=== PATIENT | female | born 1975 | race Caucasian/White ===

== ENCOUNTER 2022-12-13 18:43 | Inpatient (IN) | payer OTHER, SELFPAY ==
--- NOTE | ~2022-12-13 | XR_ITS ---
EXAMINATION: XR CHEST CLINICAL INFORMATION: Orogastric tube placement COMPARISON: None available. TECHNIQUE: Frontal view of the chest was obtained. FINDINGS: No tracheal tube terminates 1.5 cm above the nazia. Enteric tube terminates in the stomach. Mild bronchial wall thickening. Right perihilar streaky opacities. No pleural effusion or pneumothorax. Normal heart size. Pulmonary venous congestion without overt edema. No acute osseous abnormalities. XR/XR chest 1V IMPRESSION: * Endotracheal tube terminates 1.5 cm above the nazia. * Enteric tube terminates in the stomach. * Mild bronchial wall thickening and right perihilar streaky opacities may represent bronchitis and/or atypical infection.
[2022-12-13 18:59] VITALS: BP 150/90; BP 160/82; PULSE 110; PULSE 113; RESP 25; TEMP 37.1; O2SAT 95; O2SAT 97; BMI 30.9
--- NOTE | 2022-12-13 19:06 | ED_ITS ---
HPI - General Adult General Chief complaint: General Medical Stated complaint: [facility]- ETOH withdrawl Time Seen by Provider: 12/13/22 19:06 Source: patient and EMS Mode of arrival: EMS Limitations: no limitations History of Present Illness HPI narrative: Patient is a 47 year old assigned female at with a history of alcohol abuse and opiate abuse presenting to the emergency department today with withdrawal. Patient states that she is withdrawing from alcohol and opiates. Patient denies any dizziness, lightheadedness, abdominal pain, nausea, vomiting, fever, chills, blurry vision, double vision, loss of vision, chest pain, difficulty breathing, shortness of breath, back pain, night sweats, pain with urination, increased urinary frequency, increased urinary urgency, blood in her urine or stool, syncope or a near syncopal episode, recent trauma or falls, bowel incontinence, bladder incontinence, bowel retention, bladder retention, or any other complaints at this time. Severity: moderate Severity scale (1-10): 5 Relieving factors: none Exacerbating factors: none Associated symptoms: denies other symptoms Treatments prior to arrival: other (1mg of Ativan and 100mg of Benadryl) Related Data Allergies Allergy/AdvReac Type Severity Reaction Status Date / Time aspirin Allergy Unknown Verified 12/13/22 19:23 Review of Systems 2 Constitutional: Constitutional: Reports no additional constitutional complaints, Denies chills, Denies fever(s) and Denies night sweats Eyes: Eyes: Reports no additional eye complaints, Denies blurry vision, Denies change in vision, Denies diplopia, Denies eye discharge, Denies loss of vision and Denies eye pain ENT: Denies dizziness Cardiovascular: Cardiovascular: Reports no additional cardiovascular complaints, Denies chest pain, Denies lightheadedness, Denies Loss of Consciousness and Denies dyspnea Respiratory: Respiratory: Reports no additional respiratory complaints and Denies dyspnea Gastrointestinal: Gastrointestinal: Reports no additional gastrointestinal complaints, Denies abdominal pain, Denies melena, Denies hematochezia, Denies change in bowel habits and Denies change in stool character Genitourinary: Genitourinary: Denies hematuria, Denies urinary frequency, Denies dysuria, Denies urinary incontinence, Denies urinary hesitancy and Denies urinary urgency Musculoskeletal: Musculoskeletal: Reports no additional musculoskeletal complaints, Denies numbness and Denies tingling Neurologic: Denies dizziness, Denies loss of vision, Denies numbness, Reports restless legs and Denies tingling Psychiatric: Psychiatric: Reports no additional psychiatric complaints Endocrine: Endocrine: Reports no additional endocrine complaints Hematologic/Lymphatic: Hematologic/Lymphatic: Reports no additional hematologic/lymphatic complaints Allergic/Immunologic: Allergic/Immunologic: Reports no additional allergic/immunologic complaints PMFSH Past Medical History Attestation statement: The following information was validated with the patient. Source: old records reviewed and nursing notes reviewed Social History Social History Advance Directives: No Advance Directives Information Provided: No Physical Exam ED Vital Signs: Vital Signs - 24 hr 12/13/22 18:59 Temperature 98.7 F Pulse Rate 110 H Respiratory Rate 25 H Blood Pressure 150/90 H Pulse Oximetry 97 Oxygen Delivery Method Room Air BMI result Body Mass Index 30.9 Const General: cooperative, no acute distress, alert and awake Nutritional Appearance: well nourished Orientation/consciousness: patient oriented x3 Limitations: no limitations HENMT Head: Yes normal to inspection and Yes atraumatic Ears: hearing grossly normal bilaterally and external ears normal General nose exam: Normal external nose present, no nasal discharge noted and no epistaxis Face and sinus: Yes normal facial exam, No abrasion and No laceration Mouth: Normal oral and palatal mucosa present, no drooling and no muffled voice Eyes General: appearance normal, both eyes and all related structures Periorbital: periorbital findings normal Eyelids: Yes eyelids normal Conjunctivae: conjunctivae normal Pupils: Equal, round and reactive pupils present EOM: EOMs intact bilaterally Neck Neck: Yes normal visual inspection, Yes full ROM and Yes no lymphadenopathy Chest Chest palpation & inspection: normal inspection of the chest Resp Effort & Inspection: normal respiratory effort and able to speak in complete sentences Auscultation: clear to auscultation bilaterally Cardio Rate: tachycardic Rhythm: regular rhythm GI Inspection: Yes normal to inspection Neuro General: patient oriented x3 and moves all extremities Cranial nerves: Yes Equal, round and reactive pupils present Cognition (Neuro): normal cognition Motor exam (neuro): 5/5 motor strength present throughout Sensory Exam: Normal double simultaneous stimulation for sensation Coordination: [id number] test normal Extrem General: Yes normal to inspection, Yes full ROM and Yes capillary refill normal Psych Affect: Labile affect present Attitude: cooperative Thought process: Normal thought process present Thought content: Normal thought content present Medications Administered Discontinued Medications Generic Name Dose Route Start Last Admin Trade Name Jason PRN Reason Stop Dose Admin Haloperidol Lactate 5 mg 12/13/22 19:08 12/13/22 19:12 Haloperidol Lactate 5 Mg/Ml Vial IM 12/13/22 19:09 5 mg ONCE ONE Administration Thiamine HCl 100 mg/ Sodium 101 mls @ 202 mls/hr 12/13/22 21:17 12/13/22 22:30 Chloride IV 12/13/22 21:46 Infused ONCE ONE Infusion Sodium Chloride 1,000 mls @ 999 mls/hr 12/13/22 21:45 12/13/22 22:33 Ns IV 12/13/22 22:45 999 mls/hr .Q1H1M NOAH Administration Lorazepam 2 mg 12/13/22 20:52 12/13/22 21:02 Lorazepam 1 Mg Tablet PO 12/13/22 20:53 2 mg ONCE ONE Administration Lorazepam 2 mg 12/13/22 22:58 12/13/22 23:06 Lorazepam 2 Mg/Ml Vial IVPUSH 12/13/22 22:59 2 mg ONCE ONE Administration Olanzapine 10 mg 12/13/22 21:26 12/13/22 22:07 Olanzapine 10 Mg Vial IM 12/13/22 21:27 10 mg ONCE ONE Administration Phenobarbital Sodium 219 mg 12/13/22 21:30 12/13/22 22:08 Phenobarbital Sodium 130 Mg/Ml Im Once IM 12/13/22 21:31 219 mg ONCE ONE Administration Protocol Zolpidem Tartrate 5 mg 12/13/22 19:37 12/13/22 19:47 Zolpidem Tartrate 5 Mg Tablet PO 12/13/22 19:38 5 mg ONCE ONE Administration Medical Decision Making Medical Decision Making MDM Narrative: Patient is a 47 year old assigned female at with a history of alcohol and drug abuse presenting to the emergency department today with withdrawal. Patient's physical exam showed a restless individual with a CIWA of >20. Patient's blood work showed elevated LFTs which is consistent with alcohol abuse. Patient's EKG showed tachycardia but was otherwise unremarkable. Patient was given multiple medications to help with her restlessness / withdrawal including PO Ativan and Benadryl prior to arrival. Patient was given IV Haldol, IV Zyprexa, and PO Ativan. Patient was not given these as a medical restraint. Patient was started on the phenobarb protocol. I spoke to the hospitalist who initially agreed to admission however, the patient continued to be restless and after discussing the case again with the hospitalist, we determined ICU level of care would be more appropriate. Spoke to the cable splicer assistant who agreed to admission to the ICU. Differential Diagnosis Differential Diagnoses: The differential diagnosis associated with the presentation includes Alcohol withdrawal Drug withdrawal Restlessness Admission/Observation Consideration of admission/observation: Escalation of care including admission/observation considered Patient admitted. Consult Healthcare Provider Management of the patient was discussed with: Hospitalist (As noted in the MDM rationale portion of this note.) and Concrete Curer (Spoke to the cable splicer assistant as noted in the MDM rationale portion of this note.) Lab Data [facility] Lab Attestation statement: I reviewed the patient's lab results. My interpretation of these results are in the MDM rationale portion of this note. 12/13/22 19:26 12/13/22 19:26 Labs: Lab Results 12/13/22 12/13/22 Range/Units 19:26 21:54 WBC 4.1 L (4.8-10.8) X10*3/uL RBC 4.40 (4.20-5.50) X10*6/uL Hgb 10.9 L (12.0-16.0) g/dl Hct 33.4 L (37.0-47.0) % MCV 75.9 L (80.0-98.0) fL MCH 24.8 L (27.0-33.0) pg MCHC 32.6 (31.0-35.0) g/dl RDW 19.9 H (11.0-16.0) % Plt Count 52 L (160-400) X10*3/uL MPV TNP Immature Gran % (Auto) 0.2 (0.0-0.4) % Neut % (Auto) 72.3 (45-73) % Lymph % (Auto) 19.0 L (20-40) % [facility] % (Auto) 8.1 (2-11) % Eos % (Auto) 0.2 (0-4) % Baso % (Auto) 0.2 (0-2) % Lymph # (Auto) 0.8 L (1.2-4.9) X10*3/uL [facility] [place] [facility] # (Auto) 0.3 (0.1-1.2) X10*3/uL Eos # (Auto) 0.0 (0.0-0.4) X10*3/uL Baso # (Auto) 0.0 (0.0-0.2) X10*3/uL Abs Immat Gran (auto) 0.01 (0.00-0.03) X10*3/uL Absolute Neuts (auto) 2.9 (2.0-8.3) x10*3/uL Absolute Nucleated RBC 0.000 (0.0-0.012) X10*3/uL Nucleated RBC % (auto) 0.0 (0.0-0.2) /100WBC PT 19.0 H (11.1-13.3) SEC INR 1.6 H (0.9-1.1) APTT 38.4 H (26.0-36.4) SEC Sodium 138 (135-145) mmol/L Potassium 3.7 (3.3-5.1) mmol/L Chloride 104 (96-108) mmol/L Carbon Dioxide 21 L (22-29) mmol/L Anion Gap 17 (12-20) BUN 11 (9-16) mg/dL Creatinine 0.86 (0.5-1.4) mg/dL Estim Creat Clear Calc 83.6 Estimated GFR > 60 Random Glucose 107 (60-115) mg/dL Calcium 10.4 H (8.4-10.2) mg/dL Magnesium 1.8 (1.6-2.6) mg/dL Iron 47 (30-160) mcg/dL TIBC 372 (228-428) mcg/dL % Saturation 13 L (15-50) % Unsat Iron Binding 325 ug/dL Total Bilirubin 4.1 H (0.0-1.0) mg/dL AST 79 H (5-31) U/L ALT 36 H (0-31) U/L Alkaline Phosphatase 82 (39-117) U/L Total Protein 8.7 H (6.5-8.0) g/dL Albumin 3.3 L (3.5-5.0) g/dL Ethyl Alcohol < 10 Cancelled mg/dL Influenza Type A (PCR) NEGATIVE (Negative) Influenza Type B (PCR) NEGATIVE (Negative) RSV RNA Qual (PCR) NEGATIVE (Negative) SARS-CoV-2 RNA (RT-PCR) NEGATIVE (Negative) Independent Interpretation I performed an independent interpretation of an: EKG Interpretation: Vent. Rate: 116 BPM Atrial Rate: 116 BPM P-R Int: 086 ms QRS Dur: 088 ms QT Int: 368 ms P-R-T Axes: 004 -39 060 degrees QTc Int: 511 ms Sinus tachycardia with short CA Left axis deviation Nonspecific ST abnormality Abnormal ECG No previous ECGs available DD/ 43 Independent Historian Clinical information obtained from an independent historian. History obtained from or confirmed by: EMS (EMS provided additional history and confirmed the history provided by the patient and [facility].) and Other ([facility] staff provided additional history and confirmed the history provided by the patient and EMS. ) Critical Care Time Critical Care Time Critical Care Time: Yes Total Critical Care Time: 55 Attestation: I spent 55 minutes of Critical Care Time with this patient. This does not include time spent on separately reported billable procedures. Discharge Plan Discharge Clinical Impression: Alcohol withdrawal Patient Disposition: Admitted As Inpatient
--- NOTE | 2022-12-13 19:08 | ECG_ITS ---
Test Reason : WITHDRAWAL Blood Pressure : / mmHG Vent. Rate : 116 BPM Atrial Rate : 116 BPM P-R Int : 086 ms QRS Dur : 088 ms QT Int : 368 ms P-R-T Axes : 004 -39 060 degrees QTc Int : 511 ms Sinus tachycardia with short IN Left axis deviation RSR' or QR pattern in V1 suggests right ventricular conduction delay Abnormal ECG No previous ECGs available Referred By: Lidia Smith Electronically Signed By:COURTNEY PAIGE MD
[2022-12-13] MEDS: Haloperidol Lactate 5 MG/ML VIAL IM (19:12)
--- NOTE | 2022-12-13 19:27 | PC.NURSE ---
Patient unable to sit still during triage, constantly moving everything stating that her feet feel like they are burning and she is generally feeling restless. Patient currently denying having thoughts of hurting herself of anyone else. Patient continues to move all around in the bed and attempting to get up.
[2022-12-13 19:32] LABS: MANUAL DIFF FLAG NO
[2022-12-13 19:36] LABS: Basophils Percent Auto 0.2 % (0-2); Eosinophils Percent Auto 0.2 % (0-4); Hematocrit 33.4 % (37.0-47.0); Hemoglobin 10.9 g/dl (12.0-16.0); Imm Gran Abs Auto 0.01 X10*3/uL (0.00-0.03); Imm Gran Pct Auto 0.2 % (0.0-0.4); Lymphocytes Absolute Auto 0.8 X10*3/uL (1.2-4.9); Mean Corpuscular HGB Conc 32.6 g/dl (31.0-35.0); Mean Corpuscular Hemoglobin 24.8 pg (27.0-33.0); Mean Corpuscular Volume 75.9 fL (80.0-98.0); Monocytes Absolute Auto 0.3 X10*3/uL (0.1-1.2); Monocytes Percent Auto 8.1 % (2-11); Neutrophils Absolute Auto 2.9 x10*3/uL (2.0-8.3); Neutrophils Percent Auto 72.3 % (45-73); Red Cell Distribution Width 19.9 % (11.0-16.0); White Blood Count 4.1 X10*3/uL (4.8-10.8)
[2022-12-13 19:41] LABS: INTERNATIONAL NORM RATIO 1.6 (0.9-1.1)
[2022-12-13 19:43] LABS: Partial Thromboplastin Time 38.4 SEC (26.0-36.4)
--- NOTE | 2022-12-13 19:45 | PC.NURSE ---
Patient attempted to go to the bathroom on the toilet but she kept rocking and was unsafe. Unable to obtain urine at this time.
[2022-12-13] MEDS: Zolpidem Tartrate 5 MG TABLET PO (19:47)
[2022-12-13 19:49] LABS: Alanine Aminotransferase 36 U/L (0-31); Albumin Level 3.3 g/dL (3.5-5.0); Alkaline Phosphatase 82 U/L (39-117); Anion Gap 17 (12-20); Aspartate Amino Transferase 79 U/L (5-31); Bilirubin Total 4.1 mg/dL (0.0-1.0); Blood Urea Nitrogen 11 mg/dL (9-16); Calcium 10.4 mg/dL (8.4-10.2); Carbon Dioxide 21 mmol/L (22-29); Chloride 104 mmol/L (96-108); Creatinine Clr Calc Pharmacy 83.6; Estimated Glomerular Filt Rate > 60; Glucose Random 107 mg/dL (60-115); Magnesium 1.8 mg/dL (1.6-2.6); Potassium 3.7 mmol/L (3.3-5.1); Sodium 138 mmol/L (135-145); Total Protein 8.7 g/dL (6.5-8.0)
[2022-12-13 19:52] LABS: Platelet Count 52 X10*3/uL (160-400)
--- NOTE | 2022-12-13 20:00 | PC.NURSE ---
Attempted to get vital signs on patient, patient thrashing around in bed and was unable to get blood pressure at this time. Heart rate noted to in the 110's during assessment. Patient alert and asking for more medication and to go for a walk around the unit. Patient informed that the amount of medications that she has received that it would be unsafe to go for a walk at this time. Patient stating that the medications weren't having an effect on her and that she was still safe to walk around, reenforced that patient was not to get up at this time.
[2022-12-13 20:09] LABS: Influenza A PCR NEGATIVE (Negative); Influenza B PCR NEGATIVE (Negative); Resp Syncy Virus RNA Qual PCR NEGATIVE (Negative); SARS COV2 PCR INHOUSE NEGATIVE (Negative)
[2022-12-13] MEDS: LORazepam 1 MG TABLET 2 MG PO (21:02)
--- OUTSIDE RECORDS SUMMARY | 2022-12-13 21:26 | XMS_ITS | Continuity of Care Document ---
Author Name Unknown Organization [facility] Address [address] [place] [address]- Care Team Providers Care Clerical Methods Analyst Name Role Phone Kahlil Sun MD Primary Care Physician [phone] Encounter [facility] [place] Date(s): 09/29/20 - 10/29/20 [facility] [address] [place] [address]- Attending Physician: Ankit Keller Admitting Physician: Ankit Keller Referring Physician: AdmtrAnkit Allergies, Adverse Reactions, Alerts Substance Reaction Severity Status Ziagen Active amitriptyline 1 Mental status Active aspirin 2 facial edema and sob Severe Active nevirapine Active Levaquin 3 Active 1dreaming, near halliucinations 2facial edema and sob 3itchy, nervous Immunizations Given and Recorded Vaccine Date Status Refusal Reason SARS-CoV-2 (COVID-19) mRNA BNT-162b2 vac 1 04/26/20 Recorded SARS-CoV-2 (COVID-19) mRNA BNT-162b2 vac 2 04/05/20 Recorded Influenza Virus Vaccine (oldterm) 3 11/22/19 Recor ded Influenza Virus Vaccine (oldterm) 12/22/07 Given pneumococcal 23-valent vaccine 09/21/19 Given influenza virus vaccine, inactivated 4 12/17/18 Re corded influenza virus vaccine, inactivated 5 12/19/17 Re corded influenza virus vaccine, inactivated 12/09/15 Give n influenza virus vaccine, inactivated 12/04/14 Give n influenza virus vaccine, inactivated 12/14/13 Give n influenza virus vaccine, inactivated 12/15/12 Give n influenza virus vaccine, inactivated 6 11/18/11 Gi feliciano influenza virus vaccine, inactivated 11/20/09 Give n influenza virus vaccine, inactivated 7 01/30/04 Gi feliciano hepatitis B adult vaccine 08/23/18 Given hepatitis B adult vaccine 08/23/18 Given hepatitis B adult vaccine 8 08/29/01 Given hepatitis B adult vaccine 9 03/10/01 Given hepatitis B adult vaccine 10 10/28/00 Given Afluria (oldterm) 12/03/16 Given pneumococcal 13-valent vaccine 11 03/24/12 Given Adacel (Tdap) (oldterm) 05/16/09 Given Hepatitis B Vaccine (old term) 12 04/11/09 Given Hepatitis B Vaccine (old term) 13 12/22/07 Given Hepatitis B Vaccine (old term) 12/28/06 Given Hepatitis B Vaccine (old term) 14 09/27/01 Given Influenza Vaccine (oldterm) 15 12/27/08 Given Influenza Vaccine (oldterm) 16 12/28/06 Given Influenza Inactive (IM) (oldterm) 17 11/29/08 Give n diphtheria-tetanus toxoids (DT) 18 02/16/07 Given Hepatitis A Vaccine (oldterm) 12/28/06 Given Hepatitis A Vaccine (oldterm) 19 10/27/05 Given Pneumococcal Poly (PPV23) (oldterm) 11/10/06 Given Hepatitis A Adult Vaccine 20 04/14/05 Given tetanus-diphtheria toxoids (Td) 03/10/01 Given 1Result Comment: #2, [facility] Jennifer 2Result Comment: [facility] 3Result Comment: [facility] 4Result Comment: pharmacy 5Location History: [place] 6Admin Note: vis 08/31/11 7Admin Note: ADMIN.BY RN 8Admin Note: Admin. by RN 9Admin Note: Admin. by RN 10Admin Note: Admin. 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 by PAM Medications 10,000 lux therapeutic light 10,000 lux therapeutic light, See Instructions, # 1 units, Refills 0, Tot. Refills 0, Maintenance, use x 30 minutes daily in morning or evening, increasing to twice a day if needed. Dx: F33.9, 01/25/18 8:06:20 EST, Compound Start Date: 01/25/18 Status: Ordered acamprosate 333 mg oral delayed release tablet 2 tablet = 666 mg, By Mouth, 3 times a day, # 180 tablet, 1 Refills, Maintenance, 09/12/20 16:18:00EDT, CR Tablet, [facility] #[id number], Partial fill upon patient request if the prescription is for a schedule II opioid drug., 162, cm, 09/12/20... Start Date: 09/12/20 Status: Ordered acyclovir 400 mg oral tablet 1 tablet = 400 mg, By Mouth, 2 times a day, # 10 tablet, 5 Refills, Maintenance, 01/26/20 16:20:00 EST, [facility], 162.56, cm, 10/09/19 10:36:00 EDT, Height, 72.3, kg, 09/26/18 16:01:00 EDT, Dry Weight Start Date: 01/26/20 Stop Date: 02/25/20 Status: Ordered albuterol 0.083% inhalation solution 3 mL = 2.5 mg, Inhalation, Every 6 hours, PRN Wheezing/Shortness of Breath, # 60 each, 0 Refills, Maintenance, 06/07/20 12:51:00 EDT, Solution, [facility] #[id number], 162.56, cm, 05/23/20 14:31:00 EDT, Height, 77, kg, 03/21/20 15:04:00 EST, Dry... Start Date: 06/07/20 Status: Ordered Alcohol Wipes See Instructions, # 100 each, Refills 2, Tot. Refills 2, Maintenance, for glucose testing as directed. Dx: E16.1 - hypoglycemia, R73.9 - Hyperglycemia, 06/12/20 17:54:00 EDT, Compound, 163, cm, 06/08/20 17:25:00 EDT, Height, 82.1, kg, 06/08/20 17:25:0... Start Date: 06/12/20 Status: Ordered Biktarvy oral tablet 1 tablet, By Mouth, Daily, # 90 tablet, 3 Refills, Maintenance, 03/02/20 19:50:00 EST, [facility] #[id number], 1 tablet By Mouth Daily, 162.56, cm, 01/04/20 9:40:00 EST, Height, 72.3, kg, 09/26/18 16:01:00 EDT, Dry Weight Start Date: 03/02/20 Status: Ordered Blood Pressure Meter Blood Pressure Meter, See Instructions, # 1 each, Refills 0, Tot. Refills 0, Maintenance, Use for, 07/11/18 16:11:47 EDT, Compound Start Date: 07/11/18 Status: Ordered buprenorphine-naloxone 2 mg-0.5 mg sublingual film 0.25 each, Sublingual, Daily, Dino [id number], # 8 film, 0 Refills, Maintenance, 12/15/19 19:00:00 EDT, [facility] #[id number], Partial fill on request., 0.25 each Sublingual Daily,Instr:Dino [id number], 162.56, cm, 10/09/19 10:36:00 EDT, Hei... Start Date: 12/15/19 Status: Ordered buprenorphine-naloxone 8 mg-2 mg sublingual film 1 film, Sublingual, Daily, dissolve under the tongue, # 7 film, 0 Refills, Maintenance, 10/29/20 18:06:00 EDT, Film, [facility] #[id number], Partial fill upon patient request if the prescriptionis for a schedule II opioid drug., 1 film Sublingua... Start Date: 10/29/20 Stop Date: 11/05/20 Status: Ordered cetirizine 10 mg oral tablet 1 tablet = 10 mg, By Mouth, Daily, For allergies., # 30 tablet, 2 Refills, Maintenance, 06/29/19 16:02:00 EDT, Tablet, [facility] #[id number], 162.56, cm, 05/03/19 16:30:00 EST, Height, 72.3, kg, 09/26/18 16:01:00 EDT, Dry Weight Start Date: 06/29/19 Status: Ordered cloNIDine 0.1 mg oral tablet 0.1 mg, 1, tablet, By Mouth, 3 times a day, as needed for anxiety, # 25 tablet, Refills 0, Tot. Refills 0, Maintenance, 10/10/19 21:36:00 EDT, Route to Pharmacy Electronically, [facility] #[id number], 162.56, cm, 10/09/19 10:36:00 EDT, Height, 72... Start Date: 10/10/19 Status: Ordered diphenhydrAMINE 25 mg oral capsule TK 1 C PO HS PRN Start Date: 06/29/19 Status: Ordered escitalopram 10 mg oral tablet 1 tablet = 10 mg, By Mouth, Daily, TK 1 T PO QD Start Date: 06/29/19 Status: Ordered Flonase 50 mcg/inh nasal spray 2 sprays, Nares, Both, Daily in AM, # 16 Gm, 5 Refills, Maintenance, 07/19/19 15:19:00 EDT, [place], [facility] #[id number], 2 sprays Nares, Both Daily in AM,x30 days, 162.56, cm, 05/03/19 16:30:00 EST, Height, 72.3, kg, 09/26/18 16:01:00 EDT, Dry... Start Date: 07/19/19 Stop Date: 01/15/20 Status: Ordered Flovent HFA 44 mcg/inh inhalation aerosol 1 puffs, Inhalation, 2 times a day, # 1 each, 5 Refills, Maintenance, 06/07/20 12:52:00 EDT, Aerosol, [facility] #[id number], 162.56, cm, 05/23/20 14:31:00 EDT, Height, 77, kg, 03/21/20 15:04:00EST, Dry Weight Start Date: 06/07/20 Status: Ordered Freestyle Lite Lancets See Instructions, # 50 each, Refills 2, Tot. Refills 2, Maintenance, Test every 30 min for 4 hours after selected meals, up to 8 times/day, up to 6 days per month. Dx: E16.1 - hypoglycemia, R73.9 - Hyperglycemia, 09/10/20 17:56:00 EDT, Compound, 163,... Start Date: 09/10/20 Stop Date: 12/09/20 Status: Ordered Freestyle Lite Monitor See Instructions, # 1 each, Refills 0, Tot. Refills 0, Maintenance, Use to test blood sugar 2 timesa day, 06/14/20 12:41:00 EDT, Supply, 163, cm, 06/08/20 17:25:00 EDT, Height, 82.1, kg, 06/08/20 17:25:00 EDT, Dry Weight Start Date: 06/14/20 Status: Ordered Freestyle Lite Test Strips See Instructions, # 50 each, Refills 2, Tot. Refills 2, Maintenance, Test every 30 min for 4 hours after selected meals, up to 8 times/day, up to 6 days per month. Dx: E16.1 - hypoglycemia, R73.9 - Hyperglycemia, 06/17/20 16:51:00 EDT, Compound, 163,... Start Date: 06/17/20 Status: Ordered gabapentin 300 mg oral capsule See Instructions, 1 capsule By Mouth tonight then every 6 hrs x 1 day, every 8 hrs x 1 day, every 12 hrs x 1 day, and once on last day., # 11 capsule, Refills 0, Tot. Refills 0, Maintenance, 02/08/2016:44:00 EST, Instructions Replace Required Details... Start Date: 02/08/20 Status: Ordered Glucose Monitor See Instructions, PRN, # 1 each, Refills 0, Tot. Refills 0, Maintenance, diabetes mellitus 2, Freestyle Lite. Test every 30 min for 4 hours after selected meals, up to 8 times/day, up to 6 days per month. Dx: E16.1 - hypoglycemia, R73.9 - Hyperglyce... Start Date: 06/17/20 Status: Ordered Home Blood Pressure Monitor See Instructions, # 1 each, Maintenance, covering for Hsarri Pioggia Blood pressure monitor neededto monitor blood pressure DX: hypertension, 07/11/18 17:28:42 EDT, Compound Start Date: 07/11/18 Status: Ordered humidifier humidifier, See Instructions, # 1 each, Refills 0, Tot. Refills 0, Maintenance, use as directed forchronic sinusitis J32, 04/09/17 14:21:37 EST, Compound Start Date: 04/09/17 Status: Ordered hydrochlorothiazide 12.5 mg oral tablet 1 tablet = 12.5 mg, By Mouth, Daily, # 90 tablet, 3 Refills, Maintenance, 03/02/20 19:48:00 EST, Tablet, [facility] #[id number], 30 day supply preferred for present, 162.56, cm, 01/04/20 9:40:00EST, Height, 72.3, kg, 09/26/18 16:01:00 EDT, Dry W... Start Date: 03/02/20 Status: Ordered Liletta 52 mg intrauterine device See Instructions, 1 each Once, # 1 each, 0 Refills, Soft Stop, 07/11/18 16:17:37 EDT Start Date: 07/11/18 Status: Ordered loratadine 10 mg oral tablet 10 mg, 1, tablet, By Mouth, Daily, PRN, # 30 tablet, Refills 3, Tot. Refills 3, Maintenance, allergy/itch, 05/12/18 14:45:33 EDT, Route to Pharmacy Electronically, [id number], [facility] Start Date: 05/12/18 Status: Ordered LORazepam 0.5 mg oral tablet 0.5 tablet = 0.25 mg, By Mouth, 2 times a day, PRN as needed for anxiety, # 20 tablet, 1 Refills, Maintenance, 05/16/19 23:11:00 EDT, Tablet, [facility] #[id number], 162.56, cm, 05/03/19 16:30:00 EST, Height, 72.3, kg, 09/26/18 16:01:00 EDT, Dry... Start Date: 05/16/19 Status: Ordered losartan 100 mg oral tablet 1 tablet, By Mouth, Daily, # 30 tablet, 5 Refills, Maintenance, 09/24/20 16:00:00 EDT, [facility] #[id number], 162, cm, 09/19/20 15:59:00 EDT, Height, 82.1, kg, 06/08/20 17:25:00 EDT, Dry Weight Start Date: 09/24/20 Status: Ordered meclizine 25 mg oral tablet 1 tablet = 25 mg, By Mouth, 2 times a day, # 30 tablet, 1 Refills, Maintenance, 03/30/19 15:49:00 EST, Tablet, [facility] #[id number], 162.56, cm, 03/08/19 14:34:00 EST, Height, 72.3, kg, 09/26/18 16:01:00 EDT, Dry Weight Start Date: 03/30/19 Status: Ordered Narcan 4 mg/0.1 mL nasal spray = 4 mg, Inhalation, Once, # 2 each, 1 Refills, Soft Stop, 10/29/20 12:23:00 EDT, [facility] #[id number], Partial fill upon patient request if the prescription is for a schedule II opioid drug., 162, cm, 09/29/20 15:30:00 EDT, Height, 86.3, kg, 08... Start Date: 10/29/20 Status: Ordered pantoprazole 20 mg oral delayed release tablet 1 tablet = 20 mg, By Mouth, Daily in AM, take 30 minutes before first meal, # 30 tablet, 2 Refills,Maintenance, 08/08/20 15:21:00 EDT, CR Tablet, 162, cm, 06/19/20 8:04:00 EDT, Height, 82.1, kg, 06/08/20 17:25:00 EDT, Dry Weight Start Date: 08/08/20 Status: Ordered PEG-3350 with Electrolytes (Eqv-GoLYTELY) oral powder for reconstitution See Instructions, used as directed, # 1 each, 0 Refills, Maintenance, 06/04/20 16:46:00 EDT, [facility] #[id number], OK to sub for any gallon prep, used as directed, 162.56, cm, 05/23/20 14:31:00 EDT, Height, 77, kg, 03/21/20 15:04:00 EST, Dry We... Start Date: 06/04/20 Status: Ordered ProAir HFA 90 mcg/inh inhalation aerosol with adapter 2, puffs, Inhalation, Every 4 hours, PRN, use with spacer chamber, # 1 each, Refills 0, Tot. Refills 0, Maintenance, 06/07/20 12:51:00 EDT, Aerosol, Route to Pharmacy Electronically, [id number], [facility] #[id number], 1... Start Date: 06/07/20 Status: Ordered Senna 8.6 mg oral tablet 1-3 tablet, By Mouth, Daily, for constipation, # 90 tablet, Refills 5, Tot. Refills 5, Maintenance,03/26/20 15:25:00 EST, Route to Pharmacy Electronically, [facility] #[id number] Tablet, 162.56, cm, 03/21/20 15:01:00 EST, Height, 77, kg, ... Start Date: 03/26/20 Status: Ordered Spacer for inhalers Spacer for inhalers, See Instructions, # 1 each, Refills 0, Tot. Refills 0, Maintenance, Use with inhalers as directed. [place]., 06/07/19 15:07:00 EDT, Compound, 162.56, cm, 05/03/19 16:30:00 EST, Height, 72.3, kg, 09/26/18 16:01:00 EDT, Dry Weight Start Date: 06/07/19 Status: Ordered Sublocade 100 mg/0.5 mL subcutaneous solution, extended release = 100 mg, Subcutaneous Infusion, Every 28 days, # 1 each, 0 Refills, Maintenance, 10/29/20 14:36:00EDT, Partial fill upon patient request if the prescription is for a schedule II opioid drug. Start Date: 10/29/20 Status: Ordered SUMAtriptan 25 mg oral tablet 1 tablet = 25 mg, By Mouth, Daily, PRN as needed for migraine headache, may repeat dose after 2 hours up to a maximum of 2, # 6 tablet, 1 Refills, Maintenance, 03/02/20 19:47:00 EST, Tablet, [facility] #[id number], 162.56, cm, 01/04/20 9:40:00 ES... Start Date: 03/02/20 Status: Ordered Zofran 4 mg oral tablet 1 tablet = 4 mg, By Mouth, 2 times a day, PRN Nausea & Vomiting, # 10 tablet, 0 Refills, Maintenance, 09/19/20 18:37:00 EDT, Tablet, [facility] #[id number], 162, cm, 09/19/20 15:59:00 EDT, Height, 82.1, kg, 06/08/20 17:25:00 EDT, Dry Weight Start Date: 09/19/20 Status: Ordered zolpidem 5 mg oral tablet 0 Refills, Maintenance, 01/22/18 21:33:47 EST Start Date: 01/22/18 Status: Ordered Problem List Condition Effective Dates Status Health Status Inform ant Abdominal bloating(Confirmed) Active Acne(Confirmed) Active HIV-AIDS-. ART hx in 8 note.(Confirmed) 1, 2 1994 Active Ascites(Confirmed) Active Asthma(Confirmed) Active Breast lump in upper inner quadrant(Confirmed) Active Cervicovaginal cytology: Low grade squamous intraepithelial lesion(Confirmed) Active Lumbosacral pain, chronic(Confirmed) Active Cirrhosis of liver, hx of he patitis C treated 2013(Confirmed) Active Straining with stools(Confirmed) Active Diabetes mellitus(Confirmed) Active Gastropathy(Confirmed) Active Acid reflux(Confirmed) Active H/O heartburn(Confirmed) Active H/O nausea(Confirmed) Active Hypertension(Confirmed) Active Insomnia(Confirmed) 2016 Active Migraine(Confirmed) Active Opioid dependence(Confirmed) Active Opioid dependence(Confirmed) Active *[id number] Care Partn renee Saavedra(Confirmed) Active Health care maintenance(Confirmed) Active Routine screening for STI (s exually transmitted infection)(Confirmed) Active Diabetes mellitus screening(Confirmed) Active Portal hypertensive gastropathy(Confirmed) 11/30/11 Active Psychological stress(Confirmed) 3 Active Rectal pain(Confirmed) Active Secondary oligomenorrhea(Confirmed) 08/14/10 Active TMJ - click(Confirmed) Active Tubular adenoma of colon(Confirmed) 4 03/30/17 Active UTI symptoms(Confirmed) Active Varicose veins of both lower extremities(Confirmed) Active Vitamin D deficiency(Confirmed) 2010 Active 1CBV + NFV on/off/on-suppressed, switch 04/08 to Truvada + ATV 500mg for QD adherence, switch 03/10 toTruvada + raltegravir for upperGI tolerance, and QD need over. 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
--- OUTSIDE RECORDS SUMMARY | 2022-12-13 21:26 | XMS_ITS | Continuity of Care Document ---
Author Name Unknown Organization 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/[place] [address]- Attending Physician: Kahlil Sun MD Admitting Physician: Kahlil Sun MD Allergies, Adverse Reactions, Alerts Substance Reaction Severity Status amitriptyline 1 Mental status Active aspirin 2 facial edema and sob Severe Active nevirapine Active Levaquin 3 Active Ziagen Active 1dreaming, near halliucinations 2facial edema and sob 3itchy, nervous Immunizations Given and Recorded Vaccine Date Status Refusal Reason tetanus/diphtheria/pertussis, acel(Tdap) 09/04/21 Given SARS-CoV-2 (COVID-19) mRNA BNT-162b2 vac 1 02/07/21 Recorded SARS-CoV-2 (COVID-19) mRNA BNT-162b2 vac 2 04/26/20 Recorded SARS-CoV-2 (COVID-19) mRNA BNT-162b2 vac 3 04/05/20 Recorded influenza virus vaccine, inactivated 01/01/21 Devan rded influenza virus vaccine, inactivated 4 12/17/18 Re [...] virus vaccine, inactivated 7 01/30/04 Gi feliciano Influenza Virus Vaccine (oldterm) 8 11/22/19 Recor ded Influenza Virus Vaccine (oldterm) 12/22/07 Given pneumococcal 23-valent vaccine 09/21/19 Given hepatitis B adult vaccine 08/23/18 Given hepatitis B adult vaccine 08/23/18 Given hepatitis B adult vaccine 9 08/29/01 Given hepatitis B adult vaccine 10 03/10/01 Given hepatitis B adult vaccine 11 10/28/00 Given Afluria (oldterm) 12/03/16 Given pneumococcal 13-valent vaccine 12 03/24/12 Given Adacel (Tdap) (oldterm) 05/16/09 Given Hepatitis B Vaccine (old term) 13 04/11/09 Given Hepatitis B Vaccine (old term) 14 12/22/07 Given Hepatitis B Vaccine (old term) 12/28/06 Given Hepatitis B Vaccine (old term) 15 09/27/01 Given Influenza Vaccine (oldterm) 16 12/27/08 Given Influenza Vaccine (oldterm) 17 12/28/06 Given Influenza Inactive (IM) (oldterm) 18 11/29/08 Give n diphtheria-tetanus toxoids (DT) 19 02/16/07 Given Hepatitis A Vaccine (oldterm) 12/28/06 Given Hepatitis A Vaccine (oldterm) 20 10/27/05 Given Pneumococcal Poly (PPV23) (oldterm) 11/10/06 Given Hepatitis A Adult Vaccine 21 04/14/05 Given tetanus-diphtheria toxoids (Td) 03/10/01 Given 1Result Comment: Patient remained 20 minutes no adverse events reported or observed. 2Result Comment: #2, [facility] 3Result Comment: [facility] 4Result Comment: pharmacy 5Location History: [facility] 6Admin Note: vis 08/31/11 7Admin Note: ADMIN.BY RN 8Result Comment: [facility] 9Admin Note: Admin. by RN 10Admin Note: Admin. by RN 11Admin Note: Admin. by RN 12Admin Note: vis 16 13Admin Note: dose #6 (3rd in 2nd series) 14Admin Note: dose #5 15Admin Note: #3 16Admin Note: LITO [employer] 17Admin Note: ADMIN LILLIAN CONTRERAS 18Admin Note: BY LEXI Agudelo 19Admin Note: not Adacel 20Admin Note: #2 21Admin Note: Admin. by RN Medications 10,000 lux therapeutic light 10,000 lux therapeutic light, See Instructions, # 1 units, Refills 0, Tot. Refills 0, Maintenance, use x 30 minutes daily in morning or evening, increasing to twice a day if needed. Dx: F33.9, 01/25/18 8:06:20 EST, Compound Start Date: 01/25/18 Status: Ordered acyclovir 400 mg oral tablet 1 tablet = 400 mg, By Mouth, 2 times a day, # 10 tablet, 5 Refills, Maintenance, 01/08/21 18:41:00 EST, [facility] #[id number], 162, cm, 12/17/20 23:19:00 EDT, Height, 86.3, kg, 09/29/20 15:30:00 EDT, Dry Weight Start Date: 01/08/21 Stop Date: 02/07/21 Status: Ordered Albuterol (Eqv-ProAir HFA) 90 mcg/inh inhalation aerosol 2 puffs, Inhalation, Every 4 hours, PRN NEEDED FOR WHEEZING/SHORTNESS OF BREATH, USE WITH SPACERCHAMBER, # 8.5 Gm, 5 Refills, [facility] #[id number], 16, INHALE 2 PUFFS INTO LUNGS EVERY 4 HOURS NEEDED FOR WHEEZING/SHORTNESS OF BREATH. USE... Start Date: 11/13/20 Status: Ordered albuterol 0.083% inhalation solution 3 mL = 2.5 mg, Inhalation, Every 6 hours, PRN Wheezing/Shortness of Breath, # 60 each, 0 Refills, Maintenance, 06/07/20 12:51:00 EDT, Solution, [facility] #[id number], 162.56, cm, 05/23/20 14:31:00 EDT, Height, 77, kg, 03/21/20 15:04:00 EST, Dry... Start Date: 06/07/20 Status: Ordered Alcohol Wipes See Instructions, # 100 each, Refills 2, Tot. Refills 2, Maintenance, for glucose testing as directed. Dx: E16.1 - hypoglycemia, R73.9 - Hyperglycemia, 06/12/20 17:54:00 EDT, Compound, 163, cm, 06/08/20 17:25:00 EDT, Height, 82.1, kg, 06/08/20 17:25:0... Start Date: 06/12/20 Status: Ordered BenzaClin 1%-5% topical gel 1 application, Topically, 2 times a day, start daily or every other day in evening. Increase to twice day in the morning and the evening as tolerated, # 50 Gm, 2 Refills, Maintenance, 08/30/22 11:09:00 EDT, Gel, [facility] #[id number], 1 applic... Start Date: 08/30/22 Status: Ordered benzoyl peroxide 2.5% topical gel 1 application, Topically, 2 times a day, keep away from eyes and mucous membranes. clean affected area before application. Start daily and increase to twice a day if tolerated., # 60 Gm, 3 Refills, Maintenance, 09/08/22 22:51:00 EDT, [facility]... Start Date: 09/08/22 Status: Ordered Biktarvy oral tablet 1 tablet, By Mouth, Daily, # 30 tablet, 12 Refills, Maintenance, 04/17/22 7:54:00 EST, [facility] #[id number], 1 tablet By Mouth Daily, 162.56, cm, 04/16/22 16:00:00 EST, Height, 87.6, kg, 10/24/21 8:00:00 EDT, Dry Weight Start Date: 04/17/22 Status: Ordered Biktarvy oral tablet See Instructions, TAKE 1 TABLET BY MOUTH DAILY, # 90 tablet, 0 Refills, Maintenance, 07/15/22 13:50:00 EDT, [facility] #[id number], 90, TAKE 1 TABLET BY MOUTH DAILY, 162.56, cm, 06/25/22 16:16:00 EDT, Height, 87.6, kg, 10/24/21 8:00:00 EDT, Dry W... Start Date: 07/15/22 Status: Ordered Blood Pressure Meter Blood Pressure Meter, See Instructions, # 1 each, Refills 0, Tot. Refills 0, Maintenance, Use for, 07/11/18 16:11:47 EDT, Compound Start Date: 07/11/18 Status: Ordered cetirizine 10 mg oral tablet 1 tablet = 10 mg, By Mouth, Daily, # 30 tablet, 1 Refills, Maintenance, 07/10/21 18:35:00 EDT, Tablet, [facility] #[id number], Partial fill upon patient request if the prescription is for a schedule II opioid drug., 162, cm, 06/19/21 15:40:00 EDT... Start Date: 07/10/21 Status: Ordered clindamycin 1% topical gel 1 application, Topically, 2 times a day, for 30 days, apply a thin film to affected area after washing, then apply benzoyl peroxide. Start daily and increase to twice a day if tolerated., # 30 Gm, 3 Refills, Acute 01/06/23 22:51:00 EST, 09/08/22 22:51... Start Date: 09/08/22 Stop Date: 01/06/23 Status: Ordered cloNIDine 0.1 mg oral tablet 1, tablet, By Mouth, 3 times a day, PRN, # 90 tablet, Refills 11, Tot. Refills 11, Maintenance, NEEDED FOR ANXIETY, 08/12/22 15:06:00 EDT, Route to Pharmacy Electronically, [facility] #[id number], 162.56, cm, 07/30/22 10:55:00 EDT, Height, 79.... Start Date: 08/12/22 Status: Ordered Colace Clear 50 mg oral capsule 1 capsule = 50 mg, By Mouth, 2 times a day, PRN as needed for constipation, # 60 capsule, 0 Refills, Maintenance, 12/05/21 15:09:00 EDT, [facility] #[id number], Partial fill upon patient requestif the prescription is for a schedule II opioid nhi... Start Date: 12/05/21 Status: Ordered diclofenac 1% topical gel = 2 Gm, Topically, 4 times a day, PRN for pain, not to exceed: 10 gm/day, # 100 Gm, 1 Refills, Maintenance, 05/29/21 16:52:00 EDT, Gel, [facility], Partial fill upon patient request if the prescription is for a schedule II opioid... Start Date: 05/29/21 Status: Ordered Dulera 200 mcg-5 mcg/inh inhalation aerosol 2 puffs, Inhalation, 2 times a day, # 1 each, 3 Refills, Maintenance, 01/28/21 16:44:00 EST, Aerosol, [facility], STOP FLOVENT, 2 puffs Inhalation 2 times a day,x30 days, 162, cm,01/28/21 16:02:00 EST, Height, 86.3, kg, 09/29/20 1... Start Date: 01/28/21 Stop Date: 05/28/21 Status: Ordered escitalopram 20 mg oral tablet 1 tablet = 20 mg, By Mouth, Daily, # 90 tablet, 3 Refills, Maintenance, 11/04/22 16:35:00 EDT, Tablet, [facility] #[id number], 162.56, cm, 10/20/22 7:18:00 EDT, Height, 79.54, kg, 07/30/22 10:55:00 EDT, Dry Weight Start Date: 11/04/22 Status: Ordered ferrous fumarate 324 mg oral tablet 1 tablet = 324 mg, By Mouth, Every other day, # 45 tablet, 0 Refills, Maintenance, 07/31/22 11:19:00 EDT, Tablet, [facility] #[id number], Partial fill upon patient request if the prescription isfor a schedule II opioid drug., 162.56, cm, ... Start Date: 07/31/22 Stop Date: 10/29/22 Status: Ordered finger pulse oximeter finger pulse oximeter, See Instructions, # 1 each, Refills 0, Tot. Refills 0, Maintenance, COVID-19U07.1 immunocompromise, 09/04/21 20:29:00 EDT, Compound, 162, cm, 07/31/21 16:00:00 EDT, Height, 86.3, kg, 09/29/20 15:30:00 EDT, Dry Weight Start Date: 09/04/21 Status: Ordered Flonase 50 mcg/inh nasal spray 2 sprays, Nares, Both, Daily in AM, # 16 Gm, 5 Refills, Maintenance, 07/19/19 15:19:00 EDT, [place], [facility] #[id number], 2 sprays Nares, Both Daily in AM,x30 days, 162.56, cm, 05/03/19 16:30:00 EST, Height, 72.3, kg, 09/26/18 16:01:00 EDT, Dry... Start Date: 07/19/19 Stop Date: 01/15/20 Status: Ordered fluconazole 150 mg oral tablet 1 tablet = 150 mg, By Mouth, Once, # 1 tablet, 0 Refills, Soft Stop, 02/09/22 13:14:00 EST, Tablet,162.56, cm, 01/02/22 12:19:00 EDT, Height, 87.6, kg, 10/24/21 8:00:00 EDT, Dry Weight Start Date: 02/09/22 Status: Ordered Freestyle Lite Lancets See Instructions, [...] Compound, 163,... Start Date: 06/17/20 Status: Ordered furosemide 40 mg oral tablet 40 mg, 1, tablet, By Mouth, Daily, dose increased. Cancel Rx for 20 mg, # 90 tablet, Refills 1, Tot. Refills 1, Maintenance, 09/24/22 17:20:00 EDT, Route to Pharmacy Electronically, [facility] #[id number], 162.56, cm, 09/17/22 12:56:00 EDT, Heigh... Start Date: 09/24/22 Status: Ordered Glucose Monitor See Instructions, PRN, [...] Instructions, # 1 each, Maintenance, covering for [facility] Blood pressure monitor neededto monitor blood pressure DX: hypertension, 07/11/18 17:28:42 EDT, Compound Start Date: 07/11/18 Status: Ordered humidifier humidifier, See Instructions, # 1 each, Refills 0, Tot. Refills 0, Maintenance, use as directed forchronic sinusitis J32, 04/09/17 14:21:37 EST, Compound Start Date: 04/09/17 Status: Ordered lactulose 10 gm/15 ml oral syrup 30 mL = 20 Gm, By Mouth, 4 times a day, # 1,800 mL, 2 Refills, Maintenance, 07/30/22 12:17:00 EDT, Syrup, [facility] #[id number], 30 mL By Mouth 4 times a day, 162.56, cm, 07/30/22 10:55:00 EDT,Height, 79.54, kg, 07/30/22 10:55:00 EDT, Dry Weight Start Date: 07/30/22 Status: Ordered losartan 100 mg oral tablet 1 tablet, By Mouth, Daily, # 30 tablet, 5 Refills, [facility] #[id number], 162, cm, 10/09/21 16:19:00 EDT, Height, 86.3, kg, 09/29/20 15:30:00 EDT, Dry Weight Start Date: 10/20/21 Status: Ordered meclizine 25 mg oral tablet 1 tablet = 25 mg, By Mouth, 2 times a day, # 30 tablet, 1 Refills, Maintenance, 07/10/21 17:25:00 EDT, Tablet, [facility] #[id number], 162, cm, 06/19/21 15:40:00 EDT, Height, 86.3, kg, 09/29/20 15:30:00 EDT, Dry Weight Start Date: 07/10/21 Status: Ordered multivitamin with iron Multiple Vitamins with Iron oral tablet 1 tablet, By Mouth, Daily, # 30 tablet, 11 Refills, Maintenance, 04/17/22 7:51:00 EST, Tablet, [facility] #[id number], 1 tablet By Mouth Daily, 162.56, cm, 04/16/22 16:00:00 EST, Height, 87.6, kg, 10/24/21 8:00:00 EDT, Dry Weight Start Date: 04/17/22 Status: Ordered Narcan 4 mg/0.1 mL nasal spray = 4 mg, Inhalation, Once, # 2 each, 1 Refills, Soft Stop, 10/29/20 12:23:00 EDT, [facility] #[id number], Partial fill upon patient request if the prescription is for a schedule II opioid drug., 162, cm, 09/29/20 15:30:00 EDT, Height, 86.3, kg, 08... Start Date: 10/29/20 Status: Ordered ondansetron 4 mg oral tablet 1 tablet = 4 mg, By Mouth, Daily, PRN Nausea & Vomiting, # 10 tablet, 3 Refills, Maintenance, 06/25/22 17:28:00 EDT, [facility] #[id number], 162.56, cm, 06/25/22 16:16:00 EDT, Height, 87.6, kg, 10/24/21 8:00:00 EDT, Dry Weight Start Date: 06/25/22 Status: Ordered pantoprazole 20 mg oral delayed release tablet 1 tablet, By Mouth, Daily, # 30 tablet, 5 Refills, Maintenance, 09/16/22 10:57:00 EDT, 162.56, cm, 08/20/22 13:54:00 EDT, Height, 79.54, kg, 07/30/22 10:55:00 EDT, Dry Weight Start Date: 09/16/22 Status: Ordered rifAXIMin 550 mg oral tablet 1 tablet = 550 mg, By Mouth, 2 times a day, # 60 tablet, 2 Refills, Maintenance, 08/21/22 17:50:00 EDT, Tablet, [facility] #[id number], this is correct dose. 200mg Rx just sent by mistake., 162.56, cm, 08/20/22 13:54:00 EDT, Height, 79.54, kg, 06... Start Date: 08/21/22 Status: Ordered Senna 8.6 mg oral tablet 1-3 tablet, By Mouth, Daily, for constipation, # 90 tablet, Refills 5, Tot. Refills 5, Maintenance,03/26/20 15:25:00 EST, Route to Pharmacy Electronically, [facility] #[id number] Tablet, 162.56, cm, 03/21/20 15:01:00 EST, Height, 77, kg, 2... Start Date: 03/26/20 Status: Ordered Spacer for inhalers Spacer for inhalers, See Instructions, # 1 each, Refills 0, Tot. Refills 0, Maintenance, Dx: asthma. Use with inhalers as directed., 01/08/21 19:38:00 EST, Compound, 162, cm, 12/17/20 23:19:00 EDT, Height, 86.3, kg, 09/29/20 15:30:00 EDT, Dry Weight Start Date: 01/08/21 Status: Ordered spironolactone 100 mg oral tablet 100 mg, 1, tablet, By Mouth, Daily, dose increased. Cancel Rx for 50mg, # 90 tablet, Refills 1, Tot. Refills 1, Maintenance, 09/24/22 17:20:00 EDT, Route to Pharmacy Electronically, [facility] #[id number], 162.56, cm, 09/17/22 12:56:00 EDT, Heigh... Start Date: 09/24/22 Status: Ordered Suboxone 8 mg-2 mg Sublingual Film 2 film, Sublingual, Daily, [id number] Dino dissolve under the tongue may fill less due 11/11/2022,# 28 film, 0 Refills, Maintenance, 11/06/22 18:48:00 EDT, Film, [facility], 2 film Sublingual Daily,x14 days,Instr:[id number] Li... Start Date: 11/06/22 Stop Date: 11/20/22 Status: Ordered SUMAtriptan 25 mg oral tablet 1 tablet = 25 mg, By Mouth, Daily, PRN as needed for migraine headache, may repeat dose after 2 hours up to a maximum of 2, # 6 tablet, 1 Refills, Maintenance, 03/02/20 19:47:00 EST, Tablet, [facility] #[id number], 162.56, cm, 01/04/20 9:40:00 ES... Start Date: 03/02/20 Status: Ordered zolpidem 5 mg oral tablet 0.5 tablet = 2.5 mg, By Mouth, Daily at bedtime, PRN as needed for sleep, Note decrease in dose., #14 tablet, 1 Refills, Maintenance, 09/10/22 17:51:00 EDT, [facility] #[id number], 09/10/22, 162.56, cm, 08/20/22 13:54:00 EDT, Height, 79.54, kg,... Start Date: 09/10/22 Status: Ordered Problem List Condition Confirmation Course Effective Dates Status H ealth Status Informant Abdominal bloating Confirmed Active Acne Confirmed Active HIV-AIDS-. ART hx in 01/19/18 note. 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 2genotype 02/02: [id number] is only mutation detected 3death of sister, caring for mother w/ dementia 4repeat screening colonoscopy in 2020 Social History Social History Type Response Smoking Status Former smoker, quit more than 30 days ago entered on: 12/05/21 Sex Patient Care team information Care Team Personnel Name: Kahlil Sun MD Position: [facility] Physician - Primary Care Member Role: PCP Address: Address: [address] [place] [place] [address] Name: Sharri Prince Position: [facility] PCO Associate Professional Member Role: [employer] Provider Care Team Related Persons Name: SHANITA MENDOZA Address: [address] [place] [address] Name: SHANITA MENDOZA [facility] Address: home [address] Name: ULICES PEARSON Name: ULICES ESPARZA Address: [place] [address] Name: LALA LI
--- OUTSIDE RECORDS SUMMARY | 2022-12-13 21:26 | XMS_ITS | Continuity of Care Document ---
Author Name Unknown Organization [facility] Address [address] [place] [address]- Care Team Providers Care General Manager Land Department Name Role Phone Kahlil Sun MD Primary Care Physician Encounter [facility] Date(s): 04/06/20 - 05/06/20 [facility] [address] [place] [address]- Allergies, Adverse Reactions, Alerts Substance Reaction Severity Status amitriptyline 1 Mental status Active aspirin 2 facial edema and sob Severe Active nevirapine Active Levaquin 3 Active Ziagen Active 1dreaming, near halliucinations 2facial edema and sob 3itchy, nervous Immunizations Given and Recorded Vaccine Date Status Refusal Reason Influenza Virus Vaccine (oldterm) 1 11/22/19 Recor ded Influenza Virus Vaccine (oldterm) 12/22/07 Given pneumococcal 23-valent vaccine 09/21/19 Given influenza virus vaccine, inactivated 2 12/17/18 Re corded influenza virus vaccine, inactivated 3 12/19/17 Re corded influenza virus vaccine, inactivated 12/09/15 Give n influenza virus vaccine, inactivated 12/04/14 Give n influenza virus vaccine, inactivated 12/14/13 Give n influenza virus vaccine, inactivated 12/15/12 Give n influenza virus vaccine, inactivated 4 11/18/11 Gi feliciano influenza virus vaccine, inactivated 11/20/09 Give n influenza virus vaccine, inactivated 5 01/30/04 Gi feliciano hepatitis B adult vaccine 08/23/18 Given hepatitis B adult vaccine 08/23/18 Given hepatitis B adult vaccine 6 08/29/01 Given hepatitis B adult vaccine 7 03/10/01 Given hepatitis B adult vaccine 8 10/28/00 Given Afluria (oldterm) 12/03/16 Given pneumococcal 13-valent vaccine 9 03/24/12 Given Adacel (Tdap) (oldterm) 05/16/09 Given Hepatitis B Vaccine (old term) 10 04/11/09 Given Hepatitis B Vaccine (old term) 11 12/22/07 Given Hepatitis B Vaccine (old term) 12/28/06 Given Hepatitis B Vaccine (old term) 12 09/27/01 Given Influenza Vaccine (oldterm) 13 12/27/08 Given Influenza Vaccine (oldterm) 14 12/28/06 Given Influenza Inactive (IM) (oldterm) 15 11/29/08 Give n diphtheria-tetanus toxoids (DT) 16 02/16/07 Given Hepatitis A Vaccine (oldterm) 12/28/06 Given Hepatitis A Vaccine (oldterm) 17 10/27/05 Given Pneumococcal Poly (PPV23) (oldterm) 11/10/06 Given Hepatitis A Adult Vaccine 18 04/14/05 Given tetanus-diphtheria toxoids (Td) 03/10/01 Given 1Result Comment: formerly [facility], [facility] 2Result Comment: pharmacy 3Location History: [facility] 4Admin Note: vis 08/31/11 5Admin Note: ADMIN.BY RN 6Admin Note: Admin. by RN 7Admin Note: Admin. by RN 8Admin Note: Admin. by RN 9Admin Note: vis 06/15/15 10Admin Note: dose #6 (3rd in 2nd series) 11Admin Note: dose #5 12Admin Note: #3 13Admin Note: LITO sanofi-pasteur 14Admin Note: ADMIN LILLIAN CONTRERAS 15Admin Note: BY LEXI Agudelo 16Admin Note: not Adacel 17Admin Note: #2 18Admin Note: Admin. by RN Medications 10,000 lux [...] tablet, 5 Refills, Maintenance, 01/26/20 16:20:00 EST, [facility], 162.56, cm, 10/09/19 10:36:00 EDT, Height, 72.3, kg, 09/26/18 16:01:00 EDT, Dry Weight Start Date: 01/26/20 Stop Date: 02/25/20 Status: Ordered albuterol 0.083% inhalation solution 3 mL = 2.5 mg, Inhalation, Every 6 hours, PRN Wheezing/Shortness of Breath, # 60 each, 0 Refills, Maintenance, 06/07/19 14:59:00 EDT, Solution, [facility] #[id number], 162.56, cm, 05/03/19 16:30:00 EST, Height, 72.3, kg, 09/26/18 16:01:00 EDT, Start Date: 06/07/19 Status: Ordered Biktarvy oral tablet 1 tablet, By Mouth, Daily, # 90 tablet, 3 Refills, Maintenance, 03/02/20 19:50:00 EST, [facility] #[id number], 1 tablet By Mouth Daily, 162.56, cm, 01/04/20 9:40:00 EST, Height, 72.3, kg, 09/26/18 16:01:00 EDT, Dry Weight Start Date: 03/02/20 Status: Ordered Blood Pressure Meter Blood Pressure Meter, See Instructions, # 1 each, Refills 0, Tot. Refills 0, Maintenance, Use for, 07/11/18 16:11:47 EDT, Compound Start Date: 07/11/18 Status: Ordered buprenorphine-naloxone 2 mg-0.5 mg sublingual film 1 film, Sublingual, Daily, [place] [id number] covering for [place] [id number], # 14 film, 0 Refills, Maintenance, 04/26/20 9:47:00 EST, [facility] #[id number], Partial fill on request., 1 film Sublingual Daily,Instr:Scavron [id number] covering for... Start Date: 04/26/20 Status: Ordered buprenorphine-naloxone 2 mg-0.5 mg sublingual film 0.25 each, Sublingual, Daily, [place] [id number], # 8 film, 0 Refills, Maintenance, 12/15/19 19:00:00 EDT, [facility] #[id number], Partial fill on request., 0.25 each Sublingual Daily,Instr:Dino [id number], 162.56, cm, 10/09/19 10:36:00 EDT, Hei... Start Date: 12/15/19 Status: Ordered cetirizine 10 mg oral tablet 1 tablet = 10 mg, By Mouth, Daily, For allergies., # 30 tablet, 2 Refills, Maintenance, 06/29/19 16:02:00 EDT, Tablet, [facility] #[id number], 162.56, cm, 05/03/19 16:30:00 EST, Height, 72.3, kg, 09/26/18 16:01:00 EDT, Dry Weight Start Date: 06/29/19 Status: Ordered cloNIDine 0.1 mg oral tablet 0.1 mg, 1, tablet, By Mouth, 3 times a day, as needed for anxiety, # 25 tablet, Refills 0, Tot. Refills 0, Maintenance, 10/10/19 21:36:00 EDT, Route to Pharmacy Electronically, [facility] #[id number], 162.56, cm, 10/09/19 10:36:00 EDT, Height, 72... [...] Gm, 5 Refills, Maintenance, 07/19/19 15:19:00 EDT, [place], [facility] #[id number], 2 sprays Nares, Both Daily in AM,x30 days, 162.56, cm, 05/03/19 16:30:00 EST, Height, 72.3, kg, 09/26/18 16:01:00 EDT, Dry... Start Date: 07/19/19 Stop Date: 01/15/20 Status: Ordered Flovent HFA 44 mcg/inh inhalation aerosol 1 puffs, Inhalation, 2 times a day, # 1 each, 5 Refills, Maintenance, 06/29/19 16:26:00 EDT, Aerosol, [facility] #[id number], 162.56, cm, 05/03/19 16:30:00 EST, Height, 72.3, kg, 09/26/18 16:01:00 EDT, Dry Weight Start Date: 06/29/19 Status: Ordered gabapentin 300 mg oral capsule See Instructions, 1 capsule By Mouth tonight then every 6 hrs x 1 day, every 8 hrs x 1 day, every 12 hrs x 1 day, and once on last day., # 11 capsule, Refills 0, Tot. Refills 0, Maintenance, 02/08/2016:44:00 EST, Instructions Replace Required Details... Start Date: 02/08/20 Status: Ordered Home Blood Pressure Monitor See Instructions, # 1 each, Maintenance, covering for [facility] Blood pressure monitor neededto monitor blood pressure [...] 3 Refills, Maintenance, 03/02/20 19:48:00 EST, Tablet, [facility] #[id number], 30 day supply preferred for present, 162.56, [...] 05/12/18 14:45:33 EDT, Route to Pharmacy Electronically, [id number], [facility] Start Date: 05/12/18 Status: Ordered LORazepam 0.5 mg oral tablet 0.5 tablet = 0.25 mg, By Mouth, 2 times a day, PRN as needed for anxiety, # 20 tablet, 1 Refills, Maintenance, 05/16/19 23:11:00 EDT, Tablet, [facility] #[id number], 162.56, cm, 05/03/19 16:30:00 EST, Height, 72.3, kg, 09/26/18 16:01:00 EDT, Dry... Start Date: 05/16/19 Status: Ordered losartan 100 mg oral tablet 1 tablet = 100 mg, By Mouth, Daily, # 30 tablet, 11 Refills, Maintenance, 06/29/19 15:59:00 EDT, Tablet, [facility] #[id number], 162.56, cm, 05/03/19 16:30:00 EST, Height, 72.3, kg, 09/26/18 16:01:00 EDT, Dry Weight Start Date: 06/29/19 Status: Ordered meclizine 25 mg oral tablet 1 tablet = 25 mg, By Mouth, 2 times a day, # 30 tablet, 1 Refills, Maintenance, 03/30/19 15:49:00 EST, Tablet, [facility] #[id number], 162.56, cm, 03/08/19 14:34:00 EST, Height, 72.3, kg, 09/26/18 16:01:00 EDT, Dry Weight Start Date: 03/30/19 Status: Ordered pantoprazole 20 mg oral delayed release tablet 1 tablet = 20 mg, By Mouth, Daily in AM, take 30 minutes before first meal, # 30 tablet, 5 Refills,Maintenance, 02/13/20 10:17:00 EST, CR Tablet, 162.56, cm, 01/04/20 9:40:00 EST, Height, 72.3, kg, 09/26/18 16:01:00 EDT, Dry Weight Start Date: 02/13/20 Status: Ordered ProAir HFA 90 mcg/inh inhalation aerosol with adapter 2, puffs, Inhalation, Every 4 hours, PRN, use with spacer chamber, # 1 each, Refills 0, Tot. Refills 0, Maintenance, 06/07/19 15:00:00 EDT, Aerosol, Route to Pharmacy Electronically, [id number], [facility] #[id number], 1... Start Date: 06/07/19 Status: Ordered Senna 8.6 mg oral tablet 1-3 tablet, By Mouth, Daily, for constipation, # 90 tablet, Refills 5, Tot. Refills 5, Maintenance,03/26/20 15:25:00 EST, Route to Pharmacy Electronically, [facility] #[id number] Tablet, 162.56, cm, 03/21/20 15:01:00 EST, Height, 77, kg, 2... Start Date: 03/26/20 Status: Ordered Spacer for inhalers Spacer for inhalers, See Instructions, # 1 each, Refills 0, Tot. Refills 0, Maintenance, Use with inhalers as directed. Vincentian., 06/07/19 15:07:00 EDT, Compound, 162.56, cm, 05/03/19 16:30:00 EST, Height, 72.3, kg, 09/26/18 16:01:00 EDT, Dry Weight Start Date: 06/07/19 Status: Ordered SUMAtriptan 25 mg oral tablet 1 tablet = 25 mg, By Mouth, Daily, PRN as needed for migraine headache, may repeat dose after 2 hours up to a maximum of 2, # 6 tablet, 1 Refills, Maintenance, 03/02/20 19:47:00 EST, Tablet, [facility] #[id number], 162.56, cm, 01/04/20 9:40:00 ES... Start Date: 03/02/20 Status: Ordered Zofran 4 mg oral tablet 1 tablet = 4 mg, By Mouth, 2 times a day, PRN Nausea & Vomiting, # 10 tablet, 0 Refills, Maintenance, 05/04/20 17:09:00 EST, Tablet, [facility] #[id number], 162.56, cm, 05/03/20 9:23:00 EST,Height, 77, kg, 03/21/20 15:04:00 EST, Dry Weight Start Date: 05/04/20 Status: Ordered zolpidem 5 mg oral tablet 0 Refills, Maintenance, 01/22/18 21:33:47 EST Start Date: 01/22/18 Status: Ordered Problem List Condition Effective Dates Status Health Status Inform ant Abdominal bloating(Confirmed) Active Acne(Confirmed) Active AIDS (acquired immunodeficie ncy syndrome). ART hx in 01/19/18 note.(Confirmed) 1, 2 1994 Active Ascites(Confirmed) Active Asthma(Confirmed) Active Breast lump in upper inner quadrant(Confirmed) Active Cervicovaginal cytology: Low grade squamous intraepithelial lesion(Confirmed) Active Lumbosacral pain, chronic(Confirmed) Active Cirrhosis of liver, hx of he patitis C treated 2013(Confirmed) Active Straining with stools(Confirmed) Active Gastropathy(Confirmed) Active Acid reflux(Confirmed) Active H/O heartburn(Confirmed) Active H/O nausea(Confirmed) Active Hypertension(Confirmed) Active Insomnia(Confirmed) 2016 Active Migraine(Confirmed) Active Opioid dependence(Confirmed) Active *[id number] Care Partn April Saavedra(Confirmed) Active Health care maintenance(Confirmed) Active Routine screening for STI (s exually transmitted infection)(Confirmed) Active Portal hypertensive gastropathy(Confirmed) 11/30/11 Active Psychological [...] tolerance, and QD need over. 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
--- OUTSIDE RECORDS SUMMARY | 2022-12-13 21:26 | XMS_ITS | Continuity of Care Document ---
Author Name Unknown Organization [facility] Address [address] [place] [address]- Care Team Providers Care Tubular Riveter Name Role Phone Kahlil Sun MD Primary Care Physician [phone] Encounter [facility] Date(s): 05/29/20 - 06/28/20 [facility] [address] [place] [address]- Allergies, Adverse Reactions, Alerts Substance Reaction Severity [...] toxoids (Td) 03/10/01 Given 1Result Comment: #2, [facility] 2Result Comment: [facility] 4Result Comment: pharmacy 5Location History: [place] 6Admin Note: vis 08/31/11 7Admin Note: ADMIN.BY RN 8Admin Note: Admin. by RN 9Admin Note: Admin. by RN 10Admin Note: Admin. by RN 11Admin Note: vis 06/15/15 12Admin Note: dose #6 (3rd in 2nd series) 13Admin Note: dose #5 14Admin Note: #3 15Admin Note: LITO sanofi-pasteur 16Admin Note: ADMIN BEN, PULL THROUGH HOOKER 17Admin Note: BY LEXI Agudelo 18Admin Note: not Adacel 19Admin Note: #2 20Admin Note: Admin. by RN Medications 10,000 lux [...] tablet, 5 Refills, Maintenance, 01/26/20 16:20:00 EST, [facility], 162.56, cm, 10/09/19 10:36:00 EDT, Height, 72.3, kg, 09/26/18 16:01:00 EDT, Dry Weight Start Date: 01/26/20 Stop Date: 02/25/20 Status: Ordered albuterol 0.083% inhalation solution 3 mL = 2.5 mg, Inhalation, Every 6 hours, PRN Wheezing/Shortness of Breath, # 60 each, 0 Refills, Maintenance, 06/07/20 12:51:00 EDT, Solution, [facility] #[id number], 162.56, cm, 05/23/20 14:31:00 EDT, Height, 77, [...] tablet, 3 Refills, Maintenance, 03/02/20 19:50:00 EST, [facility] #[id number], 1 tablet By Mouth Daily, 162.56, cm, 01/04/20 9:40:00 EST, Height, 72.3, kg, 09/26/18 16:01:00 EDT, Dry Weight Start Date: 03/02/20 Status: Ordered Blood Pressure Meter Blood Pressure Meter, See Instructions, # 1 each, Refills 0, Tot. Refills 0, Maintenance, Use for, 07/11/18 16:11:47 EDT, Compound Start Date: 07/11/18 Status: Ordered buprenorphine-naloxone 2 mg-0.5 mg sublingual film 1 film, Sublingual, Daily, [place] [id number], # 14 film, 0 Refills, Maintenance, 06/17/20 16:56:00 EDT, [facility] #[id number], Partial fill on request., 1 film Sublingual Daily,Instr:Powell [id number], 163, cm, 06/08/20 17:25:00 EDT, Height, 82.... Start Date: 06/17/20 Status: Ordered buprenorphine-naloxone 2 mg-0.5 mg sublingual film 0.25 each, Sublingual, Daily, Dino [id number], # 8 film, 0 Refills, Maintenance, 12/15/19 19:00:00 EDT, [facility] #[id number], Partial fill on request., 0.25 each Sublingual Daily,Instr:Dino [id number], 162.56, cm, 10/09/19 10:36:00 EDT, Hei... Start Date: 12/15/19 Status: Ordered cetirizine 10 mg oral tablet 1 tablet = 10 mg, By Mouth, Daily, For allergies., # 30 tablet, 2 Refills, Maintenance, 06/29/19 16:02:00 EDT, Tablet, [facility] #[id number], 162.56, cm, 05/03/19 16:30:00 EST, Height, 72.3, kg, 09/26/18 16:01:00 EDT, Dry Weight Start Date: 06/29/19 Status: Ordered cloNIDine 0.1 mg oral tablet 0.1 mg, 1, tablet, By Mouth, 3 times a day, as needed for anxiety, # 25 tablet, Refills 0, Tot. Refills 0, Maintenance, 10/10/19 21:36:00 EDT, Route to Pharmacy Electronically, [facility] #[id number], 162.56, cm, 10/09/19 10:36:00 EDT, Height, 72... [...] Gm, 5 Refills, Maintenance, 07/19/19 15:19:00 EDT, [place], [facility] #[id number], 2 sprays Nares, Both Daily in AM,x30 days, 162.56, cm, 05/03/19 16:30:00 EST, Height, 72.3, kg, 09/26/18 16:01:00 EDT, Dry... Start Date: 07/19/19 Stop Date: 01/15/20 Status: Ordered Flovent HFA 44 mcg/inh inhalation aerosol 1 puffs, Inhalation, 2 times a day, # 1 each, 5 Refills, Maintenance, 06/07/20 12:52:00 EDT, Aerosol, [facility] #[id number], 162.56, cm, 05/23/20 14:31:00 EDT, Height, 77, [...] Stop Date: 12/09/20 Status: Ordered Freestyle Lite Lancets See Instructions, for 30 days, # 50 each, Refills 2, Tot. Refills 2, Hard Stop 09/10/20 17:56:00 EDT, every 30 min for 4 hours after selected meals . Dx: E16.1 - hypoglycemia, R73.9 - Hyperglycemia, 06/12/20 17:56:00 EDT, Compound, 163, cm, 06/08/20 1... Start Date: 06/12/20 Stop Date: 09/10/20 Status: Ordered Freestyle Lite Monitor See Instructions, [...] Instructions, # 1 each, Maintenance, covering for Sharri Pioggia Blood pressure monitor neededto monitor blood [...] 3 Refills, Maintenance, 03/02/20 19:48:00 EST, Tablet, [facility] #[id number], 30 day supply preferred for present, 162.56, [...] 05/12/18 14:45:33 EDT, Route to Pharmacy Electronically, [id number], [facility] Start Date: 05/12/18 Status: Ordered LORazepam 0.5 mg oral tablet 0.5 tablet = 0.25 mg, By Mouth, 2 times a day, PRN as needed for anxiety, # 20 tablet, 1 Refills, Maintenance, 05/16/19 23:11:00 EDT, Tablet, [facility] #[id number], 162.56, cm, 05/03/19 16:30:00 EST, Height, 72.3, kg, 09/26/18 16:01:00 EDT, Dry... Start Date: 05/16/19 Status: Ordered losartan 100 mg oral tablet 1 tablet = 100 mg, By Mouth, Daily, # 30 tablet, 2 Refills, Maintenance, 06/26/20 8:47:00 EDT, Tablet, [facility] #[id number], 162, cm, 06/19/20 8:04:00 EDT, Height, 82.1, kg, 06/08/20 17:25:00 EDT, Dry Weight Start Date: 06/26/20 Status: Ordered meclizine 25 mg oral tablet 1 tablet = 25 mg, By Mouth, 2 times a day, # 30 tablet, 1 Refills, Maintenance, 03/30/19 15:49:00 EST, Tablet, [facility] #[id number], 162.56, cm, 03/08/19 14:34:00 EST, Height, 72.3, [...] Dry Weight Start Date: 02/13/20 Status: Ordered PEG-3350 with Electrolytes (Eqv-GoLYTELY) oral powder for reconstitution See Instructions, used as directed, # 1 each, 0 Refills, Maintenance, 06/04/20 16:46:00 EDT, [facility] #[id number], OK to sub for any gallon prep, [...] 12:51:00 EDT, Aerosol, Route to Pharmacy Electronically, [id number], [facility] #[id number], 1... Start Date: 06/07/20 Status: Ordered Senna 8.6 mg oral tablet 1-3 tablet, By Mouth, Daily, for constipation, # 90 tablet, Refills 5, Tot. Refills 5, Maintenance,03/26/20 15:25:00 EST, Route to Pharmacy Electronically, [facility] #[id number] Tablet, 162.56, cm, 03/21/20 15:01:00 EST, Height, 77, kg, ... Start Date: 03/26/20 Status: Ordered Spacer for inhalers Spacer for inhalers, See Instructions, # 1 each, Refills 0, Tot. Refills 0, Maintenance, Use with inhalers as directed. Icelandic., 06/07/19 15:07:00 EDT, Compound, 162.56, cm, 05/03/19 16:30:00 EST, Height, 72.3, kg, 09/26/18 16:01:00 EDT, Dry Weight Start Date: 06/07/19 Status: Ordered SUMAtriptan 25 mg oral tablet 1 tablet = 25 mg, By Mouth, Daily, PRN as needed for migraine headache, may repeat dose after 2 hours up to a maximum of 2, # 6 tablet, 1 Refills, Maintenance, 03/02/20 19:47:00 EST, Tablet, [facility] #[id number], 162.56, cm, 01/04/20 9:40:00 ES... Start Date: 03/02/20 Status: Ordered Zofran 4 mg oral tablet 1 tablet = 4 mg, By Mouth, 2 times a day, PRN Nausea & Vomiting, # 10 tablet, 0 Refills, Maintenance, 05/04/20 17:09:00 EST, Tablet, [facility] #[id number], 162.56, cm, 05/03/20 9:23:00 EST,Height, 77, kg, [...] 2016 Active Migraine(Confirmed) Active Opioid dependence(Confirmed) Active *[id number] Care Partn April Saavedra(Confirmed) Active Health care [...] tolerance, and QD need over. 2genotype 02/02: [id number] is only mutation detected 3death of sister, caring for mother w/ dementia 4repeat screening colonoscopy in 2020 Social History Social History Type Response Smoking Status Former smoker, quit more than 30 days ago entered on: 05/24/18 Sex
--- OUTSIDE RECORDS SUMMARY | 2022-12-13 21:27 | XMS_ITS | Continuity of Care Document ---
Author Name Unknown Organization [facility] Address [address] [place] [address]- Care Team Providers Care Cardiac Technologist Name Role Phone Kahlil Sun MD Primary Care Physician Encounter [facility] Date(s): 08/28/20 - 09/27/20 [facility] [address] [place] [address]- Allergies, Adverse Reactions, Alerts Substance Reaction Severity [...] Give n influenza virus vaccine, inactivated 7 12/1/04 Gi feliciano hepatitis B adult vaccine 08/23/18 [...] toxoids (Td) 03/10/01 Given 1Result Comment: #2, [facility] 2Result Comment: [facility] 3Result Comment: [facility] 4Result Comment: pharmacy 5Location History: [facility] 6Admin Note: vis 08/31/11 7Admin Note: ADMIN.BY RN 8Admin Note: Admin. by RN 9Admin Note: Admin. by RN 10Admin Note: Admin. by RN 11Admin Note: vis 06/15/15 12Admin Note: dose #6 (3rd in 2nd series) 13Admin Note: dose #5 14Admin Note: #3 15Admin Note: LITO [employer] 16Admin Note: ADMIN LILLIAN CONTRERAS 17Admin Note: BY LEXI Agudelo 18Admin Note: [...] 1 Refills, Maintenance, 09/12/20 16:18:00EDT, CR Tablet, [facility] #[id number], Partial fill upon patient request if the prescription is for a schedule II opioid drug., 162, cm, 09/12/20... Start Date: 09/12/20 Status: Ordered acyclovir 400 mg oral tablet 1 tablet = 400 mg, By Mouth, 2 times a day, # 10 tablet, 5 Refills, Maintenance, 01/26/20 16:20:00 EST, [facility], 162.56, cm, 10/09/19 10:36:00 EDT, Height, 72.3, kg, 09/26/18 16:01:00 EDT, Dry Weight Start Date: 01/26/20 Stop Date: 02/25/20 Status: Ordered albuterol 0.083% inhalation solution 3 mL = 2.5 mg, Inhalation, Every 6 hours, PRN Wheezing/Shortness of Breath, # 60 each, 0 Refills, Maintenance, 06/07/20 12:51:00 EDT, Solution, [facility] #[id number], 162.56, cm, 05/23/20 14:31:00 EDT, Height, 77, [...] tablet, 3 Refills, Maintenance, 03/02/20 19:50:00 EST, [facility] #[id number], 1 tablet By Mouth Daily, 162.56, cm, 01/04/20 9:40:00 EST, Height, 72.3, kg, 09/26/18 16:01:00 EDT, Dry Weight Start Date: 03/02/20 Status: Ordered Blood Pressure Meter Blood Pressure Meter, See Instructions, # 1 each, Refills 0, Tot. Refills 0, Maintenance, Use for, 07/11/18 16:11:47 EDT, Compound Start Date: 07/11/18 Status: Ordered buprenorphine-naloxone 2 mg-0.5 mg sublingual film 0.25 each, Sublingual, Daily, Dino [id number], # 8 film, 0 Refills, Maintenance, 12/15/19 19:00:00 EDT, [facility] #[id number], Partial fill on request., 0.25 each Sublingual Daily,Instr:Dino [id number], 162.56, cm, 10/09/19 10:36:00 EDT, Hei... Start Date: 12/15/19 Status: Ordered buprenorphine-naloxone 8 mg-2 mg sublingual film 1 film, Sublingual, Daily, dissolve under the tongue, # 7 film, 0 Refills, Maintenance, 09/12/20 15:38:00 EDT, Film, [facility] #[id number], Partial fill upon patient request if the prescriptionis for a schedule II opioid drug., 1 film Sublingua... Start Date: 09/12/20 Stop Date: 09/19/20 Status: Ordered cetirizine 10 mg oral tablet 1 tablet = 10 mg, By Mouth, Daily, For allergies., # 30 tablet, 2 Refills, Maintenance, 06/29/19 16:02:00 EDT, Tablet, [facility] #[id number], 162.56, cm, 05/03/19 16:30:00 EST, Height, 72.3, kg, 09/26/18 16:01:00 EDT, Dry Weight Start Date: 06/29/19 Status: Ordered cloNIDine 0.1 mg oral tablet 0.1 mg, 1, tablet, By Mouth, 3 times a day, as needed for anxiety, # 25 tablet, Refills 0, Tot. Refills 0, Maintenance, 10/10/19 21:36:00 EDT, Route to Pharmacy Electronically, [facility] #[id number], 162.56, cm, 10/09/19 10:36:00 EDT, Height, 72... [...] Gm, 5 Refills, Maintenance, 07/19/19 15:19:00 EDT, [place], [facility] #[id number], 2 sprays Nares, Both Daily in AM,x30 days, 162.56, cm, 05/03/19 16:30:00 EST, Height, 72.3, kg, 09/26/18 16:01:00 EDT, Dry... Start Date: 07/19/19 Stop Date: 01/15/20 Status: Ordered Flovent HFA 44 mcg/inh inhalation aerosol 1 puffs, Inhalation, 2 times a day, # 1 each, 5 Refills, Maintenance, 06/07/20 12:52:00 EDT, Aerosol, [facility] #[id number], 162.56, cm, 05/23/20 14:31:00 EDT, Height, 77, [...] Instructions, # 1 each, Maintenance, covering for [facility] Blood pressure monitor neededto monitor [...] 3 Refills, Maintenance, 03/02/20 19:48:00 EST, Tablet, [facility] #[id number], 30 day supply preferred for present, 162.56, [...] 05/12/18 14:45:33 EDT, Route to Pharmacy Electronically, [id number], [facility] Start Date: 05/12/18 Status: Ordered LORazepam 0.5 mg oral tablet 0.5 tablet = 0.25 mg, By Mouth, 2 times a day, PRN as needed for anxiety, # 20 tablet, 1 Refills, Maintenance, 05/16/19 23:11:00 EDT, Tablet, [facility] #[id number], 162.56, cm, 05/03/19 16:30:00 EST, Height, 72.3, kg, 09/26/18 16:01:00 EDT, Dry... Start Date: 05/16/19 Status: Ordered losartan 100 mg oral tablet 1 tablet, By Mouth, Daily, # 30 tablet, 5 Refills, Maintenance, 09/24/20 16:00:00 EDT, [facility] #[id number], 162, cm, 09/19/20 15:59:00 EDT, Height, 82.1, kg, 06/08/20 17:25:00 EDT, Dry Weight Start Date: 09/24/20 Status: Ordered meclizine 25 mg oral tablet 1 tablet = 25 mg, By Mouth, 2 times a day, # 30 tablet, 1 Refills, Maintenance, 03/30/19 15:49:00 EST, Tablet, [facility] #[id number], 162.56, cm, 03/08/19 14:34:00 EST, Height, 72.3, [...] each, 0 Refills, Maintenance, 06/04/20 16:46:00 EDT, [facility] #[id number], OK to sub for any gallon prep, [...] 12:51:00 EDT, Aerosol, Route to Pharmacy Electronically, [id number], [facility] #[id number], 1... Start Date: 06/07/20 Status: Ordered Senna 8.6 mg oral tablet 1-3 tablet, By Mouth, Daily, for constipation, # 90 tablet, Refills 5, Tot. Refills 5, Maintenance,03/26/20 15:25:00 EST, Route to Pharmacy Electronically, [facility] #[id number] Tablet, 162.56, cm, 03/21/20 15:01:00 EST, Height, 77, kg, ... Start Date: 03/26/20 Status: Ordered Spacer for inhalers Spacer for inhalers, See Instructions, # 1 each, Refills 0, Tot. Refills 0, Maintenance, Use with inhalers as directed. Serbian., 06/07/19 15:07:00 EDT, Compound, 162.56, cm, 05/03/19 16:30:00 EST, Height, 72.3, kg, 09/26/18 16:01:00 EDT, Dry Weight Start Date: 06/07/19 Status: Ordered Sublocade 100 mg/0.5 mL subcutaneous solution, extended release = 100 mg, Subcutaneous Infusion, Every 28 days, [facility], # 1 each, 0 Refills, Maintenance, 09/12/20 15:57:00 EDT, Partial fill upon patient request if the prescription is for a schedule II opioid drug., 162, cm, 09/12/20 14:2... Start Date: 09/12/20 Status: Ordered SUMAtriptan 25 mg oral tablet 1 tablet = 25 mg, By Mouth, Daily, PRN as needed for migraine headache, may repeat dose after 2 hours up to a maximum of 2, # 6 tablet, 1 Refills, Maintenance, 03/02/20 19:47:00 EST, Tablet, [facility] #[id number], 162.56, cm, 01/04/20 9:40:00 ES... Start Date: 03/02/20 Status: Ordered Zofran 4 mg oral tablet 1 tablet = 4 mg, By Mouth, 2 times a day, PRN Nausea & Vomiting, # 10 tablet, 0 Refills, Maintenance, 09/19/20 18:37:00 EDT, Tablet, [facility] #[id number], 162, cm, 09/19/20 15:59:00 EDT, Height, 82.1, [...] 2016 Active Migraine(Confirmed) Active Opioid dependence(Confirmed) Active *[id number] Care Partn April Saavedra(Confirmed) Active Health care [...] tolerance, and QD need over. 2genotype 02/02: [id number] is only mutation detected 3death of sister, caring for mother w/ dementia 4repeat screening colonoscopy in 2020 Social History Social History Type Response Smoking Status Former smoker, quit more than 30 days ago entered on: 05/24/18 Sex
--- OUTSIDE RECORDS SUMMARY | 2022-12-13 21:27 | XMS_ITS | Continuity of Care Document ---
Author Name Unknown Organization [facility] Address [address] [place] [address]- Care Team Providers Care Sew Out Operator Name Role Phone Kahlil Sun MD Primary Care Physician [phone] [place] [facility] [place] [facility] [address] [place] [address]- Allergies, Adverse Reactions, Alerts Substance Reaction Severity Status nevirapine Active Ziagen Active amitriptyline 1 Mental status Active aspirin 2 facial edema and sob Severe Active Levaquin 3 Active 1dreaming, near halliucinations [...] events reported or observed. 2Result Comment: #2, [facility] 3Result Comment: [facility] 4Result Comment: pharmacy 5Location History: [facility] 6Admin Note: vis 08/31/11 7Admin Note: ADMIN.BY RN 8Result Comment: [facility] 9Admin Note: Admin. by RN 10Admin Note: Admin. by RN 11Admin Note: Admin. by RN 12Admin Note: vis 06/15/15 13Admin Note: dose #6 (3rd in 2nd [...] tablet, 5 Refills, Maintenance, 01/08/21 18:41:00 EST, [facility] #[id number], 162, cm, 12/17/20 23:19:00 EDT, Height, 86.3, kg, 09/29/20 15:30:00 EDT, Dry Weight Start Date: 01/08/21 Stop Date: 02/07/21 Status: Ordered Albuterol (Eqv-ProAir HFA) 90 mcg/inh inhalation aerosol 2 puffs, Inhalation, Every 4 hours, PRN NEEDED FOR WHEEZING/SHORTNESS OF BREATH, USE WITH SPACERCHAMBER, # 8.5 Gm, 5 Refills, [facility] #[id number], 16, INHALE 2 PUFFS INTO LUNGS EVERY 4 HOURS NEEDED FOR WHEEZING/SHORTNESS OF BREATH. USE... Start Date: 11/13/20 Status: Ordered albuterol 0.083% inhalation solution 3 mL = 2.5 mg, Inhalation, Every 6 hours, PRN Wheezing/Shortness of Breath, # 60 each, 0 Refills, Maintenance, 06/07/20 12:51:00 EDT, Solution, [facility] #[id number], 162.56, cm, 05/23/20 14:31:00 EDT, Height, 77, [...] 2 Refills, Maintenance, 08/30/22 11:09:00 EDT, Gel, [facility] #[id number], 1 applic... Start Date: 08/30/22 Status: Ordered benzoyl peroxide 2.5% topical gel 1 application, Topically, 2 times a day, keep away from eyes and mucous membranes. clean affected area before application. Start daily and increase to twice a day if tolerated., # 60 Gm, 3 Refills, Maintenance, 09/08/22 22:51:00 EDT, [facility]... Start Date: 09/08/22 Status: Ordered Biktarvy oral tablet 1 tablet, By Mouth, Daily, # 30 tablet, 12 Refills, Maintenance, 04/17/22 7:54:00 EST, [facility] #[id number], 1 tablet By Mouth Daily, 162.56, cm, 04/16/22 16:00:00 EST, Height, 87.6, kg, 10/24/21 8:00:00 EDT, Dry Weight Start Date: 04/17/22 Status: Ordered Biktarvy oral tablet See Instructions, TAKE 1 TABLET BY MOUTH DAILY, # 90 tablet, 0 Refills, Maintenance, 07/15/22 13:50:00 EDT, [facility] #[id number], 90, TAKE 1 TABLET BY MOUTH DAILY, [...] 1 Refills, Maintenance, 07/10/21 18:35:00 EDT, Tablet, [facility] #[id number], Partial fill upon patient request if the [...] 08/12/22 15:06:00 EDT, Route to Pharmacy Electronically, [facility] #[id number], 162.56, cm, 07/30/22 10:55:00 EDT, Height, 79.... Start Date: 08/12/22 Status: Ordered Colace Clear 50 mg oral capsule 1 capsule = 50 mg, By Mouth, 2 times a day, PRN as needed for constipation, # 60 capsule, 0 Refills, Maintenance, 12/05/21 15:09:00 EDT, [facility] #[id number], Partial fill upon patient requestif the prescription is for a schedule II opioid nhi... Start Date: 12/05/21 Status: Ordered diclofenac 1% topical gel = 2 Gm, Topically, 4 times a day, PRN for pain, not to exceed: 10 gm/day, # 100 Gm, 1 Refills, Maintenance, 05/29/21 16:52:00 EDT, Gel, [facility], Partial fill upon patient request if the prescription is for a schedule II opioid... Start Date: 05/29/21 Status: Ordered Dulera 200 mcg-5 mcg/inh inhalation aerosol 2 puffs, Inhalation, 2 times a day, # 1 each, 3 Refills, Maintenance, 01/28/21 16:44:00 EST, Aerosol, [facility], STOP FLOVENT, 2 puffs Inhalation 2 times a day,x30 days, 162, cm,01/28/21 16:02:00 EST, Height, 86.3, kg, 09/29/20 1... Start Date: 01/28/21 Stop Date: 05/28/21 Status: Ordered escitalopram 20 mg oral tablet 1 tablet = 20 mg, By Mouth, Daily, # 90 tablet, 0 Refills, Maintenance, 07/30/22 12:03:00 EDT, Tablet, [facility] #[id number], Partial fill upon patient request if the prescription is for a schedule II opioid drug., 162.56, cm, 07/30/22 10:55:00... Start Date: 07/30/22 Status: Ordered ferrous fumarate 324 mg oral tablet 1 tablet = 324 mg, By Mouth, Every other day, # 45 tablet, 0 Refills, Maintenance, 07/31/22 11:19:00 EDT, Tablet, [facility] #[id number], Partial fill upon patient request if the [...] Gm, 5 Refills, Maintenance, 07/19/19 15:19:00 EDT, [place], [facility] #96068, 2 sprays Nares, Both Daily in AM,x30 [...] 163,... Start Date: 06/17/20 Status: Ordered furosemide 20 mg oral tablet 20 mg, 1, tablet, By Mouth, Daily, # 30 tablet, Refills 5, Tot. Refills 5, Maintenance, 08/30/22 13:09:00 EDT, Route to Pharmacy Electronically, [facility] #[id number], 162.56, cm, 08/20/22 13:54:00 EDT, Height, 79.54, kg, 07/30/22 10:55:00 EDT,... Start Date: 08/30/22 Status: Ordered Glucose Monitor See Instructions, PRN, [...] Instructions, # 1 each, Maintenance, covering for [facility] Blood pressure monitor neededto monitor blood [...] 2 Refills, Maintenance, 07/30/22 12:17:00 EDT, Syrup, [facility] #13735, 30 mL By Mouth 4 times a day, 162.56, cm, 07/30/22 10:55:00 EDT,Height, 79.54, kg, 07/30/22 10:55:00 EDT, Dry Weight Start Date: 07/30/22 Status: Ordered losartan 100 mg oral tablet 1 tablet, By Mouth, Daily, # 30 tablet, 5 Refills, [facility] #87763, 162, cm, 10/09/21 16:19:00 EDT, Height, 86.3, kg, 09/29/20 15:30:00 EDT, Dry Weight Start Date: 10/20/21 Status: Ordered meclizine 25 mg oral tablet 1 tablet = 25 mg, By Mouth, 2 times a day, # 30 tablet, 1 Refills, Maintenance, 07/10/21 17:25:00 EDT, Tablet, [facility] #[id number], 162, cm, 06/19/21 15:40:00 EDT, Height, 86.3, kg, 09/29/20 15:30:00 EDT, Dry Weight Start Date: 07/10/21 Status: Ordered multivitamin with iron Multiple Vitamins with Iron oral tablet 1 tablet, By Mouth, Daily, # 30 tablet, 11 Refills, Maintenance, 04/17/22 7:51:00 EST, Tablet, [facility] #[id number], 1 tablet By Mouth Daily, 162.56, cm, 04/16/22 16:00:00 EST, Height, 87.6, kg, 10/24/21 8:00:00 EDT, Dry Weight Start Date: 04/17/22 Status: Ordered Narcan 4 mg/0.1 mL nasal spray = 4 mg, Inhalation, Once, # 2 each, 1 Refills, Soft Stop, 10/29/20 12:23:00 EDT, [facility] #[id number], Partial fill upon patient request if the prescription is for a schedule II opioid drug., 162, cm, 09/29/20 15:30:00 EDT, Height, 86.3, kg, 08... Start Date: 10/29/20 Status: Ordered ondansetron 4 mg oral tablet 1 tablet = 4 mg, By Mouth, Daily, PRN Nausea & Vomiting, # 10 tablet, 3 Refills, Maintenance, 06/25/22 17:28:00 EDT, [facility] #[id number], 162.56, cm, 06/25/22 16:16:00 EDT, Height, 87.6, [...] 2 Refills, Maintenance, 08/21/22 17:50:00 EDT, Tablet, [facility] #74529, this is correct dose. 200mg Rx just sent by mistake., 162.56, cm, 08/20/22 13:54:00 EDT, Height, 79.54, kg, 06... Start Date: 08/21/22 Status: Ordered Senna 8.6 mg oral tablet 1-3 tablet, By Mouth, Daily, for constipation, # 90 tablet, Refills 5, Tot. Refills 5, Maintenance,03/26/20 15:25:00 EST, Route to Pharmacy Electronically, [facility] #[id number] Tablet, 162.56, cm, 03/21/20 15:01:00 EST, Height, 77, kg, ... Start Date: 03/26/20 Status: Ordered Spacer for inhalers Spacer for inhalers, See Instructions, # 1 each, Refills 0, Tot. Refills 0, Maintenance, Dx: asthma. Use with inhalers as directed., 01/08/21 19:38:00 EST, Compound, 162, cm, 12/17/20 23:19:00 EDT, Height, 86.3, kg, 09/29/20 15:30:00 EDT, Dry Weight Start Date: 01/08/21 Status: Ordered spironolactone 50 mg oral tablet 1 tablet, By Mouth, Daily, # 30 tablet, 5 Refills, Maintenance, 04/17/22 7:53:00 EST, [facility] #[id number], 162.56, cm, 04/16/22 16:00:00 EST, Height, 87.6, kg, 10/24/21 8:00:00 EDT, Dry Weight Start Date: 04/17/22 Status: Ordered Suboxone 8 mg-2 mg Sublingual Film 2 film, Sublingual, Daily, [id number] [place] dissolve under the tongue may fill less due 09/24/2022,# 14 film, 0 Refills, Maintenance, 09/17/22 17:55:00 EDT, Film, [facility], 2 film Sublingual Daily,x7 days,Instr:[id number] Cathy... Start Date: 09/17/22 Stop Date: 09/24/22 Status: Ordered SUMAtriptan 25 mg oral tablet 1 tablet = 25 mg, By Mouth, Daily, PRN as needed for migraine headache, may repeat dose after 2 hours up to a maximum of 2, # 6 tablet, 1 Refills, Maintenance, 03/02/20 19:47:00 EST, Tablet, [facility] #[id number], 162.56, cm, 01/04/20 9:40:00 ES... Start Date: 03/02/20 Status: Ordered zolpidem 5 mg oral tablet 0.5 tablet = 2.5 mg, By Mouth, Daily at bedtime, PRN as needed for sleep, Note decrease in dose., #14 tablet, 1 Refills, Maintenance, 09/10/22 17:51:00 EDT, [facility] #[id number], 09/10/22, 162.56, cm, 08/20/22 13:54:00 EDT, Height, [...] use disorder Confirmed Active Pancytopenia Confirmed Active *[phone] Plastic Technician April Saavedra Confirmed Active Portal hypertensive gastropathy Confirmed 11/30/11 Active Psychological stress 3 Confirmed Active Alcohol use disorder, severe, in early remission, dependence Confirmed Active TMJ - click Confirmed Active Tubular adenoma of colon 4 Confirmed 03/30/17 Active Varicose veins of both lower extremities Confirmed Active Vitamin D deficiency Confirmed 2010 Active 1CBV + NFV on/off/on-suppressed, switch 04/08 to Truvada + ATV 500mg for QD adherence, switch 03/10 toTruvada + raltegravir for upperGI tolerance, and QD need over. 2genotype 02/02: [id number] is only mutation detected 3death of sister, caring for mother w/ dementia 4repeat screening colonoscopy in 2020 Social History Social History Type Response Smoking Status Former smoker, quit more than 30 days ago entered on: 12/05/21 Sex Patient Care team information Care Team Personnel Name: Kahlil Sun MD Position: [facility] Physician - Primary Care Member Role: PCP Address: Address: [address] [place] [address] Name: Sharri Prince Position: [facility] PCO Associate Professional Member Role: Lifetime Consulting Provider Care Team Related Persons Name: SHANITA MENDOZA Address: home [address] [place] [address] Name: SHANITA MENDOZA Address: home [id number] Name: ULICES PEARSON Name: ULICES ESPARZA Address: [place] [address] Name: LALA LI
--- OUTSIDE RECORDS SUMMARY | 2022-12-13 21:27 | XMS_ITS | Continuity of Care Document ---
Author Name Unknown Organization [facility] Address [address] [place] [address]- Care Team Providers Care Formula Clerk Name Role Phone Kahlil Sun MD Primary Care Physician [phone] [place] [facility](s): 07/10/22 - 08/19/22 [facility]/[address] [address]- Attending Physician: Vida Goldsmith NP Admitting Physician: Vida Goldsmith NP Allergies, Adverse Reactions, Alerts Substance Reaction Severity Status amitriptyline 1 Mental status Active Ziagen Active aspirin 2 facial edema and sob [...] events reported or observed. 2Result Comment: #2, [facility] 3Result Comment: [facility] 4Result Comment: pharmacy 5Location History: [place] 6Admin Note: vis 08/31/11 7Admin Note: ADMIN.BY RN 8Result Comment: [facility] 9Admin Note: Admin. by RN 10Admin Note: Admin. by RN 11Admin Note: Admin. by RN 12Admin Note: vis 06/14/16 13Admin Note: dose #6 (3rd in 2nd [...] tablet, 5 Refills, Maintenance, 01/08/21 18:41:00 EST, [facility] #[id number], 162, cm, 12/17/20 23:19:00 EDT, Height, 86.3, kg, 09/29/20 15:30:00 EDT, Dry Weight Start Date: 01/08/21 Stop Date: 02/07/21 Status: Ordered Albuterol (Eqv-ProAir HFA) 90 mcg/inh inhalation aerosol 2 puffs, Inhalation, Every 4 hours, PRN NEEDED FOR WHEEZING/SHORTNESS OF BREATH, USE WITH SPACERCHAMBER, # 8.5 Gm, 5 Refills, [facility] #[id number], 16, INHALE 2 PUFFS INTO LUNGS EVERY 4 HOURS NEEDED FOR WHEEZING/SHORTNESS OF BREATH. USE... Start Date: 11/13/20 Status: Ordered albuterol 0.083% inhalation solution 3 mL = 2.5 mg, Inhalation, Every 6 hours, PRN Wheezing/Shortness of Breath, # 60 each, 0 Refills, Maintenance, 06/07/20 12:51:00 EDT, Solution, [facility] #[id number], 162.56, cm, 05/23/20 14:31:00 EDT, Height, 77, [...] tablet, 12 Refills, Maintenance, 04/17/22 7:54:00 EST, [facility] #[id number], 1 tablet By Mouth Daily, 162.56, cm, 04/16/22 16:00:00 EST, Height, 87.6, kg, 10/24/21 8:00:00 EDT, Dry Weight Start Date: 04/17/22 Status: Ordered Biktarvy oral tablet See Instructions, TAKE 1 TABLET BY MOUTH DAILY, # 90 tablet, 0 Refills, Maintenance, 07/15/22 13:50:00 EDT, [facility] #[id number], 90, TAKE 1 TABLET BY MOUTH DAILY, [...] 1 Refills, Maintenance, 07/10/21 18:35:00 EDT, Tablet, [facility][id number], Partial fill upon patient request if the prescription is for a schedule II opioid drug., 162, cm, 06/19/21 15:40:00 EDT... Start Date: 07/10/21 Status: Ordered cloNIDine 0.1 mg oral tablet 1, tablet, By Mouth, 3 times a day, PRN, # 90 tablet, Refills 11, Tot. Refills 11, Maintenance, NEEDED FOR ANXIETY, 08/12/22 15:06:00 EDT, Route to Pharmacy Electronically, [facility] #[id number], 162.56, cm, 07/30/22 10:55:00 EDT, Height, 79.... Start Date: 08/12/22 Status: Ordered Colace Clear 50 mg oral capsule 1 capsule = 50 mg, By Mouth, 2 times a day, PRN as needed for constipation, # 60 capsule, 0 Refills, Maintenance, 12/05/21 15:09:00 EDT, [facility] #[id number], Partial fill upon patient requestif the prescription is for a schedule II opioid nhi... Start Date: 12/05/21 Status: Ordered diclofenac 1% topical gel = 2 Gm, Topically, 4 times a day, PRN for pain, not to exceed: 10 gm/day, # 100 Gm, 1 Refills, Maintenance, 05/29/21 16:52:00 EDT, Gel, [facility], Partial fill upon patient request if the prescription is for a schedule II opioid... Start Date: 05/29/21 Status: Ordered Dulera 200 mcg-5 mcg/inh inhalation aerosol 2 puffs, Inhalation, 2 times a day, # 1 each, 3 Refills, Maintenance, 01/28/21 16:44:00 EST, Aerosol, [facility], STOP FLOVENT, 2 puffs Inhalation 2 times a day,x30 days, 162, cm,01/28/21 16:02:00 EST, Height, 86.3, kg, 09/29/20 1... Start Date: 01/28/21 Stop Date: 05/28/21 Status: Ordered escitalopram 20 mg oral tablet 1 tablet = 20 mg, By Mouth, Daily, # 90 tablet, 0 Refills, Maintenance, 07/30/22 12:03:00 EDT, Tablet, [facility] #[id number], Partial fill upon patient request if the prescription is for a schedule II opioid drug., 162.56, cm, 07/30/22 10:55:00... Start Date: 07/30/22 Status: Ordered ferrous fumarate 324 mg oral tablet 1 tablet = 324 mg, By Mouth, Every other day, # 45 tablet, 0 Refills, Maintenance, 07/31/22 11:19:00 EDT, Tablet, [facility] #[id number], Partial fill upon patient request if the [...] Gm, 5 Refills, Maintenance, 07/19/19 15:19:00 EDT, [place], [facility] #[id number], 2 sprays Nares, Both Daily in AM,x30 [...] Status: Ordered furosemide 20 mg oral tablet See Instructions, TAKE 1 TABLET BY MOUTH EVERY WEDNESDAY, WEDNESDAY AND WEDNESDAY, # 15 tablet, Refills 0, Maintenance, 11/27/21 10:24:00 EDT, Instructions Replace Required Details, Route to Pharmacy Electronically, [facility] #[id number], 162.56, cm,... Start Date: 11/27/21 Status: Ordered Glucose Monitor See Instructions, PRN, [...] # 1 each, Maintenance, [facility] Blood pressure monitor neededto monitor blood pressure [...] 2 Refills, Maintenance, 07/30/22 12:17:00 EDT, Syrup, [facility] #[id number], 30 mL By Mouth 4 times a day, 162.56, cm, 07/30/22 10:55:00 EDT,Height, 79.54, kg, 07/30/22 10:55:00 EDT, Dry Weight Start Date: 07/30/22 Status: Ordered losartan 100 mg oral tablet 1 tablet, By Mouth, Daily, # 30 tablet, 5 Refills, [facility] #[id number], 162, cm, 10/09/21 16:19:00 EDT, Height, 86.3, kg, 09/29/20 15:30:00 EDT, Dry Weight Start Date: 10/20/21 Status: Ordered meclizine 25 mg oral tablet 1 tablet = 25 mg, By Mouth, 2 times a day, # 30 tablet, 1 Refills, Maintenance, 07/10/21 17:25:00 EDT, Tablet, [facility] #[id number], 162, cm, 06/19/21 15:40:00 EDT, Height, 86.3, kg, 09/29/20 15:30:00 EDT, Dry Weight Start Date: 07/10/21 Status: Ordered multivitamin with iron Multiple Vitamins with Iron oral tablet 1 tablet, By Mouth, Daily, # 30 tablet, 11 Refills, Maintenance, 04/17/22 7:51:00 EST, Tablet, [facility] #[id number], 1 tablet By Mouth Daily, 162.56, cm, 04/16/22 16:00:00 EST, Height, 87.6, kg, 10/24/21 8:00:00 EDT, Dry Weight Start Date: 04/17/22 Status: Ordered Narcan 4 mg/0.1 mL nasal spray = 4 mg, Inhalation, Once, # 2 each, 1 Refills, Soft Stop, 10/29/20 12:23:00 EDT, [facility] #[id number], Partial fill upon patient request if the prescription is for a schedule II opioid drug., 162, cm, 09/29/20 15:30:00 EDT, Height, 86.3, kg, 08... Start Date: 10/29/20 Status: Ordered ondansetron 4 mg oral tablet 1 tablet = 4 mg, By Mouth, Daily, PRN Nausea & Vomiting, # 10 tablet, 3 Refills, Maintenance, 06/25/22 17:28:00 EDT, [facility] #[id number], 162.56, cm, 06/25/22 16:16:00 EDT, Height, 87.6, kg, 10/24/21 8:00:00 EDT, Dry Weight Start Date: 06/25/22 Status: Ordered pantoprazole 20 mg oral delayed release tablet 1 tablet, By Mouth, Daily, # 30 tablet, 2 Refills, Maintenance, 06/19/22 10:56:00 EDT, 162.56, cm, 05/07/22 12:32:00 EST, Height, 87.6, kg, 10/24/21 8:00:00 EDT, Dry Weight Start Date: 06/19/22 Status: Ordered PEG-3350 with Electrolytes (Eqv-GoLYTELY) oral powder for reconstitution See Instructions, used as directed, # 1 each, 0 Refills, Maintenance, 06/04/20 16:46:00 EDT, [facility] #[id number], OK to sub for any gallon prep, used as directed, 162.56, cm, 05/23/20 14:31:00 EDT, Height, 77, kg, 03/21/20 15:04:00 EST, Dry We... Start Date: 06/04/20 Status: Ordered Senna 8.6 mg oral tablet 1-3 tablet, By Mouth, Daily, for constipation, # 90 tablet, Refills 5, Tot. Refills 5, Maintenance,03/26/20 15:25:00 EST, Route to Pharmacy Electronically, [facility] #[id number] Tablet, 162.56, cm, 03/21/20 15:01:00 EST, Height, [...] tablet, 5 Refills, Maintenance, 04/17/22 7:53:00 EST, [facility] #[id number], 162.56, cm, 04/16/22 16:00:00 EST, Height, 87.6, kg, 10/24/21 8:00:00 EDT, Dry Weight Start Date: 04/17/22 Status: Ordered Suboxone 8 mg-2 mg Sublingual Film 2 film, Sublingual, Daily, [id number] [place] dissolve under the tongue may fill less due 08/20/2022,# 14 film, 0 Refills, Maintenance, 08/18/22 16:27:00 EDT, Film, [facility], 2 film Sublingual Daily,x7 days,Instr:[id number] Cathy... Start Date: 08/18/22 Stop Date: 08/25/22 Status: Ordered SUMAtriptan 25 mg oral tablet 1 tablet = 25 mg, By Mouth, Daily, PRN as needed for migraine headache, may repeat dose after 2 hours up to a maximum of 2, # 6 tablet, 1 Refills, Maintenance, 03/02/20 19:47:00 EST, Tablet, [facility] #[id number], 162.56, cm, 01/04/20 9:40:00 ES... Start Date: 03/02/20 Status: Ordered zolpidem 5 mg oral tablet 1 tablet = 5 mg, By Mouth, Daily at bedtime, PRN as needed for sleep, # 30 tablet, 1 Refills, Maintenance, 07/27/22 10:36:00 EDT, [facility] #[id number], 162.56, cm, 06/25/22 16:16:00 EDT, Height, 87.6, kg, 10/24/21 8:00:00 EDT, Dry Weight Start Date: 07/27/22 Status: Ordered Problem List Condition Confirmation Course Effective Dates Status H ealth Status Informant Abdominal bloating Confirmed Active Acne Confirmed Active HIV-AIDS-. ART hx in 01/19/18 note. 1, 2 Confirmed 1994 Active Asthma Confirmed Active Cervicovaginal cytology: Low grade squamous intraepithelial lesion Confirmed Active Lumbosacral pain, chronic Confirmed Active Cirrhosis of liver, hx of hepatitis C treated 2013 Confirmed Active Straining with stools Confirmed Active Gastropathy Confirmed Active Acid reflux Confirmed Active H/O heartburn Confirmed Active H/O nausea Confirmed Active Hypertension Confirmed Active Insomnia Confirmed 2016 Active Iron deficiency anemia Confirmed Active Migraine Confirmed Active Obese class I Confirmed Active Opioid use disorder Confirmed Active Opioid dependence Confirmed Active *[id number] 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 2genotype 02/02: [id number] is only mutation detected 3death of sister, caring for mother w/ dementia 4repeat screening colonoscopy in 2020 Social History Social History Type Response Smoking Status Former smoker, quit more than 30 days ago entered on: 12/05/21 Sex Patient Care team information Care Team Personnel Name: Kahlil Sun MD Position: [facility] Physician - Primary Care Member Role: PCP Address: Address: [address] [place] [address]- Name: Sharir Prince Position: [facility] PCO Associate Professional Member Role: [employer] Consult[employer] Provider Care Team Related Persons Name: SHANITA MENDOZA Address: home [address] [place] [address] Name: SHANITA MENDOZA Address: home [address] Name: ULICES PEARSON Name: ULICES ESPARZA Address: [place] [address] Name: LALA LI
--- OUTSIDE RECORDS SUMMARY | 2022-12-13 21:27 | XMS_ITS | Continuity of Care Document ---
Author Name Unknown Organization [facility] Address [address] [place] [address]- Care Team Providers Care Human Factors Advisor Lead Name Role Phone Kahlil Sun MD Primary Care Physician Encounter [facility] Date(s): 08/29/22 - 09/28/22 [facility] [address]- [place] Allergies, Adverse Reactions, Alerts Substance Reaction Severity [...] events reported or observed. 2Result Comment: #2, [facility] 3Result Comment: [facility] 4Result Comment: pharmacy 5Location History: [facility] 6Admin Note: vis 08/31/11 7Admin Note: ADMIN.BY RN 8Result Comment: [facility] 9Admin Note: Admin. by RN 10Admin Note: Admin. by RN 11Admin Note: Admin. by RN 12Admin Note: vis 06/15/15 13Admin Note: dose #6 (3rd in 2nd series) 14Admin Note: dose #5 15Admin Note: #3 16Admin Note: LITO [employer] 17Admin Note: ADMIN BEN, IMAGING AIDE 18Admin Note: BY LEXI Agudelo 19Admin Note: [...] tablet, 5 Refills, Maintenance, 01/08/21 18:41:00 EST, [facility] #[id number], 162, cm, 12/17/20 23:19:00 EDT, Height, 86.3, kg, 09/29/20 15:30:00 EDT, Dry Weight Start Date: 01/08/21 Stop Date: 02/07/21 Status: Ordered Albuterol (Eqv-ProAir HFA) 90 mcg/inh inhalation aerosol 2 puffs, Inhalation, Every 4 hours, PRN NEEDED FOR WHEEZING/SHORTNESS OF BREATH, USE WITH SPACERCHAMBER, # 8.5 Gm, 5 Refills, [facility] #[id number], 16, INHALE 2 PUFFS INTO LUNGS EVERY 4 HOURS NEEDED FOR WHEEZING/SHORTNESS OF BREATH. USE... Start Date: 11/13/20 Status: Ordered albuterol 0.083% inhalation solution 3 mL = 2.5 mg, Inhalation, Every 6 hours, PRN Wheezing/Shortness of Breath, # 60 each, 0 Refills, Maintenance, 06/07/20 12:51:00 EDT, Solution, [facility] #[id number], 162.56, cm, 05/23/20 14:31:00 EDT, Height, 77, [...] 2 Refills, Maintenance, 08/30/22 11:09:00 EDT, Gel, [facility] #[id number], 1 applic... Start Date: 08/30/22 Status: Ordered benzoyl peroxide 2.5% topical gel 1 application, Topically, 2 times a day, keep away from eyes and mucous membranes. clean affected area before application. Start daily and increase to twice a day if tolerated., # 60 Gm, 3 Refills, Maintenance, 09/08/22 22:51:00 EDT, [facility]... Start Date: 09/08/22 Status: Ordered Biktarvy oral tablet 1 tablet, By Mouth, Daily, # 30 tablet, 12 Refills, Maintenance, 04/17/22 7:54:00 EST, [facility] #[id number], 1 tablet By Mouth Daily, 162.56, cm, 04/16/22 16:00:00 EST, Height, 87.6, kg, 10/24/21 8:00:00 EDT, Dry Weight Start Date: 04/17/22 Status: Ordered Biktarvy oral tablet See Instructions, TAKE 1 TABLET BY MOUTH DAILY, # 90 tablet, 0 Refills, Maintenance, 07/15/22 13:50:00 EDT, [facility] #[id number], 90, TAKE 1 TABLET BY MOUTH DAILY, [...] 1 Refills, Maintenance, 07/10/21 18:35:00 EDT, Tablet, [facility] #[id number], Partial fill upon patient request if the [...] 08/12/22 15:06:00 EDT, Route to Pharmacy Electronically, [facility] #[id number], 162.56, cm, 07/30/22 10:55:00 EDT, Height, 79.... Start Date: 08/12/22 Status: Ordered Colace Clear 50 mg oral capsule 1 capsule = 50 mg, By Mouth, 2 times a day, PRN as needed for constipation, # 60 capsule, 0 Refills, Maintenance, 12/05/21 15:09:00 EDT, [facility] #[id number], Partial fill upon patient requestif the prescription is for a schedule II opioid nhi... Start Date: 12/05/21 Status: Ordered diclofenac 1% topical gel = 2 Gm, Topically, 4 times a day, PRN for pain, not to exceed: 10 gm/day, # 100 Gm, 1 Refills, Maintenance, 05/29/21 16:52:00 EDT, Gel, [facility], Partial fill upon patient request if the prescription is for a schedule II opioid... Start Date: 05/29/21 Status: Ordered Dulera 200 mcg-5 mcg/inh inhalation aerosol 2 puffs, Inhalation, 2 times a day, # 1 each, 3 Refills, Maintenance, 01/28/21 16:44:00 EST, Aerosol, [facility], STOP FLOVENT, 2 puffs Inhalation 2 times a day,x30 days, 162, cm,01/28/21 16:02:00 EST, Height, 86.3, kg, 09/29/20 1... Start Date: 01/28/21 Stop Date: 05/28/21 Status: Ordered escitalopram 20 mg oral tablet 1 tablet = 20 mg, By Mouth, Daily, # 90 tablet, 0 Refills, Maintenance, 07/30/22 12:03:00 EDT, Tablet, [facility] #[id number], Partial fill upon patient request if the prescription is for a schedule II opioid drug., 162.56, cm, 07/30/22 10:55:00... Start Date: 07/30/22 Status: Ordered ferrous fumarate 324 mg oral tablet 1 tablet = 324 mg, By Mouth, Every other day, # 45 tablet, 0 Refills, Maintenance, 07/31/22 11:19:00 EDT, Tablet, [facility] #[id number], Partial fill upon patient request if the [...] Gm, 5 Refills, Maintenance, 07/19/19 15:19:00 EDT, [place], [facility] #[id number], 2 sprays Nares, Both Daily in AM,x30 [...] 09/24/22 17:20:00 EDT, Route to Pharmacy Electronically, [facility] #[id number], 162.56, cm, 09/17/22 12:56:00 EDT, [facility]... Start Date: 09/24/22 Status: Ordered Glucose Monitor [...] Instructions, # 1 each, Maintenance, covering for [facility] Blood pressure monitor neededto monitor blood [...] 2 Refills, Maintenance, 07/30/22 12:17:00 EDT, Syrup, [facility] #[id number], 30 mL By Mouth 4 times a day, 162.56, cm, 07/30/22 10:55:00 EDT,Height, 79.54, kg, 07/30/22 10:55:00 EDT, Dry Weight Start Date: 07/30/22 Status: Ordered losartan 100 mg oral tablet 1 tablet, By Mouth, Daily, # 30 tablet, 5 Refills, [facility] #[id number], 162, cm, 10/09/21 16:19:00 EDT, Height, 86.3, kg, 09/29/20 15:30:00 EDT, Dry Weight Start Date: 10/20/21 Status: Ordered meclizine 25 mg oral tablet 1 tablet = 25 mg, By Mouth, 2 times a day, # 30 tablet, 1 Refills, Maintenance, 07/10/21 17:25:00 EDT, Tablet, [facility] #[id number], 162, cm, 06/19/21 15:40:00 EDT, Height, 86.3, kg, 09/29/20 15:30:00 EDT, Dry Weight Start Date: 07/10/21 Status: Ordered multivitamin with iron Multiple Vitamins with Iron oral tablet 1 tablet, By Mouth, Daily, # 30 tablet, 11 Refills, Maintenance, 04/17/22 7:51:00 EST, Tablet, [facility] #[id number], 1 tablet By Mouth Daily, 162.56, cm, 04/16/22 16:00:00 EST, Height, 87.6, kg, 10/24/21 8:00:00 EDT, Dry Weight Start Date: 04/17/22 Status: Ordered Narcan 4 mg/0.1 mL nasal spray = 4 mg, Inhalation, Once, # 2 each, 1 Refills, Soft Stop, 10/29/20 12:23:00 EDT, [facility] #[id number], Partial fill upon patient request if the prescription is for a schedule II opioid drug., 162, cm, 09/29/20 15:30:00 EDT, Height, 86.3, kg, 08... Start Date: 10/29/20 Status: Ordered ondansetron 4 mg oral tablet 1 tablet = 4 mg, By Mouth, Daily, PRN Nausea & Vomiting, # 10 tablet, 3 Refills, Maintenance, 06/25/22 17:28:00 EDT, [facility] #[id number], 162.56, cm, 06/25/22 16:16:00 EDT, Height, 87.6, [...] 2 Refills, Maintenance, 08/21/22 17:50:00 EDT, Tablet, [facility] #[id number], this is correct dose. 200mg Rx just sent by mistake., 162.56, cm, 08/20/22 13:54:00 EDT, Height, 79.54, kg, 06... Start Date: 08/21/22 Status: Ordered Senna 8.6 mg oral tablet 1-3 tablet, By Mouth, Daily, for constipation, # 90 tablet, Refills 5, Tot. Refills 5, Maintenance,03/26/20 15:25:00 EST, Route to Pharmacy Electronically, [facility] #[id number] Tablet, 162.56, cm, 03/21/20 15:01:00 EST, Height, [...] 09/24/22 17:20:00 EDT, Route to Pharmacy Electronically, [facility] #[id number], 162.56, cm, 09/17/22 12:56:00 EDT, [place]... Start Date: 09/24/22 Status: Ordered Suboxone 8 mg-2 mg Sublingual Film 2 film, Sublingual, Daily, [id number] [place] dissolve under the tongue may fill less due 10/01/2022, # 14 film, 0 Refills, Maintenance, 09/24/22 17:02:00 EDT, Film, [facility], 2 film Sublingual Daily,x7 days,Instr:[id number] [place]... Start Date: 09/24/22 Stop Date: 10/01/22 Status: Ordered SUMAtriptan 25 mg oral tablet 1 tablet = 25 mg, By Mouth, Daily, PRN as needed for migraine headache, may repeat dose after 2 hours up to a maximum of 2, # 6 tablet, 1 Refills, Maintenance, 03/02/20 19:47:00 EST, Tablet, [facility] #[id number], 162.56, cm, 01/04/20 9:40:00 ES... 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 2genotype 02/02: [id number] is only mutation detected 3death of sister, caring for mother w/ dementia 4repeat screening colonoscopy in 2020 Social History Social History Type Response Smoking Status Former smoker, quit more than 30 days ago entered on: 12/05/21 Sex Patient Care team information Care Team Personnel Name: Kahlil Sun MD Position: [facility] Physician - Primary Care Member Role: PCP Address: Address: [address] [place] [address] Name: Sharri Prince Position: [facility] PCO Associate Professional Member Role: [employer] Consulting Provider Care Team Related Persons Name: SHANITA MENDOZA Address: home [address] [place] [id number] Name: SHANITA MENDOZA Address: home [address] Name: ULICES PEARSON Name: ULICES ESPARZA Address: [place] [address] Name: LALA LI
--- OUTSIDE RECORDS SUMMARY | 2022-12-13 21:27 | XMS_ITS | Continuity of Care Document ---
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 Name Role Phone Kahlil Sun MD Primary Care Physician [phone] Encounter [facility] – [place] Date(s): 04/07/21 - 05/07/21 [facility] Attending Physician: Kahlil Sun MD Admitting Physician: Kahlil Sun MD Allergies, Adverse Reactions, Alerts Substance Reaction Severity Status amitriptyline 1 Mental status Active aspirin 2 facial edema and sob Severe Active nevirapine Active Levaquin 3 Active Ziagen Active 1dreaming, near halliucinations 2facial edema and sob 3itchy, nervous Immunizations Given and Recorded Vaccine Date Status Refusal Reason SARS-CoV-2 (COVID-19) mRNA BNT-162b2 vac 1 02/07/21 [...] events reported or observed. 2Result Comment: #2, [facility] 3Result Comment: [facility] 4Result Comment: pharmacy 5Location History: [facility] 6Admin Note: vis 08/31/11 7Admin Note: ADMIN.BY RN 8Result Comment: [facility] 9Admin Note: Admin. by RN 10Admin Note: Admin. by RN 11Admin Note: Admin. 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 Start Date: 09/12/20 Status: Ordered acyclovir 400 mg oral tablet 1 tablet = 400 mg, By Mouth, 2 times a day, # 10 tablet, 5 Refills, Maintenance, 01/08/21 18:41:00 EST, [email or web address] #[id number], 162, cm, 12/17/20 23:19:00 EDT, Height, 86.3, kg, 09/29/20 15:30:00 EDT, Dry Weight Start Date: 01/08/21 Stop Date: 02/07/21 Status: Ordered Albuterol (Eqv-ProAir HFA) 90 mcg/inh inhalation aerosol 2 puffs, Inhalation, Every 4 hours, PRN NEEDED FOR WHEEZING/SHORTNESS OF BREATH, USE WITH SPACERCHAMBER, # 8.5 Gm, 5 Refills, [email or web address] #[id number], 16, INHALE 2 PUFFS INTO LUNGS EVERY 4 HOURS NEEDED FOR WHEEZING/SHORTNESS OF BREATH. USE... Start Date: 11/13/20 Status: Ordered albuterol 0.083% inhalation solution 3 mL = 2.5 mg, Inhalation, Every 6 hours, PRN Wheezing/Shortness of Breath, # 60 each, 0 Refills, Maintenance, 06/07/20 12:51:00 EDT, Solution, [facility] #[id number], 162.56, cm, 05/23/20 14:31:00 EDT, Height, 77, [...] tablet, 3 Refills, Maintenance, 03/02/20 19:50:00 EST, [facility] #[id number], 1 tablet By Mouth Daily, 162.56, cm, [...] 2 Refills, Maintenance, 06/29/19 16:02:00 EDT, Tablet, [email or web address] #[id number], 162.56, cm, 05/03/19 16:30:00 EST, Height, 72.3, kg, 09/26/18 16:01:00 EDT, Dry Weight Start Date: 06/29/19 Status: Ordered cloNIDine 0.1 mg oral tablet 0.1 mg, 1, tablet, By Mouth, 3 times a day, as needed for anxiety, # 25 tablet, Refills 0, Tot. Refills 0, Maintenance, 10/10/19 21:36:00 EDT, Route to Pharmacy Electronically, [facility] #[id number], 162.56, cm, 10/09/19 10:36:00 EDT, Height, 72... Start Date: 10/10/19 Status: Ordered Dulera 200 mcg-5 mcg/inh inhalation aerosol 2 puffs, Inhalation, 2 times a day, # 1 each, 3 Refills, Maintenance, 01/28/21 16:44:00 EST, Aerosol, [facility], STOP FLOVENT, 2 puffs Inhalation 2 times a day,x30 days, 162, cm,01/28/21 16:02:00 EST, Height, 86.3, kg, 09/29/20 1... Start Date: 01/28/21 Stop Date: 05/28/21 Status: Ordered escitalopram 5 mg oral tablet 1 tablet = 5 mg, By Mouth, Daily, # 30 tablet, 11 Refills, Maintenance, 05/07/21 9:48:00 EST, Tablet, [email or web address] #03900, Partial fill upon patient request if the prescription is for a schedule II opioid drug., 162, cm, 05/07/21 8:46:00 EST,... Start Date: 05/07/21 Status: Ordered Flonase 50 mcg/inh nasal spray 2 sprays, Nares, Both, Daily in AM, # 16 Gm, 5 Refills, Maintenance, 07/19/19 15:19:00 EDT, [place], [email or web address] #50839, 2 sprays Nares, Both Daily in AM,x30 days, 162.56, cm, 05/03/19 16:30:00 EST, Height, 72.3, kg, 09/26/18 16:01:00 EDT, Dry... Start Date: 07/19/19 Stop Date: 01/15/20 Status: Ordered fluconazole 150 mg oral tablet 1 tablet = 150 mg, By Mouth, Once, # 1 tablet, 1 Refills, Soft Stop, 01/08/21 19:37:00 EST, Tablet,[email or web address] #68402, 162, cm, 12/17/20 23:19:00 EDT, Height, 86.3, kg, 09/29/20 15:30:00 EDT, Dry Weight Start Date: 01/08/21 Status: Ordered Freestyle Lite Lancets See Instructions, [...] tablet 20 mg, 1, tablet, By Mouth, Every Wednesday, Wednesday and Wednesday, # 15 tablet, Refills 5, Tot. Refills 5, Maintenance, 04/24/21 12:37:00 EST, Route to Pharmacy Electronically, [facility] #[id number], STOP HCTZ, 162, cm, 03/24/21 18:41:00 EST, Heigh... Start Date: 04/24/21 Stop Date: 10/21/21 Status: Ordered Glucose Monitor See Instructions, PRN, [...] Instructions, # 1 each, Maintenance, covering for [facility] Blood pressure monitor neededto monitor blood pressure DX: hypertension, 07/11/18 17:28:42 EDT, Compound Start Date: 07/11/18 Status: Ordered humidifier humidifier, See Instructions, # 1 each, Refills 0, Tot. Refills 0, Maintenance, use as directed forchronic sinusitis J32, 04/09/17 14:21:37 EST, Compound Start Date: 04/09/17 Status: Ordered Liletta 52 mg intrauterine device See Instructions, 1 each Once, # 1 each, 0 Refills, Soft Stop, 07/11/18 16:17:37 EDT Start Date: 07/11/18 Status: Ordered loratadine 10 mg oral tablet 10 mg, 1, tablet, By Mouth, Daily, PRN, # 30 tablet, Refills 3, Tot. Refills 3, Maintenance, allergy/itch, 05/12/18 14:45:33 EDT, Route to Pharmacy Electronically, [id number], [facility] Start Date: 05/12/18 Status: Ordered LORazepam 0.5 mg oral tablet 0.5 tablet = 0.25 mg, By Mouth, 2 times a day, PRN as needed for anxiety, # 20 tablet, 1 Refills, Maintenance, 05/16/19 23:11:00 EDT, Tablet, [facility] #[id number], 162.56, cm, 05/03/19 16:30:00 EST, Height, 72.3, kg, 09/26/18 16:01:00 EDT, Dry... Start Date: 05/16/19 Status: Ordered losartan 100 mg oral tablet 1 tablet, By Mouth, Daily, # 30 tablet, 5 Refills, Maintenance, 09/24/20 16:00:00 EDT, [facility] #[id number], 162, cm, 09/19/20 15:59:00 EDT, Height, 82.1, kg, 06/08/20 17:25:00 EDT, Dry Weight Start Date: 09/24/20 Status: Ordered meclizine 25 mg oral tablet 1 tablet = 25 mg, By Mouth, 2 times a day, # 30 tablet, 1 Refills, Maintenance, 03/30/19 15:49:00 EST, Tablet, [facility] #[id number], 162.56, cm, 03/08/19 14:34:00 EST, Height, 72.3, kg, 09/26/18 16:01:00 EDT, Dry Weight Start Date: 03/30/19 Status: Ordered multivitamin with iron Multiple Vitamins with Iron oral tablet 1 tablet, By Mouth, Daily, # 30 tablet, 11 Refills, Maintenance, 05/07/21 9:45:00 EST, Tablet, [facility] #[id number], Partial fill upon patient request if the prescription is for a schedule II opioid drug., 1 tablet By Mouth Daily, 162, cm, 0... Start Date: 05/07/21 Status: Ordered Narcan 4 mg/0.1 mL nasal spray = 4 mg, Inhalation, Once, # 2 each, 1 Refills, Soft Stop, 10/29/20 12:23:00 EDT, [facility] #[id number], Partial fill upon patient request if the prescription is for a schedule II opioid drug., 162, cm, 09/29/20 15:30:00 EDT, Height, 86.3, kg, 08... Start Date: 10/29/20 Status: Ordered pantoprazole 20 mg oral delayed release tablet See Instructions, TAKE 1 TABLET BY MOUTH DAILY IN THE MORNING TAKE 30 MINUTES BEFORE FIRST MEAL, # 30 tablet, 3 Refills, 05/05/21 14:41:00 EST, 162, cm, 05/01/21 10:24:00 EST, Height, 86.3, kg, 09/29/20 15:30:00 EDT, Dry Weight Start Date: 05/05/21 Status: Ordered PEG-3350 with Electrolytes (Eqv-GoLYTELY) oral powder for reconstitution See Instructions, used as directed, # 1 each, 0 Refills, Maintenance, 06/04/20 16:46:00 EDT, [facility] #[id number], OK to sub for any gallon prep, used as directed, 162.56, cm, 05/23/20 14:31:00 EDT, Height, 77, kg, 03/21/20 15:04:00 EST, Dry We... Start Date: 06/04/20 Status: Ordered predniSONE 50 mg oral tablet 1 tablet = 50 mg, By Mouth, Daily, # 7 tablet, 0 Refills, Maintenance, 01/28/21 16:37:00 EST, Tablet, [facility], Partial fill upon patient request if the prescription is for a schedule II opioid drug., 162, cm, 01/28/21 16:02:00 E... Start Date: 01/28/21 Stop Date: 02/04/21 Status: Ordered Senna 8.6 mg oral tablet 1-3 tablet, By Mouth, Daily, for constipation, # 90 tablet, Refills 5, Tot. Refills 5, Maintenance,03/26/20 15:25:00 EST, Route to Pharmacy Electronically, [email or web address] #[id number] Tablet, 162.56, cm, 03/21/20 15:01:00 EST, Height, [...] Ordered spironolactone 50 mg oral tablet 1 tablet = 50 mg, By Mouth, Daily, # 30 tablet, 5 Refills, Maintenance, 04/24/21 12:36:00 EST, Tablet, [email or web address] #45745, STOP HCTZ, 162, cm, 03/24/21 18:41:00 EST, Height, 86.3, kg, 09/29/20 15:30:00 EDT, Dry Weight Start Date: 04/24/21 Stop Date: 10/21/21 Status: Ordered Sublocade 100 mg/0.5 mL subcutaneous solution, extended release = 100 mg, Subcutaneous Infusion, Every 28 days, # 1 each, 2 Refills, Maintenance, 12/17/20 21:41:00EDT, [facility], Partial fill upon patient request if the prescription is for a schedule II opioid drug., 162, cm, 12/17/20 15:09:00 EDT, Height, 86.3, kg... Start Date: 12/17/20 Status: Ordered Suboxone 8 mg-2 mg Sublingual Film 2.5 film, Sublingual, Daily, dissolve under the tongue increase in dose Marva [id number] covering Dino [id number] due on/after 05/02/2021, # 35 film, 0 Refills, Maintenance, 05/05/21 15:07:00 EST,Film, [facility] #[id number], 2.5 film Sub... Start Date: 05/05/21 Status: Ordered SUMAtriptan 25 mg oral tablet 1 tablet = 25 mg, By Mouth, Daily, PRN as needed for migraine headache, may repeat dose after 2 hours up to a maximum of 2, # 6 tablet, 1 Refills, Maintenance, 03/02/20 19:47:00 EST, Tablet, [email or web address] #87215, 162.56, cm, 01/04/20 9:40:00 ES... Start Date: 03/02/20 Status: Ordered Zofran 4 mg oral tablet 1 tablet = 4 mg, By Mouth, 2 times a day, PRN Nausea & Vomiting, # 10 tablet, 0 Refills, Maintenance, 05/01/21 1:24:00 EST, Tablet, [email or web address] #17404, 162, cm, 03/24/21 18:41:00 EST, Height, 86.3, kg, 09/29/20 15:30:00 EDT, Dry Weight Start Date: 05/01/21 Status: Ordered zolpidem 5 mg oral tablet 0.5 tablet = 2.5 mg, By Mouth, Daily at bedtime, PRN sleep, # 5 tablet, 0 Refills, Acute 05/29/21 9:47:00 EDT, 05/07/21 9:46:00 EST, Tablet, [email or web address] #09141, Partial fill upon patient request if the prescription is for a schedule II opioid... Start Date: 05/07/21 Stop Date: 05/29/21 Status: Ordered Problem List Condition Effective Dates Status Health Status Inform ant Abdominal bloating(Confirmed) Active Acne(Confirmed) Active HIV-AIDS-. ART hx in 8 note.(Confirmed) 1, 2 1994 Active Ascites(Confirmed) Active Asthma(Confirmed) Active Cervicovaginal cytology: Low grade squamous intraepithelial lesion(Confirmed) Active Lumbosacral pain, chronic(Confirmed) Active Cirrhosis of liver, hx of he patitis C treated 2013(Confirmed) Active Straining with stools(Confirmed) Active Gastropathy(Confirmed) Active Acid reflux(Confirmed) Active H/O heartburn(Confirmed) Active H/O nausea(Confirmed) Active Hypertension(Confirmed) Active Insomnia(Confirmed) 2016 Active Migraine(Confirmed) Active Obese class I(Confirmed) Active Opioid dependence(Confirmed) Active *[id number] Care Partn er April Saavedra(Confirmed) Active Health care maintenance(Confirmed) Active Portal hypertensive gastropathy(Confirmed) 11/30/11 Active Psychological stress(Confirmed) 3 Active Rectal pain(Confirmed) Active TMJ - click(Confirmed) Active Tubular adenoma of colon(Confirmed) 4 03/30/17 Active Varicose veins of both lower extremities(Confirmed) Active Vitamin D deficiency(Confirmed) 2010 Active 1CBV + NFV on/off/on-suppressed, switch 04/08 to Truvada + ATV 500mg for QD adherence, switch 03/10 toTruvada + raltegravir for upperGI tolerance, and QD need over. 2genotype 02/02: [id number] is only mutation detected 3death of sister, caring for mother w/ dementia 4repeat screening colonoscopy in 2020 Social History Social History Type Response Smoking Status Former smoker, quit more than 30 days ago entered on: 10/29/20 Sex
--- OUTSIDE RECORDS SUMMARY | 2022-12-13 21:27 | XMS_ITS | Continuity of Care Document ---
Author Name Unknown Organization [facility] Address [address] [place] [address]- Care Team Providers Care Motion Picture Set Grip Name Role Phone Kahlil Sun MD Primary Care Physician Encounter [facility] [place] Date(s): 12/11/21 - 01/10/22 [facility] [address]- [place] Allergies, Adverse Reactions, Alerts Substance Reaction [...] virus vaccine, inactivated 7 12/1/04 Gi feliciano Influenza Virus Vaccine (oldterm) 8 [...] events reported or observed. 2Result Comment: #2, [facility] 3Result Comment: [facility] 4Result Comment: pharmacy 5Location History: [facility] 6Admin Note: vis 08/31/11 7Admin Note: ADMIN.BY RN 8Result Comment: [facility] 9Admin Note: Admin. by RN 10Admin Note: Admin. by RN 11Admin Note: Admin. 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 Start Date: 12/05/21 Status: Ordered acyclovir 400 mg oral tablet 1 tablet = 400 mg, By Mouth, 2 times a day, # 10 tablet, 5 Refills, Maintenance, 01/08/21 18:41:00 EST, [facility] #[id number], 162, cm, 12/17/20 23:19:00 EDT, Height, 86.3, kg, 09/29/20 15:30:00 EDT, Dry Weight Start Date: 01/08/21 Stop Date: 02/07/21 Status: Ordered Albuterol (Eqv-ProAir HFA) 90 mcg/inh inhalation aerosol 2 puffs, Inhalation, Every 4 hours, PRN NEEDED FOR WHEEZING/SHORTNESS OF BREATH, USE WITH SPACERCHAMBER, # 8.5 Gm, 5 Refills, [facility] #65731, 16, INHALE 2 PUFFS INTO LUNGS EVERY 4 HOURS NEEDED FOR WHEEZING/SHORTNESS OF BREATH. USE... Start Date: 11/13/20 Status: Ordered albuterol 0.083% inhalation solution 3 mL = 2.5 mg, Inhalation, Every 6 hours, PRN Wheezing/Shortness of Breath, # 60 each, 0 Refills, Maintenance, 06/07/20 12:51:00 EDT, Solution, [facility] #[id number], 162.56, cm, 05/23/20 14:31:00 EDT, Height, 77, kg, 03/21/20 15:04:00 EST, Dry... Start Date: 06/07/20 Status: Ordered Alcohol Wipes See Instructions, # 100 each, Refills 2, Tot. Refills 2, Maintenance, for glucose testing as directed. Dx: E16.1 - hypoglycemia, R73.9 - Hyperglycemia, 06/12/20 17:54:00 EDT, Compound, 163, cm, 06/08/20 17:25:00 EDT, Height, 82.1, kg, 06/08/20 17:25:0... Start Date: 06/12/20 Status: Ordered baclofen 10 mg oral tablet 10 mg, 1, tablet, By Mouth, 2 times a day, start with half tablet twice a day for several days, # 60 tablet, Refills 2, Tot. Refills 2, Maintenance, 01/04/22 19:11:00 EST, Route to Pharmacy Electronically, [facility] #[id number], 162.56, cm, 11/0... Start Date: 01/04/22 Status: Ordered Biktarvy oral tablet 1 tablet, By Mouth, Daily, # 90 tablet, 3 Refills, Maintenance, 06/13/21 22:19:00 EDT, [facility] #[id number], 1 tablet By Mouth Daily, 162, cm, 05/29/21 15:29:00 EDT, Height, 86.3, kg, 09/29/2114:30:00 EDT, Dry Weight Start Date: 06/13/21 Status: Ordered Blood Pressure Meter Blood Pressure Meter, See Instructions, # 1 each, Refills 0, Tot. Refills 0, Maintenance, Use for, 07/11/18 16:11:47 EDT, Compound Start Date: 07/11/18 Status: Ordered cetirizine 10 mg oral tablet 1 tablet = 10 mg, By Mouth, Daily, # 30 tablet, 1 Refills, Maintenance, 07/10/21 18:35:00 EDT, Tablet, [facility] #[id number], Partial fill upon patient request if the prescription is for a schedule II opioid drug., 162, cm, 06/19/21 15:40:00 EDT... Start Date: 07/10/21 Status: Ordered cloNIDine 0.1 mg oral tablet 1, tablet, By Mouth, 3 times a day, PRN, # 270 tablet, Refills 0, Maintenance, NEEDED FOR ANXIETY, 01/01/22 10:42:00 EDT, Route to Pharmacy Electronically, [facility] #[id number], 162.56, cm,12/05/21 14:12:00 EDT, Height, 87.6, kg, 10/24/21 8... Start Date: 01/01/22 Status: Ordered Colace Clear 50 mg oral capsule 1 capsule = 50 mg, By Mouth, 2 times a day, PRN as needed for constipation, # 60 capsule, 0 Refills, Maintenance, 12/05/21 15:09:00 EDT, [facility] #[id number], Partial fill upon patient requestif the prescription is for a schedule II opioid nhi... Start Date: 12/05/21 Status: Ordered diclofenac 1% topical gel = 2 Gm, Topically, 4 times a day, PRN for pain, not to exceed: 10 gm/day, # 100 Gm, 1 Refills, Maintenance, 05/29/21 16:52:00 EDT, Gel, [facility], Partial fill upon patient request [...] 01/28/21 Stop Date: 05/28/21 Status: Ordered escitalopram 10 mg oral tablet 1 tablet = 10 mg, By Mouth, Daily, # 30 tablet, 11 Refills, Maintenance, 07/31/21 17:50:00 EDT, Tablet, [facility] #[id number], Partial fill upon patient request if the prescription is for a schedule II opioid drug., 162, cm, 07/31/21 16:00:00 ED... Start Date: 07/31/21 Status: Ordered finger pulse oximeter finger pulse [...] Gm, 5 Refills, Maintenance, 07/19/19 15:19:00 EDT, [place], [facility] #[id number], 2 sprays Nares, Both Daily in AM,x30 days, 162.56, cm, 05/03/19 16:30:00 EST, Height, 72.3, kg, 09/26/18 16:01:00 EDT, Dry... Start Date: 07/19/19 Stop Date: 01/15/20 Status: Ordered Freestyle Lite Lancets See Instructions, [...] Replace Required Details, Route to Pharmacy Electronically, [facility] #[id number], 162.56, cm,... Start Date: 11/27/21 Status: Ordered [...] Instructions, # 1 each, Maintenance, covering for [facility] Blood pressure monitor neededto monitor blood pressure DX: hypertension, 07/11/18 17:28:42 EDT, Compound Start Date: 07/11/18 Status: Ordered humidifier humidifier, See Instructions, # 1 each, Refills 0, Tot. Refills 0, Maintenance, use as directed forchronic sinusitis J32, 04/09/17 14:21:37 EST, Compound Start Date: 04/09/17 Status: Ordered losartan 100 mg oral tablet 1 tablet, By Mouth, Daily, # 30 tablet, 5 Refills, [facility] #[id number], 162, cm, 10/09/21 16:19:00 EDT, Height, 86.3, kg, 09/29/20 15:30:00 EDT, Dry Weight Start Date: 10/20/21 Status: Ordered meclizine 25 mg oral tablet 1 tablet = 25 mg, By Mouth, 2 times a day, # 30 tablet, 1 Refills, Maintenance, 07/10/21 17:25:00 EDT, Tablet, [facility] #38961, 162, cm, 06/19/21 15:40:00 EDT, Height, 86.3, kg, 09/29/20 15:30:00 EDT, Dry Weight Start Date: 07/10/21 Status: Ordered multivitamin with iron Multiple Vitamins with Iron oral tablet 1 tablet, By Mouth, Daily, # 30 tablet, 11 Refills, Maintenance, 09/06/21 19:08:00 EDT, Tablet, [facility] #[id number], 1 tablet By Mouth Daily, 162, cm, 07/31/21 16:00:00 EDT, Height, 86.3, kg,09/29/20 15:30:00 EDT, Dry Weight Start Date: 09/06/21 Status: Ordered Narcan 4 mg/0.1 mL nasal spray = 4 mg, Inhalation, Once, # 2 each, 1 Refills, Soft Stop, 10/29/20 12:23:00 EDT, [facility] #[id number], Partial fill upon patient request if the prescription is for a schedule II opioid drug., 162, cm, 09/29/20 15:30:00 EDT, Height, 86.3, kg, 08... Start Date: 10/29/20 Status: Ordered ondansetron 4 mg oral tablet 1 tablet = 4 mg, By Mouth, Daily, PRN Nausea & Vomiting, # 10 tablet, 3 Refills, Maintenance, 10/08/21 22:17:00 EDT, [facility] #[id number], 162, cm, 10/09/21 16:19:00 EDT, Height, 86.3, kg,09/29/20 15:30:00 EDT, Dry Weight Start Date: 10/08/21 Status: Ordered pantoprazole 20 mg oral delayed release tablet 1 tablet = 20 mg, By Mouth, Daily, # 30 tablet, 5 Refills, Maintenance, 12/21/21 23:45:00 EDT, 162.56, cm, 12/05/21 14:12:00 EDT, Height, 87.6, kg, 10/24/21 8:00:00 EDT, Dry Weight Start Date: 12/21/21 Status: Ordered PEG-3350 with Electrolytes (Eqv-GoLYTELY) oral powder for reconstitution See Instructions, used as directed, # 1 each, 0 Refills, Maintenance, 06/04/20 16:46:00 EDT, [facility] #[id number], OK to sub for any gallon prep, used as directed, 162.56, cm, 05/23/20 14:31:00 EDT, Height, 77, kg, 03/21/20 15:04:00 EST, Dry We... Start Date: 06/04/20 Status: Ordered Senna 8.6 mg oral tablet 1-3 tablet, By Mouth, Daily, for constipation, # 90 tablet, Refills 5, Tot. Refills 5, Maintenance,03/26/20 15:25:00 EST, Route to Pharmacy Electronically, [facility] #[id number] Tablet, 162.56, cm, 03/21/20 15:01:00 EST, Height, [...] Daily, # 30 tablet, 2 Refills, Maintenance, 12/23/21 16:29:00 EDT, [facility] #[id number], 162.56, cm, 12/05/21 14:12:00 EDT, Height, 87.6, kg, 10/24/21 8:00:00 EDT, Dry Weight Start Date: 12/23/21 Status: Ordered Suboxone 8 mg-2 mg Sublingual Film 2.5 film, Sublingual, Daily, dissolve under the tongue may fill less due 01/02/2022 Dino [id number], # 70 film, 0 Refills, Maintenance, 12/31/21 7:56:00 EDT, Film, [facility] #[id number], 2.5 film Sublingual Daily,x28 days,Instr:dissolve unde... Start Date: 12/31/21 Stop Date: 01/28/22 Status: Ordered Suboxone 8 mg-2 mg Sublingual Film 2.5 film, Sublingual, Daily, dissolve under the tongue increase in dose Iveth [id number] coveringfor Dino baires on/after 08/22/2021, # 35 film, 0 Refills, Maintenance, 08/22/21 9:27:00 EDT, Film,[facility], 2.5 film Subli... Start Date: 08/22/21 Stop Date: 09/05/21 Status: Ordered SUMAtriptan 25 mg oral tablet 1 tablet = 25 mg, By Mouth, Daily, PRN as needed for migraine headache, may repeat dose after 2 hours up to a maximum of 2, # 6 tablet, 1 Refills, Maintenance, 03/02/20 19:47:00 EST, Tablet, [facility] #[id number], 162.56, cm, 01/04/20 9:40:00 ES... Start Date: 03/02/20 Status: Ordered zolpidem 5 mg oral tablet 1 tablet = 5 mg, By Mouth, Daily at bedtime, PRN as needed for sleep, covering for Dr. Sun, # 30 tablet, 1 Refills, Maintenance, 12/26/21 13:13:00 EDT, [facility] #[id number], 162.56, cm, 12/05/21 14:12:00 EDT, Height, 87.6, kg, 10/24/21 8:00... 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 2genotype 02/02: [id number] is only mutation detected 3death of sister, caring for mother w/ dementia 4repeat screening colonoscopy in 2020 Social History Social History Type Response Smoking Status Former smoker, quit more than 30 days ago entered on: 12/05/21 Sex Patient Care team information Care Team Personnel Name: Kahlil Sun MD Position: [facility] Primary Care Physician Member Role: PCP Address: Address: [address] [place] [address] Name: Sharri Prince Position: [facility] PCO Associate Professional Member Role: [employer] Provider Care Team Related Persons Name: SHANITA MENDOZA Address: [address] [place] [address] Name: SHANITA MENDOZA BRITTNY Address: home [address] Name: ULICES PEARSON Name: ULICES ESPARZA Address: [place] [address] Name: LALA LI
--- OUTSIDE RECORDS SUMMARY | 2022-12-13 21:27 | XMS_ITS | Continuity of Care Document ---
Author Name Unknown Organization 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 Attending Physician: Ankit Keller Admitting Physician: AdmAnkit hughes Referring Physician: Admtr, ArHe Allergies, Adverse Reactions, Alerts Substance Reaction Severity [...] toxoids (Td) 03/10/01 Given 1Result Comment: #2, [facility] Jennifer 2Result Comment: [facility] 5Location History: [facility] 6Admin [...] 1 Refills, Maintenance, 09/12/20 16:18:00EDT, CR Tablet, [facility] #[id number], Partial fill upon patient request if the prescription is for a schedule II opioid drug., 162, cm, 09/12/20... Start Date: 09/12/20 Status: Ordered acyclovir 400 mg oral tablet 1 tablet = 400 mg, By Mouth, 2 times a day, # 10 tablet, 5 Refills, Maintenance, 01/26/20 16:20:00 EST, [facility], 162.56, cm, 10/09/19 10:36:00 EDT, Height, 72.3, kg, 09/26/18 16:01:00 EDT, Dry Weight Start Date: 01/26/20 Stop Date: 02/25/20 Status: Ordered albuterol 0.083% inhalation solution 3 mL = 2.5 mg, Inhalation, Every 6 hours, PRN Wheezing/Shortness of Breath, # 60 each, 0 Refills, Maintenance, 06/07/20 12:51:00 EDT, Solution, [facility] #[id number], 162.56, cm, 05/23/20 14:31:00 EDT, Height, 77, [...] tablet, 3 Refills, Maintenance, 03/02/20 19:50:00 EST, [facility] #[id number], 1 tablet By Mouth Daily, 162.56, cm, 01/04/20 9:40:00 EST, Height, 72.3, kg, 09/26/18 16:01:00 EDT, Dry Weight Start Date: 03/02/20 Status: Ordered Blood Pressure Meter Blood Pressure Meter, See Instructions, # 1 each, Refills 0, Tot. Refills 0, Maintenance, Use for, 07/11/18 16:11:47 EDT, Compound Start Date: 07/11/18 Status: Ordered buprenorphine-naloxone 2 mg-0.5 mg sublingual film 0.25 each, Sublingual, Daily, Dino [id number], # 8 film, 0 Refills, Maintenance, 12/15/19 19:00:00 EDT, [facility] #[id number], Partial fill on request., 0.25 each Sublingual Daily,Instr:Dino [id number], 162.56, cm, 10/09/19 10:36:00 EDT, Hei... Start Date: 12/15/19 Status: Ordered buprenorphine-naloxone 8 mg-2 mg sublingual film 1 film, Sublingual, Daily, dissolve under the tongue, # 7 film, 0 Refills, Maintenance, 09/12/20 15:38:00 EDT, Film, [facility] #[id number], Partial fill upon patient request if the prescriptionis for a schedule II opioid drug., 1 film Sublingua... Start Date: 09/12/20 Stop Date: 09/19/20 Status: Ordered cetirizine 10 mg oral tablet 1 tablet = 10 mg, By Mouth, Daily, For allergies., # 30 tablet, 2 Refills, Maintenance, 06/29/19 16:02:00 EDT, Tablet, [facility] #[id number], 162.56, cm, 05/03/19 16:30:00 EST, Height, 72.3, kg, 09/26/18 16:01:00 EDT, Dry Weight Start Date: 06/29/19 Status: Ordered cloNIDine 0.1 mg oral tablet 0.1 mg, 1, tablet, By Mouth, 3 times a day, as needed for anxiety, # 25 tablet, Refills 0, Tot. Refills 0, Maintenance, 10/10/19 21:36:00 EDT, Route to Pharmacy Electronically, [facility] #[id number], 162.56, cm, 10/09/19 10:36:00 EDT, Height, 72... [...] Gm, 5 Refills, Maintenance, 07/19/19 15:19:00 EDT, [place], [facility] #[id number], 2 sprays Nares, Both Daily in AM,x30 days, 162.56, cm, 05/03/19 16:30:00 EST, Height, 72.3, kg, 09/26/18 16:01:00 EDT, Dry... Start Date: 07/19/19 Stop Date: 01/15/20 Status: Ordered Flovent HFA 44 mcg/inh inhalation aerosol 1 puffs, Inhalation, 2 times a day, # 1 each, 5 Refills, Maintenance, 06/07/20 12:52:00 EDT, Aerosol, [facility] #[id number], 162.56, cm, 05/23/20 14:31:00 EDT, Height, 77, [...] Instructions, # 1 each, Maintenance, covering for [facility] Blood pressure monitor neededto [...] 3 Refills, Maintenance, 03/02/20 19:48:00 EST, Tablet, [facility] #[id number], 30 day supply preferred for present, 162.56, [...] 05/12/18 14:45:33 EDT, Route to Pharmacy Electronically, [id number], [facility] Start Date: 05/12/18 Status: Ordered LORazepam 0.5 mg oral tablet 0.5 tablet = 0.25 mg, By Mouth, 2 times a day, PRN as needed for anxiety, # 20 tablet, 1 Refills, Maintenance, 05/16/19 23:11:00 EDT, Tablet, [facility] #[id number], 162.56, cm, 05/03/19 16:30:00 EST, Height, 72.3, kg, 09/26/18 16:01:00 EDT, Dry... Start Date: 05/16/19 Status: Ordered losartan 100 mg oral tablet 1 tablet, By Mouth, Daily, # 30 tablet, 5 Refills, Maintenance, 09/24/20 16:00:00 EDT, [facility] #[id number], 162, cm, 09/19/20 15:59:00 EDT, Height, 82.1, kg, 06/08/20 17:25:00 EDT, Dry Weight Start Date: 09/24/20 Status: Ordered meclizine 25 mg oral tablet 1 tablet = 25 mg, By Mouth, 2 times a day, # 30 tablet, 1 Refills, Maintenance, 03/30/19 15:49:00 EST, Tablet, [facility] #[id number], 162.56, cm, 03/08/19 14:34:00 EST, Height, 72.3, [...] each, 0 Refills, Maintenance, 06/04/20 16:46:00 EDT, [facility] #[id number], OK to sub for any gallon prep, [...] 12:51:00 EDT, Aerosol, Route to Pharmacy Electronically, [id number], [facility] #[id number], 1... Start Date: 06/07/20 Status: Ordered Senna 8.6 mg oral tablet 1-3 tablet, By Mouth, Daily, for constipation, # 90 tablet, Refills 5, Tot. Refills 5, Maintenance,03/26/20 15:25:00 EST, Route to Pharmacy Electronically, [facility] #[id number] Tablet, 162.56, cm, 03/21/20 15:01:00 EST, Height, 77, kg, ... Start Date: 03/26/20 Status: Ordered Spacer for inhalers Spacer for inhalers, See Instructions, # 1 each, Refills 0, Tot. Refills 0, Maintenance, Use with inhalers as directed. Korean., 06/07/19 15:07:00 EDT, Compound, 162.56, cm, 05/03/19 16:30:00 EST, Height, 72.3, kg, 09/26/18 16:01:00 EDT, Dry Weight Start Date: 06/07/19 Status: Ordered Sublocade 100 mg/0.5 mL subcutaneous solution, extended release = 100 mg, Subcutaneous Infusion, Every 28 days, [facility], # 1 each, 0 Refills, Maintenance, [...] 1 Refills, Maintenance, 03/02/20 19:47:00 EST, Tablet, [facility] #[id number], 162.56, cm, 01/04/20 9:40:00 ES... Start Date: 03/02/20 Status: Ordered Zofran 4 mg oral tablet 1 tablet = 4 mg, By Mouth, 2 times a day, PRN Nausea & Vomiting, # 10 tablet, 0 Refills, Maintenance, 09/19/20 18:37:00 EDT, Tablet, [facility] #[id number], 162, cm, 09/19/20 15:59:00 EDT, Height, 82.1, [...] 2016 Active Migraine(Confirmed) Active Opioid dependence(Confirmed) Active *[id number] Care Partn April Saavedra(Confirmed) Active Health care [...] tolerance, and QD need over. 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
--- OUTSIDE RECORDS SUMMARY | 2022-12-13 21:27 | XMS_ITS | Continuity of Care Document ---
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 Name Role Phone Kahlil Sun MD Primary Care Physician [place] [facility] [place] - [place]/20/19 [facility] [address] [place] [address]- [facility] Attending Physician: Renato Dougherty MD, I Allergies, Adverse Reactions, Alerts Substance Reaction Severity Status amitriptyline 1 Mental status Active Ziagen Active Levaquin 2 Active aspirin 3 facial edema and sob Severe Active nevirapine Active 1dreaming, near halliucinations 2itchy, nervous 3facial edema and sob Immunizations Given and Recorded Vaccine Date Status Refusal Reason influenza virus vaccine, inactivated 1 12/17/18 Re corded influenza virus vaccine, inactivated 2 12/19/17 Re corded influenza virus vaccine, inactivated 12/09/15 Give n influenza virus vaccine, inactivated 12/04/14 Give n influenza virus vaccine, inactivated 12/14/13 Give n influenza virus vaccine, inactivated 12/15/12 Give n influenza virus vaccine, inactivated 3 11/18/11 Gi feliciano influenza virus vaccine, inactivated 11/20/09 Give n influenza virus vaccine, inactivated 4 01/30/04 Gi feliciano hepatitis B adult vaccine 08/23/18 Given hepatitis B adult vaccine 08/23/18 Given hepatitis B adult vaccine 5 08/29/01 Given hepatitis B adult vaccine 6 03/10/01 Given hepatitis B adult vaccine 7 10/28/00 Given Afluria (oldterm) 10/5/17 Given pneumococcal 13-valent vaccine 8 03/24/12 Given Adacel (Tdap) (oldterm) 05/16/09 Given Hepatitis B Vaccine (old term) 9 04/11/09 Given Hepatitis B Vaccine (old term) 10 12/22/07 Given Hepatitis B Vaccine (old term) 12/28/06 Given Hepatitis B Vaccine (old term) 11 09/27/01 Given Influenza Vaccine (oldterm) 12 12/27/08 Given Influenza Vaccine (oldterm) 13 12/28/06 Given Influenza Inactive (IM) (oldterm) 14 11/29/08 Give n Influenza Virus Vaccine (oldterm) 12/22/07 Given diphtheria-tetanus toxoids (DT) 15 02/16/07 Given Hepatitis A Vaccine (oldterm) 12/28/06 Given Hepatitis A Vaccine (oldterm) 16 10/27/05 Given Pneumococcal Poly (PPV23) (oldterm) 11/10/06 Given Hepatitis A Adult Vaccine 17 04/14/05 Given tetanus-diphtheria toxoids (Td) 03/10/01 Given 1Result Comment: pharmacy 2Location History: [facility] 3Admin Note: vis 08/31/11 4Admin Note: ADMIN.BY RN 5Admin Note: Admin. by RN 6Admin Note: Admin. by RN 7Admin Note: Admin. by RN 8Admin Note: vis 06/15/15 9Admin Note: dose #6 (3rd in 2nd series) 10Admin Note: dose #5 11Admin Note: #3 12Admin Note: LITO sanofi-pasteur 13Admin Note: ADMIN LILLIAN CONTRERAS 14Admin Note: BY LEXI Agudelo 15Admin Note: not Adacel 16Admin Note: #2 17Admin Note: Admin. by RN Medications 10,000 lux [...] day, # 10 tablet, 5 Refills, Maintenance, 05/12/18 14:28:20 EDT Start Date: 05/12/18 Stop Date: 06/11/18 Status: Ordered albuterol 0.083% inhalation solution 3 mL = 2.5 mg, Inhalation, Every 6 hours, PRN Wheezing/Shortness of Breath, # 60 each, 0 Refills, Maintenance, 06/07/19 14:59:00 EDT, Solution, [facility] #[id number], 162.56, cm, 05/03/19 16:30:00 EST, Height, 72.3, kg, 09/26/18 16:01:00 EDT, Start Date: 06/07/19 Status: Ordered Bactrim 400 mg-80 mg oral tablet 1 tablet, By Mouth, 2 times a day, # 14 tablet, 0 Refills, Acute 12/09/19 15:46:00 EDT, 06/13/19 15:46:00 EDT, Tablet, [facility] #[id number], 1 tablet By Mouth 2 times a day, 162.56, cm, 05/03/19 16:30:00 EST, Height, 72.3, kg, 09/26/18 16:01:00... Start Date: 06/13/19 Stop Date: 12/09/19 Status: Ordered Biktarvy oral tablet 1 tablet, By Mouth, Daily, # 30 tablet, 11 Refills, Maintenance, 08/23/18 16:59:15 EDT, 1 tablet ByMouth Daily Start Date: 08/23/18 Status: Ordered Blood Pressure Meter Blood Pressure Meter, See Instructions, # 1 each, Refills 0, Tot. Refills 0, Maintenance, Use for, 07/11/18 16:11:47 EDT, Compound Start Date: 07/11/18 Status: Ordered buprenorphine-naloxone 2 mg-0.5 mg sublingual film 0.25 each, Sublingual, Daily, Dino [id number], # 4 film, 0 Refills, Maintenance, 05/16/19 23:15:00 EDT, [facility] #[id number], Partial fill on request., 0.25 each Sublingual Daily,Instr:Coke [id number], 162.56, cm, 05/03/19 16:30:00 EST, Hei... Start Date: 05/16/19 Status: Ordered cetirizine 10 mg oral tablet 1 tablet = 10 mg, By Mouth, Daily, For allergies., # 30 tablet, 0 Refills, Maintenance, 06/07/19 14:58:00 EDT, Tablet, [facility] #[id number], 162.56, cm, 05/03/19 16:30:00 EST, Height, 72.3, kg, 09/26/18 16:01:00 EDT, Dry Weight Start Date: 06/07/19 Status: Ordered Flonase 50 mcg/inh nasal spray 2 sprays, Nares, Both, Daily in AM, # 16 Gm, 0 Refills, Maintenance, 06/07/19 14:55:00 EDT, [place], [facility] #[id number], 2 sprays Nares, Both Daily in AM,x30 days, 162.56, cm, 05/03/19 16:30:00 EST, Height, 72.3, kg, 09/26/18 16:01:00 EDT, Dry... Start Date: 06/07/19 Stop Date: 07/07/19 Status: Ordered Flovent HFA 44 mcg/inh inhalation aerosol 1 puffs, Inhalation, 2 times a day, # 1 each, 5 Refills, Maintenance, 02/02/19 13:13:00 EST, Aerosol, 162.56, cm, 09/26/18 16:01:28 EDT, Height, 72.3, kg, 09/26/18 16:01:28 EDT, Dry Weight Start Date: 02/02/19 Status: Ordered Home Blood Pressure Monitor See Instructions, # 1 each, Maintenance, covering for [facility] Blood pressure monitor neededto monitor blood pressure DX: hypertension, 07/11/18 17:28:42 EDT, Compound Start Date: 07/11/18 Status: Ordered humidifier humidifier, See Instructions, # 1 each, Refills 0, Tot. Refills 0, Maintenance, use as directed forchronic sinusitis J32, 04/09/17 14:21:37 EST, Compound Start Date: 04/09/17 Status: Ordered hydrochlorothiazide 12.5 mg oral tablet 1 tablet = 12.5 mg, By Mouth, Daily, # 30 tablet, 2 Refills, Maintenance, 05/29/19 21:12:00 EDT, Tablet, [facility] #[id number], 30 day supply preferred for present, 162.56, cm, 05/03/19 16:30:00 EST, Height, 72.3, kg, 09/26/18 16:01:00 EDT, Dry... Start Date: 05/29/19 Status: Ordered Lexapro 5 mg oral tablet 1 tablet = 5 mg, By Mouth, Daily, per psych, # 30 tablet, 0 Refills, Maintenance, 09/22/17 11:41:54EDT, Tablet Start Date: 09/22/17 Status: Ordered Liletta 52 mg intrauterine device See Instructions, 1 each Once, # 1 each, 0 Refills, Soft Stop, 07/11/18 16:17:37 EDT Start Date: 07/11/18 Status: Ordered loratadine 10 mg oral tablet 10 mg, 1, tablet, By Mouth, Daily, PRN, # 30 tablet, Refills 3, Tot. Refills 3, Maintenance, allergy/itch, 05/12/18 14:45:33 EDT, Route to Pharmacy Electronically, [id number], [facility] Start Date: 05/12/18 Status: Ordered LORazepam 0.5 mg oral tablet 0.5 tablet = 0.25 mg, By Mouth, 2 times a day, PRN as needed for anxiety, # 20 tablet, 1 Refills, Maintenance, 05/16/19 23:11:00 EDT, Tablet, [facility] #[id number], 162.56, cm, 05/03/19 16:30:00 EST, Height, 72.3, kg, 09/26/18 16:01:00 EDT, Dry... Start Date: 05/16/19 Status: Ordered losartan 50 mg oral tablet 1 tablet = 50 mg, By Mouth, Daily, # 30 tablet, 5 Refills, Maintenance, 04/28/19 0:32:00 EST, Tablet, [facility] #[id number], 162.56, cm, 04/24/19 16:09:00 EST, Height, 72.3, kg, 09/26/18 16:01:00 EDT, Dry Weight Start Date: 04/28/19 Status: Ordered meclizine 25 mg oral tablet 1 tablet = 25 mg, By Mouth, 2 times a day, # 30 tablet, 1 Refills, Maintenance, 03/30/19 15:49:00 EST, Tablet, [facility] #[id number], 162.56, cm, 03/08/19 14:34:00 EST, Height, 72.3, kg, 09/26/18 16:01:00 EDT, Dry Weight Start Date: 03/30/19 Status: Ordered pantoprazole 20 mg oral delayed release tablet 1 tablet = 20 mg, By Mouth, Daily in AM, take 30 minutes before first meal, # 30 tablet, 5 Refills,Maintenance, 02/16/19 8:53:00 EST, CR Tablet, 162.56, cm, 02/16/19 7:54:00 EST, Height, 72.3, kg, 09/26/18 16:01:00 EDT, Dry Weight Start Date: 02/16/19 Status: Ordered ProAir HFA 90 mcg/inh inhalation aerosol with adapter 2, puffs, Inhalation, Every 4 hours, PRN, use with spacer chamber, # 1 each, Refills 0, Tot. Refills 0, Maintenance, 06/07/19 15:00:00 EDT, Aerosol, Route to Pharmacy Electronically, [id number], [facility] #[id number], 1... Start Date: 06/07/19 Status: Ordered Senna 8.6 mg oral tablet 1-3 tablet, By Mouth, Daily, for constipation, # 90 tablet, Refills 5, Tot. Refills 5, Maintenance,02/17/18 15:12:45 EST, Route to Pharmacy Electronically, [id number], [facility] Tablet Start Date: 02/17/18 Status: Ordered Spacer for inhalers Spacer for inhalers, See Instructions, # 1 each, Refills 0, Tot. Refills 0, Maintenance, Use with inhalers as directed. Tamazight., 06/07/19 15:07:00 EDT, Compound, 162.56, cm, 05/03/19 16:30:00 EST, Height, 72.3, kg, 09/26/18 16:01:00 EDT, Dry Weight Start Date: 06/07/19 Status: Ordered SUMAtriptan 25 mg oral tablet 1 tablet = 25 mg, By Mouth, Daily, PRN as needed for migraine headache, may repeat dose after 2 hours up to a maximum of 2, # 6 tablet, 1 Refills, Maintenance, 04/18/19 13:31:00 EST, Tablet, [facility] #[id number], 162.56, cm, 03/08/19 14:34:00 E... Start Date: 04/18/19 Status: Ordered Zofran 4 mg oral tablet 1 tablet = 4 mg, By Mouth, 2 times a day, PRN Nausea & Vomiting, # 20 tablet, 0 Refills, Maintenance, 05/24/19 22:41:00 EDT, Tablet, [facility] #[id number], 162.56, cm, 05/03/19 16:30:00 EST, Height, 72.3, kg, 09/26/18 16:01:00 EDT, Dry Weight Start Date: 05/24/19 Status: Ordered zolpidem 5 mg oral tablet [...] 2016 Active Migraine(Confirmed) Active Opioid dependence(Confirmed) Active *[id number]-[facility] Parthuang Saavedra(Confirmed) Active Health care maintenance(Confirmed) Active Routine [...] tolerance, and QD need over. 2genotype 02/02: [id number] is only mutation detected 3death of sister, caring for mother w/ dementia 4repeat screening colonoscopy in 2020 Social History Social History Type Response Smoking Status Former smoker, quit more than 30 days ago entered on: 05/24/18 Sex
--- OUTSIDE RECORDS SUMMARY | 2022-12-13 21:27 | XMS_ITS | Continuity of Care Document ---
Author Name Unknown Organization [facility] Address [address] [place] [id number] Care Team Providers Care Concrete Mason Name Role Phone Kahlil Sun MD Primary Care Physician [phone] Encounter [facility] Date(s): 12/17/20 - 01/16/21 [facility] [address] [place] [phone] [place] Allergies, Adverse Reactions, Alerts Substance Reaction [...] toxoids (Td) 03/10/01 Given 1Result Comment: #2, [facility] 2Result Comment: [facility] 3Result Comment: [facility] 4Result Comment: pharmacy 5Location History: [facility] 6Admin Note: vis 08/31/11 7Admin Note: ADMIN.BY RN 8Admin Note: Admin. by RN 9Admin Note: Admin. by RN 10Admin Note: Admin. 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 Start Date: 09/12/20 Status: Ordered acyclovir 400 mg oral tablet 1 tablet = 400 mg, By Mouth, 2 times a day, # 10 tablet, 5 Refills, Maintenance, 01/08/21 18:41:00 EST, [facility] #[id number], 162, cm, 12/17/20 23:19:00 EDT, Height, 86.3, kg, 09/29/20 15:30:00 EDT, Dry Weight Start Date: 01/08/21 Stop Date: 02/07/21 Status: Ordered Albuterol (Eqv-ProAir HFA) 90 mcg/inh inhalation aerosol 2 puffs, Inhalation, Every 4 hours, PRN NEEDED FOR WHEEZING/SHORTNESS OF BREATH, USE WITH SPACERCHAMBER, # 8.5 Gm, 5 Refills, [facility] #[id number], 16, INHALE 2 PUFFS INTO LUNGS EVERY 4 HOURS NEEDED FOR WHEEZING/SHORTNESS OF BREATH. USE... Start Date: 11/13/20 Status: Ordered albuterol 0.083% inhalation solution 3 mL = 2.5 mg, Inhalation, Every 6 hours, PRN Wheezing/Shortness of Breath, # 60 each, 0 Refills, Maintenance, 06/07/20 12:51:00 EDT, Solution, [facility] #[id number], 162.56, cm, 05/23/20 14:31:00 EDT, Height, 77, [...] tablet, 3 Refills, Maintenance, 03/02/20 19:50:00 EST, [facility] #[id number], 1 tablet By Mouth Daily, 162.56, cm, 01/04/20 9:40:00 EST, Height, 72.3, kg, 09/26/18 16:01:00 EDT, Dry Weight Start Date: 03/02/20 Status: Ordered Blood Pressure Meter Blood Pressure Meter, See Instructions, # 1 each, Refills 0, Tot. Refills 0, Maintenance, Use for, 07/11/18 16:11:47 EDT, Compound Start Date: 07/11/18 Status: Ordered buprenorphine-naloxone 12 mg-3 mg sublingual film 1 film, Sublingual, Daily, [place] [id number]. dissolve under the tongue. Due 01/15/2021, # 7 film, 0 Refills, Maintenance, 01/15/21 16:57:00 EST, Film, [facility] #[id number], Partial fill upon patient request if the prescription is for a vinod... Start Date: 01/15/21 Stop Date: 01/22/21 Status: Ordered cetirizine 10 mg oral tablet 1 tablet = 10 mg, By Mouth, Daily, For allergies., # 30 tablet, 2 Refills, Maintenance, 06/29/19 16:02:00 EDT, Tablet, [facility] #[id number], 162.56, cm, 05/03/19 16:30:00 EST, Height, 72.3, kg, 09/26/18 16:01:00 EDT, Dry Weight Start Date: 06/29/19 Status: Ordered cloNIDine 0.1 mg oral tablet 0.1 mg, 1, tablet, By Mouth, 3 times a day, as needed for anxiety, # 25 tablet, Refills 0, Tot. Refills 0, Maintenance, 10/10/19 21:36:00 EDT, Route to Pharmacy Electronically, [facility] #[id number], 162.56, cm, 10/09/19 10:36:00 EDT, Height, 72... Start Date: 10/10/19 Status: Ordered escitalopram 5 mg oral tablet 1 tablet = 5 mg, Daily, Maintenance, 12/17/20 22:33:00 EDT Start Date: 12/17/20 Status: Ordered Flonase 50 mcg/inh nasal spray 2 sprays, Nares, Both, Daily in AM, # 16 Gm, 5 Refills, Maintenance, 07/19/19 15:19:00 EDT, [place], [facility] #[id number], 2 sprays Nares, Both Daily in AM,x30 days, 162.56, cm, 05/03/19 16:30:00 EST, Height, 72.3, kg, 09/26/18 16:01:00 EDT, Dry... Start Date: 07/19/19 Stop Date: 01/15/20 Status: Ordered Flovent HFA 44 mcg/inh inhalation aerosol 1 puffs, Inhalation, 2 times a day, # 1 each, 5 Refills, Maintenance, 06/07/20 12:52:00 EDT, Aerosol, [facility] #[id number], 162.56, cm, 05/23/20 14:31:00 EDT, Height, 77, kg, 03/21/20 15:04:00EST, Dry Weight Start Date: 06/07/20 Status: Ordered fluconazole 150 mg oral tablet 1 tablet = 150 mg, By Mouth, Once, # 1 tablet, 1 Refills, Soft Stop, 01/08/21 19:37:00 EST, Tablet,[facility] #[id number], 162, cm, 12/17/20 23:19:00 EDT, Height, 86.3, [...] Compound, 163,... Start Date: 06/17/20 Status: Ordered Glucose Monitor See Instructions, PRN, [...] # 1 each, Maintenance, covering for [facility] Blood pressure monitor neededto monitor blood pressure [...] 3 Refills, Maintenance, 03/02/20 19:48:00 EST, Tablet, [facility] #[id number], 30 day supply preferred for present, 162.56, [...] 05/12/18 14:45:33 EDT, Route to Pharmacy Electronically, [id number], [facility] Start Date: 05/12/18 Status: Ordered LORazepam 0.5 mg oral tablet 0.5 tablet = 0.25 mg, By Mouth, 2 times a day, PRN as needed for anxiety, # 20 tablet, 1 Refills, Maintenance, 05/16/19 23:11:00 EDT, Tablet, [facility] #[id number], 162.56, cm, 05/03/19 16:30:00 EST, Height, 72.3, kg, 09/26/18 16:01:00 EDT, Dry... Start Date: 05/16/19 Status: Ordered losartan 100 mg oral tablet 1 tablet, By Mouth, Daily, # 30 tablet, 5 Refills, Maintenance, 09/24/20 16:00:00 EDT, [facility] #[id number], 162, cm, 09/19/20 15:59:00 EDT, Height, 82.1, kg, 06/08/20 17:25:00 EDT, Dry Weight Start Date: 09/24/20 Status: Ordered meclizine 25 mg oral tablet 1 tablet = 25 mg, By Mouth, 2 times a day, # 30 tablet, 1 Refills, Maintenance, 03/30/19 15:49:00 EST, Tablet, [facility] #[id number], 162.56, cm, 03/08/19 14:34:00 EST, Height, 72.3, kg, 09/26/18 16:01:00 EDT, Dry Weight Start Date: 03/30/19 Status: Ordered Narcan 4 mg/0.1 mL nasal spray = 4 mg, Inhalation, Once, # 2 each, 1 Refills, Soft Stop, 10/29/20 12:23:00 EDT, [facility] #[id number], Partial fill upon patient request if the prescription is for a schedule II opioid drug., 162, cm, 09/29/20 15:30:00 EDT, Height, 86.3, kg, 08... Start Date: 10/29/20 Status: Ordered pantoprazole 20 mg oral delayed release tablet See Instructions, TAKE 1 TABLET BY MOUTH DAILY IN THE MORNING TAKE 30 MINUTES BEFORE FIRST MEAL, # 30 tablet, 2 Refills, 162, cm, 10/29/20 17:08:00 EDT, Height, 86.3, kg, 09/29/20 15:30:00 EDT, Dry Weight Start Date: 12/10/20 Status: Ordered PEG-3350 with Electrolytes (Eqv-GoLYTELY) oral powder for reconstitution See Instructions, used as directed, # 1 each, 0 Refills, Maintenance, 06/04/20 16:46:00 EDT, [facility] #[id number], OK to sub for any gallon prep, used as directed, 162.56, cm, 05/23/20 14:31:00 EDT, Height, 77, kg, 03/21/20 15:04:00 EST, Dry We... Start Date: 06/04/20 Status: Ordered Senna 8.6 mg oral tablet 1-3 tablet, By Mouth, Daily, for constipation, # 90 tablet, Refills 5, Tot. Refills 5, Maintenance,03/26/20 15:25:00 EST, Route to Pharmacy Electronically, [facility] #[id number] Tablet, 162.56, cm, 03/21/20 15:01:00 EST, Height, 77, kg, 2... Start Date: 03/26/20 Status: Ordered Spacer for inhalers Spacer for inhalers, See Instructions, # 1 each, Refills 0, Tot. Refills 0, Maintenance, Dx: asthma. Use with inhalers as directed., 01/08/21 19:38:00 EST, Compound, 162, cm, 12/17/20 23:19:00 EDT, Height, 86.3, kg, 09/29/20 15:30:00 EDT, Dry Weight Start Date: 01/08/21 Status: Ordered Sublocade 100 mg/0.5 mL subcutaneous solution, extended release = 100 mg, Subcutaneous Infusion, Every 28 days, # 1 each, 2 Refills, Maintenance, 12/17/20 21:41:00EDT, [facility], Partial fill upon patient request if the prescription is for a schedule II opioid drug., 162, cm, 12/17/20 15:09:00 EDT, Height, 86.3, kg... Start Date: 12/17/20 Status: Ordered SUMAtriptan 25 mg oral tablet 1 tablet = 25 mg, By Mouth, Daily, PRN as needed for migraine headache, may repeat dose after 2 hours up to a maximum of 2, # 6 tablet, 1 Refills, Maintenance, 03/02/20 19:47:00 EST, Tablet, [facility] #[id number], 162.56, cm, 01/04/20 9:40:00 ES... Start Date: 03/02/20 Status: Ordered Zofran 4 mg oral tablet 1 tablet = 4 mg, By Mouth, 2 times a day, PRN Nausea & Vomiting, # 10 tablet, 0 Refills, Maintenance, 12/01/20 20:26:00 EDT, Tablet, [facility] #[id number], 162, cm, 10/29/20 17:08:00 EDT, Height, 86.3, kg, 09/29/20 15:30:00 EDT, Dry Weight Start Date: 12/01/20 Status: Ordered zolpidem 5 mg oral tablet 0 Refills, Maintenance, 01/22/18 21:33:47 EST Start Date: 01/22/18 Status: Ordered Problem List Condition Effective Dates Status Health Status Inform ant Abdominal bloating(Confirmed) Active Acne(Confirmed) Active HIV-AIDS-. ART hx in 8 note.(Confirmed) , 2 1994 Active Ascites(Confirmed) Active Asthma(Confirmed) Active Cervicovaginal cytology: Low grade squamous intraepithelial lesion(Confirmed) Active Lumbosacral pain, chronic(Confirmed) Active Cirrhosis of liver, hx of he patitis C treated 2013(Confirmed) Active Straining with stools(Confirmed) Active Gastropathy(Confirmed) Active Acid reflux(Confirmed) Active H/O heartburn(Confirmed) Active H/O nausea(Confirmed) Active Hypertension(Confirmed) Active Insomnia(Confirmed) 2016 Active Migraine(Confirmed) Active Opioid dependence(Confirmed) Active *[phone] Care Partn er April Saavedra(Confirmed) Active Health [...] tolerance, and QD need over. 2genotype 02/02: [id number] is only mutation detected 3death of sister, caring for mother w/ dementia 4repeat screening colonoscopy in 2020 Social History Social History Type Response Smoking Status Former smoker, quit more than 30 days ago entered on: 10/29/20 Sex
--- OUTSIDE RECORDS SUMMARY | 2022-12-13 21:27 | XMS_ITS | Continuity of Care Document ---
Author Name Unknown Organization [facility] Address [address] [address]- Care Team Providers Care Prefabricated Houses Trimmer Name Role Phone Kahlil Sun MD Primary Care Physician [place] [facility] [place] 09[place]21 [facility] [address] [address]- Allergies, Adverse Reactions, Alerts Substance Reaction Severity [...] 12/17/18 Re corded influenza virus vaccine, inactivated 12/19/17 Re corded influenza virus vaccine, inactivated [...] events reported or observed. 2Result Comment: #2, [place] 3Result Comment: [place] 4Result Comment: pharmacy 5Location History: [facility] 6Admin [...] tablet, 5 Refills, Maintenance, 01/08/21 18:41:00 EST, [facility] #[id number], 162, cm, 12/17/20 23:19:00 EDT, Height, 86.3, kg, 09/29/20 15:30:00 EDT, Dry Weight Start Date: 01/08/21 Stop Date: 02/07/21 Status: Ordered Albuterol (Eqv-ProAir HFA) 90 mcg/inh inhalation aerosol 2 puffs, Inhalation, Every 4 hours, PRN NEEDED FOR WHEEZING/SHORTNESS OF BREATH, USE WITH SPACERCHAMBER, # 8.5 Gm, 5 Refills, [facility] #[id number], 16, INHALE 2 PUFFS INTO LUNGS EVERY 4 HOURS NEEDED FOR WHEEZING/SHORTNESS OF BREATH. USE... Start Date: 11/13/20 Status: Ordered albuterol 0.083% inhalation solution 3 mL = 2.5 mg, Inhalation, Every 6 hours, PRN Wheezing/Shortness of Breath, # 60 each, 0 Refills, Maintenance, 06/07/20 12:51:00 EDT, Solution, [facility] #[id number], 162.56, cm, 05/23/20 14:31:00 EDT, Height, 77, [...] tablet, 3 Refills, Maintenance, 06/13/21 22:19:00 EDT, [facility] #[id number], 1 tablet By Mouth Daily, 162, cm, [...] 1 Refills, Maintenance, 07/10/21 18:35:00 EDT, Tablet, [facility] #06805, Partial fill upon patient request if the prescription is for a schedule II opioid drug., 162, cm, 06/19/21 15:40:00 EDT... Start Date: 07/10/21 Status: Ordered cetirizine 10 mg oral tablet 1 tablet = 10 mg, By Mouth, Daily, For allergies., # 30 tablet, 2 Refills, Maintenance, 06/29/19 16:02:00 EDT, Tablet, [facility] #06014, 162.56, cm, 05/03/19 16:30:00 EST, Height, 72.3, kg, 09/26/18 16:01:00 EDT, Dry Weight Start Date: 06/29/19 Status: Ordered cloNIDine 0.1 mg oral tablet 0.1 mg, 1, tablet, By Mouth, 3 times a day, as needed for anxiety, # 25 tablet, Refills 0, Tot. Refills 0, Maintenance, 10/10/19 21:36:00 EDT, Route to Pharmacy Electronically, [facility] #[id number], 162.56, cm, 10/09/19 10:36:00 EDT, Height, 72... Start Date: 10/10/19 Status: Ordered diclofenac 1% topical gel = 2 Gm, Topically, 4 times a day, PRN for pain, not to exceed: 10 gm/day, # 100 Gm, 1 Refills, Maintenance, 05/29/21 16:52:00 EDT, Gel, [facility], Partial fill upon patient request if the prescription is for a schedule II opioid... Start Date: 05/29/21 Status: Ordered Dulera 200 mcg-5 mcg/inh inhalation aerosol 2 puffs, Inhalation, 2 times a day, # 1 each, 3 Refills, Maintenance, 01/28/21 16:44:00 EST, Aerosol, [facility], STOP FLOVENT, 2 puffs Inhalation 2 times a day,x30 days, 162, cm,01/28/21 16:02:00 EST, Height, 86.3, kg, 09/29/20 1... Start Date: 01/28/21 Stop Date: 05/28/21 Status: Ordered escitalopram 10 mg oral tablet 1 tablet = 10 mg, By Mouth, Daily, # 30 tablet, 11 Refills, Maintenance, 07/31/21 17:50:00 EDT, Tablet, [facility] #[id number], Partial fill upon patient request if the [...] Gm, 5 Refills, Maintenance, 07/19/19 15:19:00 EDT, [place], [facility] #[id number], 2 sprays Nares, Both Daily in AM,x30 days, 162.56, cm, 05/03/19 16:30:00 EST, Height, 72.3, kg, 09/26/18 16:01:00 EDT, Dry... Start Date: 07/19/19 Stop Date: 01/15/20 Status: Ordered fluconazole 150 mg oral tablet 1 tablet = 150 mg, By Mouth, Once, # 1 tablet, 1 Refills, Soft Stop, 01/08/21 19:37:00 EST, [id number], [facility], cm, 12/17/20 23:19:00 EDT, Height, 86.3, [...] 04/24/21 12:37:00 EST, Route to Pharmacy Electronically, [facility] #[id number], STOP HCTZ, 162, cm, 03/24/21 18:41:00 EST, [...] Instructions, # 1 each, Maintenance[facility] Blood pressure monitor neededto monitor blood [...] 05/12/18 14:45:33 EDT, Route to Pharmacy Electronically, [id number], [facility] Start Date: 05/12/18 Status: Ordered LORazepam 0.5 mg oral tablet 0.5 tablet = 0.25 mg, By Mouth, 2 times a day, PRN as needed for anxiety, # 20 tablet, 1 Refills, Maintenance, 05/16/19 23:11:00 EDT, Tablet, [facility] #[id number], 162.56, cm, 05/03/19 16:30:00 EST, Height, 72.3, kg, 09/26/18 16:01:00 EDT, Dry... Start Date: 05/16/19 Status: Ordered losartan 100 mg oral tablet 1 tablet, By Mouth, Daily, # 30 tablet, 2 Refills, [facility] #[id number], 162, cm, 06/19/21 15:40:00 EDT, Height, 86.3, kg, 09/29/20 15:30:00 EDT, Dry Weight Start Date: 07/10/21 Status: Ordered meclizine 25 mg oral tablet 1 tablet = 25 mg, By Mouth, 2 times a day, # 30 tablet, 1 Refills, Maintenance, 07/10/21 17:25:00 EDT, Tablet, [facility] #[id number], 162, cm, 06/19/21 15:40:00 EDT, Height, 86.3, kg, 09/29/20 15:30:00 EDT, Dry Weight Start Date: 07/10/21 Status: Ordered multivitamin with iron Multiple Vitamins with Iron oral tablet 1 tablet, By Mouth, Daily, # 30 tablet, 11 Refills, Maintenance, 09/06/21 19:08:00 EDT, Tablet, [facility] #[id number], 1 tablet By Mouth Daily, 162, cm, 07/31/21 16:00:00 EDT, Height, 86.3, kg,09/29/20 15:30:00 EDT, Dry Weight Start Date: 09/06/21 Status: Ordered Narcan 4 mg/0.1 mL nasal spray = 4 mg, Inhalation, Once, # 2 each, 1 Refills, Soft Stop, 10/29/20 12:23:00 EDT, [facility] #[id number], Partial fill upon patient request if the prescription is for a schedule II opioid drug., 162, cm, 09/29/20 15:30:00 EDT, Height, 86.3, kg, 08... Start Date: 10/29/20 Status: Ordered pantoprazole 20 mg oral delayed release tablet See Instructions, TAKE 1 TABLET BY MOUTH DAILY IN THE MORNING TAKE 30 MINUTES BEFORE FIRST MEAL, # 30 tablet, 2 Refills, 08/28/21 16:00:00 EDT, 162, cm, 07/31/21 16:00:00 EDT, Height, 86.3, kg, 09/29/20 15:30:00 EDT, Dry Weight Start Date: 08/28/21 Status: Ordered Paxlovid 150 mg-100 mg oral tablet See Instructions, 300mg nirmatrelvir (two 150mg tablets) with 100mg ritonavir (one tablet). All 3 tablets taken together twice daily for 5 days, (better tolerated with food), # 30 tablet, 0 Refills, Acute 09/09/21 20:22:00 EDT, 09/04/21 20:21:00 EDT,... Start Date: 09/04/21 Stop Date: 09/09/21 Status: Ordered PEG-3350 with Electrolytes (Eqv-GoLYTELY) oral powder for reconstitution See Instructions, used as directed, # 1 each, 0 Refills, Maintenance, 06/04/20 16:46:00 EDT, [facility] #[id number], OK to sub for any gallon prep, used as directed, 162.56, cm, 05/23/20 14:31:00 EDT, Height, 77, kg, 03/21/20 15:04:00 EST, Dry We... Start Date: 06/04/20 Status: Ordered predniSONE 50 mg oral tablet 1 tablet = 50 mg, By Mouth, Daily, # 7 tablet, 0 Refills, Maintenance, 01/28/21 16:37:00 EST, Tablet, [facility], Partial fill upon patient request if the prescription is for a schedule II opioid drug., 162, cm, 01/28/21 16:02:00 E... Start Date: 01/28/21 Stop Date: 02/04/21 Status: Ordered Senna 8.6 mg oral tablet 1-3 tablet, By Mouth, Daily, for constipation, # 90 tablet, Refills 5, Tot. Refills 5, Maintenance,03/26/20 15:25:00 EST, Route to Pharmacy Electronically, [facility] #[id number] Tablet, 162.56, cm, 03/21/20 15:01:00 EST, Height, [...] 5 Refills, Maintenance, 04/24/21 12:36:00 EST, Tablet, [facility] #[id number], STOP HCTZ, 162, cm, 03/24/21 18:41:00 EST, [...] under the tongue increase in dose Iveth [id number] coveringfor Dino due on/after 08/22/2021, # 35 film, 0 Refills, Maintenance, 08/22/21 9:27:00 EDT, Film,[facility], 2.5 film Subli... Start Date: 08/22/21 Stop Date: 09/05/21 Status: Ordered SUMAtriptan 25 mg oral tablet 1 tablet = 25 mg, By Mouth, Daily, PRN as needed for migraine headache, may repeat dose after 2 hours up to a maximum of 2, # 6 tablet, 1 Refills, Maintenance, 03/02/20 19:47:00 EST, Tablet, [facility] #[id number], 162.56, cm, 01/04/20 9:40:00 ES... Start Date: 03/02/20 Status: Ordered Zofran 4 mg oral tablet 1 tablet = 4 mg, By Mouth, Daily, PRN Nausea & Vomiting, # 10 tablet, 1 Refills, Maintenance, 08/18/21 22:17:00 EDT, Tablet, [facility] #[id number], 162, cm, 07/31/21 16:00:00 EDT, Height, 86.3, kg, 09/29/20 15:30:00 EDT, Dry Weight Start Date: 08/18/21 Status: Ordered zolpidem 5 mg oral tablet 1 tablet = 5 mg, By Mouth, Daily at bedtime, PRN as needed for sleep, # 30 tablet, 1 Refills, Maintenance, 09/04/21 20:17:00 EDT, [facility] #[id number], 162, cm, 07/31/21 16:00:00 EDT, Height, 86.3, kg, 09/29/20 15:30:00 EDT, Dry Weight Start Date: 09/04/21 Status: Ordered Problem List Condition Effective Dates Status Health Status Inform ant Abdominal bloating(Confirmed) Active Acne(Confirmed) Active HIV-AIDS-. ART hx in 8 note.(Confirmed) 1, 2 1994 Active Asthma(Confirmed) Active Cervicovaginal cytology: Low grade squamous intraepithelial lesion(Confirmed) Active Lumbosacral pain, chronic(Confirmed) Active Cirrhosis of liver, hx of he patitis C treated 2013(Confirmed) Active Straining with stools(Confirmed) Active Gastropathy(Confirmed) Active Acid reflux(Confirmed) Active H/O heartburn(Confirmed) Active H/O nausea(Confirmed) Active Hypertension(Confirmed) Active Insomnia(Confirmed) 2016 Active Iron deficiency anemia(Confirmed) Active Migraine(Confirmed) Active Obese class I(Confirmed) Active Opioid dependence(Confirmed) Active *[id number] Care Partn er April Saavedra(Confirmed) Active Health care maintenance(Confirmed) Active Portal hypertensive gastropathy(Confirmed) 10/1/12 Active Psychological stress(Confirmed) 3 Active TMJ - click(Confirmed) Active Tubular adenoma of colon(Confirmed) 4 03/30/17 Active Varicose veins of both lower extremities(Confirmed) Active Vitamin D deficiency(Confirmed) 2010 Active 1CBV + NFV on/off/on-suppressed, switch 04/08 to Truvada + ATV 500mg for QD adherence, switch 03/10 toTruvada + raltegravir for upperGI tolerance, and QD need over. 2genotype 02/02: [id number] is only mutation detected 3death of sister, caring for mother w/ dementia 4repeat screening colonoscopy in 2020 Social History Social History Type Response Smoking Status Former smoker, quit more than 30 days ago entered on: 10/29/20 Sex
--- OUTSIDE RECORDS SUMMARY | 2022-12-13 21:27 | XMS_ITS | Continuity of Care Document ---
Author Name Unknown Organization [facility] Address [address] [place] [address]- Care Team Providers Care Blurb Writer Name Role Phone Kahlil Sun MD Primary Care Physician [place] [facility] [place]/07/[place] - 06/14/19 [facility] [address] [place] [address]- [facility] Attending Physician: Renato Dougherty MD, I [...] adult vaccine 7 10/28/00 Given Afluria (oldterm) 12/03/16 Given pneumococcal 13-valent vaccine 8 03/24/12 Given [...] 0 Refills, Maintenance, 06/07/19 14:59:00 EDT, Solution, [facility] #[id number], 162.56, cm, 05/03/19 16:30:00 EST, Height, 72.3, kg, 09/26/18 16:01:00 EDT, Start Date: 06/07/19 Status: Ordered Bactrim 400 mg-80 mg oral tablet 1 tablet, By Mouth, 2 times a day, # 14 tablet, 0 Refills, Acute 12/09/19 15:46:00 EDT, 06/13/19 15:46:00 EDT, Tablet, [facility] #[id number], 1 tablet By Mouth 2 times a [...] sublingual film 0.25 each, Sublingual, Daily, Dino [id number], # 4 film, 0 Refills, Maintenance, 05/16/19 23:15:00 EDT, [facility] #[id number], Partial fill on request., 0.25 each Sublingual Daily,Instr:[place] [id number], 162.56, cm, 05/03/19 16:30:00 EST, Hei... Start Date: 05/16/19 Status: Ordered cetirizine 10 mg oral tablet 1 tablet = 10 mg, By Mouth, Daily, For allergies., # 30 tablet, 0 Refills, Maintenance, 06/07/19 14:58:00 EDT, Tablet, [facility] #30062, 162.56, cm, 05/03/19 16:30:00 EST, Height, 72.3, kg, 09/26/18 16:01:00 EDT, Dry Weight Start Date: 06/07/19 Status: Ordered Flonase 50 mcg/inh nasal spray 2 sprays, Nares, Both, Daily in AM, # 16 Gm, 0 Refills, Maintenance, 06/07/19 14:55:00 EDT, [place], [facility] #[id number], 2 sprays Nares, Both Daily in AM,x30 [...] Instructions, # 1 each, Maintenance, covering for [facility] Blood pressure monitor neededto monitor blood [...] 2 Refills, Maintenance, 05/29/19 21:12:00 EDT, Tablet, [facility] #[id number], 30 day supply preferred for present, 162.56, [...] 05/12/18 14:45:33 EDT, Route to Pharmacy Electronically, [id number], [facility] Start Date: 05/12/18 Status: Ordered LORazepam 0.5 mg oral tablet 0.5 tablet = 0.25 mg, By Mouth, 2 times a day, PRN as needed for anxiety, # 20 tablet, 1 Refills, Maintenance, 05/16/19 23:11:00 EDT, Tablet, [facility] #[id number], 162.56, cm, 05/03/19 16:30:00 EST, Height, 72.3, kg, 09/26/18 16:01:00 EDT, Dry... Start Date: 05/16/19 Status: Ordered losartan 50 mg oral tablet 1 tablet = 50 mg, By Mouth, Daily, # 30 tablet, 5 Refills, Maintenance, 04/28/19 0:32:00 EST, Tablet, [facility] #61727, 162.56, cm, 04/24/19 16:09:00 EST, Height, 72.3, kg, 09/26/18 16:01:00 EDT, Dry Weight Start Date: 04/28/19 Status: Ordered meclizine 25 mg oral tablet 1 tablet = 25 mg, By Mouth, 2 times a day, # 30 tablet, 1 Refills, Maintenance, 03/30/19 15:49:00 EST, Tablet, [facility] #74604, 162.56, cm, 03/08/19 14:34:00 EST, Height, 72.3, [...] 15:00:00 EDT, Aerosol, Route to Pharmacy Electronically, [id number], [facility] #[id number], 1... Start Date: 06/07/19 Status: Ordered Senna 8.6 mg oral tablet 1-3 tablet, By Mouth, Daily, for constipation, # 90 tablet, Refills 5, Tot. Refills 5, Maintenance,02/17/18 15:12:45 EST, Route to Pharmacy Electronically, [id number], [facility] Tablet Start Date: 02/17/18 Status: Ordered Spacer for inhalers Spacer for inhalers, See Instructions, # 1 each, Refills 0, Tot. Refills 0, Maintenance, Use with inhalers as directed. Lebanese., 06/07/19 15:07:00 EDT, Compound, 162.56, cm, 03/04/20 16:30:00 EST, Height, 72.3, kg, 09/26/18 16:01:00 EDT, Dry Weight Start Date: 06/07/19 Status: Ordered SUMAtriptan 25 mg oral tablet 1 tablet = 25 mg, By Mouth, Daily, PRN as needed for migraine headache, may repeat dose after 2 hours up to a maximum of 2, # 6 tablet, 1 Refills, Maintenance, 04/18/19 13:31:00 EST, Tablet, [facility] #[id number], 162.56, cm, 03/08/19 14:34:00 E... Start Date: 04/18/19 Status: Ordered Zofran 4 mg oral tablet 1 tablet = 4 mg, By Mouth, 2 times a day, PRN Nausea & Vomiting, # 20 tablet, 0 Refills, Maintenance, 05/24/19 22:41:00 EDT, Tablet, [facility] #67175, 162.56, cm, 05/03/19 16:30:00 EST, Height, 72.3, [...] 2016 Active Migraine(Confirmed) Active Opioid dependence(Confirmed) Active *[id number]-[facility] Partn renee Saavedra(Confirmed) Active Health care maintenance(Confirmed) [...] tolerance, and QD need over. 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
--- OUTSIDE RECORDS SUMMARY | 2022-12-13 21:27 | XMS_ITS | Continuity of Care Document ---
Author Name Unknown Organization [facility] Address [address] [place] [address]- Care Team Providers Care Electro Mechanical Technologist Name Role Phone Kahlil Sun MD Primary Care Physician [phone] Encounter [facility] [place] Date(s): 04/17/22 - 05/17/22 [facility] [address]- [place] Allergies, Adverse Reactions, Alerts Substance Reaction [...] events reported or observed. 2Result Comment: #2, [facility] 3Result Comment: [facility] 4Result Comment: pharmacy 5Location History: [facility] 6Admin Note: vis 08/31/11 7Admin Note: ADMIN.BY RN 8Result Comment: [facility] 9Admin Note: Admin. by RN 10Admin Note: Admin. by RN 11Admin Note: Admin. 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 Start Date: 12/05/21 Status: Ordered acyclovir 400 mg oral tablet 1 tablet = 400 mg, By Mouth, 2 times a day, # 10 tablet, 5 Refills, Maintenance, 01/08/21 18:41:00 EST, [facility] #98210, 162, cm, 12/17/20 23:19:00 EDT, Height, 86.3, kg, 09/29/20 15:30:00 EDT, Dry Weight Start Date: 01/08/21 Stop Date: 02/07/21 Status: Ordered Albuterol (Eqv-ProAir HFA) 90 mcg/inh inhalation aerosol 2 puffs, Inhalation, Every 4 hours, PRN NEEDED FOR WHEEZING/SHORTNESS OF BREATH, USE WITH SPACERCHAMBER, # 8.5 Gm, 5 Refills, [facility] #05103, 16, INHALE 2 PUFFS INTO LUNGS EVERY 4 HOURS NEEDED FOR WHEEZING/SHORTNESS OF BREATH. USE... Start Date: 11/13/20 Status: Ordered albuterol 0.083% inhalation solution 3 mL = 2.5 mg, Inhalation, Every 6 hours, PRN Wheezing/Shortness of Breath, # 60 each, 0 Refills, Maintenance, 06/07/20 12:51:00 EDT, Solution, [facility] #88147, 162.56, cm, 05/23/20 14:31:00 EDT, Height, 77, [...] 01/04/22 19:11:00 EST, Route to Pharmacy Electronically, [facility] #[id number], 162.56, cm, 11/0... Start Date: 01/04/22 Status: Ordered Biktarvy oral tablet 1 tablet, By Mouth, Daily, # 30 tablet, 12 Refills, Maintenance, 04/17/22 7:54:00 EST, [facility] #86550, 1 tablet By Mouth Daily, 162.56, cm, 04/16/22 16:00:00 EST, Height, 87.6, kg, 10/24/21 8:00:00 EDT, Dry Weight Start Date: 04/17/22 Status: Ordered Blood Pressure Meter Blood Pressure Meter, See Instructions, # 1 each, Refills 0, Tot. Refills 0, Maintenance, Use for, 07/11/18 16:11:47 EDT, Compound Start Date: 07/11/18 Status: Ordered cetirizine 10 mg oral tablet 1 tablet = 10 mg, By Mouth, Daily, # 30 tablet, 1 Refills, Maintenance, 07/10/21 18:35:00 EDT, Tablet, [facility] #76150, Partial fill upon patient request if the prescription is for a schedule II opioid drug., 162, cm, 06/19/21 15:40:00 EDT... Start Date: 07/10/21 Status: Ordered cloNIDine 0.1 mg oral tablet 1, tablet, By Mouth, 3 times a day, PRN, # 270 tablet, Refills 0, Tot. Refills 0, Maintenance, NEEDED FOR ANXIETY, 05/13/22 16:45:00 EDT, Route to Pharmacy Electronically, [facility] #[id number], 162.56, cm, 05/07/22 12:32:00 EST, Height, 87.6... Start Date: 05/13/22 Status: Ordered Colace Clear 50 mg oral capsule 1 capsule = 50 mg, By Mouth, 2 times a day, PRN as needed for constipation, # 60 capsule, 0 Refills, Maintenance, 12/05/21 15:09:00 EDT, [facility] #65663, Partial fill upon patient requestif the prescription is for a schedule II opioid nhi... Start Date: 12/05/21 Status: Ordered diclofenac 1% topical gel = 2 Gm, Topically, 4 times a day, PRN for pain, not to exceed: 10 gm/day, # 100 Gm, 1 Refills, Maintenance, 05/29/21 16:52:00 EDT, Gel, [facility], Partial fill upon patient request if the prescription is for a schedule II opioid... Start Date: 05/29/21 Status: Ordered Dulera 200 mcg-5 mcg/inh inhalation aerosol 2 puffs, Inhalation, 2 times a day, # 1 each, 3 Refills, Maintenance, 01/28/21 16:44:00 EST, Aerosol, [facility], STOP FLOVENT, 2 puffs Inhalation 2 times a day,x30 days, 162, cm,01/28/21 16:02:00 EST, Height, 86.3, kg, 09/29/20 1... Start Date: 01/28/21 Stop Date: 05/28/21 Status: Ordered escitalopram 10 mg oral tablet 1 tablet = 10 mg, By Mouth, Daily, # 30 tablet, 11 Refills, Maintenance, 04/16/22 16:59:00 EST, Tablet, [facility] #57880, Partial fill upon patient request if the prescription is for a schedule II opioid drug., 162.56, cm, 04/16/22 16:00:00... Start Date: 04/16/22 Status: Ordered finger pulse oximeter finger pulse [...] Gm, 5 Refills, Maintenance, 07/19/19 15:19:00 EDT, [place], [facility] #12776, 2 sprays Nares, Both Daily in AM,x30 [...] Replace Required Details, Route to Pharmacy Electronically, [facility] #[id number], 162.56, cm,... Start Date: 11/27/21 Status: Ordered gabapentin 300 mg oral capsule See Instructions, 1 capsule By Mouth, repeat in 8 hrs, then repeat in another 12 hrs, then repeat in another 24 hrs., # 4 capsule, Refills 1, Tot. Refills 1, Maintenance, 04/19/22 19:39:00 EST, Instructions Replace Required Details, Route to Pharmacy... Start Date: 04/19/22 Status: Ordered gabapentin 300 mg oral capsule See Instructions, 1 capsule By Mouth tonight every 12 hrs x 1 day, and once on next day., # 4 capsule, Refills 1, Tot. Refills 1, Maintenance, 04/16/22 17:05:00 EST, Instructions Replace Required Details, Route to Pharmacy Electronically, [facility] Start Date: 04/16/22 Status: Ordered Glucose Monitor See Instructions, PRN, [...] # 1 each, Maintenance[facility] pressure monitor neededto monitor blood pressure DX: hypertension, 07/11/18 17:28:42 EDT, Compound Start Date: 07/11/18 Status: Ordered humidifier humidifier, See Instructions, # 1 each, Refills 0, Tot. Refills 0, Maintenance, use as directed forchronic sinusitis J32, 04/09/17 14:21:37 EST, Compound Start Date: 04/09/17 Status: Ordered losartan 100 mg oral tablet 1 tablet, By Mouth, Daily, # 30 tablet, 5 Refills, [facility] #29998, 162, cm, 10/09/21 16:19:00 EDT, Height, 86.3, kg, 09/29/20 15:30:00 EDT, Dry Weight Start Date: 10/20/21 Status: Ordered meclizine 25 mg oral tablet 1 tablet = 25 mg, By Mouth, 2 times a day, # 30 tablet, 1 Refills, Maintenance, 07/10/21 17:25:00 EDT, Tablet, [facility] #68951, 162, cm, 06/19/21 15:40:00 EDT, Height, 86.3, kg, 09/29/20 15:30:00 EDT, Dry Weight Start Date: 07/10/21 Status: Ordered multivitamin with iron Multiple Vitamins with Iron oral tablet 1 tablet, By Mouth, Daily, # 30 tablet, 11 Refills, Maintenance, 04/17/22 7:51:00 EST, Tablet, [facility] #43429, 1 tablet By Mouth Daily, 162.56, cm, 04/16/22 16:00:00 EST, Height, 87.6, kg, 10/24/21 8:00:00 EDT, Dry Weight Start Date: 04/17/22 Status: Ordered Narcan 4 mg/0.1 mL nasal spray = 4 mg, Inhalation, Once, # 2 each, 1 Refills, Soft Stop, 10/29/20 12:23:00 EDT, [facility] #63529, Partial fill upon patient request if the prescription is for a schedule II opioid drug., 162, cm, 09/29/20 15:30:00 EDT, Height, 86.3, kg, 08... Start Date: 10/29/20 Status: Ordered ondansetron 4 mg oral tablet 1 tablet = 4 mg, By Mouth, Daily, PRN Nausea & Vomiting, # 10 tablet, 3 Refills, Maintenance, 04/16/22 17:07:00 EST, [facility] #21273, 162.56, cm, 04/16/22 16:00:00 EST, Height, 87.6, kg, 10/24/21 8:00:00 EDT, Dry Weight Start Date: 04/16/22 Status: Ordered pantoprazole 20 mg oral delayed [...] each, 0 Refills, Maintenance, 06/04/20 16:46:00 EDT, [facility] #97894, OK to sub for any gallon prep, used as directed, 162.56, cm, 05/23/20 14:31:00 EDT, Height, 77, kg, 03/21/20 15:04:00 EST, Dry We... Start Date: 06/04/20 Status: Ordered Senna 8.6 mg oral tablet 1-3 tablet, By Mouth, Daily, for constipation, # 90 tablet, Refills 5, Tot. Refills 5, Maintenance,03/26/20 15:25:00 EST, Route to Pharmacy Electronically, [facility] #[id number] Tablet, 162.56, cm, 03/21/20 15:01:00 EST, Height, [...] tablet, 5 Refills, Maintenance, 04/17/22 7:53:00 EST, [facility] #19481, 162.56, cm, 04/16/22 16:00:00 EST, Height, 87.6, kg, 10/24/21 8:00:00 EDT, Dry Weight Start Date: 04/17/22 Status: Ordered Suboxone 8 mg-2 mg Sublingual Film 2 film, Sublingual, Daily, dissolve under the tongue may fill less due 05/12/2022, # 14 film, 0 Refills, Maintenance, 05/12/22 2:02:00 EDT, Film, [facility], 2 film Sublingual Daily,x7 days,Instr:dissolve under the tongue; may fi... Start Date: 05/12/22 Stop Date: 05/19/22 Status: Ordered Suboxone 8 mg-2 mg Sublingual Film 2.5 film, Sublingual, Daily, dissolve under the tongue increase in dose Iveth [id number] coveringfor Dino due on/after 08/22/2021, # 35 film, 0 Refills, Maintenance, 08/22/21 9:27:00 EDT, Film,[facility], 2.5 film Subli... Start Date: 08/22/21 Stop Date: 09/05/21 Status: Ordered SUMAtriptan 25 mg oral tablet 1 tablet = 25 mg, By Mouth, Daily, PRN as needed for migraine headache, may repeat dose after 2 hours up to a maximum of 2, # 6 tablet, 1 Refills, Maintenance, 03/02/20 19:47:00 EST, Tablet, [facility] #93784, 162.56, cm, 01/04/20 9:40:00 ES... 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 is only mutation detected 3death of sister, caring for mother w/ dementia 4repeat screening colonoscopy in 2020 Social History Social History Type Response Smoking Status Former smoker, quit more than 30 days ago entered on: 12/05/21 Sex Patient Care team information Care Team Personnel Name: Kahlil Sun MD Position: [facility] Primary Care Physician Member Role: PCP Address: Address: [address] [place] [address] Name: Sharri Prince Position: [facility] PCO Associate Professional Member Role: Lifetime Consulting Provider Care Team Related Persons Name: SHANITA MENDOZA Address: [address] [place] [address] Name: SHANITA MENDOZA Address: home [id number] Name: ULICES PEARSON Name: ULICES ESPARZA Address: [place] [address] Name: LALA LI
--- OUTSIDE RECORDS SUMMARY | 2022-12-13 21:27 | XMS_ITS | Continuity of Care Document ---
Author Name Unknown Organization [facility] Address Unknown Care Team Providers Care Cartographic Drafter Name Role Phone Kahlil Sun MD Primary Care Physician [phone] [place] [facility] [place] [facility] Attending Physician: Kahlil Sun MD Admitting [...] events reported or observed. 2Result Comment: #2, [facility] 3Result Comment: [facility] 4Result Comment: pharmacy 5Location History: [facility] 6Admin Note: vis 08/31/11 7Admin Note: ADMIN.BY RN 8Result Comment: [facility] 9Admin Note: Admin. by RN 10Admin Note: Admin. by RN 11Admin Note: Admin. 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 Start Date: 09/12/20 Status: Ordered acyclovir 400 mg oral tablet 1 tablet = 400 mg, By Mouth, 2 times a day, # 10 tablet, 5 Refills, Maintenance, 01/08/21 18:41:00 EST, [facility] #[id number], 162, cm, 12/17/20 23:19:00 EDT, Height, 86.3, kg, 09/29/20 15:30:00 EDT, Dry Weight Start Date: 01/08/21 Stop Date: 02/07/21 Status: Ordered Albuterol (Eqv-ProAir HFA) 90 mcg/inh inhalation aerosol 2 puffs, Inhalation, Every 4 hours, PRN NEEDED FOR WHEEZING/SHORTNESS OF BREATH, USE WITH SPACERCHAMBER, # 8.5 Gm, 5 Refills, [facility] #[id number], 16, INHALE 2 PUFFS INTO LUNGS EVERY 4 HOURS NEEDED FOR WHEEZING/SHORTNESS OF BREATH. USE... Start Date: 11/13/20 Status: Ordered albuterol 0.083% inhalation solution 3 mL = 2.5 mg, Inhalation, Every 6 hours, PRN Wheezing/Shortness of Breath, # 60 each, 0 Refills, Maintenance, 06/07/20 12:51:00 EDT, Solution, [email or web address] #25510, 162.56, cm, 05/23/20 14:31:00 EDT, Height, 77, [...] tablet, 3 Refills, Maintenance, 03/02/20 19:50:00 EST, [email or web address] #23640, 1 tablet By Mouth Daily, 162.56, cm, [...] 2 Refills, Maintenance, 06/29/19 16:02:00 EDT, Tablet, [facility] #[id number], 162.56, cm, 05/03/19 16:30:00 EST, Height, 72.3, kg, 09/26/18 16:01:00 EDT, Dry Weight Start Date: 06/29/19 Status: Ordered cloNIDine 0.1 mg oral tablet 0.1 mg, 1, tablet, By Mouth, 3 times a day, as needed for anxiety, # 25 tablet, Refills 0, Tot. Refills 0, Maintenance, 10/10/19 21:36:00 EDT, Route to Pharmacy Electronically, [facility] #[id number], 162.56, cm, 10/09/19 10:36:00 EDT, Height, 72... Start Date: 10/10/19 Status: Ordered Dulera 200 mcg-5 mcg/inh inhalation aerosol 2 puffs, Inhalation, 2 times a day, # 1 each, 3 Refills, Maintenance, 01/28/21 16:44:00 EST, Aerosol, [facility], STOP FLOVENT, 2 puffs Inhalation [...] Gm, 5 Refills, Maintenance, 07/19/19 15:19:00 EDT, [place], [email or web address] #55264, 2 sprays Nares, Both Daily in AM,x30 days, 162.56, cm, 05/03/19 16:30:00 EST, Height, 72.3, kg, 09/26/18 16:01:00 EDT, Dry... Start Date: 07/19/19 Stop Date: 01/15/20 Status: Ordered fluconazole 150 mg oral tablet 1 tablet = 150 mg, By Mouth, Once, # 1 tablet, 1 Refills, Soft Stop, 01/08/21 19:37:00 EST, Tablet,[email or web address] #00481, 162, cm, 12/17/20 23:19:00 EDT, Height, 86.3, [...] Wednesday and Wednesday, # 15 tablet, Refills 4, Tot. Refills 4, Maintenance, 01/28/21 16:28:00 EST, Route to Pharmacy Electronically, [facility], STOP HCTZ, 162, cm, 01/28/21 16:02:00 EST, He... Start Date: 01/28/21 Stop Date: 06/27/21 Status: Ordered Glucose Monitor See Instructions, PRN, [...] # 1 each, Maintenance, covering for Sharri Lares Blood pressure monitor neededto monitor blood pressure [...] 05/12/18 14:45:33 EDT, Route to Pharmacy Electronically, [id number], [facility] Start Date: 05/12/18 Status: Ordered LORazepam 0.5 mg oral tablet 0.5 tablet = 0.25 mg, By Mouth, 2 times a day, PRN as needed for anxiety, # 20 tablet, 1 Refills, Maintenance, 05/16/19 23:11:00 EDT, Tablet, [facility] #[id number], 162.56, cm, 05/03/19 16:30:00 EST, Height, 72.3, kg, 09/26/18 16:01:00 EDT, Dry... Start Date: 05/16/19 Status: Ordered losartan 100 mg oral tablet 1 tablet, By Mouth, Daily, # 30 tablet, 5 Refills, Maintenance, 09/24/20 16:00:00 EDT, [email or web address] #63419, 162, cm, 09/19/20 15:59:00 EDT, Height, 82.1, kg, 06/08/20 17:25:00 EDT, Dry Weight Start Date: 09/24/20 Status: Ordered meclizine 25 mg oral tablet 1 tablet = 25 mg, By Mouth, 2 times a day, # 30 tablet, 1 Refills, Maintenance, 03/30/19 15:49:00 EST, Tablet, [email or web address] #22297, 162.56, cm, 03/08/19 14:34:00 EST, Height, 72.3, kg, 09/26/18 16:01:00 EDT, Dry Weight Start Date: 03/30/19 Status: Ordered Narcan 4 mg/0.1 mL nasal spray = 4 mg, Inhalation, Once, # 2 each, 1 Refills, Soft Stop, 10/29/20 12:23:00 EDT, [email or web address] #[id number], Partial fill upon patient request if the [...] each, 0 Refills, Maintenance, 06/04/20 16:46:00 EDT, [email or web address] #64963, OK to sub for any gallon prep, used as directed, 162.56, cm, 05/23/20 14:31:00 EDT, Height, 77, kg, 03/21/20 15:04:00 EST, Dry We... Start Date: 06/04/20 Status: Ordered predniSONE 50 mg oral tablet 1 tablet = 50 mg, By Mouth, Daily, # 7 tablet, 0 Refills, Maintenance, 01/28/21 16:37:00 EST, Tablet, [facility], Partial fill upon patient request if the prescription is for a schedule II opioid drug., 162, cm, 01/28/21 16:02:00 E... Start Date: 01/28/21 Stop Date: 02/04/21 Status: Ordered Senna 8.6 mg oral tablet 1-3 tablet, By Mouth, Daily, for constipation, # 90 tablet, Refills 5, Tot. Refills 5, Maintenance,03/26/20 15:25:00 EST, Route to Pharmacy Electronically, [email or web address] #[id number] Tablet, 162.56, cm, 03/21/20 15:01:00 EST, Height, [...] mg, By Mouth, Daily, # 30 tablet, 4 Refills, Maintenance, 01/28/21 16:29:00 EST, Tablet, [facility], STOP HCTZ, 162, cm, 01/28/21 16:02:00 EST, Height, 86.3, kg, 09/29/20 15:30:00 EDT, Dry Weight Start Date: 01/28/21 Stop Date: 06/27/21 Status: Ordered Sublocade 100 mg/0.5 mL subcutaneous solution, extended release = 100 mg, Subcutaneous Infusion, Every 28 days, # 1 each, 2 Refills, Maintenance, 12/17/20 21:41:00[facility], Partial fill upon patient request if the prescription is for a schedule II opioid drug., 162, cm, 12/17/20 15:09:00 EDT, Height, 86.3, kg... Start Date: 12/17/20 Status: Ordered Suboxone 8 mg-2 mg Sublingual Film 2 film, Sublingual, Daily, dissolve under the tongue increase in dose 01/22/2021 [id number], # 60 film, 0 Refills, Maintenance, 01/22/21 13:49:00 EST, Film, [facility] #[id number], Partial fill upon patient request if the prescription is for a... Start Date: 01/22/21 Status: Ordered SUMAtriptan 25 mg oral tablet 1 tablet = 25 mg, By Mouth, Daily, PRN as needed for migraine headache, may repeat dose after 2 hours up to a maximum of 2, # 6 tablet, 1 Refills, Maintenance, 03/02/20 19:47:00 EST, Tablet, [facility] #23052, 162.56, cm, 01/04/20 9:40:00 ES... Start Date: 03/02/20 Status: Ordered Zofran 4 mg oral tablet 1 tablet = 4 mg, By Mouth, 2 times a day, PRN Nausea & Vomiting, # 10 tablet, 0 Refills, Maintenance, 12/01/20 20:26:00 EDT, Tablet, [facility] #26379, 162, cm, 10/29/20 17:08:00 EDT, Height, 86.3, [...] Insomnia(Confirmed) 2016 Active Migraine(Confirmed) Active Obese class II(Confirmed) Active Opioid dependence(Confirmed) Active *[id number] Care Partn er April Saavedra(Confirmed) Active Health [...] tolerance, and QD need over. 2genotype 02/02: [id number] is only mutation detected 3death of sister, caring for mother w/ dementia 4repeat screening colonoscopy in 2020 Social History Social History Type Response Smoking Status Former smoker, quit more than 30 days ago entered on: 10/29/20 Sex
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
--- OUTSIDE RECORDS SUMMARY | 2022-12-13 21:27 | XMS_ITS | Continuity of Care Document ---
Author Name Unknown Organization [facility] Address [address] [place] [address]- Care Team Providers Care Sap Basis Name Role Phone Kahlil Sun MD Primary Care Physician Encounter [facility] [place] Date(s): 08/13/20 - 09/12/20 [facility] [address] [place] [address]- Allergies, Adverse Reactions, Alerts Substance Reaction Severity [...] toxoids (Td) 03/10/01 Given 1Result Comment: #2, [facility] 2Result Comment: [facility] 3Result Comment: [facility] 4Result Comment: pharmacy 5Location History: [facility] 6Admin Note: vis 08/31/11 7Admin Note: ADMIN.BY [...] 1 Refills, Maintenance, 09/12/20 16:18:00EDT, CR Tablet, [facility] #[id number], Partial fill upon patient request if the prescription is for a schedule II opioid drug., 162, cm, 09/12/20... Start Date: 09/12/20 Status: Ordered acyclovir 400 mg oral tablet 1 tablet = 400 mg, By Mouth, 2 times a day, # 10 tablet, 5 Refills, Maintenance, 01/26/20 16:20:00 EST, [facility], 162.56, cm, 10/09/19 10:36:00 EDT, Height, 72.3, kg, 09/26/18 16:01:00 EDT, Dry Weight Start Date: 01/26/20 Stop Date: 02/25/20 Status: Ordered albuterol 0.083% inhalation solution 3 mL = 2.5 mg, Inhalation, Every 6 hours, PRN Wheezing/Shortness of Breath, # 60 each, 0 Refills, Maintenance, 06/07/20 12:51:00 EDT, Solution, [facility] #[id number], 162.56, cm, 05/23/20 14:31:00 EDT, Height, 77, [...] tablet, 3 Refills, Maintenance, 03/02/20 19:50:00 EST, [facility] #[id number], 1 tablet By Mouth Daily, 162.56, cm, 01/04/20 9:40:00 EST, Height, 72.3, kg, 09/26/18 16:01:00 EDT, Dry Weight Start Date: 03/02/20 Status: Ordered Blood Pressure Meter Blood Pressure Meter, See Instructions, # 1 each, Refills 0, Tot. Refills 0, Maintenance, Use for, 07/11/18 16:11:47 EDT, Compound Start Date: 07/11/18 Status: Ordered buprenorphine-naloxone 2 mg-0.5 mg sublingual film 0.25 each, Sublingual, Daily, Dino [id number], # 8 film, 0 Refills, Maintenance, 12/15/19 19:00:00 EDT, [facility] #[id number], Partial fill on request., 0.25 each Sublingual Daily,Instr:Dino [id number], 162.56, cm, 10/09/19 10:36:00 EDT, Hei... Start Date: 12/15/19 Status: Ordered buprenorphine-naloxone 8 mg-2 mg sublingual film 1 film, Sublingual, Daily, dissolve under the tongue, # 7 film, 0 Refills, Maintenance, 09/12/20 15:38:00 EDT, Film, [facility] #05297, Partial fill upon patient request if the prescriptionis for a schedule II opioid drug., 1 film Sublingua... Start Date: 09/12/20 Stop Date: 09/19/20 Status: Ordered cetirizine 10 mg oral tablet 1 tablet = 10 mg, By Mouth, Daily, For allergies., # 30 tablet, 2 Refills, Maintenance, 06/29/19 16:02:00 EDT, Tablet, [facility] #[id number], 162.56, cm, 05/03/19 16:30:00 EST, Height, 72.3, kg, 09/26/18 16:01:00 EDT, Dry Weight Start Date: 06/29/19 Status: Ordered cloNIDine 0.1 mg oral tablet 0.1 mg, 1, tablet, By Mouth, 3 times a day, as needed for anxiety, # 25 tablet, Refills 0, Tot. Refills 0, Maintenance, 10/10/19 21:36:00 EDT, Route to Pharmacy Electronically, [facility] #[id number], 162.56, cm, 10/09/19 10:36:00 EDT, Height, 72... [...] 5 Refills, Maintenance, 07/19/19 15:19:00 EDT, [place], [facility] #[id number], 2 sprays Nares, Both Daily in AM,x30 days, 162.56, cm, 05/03/19 16:30:00 EST, Height, 72.3, kg, 09/26/18 16:01:00 EDT, Dry... Start Date: 07/19/19 Stop Date: 01/15/20 Status: Ordered Flovent HFA 44 mcg/inh inhalation aerosol 1 puffs, Inhalation, 2 times a day, # 1 each, 5 Refills, Maintenance, 06/07/20 12:52:00 EDT, Aerosol, [facility] #[id number], 162.56, cm, 05/23/20 14:31:00 EDT, Height, 77, [...] # 1 each, [facility] Blood pressure monitor neededto monitor blood pressure [...] 3 Refills, Maintenance, 03/02/20 19:48:00 EST, Tablet, [facility] #24906, 30 day supply preferred for present, 162.56, [...] 05/12/18 14:45:33 EDT, Route to Pharmacy Electronically, [id number], [facility] Start Date: 05/12/18 Status: Ordered LORazepam 0.5 mg oral tablet 0.5 tablet = 0.25 mg, By Mouth, 2 times a day, PRN as needed for anxiety, # 20 tablet, 1 Refills, Maintenance, 05/16/19 23:11:00 EDT, Tablet, [facility] #[id number], 162.56, cm, 05/03/19 16:30:00 EST, Height, 72.3, kg, 09/26/18 16:01:00 EDT, Dry... Start Date: 05/16/19 Status: Ordered losartan 100 mg oral tablet 1 tablet = 100 mg, By Mouth, Daily, # 30 tablet, 2 Refills, Maintenance, 06/26/20 8:47:00 EDT, Tablet, [facility] #[id number], 162, cm, 06/19/20 8:04:00 EDT, Height, 82.1, kg, 06/08/20 17:25:00 EDT, Dry Weight Start Date: 06/26/20 Status: Ordered meclizine 25 mg oral tablet 1 tablet = 25 mg, By Mouth, 2 times a day, # 30 tablet, 1 Refills, Maintenance, 03/30/19 15:49:00 EST, Tablet, [facility] #[id number], 162.56, cm, 03/08/19 14:34:00 EST, Height, 72.3, [...] each, 0 Refills, Maintenance, 06/04/20 16:46:00 EDT, [facility] #[id number], OK to sub for any gallon prep, [...] 12:51:00 EDT, Aerosol, Route to Pharmacy Electronically, [id number], [facility] #[id number], 1... Start Date: 06/07/20 Status: Ordered Senna 8.6 mg oral tablet 1-3 tablet, By Mouth, Daily, for constipation, # 90 tablet, Refills 5, Tot. Refills 5, Maintenance,03/26/20 15:25:00 EST, Route to Pharmacy Electronically, [facility] #[id number] Tablet, 162.56, cm, 03/21/20 15:01:00 EST, Height, 77, kg, ... Start Date: 03/26/20 Status: Ordered Spacer for inhalers Spacer for inhalers, See Instructions, # 1 each, Refills 0, Tot. Refills 0, Maintenance, Use with inhalers as directed. [place]., 06/07/19 15:07:00 EDT, Compound, 162.56, cm, 05/03/19 16:30:00 EST, Height, 72.3, kg, 09/26/18 16:01:00 EDT, Dry Weight Start Date: 06/07/19 Status: Ordered Sublocade 100 mg/0.5 mL subcutaneous solution, extended release = 100 mg, Subcutaneous Infusion, Every 28 days, [facility], # 1 each, 0 Refills, Maintenance, [...] 1 Refills, Maintenance, 03/02/20 19:47:00 EST, Tablet, [facility] #[id number], 162.56, cm, 01/04/20 9:40:00 ES... Start Date: 03/02/20 Status: Ordered Zofran 4 mg oral tablet 1 tablet = 4 mg, By Mouth, 2 times a day, PRN Nausea & Vomiting, # 10 tablet, 0 Refills, Maintenance, 05/04/20 17:09:00 EST, Tablet, [facility] #31607, 162.56, cm, 05/03/20 9:23:00 EST,Height, 77, kg, [...] 2016 Active Migraine(Confirmed) Active Opioid dependence(Confirmed) Active *[id number] Care Partn er April Saavedra(Confirmed) Active Health [...] tolerance, and QD need over. 2genotype 02/02: [id number] is only mutation detected 3death of sister, caring for mother w/ dementia 4repeat screening colonoscopy in 2020 Social History Social History Type Response Smoking Status Former smoker, quit more than 30 days ago entered on: 05/24/18 Sex
--- OUTSIDE RECORDS SUMMARY | 2022-12-13 21:28 | XMS_ITS | Continuity of Care Document ---
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 2Result Comment: #2, [facility] 3Result Comment: [facility] 4Result Comment: pharmacy 5Location History[facility] [...] tablet, 5 Refills, Maintenance, 01/08/21 18:41:00 EST, [facility] #[id number], 162, cm, 12/17/20 23:19:00 EDT, Height, 86.3, kg, 09/29/20 15:30:00 EDT, Dry Weight Start Date: 01/08/21 Stop Date: 02/07/21 Status: Ordered Albuterol (Eqv-ProAir HFA) 90 mcg/inh inhalation aerosol 2 puffs, Inhalation, Every 4 hours, PRN NEEDED FOR WHEEZING/SHORTNESS OF BREATH, USE WITH SPACERCHAMBER, # 8.5 Gm, 5 Refills, [facility] #[id number], 16, INHALE 2 PUFFS INTO LUNGS EVERY 4 HOURS NEEDED FOR WHEEZING/SHORTNESS OF BREATH. USE... Start Date: 11/13/20 Status: Ordered albuterol 0.083% inhalation solution 3 mL = 2.5 mg, Inhalation, Every 6 hours, PRN Wheezing/Shortness of Breath, # 60 each, 0 Refills, Maintenance, 06/07/20 12:51:00 EDT, Solution, [facility] #[id number], 162.56, cm, 05/23/20 14:31:00 EDT, Height, 77, [...] 2 Refills, Maintenance, 08/30/22 11:09:00 EDT, Gel, [facility] #[id number], 1 applic... Start Date: 08/30/22 Status: Ordered benzoyl peroxide 2.5% topical gel 1 application, Topically, 2 times a day, keep away from eyes and mucous membranes. clean affected area before application. Start daily and increase to twice a day if tolerated., # 60 Gm, 3 Refills, Maintenance, 09/08/22 22:51:00 EDT, [facility]... Start Date: 09/08/22 Status: Ordered Biktarvy oral tablet 1 tablet, By Mouth, Daily, # 30 tablet, 12 Refills, Maintenance, 04/17/22 7:54:00 EST, [facility] #[id number], 1 tablet By Mouth Daily, 162.56, cm, 04/16/22 16:00:00 EST, Height, 87.6, kg, 10/24/21 8:00:00 EDT, Dry Weight Start Date: 04/17/22 Status: Ordered Biktarvy oral tablet See Instructions, TAKE 1 TABLET BY MOUTH DAILY, # 90 tablet, 0 Refills, Maintenance, 07/15/22 13:50:00 EDT, [facility] #[id number], 90, TAKE 1 TABLET BY MOUTH DAILY, [...] 1 Refills, Maintenance, 07/10/21 18:35:00 EDT, Tablet, [facility] #[id number], Partial fill upon patient request if the [...] 08/12/22 15:06:00 EDT, Route to Pharmacy Electronically, [facility] #[id number], 162.56, cm, 07/30/22 10:55:00 EDT, Height, 79.... Start Date: 08/12/22 Status: Ordered Colace Clear 50 mg oral capsule 1 capsule = 50 mg, By Mouth, 2 times a day, PRN as needed for constipation, # 60 capsule, 0 Refills, Maintenance, 12/05/21 15:09:00 EDT, [facility] #[id number], Partial fill upon patient requestif the prescription is for a schedule II opioid nhi... Start Date: 12/05/21 Status: Ordered diclofenac 1% topical gel = 2 Gm, Topically, 4 times a day, PRN for pain, not to exceed: 10 gm/day, # 100 Gm, 1 Refills, Maintenance, 05/29/21 16:52:00 EDT, Gel, [facility], Partial fill upon patient request if the prescription is for a schedule II opioid... Start Date: 05/29/21 Status: Ordered Dulera 200 mcg-5 mcg/inh inhalation aerosol 2 puffs, Inhalation, 2 times a day, # 1 each, 3 Refills, Maintenance, 01/28/21 16:44:00 EST, Aerosol, [facility], STOP FLOVENT, 2 puffs Inhalation 2 times a day,x30 days, 162, cm,01/28/21 16:02:00 EST, Height, 86.3, kg, 09/29/20 1... Start Date: 01/28/21 Stop Date: 05/28/21 Status: Ordered escitalopram 20 mg oral tablet 1 tablet = 20 mg, By Mouth, Daily, # 90 tablet, 0 Refills, Maintenance, 07/30/22 12:03:00 EDT, Tablet, [facility][id number], Partial fill upon patient request if the prescription is for a schedule II opioid drug., 162.56, cm, 07/30/22 10:55:00... Start Date: 07/30/22 Status: Ordered ferrous fumarate 324 mg oral tablet 1 tablet = 324 mg, By Mouth, Every other day, # 45 tablet, 0 Refills, Maintenance, 07/31/22 11:19:00 EDT, Tablet, [facility] #[id number], Partial fill upon patient request if the [...] Gm, 5 Refills, Maintenance, 07/19/19 15:19:00 EDT, [place], [facility] #54211, 2 sprays Nares, Both Daily in AM,x30 [...] 08/30/22 13:09:00 EDT, Route to Pharmacy Electronically, [facility] #[id number], 162.56, cm, 08/20/22 13:54:00 EDT, Height, 79.54, [...] Instructions, # 1 each, Maintenance, covering for [facility] Blood pressure monitor neededto monitor blood [...] 2 Refills, Maintenance, 07/30/22 12:17:00 EDT, Syrup, [facility] #[id number], 30 mL By Mouth 4 times a day, 162.56, cm, 07/30/22 10:55:00 EDT,Height, 79.54, kg, 07/30/22 10:55:00 EDT, Dry Weight Start Date: 07/30/22 Status: Ordered losartan 100 mg oral tablet 1 tablet, By Mouth, Daily, # 30 tablet, 5 Refills, [facility] #[id number], 162, cm, 10/09/21 16:19:00 EDT, Height, 86.3, kg, 09/29/20 15:30:00 EDT, Dry Weight Start Date: 10/20/21 Status: Ordered meclizine 25 mg oral tablet 1 tablet = 25 mg, By Mouth, 2 times a day, # 30 tablet, 1 Refills, Maintenance, 07/10/21 17:25:00 EDT, Tablet, [facility] #[id number], 162, cm, 06/19/21 15:40:00 EDT, Height, 86.3, kg, 09/29/20 15:30:00 EDT, Dry Weight Start Date: 07/10/21 Status: Ordered multivitamin with iron Multiple Vitamins with Iron oral tablet 1 tablet, By Mouth, Daily, # 30 tablet, 11 Refills, Maintenance, 04/17/22 7:51:00 EST, Tablet, [facility] #[id number], 1 tablet By Mouth Daily, 162.56, cm, 04/16/22 16:00:00 EST, Height, 87.6, kg, 10/24/21 8:00:00 EDT, Dry Weight Start Date: 04/17/22 Status: Ordered Narcan 4 mg/0.1 mL nasal spray = 4 mg, Inhalation, Once, # 2 each, 1 Refills, Soft Stop, 10/29/20 12:23:00 EDT, [facility] #[id number], Partial fill upon patient request if the prescription is for a schedule II opioid drug., 162, cm, 09/29/20 15:30:00 EDT, Height, 86.3, kg, 08... Start Date: 10/29/20 Status: Ordered ondansetron 4 mg oral tablet 1 tablet = 4 mg, By Mouth, Daily, PRN Nausea & Vomiting, # 10 tablet, 3 Refills, Maintenance, 06/25/22 17:28:00 EDT, [facility] #[id number], 162.56, cm, 06/25/22 16:16:00 EDT, Height, 87.6, [...] 2 Refills, Maintenance, 08/21/22 17:50:00 EDT, Tablet, [facility] #[id number], this is correct dose. 200mg Rx just sent by mistake., 162.56, cm, 08/20/22 13:54:00 EDT, Height, 79.54, kg, 06... Start Date: 08/21/22 Status: Ordered Senna 8.6 mg oral tablet 1-3 tablet, By Mouth, Daily, for constipation, # 90 tablet, Refills 5, Tot. Refills 5, Maintenance,03/26/20 15:25:00 EST, Route to Pharmacy Electronically, [facility] #[id number] Tablet, 162.56, cm, 03/21/20 15:01:00 EST, Height, [...] tablet, 5 Refills, Maintenance, 04/17/22 7:53:00 EST, [facility] #[id number], 162.56, cm, 04/16/22 16:00:00 EST, Height, 87.6, kg, 10/24/21 8:00:00 EDT, Dry Weight Start Date: 04/17/22 Status: Ordered Suboxone 8 mg-2 mg Sublingual Film 2 film, Sublingual, Daily, [id number] [place] dissolve under the tongue may fill less due 09/24/2022,# 14 film, 0 Refills, Maintenance, 09/17/22 17:55:00 EDT, Film, [facility], 2 film Sublingual Daily,x7 days,Instr:[id number] Cathy... Start Date: 09/17/22 Stop Date: 09/24/22 Status: Ordered SUMAtriptan 25 mg oral tablet 1 tablet = 25 mg, By Mouth, Daily, PRN as needed for migraine headache, may repeat dose after 2 hours up to a maximum of 2, # 6 tablet, 1 Refills, Maintenance, 03/02/20 19:47:00 EST, Tablet, [facility] #[id number], 162.56, cm, 01/04/20 9:40:00 ES... 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 2genotype 02/02: [id number] is only mutation detected 3death of sister, caring for mother w/ dementia 4repeat screening colonoscopy in 2020 Social History Social History Type Response Smoking Status Former smoker, quit more than 30 days ago entered on: 12/05/21 Sex Patient Care team information Care Team Personnel Name: Kahlil Sun MD Position: [facility] Physician - Primary Care Member Role: PCP Address: Address: [address] [place] [address] Name: Sharri Prince Position: [facility] PCO Associate Professional Member Role: Lifetime Consulting Provider Care Team Related Persons Name: SHANITA MENDOZA Address: home [address] [place] [address] Name: SHANITA MENDOZA Address: home [address] Name: ULICES PEARSON Name: ULICES ESPARZA Address: [place] [address] Name: LALA LI
--- OUTSIDE RECORDS SUMMARY | 2022-12-13 21:28 | XMS_ITS | Continuity of Care Document ---
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 2Result Comment: #2, [facility] 3Result Comment: [facility] 4Result Comment: pharmacy 5Location History: [facility] 6Admin Note: vis 08/31/11 7Admin Note: ADMIN.BY RN 8Result Comment: [facility] 9Admin Note: Admin. by RN 10Admin Note: Admin. by RN 11Admin Note: Admin. 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 USE... Start Date: 11/13/20 Status: Ordered albuterol 0.083% inhalation solution 3 mL = 2.5 mg, Inhalation, Every 6 hours, PRN Wheezing/Shortness of Breath, # 60 each, 0 Refills, Maintenance, 06/07/20 12:51:00 EDT, Solution, [facility] #[id number], 162.56, cm, 05/23/20 14:31:00 EDT, Height, 77, [...] tablet, 3 Refills, Maintenance, 06/13/21 22:19:00 EDT, [facility] #[id number], 1 tablet By Mouth Daily, 162, cm, [...] 1 Refills, Maintenance, 07/10/21 18:35:00 EDT, Tablet, [facility] #[id number], Partial fill upon patient request if the prescription is for a schedule II opioid drug., 162, cm, 06/19/21 15:40:00 EDT... Start Date: 07/10/21 Status: Ordered cetirizine 10 mg oral tablet 1 tablet = 10 mg, By Mouth, Daily, For allergies., # 30 tablet, 2 Refills, Maintenance, 06/29/19 16:02:00 EDT, Tablet, [facility] #[id number], 162.56, cm, 05/03/19 16:30:00 EST, Height, 72.3, kg, 09/26/18 16:01:00 EDT, Dry Weight Start Date: 06/29/19 Status: Ordered cloNIDine 0.1 mg oral tablet 0.1 mg, 1, tablet, By Mouth, 3 times a day, as needed for anxiety, # 25 tablet, Refills 0, Tot. Refills 0, Maintenance, 10/10/19 21:36:00 EDT, Route to Pharmacy Electronically, [facility] #[id number], 162.56, cm, 10/09/19 10:36:00 EDT, Height, 72... Start Date: 10/10/19 Status: Ordered diclofenac 1% topical gel = 2 Gm, Topically, 4 times a day, PRN for pain, not to exceed: 10 gm/day, # 100 Gm, 1 Refills, Maintenance, 05/29/21 16:52:00 EDT, Gel, [facility], Partial fill upon patient request if the prescription is for a schedule II opioid... Start Date: 05/29/21 Status: Ordered Dulera 200 mcg-5 mcg/inh inhalation aerosol 2 puffs, Inhalation, 2 times a day, # 1 each, 3 Refills, Maintenance, 01/28/21 16:44:00 EST, Aerosol, [facility], STOP FLOVENT, 2 puffs Inhalation 2 times a day,x30 days, 162, cm,01/28/21 16:02:00 EST, Height, 86.3, kg, 09/29/20 1... Start Date: 01/28/21 Stop Date: 05/28/21 Status: Ordered escitalopram 10 mg oral tablet 1 tablet = 10 mg, By Mouth, Daily, # 30 tablet, 11 Refills, Maintenance, 07/31/21 17:50:00 EDT, Tablet, [facility] #62572, Partial fill upon patient request if the prescription is for a schedule II opioid drug., 162, cm, 07/31/21 16:00:00 ED... Start Date: 07/31/21 Status: Ordered Flonase 50 mcg/inh nasal spray 2 sprays, Nares, Both, Daily in AM, # 16 Gm, 5 Refills, Maintenance, 07/19/19 15:19:00 EDT, [place], [facility] #[id number], 2 sprays Nares, Both Daily in AM,x30 days, 162.56, cm, 05/03/19 16:30:00 EST, Height, 72.3, kg, 09/26/18 16:01:00 EDT, Dry... Start Date: 07/19/19 Stop Date: 01/15/20 Status: Ordered fluconazole 150 mg oral tablet 1 tablet = 150 mg, By Mouth, Once, # 1 tablet, 1 Refills, Soft Stop, 01/08/21 19:37:00 EST, Tablet,[facility] #[id number], 162, cm, 12/17/20 23:19:00 EDT, Height, 86.3, [...] 04/24/21 12:37:00 EST, Route to Pharmacy Electronically, [facility] #[id number], STOP HCTZ, 162, cm, 03/24/21 18:41:00 EST, [...] # 1 each, Maintenance, [facility] Blood pressure monitor neededto monitor blood [...] 05/12/18 14:45:33 EDT, Route to Pharmacy Electronically, [id number], [facility] Start Date: 05/12/18 Status: Ordered LORazepam 0.5 mg oral tablet 0.5 tablet = 0.25 mg, By Mouth, 2 times a day, PRN as needed for anxiety, # 20 tablet, 1 Refills, Maintenance, 05/16/19 23:11:00 EDT, Tablet, [facility] #30982, 162.56, cm, 05/03/19 16:30:00 EST, Height, 72.3, kg, 09/26/18 16:01:00 EDT, Dry... Start Date: 05/16/19 Status: Ordered losartan 100 mg oral tablet 1 tablet, By Mouth, Daily, # 30 tablet, 2 Refills, [facility] #[id number], 162, cm, 06/19/21 15:40:00 EDT, Height, 86.3, kg, 09/29/20 15:30:00 EDT, Dry Weight Start Date: 07/10/21 Status: Ordered meclizine 25 mg oral tablet 1 tablet = 25 mg, By Mouth, 2 times a day, # 30 tablet, 1 Refills, Maintenance, 07/10/21 17:25:00 EDT, Tablet, [facility] #[id number], 162, cm, 06/19/21 15:40:00 EDT, Height, 86.3, kg, 09/29/20 15:30:00 EDT, Dry Weight Start Date: 07/10/21 Status: Ordered multivitamin with iron Multiple Vitamins with Iron oral tablet 1 tablet, By Mouth, Daily, # 30 tablet, 11 Refills, Maintenance, 05/07/21 9:45:00 EST, Tablet, [facility] #[id number], Partial fill upon patient request if the prescription is for a schedule II opioid drug., 1 tablet By Mouth Daily, 162, cm, 030... Start Date: 05/07/21 Status: Ordered Narcan 4 mg/0.1 mL nasal spray = 4 mg, Inhalation, Once, # 2 each, 1 Refills, Soft Stop, 10/29/20 12:23:00 EDT, [facility] #[id number], Partial fill upon patient request if the [...] each, 0 Refills, Maintenance, 06/04/20 16:46:00 EDT, [facility] #[id number], OK to sub for any gallon prep, used as directed, 162.56, cm, 05/23/20 14:31:00 EDT, Height, 77, kg, 03/21/20 15:04:00 EST, Dry We... Start Date: 06/04/20 Status: Ordered predniSONE 50 mg oral tablet 1 tablet = 50 mg, By Mouth, Daily, # 7 tablet, 0 Refills, Maintenance, 01/28/21 16:37:00 EST, Tablet, [facility], Partial fill upon patient request if the prescription is for a schedule II opioid drug., 162, cm, 01/28/21 16:02:00 E... Start Date: 01/28/21 Stop Date: 02/04/21 Status: Ordered Senna 8.6 mg oral tablet 1-3 tablet, By Mouth, Daily, for constipation, # 90 tablet, Refills 5, Tot. Refills 5, Maintenance,03/26/20 15:25:00 EST, Route to Pharmacy Electronically, [facility] #[id number] Tablet, 162.56, cm, 03/21/20 15:01:00 EST, Height, [...] 5 Refills, Maintenance, 04/24/21 12:36:00 EST, Tablet, [facility] #[id number], STOP HCTZ, 162, cm, 03/24/21 18:41:00 EST, [...] dissolve under the tongue increase in dose [facility] [id number] coveringfor Dino due on/after 07/25/2021, # 35 film, 0 Refills, Maintenance, 07/25/21 12:07:00 EDT, Film, [facility], 2.5 film Subl... Start Date: 07/25/21 Stop Date: 08/08/21 Status: Ordered SUMAtriptan 25 mg oral tablet 1 tablet = 25 mg, By Mouth, Daily, PRN as needed for migraine headache, may repeat dose after 2 hours up to a maximum of 2, # 6 tablet, 1 Refills, Maintenance, 03/02/20 19:47:00 EST, Tablet, [facility] #09185, 162.56, cm, 01/04/20 9:40:00 ES... Start Date: 03/02/20 Status: Ordered Zofran 4 mg oral tablet 1 tablet = 4 mg, By Mouth, 2 times a day, PRN Nausea & Vomiting, # 10 tablet, 1 Refills, Maintenance, 06/19/21 17:01:00 EDT, Tablet, [facility] #11202, 162, cm, 06/19/21 15:40:00 EDT, Height, 86.3, kg, 09/29/20 15:30:00 EDT, Dry Weight Start Date: 06/19/21 Status: Ordered zolpidem 5 mg oral tablet 1 tablet = 5 mg, By Mouth, Daily at bedtime, PRN as needed for sleep, # 25 tablet, 0 Refills, Maintenance, 07/31/21 17:57:00 EDT, [facility] #[id number], Partial fill upon patient request if theprescription is for a schedule II opioid drug., 162... 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 2genotype 02/02: [id number] is only mutation detected 3death of sister, caring for mother w/ dementia 4repeat screening colonoscopy in 2020 Social History Social History Type Response Smoking Status Former smoker, quit more than 30 days ago entered on: 10/29/20 Sex
--- OUTSIDE RECORDS SUMMARY | 2022-12-13 21:28 | XMS_ITS | Continuity of Care Document ---
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 Role Phone Kahlil Sun MD Primary Care Physician Encounter [facility] Date(s): 08/20/21 - 09/21/21 [facility] Attending Physician: Kahlil Sun MD Admitting Physician: Kahlil Sun MD Allergies, Adverse Reactions, Alerts Substance Reaction Severity Status amitriptyline 1 Mental status Active Levaquin 2 Active Ziagen Active aspirin 3 facial edema and sob [...] Comment: #2, [facility] 3Result Comment: [facility] 4Result Comment: pharmacy 5Location History: [facility] 6Admin Note: vis 08/31/11 7Admin Note: ADMIN.BY RN 8Result Comment: [facility] 9Admin Note: Admin. by RN 10Admin Note: Admin. by RN 11Admin Note: Admin. by RN 12Admin Note: vis 06/15/15 13Admin Note: dose #6 (3rd in 2nd series) 14Admin Note: dose #5 15Admin Note: #3 16Admin Note: LITO [employer]ur 17Admin Note: ADMIN BEN, TYPE COPYIST 18Admin Note: BY LEXI Agudelo 19Admin Note: [...] tablet, 5 Refills, Maintenance, 01/08/21 18:41:00 EST, [facility] #[id number], 162, cm, 12/17/20 23:19:00 EDT, Height, 86.3, kg, 09/29/20 15:30:00 EDT, Dry Weight Start Date: 01/08/21 Stop Date: 02/07/21 Status: Ordered Albuterol (Eqv-ProAir HFA) 90 mcg/inh inhalation aerosol 2 puffs, Inhalation, Every 4 hours, PRN NEEDED FOR WHEEZING/SHORTNESS OF BREATH, USE WITH SPACERCHAMBER, # 8.5 Gm, 5 Refills, [facility] #[id number], 16, INHALE 2 PUFFS INTO LUNGS EVERY 4 HOURS NEEDED FOR WHEEZING/SHORTNESS OF BREATH. USE... Start Date: 11/13/20 Status: Ordered albuterol 0.083% inhalation solution 3 mL = 2.5 mg, Inhalation, Every 6 hours, PRN Wheezing/Shortness of Breath, # 60 each, 0 Refills, Maintenance, 06/07/20 12:51:00 EDT, Solution, [facility] #[id number], 162.56, cm, 05/23/20 14:31:00 EDT, Height, 77, [...] tablet, 3 Refills, Maintenance, 06/13/21 22:19:00 EDT, [facility] #[id number], 1 tablet By Mouth Daily, 162, cm, [...] 1 Refills, Maintenance, 07/10/21 18:35:00 EDT, Tablet, [facility] #[id number], Partial fill upon patient request if the prescription is for a schedule II opioid drug., 162, cm, 06/19/21 15:40:00 EDT... Start Date: 07/10/21 Status: Ordered cetirizine 10 mg oral tablet 1 tablet = 10 mg, By Mouth, Daily, For allergies., # 30 tablet, 2 Refills, Maintenance, 06/29/19 16:02:00 EDT, Tablet, [facility] #[id number], 162.56, cm, 05/03/19 16:30:00 EST, Height, 72.3, kg, 09/26/18 16:01:00 EDT, Dry Weight Start Date: 06/29/19 Status: Ordered cloNIDine 0.1 mg oral tablet 0.1 mg, 1, tablet, By Mouth, 3 times a day, as needed for anxiety, # 25 tablet, Refills 0, Tot. Refills 0, Maintenance, 10/10/19 21:36:00 EDT, Route to Pharmacy Electronically, [facility] #[id number], 162.56, cm, 10/09/19 10:36:00 EDT, Height, 72... Start Date: 10/10/19 Status: Ordered diclofenac 1% topical gel = 2 Gm, Topically, 4 times a day, PRN for pain, not to exceed: 10 gm/day, # 100 Gm, 1 Refills, Maintenance, 05/29/21 16:52:00 EDT, Gel, [facility], Partial fill upon patient request if the prescription is for a schedule II opioid... Start Date: 05/29/21 Status: Ordered Dulera 200 mcg-5 mcg/inh inhalation aerosol 2 puffs, Inhalation, 2 times a day, # 1 each, 3 Refills, Maintenance, 01/28/21 16:44:00 EST, Aerosol, [facility], STOP FLOVENT, 2 puffs Inhalation 2 times a day,x30 days, 162, cm,01/28/21 16:02:00 EST, Height, 86.3, kg, 09/29/20 1... Start Date: 01/28/21 Stop Date: 05/28/21 Status: Ordered escitalopram 10 mg oral tablet 1 tablet = 10 mg, By Mouth, Daily, # 30 tablet, 11 Refills, Maintenance, 07/31/21 17:50:00 EDT, Tablet, [facility] #[id number], Partial fill upon patient request if the [...] Gm, 5 Refills, Maintenance, 07/19/19 15:19:00 EDT, [place], [facility] #49808, 2 sprays Nares, Both Daily in AM,x30 days, 162.56, cm, 05/03/19 16:30:00 EST, Height, 72.3, kg, 09/26/18 16:01:00 EDT, Dry... Start Date: 07/19/19 Stop Date: 01/15/20 Status: Ordered fluconazole 150 mg oral tablet 1 tablet = 150 mg, By Mouth, Once, # 1 tablet, 1 Refills, Soft Stop, 01/08/21 19:37:00 EST, Tablet,[facility] #02088, 162, cm, 12/17/20 23:19:00 EDT, Height, 86.3, [...] 04/24/21 12:37:00 EST, Route to Pharmacy Electronically, [facility] #[id number], STOP HCTZ, 162, cm, 03/24/21 18:41:00 EST, [...] Instructions, # 1 each, Maintenance, covering for [facility] Blood pressure monitor neededto monitor blood pressure [...] 05/12/18 14:45:33 EDT, Route to Pharmacy Electronically, [id number], [facility] Start Date: 05/12/18 Status: Ordered LORazepam 0.5 mg oral tablet 0.5 tablet = 0.25 mg, By Mouth, 2 times a day, PRN as needed for anxiety, # 20 tablet, 1 Refills, Maintenance, 05/16/19 23:11:00 EDT, Tablet, [facility] #88373, 162.56, cm, 05/03/19 16:30:00 EST, Height, 72.3, kg, 09/26/18 16:01:00 EDT, Dry... Start Date: 05/16/19 Status: Ordered losartan 100 mg oral tablet 1 tablet, By Mouth, Daily, # 30 tablet, 2 Refills, [facility] #[id number], 162, cm, 06/19/21 15:40:00 EDT, Height, 86.3, kg, 09/29/20 15:30:00 EDT, Dry Weight Start Date: 07/10/21 Status: Ordered meclizine 25 mg oral tablet 1 tablet = 25 mg, By Mouth, 2 times a day, # 30 tablet, 1 Refills, Maintenance, 07/10/21 17:25:00 EDT, Tablet, [facility] #81709, 162, cm, 06/19/21 15:40:00 EDT, Height, 86.3, kg, 09/29/20 15:30:00 EDT, Dry Weight Start Date: 07/10/21 Status: Ordered multivitamin with iron Multiple Vitamins with Iron oral tablet 1 tablet, By Mouth, Daily, # 30 tablet, 11 Refills, Maintenance, 09/06/21 19:08:00 EDT, Tablet, [facility] #52861, 1 tablet By Mouth Daily, 162, cm, 07/31/21 16:00:00 EDT, Height, 86.3, kg,09/29/20 15:30:00 EDT, Dry Weight Start Date: 09/06/21 Status: Ordered Narcan 4 mg/0.1 mL nasal spray = 4 mg, Inhalation, Once, # 2 each, 1 Refills, Soft Stop, 10/29/20 12:23:00 EDT, [facility] #[id number], Partial fill upon patient request if the [...] Dry Weight Start Date: 08/28/21 Status: Ordered PEG-3350 with Electrolytes (Eqv-GoLYTELY) oral powder for reconstitution See Instructions, used as directed, # 1 each, 0 Refills, Maintenance, 06/04/20 16:46:00 EDT, [facility] #05817, OK to sub for any gallon prep, used as directed, 162.56, cm, 05/23/20 14:31:00 EDT, Height, 77, kg, 03/21/20 15:04:00 EST, Dry We... Start Date: 06/04/20 Status: Ordered predniSONE 50 mg oral tablet 1 tablet = 50 mg, By Mouth, Daily, # 7 tablet, 0 Refills, Maintenance, 01/28/21 16:37:00 EST, Tablet, [facility], Partial fill upon patient request if the prescription is for a schedule II opioid drug., 162, cm, 01/28/21 16:02:00 E... Start Date: 01/28/21 Stop Date: 02/04/21 Status: Ordered Senna 8.6 mg oral tablet 1-3 tablet, By Mouth, Daily, for constipation, # 90 tablet, Refills 5, Tot. Refills 5, Maintenance,03/26/20 15:25:00 EST, Route to Pharmacy Electronically, [facility] #[id number] Tablet, 162.56, cm, 03/21/20 15:01:00 EST, Height, [...] 5 Refills, Maintenance, 04/24/21 12:36:00 EST, Tablet, [facility] #75047, STOP HCTZ, 162, cm, 03/24/21 18:41:00 EST, [...] dissolve under the tongue increase in dose [facility] [id number] coveringfor Dino due on/after 08/22/2021, # 35 film, 0 Refills, Maintenance, 08/22/21 9:27:00 EDT, Film,[facility], 2.5 film Subli... Start Date: 08/22/21 Stop Date: 09/05/21 Status: Ordered SUMAtriptan 25 mg oral tablet 1 tablet = 25 mg, By Mouth, Daily, PRN as needed for migraine headache, may repeat dose after 2 hours up to a maximum of 2, # 6 tablet, 1 Refills, Maintenance, 03/02/20 19:47:00 EST, Tablet, [facility] #19481, 162.56, cm, 01/04/20 9:40:00 ES... Start Date: 03/02/20 Status: Ordered Zofran 4 mg oral tablet 1 tablet = 4 mg, By Mouth, Daily, PRN Nausea & Vomiting, # 10 tablet, 1 Refills, Maintenance, 08/18/21 22:17:00 EDT, Tablet, [facility] #77903, 162, cm, 07/31/21 16:00:00 EDT, Height, 86.3, kg, 09/29/20 15:30:00 EDT, Dry Weight Start Date: 08/18/21 Status: Ordered zolpidem 5 mg oral tablet 1 tablet = 5 mg, By Mouth, Daily at bedtime, PRN as needed for sleep, # 30 tablet, 1 Refills, Maintenance, 09/04/21 20:17:00 EDT, [facility] #[id number], 162, cm, 07/31/21 16:00:00 EDT, Height, 86.3, [...] Obese class I(Confirmed) Active Opioid dependence(Confirmed) Active *[id number] Care Partn renee Saavedra(Confirmed) Active Health care maintenance(Confirmed) Active Portal [...] tolerance, and QD need over. 2genotype 02/02: [id number] is only mutation detected 3death of sister, caring for mother w/ dementia 4repeat screening colonoscopy in 2020 Social History Social History Type Response Smoking Status Former smoker, quit more than 30 days ago entered on: 10/29/20 Sex
--- OUTSIDE RECORDS SUMMARY | 2022-12-13 21:28 | XMS_ITS | Continuity of Care Document ---
Author Name Unknown Organization 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 Allergies, Adverse Reactions, Alerts Substance Reaction Severity [...] events reported or observed. 2Result Comment: #2, [facility] 3Result Comment: [facility] 4Result Comment: pharmacy 5Location History: [facility] 6Admin Note: vis 08/31/11 7Admin Note: ADMIN.BY RN 8Result Comment: [facility] 9Admin Note: Admin. by RN 10Admin Note: Admin. by RN 11Admin Note: Admin. by RN 12Admin Note: vis 06/14/16 13Admin Note: dose #6 (3rd in 2nd series) 14Admin Note: dose #5 15Admin Note: #3 16Admin Note: LITO [employer]ur 17Admin Note: ADMIN BEN, BISQUE BRUSHER 18Admin Note: BY LEXI Agudelo 19Admin Note: [...] 1 Refills, Maintenance, 09/12/20 16:18:00EDT, CR Tablet, [facility] #38307, Partial fill upon patient request if the prescription is for a schedule II opioid drug., 162, cm, 09/12/20... Start Date: 09/12/20 Status: Ordered acyclovir 400 mg oral tablet 1 tablet = 400 mg, By Mouth, 2 times a day, # 10 tablet, 5 Refills, Maintenance, 01/08/21 18:41:00 EST, [facility] #69669, 162, cm, 12/17/20 23:19:00 EDT, Height, 86.3, kg, 09/29/20 15:30:00 EDT, Dry Weight Start Date: 01/08/21 Stop Date: 02/07/21 Status: Ordered Albuterol (Eqv-ProAir HFA) 90 mcg/inh inhalation aerosol 2 puffs, Inhalation, Every 4 hours, PRN NEEDED FOR WHEEZING/SHORTNESS OF BREATH, USE WITH SPACERCHAMBER, # 8.5 Gm, 5 Refills, [facility] #49435, 16, INHALE 2 PUFFS INTO LUNGS EVERY 4 HOURS NEEDED FOR WHEEZING/SHORTNESS OF BREATH. USE... Start Date: 11/13/20 Status: Ordered albuterol 0.083% inhalation solution 3 mL = 2.5 mg, Inhalation, Every 6 hours, PRN Wheezing/Shortness of Breath, # 60 each, 0 Refills, Maintenance, 06/07/20 12:51:00 EDT, Solution, [facility] #[id number], 162.56, cm, 05/23/20 14:31:00 EDT, Height, 77, [...] tablet, 3 Refills, Maintenance, 03/02/20 19:50:00 EST, [facility] #38430, 1 tablet By Mouth Daily, 162.56, cm, [...] 2 Refills, Maintenance, 06/29/19 16:02:00 EDT, Tablet, [facility] #65109, 162.56, cm, 05/03/19 16:30:00 EST, Height, 72.3, kg, 09/26/18 16:01:00 EDT, Dry Weight Start Date: 06/29/19 Status: Ordered cloNIDine 0.1 mg oral tablet 0.1 mg, 1, tablet, By Mouth, 3 times a day, as needed for anxiety, # 25 tablet, Refills 0, Tot. Refills 0, Maintenance, 10/10/19 21:36:00 EDT, Route to Pharmacy Electronically, [facility] #[id number], 162.56, cm, 10/09/19 10:36:00 EDT, Height, 72... Start Date: 10/10/19 Status: Ordered Dulera 200 mcg-5 mcg/inh inhalation aerosol 2 puffs, Inhalation, 2 times a day, # 1 each, 3 Refills, Maintenance, 01/28/21 16:44:00 EST, Aerosol, [facility], STOP FLOVENT, 2 puffs Inhalation 2 times a day,x30 days, 162, cm,01/28/21 16:02:00 EST, Height, 86.3, kg, 09/29/20 1... Start Date: 01/28/21 Stop Date: 05/28/21 Status: Ordered escitalopram 5 mg oral tablet 1 tablet = 5 mg, By Mouth, Daily, # 30 tablet, 11 Refills, Maintenance, 05/07/21 9:48:00 EST, Tablet, [facility] #20304, Partial fill upon patient request if the prescription is for a schedule II opioid drug., 162, cm, 05/07/21 8:46:00 EST,... Start Date: 05/07/21 Status: Ordered Flonase 50 mcg/inh nasal spray 2 sprays, Nares, Both, Daily in AM, # 16 Gm, 5 Refills, Maintenance, 07/19/19 15:19:00 EDT, [place], [facility] #80241, 2 sprays Nares, Both Daily in AM,x30 days, 162.56, cm, 05/03/19 16:30:00 EST, Height, 72.3, kg, 09/26/18 16:01:00 EDT, Dry... Start Date: 07/19/19 Stop Date: 01/15/20 Status: Ordered fluconazole 150 mg oral tablet 1 tablet = 150 mg, By Mouth, Once, # 1 tablet, 1 Refills, Soft Stop, 01/08/21 19:37:00 EST, Tablet,[facility] #39764, 162, cm, 12/17/20 23:19:00 EDT, Height, 86.3, kg, 09/29/20 15:30:00 EDT, Dry Weight Start Date: 01/08/21 Status: Ordered Freestyle Lite Lancets See Instructions, # 50 each, Refills 2, Tot. Refills 2, Maintenance, Test every 30 min for 4 hours after selected meals, up to 8 times/day, up to 6 days per month. Dx: E16.1 - hypoglycemia, R73.9 - Hyperglycemia, 07/13/21 17:56:00 EDT, Compound, 163,... Start Date: 09/10/20 [...] 04/24/21 12:37:00 EST, Route to Pharmacy Electronically, [facility] #[id number], STOP HCTZ, 162, cm, 03/24/21 18:41:00 EST, [...] Instructions, # 1 each, Maintenance, covering for [facility] Blood pressure monitor neededto monitor blood [...] 05/12/18 14:45:33 EDT, Route to Pharmacy Electronically, [id number], [facility] Start Date: 05/12/18 Status: Ordered LORazepam 0.5 mg oral tablet 0.5 tablet = 0.25 mg, By Mouth, 2 times a day, PRN as needed for anxiety, # 20 tablet, 1 Refills, Maintenance, 05/16/19 23:11:00 EDT, Tablet, [facility] #30058, 162.56, cm, 05/03/19 16:30:00 EST, Height, 72.3, kg, 09/26/18 16:01:00 EDT, Dry... Start Date: 05/16/19 Status: Ordered losartan 100 mg oral tablet 1 tablet, By Mouth, Daily, # 30 tablet, 5 Refills, Maintenance, 09/24/20 16:00:00 EDT, [facility] #02351, 162, cm, 09/19/20 15:59:00 EDT, Height, 82.1, kg, 06/08/20 17:25:00 EDT, Dry Weight Start Date: 09/24/20 Status: Ordered meclizine 25 mg oral tablet 1 tablet = 25 mg, By Mouth, 2 times a day, # 30 tablet, 1 Refills, Maintenance, 03/30/19 15:49:00 EST, Tablet, [facility] #39310, 162.56, cm, 03/08/19 14:34:00 EST, Height, 72.3, kg, 09/26/18 16:01:00 EDT, Dry Weight Start Date: 03/30/19 Status: Ordered multivitamin with iron Multiple Vitamins with Iron oral tablet 1 tablet, By Mouth, Daily, # 30 tablet, 11 Refills, Maintenance, 05/07/21 9:45:00 EST, Tablet, [facility] #47503, Partial fill upon patient request if the prescription is for a schedule II opioid drug., 1 tablet By Mouth Daily, 162, cm, 0... Start Date: 05/07/21 Status: Ordered Narcan 4 mg/0.1 mL nasal spray = 4 mg, Inhalation, Once, # 2 each, 1 Refills, Soft Stop, 10/29/20 12:23:00 EDT, [facility] #79713, Partial fill upon patient request if the [...] each, 0 Refills, Maintenance, 06/04/20 16:46:00 EDT, [facility] #61167, OK to sub for any gallon prep, used as directed, 162.56, cm, 05/23/20 14:31:00 EDT, Height, 77, kg, 03/21/20 15:04:00 EST, Dry We... Start Date: 06/04/20 Status: Ordered predniSONE 50 mg oral tablet 1 tablet = 50 mg, By Mouth, Daily, # 7 tablet, 0 Refills, Maintenance, 01/28/21 16:37:00 EST, Tablet, [facility], Partial fill upon patient request if the prescription is for a schedule II opioid drug., 162, cm, 01/28/21 16:02:00 E... Start Date: 01/28/21 Stop Date: 02/04/21 Status: Ordered Senna 8.6 mg oral tablet 1-3 tablet, By Mouth, Daily, for constipation, # 90 tablet, Refills 5, Tot. Refills 5, Maintenance,03/26/20 15:25:00 EST, Route to Pharmacy Electronically, [facility] #[id number] Tablet, 162.56, cm, 03/21/20 15:01:00 EST, Height, [...] 5 Refills, Maintenance, 04/24/21 12:36:00 EST, Tablet, [facility] #10624, STOP HCTZ, 162, cm, 03/24/21 18:41:00 EST, [...] under the tongue increase in dose Marva [id number] covering Dino [id number] due on/after 05/02/2021, # 35 film, 0 Refills, Maintenance, 05/23/21 13:46:00 EDT,Film, [facility], 2.5 film... Start Date: 05/23/21 Status: Ordered SUMAtriptan 25 mg oral tablet 1 tablet = 25 mg, By Mouth, Daily, PRN as needed for migraine headache, may repeat dose after 2 hours up to a maximum of 2, # 6 tablet, 1 Refills, Maintenance, 03/02/20 19:47:00 EST, Tablet, [facility] #90027, 162.56, cm, 01/04/20 9:40:00 ES... Start Date: 03/02/20 Status: Ordered Zofran 4 mg oral tablet 1 tablet = 4 mg, By Mouth, 2 times a day, PRN Nausea & Vomiting, # 10 tablet, 0 Refills, Maintenance, 05/01/21 1:24:00 EST, Tablet, [facility] #60346, 162, cm, 03/24/21 18:41:00 EST, Height, 86.3, kg, 09/29/20 15:30:00 EDT, Dry Weight Start Date: 05/01/21 Status: Ordered zolpidem 5 mg oral tablet 0.5 tablet = 2.5 mg, By Mouth, Daily at bedtime, PRN sleep, # 5 tablet, 0 Refills, Acute 05/29/21 9:47:00 EDT, 05/07/21 9:46:00 EST, Tablet, [facility] #96306, Partial fill upon patient request if the [...] Obese class I(Confirmed) Active Opioid dependence(Confirmed) Active *[id number] Care Partn Aprilleela LopezSaavedra(Confirmed) Active Health care maintenance(Confirmed) Active Portal hypertensive gastropathy(Confirmed) 11/30/11 Active Psychological stress(Confirmed) 3 Active Rectal pain(Confirmed) Active TMJ - click(Confirmed) Active Screening for tuberculosis(Confirmed) Active Tubular adenoma of colon(Confirmed) 4 03/30/17 Active Varicose veins of both lower extremities(Confirmed) Active Vitamin D deficiency(Confirmed) 2010 Active 1CBV + NFV on/off/on-suppressed, switch 04/08 to Truvada + ATV 500mg for QD adherence, switch 03/10 toTruvada + raltegravir for upperGI tolerance, and QD need over. 2genotype 02/02: [id number] is only mutation detected 3death of sister, caring for mother w/ dementia 4repeat screening colonoscopy in 2020 Social History Social History Type Response Smoking Status Former smoker, quit more than 30 days ago entered on: 10/29/20 Sex
--- OUTSIDE RECORDS SUMMARY | 2022-12-13 21:28 | XMS_ITS | Continuity of Care Document ---
Author Name Unknown Organization [facility] Address Unknown Care Team Providers Care Hand Rounder Name Role Phone Kahlil Sun MD Primary Care Physician [place] [facility] [place] 01/17/21 [facility] Attending Physician: Kahlil Sun MD Admitting Physician: [...] toxoids (Td) 03/10/01 Given 1Result Comment: #2, [facility] 2Result Comment: [facility] 3Result Comment: [facility] 4Result Comment: pharmacy 5Location History: [place] 6Admin Note: vis 08/31/11 7Admin Note: ADMIN.BY RN 8Admin Note: Admin. by RN 9Admin Note: Admin. by RN 10Admin Note: Admin. 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 Start Date: 09/12/20 Status: Ordered acyclovir 400 mg oral tablet 1 tablet = 400 mg, By Mouth, 2 times a day, # 10 tablet, 5 Refills, Maintenance, 01/08/21 18:41:00 EST, [facility] #[id number], 162, cm, 12/17/20 23:19:00 EDT, Height, 86.3, kg, 09/29/20 15:30:00 EDT, Dry Weight Start Date: 01/08/21 Stop Date: 02/07/21 Status: Ordered Albuterol (Eqv-ProAir HFA) 90 mcg/inh inhalation aerosol 2 puffs, Inhalation, Every 4 hours, PRN NEEDED FOR WHEEZING/SHORTNESS OF BREATH, USE WITH SPACERCHAMBER, # 8.5 Gm, 5 Refills, [facility] #[id number], 16, INHALE 2 PUFFS INTO LUNGS EVERY 4 HOURS NEEDED FOR WHEEZING/SHORTNESS OF BREATH. USE... Start Date: 11/13/20 Status: Ordered albuterol 0.083% inhalation solution 3 mL = 2.5 mg, Inhalation, Every 6 hours, PRN Wheezing/Shortness of Breath, # 60 each, 0 Refills, Maintenance, 06/07/20 12:51:00 EDT, Solution, [facility] #[id number], 162.56, cm, 05/23/20 14:31:00 EDT, Height, 77, [...] tablet, 3 Refills, Maintenance, 03/02/20 19:50:00 EST, [facility] #11508, 1 tablet By Mouth Daily, 162.56, cm, 01/04/20 9:40:00 EST, Height, 72.3, kg, 09/26/18 16:01:00 EDT, Dry Weight Start Date: 03/02/20 Status: Ordered Blood Pressure Meter Blood Pressure Meter, See Instructions, # 1 each, Refills 0, Tot. Refills 0, Maintenance, Use for, 07/11/18 16:11:47 EDT, Compound Start Date: 07/11/18 Status: Ordered buprenorphine-naloxone 12 mg-3 mg sublingual film 1 film, Sublingual, Daily, Dino [id number]. dissolve under the tongue. Due 01/15/2021, # 7 film, 0 Refills, Maintenance, 01/15/21 16:57:00 EST, Film, [facility] #[id number], Partial fill upon patient request if the prescription is for a vinod... Start Date: 01/15/21 Stop Date: 01/22/21 Status: Ordered cetirizine 10 mg oral tablet 1 tablet = 10 mg, By Mouth, Daily, For allergies., # 30 tablet, 2 Refills, Maintenance, 06/29/19 16:02:00 EDT, Tablet, [facility] #06560, 162.56, cm, 05/03/19 16:30:00 EST, Height, 72.3, kg, 09/26/18 16:01:00 EDT, Dry Weight Start Date: 06/29/19 Status: Ordered cloNIDine 0.1 mg oral tablet 0.1 mg, 1, tablet, By Mouth, 3 times a day, as needed for anxiety, # 25 tablet, Refills 0, Tot. Refills 0, Maintenance, 10/10/19 21:36:00 EDT, Route to Pharmacy Electronically, [facility] #[id number], 162.56, cm, 10/09/19 10:36:00 EDT, Height, 72... Start Date: 10/10/19 Status: Ordered escitalopram 5 mg oral tablet 1 tablet = 5 mg, Daily, Maintenance, 12/17/20 22:33:00 EDT Start Date: 12/17/20 Status: Ordered Flonase 50 mcg/inh nasal spray 2 sprays, Nares, Both, Daily in AM, # 16 Gm, 5 Refills, Maintenance, 07/19/19 15:19:00 EDT, [place], [facility] #30873, 2 sprays Nares, Both Daily in AM,x30 days, 162.56, cm, 05/03/19 16:30:00 EST, Height, 72.3, kg, 09/26/18 16:01:00 EDT, Dry... Start Date: 07/19/19 Stop Date: 01/15/20 Status: Ordered Flovent HFA 44 mcg/inh inhalation aerosol 1 puffs, Inhalation, 2 times a day, # 1 each, 5 Refills, Maintenance, 06/07/20 12:52:00 EDT, Aerosol, [facility] #[id number], 162.56, cm, 05/23/20 14:31:00 EDT, Height, 77, kg, 03/21/20 15:04:00EST, Dry Weight Start Date: 06/07/20 Status: Ordered fluconazole 150 mg oral tablet 1 tablet = 150 mg, By Mouth, Once, # 1 tablet, 1 Refills, Soft Stop, 01/08/21 19:37:00 EST, Tablet,[facility] #[id number], 162, cm, 12/17/20 23:19:00 EDT, Height, 86.3, [...] Instructions, # 1 each, Maintenance, covering for [facility] Blood pressure monitor neededto monitor [...] 3 Refills, Maintenance, 03/02/20 19:48:00 EST, Tablet, [email or web address] #[id number], 30 day supply preferred for present, 162.56, [...] 05/12/18 14:45:33 EDT, Route to Pharmacy Electronically, [id number], [facility] Start Date: 05/12/18 Status: Ordered LORazepam 0.5 mg oral tablet 0.5 tablet = 0.25 mg, By Mouth, 2 times a day, PRN as needed for anxiety, # 20 tablet, 1 Refills, Maintenance, 05/16/19 23:11:00 EDT, Tablet, [facility] #61410, 162.56, cm, 05/03/19 16:30:00 EST, Height, 72.3, kg, 09/26/18 16:01:00 EDT, Dry... Start Date: 05/16/19 Status: Ordered losartan 100 mg oral tablet 1 tablet, By Mouth, Daily, # 30 tablet, 5 Refills, Maintenance, 09/24/20 16:00:00 EDT, [facility] #[id number], 162, cm, 09/19/20 15:59:00 EDT, Height, 82.1, kg, 06/08/20 17:25:00 EDT, Dry Weight Start Date: 09/24/20 Status: Ordered meclizine 25 mg oral tablet 1 tablet = 25 mg, By Mouth, 2 times a day, # 30 tablet, 1 Refills, Maintenance, 03/30/19 15:49:00 EST, Tablet, [facility] #13489, 162.56, cm, 03/08/19 14:34:00 EST, Height, 72.3, kg, 09/26/18 16:01:00 EDT, Dry Weight Start Date: 03/30/19 Status: Ordered Narcan 4 mg/0.1 mL nasal spray = 4 mg, Inhalation, Once, # 2 each, 1 Refills, Soft Stop, 10/29/20 12:23:00 EDT, [facility] #[id number], Partial fill upon patient request if the [...] each, 0 Refills, Maintenance, 06/04/20 16:46:00 EDT, [facility] #49298, OK to sub for any gallon prep, used as directed, 162.56, cm, 05/23/20 14:31:00 EDT, Height, 77, kg, 03/21/20 15:04:00 EST, Dry We... Start Date: 06/04/20 Status: Ordered Senna 8.6 mg oral tablet 1-3 tablet, By Mouth, Daily, for constipation, # 90 tablet, Refills 5, Tot. Refills 5, Maintenance,03/26/20 15:25:00 EST, Route to Pharmacy Electronically, [facility] #[id number] Tablet, 162.56, cm, 03/21/20 15:01:00 EST, Height, [...] 1 Refills, Maintenance, 03/02/20 19:47:00 EST, Tablet, [facility] #69178, 162.56, cm, 01/04/20 9:40:00 ES... Start Date: 03/02/20 Status: Ordered Zofran 4 mg oral tablet 1 tablet = 4 mg, By Mouth, 2 times a day, PRN Nausea & Vomiting, # 10 tablet, 0 Refills, Maintenance, 12/01/20 20:26:00 EDT, Tablet, [facility] #87480, 162, cm, 10/29/20 17:08:00 EDT, Height, 86.3, [...] 2016 Active Migraine(Confirmed) Active Opioid dependence(Confirmed) Active *[id number] Care Partn April Saavedra(Confirmed) Active Health care [...] tolerance, and QD need over. 2genotype 02/02: [id number] is only mutation detected 3death of sister, caring for mother w/ dementia 4repeat screening colonoscopy in 2020 Social History Social History Type Response Smoking Status Former smoker, quit more than 30 days ago entered on: 10/29/20 Sex
--- OUTSIDE RECORDS SUMMARY | 2022-12-13 21:28 | XMS_ITS | Continuity of Care Document ---
Author Name Unknown Organization [facility] Address [address] [place] [address]- Care Team Providers Care Iron Piler Name Role Phone Dino PEREZ, Kahlil Barrera Primary Care Physician [phone] Encounter [facility] [place] Date(s): 03/24/19 - 04/03/19 [facility] [address] [place] [address]- [facility] Attending Physician: Admellen, [id number] Admitting Physician: Admtr, Ar8 Referring Physician: Admtr, Ar8 Allergies, Adverse Reactions, Alerts Substance Reaction Severity [...] Date: 05/12/18 Stop Date: 06/11/18 Status: Ordered Biktarvy oral tablet 1 tablet, By Mouth, Daily, # 30 tablet, 11 Refills, Maintenance, 08/23/18 16:59:15 EDT, 1 tablet ByMouth Daily Start Date: 08/23/18 Status: Ordered Blood Pressure Meter Blood Pressure Meter, See Instructions, # 1 each, Refills 0, Tot. Refills 0, Maintenance, Use for, 07/11/18 16:11:47 EDT, Compound Start Date: 07/11/18 Status: Ordered buprenorphine-naloxone 2 mg-0.5 mg sublingual film 0.5 each, Sublingual, Daily, [place] [id number] Covering for [place] [id number], # 4 film, 0 Refills, Maintenance, 03/30/19 17:44:00 EST, [facility] #[id number], 0.5 each Sublingual Daily,x7 days,Instr:[place] [id number] Covering for Morrison [id number]... Start Date: 03/30/19 Stop Date: 04/06/19 Status: Ordered Flonase 50 mcg/inh nasal spray 1 sprays, Nares, Both, 2 times a day, # 1 each, 0 Refills, Maintenance, 05/24/18 16:00:06 EDT, [place], 1 sprays Nares, Both 2 times a day,x14 days Start Date: 05/24/18 Stop Date: 06/07/18 Status: Ordered Flovent HFA 44 mcg/inh inhalation [...] EST, Compound Start Date: 04/09/17 Status: Ordered Lexapro 5 mg oral tablet 1 tablet = 5 mg, By Mouth, Daily, per psych, # 30 tablet, 0 Refills, Maintenance, 09/22/17 11:41:54EDT, Tablet Start Date: 09/22/17 Status: Ordered Liletta 52 mg intrauterine device See Instructions, 1 each Once, # 1 each, 0 Refills, Soft Stop, 07/11/18 16:17:37 EDT Start Date: 07/11/18 Status: Ordered lisinopril 10 mg oral tablet 10 mg, 1, tablet, By Mouth, Daily, # 30 tablet, Refills 11, Tot. Refills 11, Maintenance, 03/12/19 21:36:00 EST, Route to Pharmacy Electronically, [facility] #[id number], dose increase from 5mg,162.56, cm, 03/08/19 14:34:00 EST, Height, 72.3, kg... Start Date: 03/12/19 Status: Ordered loratadine 10 mg oral tablet 10 mg, 1, tablet, By Mouth, Daily, PRN, # 30 tablet, Refills 3, Tot. Refills 3, Maintenance, allergy/itch, 05/12/18 14:45:33 EDT, Route to Pharmacy Electronically, [id number], [facility] Start Date: 05/12/18 Status: Ordered LORazepam 0.5 mg oral tablet 0.5 tablet = 0.25 mg, By Mouth, 2 times a day, PRN as needed for anxiety, # 20 tablet, 1 Refills, Maintenance, 11/08/18 14:34:00 EDT, Tablet Start Date: 11/08/18 Status: Ordered meclizine 25 mg oral tablet 1 tablet = 25 mg, By Mouth, 2 times a day, # 30 tablet, 1 Refills, Maintenance, 03/30/19 15:49:00 EST, Tablet, [facility] #[id number], 162.56, cm, 03/08/19 14:34:00 EST, Height, 72.3, [...] hours, PRN, use with spacer chamber, # 2 each, Refills 0, Tot. Refills 0, Maintenance, 12/05/15 14:17:14, Aerosol, Route to Pharmacy Electronically, [id number], [facility] [id number] Start Date: 12/05/15 Status: Ordered Senna 8.6 mg oral tablet 1-3 tablet, By Mouth, Daily, for constipation, # 90 tablet, Refills 5, Tot. Refills 5, Maintenance,02/17/18 15:12:45 EST, Route to Pharmacy Electronically, [id number], [facility] Tablet Start Date: 02/17/18 Status: Ordered SUMAtriptan 25 mg oral tablet 1 tablet = 25 mg, By Mouth, Daily, PRN as needed for migraine headache, may repeat dose after 2 hours up to a maximum of 2, # 6 tablet, 1 Refills, Maintenance, 09/28/17 15:37:07 EDT, Tablet Start Date: 09/28/17 Status: Ordered Zofran 4 mg oral tablet 1 tablet = 4 mg, By Mouth, 2 times a day, PRN Nausea & Vomiting, # 20 tablet, 1 Refills, Maintenance, 11/27/18 21:02:51 EDT, Tablet Start Date: 11/27/18 Status: Ordered zolpidem 5 mg oral tablet [...] 2016 Active Migraine(Confirmed) Active Opioid dependence(Confirmed) Active *[id number]-[facility] Partn renee Saavedra(Confirmed) Active Health care maintenance(Confirmed) [...] tolerance, and QD need over. 2genotype 02/02: [id number] is only mutation detected 3death of sister, caring for mother w/ dementia 4repeat screening colonoscopy in 2020 Social History Social History Type Response Smoking Status Former smoker, quit more than 30 days ago entered on: 05/24/18 Sex
--- OUTSIDE RECORDS SUMMARY | 2022-12-13 21:28 | XMS_ITS | Continuity of Care Document ---
Author Name Unknown Organization [facility] Address [address] [place] [id number]- Care Team Providers Care Stonehand Name Role Phone Kahlil Sun MD Primary Care Physician [phone] [id number] Date(s): 06/12/21 - 07/17/[address] [address]- Discharge Disposition: A-D/C Home Attending Physician: Kahlil Sun MD Admitting Physician: Kahlil Sun MD Referring Physician: Kahlil Sun MD Allergies, Adverse Reactions, [...] events reported or observed. 2Result Comment: #2, [facility] 3Result Comment: [facility] 4Result Comment: pharmacy 5Location History: [place] 6Admin Note: vis 08/31/11 7Admin Note: ADMIN.BY RN 8Result Comment: [facility] 9Admin Note: Admin. by RN 10Admin Note: Admin. by RN 11Admin Note: Admin. 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 USE... Start Date: 11/13/20 Status: Ordered albuterol 0.083% inhalation solution 3 mL = 2.5 mg, Inhalation, Every 6 hours, PRN Wheezing/Shortness of Breath, # 60 each, 0 Refills, Maintenance, 06/07/20 12:51:00 EDT, Solution, [facility] #[id number], 162.56, cm, 05/23/20 14:31:00 EDT, Height, 77, [...] tablet, 3 Refills, Maintenance, 06/13/21 22:19:00 EDT, [facility] #02915, 1 tablet By Mouth Daily, 162, cm, [...] 1 Refills, Maintenance, 07/10/21 18:35:00 EDT, Tablet, [facility] #[id number], Partial fill upon patient request if the prescription is for a schedule II opioid drug., 162, cm, 06/19/21 15:40:00 EDT... Start Date: 07/10/21 Status: Ordered cetirizine 10 mg oral tablet 1 tablet = 10 mg, By Mouth, Daily, For allergies., # 30 tablet, 2 Refills, Maintenance, 06/29/19 16:02:00 EDT, Tablet, [facility] #[id number], 162.56, cm, 05/03/19 16:30:00 EST, Height, 72.3, kg, 09/26/18 16:01:00 EDT, Dry Weight Start Date: 06/29/19 Status: Ordered cloNIDine 0.1 mg oral tablet 0.1 mg, 1, tablet, By Mouth, 3 times a day, as needed for anxiety, # 25 tablet, Refills 0, Tot. Refills 0, Maintenance, 10/10/19 21:36:00 EDT, Route to Pharmacy Electronically, [facility] #[id number], 162.56, cm, 10/09/19 10:36:00 EDT, Height, 72... Start Date: 10/10/19 Status: Ordered diclofenac 1% topical gel = 2 Gm, Topically, 4 times a day, PRN for pain, not to exceed: 10 gm/day, # 100 Gm, 1 Refills, Maintenance, 05/29/21 16:52:00 EDT, Gel, [facility], Partial fill upon patient request if the prescription is for a schedule II opioid... Start Date: 05/29/21 Status: Ordered Dulera 200 mcg-5 mcg/inh inhalation aerosol 2 puffs, Inhalation, 2 times a day, # 1 each, 3 Refills, Maintenance, 01/28/21 16:44:00 EST, Aerosol, [facility], STOP FLOVENT, 2 puffs Inhalation 2 times a day,x30 days, 162, cm,01/28/21 16:02:00 EST, Height, 86.3, kg, 09/29/20 1... Start Date: 01/28/21 Stop Date: 05/28/21 Status: Ordered escitalopram 5 mg oral tablet 1 tablet = 5 mg, By Mouth, Daily, # 30 tablet, 11 Refills, Maintenance, 05/07/21 9:48:00 EST, Tablet, [facility] #[id number], Partial fill upon patient request if the prescription is for a schedule II opioid drug., 162, cm, 05/07/21 8:46:00 EST,... Start Date: 05/07/21 Status: Ordered Flonase 50 mcg/inh nasal spray 2 sprays, Nares, Both, Daily in AM, # 16 Gm, 5 Refills, Maintenance, 07/19/19 15:19:00 EDT, [place], [facility] #[id number], 2 sprays Nares, Both Daily in AM,x30 days, 162.56, cm, 05/03/19 16:30:00 EST, Height, 72.3, kg, 09/26/18 16:01:00 EDT, Dry... Start Date: 07/19/19 Stop Date: 01/15/20 Status: Ordered fluconazole 150 mg oral tablet 1 tablet = 150 mg, By Mouth, Once, # 1 tablet, 1 Refills, Soft Stop, 01/08/21 19:37:00 EST, Tablet,[facility] #[id number], 162, cm, 12/17/20 23:19:00 EDT, Height, 86.3, [...] 04/24/21 12:37:00 EST, Route to Pharmacy Electronically, [facility] #[id number], STOP HCTZ, 162, cm, 03/24/21 18:41:00 EST, [...] Instructions, # 1 each, Maintenance, covering for [facility] Blood pressure monitor neededto monitor blood [...] 05/12/18 14:45:33 EDT, Route to Pharmacy Electronically, [id number], [facility] Start Date: 05/12/18 Status: Ordered LORazepam 0.5 mg oral tablet 0.5 tablet = 0.25 mg, By Mouth, 2 times a day, PRN as needed for anxiety, # 20 tablet, 1 Refills, Maintenance, 05/16/19 23:11:00 EDT, Tablet, [facility] #[id number], 162.56, cm, 05/03/19 16:30:00 EST, Height, 72.3, kg, 09/26/18 16:01:00 EDT, Dry... Start Date: 05/16/19 Status: Ordered losartan 100 mg oral tablet 1 tablet, By Mouth, Daily, # 30 tablet, 2 Refills, [facility] #74501, 162, cm, 06/19/21 15:40:00 EDT, Height, 86.3, kg, 09/29/20 15:30:00 EDT, Dry Weight Start Date: 07/10/21 Status: Ordered meclizine 25 mg oral tablet 1 tablet = 25 mg, By Mouth, 2 times a day, # 30 tablet, 1 Refills, Maintenance, 07/10/21 17:25:00 EDT, Tablet, [facility] #[id number], 162, cm, 06/19/21 15:40:00 EDT, Height, 86.3, kg, 09/29/20 15:30:00 EDT, Dry Weight Start Date: 07/10/21 Status: Ordered multivitamin with iron Multiple Vitamins with Iron oral tablet 1 tablet, By Mouth, Daily, # 30 tablet, 11 Refills, Maintenance, 05/07/21 9:45:00 EST, Tablet, [facility] #62122, Partial fill upon patient request if the prescription is for a schedule II opioid drug., 1 tablet By Mouth Daily, 162, cm, 030... Start Date: 05/07/21 Status: Ordered Narcan 4 mg/0.1 mL nasal spray = 4 mg, Inhalation, Once, # 2 each, 1 Refills, Soft Stop, 10/29/20 12:23:00 EDT, [facility] #28685, Partial fill upon patient request if the [...] each, 0 Refills, Maintenance, 06/04/20 16:46:00 EDT, [facility] #49546, OK to sub for any gallon prep, used as directed, 162.56, cm, 05/23/20 14:31:00 EDT, Height, 77, kg, 03/21/20 15:04:00 EST, Dry We... Start Date: 06/04/20 Status: Ordered predniSONE 50 mg oral tablet 1 tablet = 50 mg, By Mouth, Daily, # 7 tablet, 0 Refills, Maintenance, 01/28/21 16:37:00 EST, Tablet, [facility], Partial fill upon patient request if the prescription is for a schedule II opioid drug., 162, cm, 01/28/21 16:02:00 E... Start Date: 01/28/21 Stop Date: 02/04/21 Status: Ordered Senna 8.6 mg oral tablet 1-3 tablet, By Mouth, Daily, for constipation, # 90 tablet, Refills 5, Tot. Refills 5, Maintenance,03/26/20 15:25:00 EST, Route to Pharmacy Electronically, [facility] #[id number] Tablet, 162.56, cm, 03/21/20 15:01:00 EST, Height, [...] 5 Refills, Maintenance, 04/24/21 12:36:00 EST, Tablet, [facility] #[id number], STOP HCTZ, 162, cm, 03/24/21 18:41:00 EST, [...] dissolve under the tongue increase in dose Dino [id number] due on/after 07/03/2021, # 35 film, 0 Refills, Maintenance, 07/03/21 13:32:00 EDT, Film, [facility]#82003, 2.5 film Sublingual Daily,x14 days,Inst... Start Date: 07/03/21 Stop Date: 07/17/21 Status: Ordered SUMAtriptan 25 mg oral tablet 1 tablet = 25 mg, By Mouth, Daily, PRN as needed for migraine headache, may repeat dose after 2 hours up to a maximum of 2, # 6 tablet, 1 Refills, Maintenance, 03/02/20 19:47:00 EST, Tablet, [facility] #[id number], 162.56, cm, 01/04/20 9:40:00 ES... Start Date: 03/02/20 Status: Ordered Zofran 4 mg oral tablet 1 tablet = 4 mg, By Mouth, 2 times a day, PRN Nausea & Vomiting, # 10 tablet, 1 Refills, Maintenance, 06/19/21 17:01:00 EDT, Tablet, [facility] #[id number], 162, cm, 06/19/21 15:40:00 EDT, Height, 86.3, kg, 09/29/20 15:30:00 EDT, Dry Weight Start Date: 06/19/21 Status: Ordered zolpidem 5 mg oral tablet 1 tablet = 5 mg, By Mouth, Daily at bedtime, PRN as needed for sleep, # 30 tablet, 0 Refills, Maintenance, 06/28/21 16:47:00 EDT, [id number], Partial fill upon patient request if theprescription is for a schedule II opioid drug., 162... Start Date: 06/28/21 Status: Ordered Problem List Condition Effective Dates [...] Obese class I(Confirmed) Active Opioid dependence(Confirmed) Active *[id number] Care Partn April Saavedra(Confirmed) Active Health care [...] tolerance, and QD need over. 2genotype 02/02: [id number] is only mutation detected 3death of sister, caring for mother w/ dementia 4repeat screening colonoscopy in 2020 Social History Social History Type Response Smoking Status Former smoker, quit more than 30 days ago entered on: 10/29/20 Sex
--- OUTSIDE RECORDS SUMMARY | 2022-12-13 21:28 | XMS_ITS | Continuity of Care Document ---
Author Name Unknown Organization [facility] Address [address] [place] [address]- Care Team Providers Care [employer] Weaver Name Role Phone Dino PEREZ, Kahlil Barrera Primary Care Physician Encounter [facility] Date(s): 01/12/20 - 02/11/20 [facility] De Annabelle [address] [place] [id number]- Allergies, Adverse Reactions, Alerts Substance Reaction Severity Status amitriptyline 1 Mental status Active aspirin 2 facial edema and sob Severe Active nevirapine Active Levaquin 3 Active Ziagen Active 1dreaming, near halliucinations 2facial edema and sob 3itchy, nervous Immunizations Given and Recorded Vaccine Date Status Refusal Reason pneumococcal 23-valent vaccine 09/21/19 Given influenza virus vaccine, inactivated 1 12/17/18 Re [...] 03/10/01 Given 1Result Comment: pharmacy 2Location History: [facility] 3Admin Note: vis 08/31/11 4Admin Note: ADMIN.BY [...] tablet, 5 Refills, Maintenance, 01/26/20 16:20:00 EST, [facility], 162.56, cm, 10/09/19 10:36:00 EDT, Height, 72.3, kg, 09/26/18 16:01:00 EDT, Dry Weight Start Date: 01/26/20 Stop Date: 02/25/20 Status: Ordered albuterol 0.083% inhalation solution 3 mL = 2.5 mg, Inhalation, Every 6 hours, PRN Wheezing/Shortness of Breath, # 60 each, 0 Refills, Maintenance, 06/07/19 14:59:00 EDT, Solution, [facility] #[id number], 162.56, cm, 05/03/19 16:30:00 EST, Height, 72.3, kg, 09/26/18 16:01:00 EDT, . Start Date: 06/07/19 Status: Ordered Biktarvy oral tablet 1 tablet, By Mouth, Daily, # 30 tablet, 11 Refills, Maintenance, 06/29/19 16:26:00 EDT, [facility] #[id number], 1 tablet By Mouth Daily, 162.56, cm, 05/03/19 16:30:00 EST, Height, 72.3, kg, 09/26/18 16:01:00 EDT, Dry Weight Start Date: 06/29/19 Status: Ordered Blood Pressure Meter Blood Pressure Meter, See Instructions, # 1 each, Refills 0, Tot. Refills 0, Maintenance, Use for, 07/11/18 16:11:47 EDT, Compound Start Date: 07/11/18 Status: Ordered buprenorphine-naloxone 2 mg-0.5 mg sublingual film 1 film, Sublingual, Daily, Dino [id number], # 14 film, 0 Refills, Maintenance, 02/08/20 16:47:00 EST, [facility] #[id number], Partial fill on request., 1 film Sublingual Daily,Instr:[place] [id number], 162.56, cm, 01/04/20 9:40:00 EST, Height, 7... Start Date: 02/08/20 Status: Ordered buprenorphine-naloxone 2 mg-0.5 mg sublingual film 0.25 each, Sublingual, Daily, Dino [id number], # 8 film, 0 Refills, Maintenance, 12/15/19 19:00:00 EDT, [facility] #[id number], Partial fill on request., 0.25 each Sublingual Daily,Instr:Dino [id number], 162.56, cm, 10/09/19 10:36:00 EDT, Hei... Start Date: 12/15/19 Status: Ordered cetirizine 10 mg oral tablet 1 tablet = 10 mg, By Mouth, Daily, For allergies., # 30 tablet, 2 Refills, Maintenance, 06/29/19 16:02:00 EDT, Tablet, [facility] #[id number], 162.56, cm, 05/03/19 16:30:00 EST, Height, 72.3, kg, 09/26/18 16:01:00 EDT, Dry Weight Start Date: 06/29/19 Status: Ordered cloNIDine 0.1 mg oral tablet 0.1 mg, 1, tablet, By Mouth, 3 times a day, as needed for anxiety, # 25 tablet, Refills 0, Tot. Refills 0, Maintenance, 10/10/19 21:36:00 EDT, Route to Pharmacy Electronically, [facility] #[id number], 162.56, cm, 10/09/19 10:36:00 EDT, Height, 72... [...] Gm, 5 Refills, Maintenance, 07/19/19 15:19:00 EDT, [place], [facility] #[id number], 2 sprays Nares, Both Daily in AM,x30 days, 162.56, cm, 05/03/19 16:30:00 EST, Height, 72.3, kg, 09/26/18 16:01:00 EDT, Dry... Start Date: 07/19/19 Stop Date: 01/15/20 Status: Ordered Flovent HFA 44 mcg/inh inhalation aerosol 1 puffs, Inhalation, 2 times a day, # 1 each, 5 Refills, Maintenance, 06/29/19 16:26:00 EDT, Aerosol, [facility] #[id number], 162.56, cm, 05/03/19 16:30:00 EST, Height, 72.3, [...] Instructions, # 1 each, Maintenance, covering for [facility] Blood pressure monitor neededto monitor [...] Daily, # 30 tablet, 5 Refills, Maintenance, 09/11/19 10:29:00 EDT, Tablet, [facility] #[id number], 30 day supply preferred for present, 162.56, cm, 09/06/19 16:09:00 EDT, Height, 72.3, kg, 09/26/18 16:01:00 EDT, Dry... Start Date: 09/11/19 Status: Ordered Liletta 52 mg intrauterine device See Instructions, 1 each Once, # 1 each, 0 Refills, Soft Stop, 07/11/18 16:17:37 EDT Start Date: 07/11/18 Status: Ordered loratadine 10 mg oral tablet 10 mg, 1, tablet, By Mouth, Daily, PRN, # 30 tablet, Refills 3, Tot. Refills 3, Maintenance, allergy/itch, 05/12/18 14:45:33 EDT, Route to Pharmacy Electronically, [id number], [facility] Start Date: 05/12/18 Status: Ordered LORazepam 0.5 mg oral tablet 0.5 tablet = 0.25 mg, By Mouth, 2 times a day, PRN as needed for anxiety, # 20 tablet, 1 Refills, Maintenance, 05/16/19 23:11:00 EDT, Tablet, [facility] #[id number], 162.56, cm, 05/03/19 16:30:00 EST, Height, 72.3, kg, 09/26/18 16:01:00 EDT, Dry... Start Date: 05/16/19 Status: Ordered losartan 100 mg oral tablet 1 tablet = 100 mg, By Mouth, Daily, # 30 tablet, 11 Refills, Maintenance, 06/29/19 15:59:00 EDT, Tablet, [facility] #[id number], 162.56, cm, 05/03/19 16:30:00 EST, Height, 72.3, kg, 09/26/18 16:01:00 EDT, Dry Weight Start Date: 06/29/19 Status: Ordered meclizine 25 mg oral tablet 1 tablet = 25 mg, By Mouth, 2 times a day, # 30 tablet, 1 Refills, Maintenance, 03/30/19 15:49:00 EST, Tablet, [facility] #[id number], 162.56, cm, 03/08/19 14:34:00 EST, Height, 72.3, kg, 09/26/18 16:01:00 EDT, Dry Weight Start Date: 03/30/19 Status: Ordered pantoprazole 20 mg oral delayed release tablet 1 tablet = 20 mg, By Mouth, Daily in AM, take 30 minutes before first meal, # 30 tablet, 2 Refills,Maintenance, 11/13/19 11:45:00 EDT, CR Tablet, 162.56, cm, 10/09/19 10:36:00 EDT, Height, 72.3, kg,09/26/18 16:01:00 EDT, Dry Weight Start Date: 11/13/19 Status: Ordered ProAir HFA 90 mcg/inh inhalation aerosol with adapter 2, puffs, Inhalation, Every 4 hours, PRN, use with spacer chamber, # 1 each, Refills 0, Tot. Refills 0, Maintenance, 06/07/19 15:00:00 EDT, Aerosol, Route to Pharmacy Electronically, [id number], [facility] #[id number], 1... Start Date: 06/07/19 Status: Ordered Senna 8.6 mg oral tablet 1-3 tablet, By Mouth, Daily, for constipation, # 90 tablet, Refills 5, Tot. Refills 5, Maintenance,02/17/18 15:12:45 EST, Route to Pharmacy Electronically, [id number], [facility] Tablet Start Date: 02/17/18 Status: Ordered Spacer for inhalers Spacer for inhalers, See Instructions, # 1 each, Refills 0, Tot. Refills 0, Maintenance, Use with inhalers as directed. [place]., 06/07/19 15:07:00 EDT, Compound, 162.56, cm, 05/03/19 16:30:00 EST, Height, 72.3, kg, 09/26/18 16:01:00 EDT, Dry Weight Start Date: 06/07/19 Status: Ordered SUMAtriptan 25 mg oral tablet 1 tablet = 25 mg, By Mouth, Daily, PRN as needed for migraine headache, may repeat dose after 2 hours up to a maximum of 2, # 6 tablet, 1 Refills, Maintenance, 04/18/19 13:31:00 EST, Tablet, [facility] #[id number], 162.56, cm, 03/08/19 14:34:00 E... Start Date: 04/18/19 Status: Ordered Zofran 4 mg oral tablet 1 tablet = 4 mg, By Mouth, 2 times a day, PRN Nausea & Vomiting, # 10 tablet, 0 Refills, Maintenance, 01/15/20 10:22:00 EST, Tablet, [facility], 162.56, cm, 01/04/20 9:40:00 EST, Height, 72.3, kg, 09/26/18 16:01:00 EDT, Dry Weight Start Date: 01/15/20 Status: Ordered zolpidem 5 mg oral tablet [...] 2016 Active Migraine(Confirmed) Active Opioid dependence(Confirmed) Active *[id number] Care Partn er April Saavedra(Confirmed) Active Health [...] tolerance, and QD need over. 2genotype 02/02: [id number] is only mutation detected 3death of sister, caring for mother w/ dementia 4repeat screening colonoscopy in 2020 Social History Social History Type Response Smoking Status Former smoker, quit more than 30 days ago entered on: 05/24/18 Sex
--- OUTSIDE RECORDS SUMMARY | 2022-12-13 21:28 | XMS_ITS | Continuity of Care Document ---
Author Name Unknown Organization [facility] Address Unknown Care Team Providers Care Furniture [employer]sembl[employer] Installer Name Role Phone Kahlil Sun MD Primary Care Physician [place] [facility] [place] 12/24/20 - 01/30/21 [facility] Attending Physician: Kahlil Sun MD Admitting [...] toxoids (Td) 03/10/01 Given 1Result Comment: #2, [facility] 2Result Comment: [facility] 3Result Comment: [facility] 4Result Comment: pharmacy 5Location History: [place] 6Admin Note: vis 08/31/11 7Admin Note: ADMIN.BY RN 8Admin Note: Admin. by RN 9Admin Note: Admin. by RN 10Admin Note: Admin. by RN 11Admin Note: vis 06/15/15 12Admin Note: dose #6 (3rd in 2nd series) 13Admin Note: dose #5 14Admin Note: #3 15Admin Note: LITO [employer] 16Admin Note: ADMIN BEN, KINESEOLOGIST 17Admin Note: BY LEXI Agudelo 18Admin Note: [...] 1 Refills, Maintenance, 09/12/20 16:18:00EDT, CR Tablet, [facility] #[id number], Partial fill upon patient request if the prescription is for a schedule II opioid drug., 162, cm, 09/12/20... Start Date: 09/12/20 Status: Ordered acyclovir 400 mg oral tablet 1 tablet = 400 mg, By Mouth, 2 times a day, # 10 tablet, 5 Refills, Maintenance, 01/08/21 18:41:00 EST, [facility] #[id number], 162, cm, 12/17/20 23:19:00 EDT, Height, 86.3, kg, 09/29/20 15:30:00 EDT, Dry Weight Start Date: 01/08/21 Stop Date: 02/07/21 Status: Ordered Albuterol (Eqv-ProAir HFA) 90 mcg/inh inhalation aerosol 2 puffs, Inhalation, Every 4 hours, PRN NEEDED FOR WHEEZING/SHORTNESS OF BREATH, USE WITH SPACERCHAMBER, # 8.5 Gm, 5 Refills, [facility] #[id number], 16, INHALE 2 PUFFS INTO LUNGS EVERY 4 HOURS NEEDED FOR WHEEZING/SHORTNESS OF BREATH. USE... Start Date: 11/13/20 Status: Ordered albuterol 0.083% inhalation solution 3 mL = 2.5 mg, Inhalation, Every 6 hours, PRN Wheezing/Shortness of Breath, # 60 each, 0 Refills, Maintenance, 06/07/20 12:51:00 EDT, Solution, [facility] #[id number], 162.56, cm, 05/23/20 14:31:00 EDT, Height, 77, [...] tablet, 3 Refills, Maintenance, 03/02/20 19:50:00 EST, [facility] #[id number], 1 tablet By Mouth Daily, 162.56, cm, [...] 2 Refills, Maintenance, 06/29/19 16:02:00 EDT, Tablet, [facility] #[id number], 162.56, cm, 05/03/19 16:30:00 EST, Height, 72.3, kg, 09/26/18 16:01:00 EDT, Dry Weight Start Date: 06/29/19 Status: Ordered cloNIDine 0.1 mg oral tablet 0.1 mg, 1, tablet, By Mouth, 3 times a day, as needed for anxiety, # 25 tablet, Refills 0, Tot. Refills 0, Maintenance, 10/10/19 21:36:00 EDT, Route to Pharmacy Electronically, [facility] #[id number], 162.56, cm, 10/09/19 10:36:00 EDT, Height, 72... Start Date: 10/10/19 Status: Ordered Dulera 200 mcg-5 mcg/inh inhalation aerosol 2 puffs, Inhalation, 2 times a day, # 1 each, 3 Refills, Maintenance, 01/28/21 16:44:00 EST, Aerosol, [facility], STOP FLOVENT, 2 puffs Inhalation 2 [...] Gm, 5 Refills, Maintenance, 07/19/19 15:19:00 EDT, [place], [facility] #[id number], 2 sprays Nares, Both Daily in AM,x30 days, 162.56, cm, 05/03/19 16:30:00 EST, Height, 72.3, kg, 09/26/18 16:01:00 EDT, Dry... Start Date: 07/19/19 Stop Date: 01/15/20 Status: Ordered fluconazole 150 mg oral tablet 1 tablet = 150 mg, By Mouth, Once, # 1 tablet, 1 Refills, Soft Stop, 01/08/21 19:37:00 EST, Tablet,[facility] #[id number], 162, cm, 12/17/20 23:19:00 EDT, Height, 86.3, [...] 01/28/21 16:28:00 EST, Route to Pharmacy Electronically, [facility], STOP HCTZ, 162, cm, 01/28/21 16:02:00 [...] Instructions, # 1 each, Maintenance, covering for [facility] Blood pressure monitor neededto monitor blood [...] 3 Refills, Maintenance, 03/02/20 19:48:00 EST, Tablet, [facility] #[id number], 30 day supply preferred for present, 162.56, [...] 05/12/18 14:45:33 EDT, Route to Pharmacy Electronically, [id number], [facility] Start Date: 05/12/18 Status: Ordered LORazepam 0.5 mg oral tablet 0.5 tablet = 0.25 mg, By Mouth, 2 times a day, PRN as needed for anxiety, # 20 tablet, 1 Refills, Maintenance, 05/16/19 23:11:00 EDT, Tablet, [facility] #[id number], 162.56, cm, 05/03/19 16:30:00 EST, Height, 72.3, kg, 09/26/18 16:01:00 EDT, Dry... Start Date: 05/16/19 Status: Ordered losartan 100 mg oral tablet 1 tablet, By Mouth, Daily, # 30 tablet, 5 Refills, Maintenance, 09/24/20 16:00:00 EDT, [facility] #[id number], 162, cm, 09/19/20 15:59:00 EDT, Height, 82.1, kg, 06/08/20 17:25:00 EDT, Dry Weight Start Date: 09/24/20 Status: Ordered meclizine 25 mg oral tablet 1 tablet = 25 mg, By Mouth, 2 times a day, # 30 tablet, 1 Refills, Maintenance, 03/30/19 15:49:00 EST, Tablet, [facility] #[id number], 162.56, cm, 03/08/19 14:34:00 EST, Height, 72.3, kg, 09/26/18 16:01:00 EDT, Dry Weight Start Date: 03/30/19 Status: Ordered Narcan 4 mg/0.1 mL nasal spray = 4 mg, Inhalation, Once, # 2 each, 1 Refills, Soft Stop, 10/29/20 12:23:00 EDT, [facility] #[id number], Partial fill upon patient request if the [...] each, 0 Refills, Maintenance, 06/04/20 16:46:00 EDT, [facility] #[id number], OK to sub for any gallon prep, used as directed, 162.56, cm, 05/23/20 14:31:00 EDT, Height, 77, kg, 03/21/20 15:04:00 EST, Dry We... Start Date: 06/04/20 Status: Ordered predniSONE 50 mg oral tablet 1 tablet = 50 mg, By Mouth, Daily, # 7 tablet, 0 Refills, Maintenance, 01/28/21 16:37:00 EST, Tablet, [facility], Partial fill upon patient request if the prescription is for a schedule II opioid drug., 162, cm, 01/28/21 16:02:00 E... Start Date: 01/28/21 Stop Date: 02/04/21 Status: Ordered Senna 8.6 mg oral tablet 1-3 tablet, By Mouth, Daily, for constipation, # 90 tablet, Refills 5, Tot. Refills 5, Maintenance,03/26/20 15:25:00 EST, Route to Pharmacy Electronically, [facility] #[id number] Tablet, 162.56, cm, 03/21/20 15:01:00 EST, Height, [...] 4 Refills, Maintenance, 01/28/21 16:29:00 EST, Tablet, [facility], STOP HCTZ, 162, cm, 01/28/21 16:02:00 [...] under the tongue increase in dose 01/22/2021 [id number], # 60 film, 0 Refills, Maintenance, 01/22/21 13:49:00 EST, Film, [facility] #[id number], Partial fill upon patient request if the prescription is for a... Start Date: 01/22/21 Status: Ordered SUMAtriptan 25 mg oral tablet 1 tablet = 25 mg, By Mouth, Daily, PRN as needed for migraine headache, may repeat dose after 2 hours up to a maximum of 2, # 6 tablet, 1 Refills, Maintenance, 03/02/20 19:47:00 EST, Tablet, [facility] #[id number], 162.56, cm, 01/04/20 9:40:00 ES... Start Date: 03/02/20 Status: Ordered Zofran 4 mg oral tablet 1 tablet = 4 mg, By Mouth, 2 times a day, PRN Nausea & Vomiting, # 10 tablet, 0 Refills, Maintenance, 12/01/20 20:26:00 EDT, Tablet, [facility] #[id number], 162, cm, 10/29/20 17:08:00 EDT, Height, 86.3, [...] Obese class II(Confirmed) Active Opioid dependence(Confirmed) Active *[id number] Care Partn renee Saavedra(Confirmed) Active Health care [...] tolerance, and QD need over. 2genotype 02/02: [id number] is only mutation detected 3death of sister, caring for mother w/ dementia 4repeat screening colonoscopy in 2020 Social History Social History Type Response Smoking Status Former smoker, quit more than 30 days ago entered on: 10/29/20 Sex
--- OUTSIDE RECORDS SUMMARY | 2022-12-13 21:28 | XMS_ITS | Continuity of Care Document ---
Author Name Unknown Organization 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 [address]- [place] Allergies, Adverse Reactions, Alerts Substance Reaction Severity Status Ziagen Active Levaquin 1 Active amitriptyline 2 Mental status Active aspirin 3 facial edema and sob Severe Active nevirapine Active 1itchy, nervous 2dreaming, near halliucinations 3facial edema and sob Immunizations Given and [...] events reported or observed. 2Result Comment: #2, [facility] 3Result Comment: [facility] 4Result Comment: pharmacy 5Location History: [facility] 6Admin Note: vis 08/31/11 7Admin Note: ADMIN.BY RN 8Result Comment: formerly [facility] 9Admin Note: Admin. by RN 10Admin Note: Admin. by RN 11Admin Note: Admin. by RN 12Admin Note: vis 06/15/15 13Admin Note: dose #6 (3rd in 2nd series) 14Admin Note: dose #5 15Admin Note: #3 16Admin Note: LITO sanofi-pasteur 17Admin Note: ADMIN BEN, PRE SALES SYSTEMS ENGINEER 18Admin Note: BY JEA R.N 19Admin Note: [...] 5 Refills, Maintenance, 12/05/21 14:43:00EDT, CR Tablet, [facility] #[id number], Partial fill upon patient request if the prescription is for a schedule II opioid drug., 162.56, cm, 12/05... Start Date: 12/05/21 Status: Ordered acyclovir 400 mg oral tablet 1 tablet = 400 mg, By Mouth, 2 times a day, # 10 tablet, 5 Refills, Maintenance, 01/08/21 18:41:00 EST, [facility] #[id number], 162, cm, 12/17/20 23:19:00 EDT, Height, 86.3, kg, 09/29/20 15:30:00 EDT, Dry Weight Start Date: 01/08/21 Stop Date: 02/07/21 Status: Ordered Albuterol (Eqv-ProAir HFA) 90 mcg/inh inhalation aerosol 2 puffs, Inhalation, Every 4 hours, PRN NEEDED FOR WHEEZING/SHORTNESS OF BREATH, USE WITH SPACERCHAMBER, # 8.5 Gm, 5 Refills, [facility] #[id number], 16, INHALE 2 PUFFS INTO LUNGS EVERY 4 HOURS NEEDED FOR WHEEZING/SHORTNESS OF BREATH. USE... Start Date: 11/13/20 Status: Ordered albuterol 0.083% inhalation solution 3 mL = 2.5 mg, Inhalation, Every 6 hours, PRN Wheezing/Shortness of Breath, # 60 each, 0 Refills, Maintenance, 06/07/20 12:51:00 EDT, Solution, [facility] #[id number], 162.56, cm, 05/23/20 14:31:00 EDT, Height, 77, [...] 01/04/22 19:11:00 EST, Route to Pharmacy Electronically, [facility] #[id number], 162.56, cm, 11/0... Start Date: 01/04/22 Status: Ordered Biktarvy oral tablet 1 tablet, By Mouth, Daily, # 30 tablet, 12 Refills, Maintenance, 04/17/22 7:54:00 EST, [facility] #[id number], 1 tablet By Mouth Daily, 162.56, cm, [...] 1 Refills, Maintenance, 07/10/21 18:35:00 EDT, Tablet, [facility] #[id number], Partial fill upon patient request if the prescription is for a schedule II opioid drug., 162, cm, 06/19/21 15:40:00 EDT... Start Date: 07/10/21 Status: Ordered cloNIDine 0.1 mg oral tablet 1, tablet, By Mouth, 3 times a day, PRN, # 270 tablet, Refills 0, Tot. Refills 0, Maintenance, NEEDED FOR ANXIETY, 05/13/22 16:45:00 EDT, Route to Pharmacy Electronically, [facility] #[id number], 162.56, cm, 05/07/22 12:32:00 EST, Height, 87.6... Start Date: 05/13/22 Status: Ordered Colace Clear 50 mg oral capsule 1 capsule = 50 mg, By Mouth, 2 times a day, PRN as needed for constipation, # 60 capsule, 0 Refills, Maintenance, 12/05/21 15:09:00 EDT, [facility] #[id number], Partial fill upon patient requestif the prescription is for a schedule II opioid nhi... Start Date: 12/05/21 Status: Ordered diclofenac 1% topical gel = 2 Gm, Topically, 4 times a day, PRN for pain, not to exceed: 10 gm/day, # 100 Gm, 1 Refills, Maintenance, 05/29/21 16:52:00 EDT, Gel, [facility], Partial fill upon patient request if the prescription is for a schedule II opioid... Start Date: 05/29/21 Status: Ordered Dulera 200 mcg-5 mcg/inh inhalation aerosol 2 puffs, Inhalation, 2 times a day, # 1 each, 3 Refills, Maintenance, 01/28/21 16:44:00 EST, Aerosol, [facility], STOP FLOVENT, 2 puffs Inhalation 2 times a day,x30 days, 162, cm,01/28/21 16:02:00 EST, Height, 86.3, kg, 09/29/20 1... Start Date: 01/28/21 Stop Date: 05/28/21 Status: Ordered escitalopram 10 mg oral tablet 1 tablet = 10 mg, By Mouth, Daily, # 30 tablet, 11 Refills, Maintenance, 04/16/22 16:59:00 EST, Tablet, [facility] #[id number], Partial fill upon patient request if the [...] Gm, 5 Refills, Maintenance, 07/19/19 15:19:00 EDT, [place], [facility] #[id number], 2 sprays Nares, Both Daily in AM,x30 [...] Replace Required Details, Route to Pharmacy Electronically, [facility] #[id number], 162.56, cm,... Start Date: 11/27/21 Status: Ordered [...] Replace Required Details, Route to Pharmacy Electronically, [facility] . Start Date: 04/16/22 Status: Ordered Glucose [...] # 1 each, Maintenance[facility] pressure monitor neededto monitor blood pressure DX: hypertension, 07/11/18 17:28:42 EDT, Compound Start Date: 07/11/18 Status: Ordered humidifier humidifier, See Instructions, # 1 each, Refills 0, Tot. Refills 0, Maintenance, use as directed forchronic sinusitis J32, 04/09/17 14:21:37 EST, Compound Start Date: 04/09/17 Status: Ordered losartan 100 mg oral tablet 1 tablet, By Mouth, Daily, # 30 tablet, 5 Refills, [facility] #[id number], 162, cm, 10/09/21 16:19:00 EDT, Height, 86.3, kg, 09/29/20 15:30:00 EDT, Dry Weight Start Date: 10/20/21 Status: Ordered meclizine 25 mg oral tablet 1 tablet = 25 mg, By Mouth, 2 times a day, # 30 tablet, 1 Refills, Maintenance, 07/10/21 17:25:00 EDT, Tablet, [facility] #[id number], 162, cm, 06/19/21 15:40:00 EDT, Height, 86.3, kg, 09/29/20 15:30:00 EDT, Dry Weight Start Date: 07/10/21 Status: Ordered multivitamin with iron Multiple Vitamins with Iron oral tablet 1 tablet, By Mouth, Daily, # 30 tablet, 11 Refills, Maintenance, 04/17/22 7:51:00 EST, Tablet, [facility] #[id number], 1 tablet By Mouth Daily, 162.56, cm, 04/16/22 16:00:00 EST, Height, 87.6, kg, 10/24/21 8:00:00 EDT, Dry Weight Start Date: 04/17/22 Status: Ordered Narcan 4 mg/0.1 mL nasal spray = 4 mg, Inhalation, Once, # 2 each, 1 Refills, Soft Stop, 10/29/20 12:23:00 EDT, [facility] #[id number], Partial fill upon patient request if the prescription is for a schedule II opioid drug., 162, cm, 09/29/20 15:30:00 EDT, Height, 86.3, kg, 08... Start Date: 10/29/20 Status: Ordered ondansetron 4 mg oral tablet 1 tablet = 4 mg, By Mouth, Daily, PRN Nausea & Vomiting, # 10 tablet, 3 Refills, Maintenance, 04/16/22 17:07:00 EST, [facility] #[id number], 162.56, cm, 04/16/22 16:00:00 EST, Height, 87.6, [...] each, 0 Refills, Maintenance, 06/04/20 16:46:00 EDT, [facility] #[id number], OK to sub for any gallon prep, used as directed, 162.56, cm, 05/23/20 14:31:00 EDT, Height, 77, kg, 03/21/20 15:04:00 EST, Dry We... Start Date: 06/04/20 Status: Ordered Senna 8.6 mg oral tablet 1-3 tablet, By Mouth, Daily, for constipation, # 90 tablet, Refills 5, Tot. Refills 5, Maintenance,03/26/20 15:25:00 EST, Route to Pharmacy Electronically, [facility] #[id number] Tablet, 162.56, cm, 03/21/20 15:01:00 EST, Height, [...] tablet, 5 Refills, Maintenance, 04/17/22 7:53:00 EST, [facility] #[id number], 162.56, cm, 04/16/22 16:00:00 EST, Height, 87.6, kg, 10/24/21 8:00:00 EDT, Dry Weight Start Date: 04/17/22 Status: Ordered Suboxone 8 mg-2 mg Sublingual Film 2.5 film, Sublingual, Daily, dissolve under the tongue increase in dose Lawlernyla [id number] coveringfor [place] due on/after 08/22/2021, # 35 film, 0 Refills, Maintenance, 08/22/21 9:27:00 EDT, Film,[facility], 2.5 film Subli... Start Date: 08/22/21 Stop Date: 09/05/21 Status: Ordered Suboxone 8 mg-2 mg Sublingual Film 2 film, Sublingual, Daily, dissolve under the tongue may fill less due 05/27/2022, # 14 film, 0 Refills, Maintenance, 05/28/22 8:17:00 EDT, Film, [facility], 2 film Sublingual Daily,x7 days,Instr:dissolve under the tongue; may fi... Start Date: 05/28/22 Stop Date: 06/04/22 Status: Ordered SUMAtriptan 25 mg oral tablet 1 tablet = 25 mg, By Mouth, Daily, PRN as needed for migraine headache, may repeat dose after 2 hours up to a maximum of 2, # 6 tablet, 1 Refills, Maintenance, 03/02/20 19:47:00 EST, Tablet, [facility] #[id number], 162.56, cm, 01/04/20 9:40:00 ES... Start Date: 03/02/20 Status: Ordered zolpidem 5 mg oral tablet 1 tablet = 5 mg, By Mouth, Daily at bedtime, PRN as needed for sleep, # 30 tablet, 1 Refills, Maintenance, 05/16/22 22:14:00 EDT, [facility] #[id number], 162.56, cm, 05/07/22 12:32:00 EST, Height, 87.6, [...] disorder Confirmed Active Opioid dependence Confirmed Active *[id number] Tube Buffer April Saavedra Confirmed Active Health care maintenance [...] tolerance, and QD need over. 2genotype 02/02: [id number] is only mutation detected 3death of sister, caring for mother w/ dementia 4repeat screening colonoscopy in 2020 Social History Social History Type Response Smoking Status Former smoker, quit more than 30 days ago entered on: 12/05/21 Sex Patient Care team information Care Team Personnel Name: Kahlil Sun MD Position: [facility] Primary Care Physician Member Role: PCP Address: Address: [address] [place] [address] Name: Sharri Prince Position: [facility] PCO Associate Professional Member Role: Lifetime Consulting Provider Care Team Related Persons Name: SHANITA MENDOZA Address: [address] [place] [address] Name: SHANITA MENDOZA Address: home [address] Name: ULICES PEARSON Name: ULICES ESPARZA Address: [place] [address] Name: LALA LI
--- OUTSIDE RECORDS SUMMARY | 2022-12-13 21:28 | XMS_ITS | Continuity of Care Document ---
Author Name Unknown Organization [facility] Address Unknown Care Team Providers Care Clinical Academic Allergist Name Role Phone Kahlil Sun MD Primary Care Physician [phone] Encounter [facility] Date(s): 11/01/20 - 12/01/20 [facility] Allergies, Adverse Reactions, Alerts Substance Reaction [...] toxoids (Td) 03/10/01 Given 1Result Comment: #2, [facility] 2Result Comment: [facility] 3Result Comment: [facility] 4Result Comment: pharmacy 5Location History: [facility] 6Admin Note: vis 08/31/11 7Admin Note: ADMIN.BY RN 8Admin Note: Admin. by RN 9Admin Note: Admin. by RN 10Admin Note: Admin. 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 Start Date: 09/12/20 Status: Ordered acyclovir 400 mg oral tablet 1 tablet = 400 mg, By Mouth, 2 times a day, # 10 tablet, 5 Refills, Maintenance, 01/26/20 16:20:00 EST, [facility], 162.56, cm, 10/09/19 10:36:00 EDT, Height, 72.3, kg, 09/26/18 16:01:00 EDT, Dry Weight Start Date: 01/26/20 Stop Date: 02/25/20 Status: Ordered Albuterol (Eqv-ProAir HFA) 90 mcg/inh inhalation aerosol 2 puffs, Inhalation, Every 4 hours, PRN NEEDED FOR WHEEZING/SHORTNESS OF BREATH, USE WITH SPACERCHAMBER, # 8.5 Gm, 5 Refills, [facility] #[id number], 16, INHALE 2 PUFFS INTO LUNGS EVERY 4 HOURS NEEDED FOR WHEEZING/SHORTNESS OF BREATH. USE... Start Date: 11/13/20 Status: Ordered albuterol 0.083% inhalation solution 3 mL = 2.5 mg, Inhalation, Every 6 hours, PRN Wheezing/Shortness of Breath, # 60 each, 0 Refills, Maintenance, 06/07/20 12:51:00 EDT, Solution, [facility] #[id number], 162.56, cm, 05/23/20 14:31:00 EDT, Height, 77, [...] tablet, 3 Refills, Maintenance, 03/02/20 19:50:00 EST, [facility] #[id number], 1 tablet By Mouth Daily, 162.56, cm, 01/04/20 9:40:00 EST, Height, 72.3, kg, 09/26/18 16:01:00 EDT, Dry Weight Start Date: 03/02/20 Status: Ordered Blood Pressure Meter Blood Pressure Meter, See Instructions, # 1 each, Refills 0, Tot. Refills 0, Maintenance, Use for, 07/11/18 16:11:47 EDT, Compound Start Date: 07/11/18 Status: Ordered buprenorphine-naloxone 2 mg-0.5 mg sublingual film 0.25 each, Sublingual, Daily, Will [id number], # 8 film, 0 Refills, Maintenance, 12/15/19 19:00:00 EDT, [facility] #59306, Partial fill on request., 0.25 each Sublingual Daily,Instr:Dino [id number], 162.56, cm, 10/09/19 10:36:00 EDT, Hei... Start Date: 12/15/19 Status: Ordered buprenorphine-naloxone 8 mg-2 mg sublingual film 1 film, Sublingual, Daily, dissolve under the tongue Scavron [id number] covering for Will [id number], # 7 film, 0 Refills, Maintenance, 11/27/20 12:26:00 EDT, Film, [facility], Partial fill upon patient request if the prescriptio... Start Date: 11/27/20 Stop Date: 12/04/20 Status: Ordered cetirizine 10 mg oral tablet 1 tablet = 10 mg, By Mouth, Daily, For allergies., # 30 tablet, 2 Refills, Maintenance, 06/29/19 16:02:00 EDT, Tablet, [facility] #80667, 162.56, cm, 05/03/19 16:30:00 EST, Height, 72.3, kg, 09/26/18 16:01:00 EDT, Dry Weight Start Date: 06/29/19 Status: Ordered cloNIDine 0.1 mg oral tablet 0.1 mg, 1, tablet, By Mouth, 3 times a day, as needed for anxiety, # 25 tablet, Refills 0, Tot. Refills 0, Maintenance, 10/10/19 21:36:00 EDT, Route to Pharmacy Electronically, [facility] #[id number], 162.56, cm, 10/09/19 10:36:00 EDT, Height, 72... [...] Gm, 5 Refills, Maintenance, 07/19/19 15:19:00 EDT, [place], [facility] #[id number], 2 sprays Nares, Both Daily in AM,x30 days, 162.56, cm, 05/03/19 16:30:00 EST, Height, 72.3, kg, 09/26/18 16:01:00 EDT, Dry... Start Date: 07/19/19 Stop Date: 01/15/20 Status: Ordered Flovent HFA 44 mcg/inh inhalation aerosol 1 puffs, Inhalation, 2 times a day, # 1 each, 5 Refills, Maintenance, 06/07/20 12:52:00 EDT, Aerosol, [facility] #74001, 162.56, cm, 05/23/20 14:31:00 EDT, Height, 77, [...] Instructions, # 1 each, Maintenance[facility] neededto monitor [...] 3 Refills, Maintenance, 03/02/20 19:48:00 EST, Tablet, [facility] #70553, 30 day supply preferred for present, 162.56, [...] 05/12/18 14:45:33 EDT, Route to Pharmacy Electronically, [id number], [facility] Start Date: 05/12/18 Status: Ordered LORazepam 0.5 mg oral tablet 0.5 tablet = 0.25 mg, By Mouth, 2 times a day, PRN as needed for anxiety, # 20 tablet, 1 Refills, Maintenance, 05/16/19 23:11:00 EDT, Tablet, [facility] #[id number], 162.56, cm, 05/03/19 16:30:00 EST, Height, 72.3, kg, 09/26/18 16:01:00 EDT, Dry... Start Date: 05/16/19 Status: Ordered losartan 100 mg oral tablet 1 tablet, By Mouth, Daily, # 30 tablet, 5 Refills, Maintenance, 09/24/20 16:00:00 EDT, [facility] #[id number], 162, cm, 09/19/20 15:59:00 EDT, Height, 82.1, kg, 06/08/20 17:25:00 EDT, Dry Weight Start Date: 09/24/20 Status: Ordered meclizine 25 mg oral tablet 1 tablet = 25 mg, By Mouth, 2 times a day, # 30 tablet, 1 Refills, Maintenance, 03/30/19 15:49:00 EST, Tablet, [facility] #86060, 162.56, cm, 03/08/19 14:34:00 EST, Height, 72.3, kg, 09/26/18 16:01:00 EDT, Dry Weight Start Date: 03/30/19 Status: Ordered Narcan 4 mg/0.1 mL nasal spray = 4 mg, Inhalation, Once, # 2 each, 1 Refills, Soft Stop, 10/29/20 12:23:00 EDT, [facility] #[id number], Partial fill upon patient request if the [...] each, 0 Refills, Maintenance, 06/04/20 16:46:00 EDT, [facility] #[id number], OK to sub for any gallon prep, used as directed, 162.56, cm, 05/23/20 14:31:00 EDT, Height, 77, kg, 03/21/20 15:04:00 EST, Dry We... Start Date: 06/04/20 Status: Ordered Senna 8.6 mg oral tablet 1-3 tablet, By Mouth, Daily, for constipation, # 90 tablet, Refills 5, Tot. Refills 5, Maintenance,03/26/20 15:25:00 EST, Route to Pharmacy Electronically, [facility] #[id number] Tablet, 162.56, cm, 03/21/20 15:01:00 EST, Height, 77, kg, ... Start Date: 03/26/20 Status: Ordered Spacer for inhalers Spacer for inhalers, See Instructions, # 1 each, Refills 0, Tot. Refills 0, Maintenance, Use with inhalers as directed. [place]., 06/07/19 15:07:00 EDT, Compound, 162.56, cm, 05/03/19 [...] 1 Refills, Maintenance, 03/02/20 19:47:00 EST, Tablet, [facility] #11155, 162.56, cm, 01/04/20 9:40:00 ES... Start Date: 03/02/20 Status: Ordered Zofran 4 mg oral tablet 1 tablet = 4 mg, By Mouth, 2 times a day, PRN Nausea & Vomiting, # 10 tablet, 0 Refills, Maintenance, 12/01/20 20:26:00 EDT, Tablet, [facility] #[id number], 162, cm, 10/29/20 17:08:00 EDT, Height, 86.3, [...] Active Opioid dependence(Confirmed) Active Opioid dependence(Confirmed) Active *[id number] Care Partn er April Saavedra(Confirmed) Active Health care maintenance(Confirmed) Active Routine screening for STI (s exually transmitted infection)(Confirmed) Active Diabetes mellitus screening(Confirmed) Active Diabetes mellitus screening(Confirmed) Active Portal hypertensive [...] tolerance, and QD need over. 2genotype 02/02: [id number] is only mutation detected 3death of sister, caring for mother w/ dementia 4repeat screening colonoscopy in 2020 Social History Social History Type Response Smoking Status Former smoker, quit more than 30 days ago entered on: 10/29/20 Sex
--- OUTSIDE RECORDS SUMMARY | 2022-12-13 21:28 | XMS_ITS | Continuity of Care Document ---
Author Name Unknown Organization [facility] Address [address] [place] [address]- Care Team Providers Care Awning Assembler Name Role Phone Kahlil Sun MD Primary Care Physician [place] [facility] [place] 12/[place]/22 [facility] [address]- Attending Physician: Kahlil Sun MD Admitting Physician: Kahlil Sun MD Allergies, Adverse Reactions, Alerts Substance Reaction Severity Status amitriptyline 1 Mental status Active aspirin 2 facial edema and sob Severe Active Ziagen Active Levaquin 3 Active nevirapine Active 1dreaming, near halliucinations 2facial edema and [...] [place] 4Result Comment: pharmacy 5Location History: [place] 6Admin Note: vis 08/31/11 7Admin Note: ADMIN.BY RN 8Result Comment: [facility] 9Admin Note: Admin. by RN 10Admin Note: Admin. by RN 11Admin Note: Admin. 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 USE... Start Date: 11/13/20 Status: Ordered albuterol 0.083% inhalation solution 3 mL = 2.5 mg, Inhalation, Every 6 hours, PRN Wheezing/Shortness of Breath, # 60 each, 0 Refills, Maintenance, 06/07/20 12:51:00 EDT, Solution, [facility] #[id number], 162.56, cm, 05/23/20 14:31:00 EDT, Height, 77, [...] 2 Refills, Maintenance, 08/30/22 11:09:00 EDT, Gel, [facility] #[id number], 1 applic... Start Date: 08/30/22 Status: Ordered benzoyl peroxide 2.5% topical gel 1 application, Topically, 2 times a day, keep away from eyes and mucous membranes. clean affected area before application. Start daily and increase to twice a day if tolerated., # 60 Gm, 3 Refills, Maintenance, 09/08/22 22:51:00 EDT, [facility]... Start Date: 09/08/22 Status: Ordered Biktarvy oral tablet 1 tablet, By Mouth, Daily, # 30 tablet, 12 Refills, Maintenance, 04/17/22 7:54:00 EST, [facility] #[id number], 1 tablet By Mouth Daily, 162.56, cm, 04/16/22 16:00:00 EST, Height, 87.6, kg, 10/24/21 8:00:00 EDT, Dry Weight Start Date: 04/17/22 Status: Ordered Biktarvy oral tablet See Instructions, TAKE 1 TABLET BY MOUTH DAILY, # 90 tablet, 0 Refills, Maintenance, 07/15/22 13:50:00 EDT, [facility] #[id number], 90, TAKE 1 TABLET BY MOUTH DAILY, [...] 1 Refills, Maintenance, 07/10/21 18:35:00 EDT, Tablet, [facility] #[id number], Partial fill upon patient request if the [...] 08/12/22 15:06:00 EDT, Route to Pharmacy Electronically, [facility] #[id number], 162.56, cm, 07/30/22 10:55:00 EDT, Height, 79.... Start Date: 08/12/22 Status: Ordered Colace Clear 50 mg oral capsule 1 capsule = 50 mg, By Mouth, 2 times a day, PRN as needed for constipation, # 60 capsule, 0 Refills, Maintenance, 12/05/21 15:09:00 EDT, [facility] #[id number], Partial fill upon patient requestif the prescription is for a schedule II opioid nhi... Start Date: 12/05/21 Status: Ordered diclofenac 1% topical gel = 2 Gm, Topically, 4 times a day, PRN for pain, not to exceed: 10 gm/day, # 100 Gm, 1 Refills, Maintenance, 05/29/21 16:52:00 EDT, Gel, [facility], Partial fill upon patient request if the prescription is for a schedule II opioid... Start Date: 05/29/21 Status: Ordered Dulera 200 mcg-5 mcg/inh inhalation aerosol 2 puffs, Inhalation, 2 times a day, # 1 each, 3 Refills, Maintenance, 01/28/21 16:44:00 EST, Aerosol, [facility], STOP FLOVENT, 2 puffs Inhalation 2 times a day,x30 days, 162, cm,01/28/21 16:02:00 EST, Height, 86.3, kg, 09/29/20 1... Start Date: 01/28/21 Stop Date: 05/28/21 Status: Ordered escitalopram 20 mg oral tablet 1 tablet = 20 mg, By Mouth, Daily, # 90 tablet, 3 Refills, Maintenance, 11/04/22 16:35:00 EDT, Tablet, [facility] #[id number], 162.56, cm, 10/20/22 7:18:00 EDT, Height, 79.54, kg, 07/30/22 10:55:00 EDT, Dry Weight Start Date: 11/04/22 Status: Ordered ferrous fumarate 324 mg oral tablet 1 tablet = 324 mg, By Mouth, Every other day, # 45 tablet, 0 Refills, Maintenance, 07/31/22 11:19:00 EDT, Tablet, [facility] #[id number], Partial fill upon patient request if the [...] Gm, 5 Refills, Maintenance, 07/19/19 15:19:00 EDT, [place], [facility] #[id number], 2 sprays Nares, Both Daily in AM,x30 [...] 09/24/22 17:20:00 EDT, Route to Pharmacy Electronically, [facility] #[id number], 162.56, cm, 09/17/22 12:56:00 EDT, Heigh... Start [...] 1 each, Maintenance, covering for [facility] Blood pressure monitor neededto monitor blood pressure [...] 2 Refills, Maintenance, 07/30/22 12:17:00 EDT, Syrup, [facility] #[id number], 30 mL By Mouth 4 times a day, 162.56, cm, 07/30/22 10:55:00 EDT,Height, 79.54, kg, 07/30/22 10:55:00 EDT, Dry Weight Start Date: 07/30/22 Status: Ordered losartan 100 mg oral tablet 1 tablet, By Mouth, Daily, # 30 tablet, 5 Refills, [facility] #[id number], 162, cm, 10/09/21 16:19:00 EDT, Height, 86.3, kg, 09/29/20 15:30:00 EDT, Dry Weight Start Date: 10/20/21 Status: Ordered meclizine 25 mg oral tablet 1 tablet = 25 mg, By Mouth, 2 times a day, # 30 tablet, 1 Refills, Maintenance, 07/10/21 17:25:00 EDT, Tablet, [facility] #[id number], 162, cm, 06/19/21 15:40:00 EDT, Height, 86.3, kg, 09/29/20 15:30:00 EDT, Dry Weight Start Date: 07/10/21 Status: Ordered multivitamin with iron Multiple Vitamins with Iron oral tablet 1 tablet, By Mouth, Daily, # 30 tablet, 11 Refills, Maintenance, 04/17/22 7:51:00 EST, Tablet, [facility] #[id number], 1 tablet By Mouth Daily, 162.56, cm, 04/16/22 16:00:00 EST, Height, 87.6, kg, 10/24/21 8:00:00 EDT, Dry Weight Start Date: 04/17/22 Status: Ordered Narcan 4 mg/0.1 mL nasal spray = 4 mg, Inhalation, Once, # 2 each, 1 Refills, Soft Stop, 10/29/20 12:23:00 EDT, [facility] #[id number], Partial fill upon patient request if the prescription is for a schedule II opioid drug., 162, cm, 09/29/20 15:30:00 EDT, Height, 86.3, kg, 08... Start Date: 10/29/20 Status: Ordered ondansetron 4 mg oral tablet 1 tablet = 4 mg, By Mouth, Daily, PRN Nausea & Vomiting, # 10 tablet, 3 Refills, Maintenance, 06/25/22 17:28:00 EDT, [facility] #[id number], 162.56, cm, 06/25/22 16:16:00 EDT, Height, 87.6, [...] 2 times a day, # 60 tablet, 11 Refills, Maintenance, 11/30/22 11:14:00EDT, Tablet, [facility] #[id number], 162.56, cm, 11/26/22 13:24:00 EDT, Height, 79.54, kg, 07/30/22 10:55:00 EDT, Dry Weight Start Date: 11/30/22 Status: Ordered Senna 8.6 mg oral tablet 1-3 tablet, By Mouth, Daily, for constipation, # 90 tablet, Refills 5, Tot. Refills 5, Maintenance,03/26/20 15:25:00 EST, Route to Pharmacy Electronically, [facility] #[id number] Tablet, 162.56, cm, 03/21/20 15:01:00 EST, Height, [...] 09/24/22 17:20:00 EDT, Route to Pharmacy Electronically, [facility] #[id number], 162.56, cm, 09/17/22 12:56:00 EDT, Heigh... Start Date: 09/24/22 Status: Ordered Suboxone 8 mg-2 mg Sublingual Film 2 film, Sublingual, Daily, dissolve under the tongue may fill less Due 12/09/2022, # 14 film, 0 Refills, Maintenance, 12/04/22 11:08:00 EDT, Film, [facility], 2 film Sublingual Daily,x7 days,Instr:dissolve under the tongue; june... Start Date: 12/04/22 Stop Date: 12/11/22 Status: Ordered SUMAtriptan 25 mg oral tablet 1 tablet = 25 mg, By Mouth, Daily, PRN as needed for migraine headache, may repeat dose after 2 hours up to a maximum of 2, # 6 tablet, 1 Refills, Maintenance, 03/02/20 19:47:00 EST, Tablet, [facility] #[id number], 162.56, cm, 01/04/20 9:40:00 ES... Start Date: 03/02/20 Status: Ordered zolpidem 5 mg oral tablet 0.5 tablet = 2.5 mg, By Mouth, Daily at bedtime, PRN as needed for sleep, # 14 tablet, 1 Refills, Maintenance, 11/19/22 9:43:00 EDT, [facility] #[id number], 162.56, cm, 10/20/22 7:18:00 EDT, Height, 79.54, kg, 07/30/22 10:55:00 EDT, Dry Weight Start Date: 11/19/22 Status: Ordered Problem List Condition Confirmation Course [...] use disorder Confirmed Active Pancytopenia Confirmed Active *[id number] Rn Birthing April Saavedra Confirmed Active Portal hypertensive gastropathy [...] tolerance, and QD need over. 2genotype 02/02: [id number] is only mutation detected 3death of sister, caring for mother w/ dementia 4repeat screening colonoscopy in 2020 Social History Social History Type Response Smoking Status Former smoker, quit more than 30 days ago entered on: 12/05/21 Sex Patient Care team information Care Team Personnel Name: Kahlil Sun MD Position: [facility] Physician - Primary Care Member Role: PCP Address: Address: [address] [place] [address] Name: Sharri Prince Position: [facility] PCO Associate Professional Member Role: Lifetime Consulting Provider Care Team Related Persons Name: SHANITA MENDOZA Address: home [address] [place] [address] Name: SHANITA MENDOZA [facility] Address: home [address] Name: ULICES PEARSON Name: ULICES ESPARZA Address: [place] [address] Name: LALA LI
--- OUTSIDE RECORDS SUMMARY | 2022-12-13 21:28 | XMS_ITS | Continuity of Care Document ---
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 Name Role Phone Kahlil Sun MD Primary Care Physician Encounter [facility] Date(s): 03/26/20 - 04/25/20 [facility] [address] [place] [address]- Allergies, Adverse Reactions, Alerts Substance Reaction Severity [...] tetanus-diphtheria toxoids (Td) 03/10/01 Given [facility] 2Result Comment[facility] pharmacy 3Location History: [facility] [...] tablet, 5 Refills, Maintenance, 01/26/20 16:20:00 EST, [facility], 162.56, cm, 10/09/19 10:36:00 EDT, Height, 72.3, kg, 09/26/18 16:01:00 EDT, Dry Weight Start Date: 01/26/20 Stop Date: 02/25/20 Status: Ordered albuterol 0.083% inhalation solution 3 mL = 2.5 mg, Inhalation, Every 6 hours, PRN Wheezing/Shortness of Breath, # 60 each, 0 Refills, Maintenance, 06/07/19 14:59:00 EDT, Solution, [facility] #[id number], 162.56, cm, 05/03/19 16:30:00 EST, Height, 72.3, kg, 09/26/18 16:01:00 EDT, Start Date: 06/07/19 Status: Ordered Biktarvy oral tablet 1 tablet, By Mouth, Daily, # 90 tablet, 3 Refills, Maintenance, 03/02/20 19:50:00 EST, [facility] #[id number], 1 tablet By Mouth Daily, 162.56, cm, 01/04/20 9:40:00 EST, Height, 72.3, kg, 09/26/18 16:01:00 EDT, Dry Weight Start Date: 03/02/20 Status: Ordered Blood Pressure Meter Blood Pressure Meter, See Instructions, # 1 each, Refills 0, Tot. Refills 0, Maintenance, Use for, 07/11/18 16:11:47 EDT, Compound Start Date: 07/11/18 Status: Ordered buprenorphine-naloxone 2 mg-0.5 mg sublingual film 1 film, Sublingual, Daily, [place] [id number], # 14 film, 0 Refills, Maintenance, 02/08/20 16:47:00 EST, [facility] #[id number], Partial fill on request., 1 film Sublingual Daily,Instr:Dino [id number], 162.56, cm, 01/04/20 9:40:00 EST, Height, 7... Start Date: 02/08/20 Status: Ordered buprenorphine-naloxone 2 mg-0.5 mg sublingual film 0.25 each, Sublingual, Daily, [facility]ino [id number], # 8 film, 0 Refills, Maintenance, 12/15/19 19:00:00 EDT, [facility] #[id number], Partial fill on request., 0.25 each Sublingual Daily,Instr:Dino [id number], 162.56, cm, 10/09/19 10:36:00 EDT, Hei... Start Date: 12/15/19 Status: Ordered cetirizine 10 mg oral tablet 1 tablet = 10 mg, By Mouth, Daily, For allergies., # 30 tablet, 2 Refills, Maintenance, 06/29/19 16:02:00 EDT, Tablet, [facility] #[id number], 162.56, cm, 05/03/19 16:30:00 EST, Height, 72.3, kg, 09/26/18 16:01:00 EDT, Dry Weight Start Date: 06/29/19 Status: Ordered cloNIDine 0.1 mg oral tablet 0.1 mg, 1, tablet, By Mouth, 3 times a day, as needed for anxiety, # 25 tablet, Refills 0, Tot. Refills 0, Maintenance, 10/10/19 21:36:00 EDT, Route to Pharmacy Electronically, [facility] #[id number], 162.56, cm, 10/09/19 10:36:00 EDT, Height, 72... [...] Gm, 5 Refills, Maintenance, 07/19/19 15:19:00 EDT, [place], [facility] #[id number], 2 sprays Nares, Both Daily in AM,x30 days, 162.56, cm, 05/03/19 16:30:00 EST, Height, 72.3, kg, 09/26/18 16:01:00 EDT, Dry... Start Date: 07/19/19 Stop Date: 01/15/20 Status: Ordered Flovent HFA 44 mcg/inh inhalation aerosol 1 puffs, Inhalation, 2 times a day, # 1 each, 5 Refills, Maintenance, 06/29/19 16:26:00 EDT, Aerosol, [facility] #[id number], 162.56, cm, 05/03/19 16:30:00 EST, Height, 72.3, [...] covering for [facility] Blood pressure monitor neededto monitor blood pressure [...] 3 Refills, Maintenance, 03/02/20 19:48:00 EST, Tablet, [facility] #[id number], 30 day supply preferred for present, 162.56, [...] 05/12/18 14:45:33 EDT, Route to Pharmacy Electronically, [id number], [facility] Start Date: 05/12/18 Status: Ordered LORazepam 0.5 mg oral tablet 0.5 tablet = 0.25 mg, By Mouth, 2 times a day, PRN as needed for anxiety, # 20 tablet, 1 Refills, Maintenance, 05/16/19 23:11:00 EDT, Tablet, [facility] #[id number], 162.56, cm, 05/03/19 16:30:00 EST, Height, 72.3, kg, 09/26/18 16:01:00 EDT, Dry... Start Date: 05/16/19 Status: Ordered losartan 100 mg oral tablet 1 tablet = 100 mg, By Mouth, Daily, # 30 tablet, 11 Refills, Maintenance, 06/29/19 15:59:00 EDT, Tablet, [facility] #[id number], 162.56, cm, 05/03/19 16:30:00 EST, Height, 72.3, kg, 09/26/18 16:01:00 EDT, Dry Weight Start Date: 06/29/19 Status: Ordered meclizine 25 mg oral tablet 1 tablet = 25 mg, By Mouth, 2 times a day, # 30 tablet, 1 Refills, Maintenance, 03/30/19 15:49:00 EST, Tablet, [facility] #[id number], 162.56, cm, 03/08/19 14:34:00 EST, Height, 72.3, [...] 15:00:00 EDT, Aerosol, Route to Pharmacy Electronically, [id number], [facility] #[id number], 1... Start Date: 06/07/19 Status: Ordered Senna 8.6 mg oral tablet 1-3 tablet, By Mouth, Daily, for constipation, # 90 tablet, Refills 5, Tot. Refills 5, Maintenance,03/26/20 15:25:00 EST, Route to Pharmacy Electronically, [facility] #[id number] Tablet, 162.56, cm, 03/21/20 15:01:00 EST, Height, 77, kg, ... Start Date: 03/26/20 Status: Ordered Spacer for inhalers Spacer for inhalers, See Instructions, # 1 each, Refills 0, Tot. Refills 0, Maintenance, Use with inhalers as directed. [place]., 06/07/19 15:07:00 EDT, Compound, 162.56, cm, 05/03/19 16:30:00 EST, Height, 72.3, kg, 09/26/18 16:01:00 EDT, Dry Weight Start Date: 06/07/19 Status: Ordered SUMAtriptan 25 mg oral tablet 1 tablet = 25 mg, By Mouth, Daily, PRN as needed for migraine headache, may repeat dose after 2 hours up to a maximum of 2, # 6 tablet, 1 Refills, Maintenance, 03/02/20 19:47:00 EST, Tablet, [facility] #[id number], 162.56, cm, 01/04/20 9:40:00 ES... Start Date: 03/02/20 Status: Ordered Zofran 4 mg oral tablet 1 tablet = 4 mg, By Mouth, 2 times a day, PRN Nausea & Vomiting, # 10 tablet, 0 Refills, Maintenance, 03/02/20 19:47:00 EST, Tablet, [facility] #[id number], 162.56, cm, 01/04/20 9:40:00 EST,Height, 72.3, kg, 09/26/18 16:01:00 EDT, Dry Weight Start Date: 03/02/20 Status: Ordered zolpidem 5 [...] 2016 Active Migraine(Confirmed) Active Opioid dependence(Confirmed) Active *[phone] Care Partn renee Chen Saavedra(Confirmed) Active Health care maintenance(Confirmed) Active Routine [...] tolerance, and QD need over. 2genotype 02/02: [id number] is only mutation detected 3death of sister, caring for mother w/ dementia 4repeat screening colonoscopy in 2020 Social History Social History Type Response Smoking Status Former smoker, quit more than 30 days ago entered on: 05/24/18 Sex
--- OUTSIDE RECORDS SUMMARY | 2022-12-13 21:28 | XMS_ITS | Continuity of Care Document ---
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 2Result Comment: #2, [facility] 3Result Comment: [facility] 4Result Comment: pharmacy 5Location History: [place] 6Admin Note: vis 08/31/11 7Admin Note: ADMIN.BY RN 8Result Comment: [facility] 9Admin Note: Admin. by RN 10Admin Note: Admin. by RN 11Admin Note: Admin. 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 Start Date: 12/05/21 Status: Ordered acyclovir 400 mg oral tablet 1 tablet = 400 mg, By Mouth, 2 times a day, # 10 tablet, 5 Refills, Maintenance, 01/08/21 18:41:00 EST, [facility] #[id number], 162, cm, 12/17/20 23:19:00 EDT, Height, 86.3, kg, 09/29/20 15:30:00 EDT, Dry Weight Start Date: 01/08/21 Stop Date: 02/07/21 Status: Ordered Albuterol (Eqv-ProAir HFA) 90 mcg/inh inhalation aerosol 2 puffs, Inhalation, Every 4 hours, PRN NEEDED FOR WHEEZING/SHORTNESS OF BREATH, USE WITH SPACERCHAMBER, # 8.5 Gm, 5 Refills, [facility] #[id number], 16, INHALE 2 PUFFS INTO LUNGS EVERY 4 HOURS NEEDED FOR WHEEZING/SHORTNESS OF BREATH. USE... Start Date: 11/13/20 Status: Ordered albuterol 0.083% inhalation solution 3 mL = 2.5 mg, Inhalation, Every 6 hours, PRN Wheezing/Shortness of Breath, # 60 each, 0 Refills, Maintenance, 06/07/20 12:51:00 EDT, Solution, [facility] #[id number], 162.56, cm, 05/23/20 14:31:00 EDT, Height, 77, [...] 01/04/22 19:11:00 EST, Route to Pharmacy Electronically, [facility] #[id number], 162.56, cm, 11/0... Start Date: 01/04/22 Status: Ordered Biktarvy oral tablet 1 tablet, By Mouth, Daily, # 90 tablet, 3 Refills, Maintenance, 06/13/21 22:19:00 EDT, [facility] #18062, 1 tablet By Mouth Daily, 162, cm, [...] 1 Refills, Maintenance, 07/10/21 18:35:00 EDT, Tablet, [facility] #67214, Partial fill upon patient request if the prescription is for a schedule II opioid drug., 162, cm, 06/19/21 15:40:00 EDT... Start Date: 07/10/21 Status: Ordered cloNIDine 0.1 mg oral tablet 1, tablet, By Mouth, 3 times a day, PRN, # 270 tablet, Refills 0, Maintenance, NEEDED FOR ANXIETY, 01/01/22 10:42:00 EDT, Route to Pharmacy Electronically, [facility] #[id number], 162.56, cm,12/05/21 14:12:00 EDT, Height, 87.6, kg, 10/24/21 8... Start Date: 01/01/22 Status: Ordered Colace Clear 50 mg oral capsule 1 capsule = 50 mg, By Mouth, 2 times a day, PRN as needed for constipation, # 60 capsule, 0 Refills, Maintenance, 12/05/21 15:09:00 EDT, [facility] #30098, Partial fill upon patient requestif the prescription is for a schedule II opioid nhi... Start Date: 12/05/21 Status: Ordered diclofenac 1% topical gel = 2 Gm, Topically, 4 times a day, PRN for pain, not to exceed: 10 gm/day, # 100 Gm, 1 Refills, Maintenance, 05/29/21 16:52:00 EDT, Gel, [facility], Partial fill upon patient request if the prescription is for a schedule II opioid... Start Date: 05/29/21 Status: Ordered Dulera 200 mcg-5 mcg/inh inhalation aerosol 2 puffs, Inhalation, 2 times a day, # 1 each, 3 Refills, Maintenance, 01/28/21 16:44:00 EST, Aerosol, [facility], STOP FLOVENT, 2 puffs Inhalation 2 times a day,x30 days, 162, cm,01/28/21 16:02:00 EST, Height, 86.3, kg, 09/29/20 1... Start Date: 01/28/21 Stop Date: 05/28/21 Status: Ordered escitalopram 10 mg oral tablet 1 tablet = 10 mg, By Mouth, Daily, # 30 tablet, 11 Refills, Maintenance, 07/31/21 17:50:00 EDT, Tablet, [facility] #[id number], Partial fill upon patient request if the [...] Gm, 5 Refills, Maintenance, 07/19/19 15:19:00 EDT, [place], [facility] #[id number], 2 sprays Nares, Both Daily in AM,x30 [...] Replace Required Details, Route to Pharmacy Electronically, [facility] #[id number], 162.56, cm,... Start Date: 11/27/21 Status: Ordered [...] 1 each, Maintenance, covering for [facility] Blood pressure monitor neededto monitor blood pressure DX: hypertension, 07/11/18 17:28:42 EDT, Compound Start Date: 07/11/18 Status: Ordered humidifier humidifier, See Instructions, # 1 each, Refills 0, Tot. Refills 0, Maintenance, use as directed forchronic sinusitis J32, 04/09/17 14:21:37 EST, Compound Start Date: 04/09/17 Status: Ordered losartan 100 mg oral tablet 1 tablet, By Mouth, Daily, # 30 tablet, 5 Refills, [facility] #[id number], 162, cm, 10/09/21 16:19:00 EDT, Height, 86.3, kg, 09/29/20 15:30:00 EDT, Dry Weight Start Date: 10/20/21 Status: Ordered meclizine 25 mg oral tablet 1 tablet = 25 mg, By Mouth, 2 times a day, # 30 tablet, 1 Refills, Maintenance, 07/10/21 17:25:00 EDT, Tablet, [facility] #47236, 162, cm, 06/19/21 15:40:00 EDT, Height, 86.3, kg, 09/29/20 15:30:00 EDT, Dry Weight Start Date: 07/10/21 Status: Ordered multivitamin with iron Multiple Vitamins with Iron oral tablet 1 tablet, By Mouth, Daily, # 30 tablet, 11 Refills, Maintenance, 09/06/21 19:08:00 EDT, Tablet, [facility] #[id number], 1 tablet By Mouth Daily, 162, cm, 07/31/21 16:00:00 EDT, Height, 86.3, kg,09/29/20 15:30:00 EDT, Dry Weight Start Date: 09/06/21 Status: Ordered Narcan 4 mg/0.1 mL nasal spray = 4 mg, Inhalation, Once, # 2 each, 1 Refills, Soft Stop, 10/29/20 12:23:00 EDT, [facility] #[id number], Partial fill upon patient request if the prescription is for a schedule II opioid drug., 162, cm, 09/29/20 15:30:00 EDT, Height, 86.3, kg, 08... Start Date: 10/29/20 Status: Ordered ondansetron 4 mg oral tablet 1 tablet = 4 mg, By Mouth, Daily, PRN Nausea & Vomiting, # 10 tablet, 3 Refills, Maintenance, 10/08/21 22:17:00 EDT, [facility] #69346, 162, cm, 10/09/21 16:19:00 EDT, Height, 86.3, [...] each, 0 Refills, Maintenance, 06/04/20 16:46:00 EDT, [facility] #85155, OK to sub for any gallon prep, used as directed, 162.56, cm, 05/23/20 14:31:00 EDT, Height, 77, kg, 03/21/20 15:04:00 EST, Dry We... Start Date: 06/04/20 Status: Ordered Senna 8.6 mg oral tablet 1-3 tablet, By Mouth, Daily, for constipation, # 90 tablet, Refills 5, Tot. Refills 5, Maintenance,03/26/20 15:25:00 EST, Route to Pharmacy Electronically, [facility] #46261 Tablet, 162.56, cm, 03/21/20 15:01:00 EST, Height, [...] tablet, 2 Refills, Maintenance, 12/23/21 16:29:00 EDT, [facility] #[id number], 162.56, cm, 12/05/21 14:12:00 EDT, Height, 87.6, kg, 10/24/21 8:00:00 EDT, Dry Weight Start Date: 12/23/21 Status: Ordered Suboxone 8 mg-2 mg Sublingual Film 2.5 film, Sublingual, Daily, dissolve under the tongue may fill less due 01/02/2022 Dino [id number], # 70 film, 0 Refills, Maintenance, 12/31/21 7:56:00 EDT, Film, [facility] #55627, 2.5 film Sublingual Daily,x28 days,Instr:dissolve unde... Start Date: 12/31/21 Stop Date: 01/28/22 Status: Ordered Suboxone 8 mg-2 mg Sublingual Film 2.5 film, Sublingual, Daily, dissolve under the tongue increase in dose Iveth [id number] coveringfor Dino baires on/after 08/22/2021, # 35 film, 0 Refills, Maintenance, 08/22/21 9:27:00 EDT, Film,[facility], 2.5 film Subli... Start Date: 08/22/21 Stop Date: 09/05/21 Status: Ordered SUMAtriptan 25 mg oral tablet 1 tablet = 25 mg, By Mouth, Daily, PRN as needed for migraine headache, may repeat dose after 2 hours up to a maximum of 2, # 6 tablet, 1 Refills, Maintenance, 03/02/20 19:47:00 EST, Tablet, [facility] #[id number], 162.56, cm, 01/04/20 9:40:00 ES... Start Date: 03/02/20 Status: Ordered zolpidem 5 mg oral tablet 1 tablet = 5 mg, By Mouth, Daily at bedtime, PRN as needed for sleep, covering for Dr. 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 is only mutation detected 3death of sister, caring for mother w/ dementia 4repeat screening colonoscopy in 2020 Social History Social History Type Response Smoking Status Former smoker, quit more than 30 days ago entered on: 12/05/21 Sex Patient Care team information Care Team Personnel Name: Kahlil Sun MD Position: [facility] Primary Care Physician Member Role: PCP Address: Address: [address] [place] [address] Name: Sharri Prince Position: [facility] PCO Associate Professional Member Role: Lifetime Consulting Provider Care Team Related Persons Name: SHANITA MENDOZA Address: home [address] [place] [address] Name: SHANITA MENDOZA Address: home [id number] Name: ULICES PEARSON Name: ULICES ESPARZA Address: [place] [address] Name: LALA LI
--- OUTSIDE RECORDS SUMMARY | 2022-12-13 21:28 | XMS_ITS | Continuity of Care Document ---
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 2Result Comment: [facility] 3Result Comment: [facility] 4Result Comment: pharmacy 5Location History: [facility] 6Admin [...] tablet, 5 Refills, Maintenance, 01/26/20 16:20:00 EST, [facility], 162.56, cm, 10/09/19 10:36:00 EDT, Height, 72.3, kg, 09/26/18 16:01:00 EDT, Dry Weight Start Date: 01/26/20 Stop Date: 02/25/20 Status: Ordered albuterol 0.083% inhalation solution 3 mL = 2.5 mg, Inhalation, Every 6 hours, PRN Wheezing/Shortness of Breath, # 60 each, 0 Refills, Maintenance, 06/07/19 14:59:00 EDT, Solution, [facility] #[id number], 162.56, cm, 05/03/19 16:30:00 EST, Height, 72.3, kg, 09/26/18 16:01:00 EDT, . Start Date: 06/07/19 Status: Ordered Biktarvy oral tablet 1 tablet, By Mouth, Daily, # 90 tablet, 3 Refills, Maintenance, 03/02/20 19:50:00 EST, [facility] #[id number], 1 tablet By Mouth Daily, 162.56, cm, 01/04/20 9:40:00 EST, Height, 72.3, kg, 09/26/18 16:01:00 EDT, Dry Weight Start Date: 03/02/20 Status: Ordered Blood Pressure Meter Blood Pressure Meter, See Instructions, # 1 each, Refills 0, Tot. Refills 0, Maintenance, Use for, 07/11/18 16:11:47 EDT, Compound Start Date: 07/11/18 Status: Ordered buprenorphine-naloxone 2 mg-0.5 mg sublingual film 1 film, Sublingual, Daily, [place] [id number] covering for [place] [id number], # 14 film, 0 Refills, Maintenance, 04/26/20 9:47:00 EST, [facility] #[id number], Partial fill on request., 1 film Sublingual Daily,Instr:Marjjuan [id number] covering for... Start Date: 04/26/20 Status: Ordered buprenorphine-naloxone 2 mg-0.5 mg sublingual film 0.25 each, Sublingual, Daily, Dino [id number], # 8 film, 0 Refills, Maintenance, 12/15/19 19:00:00 EDT, [facility] #[id number], Partial fill on request., 0.25 each Sublingual Daily,Instr:Dino [id number], 162.56, cm, 10/09/19 10:36:00 EDT, Hei... Start Date: 12/15/19 Status: Ordered cetirizine 10 mg oral tablet 1 tablet = 10 mg, By Mouth, Daily, For allergies., # 30 tablet, 2 Refills, Maintenance, 06/29/19 16:02:00 EDT, Tablet, [facility] #47150, 162.56, cm, 05/03/19 16:30:00 EST, Height, 72.3, kg, 09/26/18 16:01:00 EDT, Dry Weight Start Date: 06/29/19 Status: Ordered cloNIDine 0.1 mg oral tablet 0.1 mg, 1, tablet, By Mouth, 3 times a day, as needed for anxiety, # 25 tablet, Refills 0, Tot. Refills 0, Maintenance, 10/10/19 21:36:00 EDT, Route to Pharmacy Electronically, [facility] #[id number], 162.56, cm, 10/09/19 10:36:00 EDT, Height, 72... [...] Gm, 5 Refills, Maintenance, 07/19/19 15:19:00 EDT, [place], [facility] #[id number], 2 sprays Nares, Both Daily in AM,x30 days, 162.56, cm, 05/03/19 16:30:00 EST, Height, 72.3, kg, 09/26/18 16:01:00 EDT, Dry... Start Date: 07/19/19 Stop Date: 01/15/20 Status: Ordered Flovent HFA 44 mcg/inh inhalation aerosol 1 puffs, Inhalation, 2 times a day, # 1 each, 5 Refills, Maintenance, 06/29/19 16:26:00 EDT, Aerosol, [facility] #[id number], 162.56, cm, 05/03/19 16:30:00 EST, Height, 72.3, [...] Instructions, # 1 each, Maintenance, covering for [facility] Blood pressure monitor neededto monitor blood pressure [...] 3 Refills, Maintenance, 03/02/20 19:48:00 EST, Tablet, [facility] #[id number], 30 day supply preferred for present, 162.56, [...] 05/12/18 14:45:33 EDT, Route to Pharmacy Electronically, [id number], [facility] Start Date: 05/12/18 Status: Ordered LORazepam 0.5 mg oral tablet 0.5 tablet = 0.25 mg, By Mouth, 2 times a day, PRN as needed for anxiety, # 20 tablet, 1 Refills, Maintenance, 05/16/19 23:11:00 EDT, Tablet, [facility] #65070, 162.56, cm, 05/03/19 16:30:00 EST, Height, 72.3, kg, 09/26/18 16:01:00 EDT, Dry... Start Date: 05/16/19 Status: Ordered losartan 100 mg oral tablet 1 tablet = 100 mg, By Mouth, Daily, # 30 tablet, 11 Refills, Maintenance, 06/29/19 15:59:00 EDT, Tablet, [facility] #[id number], 162.56, cm, 05/03/19 16:30:00 EST, Height, 72.3, kg, 09/26/18 16:01:00 EDT, Dry Weight Start Date: 06/29/19 Status: Ordered meclizine 25 mg oral tablet 1 tablet = 25 mg, By Mouth, 2 times a day, # 30 tablet, 1 Refills, Maintenance, 03/30/19 15:49:00 EST, Tablet, [facility] #[id number], 162.56, cm, 03/08/19 14:34:00 EST, Height, 72.3, [...] each, 0 Refills, Maintenance, 06/04/20 16:46:00 EDT, [facility] #36066, OK to sub for any gallon prep, [...] 15:00:00 EDT, Aerosol, Route to Pharmacy Electronically, [id number], [facility] #[id number], 1... Start Date: 06/07/19 Status: Ordered Senna 8.6 mg oral tablet 1-3 tablet, By Mouth, Daily, for constipation, # 90 tablet, Refills 5, Tot. Refills 5, Maintenance,03/26/20 15:25:00 EST, Route to Pharmacy Electronically, [facility] #[id number] Tablet, 162.56, cm, 03/21/20 15:01:00 EST, Height, 77, kg, 2... Start Date: 03/26/20 Status: Ordered Spacer for inhalers Spacer for inhalers, See Instructions, # 1 each, Refills 0, Tot. Refills 0, Maintenance, Use with inhalers as directed. Latvian., 06/07/19 15:07:00 EDT, Compound, 162.56, cm, 05/03/19 16:30:00 EST, Height, 72.3, kg, 09/26/18 16:01:00 EDT, Dry Weight Start Date: 06/07/19 Status: Ordered SUMAtriptan 25 mg oral tablet 1 tablet = 25 mg, By Mouth, Daily, PRN as needed for migraine headache, may repeat dose after 2 hours up to a maximum of 2, # 6 tablet, 1 Refills, Maintenance, 03/02/20 19:47:00 EST, Tablet, [facility] #[id number], 162.56, cm, 01/04/20 9:40:00 ES... Start Date: 03/02/20 Status: Ordered Zofran 4 mg oral tablet 1 tablet = 4 mg, By Mouth, 2 times a day, PRN Nausea & Vomiting, # 10 tablet, 0 Refills, Maintenance, 05/04/20 17:09:00 EST, Tablet, [facility] #[id number], 162.56, cm, 05/03/20 9:23:00 EST,Height, 77, kg, [...] 2016 Active Migraine(Confirmed) Active Opioid dependence(Confirmed) Active *[id number] Care Partn er April Saavedra(Confirmed) Active Health [...] tolerance, and QD need over. 2genotype 02/02: [id number] is only mutation detected 3death of sister, caring for mother w/ dementia 4repeat screening colonoscopy in 2020 Social History Social History Type Response Smoking Status Former smoker, quit more than 30 days ago entered on: 05/24/18 Sex
--- OUTSIDE RECORDS SUMMARY | 2022-12-13 21:29 | XMS_ITS | Continuity of Care Document ---
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 Name Role Phone Kahlil Sun MD Primary Care Physician Encounter [facility] [place] Date(s): 07/12/19 - 07/19/19 [facility] [address] [place] [address]- [facility] Attending Physician: Kahlil Sun MD Allergies, Adverse Reactions, [...] (oldterm) 12/03/16 Given pneumococcal 13-valent vaccine 8 1/24/13 Given Adacel (Tdap) (oldterm) 05/16/09 Given Hepatitis [...] 12Admin Note: LITO sanofi-pasteur 13Admin Note: 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 Start Date: 06/07/19 Status: Ordered Bactrim 400 mg-80 mg oral tablet 1 tablet, By Mouth, 2 times a day, # 14 tablet, 0 Refills, Acute 12/09/19 15:46:00 EDT, 06/13/19 15:46:00 EDT, Tablet, [facility] #[id number], 1 tablet By Mouth 2 times a day, 162.56, cm, 05/03/19 16:30:00 EST, Height, 72.3, kg, 09/26/18 16:01:00... Start Date: 06/13/19 Stop Date: 12/09/19 Status: Ordered Biktarvy oral tablet 1 tablet, By Mouth, Daily, # 30 tablet, 11 Refills, Maintenance, 06/29/19 16:26:00 EDT, [facility] #51725, 1 tablet By Mouth Daily, 162.56, cm, 05/03/19 16:30:00 EST, Height, 72.3, kg, 09/26/18 16:01:00 EDT, Dry Weight Start Date: 06/29/19 Status: Ordered Blood Pressure Meter Blood Pressure Meter, See Instructions, # 1 each, Refills 0, Tot. Refills 0, Maintenance, Use for, 07/11/18 16:11:47 EDT, Compound Start Date: 07/11/18 Status: Ordered buprenorphine-naloxone 2 mg-0.5 mg sublingual film 0.25 each, Sublingual, Daily, Dino [id number], # 4 film, 0 Refills, Maintenance, 07/04/19 17:54:00 EDT, [facility] #[id number], Partial fill on request., 0.25 each Sublingual Daily,Instr:Dino [id number], 162.56, cm, 05/03/19 16:30:00 EST, Hei... Start Date: 07/04/19 Status: Ordered cetirizine 10 mg oral tablet 1 tablet = 10 mg, By Mouth, Daily, For allergies., # 30 tablet, 2 Refills, Maintenance, 06/29/19 16:02:00 EDT, Tablet, [facility] #48657, 162.56, cm, 05/03/19 16:30:00 EST, Height, 72.3, kg, 09/26/18 16:01:00 EDT, Dry Weight Start Date: 06/29/19 Status: Ordered diphenhydrAMINE 25 mg oral capsule TK 1 C PO HS PRN Start Date: 06/29/19 Status: Ordered escitalopram 10 mg oral tablet 1 tablet = 10 mg, By Mouth, Daily, TK 1 T PO QD Start Date: 06/29/19 Status: Ordered Flonase 50 mcg/inh nasal spray 2 sprays, Nares, Both, Daily in AM, # 16 Gm, 5 Refills, Maintenance, 07/19/19 15:19:00 EDT, [place], [facility] #74076, 2 sprays Nares, Both Daily in AM,x30 days, 162.56, cm, 05/03/19 16:30:00 EST, Height, 72.3, kg, 09/26/18 16:01:00 EDT, Dry... Start Date: 07/19/19 Stop Date: 01/15/20 Status: Ordered Flovent HFA 44 mcg/inh inhalation aerosol 1 puffs, Inhalation, 2 times a day, # 1 each, 5 Refills, Maintenance, 06/29/19 16:26:00 EDT, Aerosol, [facility] #58066, 162.56, cm, 05/03/19 16:30:00 EST, Height, 72.3, kg, 09/26/18 16:01:00 EDT, Dry Weight Start Date: 06/29/19 Status: Ordered Home Blood Pressure Monitor See [...] 2 Refills, Maintenance, 05/29/19 21:12:00 EDT, Tablet, [facility] #07941, 30 day supply preferred for present, 162.56, cm, 05/03/19 16:30:00 EST, Height, 72.3, kg, 09/26/18 16:01:00 EDT, Dry... Start Date: 05/29/19 Status: Ordered Liletta 52 mg intrauterine device See Instructions, 1 each Once, # 1 each, 0 Refills, Soft Stop, 07/11/18 16:17:37 EDT Start Date: 07/11/18 Status: Ordered loratadine 10 mg oral tablet 10 mg, 1, tablet, By Mouth, Daily, PRN, # 30 tablet, Refills 3, Tot. Refills 3, Maintenance, allergy/itch, 05/12/18 14:45:33 EDT, Route to Pharmacy Electronically, [id number], [facility] Start Date: 05/12/18 Status: Ordered LORazepam 0.5 mg oral tablet 0.5 tablet = 0.25 mg, By Mouth, 2 times a day, PRN as needed for anxiety, # 20 tablet, 1 Refills, Maintenance, 05/16/19 23:11:00 EDT, Tablet, [facility] #[id number], 162.56, cm, 05/03/19 16:30:00 EST, Height, 72.3, kg, 09/26/18 16:01:00 EDT, Dry... Start Date: 05/16/19 Status: Ordered losartan 100 mg oral tablet 1 tablet = 100 mg, By Mouth, Daily, # 30 tablet, 11 Refills, Maintenance, 06/29/19 15:59:00 EDT, Tablet, [facility] #83477, 162.56, cm, 05/03/19 16:30:00 EST, Height, 72.3, kg, 09/26/18 16:01:00 EDT, Dry Weight Start Date: 06/29/19 Status: Ordered meclizine 25 mg oral tablet 1 tablet = 25 mg, By Mouth, 2 times a day, # 30 tablet, 1 Refills, Maintenance, 03/30/19 15:49:00 EST, Tablet, [facility] #[id number], 162.56, cm, 03/08/19 14:34:00 EST, Height, 72.3, [...] 15:00:00 EDT, Aerosol, Route to Pharmacy Electronically, [id number], [facility] #[id number], 1... Start Date: 06/07/19 Status: Ordered Senna 8.6 mg oral tablet 1-3 tablet, By Mouth, Daily, for constipation, # 90 tablet, Refills 5, Tot. Refills 5, Maintenance,02/17/18 15:12:45 EST, Route to Pharmacy Electronically, [id number], [facility] Tablet Start Date: 02/17/18 Status: Ordered Spacer for inhalers Spacer for inhalers, See Instructions, # 1 each, Refills 0, Tot. Refills 0, Maintenance, Use with inhalers as directed. [place]., 06/07/19 15:07:00 EDT, Compound, 162.56, cm, 05/03/19 16:30:00 EST, Height, 72.3, kg, 09/26/18 16:01:00 EDT, Dry Weight Start Date: 06/07/19 Status: Ordered SUMAtriptan 25 mg oral tablet 1 tablet = 25 mg, By Mouth, Daily, PRN as needed for migraine headache, may repeat dose after 2 hours up to a maximum of 2, # 6 tablet, 1 Refills, Maintenance, 04/18/19 13:31:00 EST, Tablet, [facility] #40010, 162.56, cm, 03/08/19 14:34:00 E... Start Date: 04/18/19 Status: Ordered Zofran 4 mg oral tablet 1 tablet = 4 mg, By Mouth, 2 times a day, PRN Nausea & Vomiting, # 20 tablet, 0 Refills, Maintenance, 05/24/19 22:41:00 EDT, Tablet, [facility] #08514, 162.56, cm, 05/03/19 16:30:00 EST, Height, 72.3, kg, 09/26/18 16:01:00 EDT, Dry Weight Start Date: 05/24/19 Status: Ordered zolpidem 5 mg oral tablet 0 Refills, Maintenance, 01/22/18 21:33:47 EST Start Date: 01/22/18 Status: Ordered Problem List Condition Effective Dates Status Health Status Inform ant Abdominal bloating(Confirmed) Active Acne(Confirmed) Active *[phone]- Care Part ner April Lopezrell(Confirmed) Active AIDS (acquired immunodeficie ncy syndrome). ART [...] 2016 Active Migraine(Confirmed) Active Opioid dependence(Confirmed) Active Health care maintenance(Confirmed) Active Routine screening [...] tolerance, and QD need over. 2genotype 02/02: LU255C is only mutation detected 3death of sister, caring for mother w/ dementia 4repeat screening colonoscopy in 2020 Social History Social History Type Response Smoking Status Former smoker, quit more than 30 days ago entered on: 05/24/18 Sex
--- OUTSIDE RECORDS SUMMARY | 2022-12-13 21:29 | XMS_ITS | Continuity of Care Document ---
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 2Result Comment: #2, [facility] 3Result Comment: [facility] 4Result Comment: pharmacy 5Location History: [facility] 6Admin Note: vis 08/31/11 7Admin Note: ADMIN.BY RN 8Result Comment: [facility] 9Admin Note: Admin. by RN 10Admin Note: Admin. by RN 11Admin Note: Admin. 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 Start Date: 12/05/21 Status: Ordered acyclovir 400 mg oral tablet 1 tablet = 400 mg, By Mouth, 2 times a day, # 10 tablet, 5 Refills, Maintenance, 01/08/21 18:41:00 EST, [facility] #[id number], 162, cm, 12/17/20 23:19:00 EDT, Height, 86.3, kg, 09/29/20 15:30:00 EDT, Dry Weight Start Date: 01/08/21 Stop Date: 02/07/21 Status: Ordered Albuterol (Eqv-ProAir HFA) 90 mcg/inh inhalation aerosol 2 puffs, Inhalation, Every 4 hours, PRN NEEDED FOR WHEEZING/SHORTNESS OF BREATH, USE WITH SPACERCHAMBER, # 8.5 Gm, 5 Refills, [facility] #[id number], 16, INHALE 2 PUFFS INTO LUNGS EVERY 4 HOURS NEEDED FOR WHEEZING/SHORTNESS OF BREATH. USE... Start Date: 11/13/20 Status: Ordered albuterol 0.083% inhalation solution 3 mL = 2.5 mg, Inhalation, Every 6 hours, PRN Wheezing/Shortness of Breath, # 60 each, 0 Refills, Maintenance, 06/07/20 12:51:00 EDT, Solution, [facility] #[id number], 162.56, cm, 05/23/20 14:31:00 EDT, Height, 77, [...] 01/04/22 19:11:00 EST, Route to Pharmacy Electronically, [facility] #[id number], 162.56, cm, 11/0... Start Date: 01/04/22 Status: Ordered Biktarvy oral tablet 1 tablet, By Mouth, Daily, # 90 tablet, 3 Refills, Maintenance, 06/13/21 22:19:00 EDT, [facility] #[id number], 1 tablet By Mouth Daily, 162, cm, [...] 1 Refills, Maintenance, 07/10/21 18:35:00 EDT, Tablet, [facility] #[id number], Partial fill upon patient request if the prescription is for a schedule II opioid drug., 162, cm, 06/19/21 15:40:00 EDT... Start Date: 07/10/21 Status: Ordered cloNIDine 0.1 mg oral tablet 1, tablet, By Mouth, 3 times a day, PRN, # 270 tablet, Refills 0, Maintenance, NEEDED FOR ANXIETY, 01/01/22 10:42:00 EDT, Route to Pharmacy Electronically, [facility] #[id number], 162.56, cm,12/05/21 14:12:00 EDT, Height, 87.6, kg, 10/24/21 8... Start Date: 01/01/22 Status: Ordered Colace Clear 50 mg oral capsule 1 capsule = 50 mg, By Mouth, 2 times a day, PRN as needed for constipation, # 60 capsule, 0 Refills, Maintenance, 12/05/21 15:09:00 EDT, [facility] #[id number], Partial fill upon patient requestif the prescription is for a schedule II opioid nhi... Start Date: 12/05/21 Status: Ordered diclofenac 1% topical gel = 2 Gm, Topically, 4 times a day, PRN for pain, not to exceed: 10 gm/day, # 100 Gm, 1 Refills, Maintenance, 05/29/21 16:52:00 EDT, Gel, [facility], Partial fill upon patient request if the prescription is for a schedule II opioid... Start Date: 05/29/21 Status: Ordered Dulera 200 mcg-5 mcg/inh inhalation aerosol 2 puffs, Inhalation, 2 times a day, # 1 each, 3 Refills, Maintenance, 01/28/21 16:44:00 EST, Aerosol, [facility], STOP FLOVENT, 2 puffs Inhalation 2 times a day,x30 days, 162, cm,01/28/21 16:02:00 EST, Height, 86.3, kg, 09/29/20 1... Start Date: 01/28/21 Stop Date: 05/28/21 Status: Ordered escitalopram 10 mg oral tablet 1 tablet = 10 mg, By Mouth, Daily, # 30 tablet, 11 Refills, Maintenance, 07/31/21 17:50:00 EDT, Tablet, [facility] #[id number], Partial fill upon patient request if the [...] Gm, 5 Refills, Maintenance, 07/19/19 15:19:00 EDT, [place], [facility] #[id number], 2 sprays Nares, Both Daily in AM,x30 [...] Replace Required Details, Route to Pharmacy Electronically, [facility] #[id number], 162.56, cm,... Start Date: 11/27/21 Status: Ordered [...] # 1 each, Maintenance, covering for [facility] Blood pressure monitor neededto monitor blood pressure DX: hypertension, 07/11/18 17:28:42 EDT, Compound Start Date: 07/11/18 Status: Ordered humidifier humidifier, See Instructions, # 1 each, Refills 0, Tot. Refills 0, Maintenance, use as directed forchronic sinusitis J32, 04/09/17 14:21:37 EST, Compound Start Date: 04/09/17 Status: Ordered losartan 100 mg oral tablet 1 tablet, By Mouth, Daily, # 30 tablet, 5 Refills, [facility] #[id number], 162, cm, 10/09/21 16:19:00 EDT, Height, 86.3, kg, 09/29/20 15:30:00 EDT, Dry Weight Start Date: 10/20/21 Status: Ordered meclizine 25 mg oral tablet 1 tablet = 25 mg, By Mouth, 2 times a day, # 30 tablet, 1 Refills, Maintenance, 07/10/21 17:25:00 EDT, Tablet, [facility] #[id number], 162, cm, 06/19/21 15:40:00 EDT, Height, 86.3, kg, 09/29/20 15:30:00 EDT, Dry Weight Start Date: 07/10/21 Status: Ordered multivitamin with iron Multiple Vitamins with Iron oral tablet 1 tablet, By Mouth, Daily, # 30 tablet, 11 Refills, Maintenance, 09/06/21 19:08:00 EDT, Tablet, [facility] #[id number], 1 tablet By Mouth Daily, 162, cm, 07/31/21 16:00:00 EDT, Height, 86.3, kg,09/29/20 15:30:00 EDT, Dry Weight Start Date: 09/06/21 Status: Ordered Narcan 4 mg/0.1 mL nasal spray = 4 mg, Inhalation, Once, # 2 each, 1 Refills, Soft Stop, 10/29/20 12:23:00 EDT, [facility] #[id number], Partial fill upon patient request if the prescription is for a schedule II opioid drug., 162, cm, 09/29/20 15:30:00 EDT, Height, 86.3, kg, 08... Start Date: 10/29/20 Status: Ordered ondansetron 4 mg oral tablet 1 tablet = 4 mg, By Mouth, Daily, PRN Nausea & Vomiting, # 10 tablet, 3 Refills, Maintenance, 10/08/21 22:17:00 EDT, [facility] #[id number], 162, cm, 10/09/21 16:19:00 EDT, Height, 86.3, [...] each, 0 Refills, Maintenance, 06/04/20 16:46:00 EDT, [facility] #[id number], OK to sub for any gallon prep, used as directed, 162.56, cm, 05/23/20 14:31:00 EDT, Height, 77, kg, 03/21/20 15:04:00 EST, Dry We... Start Date: 06/04/20 Status: Ordered Senna 8.6 mg oral tablet 1-3 tablet, By Mouth, Daily, for constipation, # 90 tablet, Refills 5, Tot. Refills 5, Maintenance,03/26/20 15:25:00 EST, Route to Pharmacy Electronically, [facility] #[id number] Tablet, 162.56, cm, 03/21/20 15:01:00 EST, Height, [...] tablet, 2 Refills, Maintenance, 12/23/21 16:29:00 EDT, [facility] #09561, 162.56, cm, 12/05/21 14:12:00 EDT, Height, 87.6, kg, 10/24/21 8:00:00 EDT, Dry Weight Start Date: 12/23/21 Status: Ordered Suboxone 8 mg-2 mg Sublingual Film 2.5 film, Sublingual, Daily, dissolve under the tongue may fill less due 01/30/2022 Sc[facility] [id number] Sun [id number], # 70 film, 0 Refills, Maintenance, 01/30/22 11:01:00 EST, Film, [facility], 2.5 film Subling... Start Date: 01/30/22 Stop Date: 02/27/22 Status: Ordered Suboxone 8 mg-2 mg Sublingual Film 2.5 film, Sublingual, Daily, dissolve under the tongue increase in dose Iveth [id number] coveringfor [place] due on/after 08/22/2021, # 35 film, 0 Refills, Maintenance, 08/22/21 9:27:00 EDT, Film,[facility], 2.5 film Subli... Start Date: 08/22/21 Stop Date: 09/05/21 Status: Ordered SUMAtriptan 25 mg oral tablet 1 tablet = 25 mg, By Mouth, Daily, PRN as needed for migraine headache, may repeat dose after 2 hours up to a maximum of 2, # 6 tablet, 1 Refills, Maintenance, 03/02/20 19:47:00 EST, Tablet, [facility] #[id number], 162.56, cm, 01/04/20 9:40:00 ES... Start Date: 03/02/20 Status: Ordered zolpidem 5 mg oral tablet 1 tablet = 5 mg, By Mouth, Daily at bedtime, PRN as needed for sleep, covering for Dr. 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 2genotype 02/02: [id number] is only mutation detected 3death of sister, caring for mother w/ dementia 4repeat screening colonoscopy in 2020 Social History Social History Type Response Smoking Status Former smoker, quit more than 30 days ago entered on: 12/05/21 Sex Patient Care team information Care Team Personnel Name: Kahlil Sun MD Position: [facility] Primary Care Physician Member Role: PCP Address: Address: [address] [place] [address] Name: Sharri Prince Position: [facility] PCO Associate Professional Member Role: Lifetime Consulting Provider Care Team Related Persons Name: SHANITA MENDOZA Address: home [address] [place] [address] Name: SHANITA MENDOZA Address: home [address] Name: ULICES PEARSON Name: ULICES ESPARZA Address: [place] [address] Name: LALA LI
--- OUTSIDE RECORDS SUMMARY | 2022-12-13 21:29 | XMS_ITS | Continuity of Care Document ---
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 2Result Comment: #2, [facility] 3Result Comment: [facility] 4Result Comment: pharmacy 5Location History: [facility] 6Admin [...] tablet, 5 Refills, Maintenance, 01/08/21 18:41:00 EST, [facility] #[id number], 162, cm, 12/17/20 23:19:00 EDT, Height, 86.3, kg, 09/29/20 15:30:00 EDT, Dry Weight Start Date: 01/08/21 Stop Date: 02/07/21 Status: Ordered Albuterol (Eqv-ProAir HFA) 90 mcg/inh inhalation aerosol 2 puffs, Inhalation, Every 4 hours, PRN NEEDED FOR WHEEZING/SHORTNESS OF BREATH, USE WITH SPACERCHAMBER, # 8.5 Gm, 5 Refills, [email or web address] #[id number], 16, INHALE 2 PUFFS INTO LUNGS EVERY 4 HOURS NEEDED FOR WHEEZING/SHORTNESS OF BREATH. USE... Start Date: 11/13/20 Status: Ordered albuterol 0.083% inhalation solution 3 mL = 2.5 mg, Inhalation, Every 6 hours, PRN Wheezing/Shortness of Breath, # 60 each, 0 Refills, Maintenance, 06/07/20 12:51:00 EDT, Solution, [facility] #[id number], 162.56, cm, 05/23/20 14:31:00 EDT, Height, 77, [...] 2 Refills, Maintenance, 08/30/22 11:09:00 EDT, Gel, [email or web address] #[email or web address], 1 applic... Start Date: 08/30/22 Status: Ordered Biktarvy oral tablet 1 tablet, By Mouth, Daily, # 30 tablet, 12 Refills, Maintenance, 04/17/22 7:54:00 EST, [email or web address] #[id number], 1 tablet By Mouth Daily, 162.56, cm, 04/16/22 16:00:00 EST, Height, 87.6, kg, 10/24/21 8:00:00 EDT, Dry Weight Start Date: 04/17/22 Status: Ordered Biktarvy oral tablet See Instructions, TAKE 1 TABLET BY MOUTH DAILY, # 90 tablet, 0 Refills, Maintenance, 07/15/22 13:50:00 EDT, [email or web address] #[id number], 90, TAKE 1 TABLET BY MOUTH DAILY, [...] 1 Refills, Maintenance, 07/10/21 18:35:00 EDT, Tablet, [email or web address] #[email or web address], Partial fill upon patient request if the prescription is for a schedule II opioid drug., 162, cm, 06/19/21 15:40:00 EDT... Start Date: 07/10/21 Status: Ordered cloNIDine 0.1 mg oral tablet 1, tablet, By Mouth, 3 times a day, PRN, # 90 tablet, Refills 11, Tot. Refills 11, Maintenance, NEEDED FOR ANXIETY, 08/12/22 15:06:00 EDT, Route to Pharmacy Electronically, [facility] #[id number], 162.56, cm, 07/30/22 10:55:00 EDT, Height, 79.... Start Date: 08/12/22 Status: Ordered Colace Clear 50 mg oral capsule 1 capsule = 50 mg, By Mouth, 2 times a day, PRN as needed for constipation, # 60 capsule, 0 Refills, Maintenance, 12/05/21 15:09:00 EDT, [email or web address] #[email or web address], Partial fill upon patient requestif the prescription is for a schedule II opioid nhi... Start Date: 12/05/21 Status: Ordered diclofenac 1% topical gel = 2 Gm, Topically, 4 times a day, PRN for pain, not to exceed: 10 gm/day, # 100 Gm, 1 Refills, Maintenance, 05/29/21 16:52:00 EDT, Gel, [facility], Partial fill upon patient request if the prescription is for a schedule II opioid... Start Date: 05/29/21 Status: Ordered Dulera 200 mcg-5 mcg/inh inhalation aerosol 2 puffs, Inhalation, 2 times a day, # 1 each, 3 Refills, Maintenance, 01/28/21 16:44:00 EST, Aerosol, [facility], STOP FLOVENT, 2 puffs Inhalation 2 times a day,x30 days, 162, cm,01/28/21 16:02:00 EST, Height, 86.3, kg, 09/29/20 1... Start Date: 01/28/21 Stop Date: 05/28/21 Status: Ordered escitalopram 20 mg oral tablet 1 tablet = 20 mg, By Mouth, Daily, # 90 tablet, 0 Refills, Maintenance, 07/30/22 12:03:00 EDT, Tablet, [email or web address] #[id number], Partial fill upon patient request if the prescription is for a schedule II opioid drug., 162.56, cm, 07/30/22 10:55:00... Start Date: 07/30/22 Status: Ordered ferrous fumarate 324 mg oral tablet 1 tablet = 324 mg, By Mouth, Every other day, # 45 tablet, 0 Refills, Maintenance, 07/31/22 11:19:00 EDT, Tablet, [facility] #[id number], Partial fill upon patient request if the [...] Gm, 5 Refills, Maintenance, 07/19/19 15:19:00 EDT, [place], [facility] #09053, 2 sprays Nares, Both Daily in AM,x30 [...] 08/30/22 13:09:00 EDT, Route to Pharmacy Electronically, [email or web address] #[id number], 162.56, cm, 08/20/22 13:54:00 EDT, Height, 79.54, [...] 2 Refills, Maintenance, 07/30/22 12:17:00 EDT, Syrup, [facility] #71976, 30 mL By Mouth 4 times a day, 162.56, cm, 07/30/22 10:55:00 EDT,Height, 79.54, kg, 07/30/22 10:55:00 EDT, Dry Weight Start Date: 07/30/22 Status: Ordered losartan 100 mg oral tablet 1 tablet, By Mouth, Daily, # 30 tablet, 5 Refills, [facility] #86665, 162, cm, 10/09/21 16:19:00 EDT, Height, 86.3, kg, 09/29/20 15:30:00 EDT, Dry Weight Start Date: 10/20/21 Status: Ordered meclizine 25 mg oral tablet 1 tablet = 25 mg, By Mouth, 2 times a day, # 30 tablet, 1 Refills, Maintenance, 07/10/21 17:25:00 EDT, Tablet, [facility] #[id number], 162, cm, 06/19/21 15:40:00 EDT, Height, 86.3, kg, 09/29/20 15:30:00 EDT, Dry Weight Start Date: 07/10/21 Status: Ordered multivitamin with iron Multiple Vitamins with Iron oral tablet 1 tablet, By Mouth, Daily, # 30 tablet, 11 Refills, Maintenance, 04/17/22 7:51:00 EST, Tablet, [facility] #05693, 1 tablet By Mouth Daily, 162.56, cm, 04/16/22 16:00:00 EST, Height, 87.6, kg, 10/24/21 8:00:00 EDT, Dry Weight Start Date: 04/17/22 Status: Ordered Narcan 4 mg/0.1 mL nasal spray = 4 mg, Inhalation, Once, # 2 each, 1 Refills, Soft Stop, 10/29/20 12:23:00 EDT, [facility] #[id number], Partial fill upon patient request if the prescription is for a schedule II opioid drug., 162, cm, 09/29/20 15:30:00 EDT, Height, 86.3, kg, 08... Start Date: 10/29/20 Status: Ordered ondansetron 4 mg oral tablet 1 tablet = 4 mg, By Mouth, Daily, PRN Nausea & Vomiting, # 10 tablet, 3 Refills, Maintenance, 06/25/22 17:28:00 EDT, [facility] #[id number], 162.56, cm, 06/25/22 16:16:00 EDT, Height, 87.6, kg, 10/24/21 8:00:00 EDT, Dry Weight Start Date: 06/25/22 Status: Ordered pantoprazole 20 mg oral delayed release tablet 1 tablet, By Mouth, Daily, # 30 tablet, 2 Refills, Maintenance, 06/19/22 10:56:00 EDT, 162.56, cm, 05/07/22 12:32:00 EST, Height, 87.6, kg, 10/24/21 8:00:00 EDT, Dry Weight Start Date: 06/19/22 Status: Ordered rifAXIMin 550 mg oral tablet 1 tablet = 550 mg, By Mouth, 2 times a day, # 60 tablet, 2 Refills, Maintenance, 08/21/22 17:50:00 EDT, Tablet, [email or web address] #[id number], this is correct dose. 200mg Rx just sent by mistake., 162.56, cm, 08/20/22 13:54:00 EDT, Height, 79.54, kg, 06... Start Date: 08/21/22 Status: Ordered Senna 8.6 mg oral tablet 1-3 tablet, By Mouth, Daily, for constipation, # 90 tablet, Refills 5, Tot. Refills 5, Maintenance,03/26/20 15:25:00 EST, Route to Pharmacy Electronically, [email or web address] #[id number] Tablet, 162.56, cm, 03/21/20 15:01:00 EST, Height, [...] tablet, 5 Refills, Maintenance, 04/17/22 7:53:00 EST, [facility] #[id number], 162.56, cm, 04/16/22 16:00:00 EST, Height, 87.6, kg, 10/24/21 8:00:00 EDT, Dry Weight Start Date: 04/17/22 Status: Ordered Suboxone 8 mg-2 mg Sublingual Film 2 film, Sublingual, Daily, [id number] [place]av[place] covering [id number] [place] dissolve under the tongue may fill less due 09/03/2022, # 14 film, 0 Refills, Maintenance, 09/03/22 11:42:00 EDT, Film, [facility], 2 film Sublingual Daily,x7... Start Date: 09/03/22 Stop Date: 09/10/22 Status: Ordered Suboxone 8 mg-2 mg Sublingual Film 2 film, Sublingual, Daily, [id number] [place] covering [id number] [place] dissolve under the tongue may fill less due 09/10/2022, # 14 film, 0 Refills, Maintenance, 09/03/22 12:54:00 EDT, Film, [facility], 2 film Sublingual Daily,x... Start Date: 09/03/22 Stop Date: 09/10/22 Status: Ordered SUMAtriptan 25 mg oral tablet 1 tablet = 25 mg, By Mouth, Daily, PRN as needed for migraine headache, may repeat dose after 2 hours up to a maximum of 2, # 6 tablet, 1 Refills, Maintenance, 03/02/20 19:47:00 EST, Tablet, [facility] #[id number], 162.56, cm, 01/04/20 9:40:00 ES... Start Date: 03/02/20 Status: Ordered zolpidem 5 mg oral tablet 0.5 tablet = 2.5 mg, By Mouth, Daily at bedtime, PRN as needed for sleep, Note decrease in dose., #14 tablet, 1 Refills, Maintenance, 09/10/22 17:51:00 EDT, [facility] #[id number], 09/10/22, 162.56, cm, 08/20/22 13:54:00 EDT, Height, [...] use disorder Confirmed Active Pancytopenia Confirmed Active *[id number] Rehabilitation Supervisor April Saavedra Confirmed Active Portal hypertensive gastropathy [...] tolerance, and QD need over. 2genotype 02/02: [id number] is only mutation detected 3death of sister, caring for mother w/ dementia 4repeat screening colonoscopy in 2020 Social History Social History Type Response Smoking Status Former smoker, quit more than 30 days ago entered on: 12/05/21 Sex Patient Care team information Care Team Personnel Name: Kahlil Sun MD Position: [facility] Physician - Primary Care Member Role: PCP Address: Address: [address] [place] [address] Name: Sharri Prince Position: [facility] PCO Associate Professional Member Role: Lifetime Consulting Provider Care Team Related Persons Name: SHANITA MENDOZA Address: home [address] [place] [id number] Name: SHANITA MENDOZA [facility] Address: home [address] Name: ULICES PEARSON Name: ULICES ESPARZA Address: [place] [address] Name: LALA LI
--- OUTSIDE RECORDS SUMMARY | 2022-12-13 21:29 | XMS_ITS | Continuity of Care Document ---
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 2Result Comment: #2, [facility] 3Result Comment: [facility] 4Result Comment: pharmacy 5Location History: [facility] 6Admin Note: vis 08/31/11 7Admin Note: ADMIN.BY RN 8Result Comment: [facility] 9Admin Note: Admin. by RN 10Admin Note: Admin. by RN 11Admin Note: Admin. 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 USE... Start Date: 11/13/20 Status: Ordered albuterol 0.083% inhalation solution 3 mL = 2.5 mg, Inhalation, Every 6 hours, PRN Wheezing/Shortness of Breath, # 60 each, 0 Refills, Maintenance, 06/07/20 12:51:00 EDT, Solution, [facility] #[id number], 162.56, cm, 05/23/20 14:31:00 EDT, Height, 77, [...] tablet, 3 Refills, Maintenance, 06/13/21 22:19:00 EDT, [facility] #[id number], 1 tablet By Mouth Daily, 162, cm, [...] 2 Refills, Maintenance, 06/29/19 16:02:00 EDT, Tablet, [facility] #[id number], 162.56, cm, 05/03/19 16:30:00 EST, Height, 72.3, kg, 09/26/18 16:01:00 EDT, Dry Weight Start Date: 06/29/19 Status: Ordered cloNIDine 0.1 mg oral tablet 0.1 mg, 1, tablet, By Mouth, 3 times a day, as needed for anxiety, # 25 tablet, Refills 0, Tot. Refills 0, Maintenance, 10/10/19 21:36:00 EDT, Route to Pharmacy Electronically, [facility] #[id number], 162.56, cm, 10/09/19 10:36:00 EDT, Height, 72... Start Date: 10/10/19 Status: Ordered diclofenac 1% topical gel = 2 Gm, Topically, 4 times a day, PRN for pain, not to exceed: 10 gm/day, # 100 Gm, 1 Refills, Maintenance, 05/29/21 16:52:00 EDT, Gel, [facility], Partial fill upon patient request if the prescription is for a schedule II opioid... Start Date: 05/29/21 Status: Ordered Dulera 200 mcg-5 mcg/inh inhalation aerosol 2 puffs, Inhalation, 2 times a day, # 1 each, 3 Refills, Maintenance, 01/28/21 16:44:00 EST, Aerosol, [facility], STOP FLOVENT, 2 puffs Inhalation 2 times a day,x30 days, 162, cm,01/28/21 16:02:00 EST, Height, 86.3, kg, 09/29/20 1... Start Date: 01/28/21 Stop Date: 05/28/21 Status: Ordered escitalopram 5 mg oral tablet 1 tablet = 5 mg, By Mouth, Daily, # 30 tablet, 11 Refills, Maintenance, 05/07/21 9:48:00 EST, Tablet, [facility] #[id number], Partial fill upon patient request if the prescription is for a schedule II opioid drug., 162, cm, 05/07/21 8:46:00 EST,... Start Date: 05/07/21 Status: Ordered Flonase 50 mcg/inh nasal spray 2 sprays, Nares, Both, Daily in AM, # 16 Gm, 5 Refills, Maintenance, 07/19/19 15:19:00 EDT, [place], [facility] #[id number], 2 sprays Nares, Both Daily in AM,x30 days, 162.56, cm, 05/03/19 16:30:00 EST, Height, 72.3, kg, 09/26/18 16:01:00 EDT, Dry... Start Date: 07/19/19 Stop Date: 01/15/20 Status: Ordered fluconazole 150 mg oral tablet 1 tablet = 150 mg, By Mouth, Once, # 1 tablet, 1 Refills, Soft Stop, 01/08/21 19:37:00 EST, Tablet,[facility] #[id number], 162, cm, 12/17/20 23:19:00 EDT, Height, 86.3, [...] 04/24/21 12:37:00 EST, Route to Pharmacy Electronically, [facility] #[id number], STOP HCTZ, 162, cm, 03/24/21 18:41:00 EST, [...] # 1 each, Maintenance, [facility] Blood pressure monitor neededto monitor blood pressure [...] 05/12/18 14:45:33 EDT, Route to Pharmacy Electronically, [id number], [facility] Start Date: 05/12/18 Status: Ordered LORazepam 0.5 mg oral tablet 0.5 tablet = 0.25 mg, By Mouth, 2 times a day, PRN as needed for anxiety, # 20 tablet, 1 Refills, Maintenance, 05/16/19 23:11:00 EDT, Tablet, [facility] #[id number], 162.56, cm, 05/03/19 16:30:00 EST, Height, 72.3, kg, 09/26/18 16:01:00 EDT, Dry... Start Date: 05/16/19 Status: Ordered losartan 100 mg oral tablet 1 tablet, By Mouth, Daily, # 30 tablet, 5 Refills, Maintenance, 09/24/20 16:00:00 EDT, [facility] #[id number], 162, cm, 09/19/20 15:59:00 EDT, Height, 82.1, kg, 06/08/20 17:25:00 EDT, Dry Weight Start Date: 09/24/20 Status: Ordered meclizine 25 mg oral tablet 1 tablet = 25 mg, By Mouth, 2 times a day, # 30 tablet, 1 Refills, Maintenance, 03/30/19 15:49:00 EST, Tablet, [facility] #[id number], 162.56, cm, 03/08/19 14:34:00 EST, Height, 72.3, kg, 09/26/18 16:01:00 EDT, Dry Weight Start Date: 03/30/19 Status: Ordered multivitamin with iron Multiple Vitamins with Iron oral tablet 1 tablet, By Mouth, Daily, # 30 tablet, 11 Refills, Maintenance, 05/07/21 9:45:00 EST, Tablet, [facility] #[id number], Partial fill upon patient request if the prescription is for a schedule II opioid drug., 1 tablet By Mouth Daily, 162, cm, ... Start Date: 05/07/21 Status: Ordered Narcan 4 mg/0.1 mL nasal spray = 4 mg, Inhalation, Once, # 2 each, 1 Refills, Soft Stop, 10/29/20 12:23:00 EDT, [facility] #[id number], Partial fill upon patient request if the [...] each, 0 Refills, Maintenance, 06/04/20 16:46:00 EDT, [facility] #[id number], OK to sub for any gallon prep, used as directed, 162.56, cm, 05/23/20 14:31:00 EDT, Height, 77, kg, 03/21/20 15:04:00 EST, Dry We... Start Date: 06/04/20 Status: Ordered predniSONE 50 mg oral tablet 1 tablet = 50 mg, By Mouth, Daily, # 7 tablet, 0 Refills, Maintenance, 01/28/21 16:37:00 EST, Tablet, [facility], Partial fill upon patient request if the prescription is for a schedule II opioid drug., 162, cm, 01/28/21 16:02:00 E... Start Date: 01/28/21 Stop Date: 02/04/21 Status: Ordered Senna 8.6 mg oral tablet 1-3 tablet, By Mouth, Daily, for constipation, # 90 tablet, Refills 5, Tot. Refills 5, Maintenance,03/26/20 15:25:00 EST, Route to Pharmacy Electronically, [facility] #[id number] Tablet, 162.56, cm, 03/21/20 15:01:00 EST, Height, [...] 5 Refills, Maintenance, 04/24/21 12:36:00 EST, Tablet, [facility] #[id number], STOP HCTZ, 162, cm, 03/24/21 18:41:00 EST, [...] under the tongue increase in dose Dino [id number] due on/after 06/12/2021, # 35 film, 0 Refills, Maintenance, 06/09/21 22:57:00 EDT, Film, [facility], 2.5 film Sublingual Daily,x14 days,In... Start Date: 06/09/21 Stop Date: 06/23/21 Status: Ordered SUMAtriptan 25 mg oral tablet 1 tablet = 25 mg, By Mouth, Daily, PRN as needed for migraine headache, may repeat dose after 2 hours up to a maximum of 2, # 6 tablet, 1 Refills, Maintenance, 03/02/20 19:47:00 EST, Tablet, [facility] #[id number], 162.56, cm, 01/04/20 9:40:00 ES... Start Date: 03/02/20 Status: Ordered Zofran 4 mg oral tablet 1 tablet = 4 mg, By Mouth, 2 times a day, PRN Nausea & Vomiting, # 10 tablet, 1 Refills, Maintenance, 06/19/21 17:01:00 EDT, Tablet, [facility] #32807, 162, cm, 06/19/21 15:40:00 EDT, Height, 86.3, kg, 09/29/20 15:30:00 EDT, Dry Weight Start Date: 06/19/21 Status: Ordered zolpidem 5 mg oral tablet 1 tablet = 5 mg, By Mouth, Daily at bedtime, PRN as needed for sleep, # 30 tablet, 0 Refills, Maintenance, 06/28/21 16:47:00 EDT, [facility] #[id number], Partial fill upon patient request if theprescription [...] Obese class I(Confirmed) Active Opioid dependence(Confirmed) Active *[id number] Care Partn er April Saavedra(Confirmed) Active Health [...] tolerance, and QD need over. 2genotype 02/02: [id number] is only mutation detected 3death of sister, caring for mother w/ dementia 4repeat screening colonoscopy in 2020 Social History Social History Type Response Smoking Status Former smoker, quit more than 30 days ago entered on: 10/29/20 Sex
--- OUTSIDE RECORDS SUMMARY | 2022-12-13 21:29 | XMS_ITS | Continuity of Care Document ---
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 2Result Comment: #2, [facility] 3Result Comment: [facility] 4Result Comment: pharmacy 5Location History: [facility] 6Admin Note: vis 08/31/11 7Admin Note: ADMIN.BY RN 8Result Comment: [facility] 9Admin Note: Admin. by RN 10Admin Note: Admin. by RN 11Admin Note: Admin. 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 Start Date: 09/12/20 Status: Ordered acyclovir 400 mg oral tablet 1 tablet = 400 mg, By Mouth, 2 times a day, # 10 tablet, 5 Refills, Maintenance, 01/08/21 18:41:00 EST, [facility] #[id number], 162, cm, 12/17/20 23:19:00 EDT, Height, 86.3, kg, 09/29/20 15:30:00 EDT, Dry Weight Start Date: 01/08/21 Stop Date: 02/07/21 Status: Ordered Albuterol (Eqv-ProAir HFA) 90 mcg/inh inhalation aerosol 2 puffs, Inhalation, Every 4 hours, PRN NEEDED FOR WHEEZING/SHORTNESS OF BREATH, USE WITH SPACERCHAMBER, # 8.5 Gm, 5 Refills, [facility] #[id number], 16, INHALE 2 PUFFS INTO LUNGS EVERY 4 HOURS NEEDED FOR WHEEZING/SHORTNESS OF BREATH. USE... Start Date: 11/13/20 Status: Ordered albuterol 0.083% inhalation solution 3 mL = 2.5 mg, Inhalation, Every 6 hours, PRN Wheezing/Shortness of Breath, # 60 each, 0 Refills, Maintenance, 06/07/20 12:51:00 EDT, Solution, [facility] #[id number], 162.56, cm, 05/23/20 14:31:00 EDT, Height, 77, [...] tablet, 3 Refills, Maintenance, 03/02/20 19:50:00 EST, [facility] #[id number], 1 tablet By Mouth Daily, 162.56, cm, [...] 2 Refills, Maintenance, 06/29/19 16:02:00 EDT, Tablet, [facility] #[id number], 162.56, cm, 05/03/19 16:30:00 EST, Height, 72.3, kg, 09/26/18 16:01:00 EDT, Dry Weight Start Date: 06/29/19 Status: Ordered cloNIDine 0.1 mg oral tablet 0.1 mg, 1, tablet, By Mouth, 3 times a day, as needed for anxiety, # 25 tablet, Refills 0, Tot. Refills 0, Maintenance, 10/10/19 21:36:00 EDT, Route to Pharmacy Electronically, [facility] #[id number], 162.56, cm, 10/09/19 10:36:00 EDT, Height, 72... Start Date: 10/10/19 Status: Ordered Dulera 200 mcg-5 mcg/inh inhalation aerosol 2 puffs, Inhalation, 2 times a day, # 1 each, 3 Refills, Maintenance, 01/28/21 16:44:00 EST, Aerosol, [facility], STOP FLOVENT, 2 puffs Inhalation [...] Gm, 5 Refills, Maintenance, 07/19/19 15:19:00 EDT, [place], [facility] #[id number], 2 sprays Nares, Both Daily in AM,x30 days, 162.56, cm, 05/03/19 16:30:00 EST, Height, 72.3, kg, 09/26/18 16:01:00 EDT, Dry... Start Date: 07/19/19 Stop Date: 01/15/20 Status: Ordered fluconazole 150 mg oral tablet 1 tablet = 150 mg, By Mouth, Once, # 1 tablet, 1 Refills, Soft Stop, 01/08/21 19:37:00 EST, Tablet,[facility] #[id number], 162, cm, 12/17/20 23:19:00 EDT, Height, 86.3, [...] 01/28/21 16:28:00 EST, Route to Pharmacy Electronically, [facility], STOP HCTZ, 162, cm, 01/28/21 16:02:00 [...] Instructions, # 1 each, Maintenance, covering for [facility] Blood pressure monitor neededto monitor blood [...] 05/12/18 14:45:33 EDT, Route to Pharmacy Electronically, [id number], [facility] Start Date: 05/12/18 Status: Ordered LORazepam 0.5 mg oral tablet 0.5 tablet = 0.25 mg, By Mouth, 2 times a day, PRN as needed for anxiety, # 20 tablet, 1 Refills, Maintenance, 05/16/19 23:11:00 EDT, Tablet, [facility] #[id number], 162.56, cm, 05/03/19 16:30:00 EST, Height, 72.3, kg, 09/26/18 16:01:00 EDT, Dry... Start Date: 05/16/19 Status: Ordered losartan 100 mg oral tablet 1 tablet, By Mouth, Daily, # 30 tablet, 5 Refills, Maintenance, 09/24/20 16:00:00 EDT, [facility] #[id number], 162, cm, 09/19/20 15:59:00 EDT, Height, 82.1, kg, 06/08/20 17:25:00 EDT, Dry Weight Start Date: 09/24/20 Status: Ordered meclizine 25 mg oral tablet 1 tablet = 25 mg, By Mouth, 2 times a day, # 30 tablet, 1 Refills, Maintenance, 03/30/19 15:49:00 EST, Tablet, [facility] #[id number], 162.56, cm, 03/08/19 14:34:00 EST, Height, 72.3, kg, 09/26/18 16:01:00 EDT, Dry Weight Start Date: 03/30/19 Status: Ordered Narcan 4 mg/0.1 mL nasal spray = 4 mg, Inhalation, Once, # 2 each, 1 Refills, Soft Stop, 10/29/20 12:23:00 EDT, [facility] #[id number], Partial fill upon patient request if the [...] each, 0 Refills, Maintenance, 06/04/20 16:46:00 EDT, [facility] #[id number], OK to sub for any gallon prep, used as directed, 162.56, cm, 05/23/20 14:31:00 EDT, Height, 77, kg, 03/21/20 15:04:00 EST, Dry We... Start Date: 06/04/20 Status: Ordered predniSONE 50 mg oral tablet 1 tablet = 50 mg, By Mouth, Daily, # 7 tablet, 0 Refills, Maintenance, 01/28/21 16:37:00 EST, Tablet, [facility], Partial fill upon patient request if the prescription is for a schedule II opioid drug., 162, cm, 01/28/21 16:02:00 E... Start Date: 01/28/21 Stop Date: 02/04/21 Status: Ordered Senna 8.6 mg oral tablet 1-3 tablet, By Mouth, Daily, for constipation, # 90 tablet, Refills 5, Tot. Refills 5, Maintenance,03/26/20 15:25:00 EST, Route to Pharmacy Electronically, [facility] #[id number] Tablet, 162.56, cm, 03/21/20 15:01:00 EST, Height, [...] 4 Refills, Maintenance, 01/28/21 16:29:00 EST, Tablet, [facility], STOP HCTZ, 162, cm, 01/28/21 16:02:00 EST, [...] under the tongue increase in dose 01/22/2021 [id number], # 60 film, 0 Refills, Maintenance, 01/22/21 13:49:00 EST, Film, [facility] #[id number], Partial fill upon patient request if the prescription is for a... Start Date: 01/22/21 Status: Ordered SUMAtriptan 25 mg oral tablet 1 tablet = 25 mg, By Mouth, Daily, PRN as needed for migraine headache, may repeat dose after 2 hours up to a maximum of 2, # 6 tablet, 1 Refills, Maintenance, 03/02/20 19:47:00 EST, Tablet, [facility] #[id number], 162.56, cm, 01/04/20 9:40:00 ES... Start Date: 03/02/20 Status: Ordered Zofran 4 mg oral tablet 1 tablet = 4 mg, By Mouth, 2 times a day, PRN Nausea & Vomiting, # 10 tablet, 0 Refills, Maintenance, 12/01/20 20:26:00 EDT, Tablet, [facility] #[id number], 162, cm, 10/29/20 17:08:00 EDT, Height, 86.3, [...] Obese class II(Confirmed) Active Opioid dependence(Confirmed) Active *[phone] Care Partn er April Saavedra(Confirmed) Active Health [...] tolerance, and QD need over. 2genotype 02/02: [id number] is only mutation detected 3death of sister, caring for mother w/ dementia 4repeat screening colonoscopy in 2020 Social History Social History Type Response Smoking Status Former smoker, quit more than 30 days ago entered on: 10/29/20 Sex
--- OUTSIDE RECORDS SUMMARY | 2022-12-13 21:29 | XMS_ITS | Continuity of Care Document ---
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..] events reported or observed. 2Result Comment: #2, [facility] 3Result Comment: [facility] 4Result Comment: pharmacy 5Location History: [facility] 6Admin Note: vis 08/31/11 7Admin Note: ADMIN.BY RN 8Result Comment: [facility] 9Admin Note: Admin. by RN 10Admin Note: Admin. by RN 11Admin Note: Admin. 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 Start Date: 09/12/20 Status: Ordered acyclovir 400 mg oral tablet 1 tablet = 400 mg, By Mouth, 2 times a day, # 10 tablet, 5 Refills, Maintenance, 01/08/21 18:41:00 EST, [facility] #89940, 162, cm, 12/17/20 23:19:00 EDT, Height, 86.3, kg, 09/29/20 15:30:00 EDT, Dry Weight Start Date: 01/08/21 Stop Date: 02/07/21 Status: Ordered Albuterol (Eqv-ProAir HFA) 90 mcg/inh inhalation aerosol 2 puffs, Inhalation, Every 4 hours, PRN NEEDED FOR WHEEZING/SHORTNESS OF BREATH, USE WITH SPACERCHAMBER, # 8.5 Gm, 5 Refills, [facility] #26228, 16, INHALE 2 PUFFS INTO LUNGS EVERY 4 HOURS NEEDED FOR WHEEZING/SHORTNESS OF BREATH. USE... Start Date: 11/13/20 Status: Ordered albuterol 0.083% inhalation solution 3 mL = 2.5 mg, Inhalation, Every 6 hours, PRN Wheezing/Shortness of Breath, # 60 each, 0 Refills, Maintenance, 06/07/20 12:51:00 EDT, Solution, [facility] #61603, 162.56, cm, 05/23/20 14:31:00 EDT, Height, 77, [...] tablet, 3 Refills, Maintenance, 03/02/20 19:50:00 EST, [facility] #59216, 1 tablet By Mouth Daily, 162.56, cm, [...] 2 Refills, Maintenance, 06/29/19 16:02:00 EDT, Tablet, [facility] #61762, 162.56, cm, 05/03/19 16:30:00 EST, Height, 72.3, kg, 09/26/18 16:01:00 EDT, Dry Weight Start Date: 06/29/19 Status: Ordered cloNIDine 0.1 mg oral tablet 0.1 mg, 1, tablet, By Mouth, 3 times a day, as needed for anxiety, # 25 tablet, Refills 0, Tot. Refills 0, Maintenance, 10/10/19 21:36:00 EDT, Route to Pharmacy Electronically, [facility] #73801, 162.56, cm, 10/09/19 10:36:00 EDT, Height, 72... Start Date: 10/10/19 Status: Ordered Dulera 200 mcg-5 mcg/inh inhalation aerosol 2 puffs, Inhalation, 2 times a day, # 1 each, 3 Refills, Maintenance, 01/28/21 16:44:00 EST, Aerosol, [facility], STOP FLOVENT, 2 puffs Inhalation [...] Gm, 5 Refills, Maintenance, 07/19/19 15:19:00 EDT, [place], [facility] #58239, 2 sprays Nares, Both Daily in AM,x30 days, 162.56, cm, 05/03/19 16:30:00 EST, Height, 72.3, kg, 09/26/18 16:01:00 EDT, Dry... Start Date: 07/19/19 Stop Date: 01/15/20 Status: Ordered fluconazole 150 mg oral tablet 1 tablet = 150 mg, By Mouth, Once, # 1 tablet, 1 Refills, Soft Stop, 01/08/21 19:37:00 EST, Tablet,[facility] #06269, 162, cm, 12/17/20 23:19:00 EDT, Height, 86.3, [...] 04/24/21 12:37:00 EST, Route to Pharmacy Electronically, [facility] #52034, STOP HCTZ, 162, cm, 03/24/21 18:41:00 EST, [...] 05/12/18 14:45:33 EDT, Route to Pharmacy Electronically, [id number], [facility] Start Date: 05/12/18 Status: Ordered LORazepam 0.5 mg oral tablet 0.5 tablet = 0.25 mg, By Mouth, 2 times a day, PRN as needed for anxiety, # 20 tablet, 1 Refills, Maintenance, 05/16/19 23:11:00 EDT, Tablet, [facility] #50433, 162.56, cm, 05/03/19 16:30:00 EST, Height, 72.3, kg, 09/26/18 16:01:00 EDT, Dry... Start Date: 05/16/19 Status: Ordered losartan 100 mg oral tablet 1 tablet, By Mouth, Daily, # 30 tablet, 5 Refills, Maintenance, 09/24/20 16:00:00 EDT, [facility] #77584, 162, cm, 09/19/20 15:59:00 EDT, Height, 82.1, kg, 06/08/20 17:25:00 EDT, Dry Weight Start Date: 09/24/20 Status: Ordered meclizine 25 mg oral tablet 1 tablet = 25 mg, By Mouth, 2 times a day, # 30 tablet, 1 Refills, Maintenance, 03/30/19 15:49:00 EST, Tablet, [facility] #69737, 162.56, cm, 03/08/19 14:34:00 EST, Height, 72.3, kg, 09/26/18 16:01:00 EDT, Dry Weight Start Date: 03/30/19 Status: Ordered Narcan 4 mg/0.1 mL nasal spray = 4 mg, Inhalation, Once, # 2 each, 1 Refills, Soft Stop, 10/29/20 12:23:00 EDT, [facility] #00879, Partial fill upon patient request if the prescription is for a schedule II opioid drug., 162, cm, 09/29/20 15:30:00 EDT, Height, 86.3, kg, 08... Start Date: 10/29/20 Status: Ordered pantoprazole 20 mg oral delayed release tablet See Instructions, TAKE 1 TABLET BY MOUTH DAILY IN THE MORNING TAKE 30 MINUTES BEFORE FIRST MEAL, # 30 tablet, 3 Refills, 162, cm, 03/24/21 18:41:00 EST, Height, 86.3, kg, 09/29/20 15:30:00 EDT, Dry Weight Start Date: 04/06/21 Status: Ordered PEG-3350 with Electrolytes (Eqv-GoLYTELY) oral powder for reconstitution See Instructions, used as directed, # 1 each, 0 Refills, Maintenance, 06/04/20 16:46:00 EDT, [facility] #46099, OK to sub for any gallon prep, used as directed, 162.56, cm, 05/23/20 14:31:00 EDT, Height, 77, kg, 03/21/20 15:04:00 EST, Dry We... Start Date: 06/04/20 Status: Ordered predniSONE 50 mg oral tablet 1 tablet = 50 mg, By Mouth, Daily, # 7 tablet, 0 Refills, Maintenance, 01/28/21 16:37:00 EST, Tablet, [facility], Partial fill upon patient request if the prescription is for a schedule II opioid drug., 162, cm, 01/28/21 16:02:00 E... Start Date: 01/28/21 Stop Date: 02/04/21 Status: Ordered Senna 8.6 mg oral tablet 1-3 tablet, By Mouth, Daily, for constipation, # 90 tablet, Refills 5, Tot. Refills 5, Maintenance,03/26/20 15:25:00 EST, Route to Pharmacy Electronically, [facility] #55001 Tablet, 162.56, cm, 03/21/20 15:01:00 EST, Height, [...] tablet, 5 Refills, Maintenance, 04/24/21 12:36:00 EST, [facility] #26151, STOP HCTZ, 162, cm, 03/24/21 18:41:00 EST, [...] dissolve under the tongue increase in dose [id number] due on/after 05/02/2021, # 35 film, 0 Refills, Maintenance, 04/30/21 23:06:00 EST, [facility] #85243,2.5 film Sublingual Daily,Instr:dissolve under... Start Date: 04/30/21 Status: Ordered SUMAtriptan 25 mg oral tablet 1 tablet = 25 mg, By Mouth, Daily, PRN as needed for migraine headache, may repeat dose after 2 hours up to a maximum of 2, # 6 tablet, 1 Refills, Maintenance, 03/02/20 19:47:00 EST, Tablet, [facility] #96440, 162.56, cm, 01/04/20 9:40:00 ES... Start Date: 03/02/20 Status: Ordered Zofran 4 mg oral tablet 1 tablet = 4 mg, By Mouth, 2 times a day, PRN Nausea & Vomiting, # 10 tablet, 0 Refills, Maintenance, 05/01/21 1:24:00 EST, Tablet, [facility] #40257, 162, cm, 03/24/21 18:41:00 EST, Height, 86.3, [...] Obese class II(Confirmed) Active Opioid dependence(Confirmed) Active *[id number] Care Partn er April Saavedra(Confirmed) Active Health care maintenance(Confirmed) Active Portal hypertensive gastropathy(Confirmed) 11/30/11 Active Psychological stress(Confirmed) 3 Active Rectal pain(Confirmed) Active TMJ - click(Confirmed) Active Tubular adenoma of colon(Confirmed) 4 03/30/17 Active Varicose veins of both lower extremities(Confirmed) Active Vitamin D deficiency(Confirmed) 2010 Active 1CBV + NFV on/off/on-suppressed, switch 04/08 to Truvada + ATV 500mg for QD adherence, switch 1/10 toTruvada + raltegravir for upperGI tolerance, and QD need over. 2genotype 02/02: [id number] is only mutation detected 3death of sister, caring for mother w/ dementia 4repeat screening colonoscopy in 2020 Social History Social History Type Response Smoking Status Former smoker, quit more than 30 days ago entered on: 10/29/20 Sex
--- OUTSIDE RECORDS SUMMARY | 2022-12-13 21:29 | XMS_ITS | Continuity of Care Document ---
Author Name Unknown Organization [facility] ter Address [address] [place] [id number]- Care Team Providers Care Wooden Tank Erector Name Role Phone Kahlil Sun MD Primary Care Physician [phone] Encounter [facility] [place] Date(s): 06/24/21 - 08/11/[address] [address]- Attending Physician: Kahlil Sun MD Admitting Physician: [...] events reported or observed. 2Result Comment: #2, [facility] 3Result Comment: [facility] 4Result Comment: pharmacy 5Location History: [facility] 6Admin Note: vis 08/31/11 7Admin Note: ADMIN.BY RN 8[facility] Comment: [facility] 9Admin Note: Admin. by RN 10Admin Note: Admin. by RN 11Admin Note: Admin. 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 USE... Start Date: 11/13/20 Status: Ordered albuterol 0.083% inhalation solution 3 mL = 2.5 mg, Inhalation, Every 6 hours, PRN Wheezing/Shortness of Breath, # 60 each, 0 Refills, Maintenance, 06/07/20 12:51:00 EDT, Solution, [facility] #94919, 162.56, cm, 05/23/20 14:31:00 EDT, Height, 77, [...] tablet, 3 Refills, Maintenance, 06/13/21 22:19:00 EDT, [facility] #32613, 1 tablet By Mouth Daily, 162, cm, [...] 1 Refills, Maintenance, 07/10/21 18:35:00 EDT, Tablet, Room #23093, Partial fill upon patient request if the prescription is for a schedule II opioid drug., 162, cm, 06/19/21 15:40:00 EDT... Start Date: 07/10/21 Status: Ordered cetirizine 10 mg oral tablet 1 tablet = 10 mg, By Mouth, Daily, For allergies., # 30 tablet, 2 Refills, Maintenance, 06/29/19 16:02:00 EDT, Tablet, Room #69558, 162.56, cm, 05/03/19 16:30:00 EST, Height, 72.3, kg, 09/26/18 16:01:00 EDT, Dry Weight Start Date: 06/29/19 Status: Ordered cloNIDine 0.1 mg oral tablet 0.1 mg, 1, tablet, By Mouth, 3 times a day, as needed for anxiety, # 25 tablet, Refills 0, Tot. Refills 0, Maintenance, 10/10/19 21:36:00 EDT, Route to Pharmacy Electronically, Room #82948, 162.56, cm, 10/09/19 10:36:00 EDT, Height, 72... Start Date: 10/10/19 Status: Ordered diclofenac 1% topical gel = 2 Gm, Topically, 4 times a day, PRN for pain, not to exceed: 10 gm/day, # 100 Gm, 1 Refills, Maintenance, 05/29/21 16:52:00 EDT, Gel, [facility], Partial fill upon patient request if the prescription is for a schedule II opioid... Start Date: 05/29/21 Status: Ordered Dulera 200 mcg-5 mcg/inh inhalation aerosol 2 puffs, Inhalation, 2 times a day, # 1 each, 3 Refills, Maintenance, 01/28/21 16:44:00 EST, Aerosol, [facility], STOP FLOVENT, 2 puffs Inhalation 2 times a day,x30 days, 162, cm,01/28/21 16:02:00 EST, Height, 86.3, kg, 09/29/20 1... Start Date: 01/28/21 Stop Date: 05/28/21 Status: Ordered escitalopram 10 mg oral tablet 1 tablet = 10 mg, By Mouth, Daily, # 30 tablet, 11 Refills, Maintenance, 07/31/21 17:50:00 EDT, Tablet, Room #04510, Partial fill upon patient request if the prescription is for a schedule II opioid drug., 162, cm, 07/31/21 16:00:00 ED... Start Date: 07/31/21 Status: Ordered Flonase 50 mcg/inh nasal spray 2 sprays, Nares, Both, Daily in AM, # 16 Gm, 5 Refills, Maintenance, 07/19/19 15:19:00 EDT, [place], Room #59044, 2 sprays Nares, Both Daily in AM,x30 days, 162.56, cm, 05/03/19 16:30:00 EST, Height, 72.3, kg, 09/26/18 16:01:00 EDT, Dry... Start Date: 07/19/19 Stop Date: 01/15/20 Status: Ordered fluconazole 150 mg oral tablet 1 tablet = 150 mg, By Mouth, Once, # 1 tablet, 1 Refills, Soft Stop, 01/08/21 19:37:00 EST, Tablet,[facility] #14759, 162, cm, 12/17/20 23:19:00 EDT, Height, 86.3, [...] 04/24/21 12:37:00 EST, Route to Pharmacy Electronically, [facility] #16291, STOP HCTZ, 162, cm, 03/24/21 18:41:00 EST, [...] Instructions, # 1 each, Maintenance, covering for [facility] Blood pressure monitor neededto monitor blood pressure [...] 05/12/18 14:45:33 EDT, Route to Pharmacy Electronically, [id number], [facility] Start Date: 05/12/18 Status: Ordered LORazepam 0.5 mg oral tablet 0.5 tablet = 0.25 mg, By Mouth, 2 times a day, PRN as needed for anxiety, # 20 tablet, 1 Refills, Maintenance, 05/16/19 23:11:00 EDT, Tablet, Room #42888, 162.56, cm, 05/03/19 16:30:00 EST, Height, 72.3, kg, 09/26/18 16:01:00 EDT, Dry... Start Date: 05/16/19 Status: Ordered losartan 100 mg oral tablet 1 tablet, By Mouth, Daily, # 30 tablet, 2 Refills, [facility] #70236, 162, cm, 06/19/21 15:40:00 EDT, Height, 86.3, kg, 09/29/20 15:30:00 EDT, Dry Weight Start Date: 07/10/21 Status: Ordered meclizine 25 mg oral tablet 1 tablet = 25 mg, By Mouth, 2 times a day, # 30 tablet, 1 Refills, Maintenance, 07/10/21 17:25:00 EDT, Tablet, [facility] #39653, 162, cm, 06/19/21 15:40:00 EDT, Height, 86.3, kg, 09/29/20 15:30:00 EDT, Dry Weight Start Date: 07/10/21 Status: Ordered multivitamin with iron Multiple Vitamins with Iron oral tablet 1 tablet, By Mouth, Daily, # 30 tablet, 11 Refills, Maintenance, 05/07/21 9:45:00 EST, Tablet, Room #82055, Partial fill upon patient request if the prescription is for a schedule II opioid drug., 1 tablet By Mouth Daily, 162, cm, 0... Start Date: 05/07/21 Status: Ordered Narcan 4 mg/0.1 mL nasal spray = 4 mg, Inhalation, Once, # 2 each, 1 Refills, Soft Stop, 10/29/20 12:23:00 EDT, [facility] #01599, Partial fill upon patient request if the [...] each, 0 Refills, Maintenance, 06/04/20 16:46:00 EDT, [facility] #58523, OK to sub for any gallon prep, used as directed, 162.56, cm, 05/23/20 14:31:00 EDT, Height, 77, kg, 03/21/20 15:04:00 EST, Dry We... Start Date: 06/04/20 Status: Ordered predniSONE 50 mg oral tablet 1 tablet = 50 mg, By Mouth, Daily, # 7 tablet, 0 Refills, Maintenance, 01/28/21 16:37:00 EST, Tablet, [facility], Partial fill upon patient request if the prescription is for a schedule II opioid drug., 162, cm, 01/28/21 16:02:00 E... Start Date: 01/28/21 Stop Date: 02/04/21 Status: Ordered Senna 8.6 mg oral tablet 1-3 tablet, By Mouth, Daily, for constipation, # 90 tablet, Refills 5, Tot. Refills 5, Maintenance,03/26/20 15:25:00 EST, Route to Pharmacy Electronically, Room #61604 Tablet, 162.56, cm, 03/21/20 15:01:00 EST, Height, [...] 5 Refills, Maintenance, 04/24/21 12:36:00 EST, Tablet, Room #37589, STOP HCTZ, 162, cm, 03/24/21 18:41:00 EST, [...] under the tongue increase in dose Iveth [id number] coveringfor Castro due on/after 07/25/2021, # 35 film, 0 Refills, Maintenance, 07/25/21 12:07:00 EDT, Film, [facility], 2.5 film Subl... Start Date: 07/25/21 Stop Date: 08/08/21 Status: Ordered SUMAtriptan 25 mg oral tablet 1 tablet = 25 mg, By Mouth, Daily, PRN as needed for migraine headache, may repeat dose after 2 hours up to a maximum of 2, # 6 tablet, 1 Refills, Maintenance, 03/02/20 19:47:00 EST, Tablet, [facility] #45298, 162.56, cm, 01/04/20 9:40:00 ES... Start Date: 03/02/20 Status: Ordered Zofran 4 mg oral tablet 1 tablet = 4 mg, By Mouth, 2 times a day, PRN Nausea & Vomiting, # 10 tablet, 1 Refills, Maintenance, 06/19/21 17:01:00 EDT, Tablet, [facility] #67057, 162, cm, 06/19/21 15:40:00 EDT, Height, 86.3, kg, 09/29/20 15:30:00 EDT, Dry Weight Start Date: 06/19/21 Status: Ordered zolpidem 5 mg oral tablet 1 tablet = 5 mg, By Mouth, Daily at bedtime, PRN as needed for sleep, # 25 tablet, 0 Refills, Maintenance, 07/31/21 17:57:00 EDT, [facility] #68464, Partial fill upon patient request if theprescription [...] Obese class I(Confirmed) Active Opioid dependence(Confirmed) Active *[id number] Care Partn er April Saavedra(Confirmed) Active Health [...] tolerance, and QD need over. 2genotype 02/02: [id number] is only mutation detected 3death of sister, caring for mother w/ dementia 4repeat screening colonoscopy in 2020 Social History Social History Type Response Smoking Status Former smoker, quit more than 30 days ago entered on: 10/29/20 Sex
--- OUTSIDE RECORDS SUMMARY | 2022-12-13 21:29 | XMS_ITS | Continuity of Care Document ---
Author Name Unknown Organization [facility] Address [address] [place] [address]- Care Team Providers Care Cuff Maker Name Role Phone Kahlil Sun MD Primary Care Physician Encounter [facility] Date(s): 06/12/20 - 07/12/20 [facility] [address] [place] [address]- Allergies, Adverse Reactions, Alerts Substance Reaction Severity [...] toxoids (Td) 03/10/01 Given 1Result Comment: #2, [facility] 2Result Comment: [facility] 3Result Comment: [facility] 4Result Comment: pharmacy 5Location History: [facility] 6Admin [...] tablet, 5 Refills, Maintenance, 01/26/20 16:20:00 EST, [facility], 162.56, cm, 10/09/19 10:36:00 EDT, Height, 72.3, kg, 09/26/18 16:01:00 EDT, Dry Weight Start Date: 01/26/20 Stop Date: 02/25/20 Status: Ordered albuterol 0.083% inhalation solution 3 mL = 2.5 mg, Inhalation, Every 6 hours, PRN Wheezing/Shortness of Breath, # 60 each, 0 Refills, Maintenance, 06/07/20 12:51:00 EDT, Solution, [facility] #18822, 162.56, cm, 05/23/20 14:31:00 EDT, Height, 77, [...] tablet, 3 Refills, Maintenance, 03/02/20 19:50:00 EST, [facility] #72828, 1 tablet By Mouth Daily, 162.56, cm, 01/04/20 9:40:00 EST, Height, 72.3, kg, 09/26/18 16:01:00 EDT, Dry Weight Start Date: 03/02/20 Status: Ordered Blood Pressure Meter Blood Pressure Meter, See Instructions, # 1 each, Refills 0, Tot. Refills 0, Maintenance, Use for, 07/11/18 16:11:47 EDT, Compound Start Date: 07/11/18 Status: Ordered buprenorphine-naloxone 2 mg-0.5 mg sublingual film 1 film, Sublingual, Daily, [place] [id number], # 14 film, 0 Refills, Maintenance, 06/17/20 16:56:00 EDT, [facility] #63478, Partial fill on request., 1 film Sublingual Daily,Instr:[place] [id number], 163, cm, 06/08/20 17:25:00 EDT, Height, 82.... Start Date: 06/17/20 Status: Ordered buprenorphine-naloxone 2 mg-0.5 mg sublingual film 0.25 each, Sublingual, Daily, [place] [id number], # 8 film, 0 Refills, Maintenance, 12/15/19 19:00:00 EDT, [facility] #07822, Partial fill on request., 0.25 each Sublingual Daily,Instr:[place] [id number], 162.56, cm, 10/09/19 10:36:00 EDT, [facility]... Start Date: 12/15/19 Status: Ordered cetirizine 10 mg oral tablet 1 tablet = 10 mg, By Mouth, Daily, For allergies., # 30 tablet, 2 Refills, Maintenance, 06/29/19 16:02:00 EDT, Tablet, [facility] #27020, 162.56, cm, 05/03/19 16:30:00 EST, Height, 72.3, kg, 09/26/18 16:01:00 EDT, Dry Weight Start Date: 06/29/19 Status: Ordered cloNIDine 0.1 mg oral tablet 0.1 mg, 1, tablet, By Mouth, 3 times a day, as needed for anxiety, # 25 tablet, Refills 0, Tot. Refills 0, Maintenance, 10/10/19 21:36:00 EDT, Route to Pharmacy Electronically, [facility] #42038, 162.56, cm, 10/09/19 10:36:00 EDT, Height, 72... [...] Gm, 5 Refills, Maintenance, 07/19/19 15:19:00 EDT, [place], [facility] #29315, 2 sprays Nares, Both Daily in AM,x30 days, 162.56, cm, 05/03/19 16:30:00 EST, Height, 72.3, kg, 09/26/18 16:01:00 EDT, Dry... Start Date: 07/19/19 Stop Date: 01/15/20 Status: Ordered Flovent HFA 44 mcg/inh inhalation aerosol 1 puffs, Inhalation, 2 times a day, # 1 each, 5 Refills, Maintenance, 06/07/20 12:52:00 EDT, Aerosol, [facility] #61111, 162.56, cm, 05/23/20 14:31:00 EDT, Height, 77, [...] # 1 each, Maintenance, covering for Sharri [facility] Blood pressure monitor neededto monitor blood pressure [...] 3 Refills, Maintenance, 03/02/20 19:48:00 EST, Tablet, [facility] #66269, 30 day supply preferred for present, 162.56, [...] 05/12/18 14:45:33 EDT, Route to Pharmacy Electronically, [id number], [facility] Start Date: 05/12/18 Status: Ordered LORazepam 0.5 mg oral tablet 0.5 tablet = 0.25 mg, By Mouth, 2 times a day, PRN as needed for anxiety, # 20 tablet, 1 Refills, Maintenance, 05/16/19 23:11:00 EDT, Tablet, [facility] #24526, 162.56, cm, 05/03/19 16:30:00 EST, Height, 72.3, kg, 09/26/18 16:01:00 EDT, Dry... Start Date: 05/16/19 Status: Ordered losartan 100 mg oral tablet 1 tablet = 100 mg, By Mouth, Daily, # 30 tablet, 2 Refills, Maintenance, 06/26/20 8:47:00 EDT, Tablet, [facility] #51970, 162, cm, 06/19/20 8:04:00 EDT, Height, 82.1, kg, 06/08/20 17:25:00 EDT, Dry Weight Start Date: 06/26/20 Status: Ordered meclizine 25 mg oral tablet 1 tablet = 25 mg, By Mouth, 2 times a day, # 30 tablet, 1 Refills, Maintenance, 03/30/19 15:49:00 EST, Tablet, [facility] #81075, 162.56, cm, 03/08/19 14:34:00 EST, Height, 72.3, [...] each, 0 Refills, Maintenance, 06/04/20 16:46:00 EDT, [facility] #37231, OK to sub for any gallon prep, [...] 12:51:00 EDT, Aerosol, Route to Pharmacy Electronically, [id number], [facility] #14165, 1... Start Date: 06/07/20 Status: Ordered Senna 8.6 mg oral tablet 1-3 tablet, By Mouth, Daily, for constipation, # 90 tablet, Refills 5, Tot. Refills 5, Maintenance,03/26/20 15:25:00 EST, Route to Pharmacy Electronically, [facility] #91814 Tablet, 162.56, cm, 03/21/20 15:01:00 EST, Height, 77, kg, ... Start Date: 03/26/20 Status: Ordered Spacer for inhalers Spacer for inhalers, See Instructions, # 1 each, Refills 0, Tot. Refills 0, Maintenance, Use with inhalers as directed. [place]., 06/07/19 15:07:00 EDT, Compound, 162.56, cm, 05/03/19 16:30:00 EST, Height, 72.3, kg, 09/26/18 16:01:00 EDT, Dry Weight Start Date: 06/07/19 Status: Ordered SUMAtriptan 25 mg oral tablet 1 tablet = 25 mg, By Mouth, Daily, PRN as needed for migraine headache, may repeat dose after 2 hours up to a maximum of 2, # 6 tablet, 1 Refills, Maintenance, 03/02/20 19:47:00 EST, Tablet, [facility] #24626, 162.56, cm, 01/04/20 9:40:00 ES... Start Date: 03/02/20 Status: Ordered Zofran 4 mg oral tablet 1 tablet = 4 mg, By Mouth, 2 times a day, PRN Nausea & Vomiting, # 10 tablet, 0 Refills, Maintenance, 05/04/20 17:09:00 EST, Tablet, [facility] #96110, 162.56, cm, 05/03/20 9:23:00 EST,Height, 77, kg, [...] 2016 Active Migraine(Confirmed) Active Opioid dependence(Confirmed) Active *[id number] Care Partn April Saavedra(Confirmed) Active Health care [...] tolerance, and QD need over. 2genotype 02/02: [id number] is only mutation detected 3death of sister, caring for mother w/ dementia 4repeat screening colonoscopy in 2020 Social History Social History Type Response Smoking Status Former smoker, quit more than 30 days ago entered on: 05/24/18 Sex
--- OUTSIDE RECORDS SUMMARY | 2022-12-13 21:29 | XMS_ITS | Continuity of Care Document ---
Author Name Unknown Organization [facility] Address [address] [place] [id number]- Care Team Providers Care Viticulture Teacher Name Role Phone Kahlil Sun MD Primary Care Physician [facility] Date[facility]): 01/04[facility]22 - 02/03/22 [facility]/[place] [address]- [place] Allergies, Adverse Reactions, Alerts Substance Reaction [...] events reported or observed. 2Result Comment: #2, [facility] 3Result Comment: [facility] 4Result Comment: pharmacy 5Location History: [facility] 6Admin Note: vis 08/31/11 7Admin Note: ADMIN.BY RN 8Result Comment: [facility] 9Admin Note: Admin. by RN 10Admin Note: Admin. by RN 11Admin Note: Admin. by RN 12Admin Note: vis 06/15/15 13Admin Note: dose #6 (3rd in 2nd series) 14Admin Note: dose #5 15Admin Note: #3 16Admin Note: LITO sanofi-pasteur 17Admin Note: ADMIN BEN, CEMENT SIDE LASTER 18Admin Note: BY LEXI Agudelo 19Admin Note: [...] 5 Refills, Maintenance, 12/05/21 14:43:00EDT, CR Tablet, [facility] #[id number], Partial fill upon patient request if the prescription is for a schedule II opioid drug., 162.56, cm, 12/05... Start Date: 12/05/21 Status: Ordered acyclovir 400 mg oral tablet 1 tablet = 400 mg, By Mouth, 2 times a day, # 10 tablet, 5 Refills, Maintenance, 01/08/21 18:41:00 EST, [facility] #[id number], 162, cm, 12/17/20 23:19:00 EDT, Height, 86.3, kg, 09/29/20 15:30:00 EDT, Dry Weight Start Date: 01/08/21 Stop Date: 02/07/21 Status: Ordered Albuterol (Eqv-ProAir HFA) 90 mcg/inh inhalation aerosol 2 puffs, Inhalation, Every 4 hours, PRN NEEDED FOR WHEEZING/SHORTNESS OF BREATH, USE WITH SPACERCHAMBER, # 8.5 Gm, 5 Refills, [facility] #[id number], 16, INHALE 2 PUFFS INTO LUNGS EVERY 4 HOURS NEEDED FOR WHEEZING/SHORTNESS OF BREATH. USE... Start Date: 11/13/20 Status: Ordered albuterol 0.083% inhalation solution 3 mL = 2.5 mg, Inhalation, Every 6 hours, PRN Wheezing/Shortness of Breath, # 60 each, 0 Refills, Maintenance, 06/07/20 12:51:00 EDT, Solution, [facility] #[id number], 162.56, cm, 05/23/20 14:31:00 EDT, Height, 77, [...] 01/04/22 19:11:00 EST, Route to Pharmacy Electronically, [facility] #[id number], 162.56, cm, 11/0... Start Date: 01/04/22 Status: Ordered Biktarvy oral tablet 1 tablet, By Mouth, Daily, # 90 tablet, 3 Refills, Maintenance, 06/13/21 22:19:00 EDT, [facility] #61683, 1 tablet By Mouth Daily, 162, cm, [...] 1 Refills, Maintenance, 07/10/21 18:35:00 EDT, Tablet, [facility] #[id number], Partial fill upon patient request if the prescription is for a schedule II opioid drug., 162, cm, 06/19/21 15:40:00 EDT... Start Date: 07/10/21 Status: Ordered cloNIDine 0.1 mg oral tablet 1, tablet, By Mouth, 3 times a day, PRN, # 270 tablet, Refills 0, Maintenance, NEEDED FOR ANXIETY, 01/01/22 10:42:00 EDT, Route to Pharmacy Electronically, [facility] #[id number], 162.56, cm,12/05/21 14:12:00 EDT, Height, 87.6, kg, 10/24/21 8... Start Date: 01/01/22 Status: Ordered Colace Clear 50 mg oral capsule 1 capsule = 50 mg, By Mouth, 2 times a day, PRN as needed for constipation, # 60 capsule, 0 Refills, Maintenance, 12/05/21 15:09:00 EDT, [facility] #[id number], Partial fill upon patient requestif the prescription is for a schedule II opioid nhi... Start Date: 12/05/21 Status: Ordered diclofenac 1% topical gel = 2 Gm, Topically, 4 times a day, PRN for pain, not to exceed: 10 gm/day, # 100 Gm, 1 Refills, Maintenance, 05/29/21 16:52:00 EDT, Gel, [facility], Partial fill upon patient request if the prescription is for a schedule II opioid... Start Date: 05/29/21 Status: Ordered Dulera 200 mcg-5 mcg/inh inhalation aerosol 2 puffs, Inhalation, 2 times a day, # 1 each, 3 Refills, Maintenance, 01/28/21 16:44:00 EST, Aerosol, [facility], STOP FLOVENT, 2 puffs Inhalation 2 times a day,x30 days, 162, cm,01/28/21 16:02:00 EST, Height, 86.3, kg, 09/29/20 1... Start Date: 01/28/21 Stop Date: 05/28/21 Status: Ordered escitalopram 10 mg oral tablet 1 tablet = 10 mg, By Mouth, Daily, # 30 tablet, 11 Refills, Maintenance, 07/31/21 17:50:00 EDT, Tablet, [facility] #[id number], Partial fill upon patient request if the [...] Gm, 5 Refills, Maintenance, 07/19/19 15:19:00 EDT, [place], [facility] #[id number], 2 sprays Nares, Both Daily in AM,x30 [...] Replace Required Details, Route to Pharmacy Electronically, [facility] #[id number], 162.56, cm,... Start Date: 11/27/21 Status: Ordered [...] 1 each, Maintenance, covering for [facility] Blood pressure monitor neededto monitor blood pressure DX: hypertension, 07/11/18 17:28:42 EDT, Compound Start Date: 07/11/18 Status: Ordered humidifier humidifier, See Instructions, # 1 each, Refills 0, Tot. Refills 0, Maintenance, use as directed forchronic sinusitis J32, 04/09/17 14:21:37 EST, Compound Start Date: 04/09/17 Status: Ordered losartan 100 mg oral tablet 1 tablet, By Mouth, Daily, # 30 tablet, 5 Refills, [facility] #[id number], 162, cm, 10/09/21 16:19:00 EDT, Height, 86.3, kg, 09/29/20 15:30:00 EDT, Dry Weight Start Date: 10/20/21 Status: Ordered meclizine 25 mg oral tablet 1 tablet = 25 mg, By Mouth, 2 times a day, # 30 tablet, 1 Refills, Maintenance, 07/10/21 17:25:00 EDT, Tablet, [facility] #[id number], 162, cm, 06/19/21 15:40:00 EDT, Height, 86.3, kg, 09/29/20 15:30:00 EDT, Dry Weight Start Date: 07/10/21 Status: Ordered multivitamin with iron Multiple Vitamins with Iron oral tablet 1 tablet, By Mouth, Daily, # 30 tablet, 11 Refills, Maintenance, 09/06/21 19:08:00 EDT, Tablet, [facility] #[id number], 1 tablet By Mouth Daily, 162, cm, 07/31/21 16:00:00 EDT, Height, 86.3, kg,09/29/20 15:30:00 EDT, Dry Weight Start Date: 09/06/21 Status: Ordered Narcan 4 mg/0.1 mL nasal spray = 4 mg, Inhalation, Once, # 2 each, 1 Refills, Soft Stop, 10/29/20 12:23:00 EDT, [facility] #[id number], Partial fill upon patient request if the prescription is for a schedule II opioid drug., 162, cm, 09/29/20 15:30:00 EDT, Height, 86.3, kg, 08... Start Date: 10/29/20 Status: Ordered ondansetron 4 mg oral tablet 1 tablet = 4 mg, By Mouth, Daily, PRN Nausea & Vomiting, # 10 tablet, 3 Refills, Maintenance, 10/08/21 22:17:00 EDT, [facility] #[id number], 162, cm, 10/09/21 16:19:00 EDT, Height, 86.3, [...] each, 0 Refills, Maintenance, 06/04/20 16:46:00 EDT, [facility] #[id number], OK to sub for any gallon prep, used as directed, 162.56, cm, 05/23/20 14:31:00 EDT, Height, 77, kg, 03/21/20 15:04:00 EST, Dry We... Start Date: 06/04/20 Status: Ordered Senna 8.6 mg oral tablet 1-3 tablet, By Mouth, Daily, for constipation, # 90 tablet, Refills 5, Tot. Refills 5, Maintenance,03/26/20 15:25:00 EST, Route to Pharmacy Electronically, [facility] #[id number] Tablet, 162.56, cm, 03/21/20 15:01:00 EST, Height, [...] tablet, 2 Refills, Maintenance, 12/23/21 16:29:00 EDT, [facility] #23172, 162.56, cm, 12/05/21 14:12:00 EDT, Height, 87.6, kg, 10/24/21 8:00:00 EDT, Dry Weight Start Date: 12/23/21 Status: Ordered Suboxone 8 mg-2 mg Sublingual Film 2.5 film, Sublingual, Daily, dissolve under the tongue may fill less due 01/30/[address] Scavron [id number] Sun [id number], # 70 film, 0 Refills, Maintenance, 01/30/22 11:01:00 EST, Film, [facility], 2.5 film Subling... Start Date: 01/30/22 Stop Date: 02/27/22 Status: Ordered Suboxone 8 mg-2 mg Sublingual Film 2.5 film, Sublingual, Daily, dissolve under the tongue increase in dose Iveth [id number] coveringfor Dino due on/after 08/22/2021, # 35 film, 0 Refills, Maintenance, 08/22/21 9:27:00 EDT, Film,[facility], 2.5 film Subli... Start Date: 08/22/21 Stop Date: 09/05/21 Status: Ordered SUMAtriptan 25 mg oral tablet 1 tablet = 25 mg, By Mouth, Daily, PRN as needed for migraine headache, may repeat dose after 2 hours up to a maximum of 2, # 6 tablet, 1 Refills, Maintenance, 03/02/20 19:47:00 EST, Tablet, [facility] #[id number], 162.56, cm, 01/04/20 9:40:00 ES... Start Date: 03/02/20 Status: Ordered zolpidem 5 mg oral tablet 1 tablet = 5 mg, By Mouth, Daily at bedtime, PRN as needed for sleep, covering for Dr. Sun, # 30 tablet, 1 Refills, Maintenance, 12/26/21 13:13:00 EDT, [facility] #22657, 162.56, cm, 12/05/21 14:12:00 EDT, Height, 87.6, [...] disorder Confirmed Active Opioid dependence Confirmed Active *[id number] Director Energy April Saavedra Confirmed Active Health care maintenance [...] tolerance, and QD need over. 2genotype 02/02: [id number] is only mutation detected 3death of sister, caring for mother w/ dementia 4repeat screening colonoscopy in 2020 Social History Social History Type Response Smoking Status Former smoker, quit more than 30 days ago entered on: 12/05/21 Sex Patient Care team information Care Team Personnel Name: Kahlil Sun MD Position: [facility] Primary Care Physician Member Role: PCP Address: Address: [address] [place] [address] Name: Sharri Prince Position: [facility] PCO Associate Professional Member Role: Lifetime Consulting Provider Care Team Related Persons Name: SHANITA MENDOZA Address: home [address] [place] [address] Name: SHANITA MENDOZA [facility] Address: home [address] Name: ULICES PEARSON Name: ULICES ESPARZA Address: [place] [address] Name: LALA LI
--- OUTSIDE RECORDS SUMMARY | 2022-12-13 21:29 | XMS_ITS | Continuity of Care Document ---
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 by RN 10Admin Note: Admin. by RN 11Admin Note: Admin. 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 USE... Start Date: 11/13/20 Status: Ordered albuterol 0.083% inhalation solution 3 mL = 2.5 mg, Inhalation, Every 6 hours, PRN Wheezing/Shortness of Breath, # 60 each, 0 Refills, Maintenance, 06/07/20 12:51:00 EDT, Solution, [facility] #[id number], 162.56, cm, 05/23/20 14:31:00 EDT, Height, 77, [...] tablet, 12 Refills, Maintenance, 04/17/22 7:54:00 EST, [facility] #15753, 1 tablet By Mouth Daily, 162.56, cm, 04/16/22 16:00:00 EST, Height, 87.6, kg, 10/24/21 8:00:00 EDT, Dry Weight Start Date: 04/17/22 Status: Ordered Biktarvy oral tablet See Instructions, TAKE 1 TABLET BY MOUTH DAILY, # 90 tablet, 0 Refills, Maintenance, 07/15/22 13:50:00 EDT, [facility] #[id number], 90, TAKE 1 TABLET BY MOUTH DAILY, [...] 1 Refills, Maintenance, 07/10/21 18:35:00 EDT, Tablet, [facility] #09551, Partial fill upon patient request if the prescription is for a schedule II opioid drug., 162, cm, 06/19/21 15:40:00 EDT... Start Date: 07/10/21 Status: Ordered cloNIDine 0.1 mg oral tablet 1, tablet, By Mouth, 3 times a day, PRN, # 270 tablet, Refills 0, Tot. Refills 0, Maintenance, NEEDED FOR ANXIETY, 05/13/22 16:45:00 EDT, Route to Pharmacy Electronically, [facility] #[id number], 162.56, cm, 05/07/22 12:32:00 EST, Height, 87.6... Start Date: 05/13/22 Status: Ordered Colace Clear 50 mg oral capsule 1 capsule = 50 mg, By Mouth, 2 times a day, PRN as needed for constipation, # 60 capsule, 0 Refills, Maintenance, 12/05/21 15:09:00 EDT, [facility] #43877, Partial fill upon patient requestif the prescription is for a schedule II opioid nhi... Start Date: 12/05/21 Status: Ordered diclofenac 1% topical gel = 2 Gm, Topically, 4 times a day, PRN for pain, not to exceed: 10 gm/day, # 100 Gm, 1 Refills, Maintenance, 05/29/21 16:52:00 EDT, Gel, [facility], Partial fill upon patient request if the prescription is for a schedule II opioid... Start Date: 05/29/21 Status: Ordered Dulera 200 mcg-5 mcg/inh inhalation aerosol 2 puffs, Inhalation, 2 times a day, # 1 each, 3 Refills, Maintenance, 01/28/21 16:44:00 EST, Aerosol, [facility], STOP FLOVENT, 2 puffs Inhalation 2 times a day,x30 days, 162, cm,01/28/21 16:02:00 EST, Height, 86.3, kg, 09/29/20 1... Start Date: 01/28/21 Stop Date: 05/28/21 Status: Ordered escitalopram 10 mg oral tablet 1 tablet = 10 mg, By Mouth, Daily, # 30 tablet, 11 Refills, Maintenance, 04/16/22 16:59:00 EST, Tablet, [facility] #[id number], Partial fill upon patient request if the [...] Gm, 5 Refills, Maintenance, 07/19/19 15:19:00 EDT, [place], [facility] #[id number], 2 sprays Nares, Both Daily in AM,x30 [...] Replace Required Details, Route to Pharmacy Electronically, [facility] #[id number], 162.56, cm,... Start Date: 11/27/21 Status: Ordered [...] covering for [facility] Blood pressure monitor neededto monitor blood pressure DX: hypertension, 07/11/18 17:28:42 EDT, Compound Start Date: 07/11/18 Status: Ordered humidifier humidifier, See Instructions, # 1 each, Refills 0, Tot. Refills 0, Maintenance, use as directed forchronic sinusitis J32, 04/09/17 14:21:37 EST, Compound Start Date: 04/09/17 Status: Ordered lactulose 10 gm/15 ml oral syrup 30 mL = 20 Gm, By Mouth, 2 times a day, # 1,800 mL, 2 Refills, Maintenance, 06/25/22 18:17:00 EDT, Syrup, [facility] #[id number], 30 mL By Mouth 2 times a day, 162.56, cm, 06/25/22 16:16:00 EDT,Height, 87.6, kg, 10/24/21 8:00:00 EDT, Dry Weight Start Date: 06/25/22 Status: Ordered losartan 100 mg oral tablet 1 tablet, By Mouth, Daily, # 30 tablet, 5 Refills, [facility] #[id number], 162, cm, 10/09/21 16:19:00 EDT, Height, 86.3, kg, 09/29/20 15:30:00 EDT, Dry Weight Start Date: 10/20/21 Status: Ordered meclizine 25 mg oral tablet 1 tablet = 25 mg, By Mouth, 2 times a day, # 30 tablet, 1 Refills, Maintenance, 07/10/21 17:25:00 EDT, Tablet, [facility] #78282, 162, cm, 06/19/21 15:40:00 EDT, Height, 86.3, kg, 09/29/20 15:30:00 EDT, Dry Weight Start Date: 07/10/21 Status: Ordered multivitamin with iron Multiple Vitamins with Iron oral tablet 1 tablet, By Mouth, Daily, # 30 tablet, 11 Refills, Maintenance, 04/17/22 7:51:00 EST, Tablet, [facility] #[id number], 1 tablet By Mouth Daily, 162.56, cm, 04/16/22 16:00:00 EST, Height, 87.6, kg, 10/24/21 8:00:00 EDT, Dry Weight Start Date: 04/17/22 Status: Ordered Narcan 4 mg/0.1 mL nasal spray = 4 mg, Inhalation, Once, # 2 each, 1 Refills, Soft Stop, 10/29/20 12:23:00 EDT, [facility] #[id number], Partial fill upon patient request if the prescription is for a schedule II opioid drug., 162, cm, 09/29/20 15:30:00 EDT, Height, 86.3, kg, 08... Start Date: 10/29/20 Status: Ordered ondansetron 4 mg oral tablet 1 tablet = 4 mg, By Mouth, Daily, PRN Nausea & Vomiting, # 10 tablet, 3 Refills, Maintenance, 06/25/22 17:28:00 EDT, [facility] #[id number], 162.56, cm, 06/25/22 16:16:00 EDT, Height, 87.6, [...] each, 0 Refills, Maintenance, 06/04/20 16:46:00 EDT, [facility] #[id number], OK to sub for any gallon prep, used as directed, 162.56, cm, 05/23/20 14:31:00 EDT, Height, 77, kg, 03/21/20 15:04:00 EST, Dry We... Start Date: 06/04/20 Status: Ordered Senna 8.6 mg oral tablet 1-3 tablet, By Mouth, Daily, for constipation, # 90 tablet, Refills 5, Tot. Refills 5, Maintenance,03/26/20 15:25:00 EST, Route to Pharmacy Electronically, [facility] #[id number] Tablet, 162.56, cm, 03/21/20 15:01:00 EST, Height, [...] tablet, 5 Refills, Maintenance, 04/17/22 7:53:00 EST, [facility] #[id number], 162.56, cm, 04/16/22 16:00:00 EST, Height, 87.6, kg, 10/24/21 8:00:00 EDT, Dry Weight Start Date: 04/17/22 Status: Ordered Suboxone 8 mg-2 mg Sublingual Film 2 film, Sublingual, Daily, [id number] [place] dissolve under the tongue may fill less due 07/13/2022,# 14 film, 0 Refills, Maintenance, 07/07/22 17:39:00 EDT, Film, [facility], 2 film Sublingual Daily,x7 days,Instr:[id number] Cathy... Start Date: 07/07/22 Stop Date: 07/14/22 Status: Ordered SUMAtriptan 25 mg oral tablet 1 tablet = 25 mg, By Mouth, Daily, PRN as needed for migraine headache, may repeat dose after 2 hours up to a maximum of 2, # 6 tablet, 1 Refills, Maintenance, 03/02/20 19:47:00 EST, Tablet, [facility] #[id number], 162.56, cm, 01/04/20 9:40:00 ES... Start Date: 03/02/20 Status: Ordered zolpidem 5 mg oral tablet 1 tablet = 5 mg, By Mouth, Daily at bedtime, PRN as needed for sleep, # 30 tablet, 1 Refills, Maintenance, 06/18/22 18:17:00 EDT, [facility] #[id number], 162.56, cm, 05/07/22 12:32:00 EST, Height, 87.6, kg, 10/24/21 8:00:00 EDT, Dry Weight Start Date: 06/18/22 Status: Ordered Problem List Condition Confirmation Course [...] deficiency anemia Confirmed Active Migraine Confirmed Active Opioid use disorder Confirmed Active Opioid dependence Confirmed Active *[id number] Secy April Saavedra Confirmed Active Health care maintenance [...] tolerance, and QD need over. 2genotype 02/02: [id number] is only mutation detected 3death of sister, caring for mother w/ dementia 4repeat screening colonoscopy in 2020 Social History Social History Type Response Smoking Status Former smoker, quit more than 30 days ago entered on: 12/05/21 Sex Patient Care team information Care Team Personnel Name: Kahlil Sun MD Position: [facility] Primary Care Physician Member Role: PCP Address: Address: [address] [place] [address] Name: Sharri Prince Position: [facility] PCO Associate Professional Member Role: Lifetime Consulting Provider Care Team Related Persons Name: SHANITA MENDOZA Address: home [address] [place] [address] Name: SHANITA MENDOZA Address: home [address] Name: ULICES PEARSON Name: ULICES ESPARZA Address: [place] [address] Name: LALA LI
--- OUTSIDE RECORDS SUMMARY | 2022-12-13 21:29 | XMS_ITS | Continuity of Care Document ---
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 Name Role Phone Dino PEREZ, Kahlil Barrera Primary Care Physician [facility]counter [facility] Date(s): 01/31/20 - 03/01/20 [facility] De Annabelle [address] [place] [id number]- Allergies, Adverse Reactions, Alerts Substance Reaction Severity [...] tetanus-diphtheria toxoids (Td) 03/10/01 Given 1Result Comment: count includes the [facility] 2Result Comment: pharmacy 3Location History: [facility] 4Admin Note: vis 08/31/11 5Admin Note: ADMIN.BY [...] tablet, 5 Refills, Maintenance, 01/26/20 16:20:00 EST, [facility], 162.56, cm, 10/09/19 10:36:00 EDT, Height, 72.3, kg, 09/26/18 16:01:00 EDT, Dry Weight Start Date: 01/26/20 Stop Date: 02/25/20 Status: Ordered albuterol 0.083% inhalation solution 3 mL = 2.5 mg, Inhalation, Every 6 hours, PRN Wheezing/Shortness of Breath, # 60 each, 0 Refills, Maintenance, 06/07/19 14:59:00 EDT, Solution, [facility] #[id number], 162.56, cm, 05/03/19 16:30:00 EST, Height, 72.3, kg, 09/26/18 16:01:00 EDT, Start Date: 06/07/19 Status: Ordered Biktarvy oral tablet 1 tablet, By Mouth, Daily, # 30 tablet, 11 Refills, Maintenance, 06/29/19 16:26:00 EDT, [facility] #[id number], 1 tablet By Mouth Daily, 162.56, cm, 05/03/19 16:30:00 EST, Height, 72.3, kg, 09/26/18 16:01:00 EDT, Dry Weight Start Date: 06/29/19 Status: Ordered Blood Pressure Meter Blood Pressure Meter, See Instructions, # 1 each, Refills 0, Tot. Refills 0, Maintenance, Use for, 07/11/18 16:11:47 EDT, Compound Start Date: 07/11/18 Status: Ordered buprenorphine-naloxone 2 mg-0.5 mg sublingual film 1 film, Sublingual, Daily, [place] [id number], # 14 film, 0 Refills, Maintenance, 02/08/20 16:47:00 EST, [facility] #[id number], Partial fill on request., 1 film Sublingual Daily,Instr:[place] [id number], 162.56, cm, 01/04/20 9:40:00 EST, Height, 7... Start Date: 02/08/20 Status: Ordered buprenorphine-naloxone 2 mg-0.5 mg sublingual film 0.25 each, Sublingual, Daily, Dino [id number], # 8 film, 0 Refills, Maintenance, 12/15/19 19:00:00 EDT, [facility] #[id number], Partial fill on request., 0.25 each Sublingual Daily,Instr:Dino [id number], 162.56, cm, 10/09/19 10:36:00 EDT, Hei... Start Date: 12/15/19 Status: Ordered cetirizine 10 mg oral tablet 1 tablet = 10 mg, By Mouth, Daily, For allergies., # 30 tablet, 2 Refills, Maintenance, 06/29/19 16:02:00 EDT, Tablet, [facility] #[id number], 162.56, cm, 05/03/19 16:30:00 EST, Height, 72.3, kg, 09/26/18 16:01:00 EDT, Dry Weight Start Date: 06/29/19 Status: Ordered cloNIDine 0.1 mg oral tablet 0.1 mg, 1, tablet, By Mouth, 3 times a day, as needed for anxiety, # 25 tablet, Refills 0, Tot. Refills 0, Maintenance, 10/10/19 21:36:00 EDT, Route to Pharmacy Electronically, [facility] #[id number], 162.56, cm, 10/09/19 10:36:00 EDT, Height, 72... [...] Gm, 5 Refills, Maintenance, 07/19/19 15:19:00 EDT, [place], [facility] #[id number], 2 sprays Nares, Both Daily in AM,x30 days, 162.56, cm, 05/03/19 16:30:00 EST, Height, 72.3, kg, 09/26/18 16:01:00 EDT, Dry... Start Date: 07/19/19 Stop Date: 01/15/20 Status: Ordered Flovent HFA 44 mcg/inh inhalation aerosol 1 puffs, Inhalation, 2 times a day, # 1 each, 5 Refills, Maintenance, 06/29/19 16:26:00 EDT, Aerosol, [facility] #[id number], 162.56, cm, 05/03/19 16:30:00 EST, Height, 72.3, [...] Instructions, # 1 each, Maintenance, covering for [facility] Blood pressure monitor neededto monitor blood [...] 5 Refills, Maintenance, 09/11/19 10:29:00 EDT, Tablet, [facility] #[id number], 30 day supply preferred for present, 162.56, [...] 05/12/18 14:45:33 EDT, Route to Pharmacy Electronically, [id number], [facility] Start Date: 05/12/18 Status: Ordered LORazepam 0.5 mg oral tablet 0.5 tablet = 0.25 mg, By Mouth, 2 times a day, PRN as needed for anxiety, # 20 tablet, 1 Refills, Maintenance, 05/16/19 23:11:00 EDT, Tablet, [facility] #07294, 162.56, cm, 05/03/19 16:30:00 EST, Height, 72.3, kg, 09/26/18 16:01:00 EDT, Dry... Start Date: 05/16/19 Status: Ordered losartan 100 mg oral tablet 1 tablet = 100 mg, By Mouth, Daily, # 30 tablet, 11 Refills, Maintenance, 06/29/19 15:59:00 EDT, Tablet, [facility] #[id number], 162.56, cm, 05/03/19 16:30:00 EST, Height, 72.3, kg, 09/26/18 16:01:00 EDT, Dry Weight Start Date: 06/29/19 Status: Ordered meclizine 25 mg oral tablet 1 tablet = 25 mg, By Mouth, 2 times a day, # 30 tablet, 1 Refills, Maintenance, 03/30/19 15:49:00 EST, Tablet, [facility] #[id number], 162.56, cm, 03/08/19 14:34:00 EST, Height, 72.3, [...] 15:00:00 EDT, Aerosol, Route to Pharmacy Electronically, [id number], [facility] #[id number], 1... Start Date: 06/07/19 Status: Ordered Senna 8.6 mg oral tablet 1-3 tablet, By Mouth, Daily, for constipation, # 90 tablet, Refills 5, Tot. Refills 5, Maintenance,02/17/18 15:12:45 EST, Route to Pharmacy Electronically, [id number], [facility] Tablet Start Date: 02/17/18 Status: Ordered Spacer for inhalers Spacer for inhalers, See Instructions, # 1 each, Refills 0, Tot. Refills 0, Maintenance, Use with inhalers as directed. Gabonese., 06/07/19 15:07:00 EDT, Compound, 162.56, cm, 05/03/19 16:30:00 EST, Height, 72.3, kg, 09/26/18 16:01:00 EDT, Dry Weight Start Date: 06/07/19 Status: Ordered SUMAtriptan 25 mg oral tablet 1 tablet = 25 mg, By Mouth, Daily, PRN as needed for migraine headache, may repeat dose after 2 hours up to a maximum of 2, # 6 tablet, 1 Refills, Maintenance, 04/18/19 13:31:00 EST, Tablet, [facility] #[id number], 162.56, cm, 03/08/19 14:34:00 E... Start Date: 04/18/19 Status: Ordered Zofran 4 mg oral tablet 1 tablet = 4 mg, By Mouth, 2 times a day, PRN Nausea & Vomiting, # 10 tablet, 0 Refills, Maintenance, 01/15/20 10:22:00 EST, Tablet, [facility], 162.56, cm, 01/04/20 9:40:00 EST, Height, 72.3, kg, 09/26/18 16:01:00 EDT, Dry Weight Start Date: 01/15/20 Status: Ordered zolpidem 5 mg oral tablet 0 Refills, Maintenance, 01/22/18 21:33:47 EST Start Date: 01/22/18 Status: Ordered Problem List Condition Effective Dates Status Health Status Inform ant Abdominal bloating(Confirmed) Active Acne(Confirmed) Active AIDS (acquired immunodeficie ncy syndrome). ART hx in 01/19/18 note.(Confirmed) , 2 1994 Active Ascites(Confirmed) Active [...] 2016 Active Migraine(Confirmed) Active Opioid dependence(Confirmed) Active *[id number] Care Partn renee Saavedra(Confirmed) Active Health care [...] tolerance, and QD need over. 2genotype 02/02: [id number] is only mutation detected 3death of sister, caring for mother w/ dementia 4repeat screening colonoscopy in 2020 Social History Social History Type Response Smoking Status Former smoker, quit more than 30 days ago entered on: 05/24/18 Sex
--- OUTSIDE RECORDS SUMMARY | 2022-12-13 21:29 | XMS_ITS | Continuity of Care Document ---
Author Name Unknown Organization [facility] Address [address] [place] [address]- Care Team Providers Care Deliverer Merchandise Name Role Phone Kahlil Sun MD Primary Care Physician [phone] Encounter [facility] Date(s): 04/22/20 - 05/22/20 [facility] [address] [place] [address]- Allergies, Adverse Reactions, Alerts Substance Reaction Severity [...] tetanus-diphtheria toxoids (Td) 03/10/01 Given 1Result Comment: [facility] 2Result Comment: pharmacy 3Location History: [facility] 4Admin [...] 5 Refills, Maintenance, 01/26/20 16:20:00 EST, [facility], 162.56, cm, 10/09/19 10:36:00 EDT, Height, 72.3, kg, 09/26/18 16:01:00 EDT, Dry Weight Start Date: 01/26/20 Stop Date: 02/25/20 Status: Ordered albuterol 0.083% inhalation solution 3 mL = 2.5 mg, Inhalation, Every 6 hours, PRN Wheezing/Shortness of Breath, # 60 each, 0 Refills, Maintenance, 06/07/19 14:59:00 EDT, Solution, [facility] #[id number], 162.56, cm, 05/03/19 16:30:00 EST, Height, 72.3, kg, 09/26/18 16:01:00 EDT, Start Date: 06/07/19 Status: Ordered Biktarvy oral tablet 1 tablet, By Mouth, Daily, # 90 tablet, 3 Refills, Maintenance, 03/02/20 19:50:00 EST, [facility] #[id number], 1 tablet By Mouth Daily, 162.56, cm, 01/04/20 9:40:00 EST, Height, 72.3, kg, 09/26/18 16:01:00 EDT, Dry Weight Start Date: 03/02/20 Status: Ordered Blood Pressure Meter Blood Pressure Meter, See Instructions, # 1 each, Refills 0, Tot. Refills 0, Maintenance, Use for, 07/11/18 16:11:47 EDT, Compound Start Date: 07/11/18 Status: Ordered buprenorphine-naloxone 2 mg-0.5 mg sublingual film 1 film, Sublingual, Daily, [place] [id number] covering for Dino [id number], # 14 film, 0 Refills, Maintenance, 04/26/20 9:47:00 EST, [facility] #[id number], Partial fill on request., 1 film Sublingual Daily,Instr:[place]av[place] [id number] covering for... Start Date: 04/26/20 Status: Ordered buprenorphine-naloxone 2 mg-0.5 mg sublingual film 0.25 each, Sublingual, Daily, [place] [id number], # 8 film, 0 Refills, Maintenance, 12/15/19 19:00:00 EDT, [facility] #[id number], Partial fill on request., 0.25 each Sublingual Daily,Instr:Dino [id number], 162.56, cm, 10/09/19 10:36:00 EDT, Hei... Start Date: 12/15/19 Status: Ordered cetirizine 10 mg oral tablet 1 tablet = 10 mg, By Mouth, Daily, For allergies., # 30 tablet, 2 Refills, Maintenance, 06/29/19 16:02:00 EDT, Tablet, [facility] #[id number], 162.56, cm, 05/03/19 16:30:00 EST, Height, 72.3, kg, 09/26/18 16:01:00 EDT, Dry Weight Start Date: 06/29/19 Status: Ordered cloNIDine 0.1 mg oral tablet 0.1 mg, 1, tablet, By Mouth, 3 times a day, as needed for anxiety, # 25 tablet, Refills 0, Tot. Refills 0, Maintenance, 10/10/19 21:36:00 EDT, Route to Pharmacy Electronically, [facility] #[id number], 162.56, cm, 10/09/19 10:36:00 EDT, Height, 72... [...] Gm, 5 Refills, Maintenance, 07/19/19 15:19:00 EDT, [place], [facility] #[id number], 2 sprays Nares, Both Daily in AM,x30 days, 162.56, cm, 05/03/19 16:30:00 EST, Height, 72.3, kg, 09/26/18 16:01:00 EDT, Dry... Start Date: 07/19/19 Stop Date: 01/15/20 Status: Ordered Flovent HFA 44 mcg/inh inhalation aerosol 1 puffs, Inhalation, 2 times a day, # 1 each, 5 Refills, Maintenance, 06/29/19 16:26:00 EDT, Aerosol, [facility] #[id number], 162.56, cm, 05/03/19 16:30:00 EST, Height, 72.3, [...] Instructions, # 1 each, Maintenance, covering for [facility] Blood pressure monitor neededto monitor [...] 3 Refills, Maintenance, 03/02/20 19:48:00 EST, Tablet, [facility] #[id number], 30 day supply preferred for present, 162.56, [...] 05/12/18 14:45:33 EDT, Route to Pharmacy Electronically, [id number], [facility] Start Date: 05/12/18 Status: Ordered LORazepam 0.5 mg oral tablet 0.5 tablet = 0.25 mg, By Mouth, 2 times a day, PRN as needed for anxiety, # 20 tablet, 1 Refills, Maintenance, 05/16/19 23:11:00 EDT, Tablet, [facility] #[id number], 162.56, cm, 05/03/19 16:30:00 EST, Height, 72.3, kg, 09/26/18 16:01:00 EDT, Dry... Start Date: 05/16/19 Status: Ordered losartan 100 mg oral tablet 1 tablet = 100 mg, By Mouth, Daily, # 30 tablet, 11 Refills, Maintenance, 06/29/19 15:59:00 EDT, Tablet, [facility] #[id number], 162.56, cm, 05/03/19 16:30:00 EST, Height, 72.3, kg, 09/26/18 16:01:00 EDT, Dry Weight Start Date: 06/29/19 Status: Ordered meclizine 25 mg oral tablet 1 tablet = 25 mg, By Mouth, 2 times a day, # 30 tablet, 1 Refills, Maintenance, 03/30/19 15:49:00 EST, Tablet, [facility] #58135, 162.56, cm, 03/08/19 14:34:00 EST, Height, 72.3, [...] 15:00:00 EDT, Aerosol, Route to Pharmacy Electronically, [id number], [facility] #[id number], 1... Start Date: 06/07/19 Status: Ordered Senna 8.6 mg oral tablet 1-3 tablet, By Mouth, Daily, for constipation, # 90 tablet, Refills 5, Tot. Refills 5, Maintenance,03/26/20 15:25:00 EST, Route to Pharmacy Electronically, [facility] #[id number] Tablet, 162.56, cm, 03/21/20 15:01:00 EST, Height, 77, kg, 2... Start Date: 03/26/20 Status: Ordered Spacer for inhalers Spacer for inhalers, See Instructions, # 1 each, Refills 0, Tot. Refills 0, Maintenance, Use with inhalers as directed. Bahamian., 06/07/19 15:07:00 EDT, Compound, 162.56, cm, 05/03/19 16:30:00 EST, Height, 72.3, kg, 09/26/18 16:01:00 EDT, Dry Weight Start Date: 06/07/19 Status: Ordered SUMAtriptan 25 mg oral tablet 1 tablet = 25 mg, By Mouth, Daily, PRN as needed for migraine headache, may repeat dose after 2 hours up to a maximum of 2, # 6 tablet, 1 Refills, Maintenance, 03/02/20 19:47:00 EST, Tablet, [facility] #[id number], 162.56, cm, 01/04/20 9:40:00 ES... Start Date: 03/02/20 Status: Ordered Zofran 4 mg oral tablet 1 tablet = 4 mg, By Mouth, 2 times a day, PRN Nausea & Vomiting, # 10 tablet, 0 Refills, Maintenance, 05/04/20 17:09:00 EST, Tablet, [facility] #[id number], 162.56, cm, 05/03/20 9:23:00 EST,Height, 77, kg, [...] 2016 Active Migraine(Confirmed) Active Opioid dependence(Confirmed) Active *[id number] Care Partn April Saavedra(Confirmed) Active Health care [...] tolerance, and QD need over. 2genotype 02/02: [id number] is only mutation detected 3death of sister, caring for mother w/ dementia 4repeat screening colonoscopy in 2020 Social History Social History Type Response Smoking Status Former smoker, quit more than 30 days ago entered on: 05/24/18 Sex
--- OUTSIDE RECORDS SUMMARY | 2022-12-13 21:29 | XMS_ITS | Continuity of Care Document ---
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 3Rd Shift Name Role Phone Kahlil Sun MD Primary Care Physician Encounter [facility] Date(s): 06/08/20 - 06/15/20 [facility] [address] [place] [address]- Attending Physician: Amita Ballard MD Referring Physician: Kahlil Sun MD Allergies, [...] 03/10/01 Given 1Result Comment: #2, [facility] 2Result Comment: [facility] 3Result Comment: [facility] 4Result Comment: pharmacy 5Location History: [facility] 6Admin [...] 5 Refills, Maintenance, 01/26/20 16:20:00 EST, [facility], 162.56, cm, 10/09/19 10:36:00 EDT, Height, 72.3, kg, 09/26/18 16:01:00 EDT, Dry Weight Start Date: 01/26/20 Stop Date: 02/25/20 Status: Ordered albuterol 0.083% inhalation solution 3 mL = 2.5 mg, Inhalation, Every 6 hours, PRN Wheezing/Shortness of Breath, # 60 each, 0 Refills, Maintenance, 06/07/20 12:51:00 EDT, Solution, [facility] #[id number], 162.56, cm, 05/23/20 14:31:00 EDT, Height, 77, [...] tablet, 3 Refills, Maintenance, 03/02/20 19:50:00 EST, [facility] #[id number], 1 tablet By Mouth Daily, 162.56, cm, 01/04/20 9:40:00 EST, Height, 72.3, kg, 09/26/18 16:01:00 EDT, Dry Weight Start Date: 03/02/20 Status: Ordered Blood Pressure Meter Blood Pressure Meter, See Instructions, # 1 each, Refills 0, Tot. Refills 0, Maintenance, Use for, 07/11/18 16:11:47 EDT, Compound Start Date: 07/11/18 Status: Ordered buprenorphine-naloxone 2 mg-0.5 mg sublingual film 1 film, Sublingual, Daily, [place] [id number] covering for [place] [id number], # 14 film, 0 Refills, Maintenance, 04/26/20 9:47:00 EST, [facility] #[id number], Partial fill on request., 1 film Sublingual Daily,Instr:Scavron [id number] covering for... Start Date: 04/26/20 Status: Ordered buprenorphine-naloxone 2 mg-0.5 mg sublingual film 0.25 each, Sublingual, Daily, Dino [id number], # 8 film, 0 Refills, Maintenance, 12/15/19 19:00:00 EDT, [facility] #[id number], Partial fill on request., 0.25 each Sublingual Daily,Instr:Johnson [id number], 162.56, cm, 10/09/19 10:36:00 EDT, Hei... Start Date: 12/15/19 Status: Ordered cetirizine 10 mg oral tablet 1 tablet = 10 mg, By Mouth, Daily, For allergies., # 30 tablet, 2 Refills, Maintenance, 06/29/19 16:02:00 EDT, Tablet, [facility] #[id number], 162.56, cm, 05/03/19 16:30:00 EST, Height, 72.3, kg, 09/26/18 16:01:00 EDT, Dry Weight Start Date: 06/29/19 Status: Ordered cloNIDine 0.1 mg oral tablet 0.1 mg, 1, tablet, By Mouth, 3 times a day, as needed for anxiety, # 25 tablet, Refills 0, Tot. Refills 0, Maintenance, 10/10/19 21:36:00 EDT, Route to Pharmacy Electronically, [facility] #[id number], 162.56, cm, 10/09/19 10:36:00 EDT, Height, 72... [...] Gm, 5 Refills, Maintenance, 07/19/19 15:19:00 EDT, [place], [facility] #[id number], 2 sprays Nares, Both Daily in AM,x30 days, 162.56, cm, 05/03/19 16:30:00 EST, Height, 72.3, kg, 09/26/18 16:01:00 EDT, Dry... Start Date: 07/19/19 Stop Date: 01/15/20 Status: Ordered Flovent HFA 44 mcg/inh inhalation aerosol 1 puffs, Inhalation, 2 times a day, # 1 each, 5 Refills, Maintenance, 06/07/20 12:52:00 EDT, Aerosol, [facility] #[id number], 162.56, cm, 05/23/20 14:31:00 EDT, Height, 77, kg, 03/21/20 15:04:00EST, Dry Weight Start Date: 06/07/20 Status: Ordered Freestyle Lite Lancets See Instructions, # 50 each, Refills 2, Tot. Refills 2, Maintenance, every 30 min for 4 hours afterselected meals . Dx: E16.1 - hypoglycemia, R73.9 - Hyperglycemia, 06/12/20 17:56:00 EDT, Compound, 163, cm, 06/08/20 17:25:00 EDT, Height, 82.1, kg, 04... Start Date: 06/12/20 Stop Date: 09/10/20 Status: [...] each, Refills 2, Tot. Refills 2, Maintenance, every 30 min for 4 hours afterselected meals . Dx: E16.1 - hypoglycemia, R73.9 - Hyperglycemia, 06/12/20 17:54:00 EDT, Compound, 163, cm, 06/08/20 17:25:00 EDT, Height, 82.1, kg, 04... Start Date: 06/12/20 Status: Ordered gabapentin 300 mg oral capsule [...] 0, Maintenance, diabetes mellitus 2, Freestyle Lite. Dx: E16.1 - hypoglycemia, R73.9 - Hyperglycemia, diabetes m 2, 06/12/20 17:54:00 EDT, Compound, 163, cm, 06/08/20 17:25:00 EDT, Height, 82.1,... Start Date: 06/12/20 Status: Ordered Home Blood Pressure Monitor See Instructions, # 1 each, Maintenance, covering for [facility] Blood pressure monitor neededto monitor blood [...] 3 Refills, Maintenance, 03/02/20 19:48:00 EST, Tablet, [facility] #[id number], 30 day supply preferred for present, 162.56, [...] 05/12/18 14:45:33 EDT, Route to Pharmacy Electronically, [id number], [facility] Start Date: 05/12/18 Status: Ordered LORazepam 0.5 mg oral tablet 0.5 tablet = 0.25 mg, By Mouth, 2 times a day, PRN as needed for anxiety, # 20 tablet, 1 Refills, Maintenance, 05/16/19 23:11:00 EDT, Tablet, [facility] #[id number], 162.56, cm, 05/03/19 16:30:00 EST, Height, 72.3, kg, 09/26/18 16:01:00 EDT, Dry... Start Date: 05/16/19 Status: Ordered losartan 100 mg oral tablet 1 tablet = 100 mg, By Mouth, Daily, # 30 tablet, 11 Refills, Maintenance, 06/29/19 15:59:00 EDT, Tablet, [facility] #[id number], 162.56, cm, 05/03/19 16:30:00 EST, Height, 72.3, kg, 09/26/18 16:01:00 EDT, Dry Weight Start Date: 06/29/19 Status: Ordered meclizine 25 mg oral tablet 1 tablet = 25 mg, By Mouth, 2 times a day, # 30 tablet, 1 Refills, Maintenance, 03/30/19 15:49:00 EST, Tablet, [facility] #[id number], 162.56, cm, 03/08/19 14:34:00 EST, Height, 72.3, [...] each, 0 Refills, Maintenance, 06/04/20 16:46:00 EDT, [facility] #01229, OK to sub for any gallon prep, [...] 12:51:00 EDT, Aerosol, Route to Pharmacy Electronically, [id number], [facility] #[id number], 1... Start Date: 06/07/20 Status: Ordered Senna 8.6 mg oral tablet 1-3 tablet, By Mouth, Daily, for constipation, # 90 tablet, Refills 5, Tot. Refills 5, Maintenance,03/26/20 15:25:00 EST, Route to Pharmacy Electronically, [facility] #[id number] Tablet, 162.56, cm, 03/21/20 15:01:00 EST, Height, 77, kg, 2... Start Date: 03/26/20 Status: Ordered Spacer for inhalers Spacer for inhalers, See Instructions, # 1 each, Refills 0, Tot. Refills 0, Maintenance, Use with inhalers as directed. Argentine., 06/07/19 15:07:00 EDT, Compound, 162.56, cm, 05/03/19 16:30:00 EST, Height, 72.3, kg, 09/26/18 16:01:00 EDT, Dry Weight Start Date: 06/07/19 Status: Ordered SUMAtriptan 25 mg oral tablet 1 tablet = 25 mg, By Mouth, Daily, PRN as needed for migraine headache, may repeat dose after 2 hours up to a maximum of 2, # 6 tablet, 1 Refills, Maintenance, 03/02/20 19:47:00 EST, Tablet, [facility] #[id number], 162.56, cm, 01/04/20 9:40:00 ES... Start Date: 03/02/20 Status: Ordered Zofran 4 mg oral tablet 1 tablet = 4 mg, By Mouth, 2 times a day, PRN Nausea & Vomiting, # 10 tablet, 0 Refills, Maintenance, 05/04/20 17:09:00 EST, Tablet, [facility] #57347, 162.56, cm, 05/03/20 9:23:00 EST,Height, 77, kg, [...] 2016 Active Migraine(Confirmed) Active Opioid dependence(Confirmed) Active *[id number] Care Partn er April Saavedra(Confirmed) Active Health [...] tolerance, and QD need over. 2genotype 02/02: [id number] is only mutation detected 3death of sister, caring for mother w/ dementia 4repeat screening colonoscopy in 2020 Social History Social History Type Response Smoking Status Former smoker, quit more than 30 days ago entered on: 05/24/18 Sex
--- OUTSIDE RECORDS SUMMARY | 2022-12-13 21:29 | XMS_ITS | Continuity of Care Document ---
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 2Result Comment: #2, [facility] 3Result Comment: [facility] 4Result Comment: pharmacy 5Location History: [facility] 6Admin Note: vis 08/31/11 7Admin Note: ADMIN.BY RN 8Result Comment: [facility] 9Admin Note: Admin. by RN 10Admin Note: Admin. by RN 11Admin Note: Admin. by RN 12Admin Note: vis 06/15/15 13Admin Note: dose #6 (3rd in 2nd series) 14Admin Note: dose #5 15Admin Note: #3 16Admin Note: LITO san[employer]i-[employer]ur 17Admin Note: ADMIN BEN, MANAGER GENERAL 18Admin Note: BY LEXI Agudelo 19Admin Note: [...] 5 Refills, Maintenance, 12/05/21 14:43:00EDT, CR Tablet, [facility] #[id number], Partial fill upon patient request if the prescription is for a schedule II opioid drug., 162.56, cm, 12/05... Start Date: 12/05/21 Status: Ordered acyclovir 400 mg oral tablet 1 tablet = 400 mg, By Mouth, 2 times a day, # 10 tablet, 5 Refills, Maintenance, 01/08/21 18:41:00 EST, [facility] #[id number], 162, cm, 12/17/20 23:19:00 EDT, Height, 86.3, kg, 09/29/20 15:30:00 EDT, Dry Weight Start Date: 01/08/21 Stop Date: 02/07/21 Status: Ordered Albuterol (Eqv-ProAir HFA) 90 mcg/inh inhalation aerosol 2 puffs, Inhalation, Every 4 hours, PRN NEEDED FOR WHEEZING/SHORTNESS OF BREATH, USE WITH SPACERCHAMBER, # 8.5 Gm, 5 Refills, [facility] #[id number], 16, INHALE 2 PUFFS INTO LUNGS EVERY 4 HOURS NEEDED FOR WHEEZING/SHORTNESS OF BREATH. USE... Start Date: 11/13/20 Status: Ordered albuterol 0.083% inhalation solution 3 mL = 2.5 mg, Inhalation, Every 6 hours, PRN Wheezing/Shortness of Breath, # 60 each, 0 Refills, Maintenance, 06/07/20 12:51:00 EDT, Solution, [facility] #[id number], 162.56, cm, 05/23/20 14:31:00 EDT, Height, 77, [...] 01/04/22 19:11:00 EST, Route to Pharmacy Electronically, [facility] #[id number], 162.56, cm, 11/0... Start Date: 01/04/22 Status: Ordered Biktarvy oral tablet 1 tablet, By Mouth, Daily, # 90 tablet, 3 Refills, Maintenance, 06/13/21 22:19:00 EDT, [facility] #31934, 1 tablet By Mouth Daily, 162, cm, [...] 1 Refills, Maintenance, 07/10/21 18:35:00 EDT, Tablet, [facility] #[id number], Partial fill upon patient request if the prescription is for a schedule II opioid drug., 162, cm, 06/19/21 15:40:00 EDT... Start Date: 07/10/21 Status: Ordered cloNIDine 0.1 mg oral tablet 1, tablet, By Mouth, 3 times a day, PRN, # 270 tablet, Refills 0, Maintenance, NEEDED FOR ANXIETY, 01/01/22 10:42:00 EDT, Route to Pharmacy Electronically, [facility] #[id number], 162.56, cm,12/05/21 14:12:00 EDT, Height, 87.6, kg, 10/24/21 8... Start Date: 01/01/22 Status: Ordered Colace Clear 50 mg oral capsule 1 capsule = 50 mg, By Mouth, 2 times a day, PRN as needed for constipation, # 60 capsule, 0 Refills, Maintenance, 12/05/21 15:09:00 EDT, [facility] #[id number], Partial fill upon patient requestif the prescription [...] 11 Refills, Maintenance, 07/31/21 17:50:00 EDT, Tablet, [facility] #91022, Partial fill upon patient request if the [...] Gm, 5 Refills, Maintenance, 07/19/19 15:19:00 EDT, [place], [facility] #[id number], 2 sprays Nares, Both Daily in AM,x30 [...] Replace Required Details, Route to Pharmacy Electronically, [facility] #[id number], 162.56, cm,... Start Date: 11/27/21 Status: Ordered [...] # 1 each, Maintenance, [facility] Blood pressure monitor neededto monitor blood pressure DX: hypertension, 07/11/18 17:28:42 EDT, Compound Start Date: 07/11/18 Status: Ordered humidifier humidifier, See Instructions, # 1 each, Refills 0, Tot. Refills 0, Maintenance, use as directed forchronic sinusitis J32, 04/09/17 14:21:37 EST, Compound Start Date: 04/09/17 Status: Ordered losartan 100 mg oral tablet 1 tablet, By Mouth, Daily, # 30 tablet, 5 Refills, [facility] #[id number], 162, cm, 10/09/21 16:19:00 EDT, Height, 86.3, kg, 09/29/20 15:30:00 EDT, Dry Weight Start Date: 10/20/21 Status: Ordered meclizine 25 mg oral tablet 1 tablet = 25 mg, By Mouth, 2 times a day, # 30 tablet, 1 Refills, Maintenance, 07/10/21 17:25:00 EDT, Tablet, [facility] #28642, 162, cm, 06/19/21 15:40:00 EDT, Height, 86.3, kg, 09/29/20 15:30:00 EDT, Dry Weight Start Date: 07/10/21 Status: Ordered multivitamin with iron Multiple Vitamins with Iron oral tablet 1 tablet, By Mouth, Daily, # 30 tablet, 11 Refills, Maintenance, 09/06/21 19:08:00 EDT, Tablet, [facility] #08047, 1 tablet By Mouth Daily, 162, cm, 07/31/21 16:00:00 EDT, Height, 86.3, kg,09/29/20 15:30:00 EDT, Dry Weight Start Date: 09/06/21 Status: Ordered Narcan 4 mg/0.1 mL nasal spray = 4 mg, Inhalation, Once, # 2 each, 1 Refills, Soft Stop, 10/29/20 12:23:00 EDT, [facility] #[id number], Partial fill upon patient request if the prescription is for a schedule II opioid drug., 162, cm, 09/29/20 15:30:00 EDT, Height, 86.3, kg, 08... Start Date: 10/29/20 Status: Ordered ondansetron 4 mg oral tablet 1 tablet = 4 mg, By Mouth, Daily, PRN Nausea & Vomiting, # 10 tablet, 3 Refills, Maintenance, 10/08/21 22:17:00 EDT, [facility] #[id number], 162, cm, 10/09/21 16:19:00 EDT, Height, 86.3, [...] each, 0 Refills, Maintenance, 06/04/20 16:46:00 EDT, [facility] #51993, OK to sub for any gallon prep, used as directed, 162.56, cm, 05/23/20 14:31:00 EDT, Height, 77, kg, 03/21/20 15:04:00 EST, Dry We... Start Date: 06/04/20 Status: Ordered Senna 8.6 mg oral tablet 1-3 tablet, By Mouth, Daily, for constipation, # 90 tablet, Refills 5, Tot. Refills 5, Maintenance,03/26/20 15:25:00 EST, Route to Pharmacy Electronically, [facility] #[id number] Tablet, 162.56, cm, 03/21/20 15:01:00 EST, Height, [...] tablet, 2 Refills, Maintenance, 12/23/21 16:29:00 EDT, [facility] #41173, 162.56, cm, 12/05/21 14:12:00 EDT, Height, 87.6, kg, 10/24/21 8:00:00 EDT, Dry Weight Start Date: 12/23/21 Status: Ordered Suboxone 8 mg-2 mg Sublingual Film 2.5 film, Sublingual, Daily, dissolve under the tongue may fill less due 01/30/2022 Marva [id number] covering for Dr Sun [id number], # 70 film, 0 Refills, Maintenance, 01/30/22 11:01:00 EST, Film, [facility], 2.5 film Subling... Start Date: 01/30/22 Stop Date: 02/27/22 Status: Ordered Suboxone 8 mg-2 mg Sublingual Film 2.5 film, Sublingual, Daily, dissolve under the tongue increase in dose Iveth [id number] coveringfor Dino due on/after 08/22/2021, # 35 film, 0 Refills, Maintenance, 08/22/21 9:27:00 EDT, Film,[facility], 2.5 film Subli... Start Date: 08/22/21 Stop Date: 09/05/21 Status: Ordered SUMAtriptan 25 mg oral tablet 1 tablet = 25 mg, By Mouth, Daily, PRN as needed for migraine headache, may repeat dose after 2 hours up to a maximum of 2, # 6 tablet, 1 Refills, Maintenance, 03/02/20 19:47:00 EST, Tablet, [facility] #[id number], 162.56, cm, 01/04/20 9:40:00 ES... Start Date: 03/02/20 Status: Ordered zolpidem 5 mg oral tablet 1 tablet = 5 mg, By Mouth, Daily at bedtime, PRN as needed for sleep, covering for Dr. Sun, # 30 tablet, 1 Refills, Maintenance, 12/26/21 13:13:00 EDT, [facility] #[id number], 162.56, cm, 12/05/21 14:12:00 EDT, Height, 87.6, kg, 10/24/21 8:00... Start Date: 12/26/21 Status: Ordered Problem List Condition Confirmation Course Effective Dates Status H ealth Status Informant Abdominal bloating Confirmed Active Acne Confirmed Active HIV-AIDS-. ART hx in 01/19/18 note. 1, 2 Confirmed 1995 Active Asthma Confirmed Active Cervicovaginal cytology: Low [...] disorder Confirmed Active Opioid dependence Confirmed Active *[id number] Pharmacy Associate April Saavedra Confirmed Active Health care maintenance [...] tolerance, and QD need over. 2genotype 02/02: [id number] is only mutation detected 3death of sister, caring for mother w/ dementia 4repeat screening colonoscopy in 2020 Social History Social History Type Response Smoking Status Former smoker, quit more than 30 days ago entered on: 12/05/21 Sex Patient Care team information Care Team Personnel Name: Kahlil Sun MD Position: [facility] Primary Care Physician Member Role: PCP Address: Address: [address] [place] [address]- Name: Sharri Prince Position: [facility] PCO Associate Professional Member Role: Lifetime Consulting Provider Care Team Related Persons Name: SHANITA MENDOZA Address: home [address] [place] [address] Name: SHANITA MENDOZA [facility] Address: home [address] Name: ULICES PEARSON Name: ULICES ESPARZA Address: [place] [address] Name: LALA LI
--- OUTSIDE RECORDS SUMMARY | 2022-12-13 21:29 | XMS_ITS | Continuity of Care Document ---
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 #[id number], 162.56, cm, 05/03/19 16:30:00 EST, Height, 72.3, kg, 09/26/18 16:01:00 EDT, Start Date: 06/07/19 Status: Ordered Bactrim 400 mg-80 mg oral tablet 1 tablet, By Mouth, 2 times a day, # 14 tablet, 0 Refills, Acute 12/09/19 15:46:00 EDT, 06/13/19 15:46:00 EDT, Tablet, [facility] #47751, 1 tablet By Mouth 2 times a day, 162.56, cm, 05/03/19 16:30:00 EST, Height, 72.3, kg, 09/26/18 16:01:00... Start Date: 06/13/19 Stop Date: 12/09/19 Status: Ordered Biktarvy oral tablet 1 tablet, By Mouth, Daily, # 30 tablet, 11 Refills, Maintenance, 06/29/19 16:26:00 EDT, [facility] #71753, 1 tablet By Mouth Daily, 162.56, cm, 05/03/19 16:30:00 EST, Height, 72.3, kg, 09/26/18 16:01:00 EDT, Dry Weight Start Date: 06/29/19 Status: Ordered Blood Pressure Meter Blood Pressure Meter, See Instructions, # 1 each, Refills 0, Tot. Refills 0, Maintenance, Use for, 07/11/18 16:11:47 EDT, Compound Start Date: 07/11/18 Status: Ordered buprenorphine-naloxone 2 mg-0.5 mg sublingual film 0.25 each, Sublingual, Daily, Dino [id number], # 4 film, 0 Refills, Maintenance, 07/04/19 17:54:00 EDT, [facility] #05193, Partial fill on request., 0.25 each Sublingual Daily,Instr:Dino [id number], 162.56, cm, 05/03/19 16:30:00 EST, Hei... Start Date: 07/04/19 Status: Ordered cetirizine 10 mg oral tablet 1 tablet = 10 mg, By Mouth, Daily, For allergies., # 30 tablet, 2 Refills, Maintenance, 06/29/19 16:02:00 EDT, Tablet, [facility] #02762, 162.56, cm, 05/03/19 16:30:00 EST, Height, 72.3, [...] Gm, 5 Refills, Maintenance, 07/19/19 15:19:00 EDT, [place], [facility] #26728, 2 sprays Nares, Both Daily in AM,x30 days, 162.56, cm, 05/03/19 16:30:00 EST, Height, 72.3, kg, 09/26/18 16:01:00 EDT, Dry... Start Date: 07/19/19 Stop Date: 01/15/20 Status: Ordered Flovent HFA 44 mcg/inh inhalation aerosol 1 puffs, Inhalation, 2 times a day, # 1 each, 5 Refills, Maintenance, 06/29/19 16:26:00 EDT, Aerosol, [facility] #01950, 162.56, cm, 05/03/19 16:30:00 EST, Height, 72.3, kg, 09/26/18 16:01:00 EDT, Dry Weight Start Date: 06/29/19 Status: Ordered Home Blood Pressure Monitor See Instructions, # 1 each, Maintenance, covering for [facility] Blood pressure monitor neededto [...] 2 Refills, Maintenance, 05/29/19 21:12:00 EDT, Tablet, [facility] #17238, 30 day supply preferred for present, 162.56, [...] 05/12/18 14:45:33 EDT, Route to Pharmacy Electronically, [id number], [facility] Start Date: 05/12/18 Status: Ordered LORazepam 0.5 mg oral tablet 0.5 tablet = 0.25 mg, By Mouth, 2 times a day, PRN as needed for anxiety, # 20 tablet, 1 Refills, Maintenance, 05/16/19 23:11:00 EDT, Tablet, [facility] #19105, 162.56, cm, 05/03/19 16:30:00 EST, Height, 72.3, kg, 09/26/18 16:01:00 EDT, Dry... Start Date: 05/16/19 Status: Ordered losartan 100 mg oral tablet 1 tablet = 100 mg, By Mouth, Daily, # 30 tablet, 11 Refills, Maintenance, 06/29/19 15:59:00 EDT, Tablet, [facility] #73151, 162.56, cm, 05/03/19 16:30:00 EST, Height, 72.3, kg, 09/26/18 16:01:00 EDT, Dry Weight Start Date: 06/29/19 Status: Ordered meclizine 25 mg oral tablet 1 tablet = 25 mg, By Mouth, 2 times a day, # 30 tablet, 1 Refills, Maintenance, 03/30/19 15:49:00 EST, Tablet, [facility] #35913, 162.56, cm, 03/08/19 14:34:00 EST, Height, 72.3, [...] 15:00:00 EDT, Aerosol, Route to Pharmacy Electronically, [id number], [facility] #69154, 1... Start Date: 06/07/19 Status: Ordered Senna 8.6 mg oral tablet 1-3 tablet, By Mouth, Daily, for constipation, # 90 tablet, Refills 5, Tot. Refills 5, Maintenance,02/17/18 15:12:45 EST, Route to Pharmacy Electronically, [id number], [facility] Start Date: 02/17/18 Status: Ordered Spacer for inhalers Spacer for inhalers, See Instructions, # 1 each, Refills 0, Tot. Refills 0, Maintenance, Use with inhalers as directed. Bengali., 06/07/19 15:07:00 EDT, Compound, 162.56, cm, 05/03/19 16:30:00 EST, Height, 72.3, kg, 09/26/18 16:01:00 EDT, Dry Weight Start Date: 06/07/19 Status: Ordered SUMAtriptan 25 mg oral tablet 1 tablet = 25 mg, By Mouth, Daily, PRN as needed for migraine headache, may repeat dose after 2 hours up to a maximum of 2, # 6 tablet, 1 Refills, Maintenance, 04/18/19 13:31:00 EST, Tablet, [facility] #[id number], 162.56, cm, 03/08/19 14:34:00 E... Start Date: 04/18/19 Status: Ordered Zofran 4 mg oral tablet 1 tablet = 4 mg, By Mouth, 2 times a day, PRN Nausea & Vomiting, # 20 tablet, 0 Refills, Maintenance, 05/24/19 22:41:00 EDT, Tablet, [facility] #13312, 162.56, cm, 05/03/19 16:30:00 EST, Height, 72.3, kg, 09/26/18 16:01:00 EDT, Dry Weight Start Date: 05/24/19 Status: Ordered zolpidem 5 mg oral tablet 0 Refills, Maintenance, 01/22/18 21:33:47 EST Start Date: 01/22/18 Status: Ordered Problem List Condition Effective Dates Status Health Status Inform ant Abdominal bloating(Confirmed) Active Acne(Confirmed) Active *[phone]- [facility] Part ner April Saavedra(Confirmed) Active AIDS (acquired immunodeficie ncy syndrome). ART [...] tolerance, and QD need over. 2genotype 02/02: [id number] is only mutation detected 3death of sister, caring for mother w/ dementia 4repeat screening colonoscopy in 2020 Social History Social History Type Response Smoking Status Former smoker, quit more than 30 days ago entered on: 05/24/18 Sex
--- OUTSIDE RECORDS SUMMARY | 2022-12-13 21:30 | XMS_ITS | Continuity of Care Document ---
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 2Result Comment: #2, [facility] 3Result Comment: [facility] 4Result Comment: pharmacy 5Location History: [facility] 6Admin Note: vis 08/31/11 7Admin Note: ADMIN.BY RN 8Result Comment: [facility] 9Admin Note: Admin. by RN 10Admin Note: Admin. by RN 11Admin Note: Admin. 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 Start Date: 09/12/20 Status: Ordered acyclovir 400 mg oral tablet 1 tablet = 400 mg, By Mouth, 2 times a day, # 10 tablet, 5 Refills, Maintenance, 01/08/21 18:41:00 EST, [facility] #09297, 162, cm, 12/17/20 23:19:00 EDT, Height, 86.3, kg, 09/29/20 15:30:00 EDT, Dry Weight Start Date: 01/08/21 Stop Date: 02/07/21 Status: Ordered Albuterol (Eqv-ProAir HFA) 90 mcg/inh inhalation aerosol 2 puffs, Inhalation, Every 4 hours, PRN NEEDED FOR WHEEZING/SHORTNESS OF BREATH, USE WITH SPACERCHAMBER, # 8.5 Gm, 5 Refills, [facility] #60904, 16, INHALE 2 PUFFS INTO LUNGS EVERY 4 HOURS NEEDED FOR WHEEZING/SHORTNESS OF BREATH. USE... Start Date: 11/13/20 Status: Ordered albuterol 0.083% inhalation solution 3 mL = 2.5 mg, Inhalation, Every 6 hours, PRN Wheezing/Shortness of Breath, # 60 each, 0 Refills, Maintenance, 06/07/20 12:51:00 EDT, Solution, [facility] #67834, 162.56, cm, 05/23/20 14:31:00 EDT, Height, 77, [...] tablet, 3 Refills, Maintenance, 03/02/20 19:50:00 EST, [facility] #82626, 1 tablet By Mouth Daily, 162.56, cm, [...] 2 Refills, Maintenance, 06/29/19 16:02:00 EDT, Tablet, [facility] #34032, 162.56, cm, 05/03/19 16:30:00 EST, Height, 72.3, kg, 09/26/18 16:01:00 EDT, Dry Weight Start Date: 06/29/19 Status: Ordered cloNIDine 0.1 mg oral tablet 0.1 mg, 1, tablet, By Mouth, 3 times a day, as needed for anxiety, # 25 tablet, Refills 0, Tot. Refills 0, Maintenance, 10/10/19 21:36:00 EDT, Route to Pharmacy Electronically, [facility] #[id number], 162.56, cm, 10/09/19 10:36:00 EDT, Height, 72... Start Date: 10/10/19 Status: Ordered Dulera 200 mcg-5 mcg/inh inhalation aerosol 2 puffs, Inhalation, 2 times a day, # 1 each, 3 Refills, Maintenance, 01/28/21 16:44:00 EST, Aerosol, [facility], STOP FLOVENT, 2 puffs Inhalation 2 [...] Gm, 5 Refills, Maintenance, 07/19/19 15:19:00 EDT, [place], [facility] #32471, 2 sprays Nares, Both Daily in AM,x30 days, 162.56, cm, 05/03/19 16:30:00 EST, Height, 72.3, kg, 09/26/18 16:01:00 EDT, Dry... Start Date: 07/19/19 Stop Date: 01/15/20 Status: Ordered fluconazole 150 mg oral tablet 1 tablet = 150 mg, By Mouth, Once, # 1 tablet, 1 Refills, Soft Stop, 01/08/21 19:37:00 EST, Tablet,[facility] #26618, 162, cm, 12/17/20 23:19:00 EDT, Height, 86.3, [...] 01/28/21 16:28:00 EST, Route to Pharmacy Electronically, [facility], STOP HCTZ, 162, cm, 01/28/21 16:02:00 [...] 05/12/18 14:45:33 EDT, Route to Pharmacy Electronically, [id number], [facility] Start Date: 05/12/18 Status: Ordered LORazepam 0.5 mg oral tablet 0.5 tablet = 0.25 mg, By Mouth, 2 times a day, PRN as needed for anxiety, # 20 tablet, 1 Refills, Maintenance, 05/16/19 23:11:00 EDT, Tablet, [facility] #95086, 162.56, cm, 05/03/19 16:30:00 EST, Height, 72.3, kg, 09/26/18 16:01:00 EDT, Dry... Start Date: 05/16/19 Status: Ordered losartan 100 mg oral tablet 1 tablet, By Mouth, Daily, # 30 tablet, 5 Refills, Maintenance, 09/24/20 16:00:00 EDT, [facility] #36772, 162, cm, 09/19/20 15:59:00 EDT, Height, 82.1, kg, 06/08/20 17:25:00 EDT, Dry Weight Start Date: 09/24/20 Status: Ordered meclizine 25 mg oral tablet 1 tablet = 25 mg, By Mouth, 2 times a day, # 30 tablet, 1 Refills, Maintenance, 03/30/19 15:49:00 EST, Tablet, [facility] #17197, 162.56, cm, 03/08/19 14:34:00 EST, Height, 72.3, kg, 09/26/18 16:01:00 EDT, Dry Weight Start Date: 03/30/19 Status: Ordered Narcan 4 mg/0.1 mL nasal spray = 4 mg, Inhalation, Once, # 2 each, 1 Refills, Soft Stop, 10/29/20 12:23:00 EDT, [facility] #31347, Partial fill upon patient request if the [...] each, 0 Refills, Maintenance, 06/04/20 16:46:00 EDT, [facility] #75551, OK to sub for any gallon prep, used as directed, 162.56, cm, 05/23/20 14:31:00 EDT, Height, 77, kg, 03/21/20 15:04:00 EST, Dry We... Start Date: 06/04/20 Status: Ordered predniSONE 50 mg oral tablet 1 tablet = 50 mg, By Mouth, Daily, # 7 tablet, 0 Refills, Maintenance, 01/28/21 16:37:00 EST, Tablet, [facility], Partial fill upon patient request if the prescription is for a schedule II opioid drug., 162, cm, 01/28/21 16:02:00 E... Start Date: 01/28/21 Stop Date: 02/04/21 Status: Ordered Senna 8.6 mg oral tablet 1-3 tablet, By Mouth, Daily, for constipation, # 90 tablet, Refills 5, Tot. Refills 5, Maintenance,03/26/20 15:25:00 EST, Route to Pharmacy Electronically, [facility] #81974 Tablet, 162.56, cm, 03/21/20 15:01:00 EST, Height, [...] 4 Refills, Maintenance, 01/28/21 16:29:00 EST, Tablet, [facility], STOP HCTZ, 162, cm, 01/28/21 16:02:00 EST, Height, 86.3, kg, 09/29/20 15:30:00 EDT, Dry Weight Start Date: 01/28/21 Stop Date: 06/27/21 Status: Ordered Sublocade 100 mg/0.5 mL subcutaneous solution, extended release = 100 mg, Subcutaneous Infusion, Every 28 days, # 1 each, 2 Refills, Maintenance, 12/17/20 21:41:00EDT, [facility], Partial fill upon patient request if the prescription is for a schedule II opioid drug., 162, cm, 12/17/20 15:09:00 EDT, Height, 86.3, kg... Start Date: 12/17/20 Status: Ordered Suboxone 8 mg-2 mg Sublingual Film 2 film, Sublingual, Daily, dissolve under the tongue increase in dose 01/22/2021 [id number], # 60 film, 0 Refills, Maintenance, 01/22/21 13:49:00 EST, Film, [facility] #[id number], Partial fill upon patient request if the prescription is for a... Start Date: 01/22/21 Status: Ordered SUMAtriptan 25 mg oral tablet 1 tablet = 25 mg, By Mouth, Daily, PRN as needed for migraine headache, may repeat dose after 2 hours up to a maximum of 2, # 6 tablet, 1 Refills, Maintenance, 03/02/20 19:47:00 EST, Tablet, [facility] #86337, 162.56, cm, 01/04/20 9:40:00 ES... Start Date: 03/02/20 Status: Ordered Zofran 4 mg oral tablet 1 tablet = 4 mg, By Mouth, 2 times a day, PRN Nausea & Vomiting, # 10 tablet, 0 Refills, Maintenance, 12/01/20 20:26:00 EDT, Tablet, [facility] #07538, 162, cm, 10/29/20 17:08:00 EDT, Height, 86.3, [...] Obese class II(Confirmed) Active Opioid dependence(Confirmed) Active *[phone] Care Partn er April Saavedra(Confirmed) Active Health [...] tolerance, and QD need over. 2genotype 02/02: [id number] is only mutation detected 3death of sister, caring for mother w/ dementia 4repeat screening colonoscopy in 2020 Social History Social History Type Response Smoking Status Former smoker, quit more than 30 days ago entered on: 10/29/20 Sex
--- OUTSIDE RECORDS SUMMARY | 2022-12-13 21:30 | XMS_ITS | Continuity of Care Document ---
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 2Result Comment: #2, [facility] 3Result Comment: [facility] 4Result Comment: pharmacy 5Location History: [facility] 6Admin Note: vis 08/31/11 7Admin Note: ADMIN.BY RN 8Result Comment: [facility] 9Admin Note: Admin. by RN 10Admin Note: Admin. by RN 11Admin Note: Admin. 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 USE... Start Date: 11/13/20 Status: Ordered albuterol 0.083% inhalation solution 3 mL = 2.5 mg, Inhalation, Every 6 hours, PRN Wheezing/Shortness of Breath, # 60 each, 0 Refills, Maintenance, 06/07/20 12:51:00 EDT, Solution, [facility] #[id number], 162.56, cm, 05/23/20 14:31:00 EDT, Height, 77, [...] tablet, 3 Refills, Maintenance, 06/13/21 22:19:00 EDT, [facility] #60621, 1 tablet By Mouth Daily, 162, cm, [...] 1 Refills, Maintenance, 07/10/21 18:35:00 EDT, Tablet, [facility] #52659, Partial fill upon patient request if the prescription is for a schedule II opioid drug., 162, cm, 06/19/21 15:40:00 EDT... Start Date: 07/10/21 Status: Ordered cetirizine 10 mg oral tablet 1 tablet = 10 mg, By Mouth, Daily, For allergies., # 30 tablet, 2 Refills, Maintenance, 06/29/19 16:02:00 EDT, Tablet, [facility] #10040, 162.56, cm, 05/03/19 16:30:00 EST, Height, 72.3, kg, 09/26/18 16:01:00 EDT, Dry Weight Start Date: 06/29/19 Status: Ordered cloNIDine 0.1 mg oral tablet 0.1 mg, 1, tablet, By Mouth, 3 times a day, as needed for anxiety, # 25 tablet, Refills 0, Tot. Refills 0, Maintenance, 10/10/19 21:36:00 EDT, Route to Pharmacy Electronically, [facility] #[id number], 162.56, cm, 10/09/19 10:36:00 EDT, Height, 72... Start Date: 10/10/19 Status: Ordered diclofenac 1% topical gel = 2 Gm, Topically, 4 times a day, PRN for pain, not to exceed: 10 gm/day, # 100 Gm, 1 Refills, Maintenance, 05/29/21 16:52:00 EDT, Gel, [facility], Partial fill upon patient request if the prescription is for a schedule II opioid... Start Date: 05/29/21 Status: Ordered Dulera 200 mcg-5 mcg/inh inhalation aerosol 2 puffs, Inhalation, 2 times a day, # 1 each, 3 Refills, Maintenance, 01/28/21 16:44:00 EST, Aerosol, [facility], STOP FLOVENT, 2 puffs Inhalation 2 times a day,x30 days, 162, cm,01/28/21 16:02:00 EST, Height, 86.3, kg, 09/29/20 1... Start Date: 01/28/21 Stop Date: 05/28/21 Status: Ordered escitalopram 10 mg oral tablet 1 tablet = 10 mg, By Mouth, Daily, # 30 tablet, 11 Refills, Maintenance, 07/31/21 17:50:00 EDT, Tablet, [facility] #[id number], Partial fill upon patient request if the [...] Gm, 5 Refills, Maintenance, 07/19/19 15:19:00 EDT, [place], [facility] #[id number], 2 sprays Nares, Both Daily in AM,x30 days, 162.56, cm, 05/03/19 16:30:00 EST, Height, 72.3, kg, 09/26/18 16:01:00 EDT, Dry... Start Date: 07/19/19 Stop Date: 01/15/20 Status: Ordered fluconazole 150 mg oral tablet 1 tablet = 150 mg, By Mouth, Once, # 1 tablet, 1 Refills, Soft Stop, 01/08/21 19:37:00 EST, Tablet,[facility] #[id number], 162, cm, 12/17/20 23:19:00 EDT, Height, 86.3, [...] 04/24/21 12:37:00 EST, Route to Pharmacy Electronically, [facility] #[id number], STOP HCTZ, 162, cm, 03/24/21 18:41:00 EST, [...] Instructions, # 1 each, Maintenance, covering for [facility] Blood pressure monitor neededto monitor blood [...] 05/12/18 14:45:33 EDT, Route to Pharmacy Electronically, [id number], [facility] Start Date: 05/12/18 Status: Ordered LORazepam 0.5 mg oral tablet 0.5 tablet = 0.25 mg, By Mouth, 2 times a day, PRN as needed for anxiety, # 20 tablet, 1 Refills, Maintenance, 05/16/19 23:11:00 EDT, Tablet, [facility] #17224, 162.56, cm, 05/03/19 16:30:00 EST, Height, 72.3, kg, 09/26/18 16:01:00 EDT, Dry... Start Date: 05/16/19 Status: Ordered losartan 100 mg oral tablet 1 tablet, By Mouth, Daily, # 30 tablet, 2 Refills, [facility] #[id number], 162, cm, 06/19/21 15:40:00 EDT, Height, 86.3, kg, 09/29/20 15:30:00 EDT, Dry Weight Start Date: 07/10/21 Status: Ordered meclizine 25 mg oral tablet 1 tablet = 25 mg, By Mouth, 2 times a day, # 30 tablet, 1 Refills, Maintenance, 07/10/21 17:25:00 EDT, Tablet, [facility] #12633, 162, cm, 06/19/21 15:40:00 EDT, Height, 86.3, kg, 09/29/20 15:30:00 EDT, Dry Weight Start Date: 07/10/21 Status: Ordered multivitamin with iron Multiple Vitamins with Iron oral tablet 1 tablet, By Mouth, Daily, # 30 tablet, 11 Refills, Maintenance, 09/06/21 19:08:00 EDT, Tablet, [facility] #43801, 1 tablet By Mouth Daily, 162, cm, 07/31/21 16:00:00 EDT, Height, 86.3, kg,09/29/20 15:30:00 EDT, Dry Weight Start Date: 09/06/21 Status: Ordered Narcan 4 mg/0.1 mL nasal spray = 4 mg, Inhalation, Once, # 2 each, 1 Refills, Soft Stop, 10/29/20 12:23:00 EDT, [facility] #[id number], Partial fill upon patient request if the [...] each, 0 Refills, Maintenance, 06/04/20 16:46:00 EDT, [facility] #41317, OK to sub for any gallon prep, used as directed, 162.56, cm, 05/23/20 14:31:00 EDT, Height, 77, kg, 03/21/20 15:04:00 EST, Dry We... Start Date: 06/04/20 Status: Ordered predniSONE 50 mg oral tablet 1 tablet = 50 mg, By Mouth, Daily, # 7 tablet, 0 Refills, Maintenance, 01/28/21 16:37:00 EST, Tablet, [facility], Partial fill upon patient request if the prescription is for a schedule II opioid drug., 162, cm, 01/28/21 16:02:00 E... Start Date: 01/28/21 Stop Date: 02/04/21 Status: Ordered Senna 8.6 mg oral tablet 1-3 tablet, By Mouth, Daily, for constipation, # 90 tablet, Refills 5, Tot. Refills 5, Maintenance,03/26/20 15:25:00 EST, Route to Pharmacy Electronically, [facility] #[id number] Tablet, 162.56, cm, 03/21/20 15:01:00 EST, Height, [...] 5 Refills, Maintenance, 04/24/21 12:36:00 EST, Tablet, [facility] #[id number], STOP HCTZ, 162, cm, 03/24/21 18:41:00 EST, [...] under the tongue increase in dose Dino [id number] due on/after 09/25/2021, # 70 film, 0 Refills, Maintenance, 09/25/21 14:31:00 EDT, Film, [facility], 2.5 film Sublingual Daily,x28 days,In... Start Date: 09/25/21 Stop Date: 10/23/21 Status: Ordered Suboxone 8 mg-2 mg Sublingual Film 2.5 film, Sublingual, Daily, dissolve under the tongue increase in dose Iveth [id number] coveringfor [place] due on/after 08/22/2021, # 35 film, 0 Refills, Maintenance, 08/22/21 9:27:00 EDT, Film,[facility], 2.5 film Subli... Start Date: 08/22/21 Stop Date: 09/05/21 Status: Ordered SUMAtriptan 25 mg oral tablet 1 tablet = 25 mg, By Mouth, Daily, PRN as needed for migraine headache, may repeat dose after 2 hours up to a maximum of 2, # 6 tablet, 1 Refills, Maintenance, 03/02/20 19:47:00 EST, Tablet, [facility] #[id number], 162.56, cm, 01/04/20 9:40:00 ES... Start Date: 03/02/20 Status: Ordered Zofran 4 mg oral tablet 1 tablet = 4 mg, By Mouth, Daily, PRN Nausea & Vomiting, # 10 tablet, 1 Refills, Maintenance, 08/18/21 22:17:00 EDT, Tablet, [facility] #78247, 162, cm, 07/31/21 16:00:00 EDT, Height, 86.3, kg, 09/29/20 15:30:00 EDT, Dry Weight Start Date: 08/18/21 Status: Ordered zolpidem 5 mg oral tablet 1 tablet = 5 mg, By Mouth, Daily at bedtime, PRN as needed for sleep, # 30 tablet, 1 Refills, Maintenance, 09/04/21 20:17:00 EDT, [facility] #[id number], 162, cm, 07/31/21 16:00:00 EDT, Height, 86.3, [...] Obese class I(Confirmed) Active Opioid dependence(Confirmed) Active *[id number] Care Partn er April Saavedra(Confirmed) Active Health [...] tolerance, and QD need over. 2genotype 02/02: [id number] is only mutation detected 3death of sister, caring for mother w/ dementia 4repeat screening colonoscopy in 2020 Social History Social History Type Response Smoking Status Former smoker, quit more than 30 days ago entered on: 10/29/20 Sex
--- OUTSIDE RECORDS SUMMARY | 2022-12-13 21:30 | XMS_ITS | Continuity of Care Document ---
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 by RN 9Admin Note: Admin. by RN 10Admin Note: Admin. 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 Start Date: 09/12/20 Status: Ordered acyclovir 400 mg oral tablet 1 tablet = 400 mg, By Mouth, 2 times a day, # 10 tablet, 5 Refills, Maintenance, 01/26/20 16:20:00 EST, [facility], 162.56, cm, 10/09/19 10:36:00 EDT, Height, 72.3, kg, 09/26/18 16:01:00 EDT, Dry Weight Start Date: 01/26/20 Stop Date: 02/25/20 Status: Ordered Albuterol (Eqv-ProAir HFA) 90 mcg/inh inhalation aerosol 2 puffs, Inhalation, Every 4 hours, PRN NEEDED FOR WHEEZING/SHORTNESS OF BREATH, USE WITH SPACERCHAMBER, # 8.5 Gm, 5 Refills, [facility] #[id number], 16, INHALE 2 PUFFS INTO LUNGS EVERY 4 HOURS NEEDED FOR WHEEZING/SHORTNESS OF BREATH. USE... Start Date: 11/13/20 Status: Ordered albuterol 0.083% inhalation solution 3 mL = 2.5 mg, Inhalation, Every 6 hours, PRN Wheezing/Shortness of Breath, # 60 each, 0 Refills, Maintenance, 06/07/20 12:51:00 EDT, Solution, [facility] #[id number], 162.56, cm, 05/23/20 14:31:00 EDT, Height, 77, [...] tablet, 3 Refills, Maintenance, 03/02/20 19:50:00 EST, [facility] #[id number], 1 tablet By Mouth Daily, 162.56, cm, 01/04/20 9:40:00 EST, Height, 72.3, kg, 09/26/18 16:01:00 EDT, Dry Weight Start Date: 03/02/20 Status: Ordered Blood Pressure Meter Blood Pressure Meter, See Instructions, # 1 each, Refills 0, Tot. Refills 0, Maintenance, Use for, 07/11/18 16:11:47 EDT, Compound Start Date: 07/11/18 Status: Ordered buprenorphine-naloxone 2 mg-0.5 mg sublingual film 0.25 each, Sublingual, Daily, Dino [id number], # 8 film, 0 Refills, Maintenance, 12/15/19 19:00:00 EDT, [facility] #[id number], Partial fill on request., 0.25 each Sublingual Daily,Instr:Dino [id number], 162.56, cm, 10/09/19 10:36:00 EDT, Hei... Start Date: 12/15/19 Status: Ordered buprenorphine-naloxone 8 mg-2 mg sublingual film 1 film, Sublingual, Daily, dissolve under the tongue Scavron [id number] covering for Dino [id number], # 7 film, 0 Refills, Maintenance, 11/27/20 12:26:00 EDT, Film, [facility], Partial fill upon patient request if the prescriptio... Start Date: 11/27/20 Stop Date: 12/04/20 Status: Ordered cetirizine 10 mg oral tablet 1 tablet = 10 mg, By Mouth, Daily, For allergies., # 30 tablet, 2 Refills, Maintenance, 06/29/19 16:02:00 EDT, Tablet, [facility] #[id number], 162.56, cm, 05/03/19 16:30:00 EST, Height, 72.3, kg, 09/26/18 16:01:00 EDT, Dry Weight Start Date: 06/29/19 Status: Ordered cloNIDine 0.1 mg oral tablet 0.1 mg, 1, tablet, By Mouth, 3 times a day, as needed for anxiety, # 25 tablet, Refills 0, Tot. Refills 0, Maintenance, 10/10/19 21:36:00 EDT, Route to Pharmacy Electronically, [facility] #[id number], 162.56, cm, 10/09/19 10:36:00 EDT, Height, 72... [...] Gm, 5 Refills, Maintenance, 07/19/19 15:19:00 EDT, [place], [facility] #[id number], 2 sprays Nares, Both Daily in AM,x30 days, 162.56, cm, 05/03/19 16:30:00 EST, Height, 72.3, kg, 09/26/18 16:01:00 EDT, Dry... Start Date: 07/19/19 Stop Date: 01/15/20 Status: Ordered Flovent HFA 44 mcg/inh inhalation aerosol 1 puffs, Inhalation, 2 times a day, # 1 each, 5 Refills, Maintenance, 06/07/20 12:52:00 EDT, Aerosol, [facility] #[id number], 162.56, cm, 05/23/20 14:31:00 EDT, Height, 77, [...] # 1 each, Maintenance, covering for [facility] Blood pressure monitor neededto monitor [...] 3 Refills, Maintenance, 03/02/20 19:48:00 EST, Tablet, [facility] #[id number], 30 day supply preferred for present, 162.56, [...] 05/12/18 14:45:33 EDT, Route to Pharmacy Electronically, [id number], [facility] Start Date: 05/12/18 Status: Ordered LORazepam 0.5 mg oral tablet 0.5 tablet = 0.25 mg, By Mouth, 2 times a day, PRN as needed for anxiety, # 20 tablet, 1 Refills, Maintenance, 05/16/19 23:11:00 EDT, Tablet, [facility] #[id number], 162.56, cm, 05/03/19 16:30:00 EST, Height, 72.3, kg, 09/26/18 16:01:00 EDT, Dry... Start Date: 05/16/19 Status: Ordered losartan 100 mg oral tablet 1 tablet, By Mouth, Daily, # 30 tablet, 5 Refills, Maintenance, 09/24/20 16:00:00 EDT, [facility] #[id number], 162, cm, 09/19/20 15:59:00 EDT, Height, 82.1, kg, 06/08/20 17:25:00 EDT, Dry Weight Start Date: 09/24/20 Status: Ordered meclizine 25 mg oral tablet 1 tablet = 25 mg, By Mouth, 2 times a day, # 30 tablet, 1 Refills, Maintenance, 03/30/19 15:49:00 EST, Tablet, [facility] #38998, 162.56, cm, 03/08/19 14:34:00 EST, Height, 72.3, kg, 09/26/18 16:01:00 EDT, Dry Weight Start Date: 03/30/19 Status: Ordered Narcan 4 mg/0.1 mL nasal spray = 4 mg, Inhalation, Once, # 2 each, 1 Refills, Soft Stop, 10/29/20 12:23:00 EDT, [facility] #[id number], Partial fill upon patient request if the [...] each, 0 Refills, Maintenance, 06/04/20 16:46:00 EDT, [facility] #[id number], OK to sub for any gallon prep, used as directed, 162.56, cm, 05/23/20 14:31:00 EDT, Height, 77, kg, 03/21/20 15:04:00 EST, Dry We... Start Date: 06/04/20 Status: Ordered Senna 8.6 mg oral tablet 1-3 tablet, By Mouth, Daily, for constipation, # 90 tablet, Refills 5, Tot. Refills 5, Maintenance,03/26/20 15:25:00 EST, Route to Pharmacy Electronically, [facility] #[id number] Tablet, 162.56, cm, 03/21/20 15:01:00 EST, Height, 77, kg, ... Start Date: 03/26/20 Status: Ordered Spacer for inhalers Spacer for inhalers, See Instructions, # 1 each, Refills 0, Tot. Refills 0, Maintenance, Use with inhalers as directed. Chinese., 06/07/19 15:07:00 EDT, Compound, 162.56, cm, 05/03/19 [...] 1 Refills, Maintenance, 03/02/20 19:47:00 EST, Tablet, [facility] #03139, 162.56, cm, 01/04/20 9:40:00 ES... Start Date: 03/02/20 Status: Ordered Zofran 4 mg oral tablet 1 tablet = 4 mg, By Mouth, 2 times a day, PRN Nausea & Vomiting, # 10 tablet, 0 Refills, Maintenance, 09/19/20 18:37:00 EDT, Tablet, [facility] #06412, 162, cm, 09/19/20 15:59:00 EDT, Height, 82.1, [...] Active Opioid dependence(Confirmed) Active Opioid dependence(Confirmed) Active *[id number] Care Partn er April Saavedra(Confirmed) Active Health [...] tolerance, and QD need over. 2genotype 02/02: [id number] is only mutation detected 3death of sister, caring for mother w/ dementia 4repeat screening colonoscopy in 2020 Social History Social History Type Response Smoking Status Former smoker, quit more than 30 days ago entered on: 10/29/20 Sex
--- OUTSIDE RECORDS SUMMARY | 2022-12-13 21:30 | XMS_ITS | Continuity of Care Document ---
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 2Result Comment: #2, [facility] 3Result Comment: [facility] 4Result Comment: pharmacy 5Location History: [facility] 6Admin Note: vis 08/31/11 7Admin Note: ADMIN.BY RN 8Result Comment: [facility] 9Admin Note: Admin. by RN 10Admin Note: Admin. by RN 11Admin Note: Admin. 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 USE... Start Date: 11/13/20 Status: Ordered albuterol 0.083% inhalation solution 3 mL = 2.5 mg, Inhalation, Every 6 hours, PRN Wheezing/Shortness of Breath, # 60 each, 0 Refills, Maintenance, 06/07/20 12:51:00 EDT, Solution, [facility] #[id number], 162.56, cm, 05/23/20 14:31:00 EDT, Height, 77, [...] tablet, 3 Refills, Maintenance, 06/13/21 22:19:00 EDT, [facility] #[id number], 1 tablet By Mouth Daily, 162, cm, [...] 1 Refills, Maintenance, 07/10/21 18:35:00 EDT, Tablet, [facility] #[id number], Partial fill upon patient request if the prescription is for a schedule II opioid drug., 162, cm, 06/19/21 15:40:00 EDT... Start Date: 07/10/21 Status: Ordered cetirizine 10 mg oral tablet 1 tablet = 10 mg, By Mouth, Daily, For allergies., # 30 tablet, 2 Refills, Maintenance, 06/29/19 16:02:00 EDT, Tablet, [facility] #[id number], 162.56, cm, 05/03/19 16:30:00 EST, Height, 72.3, kg, 09/26/18 16:01:00 EDT, Dry Weight Start Date: 06/29/19 Status: Ordered cloNIDine 0.1 mg oral tablet 0.1 mg, 1, tablet, By Mouth, 3 times a day, as needed for anxiety, # 25 tablet, Refills 0, Tot. Refills 0, Maintenance, 10/10/19 21:36:00 EDT, Route to Pharmacy Electronically, [facility] #[id number], 162.56, cm, 10/09/19 10:36:00 EDT, Height, 72... Start Date: 10/10/19 Status: Ordered diclofenac 1% topical gel = 2 Gm, Topically, 4 times a day, PRN for pain, not to exceed: 10 gm/day, # 100 Gm, 1 Refills, Maintenance, 05/29/21 16:52:00 EDT, Gel, [facility], Partial fill upon patient request if the prescription is for a schedule II opioid... Start Date: 05/29/21 Status: Ordered Dulera 200 mcg-5 mcg/inh inhalation aerosol 2 puffs, Inhalation, 2 times a day, # 1 each, 3 Refills, Maintenance, 01/28/21 16:44:00 EST, Aerosol, [facility], STOP FLOVENT, 2 puffs Inhalation 2 times a day,x30 days, 162, cm,01/28/21 16:02:00 EST, Height, 86.3, kg, 09/29/20 1... Start Date: 01/28/21 Stop Date: 05/28/21 Status: Ordered escitalopram 5 mg oral tablet 1 tablet = 5 mg, By Mouth, Daily, # 30 tablet, 11 Refills, Maintenance, 05/07/21 9:48:00 EST, Tablet, [facility] #[id number], Partial fill upon patient request if the prescription is for a schedule II opioid drug., 162, cm, 05/07/21 8:46:00 EST,... Start Date: 05/07/21 Status: Ordered Flonase 50 mcg/inh nasal spray 2 sprays, Nares, Both, Daily in AM, # 16 Gm, 5 Refills, Maintenance, 07/19/19 15:19:00 EDT, [place], [facility] #[id number], 2 sprays Nares, Both Daily in AM,x30 days, 162.56, cm, 05/03/19 16:30:00 EST, Height, 72.3, kg, 09/26/18 16:01:00 EDT, Dry... Start Date: 07/19/19 Stop Date: 01/15/20 Status: Ordered fluconazole 150 mg oral tablet 1 tablet = 150 mg, By Mouth, Once, # 1 tablet, 1 Refills, Soft Stop, 01/08/21 19:37:00 EST, [facility] #[id number], 162, cm, 12/17/20 23:19:00 EDT, Height, 86.3, [...] 04/24/21 12:37:00 EST, Route to Pharmacy Electronically, [facility] #[id number], STOP HCTZ, 162, cm, 03/24/21 18:41:00 EST, [place]... Start Date: 04/24/21 Stop Date: 10/21/21 Status: [...] # 1 each, Maintenance[facility] Blood pressure monitor neededto monitor blood pressure [...] 05/12/18 14:45:33 EDT, Route to Pharmacy Electronically, [id number], [facility] Start Date: 05/12/18 Status: Ordered LORazepam 0.5 mg oral tablet 0.5 tablet = 0.25 mg, By Mouth, 2 times a day, PRN as needed for anxiety, # 20 tablet, 1 Refills, Maintenance, 05/16/19 23:11:00 EDT, Tablet, [facility] #[id number], 162.56, cm, 05/03/19 16:30:00 EST, Height, 72.3, kg, 09/26/18 16:01:00 EDT, Dry... Start Date: 05/16/19 Status: Ordered losartan 100 mg oral tablet 1 tablet, By Mouth, Daily, # 30 tablet, 2 Refills, [facility] #[id number], 162, cm, 06/19/21 15:40:00 EDT, Height, 86.3, kg, 09/29/20 15:30:00 EDT, Dry Weight Start Date: 07/10/21 Status: Ordered meclizine 25 mg oral tablet 1 tablet = 25 mg, By Mouth, 2 times a day, # 30 tablet, 1 Refills, Maintenance, 07/10/21 17:25:00 EDT, Tablet, [facility] #[id number], 162, cm, 06/19/21 15:40:00 EDT, Height, 86.3, kg, 09/29/20 15:30:00 EDT, Dry Weight Start Date: 07/10/21 Status: Ordered multivitamin with iron Multiple Vitamins with Iron oral tablet 1 tablet, By Mouth, Daily, # 30 tablet, 11 Refills, Maintenance, 05/07/21 9:45:00 EST, Tablet, [facility] #[id number], Partial fill upon patient request if the prescription is for a schedule II opioid drug., 1 tablet By Mouth Daily, 162, cm, 030... Start Date: 05/07/21 Status: Ordered Narcan 4 mg/0.1 mL nasal spray = 4 mg, Inhalation, Once, # 2 each, 1 Refills, Soft Stop, 10/29/20 12:23:00 EDT, [facility] #[id number], Partial fill upon patient request if the [...] each, 0 Refills, Maintenance, 06/04/20 16:46:00 EDT, [facility] #[id number], OK to sub for any gallon prep, used as directed, 162.56, cm, 05/23/20 14:31:00 EDT, Height, 77, kg, 03/21/20 15:04:00 EST, Dry We... Start Date: 06/04/20 Status: Ordered predniSONE 50 mg oral tablet 1 tablet = 50 mg, By Mouth, Daily, # 7 tablet, 0 Refills, Maintenance, 01/28/21 16:37:00 EST, Tablet, [facility], Partial fill upon patient request if the prescription is for a schedule II opioid drug., 162, cm, 01/28/21 16:02:00 E... Start Date: 01/28/21 Stop Date: 02/04/21 Status: Ordered Senna 8.6 mg oral tablet 1-3 tablet, By Mouth, Daily, for constipation, # 90 tablet, Refills 5, Tot. Refills 5, Maintenance,03/26/20 15:25:00 EST, Route to Pharmacy Electronically, [facility] #[id number] Tablet, 162.56, cm, 03/21/20 15:01:00 EST, Height, [...] 5 Refills, Maintenance, 04/24/21 12:36:00 EST, Tablet, [facility] #[id number], STOP HCTZ, 162, cm, 03/24/21 18:41:00 EST, [...] under the tongue increase in dose Dino [id number] due on/after 07/03/2021, # 35 film, 0 Refills, Maintenance, 07/03/21 13:32:00 EDT, Film, [facility]#[id number], 2.5 film Sublingual Daily,x14 days,Inst... Start Date: 07/03/21 Stop Date: 07/17/21 Status: Ordered SUMAtriptan 25 mg oral tablet 1 tablet = 25 mg, By Mouth, Daily, PRN as needed for migraine headache, may repeat dose after 2 hours up to a maximum of 2, # 6 tablet, 1 Refills, Maintenance, 03/02/20 19:47:00 EST, Tablet, [facility] #[id number], 162.56, cm, 01/04/20 9:40:00 ES... Start Date: 03/02/20 Status: Ordered Zofran 4 mg oral tablet 1 tablet = 4 mg, By Mouth, 2 times a day, PRN Nausea & Vomiting, # 10 tablet, 1 Refills, Maintenance, 06/19/21 17:01:00 EDT, Tablet, [facility] #[id number], 162, cm, 06/19/21 15:40:00 EDT, Height, 86.3, kg, 09/29/20 15:30:00 EDT, Dry Weight Start Date: 06/19/21 Status: Ordered zolpidem 5 mg oral tablet 1 tablet = 5 mg, By Mouth, Daily at bedtime, PRN as needed for sleep, # 30 tablet, 0 Refills, Maintenance, 06/28/21 16:47:00 EDT, [facility] #[id number], Partial fill upon patient request if theprescription [...] Obese class I(Confirmed) Active Opioid dependence(Confirmed) Active *[phone] Care Partn er April Saavedra(Confirmed) Active Health [...] tolerance, and QD need over. 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
--- OUTSIDE RECORDS SUMMARY | 2022-12-13 21:30 | XMS_ITS | Continuity of Care Document ---
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 Role Phone Kahlil Sun MD Primary Care Physician Encounter [facility] [place] Date(s): 03/21/20 - 03/28/20 [facility] [address] [place] [address]- Attending Physician: Amita Ballard MD Referring Physician: [...] access hospital 2Result Comment: pharmacy 3Location History: [facility] 4Admin Note: vis 08/31/11 5Admin Note: ADMIN.BY [...] tablet, 5 Refills, Maintenance, 01/26/20 16:20:00 EST, [facility], 162.56, cm, 10/09/19 10:36:00 EDT, Height, 72.3, kg, 09/26/18 16:01:00 EDT, Dry Weight Start Date: 01/26/20 Stop Date: 02/25/20 Status: Ordered albuterol 0.083% inhalation solution 3 mL = 2.5 mg, Inhalation, Every 6 hours, PRN Wheezing/Shortness of Breath, # 60 each, 0 Refills, Maintenance, 06/07/19 14:59:00 EDT, Solution, [facility] #[id number], 162.56, cm, 05/03/19 16:30:00 EST, Height, 72.3, kg, 09/26/18 16:01:00 EDT, Start Date: 06/07/19 Status: Ordered Biktarvy oral tablet 1 tablet, By Mouth, Daily, # 90 tablet, 3 Refills, Maintenance, 03/02/20 19:50:00 EST, [facility] #[id number], 1 tablet By Mouth Daily, 162.56, cm, 01/04/20 9:40:00 EST, Height, 72.3, kg, 09/26/18 16:01:00 EDT, Dry Weight Start Date: 03/02/20 Status: Ordered Blood Pressure Meter Blood Pressure Meter, See Instructions, # 1 each, Refills 0, Tot. Refills 0, Maintenance, Use for, 07/11/18 16:11:47 EDT, Compound Start Date: 07/11/18 Status: Ordered buprenorphine-naloxone 2 mg-0.5 mg sublingual film 1 film, Sublingual, Daily, [facility] [id number], # 14 film, 0 Refills, Maintenance, 02/08/20 16:47:00 EST, [facility] #[id number], Partial fill on request., 1 film Sublingual Daily,Instr:Gl[facility] [id number], 162.56, cm, 01/04/20 9:40:00 EST, Height, 7... Start Date: 02/08/20 Status: Ordered buprenorphine-naloxone 2 mg-0.5 mg sublingual film 0.25 each, Sublingual, Daily, [facility] [id number], # 8 film, 0 Refills, Maintenance, 12/15/19 19:00:00 EDT, [facility] #[id number], Partial fill on request., 0.25 each Sublingual Daily,Instr:Dino [id number], 162.56, cm, 10/09/19 10:36:00 EDT, Hei... Start Date: 12/15/19 Status: Ordered cetirizine 10 mg oral tablet 1 tablet = 10 mg, By Mouth, Daily, For allergies., # 30 tablet, 2 Refills, Maintenance, 06/29/19 16:02:00 EDT, Tablet, [facility] #[id number], 162.56, cm, 05/03/19 16:30:00 EST, Height, 72.3, kg, 09/26/18 16:01:00 EDT, Dry Weight Start Date: 06/29/19 Status: Ordered cloNIDine 0.1 mg oral tablet 0.1 mg, 1, tablet, By Mouth, 3 times a day, as needed for anxiety, # 25 tablet, Refills 0, Tot. Refills 0, Maintenance, 10/10/19 21:36:00 EDT, Route to Pharmacy Electronically, [facility] #[id number], 162.56, cm, 10/09/19 10:36:00 EDT, Height, 72... [...] Gm, 5 Refills, Maintenance, 07/19/19 15:19:00 EDT, [place], [facility] #78107, 2 sprays Nares, Both Daily in AM,x30 days, 162.56, cm, 05/03/19 16:30:00 EST, Height, 72.3, kg, 09/26/18 16:01:00 EDT, Dry... Start Date: 07/19/19 Stop Date: 01/15/20 Status: Ordered Flovent HFA 44 mcg/inh inhalation aerosol 1 puffs, Inhalation, 2 times a day, # 1 each, 5 Refills, Maintenance, 06/29/19 16:26:00 EDT, Aerosol, [facility] #[id number], 162.56, cm, 05/03/19 16:30:00 EST, Height, 72.3, [...] 1 each, Maintenance, covering for [facility] Blood pressure monitor neededto monitor [...] 3 Refills, Maintenance, 03/02/20 19:48:00 EST, Tablet, [facility] #[id number], 30 day supply preferred for present, 162.56, [...] 05/12/18 14:45:33 EDT, Route to Pharmacy Electronically, [id number], [facility] Start Date: 05/12/18 Status: Ordered LORazepam 0.5 mg oral tablet 0.5 tablet = 0.25 mg, By Mouth, 2 times a day, PRN as needed for anxiety, # 20 tablet, 1 Refills, Maintenance, 05/16/19 23:11:00 EDT, Tablet, [facility] #[id number], 162.56, cm, 05/03/19 16:30:00 EST, Height, 72.3, kg, 09/26/18 16:01:00 EDT, Dry... Start Date: 05/16/19 Status: Ordered losartan 100 mg oral tablet 1 tablet = 100 mg, By Mouth, Daily, # 30 tablet, 11 Refills, Maintenance, 06/29/19 15:59:00 EDT, Tablet, [facility] #[id number], 162.56, cm, 05/03/19 16:30:00 EST, Height, 72.3, kg, 09/26/18 16:01:00 EDT, Dry Weight Start Date: 06/29/19 Status: Ordered meclizine 25 mg oral tablet 1 tablet = 25 mg, By Mouth, 2 times a day, # 30 tablet, 1 Refills, Maintenance, 03/30/19 15:49:00 EST, Tablet, [facility] #[id number], 162.56, cm, 03/08/19 14:34:00 EST, Height, 72.3, [...] 15:00:00 EDT, Aerosol, Route to Pharmacy Electronically, [id number], [facility] #[id number], 1... Start Date: 06/07/19 Status: Ordered Senna 8.6 mg oral tablet 1-3 tablet, By Mouth, Daily, for constipation, # 90 tablet, Refills 5, Tot. Refills 5, Maintenance,03/26/20 15:25:00 EST, Route to Pharmacy Electronically, [facility] #[id number] Tablet, 162.56, cm, 03/21/20 15:01:00 EST, Height, 77, kg, 2... Start Date: 03/26/20 Status: Ordered Spacer for inhalers Spacer for inhalers, See Instructions, # 1 each, Refills 0, Tot. Refills 0, Maintenance, Use with inhalers as directed. [place]., 06/07/19 15:07:00 EDT, Compound, 162.56, cm, 05/03/19 16:30:00 EST, Height, 72.3, kg, 09/26/18 16:01:00 EDT, Dry Weight Start Date: 06/07/19 Status: Ordered SUMAtriptan 25 mg oral tablet 1 tablet = 25 mg, By Mouth, Daily, PRN as needed for migraine headache, may repeat dose after 2 hours up to a maximum of 2, # 6 tablet, 1 Refills, Maintenance, 03/02/20 19:47:00 EST, Tablet, [facility] #[id number], 162.56, cm, 01/04/20 9:40:00 ES... Start Date: 03/02/20 Status: Ordered Zofran 4 mg oral tablet 1 tablet = 4 mg, By Mouth, 2 times a day, PRN Nausea & Vomiting, # 10 tablet, 0 Refills, Maintenance, 03/02/20 19:47:00 EST, Tablet, [facility] #[id number], 162.56, cm, 01/04/20 9:40:00 EST,Height, 72.3, kg, [...] 2016 Active Migraine(Confirmed) Active Opioid dependence(Confirmed) Active *[id number] Care Partn renee Chen Saavedra(Confirmed) Active Health [...] tolerance, and QD need over. 2genotype 02/02: [id number] is only mutation detected 3death of sister, caring for mother w/ dementia 4repeat screening colonoscopy in 2020 Vital Signs Most recent to oldest [Reference Range]: 1 Height 162.56 cm (03/21/20 3:01 PM) Weight 77.0 kg (03/21/20 3:01 PM) Oxygen Saturation [94-100 %] 100 % (03/21/20 3:01 PM) Pulse Rate [55-90 bpm] 80 bpm (03/21/20 3:01 PM) Body Mass Index [18.5-24.99] 29.14 *H* (03/21/20 3:01 PM) Blood Pressure [90-138/55-84 mm Hg] 122/ 91mm Hg (03/21/20 3:01 PM) Respiratory Rate [16-30 br/min] 16 br/mi n (03/21/20 3:01 PM) Temperature [96.8-100.4 DegF] 97.5 DegF (03/21/20 3:01 PM) Mode of Delivery (Oxygen) Room air (03/21/20 3:01 PM) Blood pressure sites Arm, right (03/21/20 3:01 PM) Temperature Route Temporal (03/21/20 3:01 PM) Dry Weight 77.0 kg (03/21/20 3:01 PM) Weight Obtained Via Standing scale (03/21/20 3:01 PM) Dry Weight Obtained Via Standing scale (03/21/20 3:01 PM) Social History Social History Type Response Smoking Status Former smoker, quit more than 30 days ago entered on: 05/24/18 Sex
--- OUTSIDE RECORDS SUMMARY | 2022-12-13 21:30 | XMS_ITS | Continuity of Care Document ---
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 2Result Comment: #2, [facility] 3Result Comment: [facility] 4Result Comment: pharmacy 5Location History: [facility] 6Admin Note: vis 08/31/11 7Admin Note: ADMIN.BY RN 8Result Comment: [facility] 9Admin Note: Admin. by RN 10Admin Note: Admin. by RN 11Admin Note: Admin. by RN 12Admin Note: vis 06/15/15 13Admin Note: dose #6 (3rd in 2nd series) 14Admin Note: dose #5 15Admin Note: #3 16Admin Note: LITO sanofi-pasteur 17Admin Note: ADMIN BEN, CURBER 18Admin Note: BY LEXI Agudelo 19Admin Note: [...] tablet, 5 Refills, Maintenance, 01/08/21 18:41:00 EST, [facility] #[id number], 162, cm, 12/17/20 23:19:00 EDT, Height, 86.3, kg, 09/29/20 15:30:00 EDT, Dry Weight Start Date: 01/08/21 Stop Date: 02/07/21 Status: Ordered Albuterol (Eqv-ProAir HFA) 90 mcg/inh inhalation aerosol 2 puffs, Inhalation, Every 4 hours, PRN NEEDED FOR WHEEZING/SHORTNESS OF BREATH, USE WITH SPACERCHAMBER, # 8.5 Gm, 5 Refills, [facility] #[id number], 16, INHALE 2 PUFFS INTO LUNGS EVERY 4 HOURS NEEDED FOR WHEEZING/SHORTNESS OF BREATH. USE... Start Date: 11/13/20 Status: Ordered albuterol 0.083% inhalation solution 3 mL = 2.5 mg, Inhalation, Every 6 hours, PRN Wheezing/Shortness of Breath, # 60 each, 0 Refills, Maintenance, 06/07/20 12:51:00 EDT, Solution, [facility] #[id number], 162.56, cm, 05/23/20 14:31:00 EDT, Height, 77, [...] 2 Refills, Maintenance, 08/30/22 11:09:00 EDT, Gel, [facility] #[id number], 1 applic... Start Date: 08/30/22 Status: Ordered benzoyl peroxide 2.5% topical gel 1 application, Topically, 2 times a day, keep away from eyes and mucous membranes. clean affected area before application. Start daily and increase to twice a day if tolerated., # 60 Gm, 3 Refills, Maintenance, 09/08/22 22:51:00 EDT, [facility]... Start Date: 09/08/22 Status: Ordered Biktarvy oral tablet 1 tablet, By Mouth, Daily, # 30 tablet, 12 Refills, Maintenance, 04/17/22 7:54:00 EST, [facility] #[id number], 1 tablet By Mouth Daily, 162.56, cm, 04/16/22 16:00:00 EST, Height, 87.6, kg, 10/24/21 8:00:00 EDT, Dry Weight Start Date: 04/17/22 Status: Ordered Biktarvy oral tablet See Instructions, TAKE 1 TABLET BY MOUTH DAILY, # 90 tablet, 0 Refills, Maintenance, 07/15/22 13:50:00 EDT, [facility] #[id number], 90, TAKE 1 TABLET BY MOUTH DAILY, [...] 1 Refills, Maintenance, 07/10/21 18:35:00 EDT, Tablet, [facility] #[id number], Partial fill upon patient request if the [...] 08/12/22 15:06:00 EDT, Route to Pharmacy Electronically, [facility] #[id number], 162.56, cm, 07/30/22 10:55:00 EDT, Height, 79.... Start Date: 08/12/22 Status: Ordered Colace Clear 50 mg oral capsule 1 capsule = 50 mg, By Mouth, 2 times a day, PRN as needed for constipation, # 60 capsule, 0 Refills, Maintenance, 12/05/21 15:09:00 EDT, [facility] #[id number], Partial fill upon patient requestif the prescription is for a schedule II opioid nhi... Start Date: 12/05/21 Status: Ordered diclofenac 1% topical gel = 2 Gm, Topically, 4 times a day, PRN for pain, not to exceed: 10 gm/day, # 100 Gm, 1 Refills, Maintenance, 05/29/21 16:52:00 EDT, Gel, [facility], Partial fill upon patient request if the prescription is for a schedule II opioid... Start Date: 05/29/21 Status: Ordered Dulera 200 mcg-5 mcg/inh inhalation aerosol 2 puffs, Inhalation, 2 times a day, # 1 each, 3 Refills, Maintenance, 01/28/21 16:44:00 EST, Aerosol, [facility], STOP FLOVENT, 2 puffs Inhalation 2 times a day,x30 days, 162, cm,01/28/21 16:02:00 EST, Height, 86.3, kg, 09/29/20 1... Start Date: 01/28/21 Stop Date: 05/28/21 Status: Ordered escitalopram 20 mg oral tablet 1 tablet = 20 mg, By Mouth, Daily, # 90 tablet, 0 Refills, Maintenance, 07/30/22 12:03:00 EDT, Tablet, [facility] #[id number], Partial fill upon patient request if the prescription is for a schedule II opioid drug., 162.56, cm, 07/30/22 10:55:00... Start Date: 07/30/22 Status: Ordered ferrous fumarate 324 mg oral tablet 1 tablet = 324 mg, By Mouth, Every other day, # 45 tablet, 0 Refills, Maintenance, 07/31/22 11:19:00 EDT, Tablet, [facility] #[id number], Partial fill upon patient request if the [...] Gm, 5 Refills, Maintenance, 07/19/19 15:19:00 EDT, [place], [facility] #42922, 2 sprays Nares, Both Daily in AM,x30 [...] 09/24/22 17:20:00 EDT, Route to Pharmacy Electronically, [facility] #[id number], 162.56, cm, 09/17/22 12:56:00 EDT, [place]... Start [...] Instructions, # 1 each, Maintenance, covering for [facility] Blood pressure monitor neededto [...] 2 Refills, Maintenance, 07/30/22 12:17:00 EDT, Syrup, [facility] #[id number], 30 mL By Mouth 4 times a day, 162.56, cm, 07/30/22 10:55:00 EDT,Height, 79.54, kg, 07/30/22 10:55:00 EDT, Dry Weight Start Date: 07/30/22 Status: Ordered losartan 100 mg oral tablet 1 tablet, By Mouth, Daily, # 30 tablet, 5 Refills, [facility] #[id number], 162, cm, 10/09/21 16:19:00 EDT, Height, 86.3, kg, 09/29/20 15:30:00 EDT, Dry Weight Start Date: 10/20/21 Status: Ordered meclizine 25 mg oral tablet 1 tablet = 25 mg, By Mouth, 2 times a day, # 30 tablet, 1 Refills, Maintenance, 07/10/21 17:25:00 EDT, Tablet, [facility] #[id number], 162, cm, 06/19/21 15:40:00 EDT, Height, 86.3, kg, 09/29/20 15:30:00 EDT, Dry Weight Start Date: 07/10/21 Status: Ordered multivitamin with iron Multiple Vitamins with Iron oral tablet 1 tablet, By Mouth, Daily, # 30 tablet, 11 Refills, Maintenance, 04/17/22 7:51:00 EST, Tablet, [facility] #52714, 1 tablet By Mouth Daily, 162.56, cm, 04/16/22 16:00:00 EST, Height, 87.6, kg, 10/24/21 8:00:00 EDT, Dry Weight Start Date: 04/17/22 Status: Ordered Narcan 4 mg/0.1 mL nasal spray = 4 mg, Inhalation, Once, # 2 each, 1 Refills, Soft Stop, 10/29/20 12:23:00 EDT, [facility] #[id number], Partial fill upon patient request if the prescription is for a schedule II opioid drug., 162, cm, 09/29/20 15:30:00 EDT, Height, 86.3, kg, 08... Start Date: 10/29/20 Status: Ordered ondansetron 4 mg oral tablet 1 tablet = 4 mg, By Mouth, Daily, PRN Nausea & Vomiting, # 10 tablet, 3 Refills, Maintenance, 06/25/22 17:28:00 EDT, [facility] #[id number], 162.56, cm, 06/25/22 16:16:00 EDT, Height, 87.6, [...] 2 Refills, Maintenance, 08/21/22 17:50:00 EDT, Tablet, [facility] #53681, this is correct dose. 200mg Rx just sent by mistake., 162.56, cm, 08/20/22 13:54:00 EDT, Height, 79.54, kg, 06... Start Date: 08/21/22 Status: Ordered Senna 8.6 mg oral tablet 1-3 tablet, By Mouth, Daily, for constipation, # 90 tablet, Refills 5, Tot. Refills 5, Maintenance,03/26/20 15:25:00 EST, Route to Pharmacy Electronically, [facility] #[id number] Tablet, 162.56, cm, 03/21/20 15:01:00 EST, Height, [...] 09/24/22 17:20:00 EDT, Route to Pharmacy Electronically, [facility] #[id number], 162.56, cm, 09/17/22 12:56:00 EDT, [facility]... Start Date: 09/24/22 Status: Ordered Suboxone 8 mg-2 mg Sublingual Film 2 film, Sublingual, Daily, [id number] [place] dissolve under the tongue may fill less due 10/26/2022,# 28 film, 0 Refills, Maintenance, 10/15/22 16:24:00 EDT, Film, [facility], 2 film Sublingual Daily,x14 days,Instr:[id number] Li... Start Date: 10/15/22 Stop Date: 10/29/22 Status: Ordered SUMAtriptan 25 mg oral tablet 1 tablet = 25 mg, By Mouth, Daily, PRN as needed for migraine headache, may repeat dose after 2 hours up to a maximum of 2, # 6 tablet, 1 Refills, Maintenance, 03/02/20 19:47:00 EST, Tablet, [facility] #[id number], 162.56, cm, 01/04/20 9:40:00 ES... 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 2genotype 02/02: [id number] is only mutation detected 3death of sister, caring for mother w/ dementia 4repeat screening colonoscopy in 2020 Social History Social History Type Response Smoking Status Former smoker, quit more than 30 days ago entered on: 12/05/21 Sex Patient Care team information Care Team Personnel Name: Kahlil Sun MD Position: [facility] Physician - Primary Care Member Role: PCP Address: Address: [address] [place] [address] Name: Sharri Prince Position: [facility] PCO Associate Professional Member Role: Lifetime Consulting Provider Care Team Related Persons Name: SHNAITA MENDOZA Address: home [address] [place] [id number] Name: SHANITA MENDOZA Address: home [id number] Name: ULICES PEARSON Name: ULICES ESPARZA Address: [place] [address] Name: LALA LI
--- OUTSIDE RECORDS SUMMARY | 2022-12-13 21:30 | XMS_ITS | Continuity of Care Document ---
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 2Result Comment: #2, [facility] 3Result Comment: [facility] 4Result Comment: pharmacy 5Location History: [facility] 6Admin Note: vis 08/31/11 7Admin Note: ADMIN.BY RN 8Result Comment: [facility] 9Admin Note: Admin. by RN 10Admin Note: Admin. by RN 11Admin Note: Admin. 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 USE... Start Date: 11/13/20 Status: Ordered albuterol 0.083% inhalation solution 3 mL = 2.5 mg, Inhalation, Every 6 hours, PRN Wheezing/Shortness of Breath, # 60 each, 0 Refills, Maintenance, 06/07/20 12:51:00 EDT, Solution, [facility] #[id number], 162.56, cm, 05/23/20 14:31:00 EDT, Height, 77, [...] tablet, 12 Refills, Maintenance, 04/17/22 7:54:00 EST, [facility] #[id number], 1 tablet By Mouth Daily, 162.56, cm, 04/16/22 16:00:00 EST, Height, 87.6, kg, 10/24/21 8:00:00 EDT, Dry Weight Start Date: 04/17/22 Status: Ordered Biktarvy oral tablet See Instructions, TAKE 1 TABLET BY MOUTH DAILY, # 90 tablet, 0 Refills, Maintenance, 07/15/22 13:50:00 EDT, [facility] #[id number], 90, TAKE 1 TABLET BY MOUTH DAILY, [...] 1 Refills, Maintenance, 07/10/21 18:35:00 EDT, Tablet, [facility] #[id number], Partial fill upon patient request if the prescription is for a schedule II opioid drug., 162, cm, 06/19/21 15:40:00 EDT... Start Date: 07/10/21 Status: Ordered cloNIDine 0.1 mg oral tablet 1, tablet, By Mouth, 3 times a day, PRN, # 270 tablet, Refills 0, Tot. Refills 0, Maintenance, NEEDED FOR ANXIETY, 05/13/22 16:45:00 EDT, Route to Pharmacy Electronically, [facility] #[id number], 162.56, cm, 05/07/22 12:32:00 EST, Height, 87.6... Start Date: 05/13/22 Status: Ordered Colace Clear 50 mg oral capsule 1 capsule = 50 mg, By Mouth, 2 times a day, PRN as needed for constipation, # 60 capsule, 0 Refills, Maintenance, 12/05/21 15:09:00 EDT, [facility] #[id number], Partial fill upon patient requestif the prescription is for a schedule II opioid nhi... Start Date: 12/05/21 Status: Ordered diclofenac 1% topical gel = 2 Gm, Topically, 4 times a day, PRN for pain, not to exceed: 10 gm/day, # 100 Gm, 1 Refills, Maintenance, 05/29/21 16:52:00 EDT, Gel, [facility], Partial fill upon patient request if the prescription is for a schedule II opioid... Start Date: 05/29/21 Status: Ordered Dulera 200 mcg-5 mcg/inh inhalation aerosol 2 puffs, Inhalation, 2 times a day, # 1 each, 3 Refills, Maintenance, 01/28/21 16:44:00 EST, Aerosol, [facility], STOP FLOVENT, 2 puffs Inhalation 2 times a day,x30 days, 162, cm,01/28/21 16:02:00 EST, Height, 86.3, kg, 09/29/20 1... Start Date: 01/28/21 Stop Date: 05/28/21 Status: Ordered escitalopram 10 mg oral tablet 1 tablet = 10 mg, By Mouth, Daily, # 30 tablet, 11 Refills, Maintenance, 04/16/22 16:59:00 EST, Tablet, [facility] #[id number], Partial fill upon patient request if the [...] Gm, 5 Refills, Maintenance, 07/19/19 15:19:00 EDT, [place], [facility] #[id number], 2 sprays Nares, Both Daily in AM,x30 [...] Replace Required Details, Route to Pharmacy Electronically, [facility] #[id number], 162.56, cm,... Start Date: 11/27/21 Status: Ordered [...] 2 Refills, Maintenance, 06/25/22 18:17:00 EDT, Syrup, [facility] #[id number], 30 mL By Mouth 2 times a day, 162.56, cm, 06/25/22 16:16:00 EDT,Height, 87.6, kg, 10/24/21 8:00:00 EDT, Dry Weight Start Date: 06/25/22 Status: Ordered losartan 100 mg oral tablet 1 tablet, By Mouth, Daily, # 30 tablet, 5 Refills, [facility] #57758, 162, cm, 10/09/21 16:19:00 EDT, Height, 86.3, kg, 09/29/20 15:30:00 EDT, Dry Weight Start Date: 10/20/21 Status: Ordered meclizine 25 mg oral tablet 1 tablet = 25 mg, By Mouth, 2 times a day, # 30 tablet, 1 Refills, Maintenance, 07/10/21 17:25:00 EDT, Tablet, [facility] #39501, 162, cm, 06/19/21 15:40:00 EDT, Height, 86.3, kg, 09/29/20 15:30:00 EDT, Dry Weight Start Date: 07/10/21 Status: Ordered multivitamin with iron Multiple Vitamins with Iron oral tablet 1 tablet, By Mouth, Daily, # 30 tablet, 11 Refills, Maintenance, 04/17/22 7:51:00 EST, Tablet, [facility] #[id number], 1 tablet By Mouth Daily, 162.56, cm, 04/16/22 16:00:00 EST, Height, 87.6, kg, 10/24/21 8:00:00 EDT, Dry Weight Start Date: 04/17/22 Status: Ordered Narcan 4 mg/0.1 mL nasal spray = 4 mg, Inhalation, Once, # 2 each, 1 Refills, Soft Stop, 10/29/20 12:23:00 EDT, [facility] #[id number], Partial fill upon patient request if the prescription is for a schedule II opioid drug., 162, cm, 09/29/20 15:30:00 EDT, Height, 86.3, kg, 08... Start Date: 10/29/20 Status: Ordered ondansetron 4 mg oral tablet 1 tablet = 4 mg, By Mouth, Daily, PRN Nausea & Vomiting, # 10 tablet, 3 Refills, Maintenance, 06/25/22 17:28:00 EDT, [facility] #[id number], 162.56, cm, 06/25/22 16:16:00 EDT, Height, 87.6, [...] each, 0 Refills, Maintenance, 06/04/20 16:46:00 EDT, [facility] #[id number], OK to sub for any gallon prep, used as directed, 162.56, cm, 05/23/20 14:31:00 EDT, Height, 77, kg, 03/21/20 15:04:00 EST, Dry We... Start Date: 06/04/20 Status: Ordered Senna 8.6 mg oral tablet 1-3 tablet, By Mouth, Daily, for constipation, # 90 tablet, Refills 5, Tot. Refills 5, Maintenance,03/26/20 15:25:00 EST, Route to Pharmacy Electronically, [facility] #[id number] Tablet, 162.56, cm, 03/21/20 15:01:00 EST, Height, [...] tablet, 5 Refills, Maintenance, 04/17/22 7:53:00 EST, [facility] #[id number], 162.56, cm, 04/16/22 16:00:00 EST, Height, 87.6, kg, 10/24/21 8:00:00 EDT, Dry Weight Start Date: 04/17/22 Status: Ordered Suboxone 8 mg-2 mg Sublingual Film 2 film, Sublingual, Daily, [id number] [place] dissolve under the tongue may fill less due 07/21/2022,# 18 film, 0 Refills, Maintenance, 07/21/22 8:28:00 EDT, Film, [facility], 2 film Sublingual Daily,x9 days,Instr:[id number] [place]... Start Date: 07/21/22 Stop Date: 07/30/22 Status: Ordered SUMAtriptan 25 mg oral tablet 1 tablet = 25 mg, By Mouth, Daily, PRN as needed for migraine headache, may repeat dose after 2 hours up to a maximum of 2, # 6 tablet, 1 Refills, Maintenance, 03/02/20 19:47:00 EST, Tablet, [facility] #[id number], 162.56, cm, 01/04/20 9:40:00 ES... 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 2genotype 02/02: [id number] is only mutation detected 3death of sister, caring for mother w/ dementia 4repeat screening colonoscopy in 2020 Social History Social History Type Response Smoking Status Former smoker, quit more than 30 days ago entered on: 12/05/21 Sex Patient Care team information Care Team Personnel Name: Kahlil Sun MD Position: [facility] Physician - Primary Care Member Role: PCP Address: Address: [address] [place] [address] Name: Sharri Prince Position: [facility] PCO Associate Professional Member Role: Lifetime Consulting Provider Care Team Related Persons Name: SHANITA MENDOZA Address: [address] [place] [address] Name: SHANITA MENDOZA Address: home [id number] Name: ULICES PEARSON Name: ULICES ESPARZA Address: [place] [address] Name: LALA LI
--- OUTSIDE RECORDS SUMMARY | 2022-12-13 21:30 | XMS_ITS | Continuity of Care Document ---
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 Start Date: 06/07/19 Status: Ordered Bactrim 400 mg-80 mg oral tablet 1 tablet, By Mouth, 2 times a day, # 14 tablet, 0 Refills, Acute 12/09/19 15:46:00 EDT, 06/13/19 15:46:00 EDT, Tablet, [facility] #[id number], 1 tablet By Mouth 2 times a day, 162.56, cm, 05/03/19 16:30:00 EST, Height, 72.3, kg, 09/26/18 16:01:00... Start Date: 06/13/19 Stop Date: 12/09/19 Status: Ordered Biktarvy oral tablet 1 tablet, By Mouth, Daily, # 30 tablet, 11 Refills, Maintenance, 06/29/19 16:26:00 EDT, [facility] #[id number], 1 tablet By Mouth Daily, 162.56, cm, 05/03/19 16:30:00 EST, Height, 72.3, kg, 09/26/18 16:01:00 EDT, Dry Weight Start Date: 06/29/19 Status: Ordered Blood Pressure Meter Blood Pressure Meter, See Instructions, # 1 each, Refills 0, Tot. Refills 0, Maintenance, Use for, 07/11/18 16:11:47 EDT, Compound Start Date: 07/11/18 Status: Ordered buprenorphine-naloxone 2 mg-0.5 mg sublingual film 0.25 each, Sublingual, Daily, Dino [id number], # 4 film, 0 Refills, Maintenance, 10/10/19 21:39:00 EDT, [facility] #[id number], Partial fill on request., 0.25 each Sublingual Daily,Instr:Worth [id number], 162.56, cm, 10/09/19 10:36:00 EDT, Hei... Start Date: 10/10/19 Status: Ordered cetirizine 10 mg oral tablet 1 tablet = 10 mg, By Mouth, Daily, For allergies., # 30 tablet, 2 Refills, Maintenance, 06/29/19 16:02:00 EDT, Tablet, [facility] #[id number], 162.56, cm, 05/03/19 16:30:00 EST, Height, 72.3, kg, 09/26/18 16:01:00 EDT, Dry Weight Start Date: 06/29/19 Status: Ordered cloNIDine 0.1 mg oral tablet 0.1 mg, 1, tablet, By Mouth, 3 times a day, as needed for anxiety, # 25 tablet, Refills 0, Tot. Refills 0, Maintenance, 10/10/19 21:36:00 EDT, Route to Pharmacy Electronically, [facility] #[id number], 162.56, cm, 10/09/19 10:36:00 EDT, Height, 72... [...] Gm, 5 Refills, Maintenance, 07/19/19 15:19:00 EDT, [place], [facility] #[id number], 2 sprays Nares, Both Daily in AM,x30 days, 162.56, cm, 05/03/19 16:30:00 EST, Height, 72.3, kg, 09/26/18 16:01:00 EDT, Dry... Start Date: 07/19/19 Stop Date: 01/15/20 Status: Ordered Flovent HFA 44 mcg/inh inhalation aerosol 1 puffs, Inhalation, 2 times a day, # 1 each, 5 Refills, Maintenance, 06/29/19 16:26:00 EDT, Aerosol, [facility] #[id number], 162.56, cm, 05/03/19 16:30:00 EST, Height, 72.3, [...] 5 Refills, Maintenance, 09/11/19 10:29:00 EDT, Tablet, [facility] #[id number], 30 day supply preferred for present, 162.56, [...] 05/12/18 14:45:33 EDT, Route to Pharmacy Electronically, [id number], [facility] Start Date: 05/12/18 Status: Ordered LORazepam 0.5 mg oral tablet 0.5 tablet = 0.25 mg, By Mouth, 2 times a day, PRN as needed for anxiety, # 20 tablet, 1 Refills, Maintenance, 05/16/19 23:11:00 EDT, Tablet, [facility] #[id number], 162.56, cm, 05/03/19 16:30:00 EST, Height, 72.3, kg, 09/26/18 16:01:00 EDT, Dry... Start Date: 05/16/19 Status: Ordered losartan 100 mg oral tablet 1 tablet = 100 mg, By Mouth, Daily, # 30 tablet, 11 Refills, Maintenance, 06/29/19 15:59:00 EDT, Tablet, [facility] #[id number], 162.56, cm, 05/03/19 16:30:00 EST, Height, 72.3, kg, 09/26/18 16:01:00 EDT, Dry Weight Start Date: 06/29/19 Status: Ordered meclizine 25 mg oral tablet 1 tablet = 25 mg, By Mouth, 2 times a day, # 30 tablet, 1 Refills, Maintenance, 03/30/19 15:49:00 EST, Tablet, [facility] #[id number], 162.56, cm, 03/08/19 14:34:00 EST, Height, 72.3, kg, 09/26/18 16:01:00 EDT, Dry Weight Start Date: 03/30/19 Status: Ordered pantoprazole 20 mg oral delayed release tablet 1 tablet = 20 mg, By Mouth, Daily in AM, take 30 minutes before first meal, # 30 tablet, 2 Refills,Maintenance, 08/17/19 7:40:00 EDT, CR Tablet, 162.56, cm, 05/03/19 16:30:00 EST, Height, 72.3, kg, 09/26/18 16:01:00 EDT, Dry Weight Start Date: 08/17/19 Status: Ordered ProAir HFA 90 mcg/inh inhalation aerosol with adapter 2, puffs, Inhalation, Every 4 hours, PRN, use with spacer chamber, # 1 each, Refills 0, Tot. Refills 0, Maintenance, 06/07/19 15:00:00 EDT, Aerosol, Route to Pharmacy Electronically, [id number], [facility] #[id number], 1... Start Date: 06/07/19 Status: Ordered Senna 8.6 mg oral tablet 1-3 tablet, By Mouth, Daily, for constipation, # 90 tablet, Refills 5, Tot. Refills 5, Maintenance,02/17/18 15:12:45 EST, Route to Pharmacy Electronically, [id number], [facility] Tablet Start Date: 02/17/18 Status: Ordered Spacer for inhalers Spacer for inhalers, See Instructions, # 1 each, Refills 0, Tot. Refills 0, Maintenance, Use with inhalers as directed. Libyan., 06/07/19 15:07:00 EDT, Compound, 162.56, cm, 05/03/19 16:30:00 EST, Height, 72.3, kg, 09/26/18 16:01:00 EDT, Dry Weight Start Date: 06/07/19 Status: Ordered SUMAtriptan 25 mg oral tablet 1 tablet = 25 mg, By Mouth, Daily, PRN as needed for migraine headache, may repeat dose after 2 hours up to a maximum of 2, # 6 tablet, 1 Refills, Maintenance, 04/18/19 13:31:00 EST, Tablet, [facility] #[id number], 162.56, cm, 03/08/19 14:34:00 E... Start Date: 04/18/19 Status: Ordered Zofran 4 mg oral tablet 1 tablet = 4 mg, By Mouth, 2 times a day, PRN Nausea & Vomiting, # 10 tablet, 0 Refills, Maintenance, 10/13/19 12:33:00 EDT, Tablet, [facility] #[id number], 162.56, cm, 10/09/19 10:36:00 EDT, Height, 72.3, kg, 09/26/18 16:01:00 EDT, Dry Weight Start Date: 10/13/19 Status: Ordered zolpidem 5 mg oral tablet [...] 2016 Active Migraine(Confirmed) Active Opioid dependence(Confirmed) Active *[phone] Care Partn er April Saavedra(Confirmed) Active Health [...] tolerance, and QD need over. 2genotype 02/02: [id number] is only mutation detected 3death of sister, caring for mother w/ dementia 4repeat screening colonoscopy in 2020 Social History Social History Type Response Smoking Status Former smoker, quit more than 30 days ago entered on: 05/24/18 Sex
--- OUTSIDE RECORDS SUMMARY | 2022-12-13 21:30 | XMS_ITS | Continuity of Care Document ---
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 by RN 10Admin Note: Admin. by RN 11Admin Note: Admin. 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 Start Date: 12/05/21 Status: Ordered acyclovir 400 mg oral tablet 1 tablet = 400 mg, By Mouth, 2 times a day, # 10 tablet, 5 Refills, Maintenance, 01/08/21 18:41:00 EST, [facility] #[id number], 162, cm, 12/17/20 23:19:00 EDT, Height, 86.3, kg, 09/29/20 15:30:00 EDT, Dry Weight Start Date: 01/08/21 Stop Date: 02/07/21 Status: Ordered Albuterol (Eqv-ProAir HFA) 90 mcg/inh inhalation aerosol 2 puffs, Inhalation, Every 4 hours, PRN NEEDED FOR WHEEZING/SHORTNESS OF BREATH, USE WITH SPACERCHAMBER, # 8.5 Gm, 5 Refills, [facility] #81888, 16, INHALE 2 PUFFS INTO LUNGS EVERY 4 HOURS NEEDED FOR WHEEZING/SHORTNESS OF BREATH. USE... Start Date: 11/13/20 Status: Ordered albuterol 0.083% inhalation solution 3 mL = 2.5 mg, Inhalation, Every 6 hours, PRN Wheezing/Shortness of Breath, # 60 each, 0 Refills, Maintenance, 06/07/20 12:51:00 EDT, Solution, [facility] #[id number], 162.56, cm, 05/23/20 14:31:00 EDT, Height, 77, [...] 01/04/22 19:11:00 EST, Route to Pharmacy Electronically, [facility] #[id number], 162.56, cm, 11/0... Start Date: 01/04/22 Status: Ordered Biktarvy oral tablet 1 tablet, By Mouth, Daily, # 90 tablet, 3 Refills, Maintenance, 06/13/21 22:19:00 EDT, [facility] #[id number], 1 tablet By Mouth Daily, 162, cm, [...] 1 Refills, Maintenance, 07/10/21 18:35:00 EDT, Tablet, [facility] #[id number], Partial fill upon patient request if the prescription is for a schedule II opioid drug., 162, cm, 06/19/21 15:40:00 EDT... Start Date: 07/10/21 Status: Ordered cloNIDine 0.1 mg oral tablet 1, tablet, By Mouth, 3 times a day, PRN, # 270 tablet, Refills 0, Maintenance, NEEDED FOR ANXIETY, 01/01/22 10:42:00 EDT, Route to Pharmacy Electronically, [facility] #[id number], 162.56, cm,12/05/21 14:12:00 EDT, Height, 87.6, kg, 10/24/21 8... Start Date: 01/01/22 Status: Ordered Colace Clear 50 mg oral capsule 1 capsule = 50 mg, By Mouth, 2 times a day, PRN as needed for constipation, # 60 capsule, 0 Refills, Maintenance, 12/05/21 15:09:00 EDT, [facility] #[id number], Partial fill upon patient requestif the prescription is for a schedule II opioid nhi... Start Date: 12/05/21 Status: Ordered diclofenac 1% topical gel = 2 Gm, Topically, 4 times a day, PRN for pain, not to exceed: 10 gm/day, # 100 Gm, 1 Refills, Maintenance, 05/29/21 16:52:00 EDT, Gel, [facility], Partial fill upon patient request if the prescription is for a schedule II opioid... Start Date: 05/29/21 Status: Ordered Dulera 200 mcg-5 mcg/inh inhalation aerosol 2 puffs, Inhalation, 2 times a day, # 1 each, 3 Refills, Maintenance, 01/28/21 16:44:00 EST, Aerosol, [facility], STOP FLOVENT, 2 puffs Inhalation 2 times a day,x30 days, 162, cm,01/28/21 16:02:00 EST, Height, 86.3, kg, 09/29/20 1... Start Date: 01/28/21 Stop Date: 05/28/21 Status: Ordered escitalopram 10 mg oral tablet 1 tablet = 10 mg, By Mouth, Daily, # 30 tablet, 11 Refills, Maintenance, 07/31/21 17:50:00 EDT, Tablet, [facility] #[id number], Partial fill upon patient request if the [...] Gm, 5 Refills, Maintenance, 07/19/19 15:19:00 EDT, [place], [facility] #[id number], 2 sprays Nares, Both Daily in AM,x30 [...] Replace Required Details, Route to Pharmacy Electronically, [facility] #[id number], 162.56, cm,... Start Date: 11/27/21 Status: Ordered [...] Instructions, # 1 each, Maintenance, covering for [facility] Blood pressure monitor neededto monitor blood pressure DX: hypertension, 07/11/18 17:28:42 EDT, Compound Start Date: 07/11/18 Status: Ordered humidifier humidifier, See Instructions, # 1 each, Refills 0, Tot. Refills 0, Maintenance, use as directed forchronic sinusitis J32, 04/09/17 14:21:37 EST, Compound Start Date: 04/09/17 Status: Ordered losartan 100 mg oral tablet 1 tablet, By Mouth, Daily, # 30 tablet, 5 Refills, [facility] #[id number], 162, cm, 10/09/21 16:19:00 EDT, Height, 86.3, kg, 09/29/20 15:30:00 EDT, Dry Weight Start Date: 10/20/21 Status: Ordered meclizine 25 mg oral tablet 1 tablet = 25 mg, By Mouth, 2 times a day, # 30 tablet, 1 Refills, Maintenance, 07/10/21 17:25:00 EDT, Tablet, [facility] #[id number], 162, cm, 06/19/21 15:40:00 EDT, Height, 86.3, kg, 09/29/20 15:30:00 EDT, Dry Weight Start Date: 07/10/21 Status: Ordered multivitamin with iron Multiple Vitamins with Iron oral tablet 1 tablet, By Mouth, Daily, # 30 tablet, 11 Refills, Maintenance, 09/06/21 19:08:00 EDT, Tablet, [facility] #[id number], 1 tablet By Mouth Daily, 162, cm, 07/31/21 16:00:00 EDT, Height, 86.3, kg,09/29/20 15:30:00 EDT, Dry Weight Start Date: 09/06/21 Status: Ordered Narcan 4 mg/0.1 mL nasal spray = 4 mg, Inhalation, Once, # 2 each, 1 Refills, Soft Stop, 10/29/20 12:23:00 EDT, [facility] #[id number], Partial fill upon patient request if the prescription is for a schedule II opioid drug., 162, cm, 09/29/20 15:30:00 EDT, Height, 86.3, kg, 08... Start Date: 10/29/20 Status: Ordered ondansetron 4 mg oral tablet 1 tablet = 4 mg, By Mouth, Daily, PRN Nausea & Vomiting, # 10 tablet, 3 Refills, Maintenance, 10/08/21 22:17:00 EDT, [facility] #[id number], 162, cm, 10/09/21 16:19:00 EDT, Height, 86.3, [...] each, 0 Refills, Maintenance, 06/04/20 16:46:00 EDT, [facility] #[id number], OK to sub for any gallon prep, used as directed, 162.56, cm, 05/23/20 14:31:00 EDT, Height, 77, kg, 03/21/20 15:04:00 EST, Dry We... Start Date: 06/04/20 Status: Ordered Senna 8.6 mg oral tablet 1-3 tablet, By Mouth, Daily, for constipation, # 90 tablet, Refills 5, Tot. Refills 5, Maintenance,03/26/20 15:25:00 EST, Route to Pharmacy Electronically, [facility] #[id number] Tablet, 162.56, cm, 03/21/20 15:01:00 EST, Height, [...] tablet, 2 Refills, Maintenance, 12/23/21 16:29:00 EDT, [facility] #[id number], 162.56, cm, 12/05/21 14:12:00 EDT, Height, 87.6, kg, 10/24/21 8:00:00 EDT, Dry Weight Start Date: 12/23/21 Status: Ordered Suboxone 8 mg-2 mg Sublingual Film 2.5 film, Sublingual, Daily, dissolve under the tongue may fill less due 01/30/2022 Scavron [id number] [address] Sun [id number], # 70 film, 0 Refills, Maintenance, 01/30/22 11:01:00 EST, Film, [facility], 2.5 film Subling... Start Date: 01/30/22 Stop Date: 02/27/22 Status: Ordered Suboxone 8 mg-2 mg Sublingual Film 2.5 film, Sublingual, Daily, dissolve under the tongue increase in dose Iveth [id number] coveringfor Dino due on/after 08/22/2021, # 35 film, 0 Refills, Maintenance, 08/22/21 9:27:00 EDT, Film,[facility], 2.5 film Subli... Start Date: 08/22/21 Stop Date: 09/05/21 Status: Ordered SUMAtriptan 25 mg oral tablet 1 tablet = 25 mg, By Mouth, Daily, PRN as needed for migraine headache, may repeat dose after 2 hours up to a maximum of 2, # 6 tablet, 1 Refills, Maintenance, 03/02/20 19:47:00 EST, Tablet, [facility] #[id number], 162.56, cm, 01/04/20 9:40:00 ES... Start Date: 03/02/20 Status: Ordered zolpidem 5 mg oral tablet 1 tablet = 5 mg, By Mouth, Daily at bedtime, PRN as needed for sleep, covering for Dr. 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 3death of sister, caring for mother w/ dementia 4repeat screening colonoscopy in 2020 Social History Social History Type Response Smoking Status Former smoker, quit more than 30 days ago entered on: 12/05/21 Sex Patient Care team information Care Team Personnel Name: Kahlil Sun MD Position: [facility] Primary Care Physician Member Role: PCP Address: Address: [address] [place] [address] Name: Sharri Prince Position: [facility] PCO Associate Professional Member Role: Lifetime Consulting Provider Care Team Related Persons Name: SHANITA MENDOZA Address: home [address] [place] [address] Name: SHANITA MENDOZA Address: home [address] Name: ULICES PEARSON Name: ULICES ESPARZA Address: [place] [address] Name: LALA LI
--- OUTSIDE RECORDS SUMMARY | 2022-12-13 21:30 | XMS_ITS | Continuity of Care Document ---
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 2Result Comment: #2, [facility] 3Result Comment: [facility] 4Result Comment: pharmacy 5Location History: [facility] 6Admin Note: vis 08/31/11 7Admin Note: ADMIN.BY RN 8Result Comment: [facility] 9Admin Note: Admin. by RN 10Admin Note: Admin. by RN 11Admin Note: Admin. 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 Start Date: 09/12/20 Status: Ordered acyclovir 400 mg oral tablet 1 tablet = 400 mg, By Mouth, 2 times a day, # 10 tablet, 5 Refills, Maintenance, 01/08/21 18:41:00 EST, [facility] #49642, 162, cm, 12/17/20 23:19:00 EDT, Height, 86.3, kg, 09/29/20 15:30:00 EDT, Dry Weight Start Date: 01/08/21 Stop Date: 02/07/21 Status: Ordered Albuterol (Eqv-ProAir HFA) 90 mcg/inh inhalation aerosol 2 puffs, Inhalation, Every 4 hours, PRN NEEDED FOR WHEEZING/SHORTNESS OF BREATH, USE WITH SPACERCHAMBER, # 8.5 Gm, 5 Refills, [facility] #03737, 16, INHALE 2 PUFFS INTO LUNGS EVERY 4 HOURS NEEDED FOR WHEEZING/SHORTNESS OF BREATH. USE... Start Date: 11/13/20 Status: Ordered albuterol 0.083% inhalation solution 3 mL = 2.5 mg, Inhalation, Every 6 hours, PRN Wheezing/Shortness of Breath, # 60 each, 0 Refills, Maintenance, 06/07/20 12:51:00 EDT, Solution, [facility] #94625, 162.56, cm, 05/23/20 14:31:00 EDT, Height, 77, [...] tablet, 3 Refills, Maintenance, 03/02/20 19:50:00 EST, [facility] #52150, 1 tablet By Mouth Daily, 162.56, cm, [...] 2 Refills, Maintenance, 06/29/19 16:02:00 EDT, Tablet, [facility] #55135, 162.56, cm, 05/03/19 16:30:00 EST, Height, 72.3, kg, 09/26/18 16:01:00 EDT, Dry Weight Start Date: 06/29/19 Status: Ordered cloNIDine 0.1 mg oral tablet 0.1 mg, 1, tablet, By Mouth, 3 times a day, as needed for anxiety, # 25 tablet, Refills 0, Tot. Refills 0, Maintenance, 10/10/19 21:36:00 EDT, Route to Pharmacy Electronically, [facility] #94145, 162.56, cm, 10/09/19 10:36:00 EDT, Height, 72... Start Date: 10/10/19 Status: Ordered Dulera 200 mcg-5 mcg/inh inhalation aerosol 2 puffs, Inhalation, 2 times a day, # 1 each, 3 Refills, Maintenance, 01/28/21 16:44:00 EST, Aerosol, [facility], STOP FLOVENT, 2 puffs Inhalation [...] Gm, 5 Refills, Maintenance, 07/19/19 15:19:00 EDT, [place], [facility] #06413, 2 sprays Nares, Both Daily in AM,x30 days, 162.56, cm, 05/03/19 16:30:00 EST, Height, 72.3, kg, 09/26/18 16:01:00 EDT, Dry... Start Date: 07/19/19 Stop Date: 01/15/20 Status: Ordered fluconazole 150 mg oral tablet 1 tablet = 150 mg, By Mouth, Once, # 1 tablet, 1 Refills, Soft Stop, 01/08/21 19:37:00 EST, Tablet,[facility] #96615, 162, cm, 12/17/20 23:19:00 EDT, Height, 86.3, [...] 01/28/21 16:28:00 EST, Route to Pharmacy Electronically, [facility], STOP HCTZ, 162, cm, 01/28/21 16:02:00 [...] # 1 each, Maintenance, covering for [facility] Blood pressure monitor neededto monitor blood pressure [...] 05/12/18 14:45:33 EDT, Route to Pharmacy Electronically, [id number], [facility] Start Date: 05/12/18 Status: Ordered LORazepam 0.5 mg oral tablet 0.5 tablet = 0.25 mg, By Mouth, 2 times a day, PRN as needed for anxiety, # 20 tablet, 1 Refills, Maintenance, 05/16/19 23:11:00 EDT, Tablet, [facility] #11830, 162.56, cm, 05/03/19 16:30:00 EST, Height, 72.3, kg, 09/26/18 16:01:00 EDT, Dry... Start Date: 05/16/19 Status: Ordered losartan 100 mg oral tablet 1 tablet, By Mouth, Daily, # 30 tablet, 5 Refills, Maintenance, 09/24/20 16:00:00 EDT, [facility] #05642, 162, cm, 09/19/20 15:59:00 EDT, Height, 82.1, kg, 06/08/20 17:25:00 EDT, Dry Weight Start Date: 09/24/20 Status: Ordered meclizine 25 mg oral tablet 1 tablet = 25 mg, By Mouth, 2 times a day, # 30 tablet, 1 Refills, Maintenance, 03/30/19 15:49:00 EST, Tablet, [facility] #77567, 162.56, cm, 03/08/19 14:34:00 EST, Height, 72.3, kg, 09/26/18 16:01:00 EDT, Dry Weight Start Date: 03/30/19 Status: Ordered naproxen 500 mg oral tablet 1 tablet = 500 mg, By Mouth, 2 times a day, PRN Pain , Moderate, for 14 days, with food, # 30 each,0 Refills, Acute 04/07/21 19:02:00 EST, 03/24/21 19:02:00 EST, Tablet, [facility] #70948,Partial fill upon patient request if the prescripti... Start Date: 03/24/21 Stop Date: 04/07/21 Status: Ordered Narcan 4 mg/0.1 mL nasal spray = 4 mg, Inhalation, Once, # 2 each, 1 Refills, Soft Stop, 10/29/20 12:23:00 EDT, [facility] #68587, Partial fill upon patient request if the [...] each, 0 Refills, Maintenance, 06/04/20 16:46:00 EDT, [facility] #85532, OK to sub for any gallon prep, used as directed, 162.56, cm, 05/23/20 14:31:00 EDT, Height, 77, kg, 03/21/20 15:04:00 EST, Dry We... Start Date: 06/04/20 Status: Ordered predniSONE 50 mg oral tablet 1 tablet = 50 mg, By Mouth, Daily, # 7 tablet, 0 Refills, Maintenance, 01/28/21 16:37:00 EST, Tablet, [facility], Partial fill upon patient request if the prescription is for a schedule II opioid drug., 162, cm, 01/28/21 16:02:00 E... Start Date: 01/28/21 Stop Date: 02/04/21 Status: Ordered Senna 8.6 mg oral tablet 1-3 tablet, By Mouth, Daily, for constipation, # 90 tablet, Refills 5, Tot. Refills 5, Maintenance,03/26/20 15:25:00 EST, Route to Pharmacy Electronically, [facility] #63778 Tablet, 162.56, cm, 03/21/20 15:01:00 EST, Height, [...] 4 Refills, Maintenance, 01/28/21 16:29:00 EST, Tablet, [facility], STOP HCTZ, 162, cm, 01/28/21 16:02:00 [...] dissolve under the tongue increase in dose [id number] due on/after 04/03/2021, # 35 film, 0 Refills, Maintenance, 03/31/21 17:46:00 EST, Film, [facility], 2.5 film Sublingual Daily,Instr:dissolve und... Start Date: 03/31/21 Status: Ordered SUMAtriptan 25 mg oral tablet 1 tablet = 25 mg, By Mouth, Daily, PRN as needed for migraine headache, may repeat dose after 2 hours up to a maximum of 2, # 6 tablet, 1 Refills, Maintenance, 03/02/20 19:47:00 EST, Tablet, [facility] #48614, 162.56, cm, 01/04/20 9:40:00 ES... Start Date: 03/02/20 Status: Ordered Zofran 4 mg oral tablet 1 tablet = 4 mg, By Mouth, 2 times a day, PRN Nausea & Vomiting, # 10 tablet, 0 Refills, Maintenance, 03/16/21 18:27:00 EST, Tablet, [facility] #34015, 162, cm, 02/11/21 15:27:00 EST, Height, 86.3, kg, 09/29/20 15:30:00 EDT, Dry Weight Start Date: 03/16/21 Status: Ordered zolpidem 5 mg oral tablet [...] Obese class II(Confirmed) Active Opioid dependence(Confirmed) Active *[id number] Care Partn er April Saavedra(Confirmed) Active Health [...] tolerance, and QD need over. 2genotype 02/02: [id number] is only mutation detected 3death of sister, caring for mother w/ dementia 4repeat screening colonoscopy in 2020 Vital Signs Most recent to oldest [Reference Range]: 1 Height 162 cm (03/24/21 6:41 PM) Oxygen Saturation [94-100 %] 99 % (03/24/21 6:41 PM) Blood Pressure [90-138/55-84 mm Hg] 113/ 72mm Hg (03/24/21 6:41 PM) Respiratory Rate [16-30 br/min] 16 br/mi n (03/24/21 6:41 PM) Temperature [96.8-100.4 DegF] 98.7 DegF (03/24/21 6:41 PM) Blood pressure sites Arm, right (03/24/21 6:41 PM) Temperature Route Temporal (03/24/21 6:41 PM) Social History Social History Type Response Smoking Status Former smoker, quit more than 30 days ago entered on: 10/29/20 Sex
--- OUTSIDE RECORDS SUMMARY | 2022-12-13 21:30 | XMS_ITS | Continuity of Care Document ---
Author Name Unknown Organization [facility] Address [address] [place] [address]- Care Team Providers Care Respiratory Manager Name Role Phone Kahlil Sun MD Primary Care Physician Encounter [facility] [place] Date(s): 09/18/22 - 10/31/22 [facility] [address]- Attending Physician: Vida Goldsmith NP Admitting Physician: [...] events reported or observed. 2Result Comment: #2, [facility] 3Result Comment: [facility] 4Result Comment: pharmacy 5Location History: [facility] 6Admin Note: vis 08/31/11 7Admin Note: ADMIN.BY RN 8Result Comment: [facility] 9Admin Note: Admin. by RN 10Admin [...] tablet, 5 Refills, Maintenance, 01/08/21 18:41:00 EST, [facility] #07412, 162, cm, 12/17/20 23:19:00 EDT, Height, 86.3, kg, 09/29/20 15:30:00 EDT, Dry Weight Start Date: 01/08/21 Stop Date: 02/07/21 Status: Ordered Albuterol (Eqv-ProAir HFA) 90 mcg/inh inhalation aerosol 2 puffs, Inhalation, Every 4 hours, PRN NEEDED FOR WHEEZING/SHORTNESS OF BREATH, USE WITH SPACERCHAMBER, # 8.5 Gm, 5 Refills, [facility] #[id number], 16, INHALE 2 PUFFS INTO LUNGS EVERY 4 HOURS NEEDED FOR WHEEZING/SHORTNESS OF BREATH. USE... Start Date: 11/13/20 Status: Ordered albuterol 0.083% inhalation solution 3 mL = 2.5 mg, Inhalation, Every 6 hours, PRN Wheezing/Shortness of Breath, # 60 each, 0 Refills, Maintenance, 06/07/20 12:51:00 EDT, Solution, [facility] #[id number], 162.56, cm, 05/23/20 14:31:00 EDT, Height, 77, [...] 2 Refills, Maintenance, 08/30/22 11:09:00 EDT, Gel, [facility] #11057, 1 applic... Start Date: 08/30/22 Status: Ordered benzoyl peroxide 2.5% topical gel 1 application, Topically, 2 times a day, keep away from eyes and mucous membranes. clean affected area before application. Start daily and increase to twice a day if tolerated., # 60 Gm, 3 Refills, Maintenance, 09/08/22 22:51:00 EDT, [facility]... Start Date: 09/08/22 Status: Ordered Biktarvy oral tablet 1 tablet, By Mouth, Daily, # 30 tablet, 12 Refills, Maintenance, 04/17/22 7:54:00 EST, [facility] #[id number], 1 tablet By Mouth Daily, 162.56, cm, 04/16/22 16:00:00 EST, Height, 87.6, kg, 10/24/21 8:00:00 EDT, Dry Weight Start Date: 04/17/22 Status: Ordered Biktarvy oral tablet See Instructions, TAKE 1 TABLET BY MOUTH DAILY, # 90 tablet, 0 Refills, Maintenance, 07/15/22 13:50:00 EDT, [facility] #[id number], 90, TAKE 1 TABLET BY MOUTH DAILY, [...] 1 Refills, Maintenance, 07/10/21 18:35:00 EDT, Tablet, [facility] #22951, Partial fill upon patient request if the [...] 08/12/22 15:06:00 EDT, Route to Pharmacy Electronically, [facility] #58673, 162.56, cm, 07/30/22 10:55:00 EDT, Height, 79.... Start Date: 08/12/22 Status: Ordered Colace Clear 50 mg oral capsule 1 capsule = 50 mg, By Mouth, 2 times a day, PRN as needed for constipation, # 60 capsule, 0 Refills, Maintenance, 12/05/21 15:09:00 EDT, [facility] #52232, Partial fill upon patient requestif the prescription is for a schedule II opioid nhi... Start Date: 12/05/21 Status: Ordered diclofenac 1% topical gel = 2 Gm, Topically, 4 times a day, PRN for pain, not to exceed: 10 gm/day, # 100 Gm, 1 Refills, Maintenance, 05/29/21 16:52:00 EDT, Gel, [facility], Partial fill upon patient request if the prescription is for a schedule II opioid... Start Date: 05/29/21 Status: Ordered Dulera 200 mcg-5 mcg/inh inhalation aerosol 2 puffs, Inhalation, 2 times a day, # 1 each, 3 Refills, Maintenance, 01/28/21 16:44:00 EST, Aerosol, [facility], STOP FLOVENT, 2 puffs Inhalation 2 times a day,x30 days, 162, cm,01/28/21 16:02:00 EST, Height, 86.3, kg, 09/29/20 1... Start Date: 01/28/21 Stop Date: 05/28/21 Status: Ordered escitalopram 20 mg oral tablet 1 tablet = 20 mg, By Mouth, Daily, # 90 tablet, 0 Refills, Maintenance, 07/30/22 12:03:00 EDT, Tablet, [facility] #01694, Partial fill upon patient request if the prescription is for a schedule II opioid drug., 162.56, cm, 07/30/22 10:55:00... Start Date: 07/30/22 Status: Ordered ferrous fumarate 324 mg oral tablet 1 tablet = 324 mg, By Mouth, Every other day, # 45 tablet, 0 Refills, Maintenance, 07/31/22 11:19:00 EDT, [facility] #[id number], Partial fill upon patient request if the [...] Gm, 5 Refills, Maintenance, 07/19/19 15:19:00 EDT, [place], [facility] #78539, 2 sprays Nares, Both Daily in AM,x30 [...] 09/24/22 17:20:00 EDT, Route to Pharmacy Electronically, [facility] #98708, 162.56, cm, 09/17/22 12:56:00 EDT, Heigh... Start [...] Instructions, # 1 each, Maintenance, covering for [facility] Blood pressure monitor neededto monitor [...] 2 Refills, Maintenance, 07/30/22 12:17:00 EDT, Syrup, [facility] #50020, 30 mL By Mouth 4 times a day, 162.56, cm, 07/30/22 10:55:00 EDT,Height, 79.54, kg, 07/30/22 10:55:00 EDT, Dry Weight Start Date: 07/30/22 Status: Ordered losartan 100 mg oral tablet 1 tablet, By Mouth, Daily, # 30 tablet, 5 Refills, [facility] #81110, 162, cm, 10/09/21 16:19:00 EDT, Height, 86.3, kg, 09/29/20 15:30:00 EDT, Dry Weight Start Date: 10/20/21 Status: Ordered meclizine 25 mg oral tablet 1 tablet = 25 mg, By Mouth, 2 times a day, # 30 tablet, 1 Refills, Maintenance, 07/10/21 17:25:00 EDT, Tablet, [facility] #20935, 162, cm, 06/19/21 15:40:00 EDT, Height, 86.3, kg, 09/29/20 15:30:00 EDT, Dry Weight Start Date: 07/10/21 Status: Ordered multivitamin with iron Multiple Vitamins with Iron oral tablet 1 tablet, By Mouth, Daily, # 30 tablet, 11 Refills, Maintenance, 04/17/22 7:51:00 EST, Tablet, [facility] #93944, 1 tablet By Mouth Daily, 162.56, cm, 04/16/22 16:00:00 EST, Height, 87.6, kg, 10/24/21 8:00:00 EDT, Dry Weight Start Date: 04/17/22 Status: Ordered Narcan 4 mg/0.1 mL nasal spray = 4 mg, Inhalation, Once, # 2 each, 1 Refills, Soft Stop, 10/29/20 12:23:00 EDT, [facility] #84489, Partial fill upon patient request if the prescription is for a schedule II opioid drug., 162, cm, 09/29/20 15:30:00 EDT, Height, 86.3, kg, 08... Start Date: 10/29/20 Status: Ordered ondansetron 4 mg oral tablet 1 tablet = 4 mg, By Mouth, Daily, PRN Nausea & Vomiting, # 10 tablet, 3 Refills, Maintenance, 06/25/22 17:28:00 EDT, [facility] #01569, 162.56, cm, 06/25/22 16:16:00 EDT, Height, 87.6, [...] 2 Refills, Maintenance, 08/21/22 17:50:00 EDT, Tablet, [facility] #20261, this is correct dose. 200mg Rx just sent by mistake., 162.56, cm, 08/20/22 13:54:00 EDT, Height, 79.54, kg, 06... Start Date: 08/21/22 Status: Ordered Senna 8.6 mg oral tablet 1-3 tablet, By Mouth, Daily, for constipation, # 90 tablet, Refills 5, Tot. Refills 5, Maintenance,03/26/20 15:25:00 EST, Route to Pharmacy Electronically, [facility] #78942 Tablet, 162.56, cm, 03/21/20 15:01:00 EST, Height, [...] 09/24/22 17:20:00 EDT, Route to Pharmacy Electronically, [facility] #[id number], 162.56, cm, 09/17/22 12:56:00 EDT, [place]... Start Date: 09/24/22 Status: Ordered Suboxone 8 mg-2 mg Sublingual Film 2 film, Sublingual, Daily, [id number] Dino dissolve under the tongue may fill less due 10/26/2022,# 28 film, 0 Refills, Maintenance, 10/15/22 16:24:00 EDT, Film, [facility], 2 film Sublingual Daily,x14 days,Instr:[id number] Li... Start Date: 10/15/22 Stop Date: 10/29/22 Status: Ordered SUMAtriptan 25 mg oral tablet 1 tablet = 25 mg, By Mouth, Daily, PRN as needed for migraine headache, may repeat dose after 2 hours up to a maximum of 2, # 6 tablet, 1 Refills, Maintenance, 03/02/20 19:47:00 EST, Tablet, [facility] #06298, 162.56, cm, 01/04/20 9:40:00 ES... 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 2genotype 02/02: [id number] is only mutation detected 3death of sister, caring for mother w/ dementia 4repeat screening colonoscopy in 2020 Social History Social History Type Response Smoking Status Former smoker, quit more than 30 days ago entered on: 12/05/21 Sex Patient Care team information Care Team Personnel Name: Kahlil Sun MD Position: [facility] Physician - Primary Care Member Role: PCP Address: Address: [address] [place] [address] Name: Sharri Prince Position: [facility] PCO Associate Professional Member Role: Lifetime Consulting Provider Care Team Related Persons Name: SHANITA MENDOZA Address: home [address] [place] [address] Name: SHANITA MENDOZA BRITTNY Address: home [address] Name: ULICES PEARSON Name: ULICES ESPARZA Address: [place] [address] Name: LALA LI
--- OUTSIDE RECORDS SUMMARY | 2022-12-13 21:30 | XMS_ITS | Continuity of Care Document ---
Author Name Unknown Organization [facility] Address [address] [place] [address]- Care Team Providers Care Cardiac Sonographer Name Role Phone Kahlil Sun MD Primary Care Physician Encounter [facility] [place] Date(s): 04/24/19 - 06/07/19 [facility] [address] [place] [address]- [facility] Attending Physician: Not on Staff, Attending MD Allergies, Adverse Reactions, Alerts Substance Reaction Severity Status aspirin 1 facial edema and sob Severe Active nevirapine Active Ziagen Active Levaquin 2 Active amitriptyline 3 Mental status Active 1facial edema and sob 2itchy, nervous 3dreaming, near halliucinations Immunizations Given and Recorded Vaccine Date Status [...] 0 Refills, Maintenance, 06/07/19 14:59:00 EDT, Solution, [facility] #72457, 162.56, cm, 05/03/19 16:30:00 EST, Height, 72.3, [...] mg sublingual film 0.25 each, Sublingual, Daily, Love [id number], # 4 film, 0 Refills, Maintenance, 05/16/19 23:15:00 EDT, [facility] #[id number], Partial fill on request., 0.25 each Sublingual Daily,Instr:Dino [id number], 162.56, cm, 05/03/19 16:30:00 EST, Hemeron... Start Date: 05/16/19 Status: Ordered cetirizine 10 mg oral tablet 1 tablet = 10 mg, By Mouth, Daily, For allergies., # 30 tablet, 0 Refills, Maintenance, 06/07/19 14:58:00 EDT, Tablet, [facility] #60308, 162.56, cm, 05/03/19 16:30:00 EST, Height, 72.3, kg, 09/26/18 16:01:00 EDT, Dry Weight Start Date: 06/07/19 Status: Ordered Flonase 50 mcg/inh nasal spray 2 sprays, Nares, Both, Daily in AM, # 16 Gm, 0 Refills, Maintenance, 06/07/19 14:55:00 EDT, [place], [facility] #30897, 2 sprays Nares, Both Daily in AM,x30 [...] 2 Refills, Maintenance, 05/29/19 21:12:00 EDT, Tablet, [facility] #[id number], 30 day supply preferred for present, 162.56, [...] 05/12/18 14:45:33 EDT, Route to Pharmacy Electronically, [id number], [facility] Start Date: 05/12/18 Status: Ordered LORazepam 0.5 mg oral tablet 0.5 tablet = 0.25 mg, By Mouth, 2 times a day, PRN as needed for anxiety, # 20 tablet, 1 Refills, Maintenance, 05/16/19 23:11:00 EDT, Tablet, [facility] #57518, 162.56, cm, 05/03/19 16:30:00 EST, Height, 72.3, kg, 09/26/18 16:01:00 EDT, Dry... Start Date: 05/16/19 Status: Ordered losartan 50 mg oral tablet 1 tablet = 50 mg, By Mouth, Daily, # 30 tablet, 5 Refills, Maintenance, 04/28/19 0:32:00 EST, Tablet, [facility] #03058, 162.56, cm, 04/24/19 16:09:00 EST, Height, 72.3, kg, 09/26/18 16:01:00 EDT, Dry Weight Start Date: 04/28/19 Status: Ordered meclizine 25 mg oral tablet 1 tablet = 25 mg, By Mouth, 2 times a day, # 30 tablet, 1 Refills, Maintenance, 03/30/19 15:49:00 EST, Tablet, [facility] #94757, 162.56, cm, 03/08/19 14:34:00 EST, Height, 72.3, [...] Dry Weight Start Date: 02/16/19 Status: Ordered predniSONE 50 mg oral tablet 1 tablet = 50 mg, By Mouth, Daily, for 5 days, For asthma., # 5 tablet, 0 Refills, Acute 06/12/19 15:05:00 EDT, 06/07/19 15:05:00 EDT, [facility] #22463, 162.56, cm, 05/03/19 16:30:00 EST, Height, 72.3, kg, 09/26/18 16:01:00 EDT, Dry Weight Start Date: 06/07/19 Stop Date: 06/12/19 Status: Ordered ProAir HFA 90 mcg/inh inhalation aerosol with adapter 2, puffs, Inhalation, Every 4 hours, PRN, use with spacer chamber, # 1 each, Refills 0, Tot. Refills 0, Maintenance, 06/07/19 15:00:00 EDT, Aerosol, Route to Pharmacy Electronically, [id number], [facility] #[id number], 1... Start Date: 06/07/19 Status: Ordered Senna 8.6 mg oral tablet 1-3 tablet, By Mouth, Daily, for constipation, # 90 tablet, Refills 5, Tot. Refills 5, Maintenance,02/17/18 15:12:45 EST, Route to Pharmacy Electronically, [id number], [facility] Tablet Start Date: 02/17/18 Status: Ordered Spacer for inhalers Spacer for inhalers, See Instructions, # 1 each, Refills 0, Tot. Refills 0, Maintenance, Use with inhalers as directed. Hungarian., 06/07/19 15:07:00 EDT, Compound, 162.56, cm, 05/03/19 16:30:00 EST, Height, 72.3, kg, 09/26/18 16:01:00 EDT, Dry Weight Start Date: 06/07/19 Status: Ordered SUMAtriptan 25 mg oral tablet 1 tablet = 25 mg, By Mouth, Daily, PRN as needed for migraine headache, may repeat dose after 2 hours up to a maximum of 2, # 6 tablet, 1 Refills, Maintenance, 04/18/19 13:31:00 EST, Tablet, [facility] #26365, 162.56, cm, 03/08/19 14:34:00 E... Start Date: 04/18/19 Status: Ordered Zofran 4 mg oral tablet 1 tablet = 4 mg, By Mouth, 2 times a day, PRN Nausea & Vomiting, # 20 tablet, 0 Refills, Maintenance, 05/24/19 22:41:00 EDT, Tablet, [facility] #18675, 162.56, cm, 05/03/19 16:30:00 EST, Height, 72.3, [...] Active H/O nausea(Confirmed) Active Hypertension(Confirmed) Active Insomnia(Confirmed) 2017 Active Migraine(Confirmed) Active Opioid dependence(Confirmed) Active *[id number]-[facility] renee aSavedra(Confirmed) Active Health care maintenance(Confirmed) Active Routine screening [...] tolerance, and QD need over. 2genotype 02/02: [id number] is only mutation detected 3death of sister, caring for mother w/ dementia 4repeat screening colonoscopy in 2020 Social History Social History Type Response Smoking Status Former smoker, quit more than 30 days ago entered on: 05/24/18 Sex
--- OUTSIDE RECORDS SUMMARY | 2022-12-13 21:30 | XMS_ITS | Continuity of Care Document ---
Author Name Unknown Organization [facility] Address [address] [place] [address]- Care Team Providers Care Lehr Loader Name Role Phone Kahlil Sun MD Primary Care Physician Encounter [facility] Date(s): 06/13/20 - 07/13/20 [facility] [address] [place] [address]- Allergies, Adverse Reactions, Alerts Substance Reaction Severity [...] toxoids (Td) 03/10/01 Given 1Result Comment: #2, [facility] 2Result Comment: [facility] 3Result Comment: [facility] 4Result Comment: pharmacy 5Location History: [facility] 6Admin Note: vis 08/31/11 7Admin Note: ADMIN.BY RN 8Admin Note: Admin. by RN 9Admin Note: Admin. by RN 10Admin Note: Admin. by RN 11Admin Note: vis 06/15/15 12Admin Note: dose #6 (3rd in 2nd series) 13Admin Note: dose #5 14Admin Note: #3 15Admin Note: LITO sanofi-pasteur 16Admin Note: ADMIN LILLIAN CONTRERAS 17Admin Note: BY ELXI Agudelo 18Admin Note: not Adacel 19Admin Note: [...] tablet, 5 Refills, Maintenance, 01/26/20 16:20:00 EST, [facility], 162.56, cm, 10/09/19 10:36:00 EDT, Height, 72.3, kg, 09/26/18 16:01:00 EDT, Dry Weight Start Date: 01/26/20 Stop Date: 02/25/20 Status: Ordered albuterol 0.083% inhalation solution 3 mL = 2.5 mg, Inhalation, Every 6 hours, PRN Wheezing/Shortness of Breath, # 60 each, 0 Refills, Maintenance, 06/07/20 12:51:00 EDT, Solution, [facility] #[id number], 162.56, cm, 05/23/20 14:31:00 EDT, Height, 77, [...] tablet, 3 Refills, Maintenance, 03/02/20 19:50:00 EST, [facility] #[id number], 1 tablet By Mouth Daily, 162.56, cm, 01/04/20 9:40:00 EST, Height, 72.3, kg, 09/26/18 16:01:00 EDT, Dry Weight Start Date: 03/02/20 Status: Ordered Blood Pressure Meter Blood Pressure Meter, See Instructions, # 1 each, Refills 0, Tot. Refills 0, Maintenance, Use for, 07/11/18 16:11:47 EDT, Compound Start Date: 07/11/18 Status: Ordered buprenorphine-naloxone 2 mg-0.5 mg sublingual film 1 film, Sublingual, Daily, [place] [id number], # 14 film, 0 Refills, Maintenance, 06/17/20 16:56:00 EDT, [facility] #[id number], Partial fill on request., 1 film Sublingual Daily,Instr:[place] [id number], 163, cm, 06/08/20 17:25:00 EDT, Height, 82.... Start Date: 06/17/20 Status: Ordered buprenorphine-naloxone 2 mg-0.5 mg sublingual film 0.25 each, Sublingual, Daily, [place] [id number], # 8 film, 0 Refills, Maintenance, 12/15/19 19:00:00 EDT, [facility] #[id number], Partial fill on request., 0.25 each Sublingual Daily,Instr:[facility] [id number], 162.56, cm, 10/09/19 10:36:00 EDT, Hei... Start Date: 12/15/19 Status: Ordered cetirizine 10 mg oral tablet 1 tablet = 10 mg, By Mouth, Daily, For allergies., # 30 tablet, 2 Refills, Maintenance, 06/29/19 16:02:00 EDT, Tablet, [facility] #[id number], 162.56, cm, 05/03/19 16:30:00 EST, Height, 72.3, kg, 09/26/18 16:01:00 EDT, Dry Weight Start Date: 06/29/19 Status: Ordered cloNIDine 0.1 mg oral tablet 0.1 mg, 1, tablet, By Mouth, 3 times a day, as needed for anxiety, # 25 tablet, Refills 0, Tot. Refills 0, Maintenance, 10/10/19 21:36:00 EDT, Route to Pharmacy Electronically, [facility] #[id number], 162.56, cm, 10/09/19 10:36:00 EDT, Height, 72... [...] Gm, 5 Refills, Maintenance, 07/19/19 15:19:00 EDT, [place], [facility] #[id number], 2 sprays Nares, Both Daily in AM,x30 days, 162.56, cm, 05/03/19 16:30:00 EST, Height, 72.3, kg, 09/26/18 16:01:00 EDT, Dry... Start Date: 07/19/19 Stop Date: 01/15/20 Status: Ordered Flovent HFA 44 mcg/inh inhalation aerosol 1 puffs, Inhalation, 2 times a day, # 1 each, 5 Refills, Maintenance, 06/07/20 12:52:00 EDT, Aerosol, [facility] #[id number], 162.56, cm, 05/23/20 14:31:00 EDT, Height, 77, [...] 3 Refills, Maintenance, 03/02/20 19:48:00 EST, Tablet, [facility] #[id number], 30 day supply preferred for present, 162.56, [...] 05/12/18 14:45:33 EDT, Route to Pharmacy Electronically, [id number], [facility] Start Date: 05/12/18 Status: Ordered LORazepam 0.5 mg oral tablet 0.5 tablet = 0.25 mg, By Mouth, 2 times a day, PRN as needed for anxiety, # 20 tablet, 1 Refills, Maintenance, 05/16/19 23:11:00 EDT, Tablet, [facility] #[id number], 162.56, cm, 05/03/19 16:30:00 EST, Height, 72.3, kg, 09/26/18 16:01:00 EDT, Dry... Start Date: 05/16/19 Status: Ordered losartan 100 mg oral tablet 1 tablet = 100 mg, By Mouth, Daily, # 30 tablet, 2 Refills, Maintenance, 06/26/20 8:47:00 EDT, Tablet, [facility] #[id number], 162, cm, 06/19/20 8:04:00 EDT, Height, 82.1, kg, 06/08/20 17:25:00 EDT, Dry Weight Start Date: 06/26/20 Status: Ordered meclizine 25 mg oral tablet 1 tablet = 25 mg, By Mouth, 2 times a day, # 30 tablet, 1 Refills, Maintenance, 03/30/19 15:49:00 EST, Tablet, [facility] #[id number], 162.56, cm, 03/08/19 14:34:00 EST, Height, 72.3, [...] each, 0 Refills, Maintenance, 06/04/20 16:46:00 EDT, [facility] #[id number], OK to sub for any gallon prep, [...] 12:51:00 EDT, Aerosol, Route to Pharmacy Electronically, [id number], [facility] #[id number], 1... Start Date: 06/07/20 Status: Ordered Senna 8.6 mg oral tablet 1-3 tablet, By Mouth, Daily, for constipation, # 90 tablet, Refills 5, Tot. Refills 5, Maintenance,03/26/20 15:25:00 EST, Route to Pharmacy Electronically, [facility] #[id number] Tablet, 162.56, cm, 03/21/20 15:01:00 EST, Height, 77, kg, ... Start Date: 03/26/20 Status: Ordered Spacer for inhalers Spacer for inhalers, See Instructions, # 1 each, Refills 0, Tot. Refills 0, Maintenance, Use with inhalers as directed. [place]., 06/07/19 15:07:00 EDT, Compound, 162.56, cm, [...] 1 Refills, Maintenance, 03/02/20 19:47:00 EST, Tablet, [facility] #[id number], 162.56, cm, 01/04/20 9:40:00 ES... Start Date: 03/02/20 Status: Ordered Zofran 4 mg oral tablet 1 tablet = 4 mg, By Mouth, 2 times a day, PRN Nausea & Vomiting, # 10 tablet, 0 Refills, Maintenance, 05/04/20 17:09:00 EST, Tablet, [facility] #06671, 162.56, cm, 05/03/20 9:23:00 EST,Height, 77, kg, [...] 2016 Active Migraine(Confirmed) Active Opioid dependence(Confirmed) Active *[id number] Care Partn April Saavedra(Confirmed) Active Health care [...] tolerance, and QD need over. 2genotype 02/02: [id number] is only mutation detected 3death of sister, caring for mother w/ dementia 4repeat screening colonoscopy in 2020 Social History Social History Type Response Smoking Status Former smoker, quit more than 30 days ago entered on: 05/24/18 Sex
--- OUTSIDE RECORDS SUMMARY | 2022-12-13 21:30 | XMS_ITS | Continuity of Care Document ---
Author Name Unknown Organization [facility] Address [address] [place] [address]- Care Team Providers Care Doctor Naturopathic Name Role Phone Kahlil Sun MD [id number] Date[facility]s): 12/30/21 - 02/01/22 [facility]/[place] [address]- Attending Physician: Kahlil Sun MD Admitting Physician: [...] or observed. 2Result Comment: #2, [facility] 3Result Comment: [facility] 4Result Comment: pharmacy 5Location History: [facility] 6Admin Note: vis 08/31/11 7Admin Note: ADMIN.BY RN 8Result Comment: [facility] 9Admin Note: Admin. by RN 10Admin Note: Admin. by RN 11Admin Note: Admin. by RN 12Admin Note: vis 06/15/15 13Admin Note: dose #6 (3rd in 2nd series) 14Admin Note: dose #5 15Admin Note: #3 16Admin Note: LITO sanofi-pasteur 17Admin Note: ADMIN BEN, OCCUPATIONAL NURSE 18Admin Note: BY LEXI Agudelo 19Admin Note: [...] 5 Refills, Maintenance, 12/05/21 14:43:00EDT, CR Tablet, [facility] #07166, Partial fill upon patient request if the prescription is for a schedule II opioid drug., 162.56, cm, 12/05... Start Date: 12/05/21 Status: Ordered acyclovir 400 mg oral tablet 1 tablet = 400 mg, By Mouth, 2 times a day, # 10 tablet, 5 Refills, Maintenance, 01/08/21 18:41:00 EST, [facility] #[id number], 162, cm, 12/17/20 23:19:00 EDT, Height, 86.3, kg, 09/29/20 15:30:00 EDT, Dry Weight Start Date: 01/08/21 Stop Date: 02/07/21 Status: Ordered Albuterol (Eqv-ProAir HFA) 90 mcg/inh inhalation aerosol 2 puffs, Inhalation, Every 4 hours, PRN NEEDED FOR WHEEZING/SHORTNESS OF BREATH, USE WITH SPACERCHAMBER, # 8.5 Gm, 5 Refills, [facility] #[id number], 16, INHALE 2 PUFFS INTO LUNGS EVERY 4 HOURS NEEDED FOR WHEEZING/SHORTNESS OF BREATH. USE... Start Date: 11/13/20 Status: Ordered albuterol 0.083% inhalation solution 3 mL = 2.5 mg, Inhalation, Every 6 hours, PRN Wheezing/Shortness of Breath, # 60 each, 0 Refills, Maintenance, 06/07/20 12:51:00 EDT, Solution, [facility] #[id number], 162.56, cm, 05/23/20 14:31:00 EDT, Height, 77, [...] 01/04/22 19:11:00 EST, Route to Pharmacy Electronically, [facility] #[id number], 162.56, cm, 11/0... Start Date: 01/04/22 Status: Ordered Biktarvy oral tablet 1 tablet, By Mouth, Daily, # 90 tablet, 3 Refills, Maintenance, 06/13/21 22:19:00 EDT, [facility] #[id number], 1 tablet By Mouth Daily, 162, cm, [...] 1 Refills, Maintenance, 07/10/21 18:35:00 EDT, Tablet, [facility] #[id number], Partial fill upon patient request if the prescription is for a schedule II opioid drug., 162, cm, 06/19/21 15:40:00 EDT... Start Date: 07/10/21 Status: Ordered cloNIDine 0.1 mg oral tablet 1, tablet, By Mouth, 3 times a day, PRN, # 270 tablet, Refills 0, Maintenance, NEEDED FOR ANXIETY, 01/01/22 10:42:00 EDT, Route to Pharmacy Electronically, [facility] #[id number], 162.56, cm,12/05/21 14:12:00 EDT, Height, 87.6, kg, 10/24/21 8... Start Date: 01/01/22 Status: Ordered Colace Clear 50 mg oral capsule 1 capsule = 50 mg, By Mouth, 2 times a day, PRN as needed for constipation, # 60 capsule, 0 Refills, Maintenance, 12/05/21 15:09:00 EDT, [facility] #[id number], Partial fill upon patient requestif the prescription is for a schedule II opioid nhi... Start Date: 12/05/21 Status: Ordered diclofenac 1% topical gel = 2 Gm, Topically, 4 times a day, PRN for pain, not to exceed: 10 gm/day, # 100 Gm, 1 Refills, Maintenance, 05/29/21 16:52:00 EDT, Gel, [facility], Partial fill upon patient request if the prescription is for a schedule II opioid... Start Date: 05/29/21 Status: Ordered Dulera 200 mcg-5 mcg/inh inhalation aerosol 2 puffs, Inhalation, 2 times a day, # 1 each, 3 Refills, Maintenance, 01/28/21 16:44:00 EST, Aerosol, [facility], STOP FLOVENT, 2 puffs Inhalation 2 times a day,x30 days, 162, cm,01/28/21 16:02:00 EST, Height, 86.3, kg, 09/29/20 1... Start Date: 01/28/21 Stop Date: 05/28/21 Status: Ordered escitalopram 10 mg oral tablet 1 tablet = 10 mg, By Mouth, Daily, # 30 tablet, 11 Refills, Maintenance, 07/31/21 17:50:00 EDT, Tablet, [facility] #10254, Partial fill upon patient request if the [...] 5 Refills, Maintenance, 07/19/19 15:19:00 EDT, [place], [facility] #[id number], 2 sprays Nares, Both Daily in AM,x30 [...] Replace Required Details, Route to Pharmacy Electronically, [facility] #72001, 162.56, cm,... Start Date: 11/27/21 Status: Ordered [...] # 1 each, Maintenance[facility] Blood pressure monitor neededto monitor blood pressure DX: hypertension, 07/11/18 17:28:42 EDT, Compound Start Date: 07/11/18 Status: Ordered humidifier humidifier, See Instructions, # 1 each, Refills 0, Tot. Refills 0, Maintenance, use as directed forchronic sinusitis J32, 04/09/17 14:21:37 EST, Compound Start Date: 04/09/17 Status: Ordered losartan 100 mg oral tablet 1 tablet, By Mouth, Daily, # 30 tablet, 5 Refills, [facility] #56321, 162, cm, 10/09/21 16:19:00 EDT, Height, 86.3, kg, 09/29/20 15:30:00 EDT, Dry Weight Start Date: 10/20/21 Status: Ordered meclizine 25 mg oral tablet 1 tablet = 25 mg, By Mouth, 2 times a day, # 30 tablet, 1 Refills, Maintenance, 07/10/21 17:25:00 EDT, Tablet, [facility] #[id number], 162, cm, 06/19/21 15:40:00 EDT, Height, 86.3, kg, 09/29/20 15:30:00 EDT, Dry Weight Start Date: 07/10/21 Status: Ordered multivitamin with iron Multiple Vitamins with Iron oral tablet 1 tablet, By Mouth, Daily, # 30 tablet, 11 Refills, Maintenance, 09/06/21 19:08:00 EDT, Tablet, [facility] #[id number], 1 tablet By Mouth Daily, 162, cm, 07/31/21 16:00:00 EDT, Height, 86.3, kg,09/29/20 15:30:00 EDT, Dry Weight Start Date: 09/06/21 Status: Ordered Narcan 4 mg/0.1 mL nasal spray = 4 mg, Inhalation, Once, # 2 each, 1 Refills, Soft Stop, 10/29/20 12:23:00 EDT, [facility] #[id number], Partial fill upon patient request if the prescription is for a schedule II opioid drug., 162, cm, 09/29/20 15:30:00 EDT, Height, 86.3, kg, 08... Start Date: 10/29/20 Status: Ordered ondansetron 4 mg oral tablet 1 tablet = 4 mg, By Mouth, Daily, PRN Nausea & Vomiting, # 10 tablet, 3 Refills, Maintenance, 10/08/21 22:17:00 EDT, [facility] #[id number], 162, cm, 10/09/21 16:19:00 EDT, Height, 86.3, [...] each, 0 Refills, Maintenance, 06/04/20 16:46:00 EDT, [facility] #[id number], OK to sub for any gallon prep, used as directed, 162.56, cm, 05/23/20 14:31:00 EDT, Height, 77, kg, 03/21/20 15:04:00 EST, Dry We... Start Date: 06/04/20 Status: Ordered Senna 8.6 mg oral tablet 1-3 tablet, By Mouth, Daily, for constipation, # 90 tablet, Refills 5, Tot. Refills 5, Maintenance,03/26/20 15:25:00 EST, Route to Pharmacy Electronically, [facility] #[id number] Tablet, 162.56, cm, 03/21/20 15:01:00 EST, Height, [...] tablet, 2 Refills, Maintenance, 12/23/21 16:29:00 EDT, [facility] #[id number], 162.56, cm, 12/05/21 14:12:00 EDT, Height, 87.6, kg, 10/24/21 8:00:00 EDT, Dry Weight Start Date: 12/23/21 Status: Ordered Suboxone 8 mg-2 mg Sublingual Film 2.5 film, Sublingual, Daily, dissolve under the tongue may fill less due 01/30/2022 Marva [id number] covering for Dr Sun [id number], # 70 film, 0 Refills, Maintenance, 01/30/22 11:01:00 EST, Film, [facility], 2.5 film Subling... Start Date: 01/30/22 Stop Date: 02/27/22 Status: Ordered Suboxone 8 mg-2 mg Sublingual Film 2.5 film, Sublingual, Daily, dissolve under the tongue increase in dose Iveth [id number] coveringfor Dino baires on/after 08/22/2021, # 35 film, 0 Refills, Maintenance, 08/22/21 9:27:00 EDT, Film,[facility], 2.5 film Subli... Start Date: 08/22/21 Stop Date: 09/05/21 Status: Ordered SUMAtriptan 25 mg oral tablet 1 tablet = 25 mg, By Mouth, Daily, PRN as needed for migraine headache, may repeat dose after 2 hours up to a maximum of 2, # 6 tablet, 1 Refills, Maintenance, 03/02/20 19:47:00 EST, Tablet, [facility] #[id number], 162.56, cm, 01/04/20 9:40:00 ES... Start Date: 03/02/20 Status: Ordered zolpidem 5 mg oral tablet 1 tablet = 5 mg, By Mouth, Daily at bedtime, PRN as needed for sleep, covering for Dr. 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 3death of sister, caring for mother w/ dementia 4repeat screening colonoscopy in 2020 Social History Social History Type Response Smoking Status Former smoker, quit more than 30 days ago entered on: 12/05/21 Sex Patient Care team information Care Team Personnel Name: Kahlil Sun MD Position: [facility] Primary Care Physician Member Role: PCP Address: Address: [address] [place] [address] Name: Sharri Prince Position: [facility] PCO Associate Professional Member Role: Lifetime Consulting Provider Care Team Related Persons Name: SHANITA MENDOZA Address: home [address] [place] [address] Name: SHANITA MENDOZA Address: home [address] Name: ULICES PEARSON Name: ULICES ESPARZA Address: [place] [address] Name: LALA LI
--- OUTSIDE RECORDS SUMMARY | 2022-12-13 21:31 | XMS_ITS | Continuity of Care Document ---
Author Name Unknown Organization [facility] Address Unknown Care Team Providers Care Client Server Developer Name Role Phone Kahlil Sun MD Primary Care Physician [phone] Encounter [facility] Date(s): 08/20/21 - 09/19/21 [facility] Allergies, Adverse Reactions, Alerts Substance Reaction [...] or observed. 2Result Comment: #2, [facility] 3Result Comment: [facility] 4Result Comment: pharmacy 5Location History: [facility] 6Admin Note: vis 08/31/11 7Admin Note: ADMIN.BY RN 8Result Comment: formerly [facility], 1928–[facility] 9Admin Note: Admin. by RN 10Admin Note: Admin. by RN 11Admin Note: Admin. by RN 12Admin Note: vis 06/15/15 13Admin Note: dose #6 (3rd in 2nd series) 14Admin Note: dose #5 15Admin Note: #3 16Admin Note: SARAHNI sanofi-pasteur 17Admin Note: ADMIN BEN, RESEARCH BIOLOGIST 18Admin Note: BY LEXI Agudelo 19Admin Note: [...] tablet, 5 Refills, Maintenance, 01/08/21 18:41:00 EST, [facility] #[id number], 162, cm, 12/17/20 23:19:00 EDT, Height, 86.3, kg, 09/29/20 15:30:00 EDT, Dry Weight Start Date: 01/08/21 Stop Date: 02/07/21 Status: Ordered Albuterol (Eqv-ProAir HFA) 90 mcg/inh inhalation aerosol 2 puffs, Inhalation, Every 4 hours, PRN NEEDED FOR WHEEZING/SHORTNESS OF BREATH, USE WITH SPACERCHAMBER, # 8.5 Gm, 5 Refills, [facility] #24601, 16, INHALE 2 PUFFS INTO LUNGS EVERY 4 HOURS NEEDED FOR WHEEZING/SHORTNESS OF BREATH. USE... Start Date: 11/13/20 Status: Ordered albuterol 0.083% inhalation solution 3 mL = 2.5 mg, Inhalation, Every 6 hours, PRN Wheezing/Shortness of Breath, # 60 each, 0 Refills, Maintenance, 06/07/20 12:51:00 EDT, Solution, [facility] #[id number], 162.56, cm, 05/23/20 14:31:00 EDT, Height, 77, [...] tablet, 3 Refills, Maintenance, 06/13/21 22:19:00 EDT, [facility] #66097, 1 tablet By Mouth Daily, 162, cm, [...] 1 Refills, Maintenance, 07/10/21 18:35:00 EDT, Tablet, [facility] #57266, Partial fill upon patient request if the prescription is for a schedule II opioid drug., 162, cm, 06/19/21 15:40:00 EDT... Start Date: 07/10/21 Status: Ordered cetirizine 10 mg oral tablet 1 tablet = 10 mg, By Mouth, Daily, For allergies., # 30 tablet, 2 Refills, Maintenance, 06/29/19 16:02:00 EDT, Tablet, [facility] #72700, 162.56, cm, 05/03/19 16:30:00 EST, Height, 72.3, kg, 09/26/18 16:01:00 EDT, Dry Weight Start Date: 06/29/19 Status: Ordered cloNIDine 0.1 mg oral tablet 0.1 mg, 1, tablet, By Mouth, 3 times a day, as needed for anxiety, # 25 tablet, Refills 0, Tot. Refills 0, Maintenance, 10/10/19 21:36:00 EDT, Route to Pharmacy Electronically, [facility] #[id number], 162.56, cm, 10/09/19 10:36:00 EDT, Height, 72... Start Date: 10/10/19 Status: Ordered diclofenac 1% topical gel = 2 Gm, Topically, 4 times a day, PRN for pain, not to exceed: 10 gm/day, # 100 Gm, 1 Refills, Maintenance, 05/29/21 16:52:00 EDT, Gel, [facility], Partial fill upon patient request if the prescription is for a schedule II opioid... Start Date: 05/29/21 Status: Ordered Dulera 200 mcg-5 mcg/inh inhalation aerosol 2 puffs, Inhalation, 2 times a day, # 1 each, 3 Refills, Maintenance, 01/28/21 16:44:00 EST, Aerosol, [facility], STOP FLOVENT, 2 puffs Inhalation 2 times a day,x30 days, 162, cm,01/28/21 16:02:00 EST, Height, 86.3, kg, 09/29/20 1... Start Date: 01/28/21 Stop Date: 05/28/21 Status: Ordered escitalopram 10 mg oral tablet 1 tablet = 10 mg, By Mouth, Daily, # 30 tablet, 11 Refills, Maintenance, 07/31/21 17:50:00 EDT, Tablet, [facility] #53120, Partial fill upon patient request if the [...] Gm, 5 Refills, Maintenance, 07/19/19 15:19:00 EDT, [place], [facility] #65446, 2 sprays Nares, Both Daily in AM,x30 days, 162.56, cm, 05/03/19 16:30:00 EST, Height, 72.3, kg, 09/26/18 16:01:00 EDT, Dry... Start Date: 07/19/19 Stop Date: 01/15/20 Status: Ordered fluconazole 150 mg oral tablet 1 tablet = 150 mg, By Mouth, Once, # 1 tablet, 1 Refills, Soft Stop, 01/08/21 19:37:00 EST, Tablet,[facility] #[id number], 162, cm, 12/17/20 23:19:00 EDT, Height, 86.3, [...] 04/24/21 12:37:00 EST, Route to Pharmacy Electronically, [facility] #[id number], STOP HCTZ, 162, cm, 03/24/21 18:41:00 EST, [...] each, Maintenance, covering for [facility] Blood pressure monitor neededto monitor [...] 05/12/18 14:45:33 EDT, Route to Pharmacy Electronically, [id number], [facility] Start Date: 05/12/18 Status: Ordered LORazepam 0.5 mg oral tablet 0.5 tablet = 0.25 mg, By Mouth, 2 times a day, PRN as needed for anxiety, # 20 tablet, 1 Refills, Maintenance, 05/16/19 23:11:00 EDT, Tablet, [facility] #[id number], 162.56, cm, 05/03/19 16:30:00 EST, Height, 72.3, kg, 09/26/18 16:01:00 EDT, Dry... Start Date: 05/16/19 Status: Ordered losartan 100 mg oral tablet 1 tablet, By Mouth, Daily, # 30 tablet, 2 Refills, [facility] #[id number], 162, cm, 06/19/21 15:40:00 EDT, Height, 86.3, kg, 09/29/20 15:30:00 EDT, Dry Weight Start Date: 07/10/21 Status: Ordered meclizine 25 mg oral tablet 1 tablet = 25 mg, By Mouth, 2 times a day, # 30 tablet, 1 Refills, Maintenance, 07/10/21 17:25:00 EDT, Tablet, [facility] #99725, 162, cm, 06/19/21 15:40:00 EDT, Height, 86.3, kg, 09/29/20 15:30:00 EDT, Dry Weight Start Date: 07/10/21 Status: Ordered multivitamin with iron Multiple Vitamins with Iron oral tablet 1 tablet, By Mouth, Daily, # 30 tablet, 11 Refills, Maintenance, 09/06/21 19:08:00 EDT, Tablet, [facility] #75499, 1 tablet By Mouth Daily, 162, cm, 07/31/21 16:00:00 EDT, Height, 86.3, kg,09/29/20 15:30:00 EDT, Dry Weight Start Date: 09/06/21 Status: Ordered Narcan 4 mg/0.1 mL nasal spray = 4 mg, Inhalation, Once, # 2 each, 1 Refills, Soft Stop, 10/29/20 12:23:00 EDT, [facility] #[id number], Partial fill upon patient request if the [...] each, 0 Refills, Maintenance, 06/04/20 16:46:00 EDT, [facility] #94236, OK to sub for any gallon prep, used as directed, 162.56, cm, 05/23/20 14:31:00 EDT, Height, 77, kg, 03/21/20 15:04:00 EST, Dry We... Start Date: 06/04/20 Status: Ordered predniSONE 50 mg oral tablet 1 tablet = 50 mg, By Mouth, Daily, # 7 tablet, 0 Refills, Maintenance, 01/28/21 16:37:00 EST, Tablet, [facility], Partial fill upon patient request if the prescription is for a schedule II opioid drug., 162, cm, 01/28/21 16:02:00 E... Start Date: 01/28/21 Stop Date: 02/04/21 Status: Ordered Senna 8.6 mg oral tablet 1-3 tablet, By Mouth, Daily, for constipation, # 90 tablet, Refills 5, Tot. Refills 5, Maintenance,03/26/20 15:25:00 EST, Route to Pharmacy Electronically, [facility] #[id number] Tablet, 162.56, cm, 03/21/20 15:01:00 EST, Height, [...] 5 Refills, Maintenance, 04/24/21 12:36:00 EST, Tablet, [facility] #[id number], STOP HCTZ, 162, cm, 03/24/21 18:41:00 EST, [...] dissolve under the tongue increase in dose [facility] [id number] coveringfor Dino due on/after 08/22/2021, # 35 film, 0 Refills, Maintenance, 08/22/21 9:27:00 EDT, Film,[facility], 2.5 film Subli... Start Date: 08/22/21 Stop Date: 09/05/21 Status: Ordered SUMAtriptan 25 mg oral tablet 1 tablet = 25 mg, By Mouth, Daily, PRN as needed for migraine headache, may repeat dose after 2 hours up to a maximum of 2, # 6 tablet, 1 Refills, Maintenance, 03/02/20 19:47:00 EST, Tablet, [facility] #93801, 162.56, cm, 01/04/20 9:40:00 ES... Start Date: 03/02/20 Status: Ordered Zofran 4 mg oral tablet 1 tablet = 4 mg, By Mouth, Daily, PRN Nausea & Vomiting, # 10 tablet, 1 Refills, Maintenance, 08/18/21 22:17:00 EDT, Tablet, [facility] #80592, 162, cm, 07/31/21 16:00:00 EDT, Height, 86.3, kg, 09/29/20 15:30:00 EDT, Dry Weight Start Date: 08/18/21 Status: Ordered zolpidem 5 mg oral tablet 1 tablet = 5 mg, By Mouth, Daily at bedtime, PRN as needed for sleep, # 30 tablet, 1 Refills, Maintenance, 09/04/21 20:17:00 EDT, [facility] #[id number], 162, cm, 07/31/21 16:00:00 EDT, Height, 86.3, [...] Obese class I(Confirmed) Active Opioid dependence(Confirmed) Active *[id number] Care Partn er April Saavedra(Confirmed) Active Health [...] tolerance, and QD need over. 2genotype 02/02: [id number] is only mutation detected 3death of sister, caring for mother w/ dementia 4repeat screening colonoscopy in 2020 Social History Social History Type Response Smoking Status Former smoker, quit more than 30 days ago entered on: 10/29/20 Sex
--- OUTSIDE RECORDS SUMMARY | 2022-12-13 21:31 | XMS_ITS | Continuity of Care Document ---
Author Name Unknown Organization [facility] Address Unknown Care Team Providers Care Telemetry Tech Name Role Phone Kahlil Sun MD Primary Care Physician Encounter [facility] Date(s): 06/22/21 - 07/22/21 [facility] Allergies, Adverse Reactions, Alerts Substance Reaction [...] or observed. 2Result Comment: #2, [facility] 3Result Comment: [facility] 4Result Comment: pharmacy 5Location History: [facility] 6Admin Note: vis 08/31/11 7Admin Note: ADMIN.BY RN 8Result Comment: [facility] 9Admin Note: Admin. by RN 10Admin Note: Admin. by RN 11Admin Note: Admin. 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, APPLICATIONS SYSTEM ANALYST 18Admin Note: BY LEXI Agudelo 19Admin Note: [...] tablet, 5 Refills, Maintenance, 01/08/21 18:41:00 EST, [email or web address] #[id number], 162, cm, 12/17/20 23:19:00 EDT, Height, 86.3, kg, 09/29/20 15:30:00 EDT, Dry Weight Start Date: 01/08/21 Stop Date: 02/07/21 Status: Ordered Albuterol (Eqv-ProAir HFA) 90 mcg/inh inhalation aerosol 2 puffs, Inhalation, Every 4 hours, PRN NEEDED FOR WHEEZING/SHORTNESS OF BREATH, USE WITH SPACERCHAMBER, # 8.5 Gm, 5 Refills, [facility] #79362, 16, INHALE 2 PUFFS INTO LUNGS EVERY 4 HOURS NEEDED FOR WHEEZING/SHORTNESS OF BREATH. USE... Start Date: 11/13/20 Status: Ordered albuterol 0.083% inhalation solution 3 mL = 2.5 mg, Inhalation, Every 6 hours, PRN Wheezing/Shortness of Breath, # 60 each, 0 Refills, Maintenance, 06/07/20 12:51:00 EDT, Solution, [facility] #[id number], 162.56, cm, 05/23/20 14:31:00 EDT, Height, 77, [...] tablet, 3 Refills, Maintenance, 06/13/21 22:19:00 EDT, [email or web address] #[id number], 1 tablet By Mouth Daily, 162, cm, [...] 1 Refills, Maintenance, 07/10/21 18:35:00 EDT, Tablet, [email or web address] #[id number], Partial fill upon patient request if the prescription is for a schedule II opioid drug., 162, cm, 06/19/21 15:40:00 EDT... Start Date: 07/10/21 Status: Ordered cetirizine 10 mg oral tablet 1 tablet = 10 mg, By Mouth, Daily, For allergies., # 30 tablet, 2 Refills, Maintenance, 06/29/19 16:02:00 EDT, Tablet, [email or web address] #[id number], 162.56, cm, 05/03/19 16:30:00 EST, Height, 72.3, kg, 09/26/18 16:01:00 EDT, Dry Weight Start Date: 06/29/19 Status: Ordered cloNIDine 0.1 mg oral tablet 0.1 mg, 1, tablet, By Mouth, 3 times a day, as needed for anxiety, # 25 tablet, Refills 0, Tot. Refills 0, Maintenance, 10/10/19 21:36:00 EDT, Route to Pharmacy Electronically, [email or web address] #[id number], 162.56, cm, 10/09/19 10:36:00 EDT, Height, 72... Start Date: 10/10/19 Status: Ordered diclofenac 1% topical gel = 2 Gm, Topically, 4 times a day, PRN for pain, not to exceed: 10 gm/day, # 100 Gm, 1 Refills, Maintenance, 05/29/21 16:52:00 EDT, Gel, [facility], Partial fill upon patient request if the prescription is for a schedule II opioid... Start Date: 05/29/21 Status: Ordered Dulera 200 mcg-5 mcg/inh inhalation aerosol 2 puffs, Inhalation, 2 times a day, # 1 each, 3 Refills, Maintenance, 01/28/21 16:44:00 EST, Aerosol, [facility], STOP FLOVENT, 2 puffs Inhalation 2 times a day,x30 days, 162, cm,01/28/21 16:02:00 EST, Height, 86.3, kg, 09/29/20 1... Start Date: 01/28/21 Stop Date: 05/28/21 Status: Ordered escitalopram 5 mg oral tablet 1 tablet = 5 mg, By Mouth, Daily, # 30 tablet, 11 Refills, Maintenance, 05/07/21 9:48:00 EST, Tablet, [facility] #96143, Partial fill upon patient request if the prescription is for a schedule II opioid drug., 162, cm, 05/07/21 8:46:00 EST,... Start Date: 05/07/21 Status: Ordered Flonase 50 mcg/inh nasal spray 2 sprays, Nares, Both, Daily in AM, # 16 Gm, 5 Refills, Maintenance, 07/19/19 15:19:00 EDT, [place], [facility] #09423, 2 sprays Nares, Both Daily in AM,x30 days, 162.56, cm, 05/03/19 16:30:00 EST, Height, 72.3, kg, 09/26/18 16:01:00 EDT, Dry... Start Date: 07/19/19 Stop Date: 01/15/20 Status: Ordered fluconazole 150 mg oral tablet 1 tablet = 150 mg, By Mouth, Once, # 1 tablet, 1 Refills, Soft Stop, 01/08/21 19:37:00 EST, [facility] #68965, 162, cm, 12/17/20 23:19:00 EDT, Height, 86.3, [...] 04/24/21 12:37:00 EST, Route to Pharmacy Electronically, [facility] #[id number], STOP HCTZ, 162, cm, 03/24/21 18:41:00 EST, [...] # 1 each, Maintenance, covering for [facility] Blood pressure monitor neededto monitor blood [...] 05/12/18 14:45:33 EDT, Route to Pharmacy Electronically, [id number], [facility] Start Date: 05/12/18 Status: Ordered LORazepam 0.5 mg oral tablet 0.5 tablet = 0.25 mg, By Mouth, 2 times a day, PRN as needed for anxiety, # 20 tablet, 1 Refills, Maintenance, 05/16/19 23:11:00 EDT, Tablet, [facility] #89690, 162.56, cm, 05/03/19 16:30:00 EST, Height, 72.3, kg, 09/26/18 16:01:00 EDT, Dry... Start Date: 05/16/19 Status: Ordered losartan 100 mg oral tablet 1 tablet, By Mouth, Daily, # 30 tablet, 2 Refills, [facility] #08704, 162, cm, 06/19/21 15:40:00 EDT, Height, 86.3, kg, 09/29/20 15:30:00 EDT, Dry Weight Start Date: 07/10/21 Status: Ordered meclizine 25 mg oral tablet 1 tablet = 25 mg, By Mouth, 2 times a day, # 30 tablet, 1 Refills, Maintenance, 07/10/21 17:25:00 EDT, Tablet, [email or web address] #[id number], 162, cm, 06/19/21 15:40:00 EDT, Height, 86.3, kg, 09/29/20 15:30:00 EDT, Dry Weight Start Date: 07/10/21 Status: Ordered multivitamin with iron Multiple Vitamins with Iron oral tablet 1 tablet, By Mouth, Daily, # 30 tablet, 11 Refills, Maintenance, 05/07/21 9:45:00 EST, Tablet, [email or web address] #47135, Partial fill upon patient request if the prescription is for a schedule II opioid drug., 1 tablet By Mouth Daily, 162, cm, 030... Start Date: 05/07/21 Status: Ordered Narcan 4 mg/0.1 mL nasal spray = 4 mg, Inhalation, Once, # 2 each, 1 Refills, Soft Stop, 10/29/20 12:23:00 EDT, [email or web address] #[id number], Partial fill upon patient request if the [...] each, 0 Refills, Maintenance, 06/04/20 16:46:00 EDT, [email or web address] #[id number], OK to sub for any gallon prep, used as directed, 162.56, cm, 05/23/20 14:31:00 EDT, Height, 77, kg, 03/21/20 15:04:00 EST, Dry We... Start Date: 06/04/20 Status: Ordered predniSONE 50 mg oral tablet 1 tablet = 50 mg, By Mouth, Daily, # 7 tablet, 0 Refills, Maintenance, 01/28/21 16:37:00 EST, Tablet, [facility], Partial fill upon patient request if the prescription is for a schedule II opioid drug., 162, cm, 01/28/21 16:02:00 E... Start Date: 01/28/21 Stop Date: 02/04/21 Status: Ordered Senna 8.6 mg oral tablet 1-3 tablet, By Mouth, Daily, for constipation, # 90 tablet, Refills 5, Tot. Refills 5, Maintenance,03/26/20 15:25:00 EST, Route to Pharmacy Electronically, [facility] #[id number] Tablet, 162.56, cm, 03/21/20 15:01:00 EST, Height, [...] 5 Refills, Maintenance, 04/24/21 12:36:00 EST, Tablet, [facility] #61130, STOP HCTZ, 162, cm, 03/24/21 18:41:00 EST, [...] under the tongue increase in dose Dino [id number] due on/after 07/03/2021, # 35 film, 0 Refills, Maintenance, 07/03/21 13:32:00 EDT, Film, [email or web address]#[id number], 2.5 film Sublingual Daily,x14 days,Inst... Start Date: 07/03/21 Stop Date: 07/17/21 Status: Ordered SUMAtriptan 25 mg oral tablet 1 tablet = 25 mg, By Mouth, Daily, PRN as needed for migraine headache, may repeat dose after 2 hours up to a maximum of 2, # 6 tablet, 1 Refills, Maintenance, 03/02/20 19:47:00 EST, Tablet, [facility] #19808, 162.56, cm, 01/04/20 9:40:00 ES... Start Date: 03/02/20 Status: Ordered Zofran 4 mg oral tablet 1 tablet = 4 mg, By Mouth, 2 times a day, PRN Nausea & Vomiting, # 10 tablet, 1 Refills, Maintenance, 06/19/21 17:01:00 EDT, Tablet, [facility] #16467, 162, cm, 06/19/21 15:40:00 EDT, Height, 86.3, kg, 09/29/20 15:30:00 EDT, Dry Weight Start Date: 06/19/21 Status: Ordered zolpidem 5 mg oral tablet 1 tablet = 5 mg, By Mouth, Daily at bedtime, PRN as needed for sleep, # 30 tablet, 0 Refills, Maintenance, 06/28/21 16:47:00 EDT, [email or web address] #[id number], Partial fill upon patient request if theprescription [...] Obese class I(Confirmed) Active Opioid dependence(Confirmed) Active *[id number] Care Partn er April Saavedra(Confirmed) Active Health [...] tolerance, and QD need over. 2genotype 02/02: [id number] is only mutation detected 3death of sister, caring for mother w/ dementia 4repeat screening colonoscopy in 2020 Social History Social History Type Response Smoking Status Former smoker, quit more than 30 days ago entered on: 10/29/20 Sex
--- OUTSIDE RECORDS SUMMARY | 2022-12-13 21:31 | XMS_ITS | Continuity of Care Document ---
Author Name Unknown Organization [facility] Address Unknown Care Team Providers Care Credentialing Manager Name Role Phone Kahlil Sun MD Primary Care Physician [facility] Date(s): 10/30/20 - 11/29/20 [facility] Allergies, Adverse Reactions, Alerts Substance [...] toxoids (Td) 03/10/01 Given 1Result Comment: #2, [facility] 2Result Comment: [facility] 3Result Comment: [facility] 4Result Comment: pharmacy 5Location History: [facility] 6Admin Note: vis 08/31/11 7Admin Note: ADMIN.BY RN 8Admin Note: Admin. by RN 9Admin Note: Admin. by RN 10Admin Note: Admin. 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 Start Date: 09/12/20 Status: Ordered acyclovir 400 mg oral tablet 1 tablet = 400 mg, By Mouth, 2 times a day, # 10 tablet, 5 Refills, Maintenance, 01/26/20 16:20:00 EST, [facility], 162.56, cm, 10/09/19 10:36:00 EDT, Height, 72.3, kg, 09/26/18 16:01:00 EDT, Dry Weight Start Date: 01/26/20 Stop Date: 02/25/20 Status: Ordered Albuterol (Eqv-ProAir HFA) 90 mcg/inh inhalation aerosol 2 puffs, Inhalation, Every 4 hours, PRN NEEDED FOR WHEEZING/SHORTNESS OF BREATH, USE WITH SPACERCHAMBER, # 8.5 Gm, 5 Refills, [email or web address] #[id number], 16, INHALE 2 PUFFS INTO LUNGS EVERY 4 HOURS NEEDED FOR WHEEZING/SHORTNESS OF BREATH. USE... Start Date: 11/13/20 Status: Ordered albuterol 0.083% inhalation solution 3 mL = 2.5 mg, Inhalation, Every 6 hours, PRN Wheezing/Shortness of Breath, # 60 each, 0 Refills, Maintenance, 06/07/20 12:51:00 EDT, Solution, [facility] #[id number], 162.56, cm, 05/23/20 14:31:00 EDT, Height, 77, [...] tablet, 3 Refills, Maintenance, 03/02/20 19:50:00 EST, [facility] #[id number], 1 tablet By Mouth Daily, 162.56, cm, 01/04/20 9:40:00 EST, Height, 72.3, kg, 09/26/18 16:01:00 EDT, Dry Weight Start Date: 03/02/20 Status: Ordered Blood Pressure Meter Blood Pressure Meter, See Instructions, # 1 each, Refills 0, Tot. Refills 0, Maintenance, Use for, 07/11/18 16:11:47 EDT, Compound Start Date: 07/11/18 Status: Ordered buprenorphine-naloxone 2 mg-0.5 mg sublingual film 0.25 each, Sublingual, Daily, Dino [id number], # 8 film, 0 Refills, Maintenance, 12/15/19 19:00:00 EDT, [email or web address] #[id number], Partial fill on request., 0.25 each Sublingual Daily,Instr:Dino [id number], 162.56, cm, 10/09/19 10:36:00 EDT, Hei... Start Date: 12/15/19 Status: Ordered buprenorphine-naloxone 8 mg-2 mg sublingual film 1 film, Sublingual, Daily, dissolve under the tongue Scavron [id number] covering for Dino [id number], # 7 film, 0 Refills, Maintenance, 11/27/20 12:26:00 EDT, Film, [facility], Partial fill upon patient request if the prescriptio... Start Date: 11/27/20 Stop Date: 12/04/20 Status: Ordered cetirizine 10 mg oral tablet 1 tablet = 10 mg, By Mouth, Daily, For allergies., # 30 tablet, 2 Refills, Maintenance, 06/29/19 16:02:00 EDT, Tablet, [email or web address] #40409, 162.56, cm, 05/03/19 16:30:00 EST, Height, 72.3, kg, 09/26/18 16:01:00 EDT, Dry Weight Start Date: 06/29/19 Status: Ordered cloNIDine 0.1 mg oral tablet 0.1 mg, 1, tablet, By Mouth, 3 times a day, as needed for anxiety, # 25 tablet, Refills 0, Tot. Refills 0, Maintenance, 10/10/19 21:36:00 EDT, Route to Pharmacy Electronically, [facility] #[id number], 162.56, cm, 10/09/19 10:36:00 EDT, Height, 72... [...] Gm, 5 Refills, Maintenance, 07/19/19 15:19:00 EDT, [place], [email or web address] #00225, 2 sprays Nares, Both Daily in AM,x30 days, 162.56, cm, 05/03/19 16:30:00 EST, Height, 72.3, kg, 09/26/18 16:01:00 EDT, Dry... Start Date: 07/19/19 Stop Date: 01/15/20 Status: Ordered Flovent HFA 44 mcg/inh inhalation aerosol 1 puffs, Inhalation, 2 times a day, # 1 each, 5 Refills, Maintenance, 06/07/20 12:52:00 EDT, Aerosol, [email or web address] #24120, 162.56, cm, 05/23/20 14:31:00 EDT, Height, 77, [...] # 1 each, Maintenance, covering for Sharri [facility] Blood pressure monitor neededto monitor blood [...] 3 Refills, Maintenance, 03/02/20 19:48:00 EST, Tablet, [facility] #[id number], 30 day supply preferred for present, 162.56, [...] 05/12/18 14:45:33 EDT, Route to Pharmacy Electronically, [id number], [facility] Start Date: 05/12/18 Status: Ordered LORazepam 0.5 mg oral tablet 0.5 tablet = 0.25 mg, By Mouth, 2 times a day, PRN as needed for anxiety, # 20 tablet, 1 Refills, Maintenance, 05/16/19 23:11:00 EDT, Tablet, [facility] #[id number], 162.56, cm, 05/03/19 16:30:00 EST, Height, 72.3, kg, 09/26/18 16:01:00 EDT, Dry... Start Date: 05/16/19 Status: Ordered losartan 100 mg oral tablet 1 tablet, By Mouth, Daily, # 30 tablet, 5 Refills, Maintenance, 09/24/20 16:00:00 EDT, [facility] #[id number], 162, cm, 09/19/20 15:59:00 EDT, Height, 82.1, kg, 06/08/20 17:25:00 EDT, Dry Weight Start Date: 09/24/20 Status: Ordered meclizine 25 mg oral tablet 1 tablet = 25 mg, By Mouth, 2 times a day, # 30 tablet, 1 Refills, Maintenance, 03/30/19 15:49:00 EST, Tablet, [facility] #[id number], 162.56, cm, 03/08/19 14:34:00 EST, Height, 72.3, kg, 09/26/18 16:01:00 EDT, Dry Weight Start Date: 03/30/19 Status: Ordered Narcan 4 mg/0.1 mL nasal spray = 4 mg, Inhalation, Once, # 2 each, 1 Refills, Soft Stop, 10/29/20 12:23:00 EDT, [facility] #[id number], Partial fill upon patient request if the [...] each, 0 Refills, Maintenance, 06/04/20 16:46:00 EDT, [facility] #[id number], OK to sub for any gallon prep, used as directed, 162.56, cm, 05/23/20 14:31:00 EDT, Height, 77, kg, 03/21/20 15:04:00 EST, Dry We... Start Date: 06/04/20 Status: Ordered Senna 8.6 mg oral tablet 1-3 tablet, By Mouth, Daily, for constipation, # 90 tablet, Refills 5, Tot. Refills 5, Maintenance,03/26/20 15:25:00 EST, Route to Pharmacy Electronically, [facility] #[id number] Tablet, 162.56, cm, 03/21/20 15:01:00 EST, Height, 77, kg, ... Start Date: 03/26/20 Status: Ordered Spacer for inhalers Spacer for inhalers, See Instructions, # 1 each, Refills 0, Tot. Refills 0, Maintenance, Use with inhalers as directed. Danish., 06/07/19 15:07:00 EDT, Compound, 162.56, cm, 05/03/19 [...] 1 Refills, Maintenance, 03/02/20 19:47:00 EST, Tablet, [facility] #23578, 162.56, cm, 01/04/20 9:40:00 ES... Start Date: 03/02/20 Status: Ordered Zofran 4 mg oral tablet 1 tablet = 4 mg, By Mouth, 2 times a day, PRN Nausea & Vomiting, # 10 tablet, 0 Refills, Maintenance, 09/19/20 18:37:00 EDT, Tablet, [facility] #72656, 162, cm, 09/19/20 15:59:00 EDT, Height, 82.1, [...] Active Opioid dependence(Confirmed) Active Opioid dependence(Confirmed) Active *[id number] Care Partn er April Saavedra(Confirmed) Active Health [...] tolerance, and QD need over. 2genotype 02/02: [id number] is only mutation detected 3death of sister, caring for mother w/ dementia 4repeat screening colonoscopy in 2020 Social History Social History Type Response Smoking Status Former smoker, quit more than 30 days ago entered on: 10/29/20 Sex
--- OUTSIDE RECORDS SUMMARY | 2022-12-13 21:31 | XMS_ITS | Continuity of Care Document ---
Author Name Unknown Organization [facility] Address [address] [place] [address]- Care Team Providers Care Analytical Chemistry Teacher Name Role Phone Kahlil Sun MD Primary Care Physician [phone] [facility]counter [facility] Date(s): 10/06/19 - 11/05/19 [facility] [address] [place] [address]- [facility] Allergies, Adverse Reactions, Alerts Substance [...] Note: LITO sanofi-pasteur 13Admin Note: ADMIN BEN, HOTEL ATTENDANT 14Admin Note: BY LEXI Agudelo 15Admin Note: [...] 0 Refills, Maintenance, 06/07/19 14:59:00 EDT, Solution, [facility] #[id number], 162.56, cm, 05/03/19 16:30:00 EST, Height, 72.3, kg, 09/26/18 16:01:00 EDT, . Start Date: 06/07/19 Status: Ordered Bactrim 400 mg-80 mg oral tablet 1 tablet, By Mouth, 2 times a day, # 14 tablet, 0 Refills, Acute 12/09/19 15:46:00 EDT, 06/13/19 15:46:00 EDT, Tablet, [email or web address] #34018, 1 tablet By Mouth 2 times a day, 162.56, cm, 05/03/19 16:30:00 EST, Height, 72.3, kg, 09/26/18 16:01:00... Start Date: 06/13/19 Stop Date: 12/09/19 Status: Ordered Biktarvy oral tablet 1 tablet, By Mouth, Daily, # 30 tablet, 11 Refills, Maintenance, 06/29/19 16:26:00 EDT, [facility] #69817, 1 tablet By Mouth Daily, 162.56, cm, 05/03/19 16:30:00 EST, Height, 72.3, kg, 09/26/18 16:01:00 EDT, Dry Weight Start Date: 06/29/19 Status: Ordered Blood Pressure Meter Blood Pressure Meter, See Instructions, # 1 each, Refills 0, Tot. Refills 0, Maintenance, Use for, 07/11/18 16:11:47 EDT, Compound Start Date: 07/11/18 Status: Ordered buprenorphine-naloxone 2 mg-0.5 mg sublingual film 0.25 each, Sublingual, Daily, Dino [id number], # 4 film, 0 Refills, Maintenance, 10/10/19 21:39:00 EDT, [facility] #92006, Partial fill on request., 0.25 each Sublingual Daily,Instr:Dino [id number], 162.56, cm, 10/09/19 10:36:00 EDT, Hei... Start Date: 10/10/19 Status: Ordered cetirizine 10 mg oral tablet 1 tablet = 10 mg, By Mouth, Daily, For allergies., # 30 tablet, 2 Refills, Maintenance, 06/29/19 16:02:00 EDT, Tablet, [facility] #23519, 162.56, cm, 05/03/19 16:30:00 EST, Height, 72.3, kg, 09/26/18 16:01:00 EDT, Dry Weight Start Date: 06/29/19 Status: Ordered cloNIDine 0.1 mg oral tablet 0.1 mg, 1, tablet, By Mouth, 3 times a day, as needed for anxiety, # 25 tablet, Refills 0, Tot. Refills 0, Maintenance, 10/10/19 21:36:00 EDT, Route to Pharmacy Electronically, [email or web address] #[id number], 162.56, cm, 10/09/19 10:36:00 EDT, Height, 72... [...] Gm, 5 Refills, Maintenance, 07/19/19 15:19:00 EDT, [place], [email or web address] #28118, 2 sprays Nares, Both Daily in AM,x30 days, 162.56, cm, 05/03/19 16:30:00 EST, Height, 72.3, kg, 09/26/18 16:01:00 EDT, Dry... Start Date: 07/19/19 Stop Date: 01/15/20 Status: Ordered Flovent HFA 44 mcg/inh inhalation aerosol 1 puffs, Inhalation, 2 times a day, # 1 each, 5 Refills, Maintenance, 06/29/19 16:26:00 EDT, Aerosol, [facility] #36424, 162.56, cm, 05/03/19 16:30:00 EST, Height, 72.3, [...] 5 Refills, Maintenance, 09/11/19 10:29:00 EDT, Tablet, [email or web address] #93627, 30 day supply preferred for present, 162.56, [...] 05/12/18 14:45:33 EDT, Route to Pharmacy Electronically, [id number], [facility] [place] Start Date: 05/12/18 Status: Ordered LORazepam 0.5 mg oral tablet 0.5 tablet = 0.25 mg, By Mouth, 2 times a day, PRN as needed for anxiety, # 20 tablet, 1 Refills, Maintenance, 05/16/19 23:11:00 EDT, Tablet, [email or web address] #45194, 162.56, cm, 05/03/19 16:30:00 EST, Height, 72.3, kg, 09/26/18 16:01:00 EDT, Dry... Start Date: 05/16/19 Status: Ordered losartan 100 mg oral tablet 1 tablet = 100 mg, By Mouth, Daily, # 30 tablet, 11 Refills, Maintenance, 06/29/19 15:59:00 EDT, Tablet, [facility] #04615, 162.56, cm, 05/03/19 16:30:00 EST, Height, 72.3, kg, 09/26/18 16:01:00 EDT, Dry Weight Start Date: 06/29/19 Status: Ordered meclizine 25 mg oral tablet 1 tablet = 25 mg, By Mouth, 2 times a day, # 30 tablet, 1 Refills, Maintenance, 03/30/19 15:49:00 EST, Tablet, [email or web address] #46399, 162.56, cm, 03/08/19 14:34:00 EST, Height, 72.3, [...] 15:00:00 EDT, Aerosol, Route to Pharmacy Electronically, [id number], [email or web address] #42880, 1... Start Date: 06/07/19 Status: Ordered Senna 8.6 mg oral tablet 1-3 tablet, By Mouth, Daily, for constipation, # 90 tablet, Refills 5, Tot. Refills 5, Maintenance,02/17/18 15:12:45 EST, Route to Pharmacy Electronically, [id number], [facility] Tablet Start Date: 02/17/18 Status: Ordered Spacer for inhalers Spacer for inhalers, See Instructions, # 1 each, Refills 0, Tot. Refills 0, Maintenance, Use with inhalers as directed. Uzbek., 06/07/19 15:07:00 EDT, Compound, 162.56, cm, 05/03/19 16:30:00 EST, Height, 72.3, kg, 09/26/18 16:01:00 EDT, Dry Weight Start Date: 06/07/19 Status: Ordered SUMAtriptan 25 mg oral tablet 1 tablet = 25 mg, By Mouth, Daily, PRN as needed for migraine headache, may repeat dose after 2 hours up to a maximum of 2, # 6 tablet, 1 Refills, Maintenance, 04/18/19 13:31:00 EST, Tablet, [email or web address] #04882, 162.56, cm, 03/08/19 14:34:00 E... Start Date: 04/18/19 Status: Ordered Zofran 4 mg oral tablet 1 tablet = 4 mg, By Mouth, 2 times a day, PRN Nausea & Vomiting, # 10 tablet, 0 Refills, Maintenance, 10/13/19 12:33:00 EDT, Tablet, [email or web address] #40957, 162.56, cm, 10/09/19 10:36:00 EDT, Height, 72.3, kg, 09/26/18 16:01:00 EDT, Dry Weight Start Date: 10/13/19 Status: Ordered zolpidem 5 mg oral tablet 0 Refills, Maintenance, 01/22/18 21:33:47 EST Start Date: 01/22/18 Status: Ordered Problem List Condition Effective Dates Status Health Status Inform ant Abdominal bloating(Confirmed) Active Acne(Confirmed) Active *[id number]- [facility] Part ner April Saavedra(Confirmed) Active AIDS [...] tolerance, and QD need over. 2genotype 02/02: [id number] is only mutation detected 3death of sister, caring for mother w/ dementia 4repeat screening colonoscopy in 2020 Social History Social History Type Response Smoking Status Former smoker, quit more than 30 days ago entered on: 05/24/18 Sex
--- OUTSIDE RECORDS SUMMARY | 2022-12-13 21:31 | XMS_ITS | Continuity of Care Document ---
Author Name Unknown Organization [facility] Address [address] [place] [address]- Care Team Providers Care Food Mobile Driver Name Role Phone Kahlil Sun MD Primary Care Physician [phone] [facility] Date(s): 02/06/22 - 03/08/22 [facility] [address]- [place] Allergies, Adverse Reactions, Alerts Substance Reaction [...] events reported or observed. 2Result Comment: #2, [facility] 3Result Comment: [facility] 4Result Comment: pharmacy 5Location History: [facility] 6Admin Note: vis 08/31/11 7Admin Note: ADMIN.BY RN 8Result Comment: [facility] 9Admin Note: Admin. by RN 10Admin Note: Admin. by RN 11Admin Note: Admin. by RN 12Admin Note: vis 06/15/15 13Admin Note: dose #6 (3rd in 2nd series) 14Admin Note: dose #5 15Admin Note: #3 16Admin Note: LITO sanofi-pasteur 17Admin Note: ADMIN BEN, CAREER DEVELOPMENT ASSOCIATE 18Admin Note: BY LEXI Agudelo 19Admin Note: [...] 5 Refills, Maintenance, 12/05/21 14:43:00EDT, CR Tablet, [facility] #[id number], Partial fill upon patient request if the prescription is for a schedule II opioid drug., 162.56, cm, 12/05... Start Date: 12/05/21 Status: Ordered acyclovir 400 mg oral tablet 1 tablet = 400 mg, By Mouth, 2 times a day, # 10 tablet, 5 Refills, Maintenance, 01/08/21 18:41:00 EST, [facility] #[id number], 162, cm, 12/17/20 23:19:00 EDT, Height, 86.3, kg, 09/29/20 15:30:00 EDT, Dry Weight Start Date: 01/08/21 Stop Date: 02/07/21 Status: Ordered Albuterol (Eqv-ProAir HFA) 90 mcg/inh inhalation aerosol 2 puffs, Inhalation, Every 4 hours, PRN NEEDED FOR WHEEZING/SHORTNESS OF BREATH, USE WITH SPACERCHAMBER, # 8.5 Gm, 5 Refills, [facility] #[id number], 16, INHALE 2 PUFFS INTO LUNGS EVERY 4 HOURS NEEDED FOR WHEEZING/SHORTNESS OF BREATH. USE... Start Date: 11/13/20 Status: Ordered albuterol 0.083% inhalation solution 3 mL = 2.5 mg, Inhalation, Every 6 hours, PRN Wheezing/Shortness of Breath, # 60 each, 0 Refills, Maintenance, 06/07/20 12:51:00 EDT, Solution, [facility] #62895, 162.56, cm, 05/23/20 14:31:00 EDT, Height, 77, [...] 01/04/22 19:11:00 EST, Route to Pharmacy Electronically, [facility] #[id number], 162.56, cm, 11/0... Start Date: 01/04/22 Status: Ordered Biktarvy oral tablet 1 tablet, By Mouth, Daily, # 90 tablet, 3 Refills, Maintenance, 06/13/21 22:19:00 EDT, [facility] #[id number], 1 tablet By Mouth Daily, 162, cm, [...] 1 Refills, Maintenance, 07/10/21 18:35:00 EDT, Tablet, [facility] #62206, Partial fill upon patient request if the prescription is for a schedule II opioid drug., 162, cm, 06/19/21 15:40:00 EDT... Start Date: 07/10/21 Status: Ordered cloNIDine 0.1 mg oral tablet 1, tablet, By Mouth, 3 times a day, PRN, # 270 tablet, Refills 0, Maintenance, NEEDED FOR ANXIETY, 01/01/22 10:42:00 EDT, Route to Pharmacy Electronically, [facility] #[id number], 162.56, cm,12/05/21 14:12:00 EDT, Height, 87.6, kg, 10/24/21 8... Start Date: 01/01/22 Status: Ordered Colace Clear 50 mg oral capsule 1 capsule = 50 mg, By Mouth, 2 times a day, PRN as needed for constipation, # 60 capsule, 0 Refills, Maintenance, 12/05/21 15:09:00 EDT, [facility] #[id number], Partial fill upon patient requestif the prescription is for a schedule II opioid nhi... Start Date: 12/05/21 Status: Ordered diclofenac 1% topical gel = 2 Gm, Topically, 4 times a day, PRN for pain, not to exceed: 10 gm/day, # 100 Gm, 1 Refills, Maintenance, 05/29/21 16:52:00 EDT, Gel, [facility], Partial fill upon patient request if the prescription is for a schedule II opioid... Start Date: 05/29/21 Status: Ordered Dulera 200 mcg-5 mcg/inh inhalation aerosol 2 puffs, Inhalation, 2 times a day, # 1 each, 3 Refills, Maintenance, 01/28/21 16:44:00 EST, Aerosol, [facility], STOP FLOVENT, 2 puffs Inhalation 2 times a day,x30 days, 162, cm,01/28/21 16:02:00 EST, Height, 86.3, kg, 09/29/20 1... Start Date: 01/28/21 Stop Date: 05/28/21 Status: Ordered escitalopram 10 mg oral tablet 1 tablet = 10 mg, By Mouth, Daily, # 30 tablet, 11 Refills, Maintenance, 07/31/21 17:50:00 EDT, Tablet, [facility] #05697, Partial fill upon patient request if the [...] Gm, 5 Refills, Maintenance, 07/19/19 15:19:00 EDT, [place], [facility] #[id number], 2 sprays Nares, Both Daily in AM,x30 [...] Replace Required Details, Route to Pharmacy Electronically, [facility] #[id number], 162.56, cm,... Start Date: 11/27/21 Status: Ordered [...] # 1 each, Maintenance, covering for Shar[facility] Blood pressure monitor neededto monitor blood pressure DX: hypertension, 07/11/18 17:28:42 EDT, Compound Start Date: 07/11/18 Status: Ordered humidifier humidifier, See Instructions, # 1 each, Refills 0, Tot. Refills 0, Maintenance, use as directed forchronic sinusitis J32, 04/09/17 14:21:37 EST, Compound Start Date: 04/09/17 Status: Ordered losartan 100 mg oral tablet 1 tablet, By Mouth, Daily, # 30 tablet, 5 Refills, [facility] #[id number], 162, cm, 10/09/21 16:19:00 EDT, Height, 86.3, kg, 09/29/20 15:30:00 EDT, Dry Weight Start Date: 10/20/21 Status: Ordered meclizine 25 mg oral tablet 1 tablet = 25 mg, By Mouth, 2 times a day, # 30 tablet, 1 Refills, Maintenance, 07/10/21 17:25:00 EDT, Tablet, [facility] #[id number], 162, cm, 06/19/21 15:40:00 EDT, Height, 86.3, kg, 09/29/20 15:30:00 EDT, Dry Weight Start Date: 07/10/21 Status: Ordered multivitamin with iron Multiple Vitamins with Iron oral tablet 1 tablet, By Mouth, Daily, # 30 tablet, 11 Refills, Maintenance, 09/06/21 19:08:00 EDT, Tablet, [facility] #89099, 1 tablet By Mouth Daily, 162, cm, 07/31/21 16:00:00 EDT, Height, 86.3, kg,09/29/20 15:30:00 EDT, Dry Weight Start Date: 09/06/21 Status: Ordered Narcan 4 mg/0.1 mL nasal spray = 4 mg, Inhalation, Once, # 2 each, 1 Refills, Soft Stop, 10/29/20 12:23:00 EDT, [facility] #[id number], Partial fill upon patient request if the prescription is for a schedule II opioid drug., 162, cm, 09/29/20 15:30:00 EDT, Height, 86.3, kg, 08... Start Date: 10/29/20 Status: Ordered ondansetron 4 mg oral tablet 1 tablet = 4 mg, By Mouth, Daily, PRN Nausea & Vomiting, # 10 tablet, 3 Refills, Maintenance, 10/08/21 22:17:00 EDT, [facility] #[id number], 162, cm, 10/09/21 16:19:00 EDT, Height, 86.3, [...] each, 0 Refills, Maintenance, 06/04/20 16:46:00 EDT, [facility] #08329, OK to sub for any gallon prep, used as directed, 162.56, cm, 05/23/20 14:31:00 EDT, Height, 77, kg, 03/21/20 15:04:00 EST, Dry We... Start Date: 06/04/20 Status: Ordered Senna 8.6 mg oral tablet 1-3 tablet, By Mouth, Daily, for constipation, # 90 tablet, Refills 5, Tot. Refills 5, Maintenance,03/26/20 15:25:00 EST, Route to Pharmacy Electronically, [facility] #[id number] Tablet, 162.56, cm, 03/21/20 15:01:00 EST, Height, [...] tablet, 2 Refills, Maintenance, 12/23/21 16:29:00 EDT, [facility] #53405, 162.56, cm, 12/05/21 14:12:00 EDT, Height, 87.6, kg, 10/24/21 8:00:00 EDT, Dry Weight Start Date: 12/23/21 Status: Ordered Suboxone 8 mg-2 mg Sublingual Film 2.5 film, Sublingual, Daily, dissolve under the tongue may fill less due 01/30/2022 Marva [id number] covering for Dr Sun [id number], # 70 film, 0 Refills, Maintenance, 01/30/22 11:01:00 EST, Film, [facility], 2.5 film Subling... Start Date: 01/30/22 Stop Date: 02/27/22 Status: Ordered Suboxone 8 mg-2 mg Sublingual Film 2.5 film, Sublingual, Daily, dissolve under the tongue increase in dose Finnnyla [id number] coveringfor Dino due on/after 08/22/2021, # 35 film, 0 Refills, Maintenance, 08/22/21 9:27:00 EDT, Film,[facility], 2.5 film Subli... Start Date: 08/22/21 Stop Date: 09/05/21 Status: Ordered SUMAtriptan 25 mg oral tablet 1 tablet = 25 mg, By Mouth, Daily, PRN as needed for migraine headache, may repeat dose after 2 hours up to a maximum of 2, # 6 tablet, 1 Refills, Maintenance, 03/02/20 19:47:00 EST, Tablet, [facility] #70554, 162.56, cm, 01/04/20 9:40:00 ES... 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 3death of sister, caring for mother w/ dementia 4repeat screening colonoscopy in 2020 Social History Social History Type Response Smoking Status Former smoker, quit more than 30 days ago entered on: 12/05/21 Sex Patient Care team information Care Team Personnel Name: Kahlil Sun MD Position: [facility] Primary Care Physician Member Role: PCP Address: Address: [address] [place] [address]- Name: Sharri Prince Position: [facility] PCO Associate Professional Member Role: [employer] Consult[employer] Provider Care Team Related Persons Name: SHANITA MENDOZA Address: home [address] [place] [id number] Name: SHANITA MENDOZA Address: home [id number] Name: ULICES PEARSON Name: ULICES ESPARZA Address: [place] [address] Name: LALA LI
--- OUTSIDE RECORDS SUMMARY | 2022-12-13 21:31 | XMS_ITS | Continuity of Care Document ---
Author Name Unknown Organization [facility] Address [address] [place] [address]- Care Team Providers Care Outsole Splicer Name Role Phone Kahlil Sun MD Primary Care Physician Encounter [facility] Date(s): 05/07/22 - 06/27/22 [facility]/[place] [address]- Attending Physician: Kahlil Sun MD Admitting Physician: [...] events reported or observed. 2Result Comment: #2, [facility] 3Result Comment: [facility] 4Result Comment: pharmacy 5Location History: [facility] 6Admin Note: vis 08/31/11 7Admin Note: ADMIN.BY RN 8Result Comment: [facility] 9Admin Note: Admin. by RN 10Admin Note: Admin. by RN 11Admin Note: Admin. by RN 12Admin Note: vis 06/15/15 13Admin Note: dose #6 (3rd in 2nd series) 14Admin Note: dose #5 15Admin Note: #3 16Admin Note: LITO sanofi-pasteur 17Admin Note: ADMIN BEN, FINISH CARPENTER 18Admin Note: BY LEXI Agudelo 19Admin Note: [...] tablet, 5 Refills, Maintenance, 01/08/21 18:41:00 EST, [facility] #[id number], 162, cm, 12/17/20 23:19:00 EDT, Height, 86.3, kg, 09/29/20 15:30:00 EDT, Dry Weight Start Date: 01/08/21 Stop Date: 02/07/21 Status: Ordered Albuterol (Eqv-ProAir HFA) 90 mcg/inh inhalation aerosol 2 puffs, Inhalation, Every 4 hours, PRN NEEDED FOR WHEEZING/SHORTNESS OF BREATH, USE WITH SPACERCHAMBER, # 8.5 Gm, 5 Refills, [facility] #[id number], 16, INHALE 2 PUFFS INTO LUNGS EVERY 4 HOURS NEEDED FOR WHEEZING/SHORTNESS OF BREATH. USE... Start Date: 11/13/20 Status: Ordered albuterol 0.083% inhalation solution 3 mL = 2.5 mg, Inhalation, Every 6 hours, PRN Wheezing/Shortness of Breath, # 60 each, 0 Refills, Maintenance, 06/07/20 12:51:00 EDT, Solution, [facility] #[id number], 162.56, cm, 05/23/20 14:31:00 EDT, Height, 77, [...] tablet, 12 Refills, Maintenance, 04/17/22 7:54:00 EST, [facility] #[id number], 1 tablet By Mouth Daily, 162.56, cm, [...] 1 Refills, Maintenance, 07/10/21 18:35:00 EDT, Tablet, [facility] #04512, Partial fill upon patient request if the prescription is for a schedule II opioid drug., 162, cm, 06/19/21 15:40:00 EDT... Start Date: 07/10/21 Status: Ordered cloNIDine 0.1 mg oral tablet 1, tablet, By Mouth, 3 times a day, PRN, # 270 tablet, Refills 0, Tot. Refills 0, Maintenance, NEEDED FOR ANXIETY, 05/13/22 16:45:00 EDT, Route to Pharmacy Electronically, [facility] #[id number], 162.56, cm, 05/07/22 12:32:00 EST, Height, 87.6... Start Date: 05/13/22 Status: Ordered Colace Clear 50 mg oral capsule 1 capsule = 50 mg, By Mouth, 2 times a day, PRN as needed for constipation, # 60 capsule, 0 Refills, Maintenance, 12/05/21 15:09:00 EDT, [facility] #[id number], Partial fill upon patient requestif the prescription is for a schedule II opioid nhi... Start Date: 12/05/21 Status: Ordered diclofenac 1% topical gel = 2 Gm, Topically, 4 times a day, PRN for pain, not to exceed: 10 gm/day, # 100 Gm, 1 Refills, Maintenance, 05/29/21 16:52:00 EDT, Gel, [facility], Partial fill upon patient request if the prescription is for a schedule II opioid... Start Date: 05/29/21 Status: Ordered Dulera 200 mcg-5 mcg/inh inhalation aerosol 2 puffs, Inhalation, 2 times a day, # 1 each, 3 Refills, Maintenance, 01/28/21 16:44:00 EST, Aerosol, [facility], STOP FLOVENT, 2 puffs Inhalation 2 times a day,x30 days, 162, cm,01/28/21 16:02:00 EST, Height, 86.3, kg, 09/29/20 1... Start Date: 01/28/21 Stop Date: 05/28/21 Status: Ordered escitalopram 10 mg oral tablet 1 tablet = 10 mg, By Mouth, Daily, # 30 tablet, 11 Refills, Maintenance, 04/16/22 16:59:00 EST, Tablet, [facility] #[id number], Partial fill upon patient request if the [...] Gm, 5 Refills, Maintenance, 07/19/19 15:19:00 EDT, [place], [facility] #67673, 2 sprays Nares, Both Daily in AM,x30 [...] Replace Required Details, Route to Pharmacy Electronically, [facility] #[id number], 162.56, cm,... Start Date: 11/27/21 Status: Ordered [...] # 1 each, Maintenance, covering for [facility] Blood pressure monitor neededto monitor blood [...] 2 Refills, Maintenance, 06/25/22 18:17:00 EDT, Syrup, [facility] #[id number], 30 mL By Mouth 2 times a day, 162.56, cm, 06/25/22 16:16:00 EDT,Height, 87.6, kg, 10/24/21 8:00:00 EDT, Dry Weight Start Date: 06/25/22 Status: Ordered losartan 100 mg oral tablet 1 tablet, By Mouth, Daily, # 30 tablet, 5 Refills, [facility] #44250, 162, cm, 10/09/21 16:19:00 EDT, Height, 86.3, kg, 09/29/20 15:30:00 EDT, Dry Weight Start Date: 10/20/21 Status: Ordered meclizine 25 mg oral tablet 1 tablet = 25 mg, By Mouth, 2 times a day, # 30 tablet, 1 Refills, Maintenance, 07/10/21 17:25:00 EDT, Tablet, [facility] #01467, 162, cm, 06/19/21 15:40:00 EDT, Height, 86.3, kg, 09/29/20 15:30:00 EDT, Dry Weight Start Date: 07/10/21 Status: Ordered multivitamin with iron Multiple Vitamins with Iron oral tablet 1 tablet, By Mouth, Daily, # 30 tablet, 11 Refills, Maintenance, 04/17/22 7:51:00 EST, Tablet, [facility] #[id number], 1 tablet By Mouth Daily, 162.56, cm, 04/16/22 16:00:00 EST, Height, 87.6, kg, 10/24/21 8:00:00 EDT, Dry Weight Start Date: 04/17/22 Status: Ordered Narcan 4 mg/0.1 mL nasal spray = 4 mg, Inhalation, Once, # 2 each, 1 Refills, Soft Stop, 10/29/20 12:23:00 EDT, [facility] #36073, Partial fill upon patient request if the prescription is for a schedule II opioid drug., 162, cm, 09/29/20 15:30:00 EDT, Height, 86.3, kg, 08... Start Date: 10/29/20 Status: Ordered ondansetron 4 mg oral tablet 1 tablet = 4 mg, By Mouth, Daily, PRN Nausea & Vomiting, # 10 tablet, 3 Refills, Maintenance, 06/25/22 17:28:00 EDT, [facility] #44300, 162.56, cm, 06/25/22 16:16:00 EDT, Height, 87.6, kg, 10/24/21 8:00:00 EDT, Dry Weight Start Date: 06/25/22 Status: Ordered pantoprazole 20 mg oral delayed release tablet 1 tablet, By Mouth, Daily, # 30 tablet, 2 Refills, Maintenance, 06/19/22 10:56:00 EDT, 162.56, cm, 05/07/22 12:32:00 EST, Height, 87.6, kg, 10/24/21 8:00:00 EDT, Dry Weight Start Date: 4/21/23 Status: Ordered PEG-3350 with Electrolytes (Eqv-GoLYTELY) oral powder for reconstitution See Instructions, used as directed, # 1 each, 0 Refills, Maintenance, 06/04/20 16:46:00 EDT, [facility] #06568, OK to sub for any gallon prep, used as directed, 162.56, cm, 05/23/20 14:31:00 EDT, Height, 77, kg, 03/21/20 15:04:00 EST, Dry We... Start Date: 06/04/20 Status: Ordered Senna 8.6 mg oral tablet 1-3 tablet, By Mouth, Daily, for constipation, # 90 tablet, Refills 5, Tot. Refills 5, Maintenance,03/26/20 15:25:00 EST, Route to Pharmacy Electronically, [facility] #[id number] Tablet, 162.56, cm, 03/21/20 15:01:00 EST, Height, [...] tablet, 5 Refills, Maintenance, 04/17/22 7:53:00 EST, [facility] #[id number], 162.56, cm, 04/16/22 16:00:00 EST, Height, 87.6, kg, 10/24/21 8:00:00 EDT, Dry Weight Start Date: 04/17/22 Status: Ordered Suboxone 8 mg-2 mg Sublingual Film 2.5 film, Sublingual, Daily, dissolve under the tongue increase in dose Iveth [id number] coveringfor Dino due on/after 08/22/2021, # 35 film, 0 Refills, Maintenance, 08/22/21 9:27:00 EDT, Film,[facility], 2.5 film Subli... Start Date: 08/22/21 Stop Date: 09/05/21 Status: Ordered Suboxone 8 mg-2 mg Sublingual Film 2 film, Sublingual, Daily, dissolve under the tongue may fill less due 05/27/2022, # 14 film, 0 Refills, Maintenance, 05/28/22 8:17:00 EDT, Film, [facility], 2 film Sublingual Daily,x7 days,Instr:dissolve under the tongue; may fi... Start Date: 05/28/22 Stop Date: 06/04/22 Status: Ordered Suboxone 8 mg-2 mg Sublingual Film 2 film, Sublingual, Daily, dissolve under the tongue may fill less due 06/23/2022, # 14 film, 0 Refills, Maintenance, 06/23/22 9:17:00 EDT, Film, [facility], 2 film Sublingual Daily,x7 days,Instr:dissolve under the tongue; may fi... Start Date: 06/23/22 Stop Date: 06/30/22 Status: Ordered SUMAtriptan 25 mg oral tablet 1 tablet = 25 mg, By Mouth, Daily, PRN as needed for migraine headache, may repeat dose after 2 hours up to a maximum of 2, # 6 tablet, 1 Refills, Maintenance, 03/02/20 19:47:00 EST, Tablet, [facility] #[id number], 162.56, cm, 01/04/20 9:40:00 ES... 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 3death of sister, caring for mother w/ dementia 4repeat screening colonoscopy in 2020 Social History Social History Type Response Smoking Status Former smoker, quit more than 30 days ago entered on: 12/05/21 Sex Patient Care team information Care Team Personnel Name: Kahlil Sun MD Position: [facility] Primary Care Physician Member Role: PCP Address: Address: [address] [place] [address] Name: Sharri Prince Position: [facility] PCO Associate Professional Member Role: Lifetime Consulting Provider Care Team Related Persons Name: SHANITA MENDOZA Address: [address] [place] [address] Name: SHANITA MENDOZA Address: home [address] Name: ULICES PEARSON Name: ULICES ESPARZA Address: [place] [address] Name: LALA LI
--- OUTSIDE RECORDS SUMMARY | 2022-12-13 21:31 | XMS_ITS | Continuity of Care Document ---
Author Name Unknown Organization 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 2Result Comment: #2, [facility] 3Result Comment: [facility] 4Result Comment: pharmacy 5Location History: [facility] 6Admin Note: vis 08/31/11 7Admin Note: ADMIN.BY RN 8Result Comment: [facility] 9Admin Note: Admin. by RN 10Admin Note: Admin. by RN 11Admin Note: Admin. 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 USE... Start Date: 11/13/20 Status: Ordered albuterol 0.083% inhalation solution 3 mL = 2.5 mg, Inhalation, Every 6 hours, PRN Wheezing/Shortness of Breath, # 60 each, 0 Refills, Maintenance, 06/07/20 12:51:00 EDT, Solution, [facility] #[id number], 162.56, cm, 05/23/20 14:31:00 EDT, Height, 77, [...] tablet, 3 Refills, Maintenance, 06/13/21 22:19:00 EDT, [facility] #69450, 1 tablet By Mouth Daily, 162, cm, [...] 1 Refills, Maintenance, 07/10/21 18:35:00 EDT, Tablet, [facility] #02139, Partial fill upon patient request if the prescription is for a schedule II opioid drug., 162, cm, 06/19/21 15:40:00 EDT... Start Date: 07/10/21 Status: Ordered cetirizine 10 mg oral tablet 1 tablet = 10 mg, By Mouth, Daily, For allergies., # 30 tablet, 2 Refills, Maintenance, 06/29/19 16:02:00 EDT, Tablet, [facility] #[id number], 162.56, cm, 05/03/19 16:30:00 EST, Height, 72.3, kg, 09/26/18 16:01:00 EDT, Dry Weight Start Date: 06/29/19 Status: Ordered cloNIDine 0.1 mg oral tablet 0.1 mg, 1, tablet, By Mouth, 3 times a day, as needed for anxiety, # 25 tablet, Refills 0, Tot. Refills 0, Maintenance, 10/10/19 21:36:00 EDT, Route to Pharmacy Electronically, [facility] #[id number], 162.56, cm, 10/09/19 10:36:00 EDT, Height, 72... [...] 11 Refills, Maintenance, 07/31/21 17:50:00 EDT, Tablet, [facility] #21060, Partial fill upon patient request if the prescription is for a schedule II opioid drug., 162, cm, 07/31/21 16:00:00 ED... Start Date: 07/31/21 Status: Ordered Flonase 50 mcg/inh nasal spray 2 sprays, Nares, Both, Daily in AM, # 16 Gm, 5 Refills, Maintenance, 07/19/19 15:19:00 EDT, [place] #58125, 2 sprays Nares, Both Daily in AM,x30 days, 162.56, cm, 05/03/19 16:30:00 EST, Height, 72.3, kg, 09/26/18 16:01:00 EDT, Dry... Start Date: 07/19/19 Stop Date: 01/15/20 Status: Ordered fluconazole 150 mg oral tablet 1 tablet = 150 mg, By Mouth, Once, # 1 tablet, 1 Refills, Soft Stop, 01/08/21 19:37:00 EST, Tablet,[facility] #51696, 162, cm, 12/17/20 23:19:00 EDT, Height, 86.3, [...] 04/24/21 12:37:00 EST, Route to Pharmacy Electronically, [facility] #[id number], STOP HCTZ, 162, cm, 03/24/21 18:41:00 EST, Heigh... Start Date: 04/24/21 Stop Date: 8/23/22 Status: Ordered Glucose Monitor See Instructions, PRN, [...] # 1 each, Maintenance, [facility] Blood pressure monitor neededto monitor blood pressure [...] 05/12/18 14:45:33 EDT, Route to Pharmacy Electronically, [id number], [facility] Start Date: 05/12/18 Status: Ordered LORazepam 0.5 mg oral tablet 0.5 tablet = 0.25 mg, By Mouth, 2 times a day, PRN as needed for anxiety, # 20 tablet, 1 Refills, Maintenance, 05/16/19 23:11:00 EDT, Tablet, [facility] #[id number], 162.56, cm, 05/03/19 16:30:00 EST, Height, 72.3, kg, 09/26/18 16:01:00 EDT, Dry... Start Date: 05/16/19 Status: Ordered losartan 100 mg oral tablet 1 tablet, By Mouth, Daily, # 30 tablet, 2 Refills, [facility] #68205, 162, cm, 06/19/21 15:40:00 EDT, Height, 86.3, kg, 09/29/20 15:30:00 EDT, Dry Weight Start Date: 07/10/21 Status: Ordered meclizine 25 mg oral tablet 1 tablet = 25 mg, By Mouth, 2 times a day, # 30 tablet, 1 Refills, Maintenance, 07/10/21 17:25:00 EDT, Tablet, [facility] #57518, 162, cm, 06/19/21 15:40:00 EDT, Height, 86.3, kg, 09/29/20 15:30:00 EDT, Dry Weight Start Date: 07/10/21 Status: Ordered multivitamin with iron Multiple Vitamins with Iron oral tablet 1 tablet, By Mouth, Daily, # 30 tablet, 11 Refills, Maintenance, 05/07/21 9:45:00 EST, Tablet, [facility] #99164, Partial fill upon patient request if the prescription is for a schedule II opioid drug., 1 tablet By Mouth Daily, 162, cm, 030... Start Date: 05/07/21 Status: Ordered Narcan 4 mg/0.1 mL nasal spray = 4 mg, Inhalation, Once, # 2 each, 1 Refills, Soft Stop, 10/29/20 12:23:00 EDT, [facility] #[id number], Partial fill upon patient request if the [...] each, 0 Refills, Maintenance, 06/04/20 16:46:00 EDT, [facility] #58832, OK to sub for any gallon prep, used as directed, 162.56, cm, 05/23/20 14:31:00 EDT, Height, 77, kg, 03/21/20 15:04:00 EST, Dry We... Start Date: 06/04/20 Status: Ordered predniSONE 50 mg oral tablet 1 tablet = 50 mg, By Mouth, Daily, # 7 tablet, 0 Refills, Maintenance, 01/28/21 16:37:00 EST, Tablet, [facility], Partial fill upon patient request if the prescription is for a schedule II opioid drug., 162, cm, 01/28/21 16:02:00 E... Start Date: 01/28/21 Stop Date: 02/04/21 Status: Ordered Senna 8.6 mg oral tablet 1-3 tablet, By Mouth, Daily, for constipation, # 90 tablet, Refills 5, Tot. Refills 5, Maintenance,03/26/20 15:25:00 EST, Route to Pharmacy Electronically, [facility] #[id number] Tablet, 162.56, cm, 03/21/20 15:01:00 EST, Height, [...] 5 Refills, Maintenance, 04/24/21 12:36:00 EST, Tablet, [facility] #[id number], STOP HCTZ, 162, cm, 03/24/21 18:41:00 EST, [...] under the tongue increase in dose Iveth [id number] coveringfor Curtiss due on/after 07/25/2021, # 35 film, 0 Refills, Maintenance, 07/25/21 12:07:00 EDT, Film, [facility], 2.5 film Subl... Start Date: 07/25/21 Stop Date: 08/08/21 Status: Ordered SUMAtriptan 25 mg oral tablet 1 tablet = 25 mg, By Mouth, Daily, PRN as needed for migraine headache, may repeat dose after 2 hours up to a maximum of 2, # 6 tablet, 1 Refills, Maintenance, 03/02/20 19:47:00 EST, Tablet, [facility] #[id number], 162.56, cm, 01/04/20 9:40:00 ES... Start Date: 03/02/20 Status: Ordered Zofran 4 mg oral tablet 1 tablet = 4 mg, By Mouth, 2 times a day, PRN Nausea & Vomiting, # 10 tablet, 1 Refills, Maintenance, 06/19/21 17:01:00 EDT, Tablet, [facility] #[id number], 162, cm, 06/19/21 15:40:00 EDT, Height, 86.3, kg, 09/29/20 15:30:00 EDT, Dry Weight Start Date: 06/19/21 Status: Ordered zolpidem 5 mg oral tablet 1 tablet = 5 mg, By Mouth, Daily at bedtime, PRN as needed for sleep, # 25 tablet, 0 Refills, Maintenance, 07/31/21 17:57:00 EDT, [facility] #[id number], Partial fill upon patient request if theprescription [...] Obese class I(Confirmed) Active Opioid dependence(Confirmed) Active *[id number] Care Partn er April Saavedra(Confirmed) Active Health [...] tolerance, and QD need over. 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
--- OUTSIDE RECORDS SUMMARY | 2022-12-13 21:31 | XMS_ITS | Continuity of Care Document ---
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 2Result Comment: #2, [facility] 3Result Comment: [facility] 4Result Comment: pharmacy 5Location History: [facility] 6Admin Note: vis 08/31/11 7Admin Note: ADMIN.BY RN 8Result Comment: [facility] 9Admin Note: Admin. by RN 10Admin Note: Admin. by RN 11Admin Note: Admin. 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 Start Date: 12/05/21 Status: Ordered acyclovir 400 mg oral tablet 1 tablet = 400 mg, By Mouth, 2 times a day, # 10 tablet, 5 Refills, Maintenance, 01/08/21 18:41:00 EST, [facility] #[id number], 162, cm, 12/17/20 23:19:00 EDT, Height, 86.3, kg, 09/29/20 15:30:00 EDT, Dry Weight Start Date: 01/08/21 Stop Date: 02/07/21 Status: Ordered Albuterol (Eqv-ProAir HFA) 90 mcg/inh inhalation aerosol 2 puffs, Inhalation, Every 4 hours, PRN NEEDED FOR WHEEZING/SHORTNESS OF BREATH, USE WITH SPACERCHAMBER, # 8.5 Gm, 5 Refills, [facility] #[id number], 16, INHALE 2 PUFFS INTO LUNGS EVERY 4 HOURS NEEDED FOR WHEEZING/SHORTNESS OF BREATH. USE... Start Date: 11/13/20 Status: Ordered albuterol 0.083% inhalation solution 3 mL = 2.5 mg, Inhalation, Every 6 hours, PRN Wheezing/Shortness of Breath, # 60 each, 0 Refills, Maintenance, 06/07/20 12:51:00 EDT, Solution, [facility] #[id number], 162.56, cm, 05/23/20 14:31:00 EDT, Height, 77, [...] 01/04/22 19:11:00 EST, Route to Pharmacy Electronically, [facility] #[id number], 162.56, cm, 11/0... Start Date: 01/04/22 Status: Ordered Biktarvy oral tablet 1 tablet, By Mouth, Daily, # 30 tablet, 12 Refills, Maintenance, 04/17/22 7:54:00 EST, [facility] #[id number], 1 tablet By Mouth Daily, 162.56, cm, [...] 1 Refills, Maintenance, 07/10/21 18:35:00 EDT, Tablet, [facility] #[id number], Partial fill upon patient request if the prescription is for a schedule II opioid drug., 162, cm, 06/19/21 15:40:00 EDT... Start Date: 07/10/21 Status: Ordered cloNIDine 0.1 mg oral tablet 1, tablet, By Mouth, 3 times a day, PRN, # 270 tablet, Refills 0, Tot. Refills 0, Maintenance, NEEDED FOR ANXIETY, 05/13/22 16:45:00 EDT, Route to Pharmacy Electronically, [facility] #[id number], 162.56, cm, 05/07/22 12:32:00 EST, Height, 87.6... Start Date: 05/13/22 Status: Ordered Colace Clear 50 mg oral capsule 1 capsule = 50 mg, By Mouth, 2 times a day, PRN as needed for constipation, # 60 capsule, 0 Refills, Maintenance, 12/05/21 15:09:00 EDT, [facility] #[id number], Partial fill upon patient requestif the prescription is for a schedule II opioid nhi... Start Date: 12/05/21 Status: Ordered diclofenac 1% topical gel = 2 Gm, Topically, 4 times a day, PRN for pain, not to exceed: 10 gm/day, # 100 Gm, 1 Refills, Maintenance, 05/29/21 16:52:00 EDT, Gel, [facility], Partial fill upon patient request if the prescription is for a schedule II opioid... Start Date: 05/29/21 Status: Ordered Dulera 200 mcg-5 mcg/inh inhalation aerosol 2 puffs, Inhalation, 2 times a day, # 1 each, 3 Refills, Maintenance, 01/28/21 16:44:00 EST, Aerosol, [facility], STOP FLOVENT, 2 puffs Inhalation 2 times a day,x30 days, 162, cm,01/28/21 16:02:00 EST, Height, 86.3, kg, 09/29/20 1... Start Date: 01/28/21 Stop Date: 05/28/21 Status: Ordered escitalopram 10 mg oral tablet 1 tablet = 10 mg, By Mouth, Daily, # 30 tablet, 11 Refills, Maintenance, 04/16/22 16:59:00 EST, Tablet, [facility] #[id number], Partial fill upon patient request if the [...] Gm, 5 Refills, Maintenance, 07/19/19 15:19:00 EDT, [place], [email or web address] #[id number], 2 sprays Nares, Both Daily in AM,x30 [...] Replace Required Details, Route to Pharmacy Electronically, [email or web address] #[id number], 162.56, cm,... Start Date: 11/27/21 Status: Ordered [...] Replace Required Details, Route to Pharmacy Electronically, [email or web address] . Start Date: 04/16/22 Status: Ordered Glucose [...] # 1 each, Maintenance[facility] Blood pressure monitor neededto monitor blood pressure DX: hypertension, 07/11/18 17:28:42 EDT, Compound Start Date: 07/11/18 Status: Ordered humidifier humidifier, See Instructions, # 1 each, Refills 0, Tot. Refills 0, Maintenance, use as directed forchronic sinusitis J32, 04/09/17 14:21:37 EST, Compound Start Date: 04/09/17 Status: Ordered losartan 100 mg oral tablet 1 tablet, By Mouth, Daily, # 30 tablet, 5 Refills, [facility] #[id number], 162, cm, 10/09/21 16:19:00 EDT, Height, 86.3, kg, 09/29/20 15:30:00 EDT, Dry Weight Start Date: 10/20/21 Status: Ordered meclizine 25 mg oral tablet 1 tablet = 25 mg, By Mouth, 2 times a day, # 30 tablet, 1 Refills, Maintenance, 07/10/21 17:25:00 EDT, Tablet, [facility] #[id number], 162, cm, 06/19/21 15:40:00 EDT, Height, 86.3, kg, 09/29/20 15:30:00 EDT, Dry Weight Start Date: 07/10/21 Status: Ordered multivitamin with iron Multiple Vitamins with Iron oral tablet 1 tablet, By Mouth, Daily, # 30 tablet, 11 Refills, Maintenance, 04/17/22 7:51:00 EST, Tablet, [facility] #[id number], 1 tablet By Mouth Daily, 162.56, cm, 04/16/22 16:00:00 EST, Height, 87.6, kg, 10/24/21 8:00:00 EDT, Dry Weight Start Date: 04/17/22 Status: Ordered Narcan 4 mg/0.1 mL nasal spray = 4 mg, Inhalation, Once, # 2 each, 1 Refills, Soft Stop, 10/29/20 12:23:00 EDT, [facility] #[id number], Partial fill upon patient request if the prescription is for a schedule II opioid drug., 162, cm, 09/29/20 15:30:00 EDT, Height, 86.3, kg, 08... Start Date: 10/29/20 Status: Ordered ondansetron 4 mg oral tablet 1 tablet = 4 mg, By Mouth, Daily, PRN Nausea & Vomiting, # 10 tablet, 3 Refills, Maintenance, 04/16/22 17:07:00 EST, [facility] #[id number], 162.56, cm, 04/16/22 16:00:00 EST, Height, 87.6, [...] each, 0 Refills, Maintenance, 06/04/20 16:46:00 EDT, [facility] #[id number], OK to sub for any gallon prep, used as directed, 162.56, cm, 05/23/20 14:31:00 EDT, Height, 77, kg, 03/21/20 15:04:00 EST, Dry We... Start Date: 06/04/20 Status: Ordered Senna 8.6 mg oral tablet 1-3 tablet, By Mouth, Daily, for constipation, # 90 tablet, Refills 5, Tot. Refills 5, Maintenance,03/26/20 15:25:00 EST, Route to Pharmacy Electronically, [facility] #[id number] Tablet, 162.56, cm, 03/21/20 15:01:00 EST, Height, [...] tablet, 5 Refills, Maintenance, 04/17/22 7:53:00 EST, [facility] #[id number], 162.56, cm, 04/16/22 16:00:00 EST, Height, 87.6, kg, 10/24/21 8:00:00 EDT, Dry Weight Start Date: 04/17/22 Status: Ordered Suboxone 8 mg-2 mg Sublingual Film 2.5 film, Sublingual, Daily, dissolve under the tongue increase in dose [id number], # 35 film, 0 Refills, Maintenance, 08/22/21 9:27:00 EDT, Film,[facility], 2.5 film Subli... Start Date: 08/22/21 Stop Date: 09/05/21 Status: Ordered Suboxone 8 mg-2 mg Sublingual Film 2 film, Sublingual, Daily, dissolve under the tongue may fill less due 05/27/2022, # 14 film, 0 Refills, Maintenance, 05/28/22 8:17:00 EDT, Film, [facility], 2 film Sublingual Daily,x7 days,Instr:dissolve under the tongue; june fi... Start Date: 05/28/22 Stop Date: 06/04/22 Status: Ordered SUMAtriptan 25 mg oral tablet 1 tablet = 25 mg, By Mouth, Daily, PRN as needed for migraine headache, may repeat dose after 2 hours up to a maximum of 2, # 6 tablet, 1 Refills, Maintenance, 03/02/20 19:47:00 EST, Tablet, [facility] #[id number], 162.56, cm, 01/04/20 9:40:00 ES... 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 2genotype 02/02: [id number] is only mutation detected 3death of sister, caring for mother w/ dementia 4repeat screening colonoscopy in 2020 Social History Social History Type Response Smoking Status Former smoker, quit more than 30 days ago entered on: 12/05/21 Sex Patient Care team information Care Team Personnel Name: Kahlil Sun MD Position: [facility] Primary Care Physician Member Role: PCP Address: Address: [address] [place] [address]- Name: Sharri Prince Position: [facility] PCO Associate Professional Member Role: Lifetime Consulting Provider Care Team Related Persons Name: MENDOZA, SHANITA Address: [address] [place] [address] Name: SHANITA EMNDOZA Address: home [address] Name: ULICES PEARSON Name: ULICES ESPARZA Address: [place] [address] Name: LALA LI
--- OUTSIDE RECORDS SUMMARY | 2022-12-13 21:31 | XMS_ITS | Continuity of Care Document ---
Author Name Unknown Organization [facility] Address [address] [place] [address]- Care Team Providers Care Hygiene Coordinator Name Role Phone Kahlil Sun MD Primary Care Physician [phone] Encounter [facility] Date(s): 10/22/21 - 11/21/21 [facility] [place] [address]- [place] Allergies, Adverse Reactions, Alerts Substance Reaction [...] influenza virus vaccine, inactivated 6 11/18/11 Gi felicaino influenza virus vaccine, inactivated 11/20/09 Give n [...] events reported or observed. 2Result Comment: #2, [facility] 3Result Comment: [facility] 4Result Comment: pharmacy 5Location History: [facility] 6Admin Note: vis 08/31/11 7Admin Note: ADMIN.BY RN 8Result Comment: [facility] 9Admin Note: Admin. by RN 10Admin Note: Admin. by RN 11Admin Note: Admin. 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 USE... Start Date: 11/13/20 Status: Ordered albuterol 0.083% inhalation solution 3 mL = 2.5 mg, Inhalation, Every 6 hours, PRN Wheezing/Shortness of Breath, # 60 each, 0 Refills, Maintenance, 06/07/20 12:51:00 EDT, Solution, [facility] #[id number], 162.56, cm, 05/23/20 14:31:00 EDT, Height, 77, [...] tablet, 3 Refills, Maintenance, 06/13/21 22:19:00 EDT, [facility] #[id number], 1 tablet By Mouth Daily, 162, cm, [...] 1 Refills, Maintenance, 07/10/21 18:35:00 EDT, Tablet, [facility] #[id number], Partial fill upon patient request if the prescription is for a schedule II opioid drug., 162, cm, 06/19/21 15:40:00 EDT... Start Date: 07/10/21 Status: Ordered cloNIDine 0.1 mg oral tablet 0.1 mg, 1, tablet, By Mouth, 3 times a day, as needed for anxiety, # 25 tablet, Refills 0, Tot. Refills 0, Maintenance, 10/10/19 21:36:00 EDT, Route to Pharmacy Electronically, [facility] #[id number], 162.56, cm, 10/09/19 10:36:00 EDT, Height, 72... Start Date: 10/10/19 Status: Ordered diclofenac 1% topical gel = 2 Gm, Topically, 4 times a day, PRN for pain, not to exceed: 10 gm/day, # 100 Gm, 1 Refills, Maintenance, 05/29/21 16:52:00 EDT, Gel, [facility], Partial fill upon patient request if the prescription is for a schedule II opioid... Start Date: 05/29/21 Status: Ordered Dulera 200 mcg-5 mcg/inh inhalation aerosol 2 puffs, Inhalation, 2 times a day, # 1 each, 3 Refills, Maintenance, 01/28/21 16:44:00 EST, Aerosol, [facility], STOP FLOVENT, 2 puffs Inhalation 2 times a day,x30 days, 162, cm,01/28/21 16:02:00 EST, Height, 86.3, kg, 09/29/20 1... Start Date: 01/28/21 Stop Date: 05/28/21 Status: Ordered escitalopram 10 mg oral tablet 1 tablet = 10 mg, By Mouth, Daily, # 30 tablet, 11 Refills, Maintenance, 07/31/21 17:50:00 EDT, Tablet, [facility] #[id number], Partial fill upon patient request if the [...] Gm, 5 Refills, Maintenance, 07/19/19 15:19:00 EDT, [place], [facility] #[id number], 2 sprays Nares, Both Daily in AM,x30 [...] 04/24/21 12:37:00 EST, Route to Pharmacy Electronically, [facility] #[id number], STOP HCTZ, 162, cm, 03/24/21 18:41:00 EST, [...] 1 each, Maintenance, covering for [facility] Blood pressure monitor neededto monitor blood pressure DX: hypertension, 07/11/18 17:28:42 EDT, Compound Start Date: 07/11/18 Status: Ordered humidifier humidifier, See Instructions, # 1 each, Refills 0, Tot. Refills 0, Maintenance, use as directed forchronic sinusitis J32, 04/09/17 14:21:37 EST, Compound Start Date: 04/09/17 Status: Ordered losartan 100 mg oral tablet 1 tablet, By Mouth, Daily, # 30 tablet, 5 Refills, [facility] #[id number], 162, cm, 10/09/21 16:19:00 EDT, Height, 86.3, kg, 09/29/20 15:30:00 EDT, Dry Weight Start Date: 10/20/21 Status: Ordered meclizine 25 mg oral tablet 1 tablet = 25 mg, By Mouth, 2 times a day, # 30 tablet, 1 Refills, Maintenance, 07/10/21 17:25:00 EDT, Tablet, [facility] #[id number], 162, cm, 06/19/21 15:40:00 EDT, Height, 86.3, kg, 09/29/20 15:30:00 EDT, Dry Weight Start Date: 07/10/21 Status: Ordered multivitamin with iron Multiple Vitamins with Iron oral tablet 1 tablet, By Mouth, Daily, # 30 tablet, 11 Refills, Maintenance, 09/06/21 19:08:00 EDT, Tablet, [facility] #[id number], 1 tablet By Mouth Daily, 162, cm, 07/31/21 16:00:00 EDT, Height, 86.3, kg,09/29/20 15:30:00 EDT, Dry Weight Start Date: 09/06/21 Status: Ordered Narcan 4 mg/0.1 mL nasal spray = 4 mg, Inhalation, Once, # 2 each, 1 Refills, Soft Stop, 10/29/20 12:23:00 EDT, [facility] #[id number], Partial fill upon patient request if the prescription is for a schedule II opioid drug., 162, cm, 09/29/20 15:30:00 EDT, Height, 86.3, kg, 08... Start Date: 10/29/20 Status: Ordered ondansetron 4 mg oral tablet 1 tablet = 4 mg, By Mouth, Daily, PRN Nausea & Vomiting, # 10 tablet, 3 Refills, Maintenance, 10/08/21 22:17:00 EDT, [facility] #[id number], 162, cm, 10/09/21 16:19:00 EDT, Height, 86.3, kg,09/29/20 15:30:00 EDT, Dry Weight Start Date: 10/08/21 Status: Ordered pantoprazole 20 mg oral delayed release tablet See Instructions, TAKE 2 TABLET BY MOUTH DAILY IN THE MORNING TAKE 30 MINUTES BEFORE FIRST MEAL for2 wks then return to 1 daily as per existing Rx, # 30 tablet, 0 Refills, 10/09/21 22:19:00 EDT, 162, cm, 10/09/21 16:19:00 EDT, Height, 86.3, kg, 09/29... Start Date: 10/09/21 Status: Ordered pantoprazole 20 mg oral delayed [...] each, 0 Refills, Maintenance, 06/04/20 16:46:00 EDT, [facility] #[id number], OK to sub for any gallon prep, used as directed, 162.56, cm, 05/23/20 14:31:00 EDT, Height, 77, kg, 03/21/20 15:04:00 EST, Dry We... Start Date: 06/04/20 Status: Ordered Senna 8.6 mg oral tablet 1-3 tablet, By Mouth, Daily, for constipation, # 90 tablet, Refills 5, Tot. Refills 5, Maintenance,03/26/20 15:25:00 EST, Route to Pharmacy Electronically, [facility] #[id number] Tablet, 162.56, cm, 03/21/20 15:01:00 EST, Height, [...] 5 Refills, Maintenance, 04/24/21 12:36:00 EST, Tablet, [facility] #[id number], STOP HCTZ, 162, cm, 03/24/21 18:41:00 EST, Height, 86.3, kg, 09/29/20 15:30:00 EDT, Dry Weight Start Date: 04/24/21 Stop Date: 10/21/21 Status: Ordered Suboxone 8 mg-2 mg Sublingual Film 2.5 film, Sublingual, Daily, dissolve under the tongue increase in dose [place] [id number] due on/after 09/25/2021, # 70 film, 0 Refills, Maintenance, 09/25/21 14:31:00 EDT, Film, [facility], 2.5 film Sublingual Daily,x28 days,In... Start Date: 09/25/21 Stop Date: 10/23/21 Status: Ordered Suboxone 8 mg-2 mg Sublingual Film 2.5 film, Sublingual, Daily, dissolve under the tongue increase in dose [place] [id number] coveringfor [place] due on/after 08/22/2021, # 35 film, 0 Refills, Maintenance, 08/22/21 9:27:00 EDT, Film,[facility], 2.5 film Subli... Start Date: 08/22/21 Stop Date: 09/05/21 Status: Ordered SUMAtriptan 25 mg oral tablet 1 tablet = 25 mg, By Mouth, Daily, PRN as needed for migraine headache, may repeat dose after 2 hours up to a maximum of 2, # 6 tablet, 1 Refills, Maintenance, 03/02/20 19:47:00 EST, Tablet, [facility] #[id number], 162.56, cm, 01/04/20 9:40:00 ES... Start Date: 03/02/20 Status: Ordered zolpidem 5 mg oral tablet 1 tablet = 5 mg, By Mouth, Daily at bedtime, PRN as needed for sleep, # 30 tablet, 1 Refills, Maintenance, 10/09/21 22:14:00 EDT, [facility] #[id number], 162, cm, 10/09/21 16:19:00 EDT, Height, 86.3, kg, 09/29/20 15:30:00 EDT, Dry Weight Start Date: 10/09/21 Status: Ordered Problem List Condition Effective Dates [...] Obese class I(Confirmed) Active Opioid dependence(Confirmed) Active *[id number] Care Partn er April Saavedra(Confirmed) Active Health [...] tolerance, and QD need over. 2genotype 02/02: [id number] is only mutation detected 3death of sister, caring for mother w/ dementia 4repeat screening colonoscopy in 2020 Social History Social History Type Response Smoking Status Former smoker, quit more than 30 days ago entered on: 10/29/20 Sex Care Team Personnel Name: Kahlil Sun MD Address: [address] [place] [address]
--- OUTSIDE RECORDS SUMMARY | 2022-12-13 21:31 | XMS_ITS | Continuity of Care Document ---
Author Name Unknown Organization [facility] Address [address] [place] [address]- Care Team Providers Care Shank Skinner Name Role Phone Kahlil Sun MD Primary Care Physician Encounter [facility] Date(s): 04/09/22 - 05/09/22 [facility] [address]- Attending Physician: Ryan Orozco NP Admitting Physician: Ryan Orozco NP Allergies, Adverse Reactions, Alerts Substance Reaction [...] 08/31/11 7Admin Note: ADMIN.BY RN 8Result Comment: [facility] 9Admin Note: Admin. by RN 10Admin [...] 5 Refills, Maintenance, 12/05/21 14:43:00EDT, CR Tablet, [facility] #[id number], Partial fill upon patient request if the prescription is for a schedule II opioid drug., 162.56, cm, 12/05... Start Date: 12/05/21 Status: Ordered acyclovir 400 mg oral tablet 1 tablet = 400 mg, By Mouth, 2 times a day, # 10 tablet, 5 Refills, Maintenance, 01/08/21 18:41:00 EST, [facility] #[id number], 162, cm, 12/17/20 23:19:00 EDT, Height, 86.3, kg, 09/29/20 15:30:00 EDT, Dry Weight Start Date: 01/08/21 Stop Date: 02/07/21 Status: Ordered Albuterol (Eqv-ProAir HFA) 90 mcg/inh inhalation aerosol 2 puffs, Inhalation, Every 4 hours, PRN NEEDED FOR WHEEZING/SHORTNESS OF BREATH, USE WITH SPACERCHAMBER, # 8.5 Gm, 5 Refills, [facility] #[id number], 16, INHALE 2 PUFFS INTO LUNGS EVERY 4 HOURS NEEDED FOR WHEEZING/SHORTNESS OF BREATH. USE... Start Date: 11/13/20 Status: Ordered albuterol 0.083% inhalation solution 3 mL = 2.5 mg, Inhalation, Every 6 hours, PRN Wheezing/Shortness of Breath, # 60 each, 0 Refills, Maintenance, 06/07/20 12:51:00 EDT, Solution, [facility] #[id number], 162.56, cm, 05/23/20 14:31:00 EDT, Height, 77, [...] 01/04/22 19:11:00 EST, Route to Pharmacy Electronically, [facility] #10621, 162.56, cm, 11/0... Start Date: 01/04/22 Status: Ordered Biktarvy oral tablet 1 tablet, By Mouth, Daily, # 30 tablet, 12 Refills, Maintenance, 04/17/22 7:54:00 EST, [facility] #[id number], 1 tablet By Mouth Daily, 162.56, cm, [...] 1 Refills, Maintenance, 07/10/21 18:35:00 EDT, Tablet, [facility] #01810, Partial fill upon patient request if the prescription is for a schedule II opioid drug., 162, cm, 06/19/21 15:40:00 EDT... Start Date: 07/10/21 Status: Ordered cloNIDine 0.1 mg oral tablet 1, tablet, By Mouth, 3 times a day, PRN, # 270 tablet, Refills 0, Maintenance, NEEDED FOR ANXIETY, 04/29/22 16:27:00 EST, Route to Pharmacy Electronically, [facility] #[id number], 162.56, cm,04/16/22 16:00:00 EST, Height, 87.6, kg, 10/24/21 8... Start Date: 04/29/22 Status: Ordered Colace Clear 50 mg oral capsule 1 capsule = 50 mg, By Mouth, 2 times a day, PRN as needed for constipation, # 60 capsule, 0 Refills, Maintenance, 12/05/21 15:09:00 EDT, [facility] #[id number], Partial fill upon patient requestif the prescription is for a schedule II opioid nhi... Start Date: 12/05/21 Status: Ordered diclofenac 1% topical gel = 2 Gm, Topically, 4 times a day, PRN for pain, not to exceed: 10 gm/day, # 100 Gm, 1 Refills, Maintenance, 05/29/21 16:52:00 EDT, Gel, [facility], Partial fill upon patient request if the prescription is for a schedule II opioid... Start Date: 05/29/21 Status: Ordered Dulera 200 mcg-5 mcg/inh inhalation aerosol 2 puffs, Inhalation, 2 times a day, # 1 each, 3 Refills, Maintenance, 01/28/21 16:44:00 EST, Aerosol, [facility], STOP FLOVENT, 2 puffs Inhalation 2 times a day,x30 days, 162, cm,01/28/21 16:02:00 EST, Height, 86.3, kg, 09/29/20 1... Start Date: 01/28/21 Stop Date: 05/28/21 Status: Ordered escitalopram 10 mg oral tablet 1 tablet = 10 mg, By Mouth, Daily, # 30 tablet, 11 Refills, Maintenance, 04/16/22 16:59:00 EST, Tablet, [facility] #00223, Partial fill upon patient request if the [...] Gm, 5 Refills, Maintenance, 07/19/19 15:19:00 EDT, [place], [facility] #31403, 2 sprays Nares, Both Daily in AM,x30 [...] Replace Required Details, Route to Pharmacy Electronically, [facility] #[id number], 162.56, cm,... Start Date: 11/27/21 Status: Ordered [...] Replace Required Details, Route to Pharmacy Electronically, [facility] . Start Date: 04/16/22 Status: Ordered Glucose [...] # 1 each, Maintenance, [facility] Blood pressure monitor neededto monitor blood pressure DX: hypertension, 07/11/18 17:28:42 EDT, Compound Start Date: 07/11/18 Status: Ordered humidifier humidifier, See Instructions, # 1 each, Refills 0, Tot. Refills 0, Maintenance, use as directed forchronic sinusitis J32, 04/09/17 14:21:37 EST, Compound Start Date: 04/09/17 Status: Ordered losartan 100 mg oral tablet 1 tablet, By Mouth, Daily, # 30 tablet, 5 Refills, [facility] #[id number], 162, cm, 10/09/21 16:19:00 EDT, Height, 86.3, kg, 09/29/20 15:30:00 EDT, Dry Weight Start Date: 10/20/21 Status: Ordered meclizine 25 mg oral tablet 1 tablet = 25 mg, By Mouth, 2 times a day, # 30 tablet, 1 Refills, Maintenance, 07/10/21 17:25:00 EDT, Tablet, [facility] #[id number], 162, cm, 06/19/21 15:40:00 EDT, Height, 86.3, kg, 09/29/20 15:30:00 EDT, Dry Weight Start Date: 07/10/21 Status: Ordered multivitamin with iron Multiple Vitamins with Iron oral tablet 1 tablet, By Mouth, Daily, # 30 tablet, 11 Refills, Maintenance, 04/17/22 7:51:00 EST, Tablet, [facility] #65361, 1 tablet By Mouth Daily, 162.56, cm, 04/16/22 16:00:00 EST, Height, 87.6, kg, 10/24/21 8:00:00 EDT, Dry Weight Start Date: 04/17/22 Status: Ordered Narcan 4 mg/0.1 mL nasal spray = 4 mg, Inhalation, Once, # 2 each, 1 Refills, Soft Stop, 10/29/20 12:23:00 EDT, [facility] #[id number], Partial fill upon patient request if the prescription is for a schedule II opioid drug., 162, cm, 09/29/20 15:30:00 EDT, Height, 86.3, kg, 08... Start Date: 10/29/20 Status: Ordered ondansetron 4 mg oral tablet 1 tablet = 4 mg, By Mouth, Daily, PRN Nausea & Vomiting, # 10 tablet, 3 Refills, Maintenance, 04/16/22 17:07:00 EST, [facility] #[id number], 162.56, cm, 04/16/22 16:00:00 EST, Height, 87.6, [...] each, 0 Refills, Maintenance, 06/04/20 16:46:00 EDT, [facility] #21523, OK to sub for any gallon prep, used as directed, 162.56, cm, 05/23/20 14:31:00 EDT, Height, 77, kg, 03/21/20 15:04:00 EST, Dry We... Start Date: 06/04/20 Status: Ordered Senna 8.6 mg oral tablet 1-3 tablet, By Mouth, Daily, for constipation, # 90 tablet, Refills 5, Tot. Refills 5, Maintenance,03/26/20 15:25:00 EST, Route to Pharmacy Electronically, [facility] #[id number] Tablet, 162.56, cm, 03/21/20 15:01:00 EST, Height, [...] tablet, 5 Refills, Maintenance, 04/17/22 7:53:00 EST, [facility] #[id number], 162.56, cm, 04/16/22 16:00:00 EST, Height, 87.6, kg, 10/24/21 8:00:00 EDT, Dry Weight Start Date: 04/17/22 Status: Ordered Suboxone 8 mg-2 mg Sublingual Film 2.5 film, Sublingual, Daily, for 4 days, dissolve under the tongue may fill less due 05/08/2022, # 10 film, 0 Refills, Hard Stop 05/12/22 2:02:00 EDT, 05/08/22 2:02:00 EST, Film, [facility], 162.56, cm, 05/07/22 12:32:00 EST, Hei... Start Date: 05/08/22 Stop Date: 05/12/22 Status: Ordered Suboxone 8 mg-2 mg Sublingual Film 2 film, Sublingual, Daily, dissolve under the tongue may fill less due 05/12/2022, # 14 film, 0 Refills, Maintenance, 05/12/22 2:02:00 EDT, Film, [facility], 2 film Sublingual Daily,x7 days,Instr:dissolve under the tongue; may fi... Start Date: 05/12/22 Stop Date: 05/19/22 Status: Ordered Suboxone 8 mg-2 mg Sublingual Film 2.5 film, Sublingual, Daily, dissolve under the tongue increase in dose [place] [id number] coveringfor Dino due on/after 08/22/2021, # 35 film, 0 Refills, Maintenance, 08/22/21 9:27:00 EDT, Film,[facility], 2.5 film Subli... Start Date: 08/22/21 Stop Date: 09/05/21 Status: Ordered SUMAtriptan 25 mg oral tablet 1 tablet = 25 mg, By Mouth, Daily, PRN as needed for migraine headache, may repeat dose after 2 hours up to a maximum of 2, # 6 tablet, 1 Refills, Maintenance, 03/02/20 19:47:00 EST, Tablet, [facility] #[id number], 162.56, cm, 01/04/20 9:40:00 ES... 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 2genotype 02/02: [id number] is only mutation detected 3death of sister, caring for mother w/ dementia 4repeat screening colonoscopy in 2020 Social History Social History Type Response Smoking Status Former smoker, quit more than 30 days ago entered on: 12/05/21 Sex Patient Care team information Care Team Personnel Name: Kahlil Sun MD Position: [facility] Primary Care Physician Member Role: PCP Address: Address: [address] [place] [address] Name: Sharri Prince Position: [facility] PCO Associate Professional Member Role: Lifetime Consulting Provider Care Team Related Persons Name: SHANITA MENDOZA Address: [address] [place] [address] Name: SHANITA MENDOZA [facility] Address: home [address] Name: ULICES PEARSON Name: ULICES ESPARZA Address: [place] [address] Name: LALA LI
--- OUTSIDE RECORDS SUMMARY | 2022-12-13 21:31 | XMS_ITS | Continuity of Care Document ---
Author Name Unknown Organization 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 [address]- Attending Physician: Vida Goldsmith NP Admitting Physician: [...] [facility] 4Result Comment: pharmacy 5Location History: [facility] 6Admin Note: vis 08/31/11 7Admin Note: ADMIN.BY RN 8Result Comment: [facility] 9Admin Note: Admin. by RN [...] 5 Refills, Maintenance, 12/05/21 14:43:00EDT, CR Tablet, [facility] #[id number], Partial fill upon patient request if the prescription is for a schedule II opioid drug., 162.56, cm, 12/05... Start Date: 12/05/21 Status: Ordered acyclovir 400 mg oral tablet 1 tablet = 400 mg, By Mouth, 2 times a day, # 10 tablet, 5 Refills, Maintenance, 01/08/21 18:41:00 EST, [facility] #[id number], 162, cm, 12/17/20 23:19:00 EDT, Height, 86.3, kg, 09/29/20 15:30:00 EDT, Dry Weight Start Date: 01/08/21 Stop Date: 02/07/21 Status: Ordered Albuterol (Eqv-ProAir HFA) 90 mcg/inh inhalation aerosol 2 puffs, Inhalation, Every 4 hours, PRN NEEDED FOR WHEEZING/SHORTNESS OF BREATH, USE WITH SPACERCHAMBER, # 8.5 Gm, 5 Refills, [facility] #[id number], 16, INHALE 2 PUFFS INTO LUNGS EVERY 4 HOURS NEEDED FOR WHEEZING/SHORTNESS OF BREATH. USE... Start Date: 11/13/20 Status: Ordered albuterol 0.083% inhalation solution 3 mL = 2.5 mg, Inhalation, Every 6 hours, PRN Wheezing/Shortness of Breath, # 60 each, 0 Refills, Maintenance, 06/07/20 12:51:00 EDT, Solution, [facility] #[id number], 162.56, cm, 05/23/20 14:31:00 EDT, Height, 77, [...] 01/04/22 19:11:00 EST, Route to Pharmacy Electronically, [facility] #[id number], 162.56, cm, 11/0... Start Date: 01/04/22 Status: Ordered Biktarvy oral tablet 1 tablet, By Mouth, Daily, # 30 tablet, 12 Refills, Maintenance, 04/17/22 7:54:00 EST, [facility] #[id number], 1 tablet By Mouth Daily, 162.56, cm, [...] 1 Refills, Maintenance, 07/10/21 18:35:00 EDT, Tablet, [facility] #[id number], Partial fill upon patient request if the prescription is for a schedule II opioid drug., 162, cm, 06/19/21 15:40:00 EDT... Start Date: 07/10/21 Status: Ordered cloNIDine 0.1 mg oral tablet 1, tablet, By Mouth, 3 times a day, PRN, # 270 tablet, Refills 0, Maintenance, NEEDED FOR ANXIETY, 04/29/22 16:27:00 EST, Route to Pharmacy Electronically, [facility] #[id number], 162.56, cm,04/16/22 16:00:00 EST, Height, 87.6, kg, 10/24/21 8... Start Date: 04/29/22 Status: Ordered Colace Clear 50 mg oral capsule 1 capsule = 50 mg, By Mouth, 2 times a day, PRN as needed for constipation, # 60 capsule, 0 Refills, Maintenance, 12/05/21 15:09:00 EDT, [facility] #[id number], Partial fill upon patient requestif the prescription is for a schedule II opioid nhi... Start Date: 12/05/21 Status: Ordered diclofenac 1% topical gel = 2 Gm, Topically, 4 times a day, PRN for pain, not to exceed: 10 gm/day, # 100 Gm, 1 Refills, Maintenance, 05/29/21 16:52:00 EDT, Gel, [facility], Partial fill upon patient [...] 11 Refills, Maintenance, 04/16/22 16:59:00 EST, Tablet, [facility] #61356, Partial fill upon patient request if the [...] Gm, 5 Refills, Maintenance, 07/19/19 15:19:00 EDT, [place], [facility] #07044, 2 sprays Nares, Both Daily in AM,x30 [...] Replace Required Details, Route to Pharmacy Electronically, [facility] #[id number], 162.56, cm,... Start Date: 11/27/21 Status: Ordered [...] Replace Required Details, Route to Pharmacy Electronically, [facility] . Start Date: 04/16/22 Status: Ordered Glucose [...] # 1 each, Maintenance, [facility] Blood pressure monitor neededto monitor blood pressure DX: hypertension, 07/11/18 17:28:42 EDT, Compound Start Date: 07/11/18 Status: Ordered humidifier humidifier, See Instructions, # 1 each, Refills 0, Tot. Refills 0, Maintenance, use as directed forchronic sinusitis J32, 04/09/17 14:21:37 EST, Compound Start Date: 04/09/17 Status: Ordered losartan 100 mg oral tablet 1 tablet, By Mouth, Daily, # 30 tablet, 5 Refills, [facility] #02205, 162, cm, 10/09/21 16:19:00 EDT, Height, 86.3, kg, 09/29/20 15:30:00 EDT, Dry Weight Start Date: 10/20/21 Status: Ordered meclizine 25 mg oral tablet 1 tablet = 25 mg, By Mouth, 2 times a day, # 30 tablet, 1 Refills, Maintenance, 07/10/21 17:25:00 EDT, Tablet, [facility] #68348, 162, cm, 06/19/21 15:40:00 EDT, Height, 86.3, kg, 09/29/20 15:30:00 EDT, Dry Weight Start Date: 07/10/21 Status: Ordered multivitamin with iron Multiple Vitamins with Iron oral tablet 1 tablet, By Mouth, Daily, # 30 tablet, 11 Refills, Maintenance, 04/17/22 7:51:00 EST, Tablet, [facility] #13512, 1 tablet By Mouth Daily, 162.56, cm, 04/16/22 16:00:00 EST, Height, 87.6, kg, 10/24/21 8:00:00 EDT, Dry Weight Start Date: 04/17/22 Status: Ordered Narcan 4 mg/0.1 mL nasal spray = 4 mg, Inhalation, Once, # 2 each, 1 Refills, Soft Stop, 10/29/20 12:23:00 EDT, [facility] #09705, Partial fill upon patient request if the prescription is for a schedule II opioid drug., 162, cm, 09/29/20 15:30:00 EDT, Height, 86.3, kg, 08... Start Date: 10/29/20 Status: Ordered ondansetron 4 mg oral tablet 1 tablet = 4 mg, By Mouth, Daily, PRN Nausea & Vomiting, # 10 tablet, 3 Refills, Maintenance, 04/16/22 17:07:00 EST, [facility] #[id number], 162.56, cm, 04/16/22 16:00:00 EST, Height, 87.6, [...] each, 0 Refills, Maintenance, 06/04/20 16:46:00 EDT, [facility] #11961, OK to sub for any gallon prep, used as directed, 162.56, cm, 05/23/20 14:31:00 EDT, Height, 77, kg, 03/21/20 15:04:00 EST, Dry We... Start Date: 06/04/20 Status: Ordered Senna 8.6 mg oral tablet 1-3 tablet, By Mouth, Daily, for constipation, # 90 tablet, Refills 5, Tot. Refills 5, Maintenance,03/26/20 15:25:00 EST, Route to Pharmacy Electronically, [facility] #04439 Tablet, 162.56, cm, 03/21/20 15:01:00 EST, Height, [...] tablet, 5 Refills, Maintenance, 04/17/22 7:53:00 EST, [facility] #50947, 162.56, cm, 04/16/22 16:00:00 EST, Height, 87.6, kg, 10/24/21 8:00:00 EDT, Dry Weight Start Date: 04/17/22 Status: Ordered Suboxone 8 mg-2 mg Sublingual Film 2.5 film, Sublingual, Daily, for 4 days, dissolve under the tongue may fill less due 05/08/2022, # 10 film, 0 Refills, Hard Stop 05/12/22 2:02:00 EDT, 05/08/22 2:02:00 EST, Film, [facility], 162.56, cm, 05/07/22 12:32:00 EST, Hei... Start Date: 05/08/22 Stop Date: 05/12/22 Status: Ordered Suboxone 8 mg-2 mg Sublingual Film 2 film, Sublingual, Daily, dissolve under the tongue may fill less due 05/12/2022, # 14 film, 0 Refills, Maintenance, 05/12/22 2:02:00 EDT, Film, [facility], 2 film Sublingual Daily,x7 days,Instr:dissolve under the tongue; may fi... Start Date: 05/12/22 Stop Date: 05/19/22 Status: Ordered Suboxone 8 mg-2 mg Sublingual Film 2.5 film, Sublingual, Daily, dissolve under the tongue increase in dose [place] [id number] coveringfor Dino due on/after 08/22/2021, # 35 film, 0 Refills, Maintenance, 08/22/21 9:27:00 EDT, Film,[facility], 2.5 film Subli... Start Date: 08/22/21 Stop Date: 09/05/21 Status: Ordered SUMAtriptan 25 mg oral tablet 1 tablet = 25 mg, By Mouth, Daily, PRN as needed for migraine headache, may repeat dose after 2 hours up to a maximum of 2, # 6 tablet, 1 Refills, Maintenance, 03/02/20 19:47:00 EST, Tablet, [facility] #73265, 162.56, cm, 01/04/20 9:40:00 ES... Start Date: 03/02/20 Status: Ordered zolpidem 5 mg oral tablet 1 tablet = 5 mg, By Mouth, Daily at bedtime, PRN as needed for sleep, # 30 tablet, 1 Refills, Maintenance, 04/16/22 17:06:00 EST, [facility] #68795, 162.56, cm, 04/16/22 16:00:00 EST, Height, 87.6, [...] disorder Confirmed Active Opioid dependence Confirmed Active *[id number] Statement Processor April Quentin Confirmed Active Health care maintenance [...] tolerance, and QD need over. 2genotype 02/02: [id number] is only mutation detected 3death of sister, caring for mother w/ dementia 4repeat screening colonoscopy in 2020 Social History Social History Type Response Smoking Status Former smoker, quit more than 30 days ago entered on: 12/05/21 Sex Patient Care team information Care Team Personnel Name: Kahlil Sun MD Position: [facility] Primary Care Physician Member Role: PCP Address: Address: [address] [place] [address] Name: Sharri Prince Position: [facility] PCO Associate Professional Member Role: Lifetime Consulting Provider Care Team Related Persons Name: SHANITA MENDOZA Address: [address] [place] [address] Name: SHANITA MENDOZA [facility] Address: home [address] Name: ULICES PEARSON Name: ULICES ESPARZA Address: [place] [address] Name: LALA LI
--- OUTSIDE RECORDS SUMMARY | 2022-12-13 21:31 | XMS_ITS | Continuity of Care Document ---
Author Name Unknown Organization 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 [address] [place] [address]- [facility] Attending Physician: Admtr, Ar8 Admitting Physician: [...] Note: LITO san[employer]i-[employer]ur 13Admin Note: ADMIN LILLIAN COTNRERAS 14Admin Note: BY LEXI Agudelo 15Admin Note: [...] 0 Refills, Maintenance, 06/07/19 14:59:00 EDT, Solution, [facility] #[id number], 162.56, cm, 05/03/19 16:30:00 EST, Height, 72.3, kg, 09/26/18 16:01:00 EDT, Start Date: 06/07/19 Status: Ordered Bactrim 400 mg-80 mg oral tablet 1 tablet, By Mouth, 2 times a day, # 14 tablet, 0 Refills, Acute 12/09/19 15:46:00 EDT, 06/13/19 15:46:00 EDT, Tablet, [facility] #[id number], 1 tablet By Mouth 2 times a [...] sublingual film 0.25 each, Sublingual, Daily, Dino [id number], # 4 film, 0 Refills, Maintenance, 05/16/19 23:15:00 EDT, [facility] #80539, Partial fill on request., 0.25 each Sublingual Daily,Instr:Dino [id number], 162.56, cm, 05/03/19 16:30:00 EST, Hei... Start Date: 05/16/19 Status: Ordered cetirizine 10 mg oral tablet 1 tablet = 10 mg, By Mouth, Daily, For allergies., # 30 tablet, 0 Refills, Maintenance, 06/07/19 14:58:00 EDT, Tablet, [facility] #61172, 162.56, cm, 05/03/19 16:30:00 EST, Height, 72.3, kg, 09/26/18 16:01:00 EDT, Dry Weight Start Date: 06/07/19 Status: Ordered Flonase 50 mcg/inh nasal spray 2 sprays, Nares, Both, Daily in AM, # 16 Gm, 0 Refills, Maintenance, 06/07/19 14:55:00 EDT, [place], [facility] #14514, 2 sprays Nares, Both Daily in AM,x30 [...] 2 Refills, Maintenance, 05/29/19 21:12:00 EDT, Tablet, [facility] #[id number], 30 day supply preferred for present, 162.56, [...] 05/12/18 14:45:33 EDT, Route to Pharmacy Electronically, [id number], [facility] Start Date: 05/12/18 Status: Ordered LORazepam 0.5 mg oral tablet 0.5 tablet = 0.25 mg, By Mouth, 2 times a day, PRN as needed for anxiety, # 20 tablet, 1 Refills, Maintenance, 05/16/19 23:11:00 EDT, Tablet, [facility] #[id number], 162.56, cm, 05/03/19 16:30:00 EST, Height, 72.3, kg, 09/26/18 16:01:00 EDT, Dry... Start Date: 05/16/19 Status: Ordered losartan 50 mg oral tablet 1 tablet = 50 mg, By Mouth, Daily, # 30 tablet, 5 Refills, Maintenance, 04/28/19 0:32:00 EST, Tablet, [facility] #[id number], 162.56, cm, 04/24/19 16:09:00 EST, Height, 72.3, kg, 09/26/18 16:01:00 EDT, Dry Weight Start Date: 04/28/19 Status: Ordered meclizine 25 mg oral tablet 1 tablet = 25 mg, By Mouth, 2 times a day, # 30 tablet, 1 Refills, Maintenance, 03/30/19 15:49:00 EST, Tablet, [facility] #[id number], 162.56, cm, 03/08/19 14:34:00 EST, Height, 72.3, [...] 15:00:00 EDT, Aerosol, Route to Pharmacy Electronically, [id number], [facility] #[id number], 1... Start Date: 06/07/19 Status: Ordered Senna 8.6 mg oral tablet 1-3 tablet, By Mouth, Daily, for constipation, # 90 tablet, Refills 5, Tot. Refills 5, Maintenance,02/17/18 15:12:45 EST, Route to Pharmacy Electronically, [id number], [facility] Tablet Start Date: 02/17/18 Status: Ordered Spacer for inhalers Spacer for inhalers, See Instructions, # 1 each, Refills 0, Tot. Refills 0, Maintenance, Use with inhalers as directed. Russian., 06/07/19 15:07:00 EDT, Compound, 162.56, cm, 05/03/19 16:30:00 EST, Height, 72.3, kg, 09/26/18 16:01:00 EDT, Dry Weight Start Date: 06/07/19 Status: Ordered SUMAtriptan 25 mg oral tablet 1 tablet = 25 mg, By Mouth, Daily, PRN as needed for migraine headache, may repeat dose after 2 hours up to a maximum of 2, # 6 tablet, 1 Refills, Maintenance, 04/18/19 13:31:00 EST, Tablet, [facility] #[id number], 162.56, cm, 03/08/19 14:34:00 E... Start Date: 04/18/19 Status: Ordered Zofran 4 mg oral tablet 1 tablet = 4 mg, By Mouth, 2 times a day, PRN Nausea & Vomiting, # 20 tablet, 0 Refills, Maintenance, 05/24/19 22:41:00 EDT, Tablet, [facility] #[id number], 162.56, cm, 05/03/19 16:30:00 EST, Height, 72.3, [...] 2016 Active Migraine(Confirmed) Active Opioid dependence(Confirmed) Active *[id number] renee Saavedra(Confirmed) Active Health care maintenance(Confirmed) [...] tolerance, and QD need over. 2genotype 02/02: [id number] is only mutation detected 3death of sister, caring for mother w/ dementia 4repeat screening colonoscopy in 2020 Social History Social History Type Response Smoking Status Former smoker, quit more than 30 days ago entered on: 05/24/18 Sex
--- OUTSIDE RECORDS SUMMARY | 2022-12-13 21:31 | XMS_ITS | Continuity of Care Document ---
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 Name Role Phone Kahlil Sun MD Primary Care Physician [facility]counter [facility] Date(s): 05/15/20 - 06/14/20 [facility] [address] [place] [address]- Allergies, Adverse Reactions, Alerts Substance Reaction Severity [...] 03/10/01 Given 1Result Comment: #2, [facility] 2Result Comment: [facility] 3Result Comment: [facility] 4Result Comment: pharmacy 5Location [facility] [...] tablet, 5 Refills, Maintenance, 01/26/20 16:20:00 EST, [facility], 162.56, cm, 10/09/19 10:36:00 EDT, Height, 72.3, kg, 09/26/18 16:01:00 EDT, Dry Weight Start Date: 01/26/20 Stop Date: 02/25/20 Status: Ordered albuterol 0.083% inhalation solution 3 mL = 2.5 mg, Inhalation, Every 6 hours, PRN Wheezing/Shortness of Breath, # 60 each, 0 Refills, Maintenance, 06/07/20 12:51:00 EDT, Solution, [facility] #[id number], 162.56, cm, 05/23/20 14:31:00 EDT, Height, 77, [...] tablet, 3 Refills, Maintenance, 03/02/20 19:50:00 EST, [facility] #[id number], 1 tablet By Mouth Daily, 162.56, cm, 01/04/20 9:40:00 EST, Height, 72.3, kg, 09/26/18 16:01:00 EDT, Dry Weight Start Date: 03/02/20 Status: Ordered Blood Pressure Meter Blood Pressure Meter, See Instructions, # 1 each, Refills 0, Tot. Refills 0, Maintenance, Use for, 07/11/18 16:11:47 EDT, Compound Start Date: 07/11/18 Status: Ordered buprenorphine-naloxone 2 mg-0.5 mg sublingual film 1 film, Sublingual, Daily, [place] [id number] covering for [place] [id number], # 14 film, 0 Refills, Maintenance, 04/26/20 9:47:00 EST, [facility] #75193, Partial fill on request., 1 film Sublingual Daily,Instr:[place] [id number] covering for... Start Date: 04/26/20 Status: Ordered buprenorphine-naloxone 2 mg-0.5 mg sublingual film 0.25 each, Sublingual, Daily, [place] [id number], # 8 film, 0 Refills, Maintenance, 12/15/19 19:00:00 EDT, [facility] #[id number], Partial fill on request., 0.25 each Sublingual Daily,Instr:Dino [id number], 162.56, cm, 10/09/19 10:36:00 EDT, Hei... Start Date: 12/15/19 Status: Ordered cetirizine 10 mg oral tablet 1 tablet = 10 mg, By Mouth, Daily, For allergies., # 30 tablet, 2 Refills, Maintenance, 06/29/19 16:02:00 EDT, Tablet, [facility] #90083, 162.56, cm, 05/03/19 16:30:00 EST, Height, 72.3, kg, 09/26/18 16:01:00 EDT, Dry Weight Start Date: 06/29/19 Status: Ordered cloNIDine 0.1 mg oral tablet 0.1 mg, 1, tablet, By Mouth, 3 times a day, as needed for anxiety, # 25 tablet, Refills 0, Tot. Refills 0, Maintenance, 10/10/19 21:36:00 EDT, Route to Pharmacy Electronically, [facility] #[id number], 162.56, cm, 10/09/19 10:36:00 EDT, Height, 72... [...] Gm, 5 Refills, Maintenance, 07/19/19 15:19:00 EDT, [place], [facility] #78564, 2 sprays Nares, Both Daily in AM,x30 days, 162.56, cm, 05/03/19 16:30:00 EST, Height, 72.3, kg, 09/26/18 16:01:00 EDT, Dry... Start Date: 07/19/19 Stop Date: 01/15/20 Status: Ordered Flovent HFA 44 mcg/inh inhalation aerosol 1 puffs, Inhalation, 2 times a day, # 1 each, 5 Refills, Maintenance, 06/07/20 12:52:00 EDT, Aerosol, [facility] #38659, 162.56, cm, 05/23/20 14:31:00 EDT, Height, 77, [...] # 1 each, Maintenance, [facility] Blood pressure monitor neededto monitor blood pressure [...] 3 Refills, Maintenance, 03/02/20 19:48:00 EST, Tablet, [facility] #61328, 30 day supply preferred for present, 162.56, [...] 05/12/18 14:45:33 EDT, Route to Pharmacy Electronically, [id number], [facility] Start Date: 05/12/18 Status: Ordered LORazepam 0.5 mg oral tablet 0.5 tablet = 0.25 mg, By Mouth, 2 times a day, PRN as needed for anxiety, # 20 tablet, 1 Refills, Maintenance, 05/16/19 23:11:00 EDT, Tablet, [facility] #47324, 162.56, cm, 05/03/19 16:30:00 EST, Height, 72.3, kg, 09/26/18 16:01:00 EDT, Dry... Start Date: 05/16/19 Status: Ordered losartan 100 mg oral tablet 1 tablet = 100 mg, By Mouth, Daily, # 30 tablet, 11 Refills, Maintenance, 06/29/19 15:59:00 EDT, Tablet, [facility] #15374, 162.56, cm, 05/03/19 16:30:00 EST, Height, 72.3, kg, 09/26/18 16:01:00 EDT, Dry Weight Start Date: 06/29/19 Status: Ordered meclizine 25 mg oral tablet 1 tablet = 25 mg, By Mouth, 2 times a day, # 30 tablet, 1 Refills, Maintenance, 03/30/19 15:49:00 EST, Tablet, [facility] #71672, 162.56, cm, 03/08/19 14:34:00 EST, Height, 72.3, [...] each, 0 Refills, Maintenance, 06/04/20 16:46:00 EDT, [facility] #08507, OK to sub for any gallon prep, [...] 12:51:00 EDT, Aerosol, Route to Pharmacy Electronically, [id number], [facility] #[id number], 1... Start Date: 06/07/20 Status: Ordered Senna 8.6 mg oral tablet 1-3 tablet, By Mouth, Daily, for constipation, # 90 tablet, Refills 5, Tot. Refills 5, Maintenance,03/26/20 15:25:00 EST, Route to Pharmacy Electronically, [facility] #[id number] Tablet, 162.56, cm, 03/21/20 15:01:00 EST, Height, 77, kg, 2... Start Date: 03/26/20 Status: Ordered Spacer for inhalers Spacer for inhalers, See Instructions, # 1 each, Refills 0, Tot. Refills 0, Maintenance, Use with inhalers as directed. [place]., 06/07/19 15:07:00 EDT, Compound, 162.56, cm, 05/03/19 16:30:00 EST, Height, 72.3, kg, 09/26/18 16:01:00 EDT, Dry Weight Start Date: 06/07/19 Status: Ordered SUMAtriptan 25 mg oral tablet 1 tablet = 25 mg, By Mouth, Daily, PRN as needed for migraine headache, may repeat dose after 2 hours up to a maximum of 2, # 6 tablet, 1 Refills, Maintenance, 03/02/20 19:47:00 EST, Tablet, [facility] #29031, 162.56, cm, 01/04/20 9:40:00 ES... Start Date: 03/02/20 Status: Ordered Zofran 4 mg oral tablet 1 tablet = 4 mg, By Mouth, 2 times a day, PRN Nausea & Vomiting, # 10 tablet, 0 Refills, Maintenance, 05/04/20 17:09:00 EST, Tablet, [facility] #95707, 162.56, cm, 05/03/20 9:23:00 EST,Height, 77, kg, [...] 2016 Active Migraine(Confirmed) Active Opioid dependence(Confirmed) Active *[id number] Care Partn er April Saavedra(Confirmed) Active Health [...] tolerance, and QD need over. 2genotype 02/02: [id number] is only mutation detected 3death of sister, caring for mother w/ dementia 4repeat screening colonoscopy in 2020 Social History Social History Type Response Smoking Status Former smoker, quit more than 30 days ago entered on: 05/24/18 Sex
--- OUTSIDE RECORDS SUMMARY | 2022-12-13 21:31 | XMS_ITS | Continuity of Care Document ---
Author Name Unknown Organization [facility] Address [address] [place] [address]- Care Team Providers Care Receipt And Report Clerk Name Role Phone Kahlil Sun MD Primary Care Physician [phone] [place] [facility] [place] 12/21/18 - 04/20/19 [facility] [address] [place] [address]- [facility] Attending Physician: Titus Watt MD Admitting Physician: Titus Watt MD Referring Physician: Kahlil Sun MD Allergies, [...] sublingual film 0.5 each, Sublingual, Daily, [place] [id number] Covering for Dino [id number], # 4 film, 0 Refills, Maintenance, 03/30/19 17:44:00 EST, [facility] #[id number], 0.5 each Sublingual Daily,x7 days,Instr:[place] [id number] Covering for Dino [id number]... Start Date: 03/30/19 Stop Date: 04/06/19 Status: Ordered Flonase 50 mcg/inh nasal spray 1 sprays, Nares, Both, 2 times a day, # 1 each, 0 Refills, Maintenance, 05/24/18 16:00:06 EDT, [place], 1 sprays Nares, Both 2 times a [...] 03/12/19 21:36:00 EST, Route to Pharmacy Electronically, [facility] #[id number], dose increase from 5mg,162.56, cm, 03/08/19 14:34:00 EST, Height, 72.3, kg... Start Date: 03/12/19 Status: Ordered loratadine 10 mg oral tablet 10 mg, 1, tablet, By Mouth, Daily, PRN, # 30 tablet, Refills 3, Tot. Refills 3, Maintenance, allergy/itch, 05/12/18 14:45:33 EDT, Route to Pharmacy Electronically, [id number], [facility] Start Date: 05/12/18 Status: Ordered [...] 1 Refills, Maintenance, 03/30/19 15:49:00 EST, Tablet, [facility] #61830, 162.56, cm, 03/08/19 14:34:00 EST, Height, 72.3, [...] 12/05/15 14:17:14, Aerosol, Route to Pharmacy Electronically, [id number], [id number] Start Date: 12/05/15 Status: Ordered Senna 8.6 mg oral tablet 1-3 tablet, By Mouth, Daily, for constipation, # 90 tablet, Refills 5, Tot. Refills 5, Maintenance,02/17/18 15:12:45 EST, Route to Pharmacy Electronically, [id number], [facility] Start Date: 02/17/18 Status: Ordered SUMAtriptan 25 mg oral tablet 1 tablet = 25 mg, By Mouth, Daily, PRN as needed for migraine headache, may repeat dose after 2 hours up to a maximum of 2, # 6 tablet, 1 Refills, Maintenance, 04/18/19 13:31:00 EST, Tablet, [facility] #72079, 162.56, cm, 03/08/19 14:34:00 E... Start Date: [...] 2016 Active Migraine(Confirmed) Active Opioid dependence(Confirmed) Active *[id number]-[facility] Partn er April Saavedra(Confirmed) Active Health care [...] tolerance, and QD need over. 2genotype 02/02: [id number] is only mutation detected 3death of sister, caring for mother w/ dementia 4repeat screening colonoscopy in 2020 Social History Social History Type Response Smoking Status Former smoker, quit more than 30 days ago entered on: 05/24/18 Sex
--- OUTSIDE RECORDS SUMMARY | 2022-12-13 21:31 | XMS_ITS | Continuity of Care Document ---
Author Name Unknown Organization [facility] Address [address] [place] [address]- Care Team Providers Care Bladder Changer Name Role Phone Dino PEREZ, Kahlil Barrera Primary Care Physician [phone] Encounter [facility] Date(s): 04/19/22 - 05/19/22 [facility] [address]- [place] Allergies, Adverse Reactions, Alerts Substance Reaction [...] #2, [facility] 3Result Comment: [facility] 4Result Comment: pharmacy 5Location History: [facility] 6Admin Note: vis 08/31/11 7Admin Note: ADMIN.BY RN 8Result Comment: [facility] 9Admin Note: Admin. by RN 10Admin Note: Admin. by RN 11Admin Note: Admin. 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 Start Date: 12/05/21 Status: Ordered acyclovir 400 mg oral tablet 1 tablet = 400 mg, By Mouth, 2 times a day, # 10 tablet, 5 Refills, Maintenance, 01/08/21 18:41:00 EST, [facility] #[id number], 162, cm, 12/17/20 23:19:00 EDT, Height, 86.3, kg, 09/29/20 15:30:00 EDT, Dry Weight Start Date: 01/08/21 Stop Date: 02/07/21 Status: Ordered Albuterol (Eqv-ProAir HFA) 90 mcg/inh inhalation aerosol 2 puffs, Inhalation, Every 4 hours, PRN NEEDED FOR WHEEZING/SHORTNESS OF BREATH, USE WITH SPACERCHAMBER, # 8.5 Gm, 5 Refills, [facility] #[id number], 16, INHALE 2 PUFFS INTO LUNGS EVERY 4 HOURS NEEDED FOR WHEEZING/SHORTNESS OF BREATH. USE... Start Date: 11/13/20 Status: Ordered albuterol 0.083% inhalation solution 3 mL = 2.5 mg, Inhalation, Every 6 hours, PRN Wheezing/Shortness of Breath, # 60 each, 0 Refills, Maintenance, 06/07/20 12:51:00 EDT, Solution, [facility] #44490, 162.56, cm, 05/23/20 14:31:00 EDT, Height, 77, [...] 01/04/22 19:11:00 EST, Route to Pharmacy Electronically, [facility] #[id number], 162.56, cm, 11/0... Start Date: 01/04/22 Status: Ordered Biktarvy oral tablet 1 tablet, By Mouth, Daily, # 30 tablet, 12 Refills, Maintenance, 04/17/22 7:54:00 EST, [facility] #87846, 1 tablet By Mouth Daily, 162.56, cm, [...] 1 Refills, Maintenance, 07/10/21 18:35:00 EDT, Tablet, [facility] #55788, Partial fill upon patient request if the prescription is for a schedule II opioid drug., 162, cm, 06/19/21 15:40:00 EDT... Start Date: 07/10/21 Status: Ordered cloNIDine 0.1 mg oral tablet 1, tablet, By Mouth, 3 times a day, PRN, # 270 tablet, Refills 0, Tot. Refills 0, Maintenance, NEEDED FOR ANXIETY, 05/13/22 16:45:00 EDT, Route to Pharmacy Electronically, [facility] #46175, 162.56, cm, 05/07/22 12:32:00 EST, Height, 87.6... Start Date: 05/13/22 Status: Ordered Colace Clear 50 mg oral capsule 1 capsule = 50 mg, By Mouth, 2 times a day, PRN as needed for constipation, # 60 capsule, 0 Refills, Maintenance, 12/05/21 15:09:00 EDT, [facility] #[id number], Partial fill upon patient requestif the prescription is for a schedule II opioid nhi... Start Date: 12/05/21 Status: Ordered diclofenac 1% topical gel = 2 Gm, Topically, 4 times a day, PRN for pain, not to exceed: 10 gm/day, # 100 Gm, 1 Refills, Maintenance, 05/29/21 16:52:00 EDT, Gel, [facility], Partial fill upon patient request if the prescription is for a schedule II opioid... Start Date: 05/29/21 Status: Ordered Dulera 200 mcg-5 mcg/inh inhalation aerosol 2 puffs, Inhalation, 2 times a day, # 1 each, 3 Refills, Maintenance, 01/28/21 16:44:00 EST, Aerosol, [facility], STOP FLOVENT, 2 puffs Inhalation 2 times a day,x30 days, 162, cm,01/28/21 16:02:00 EST, Height, 86.3, kg, 09/29/20 1... Start Date: 01/28/21 Stop Date: 05/28/21 Status: Ordered escitalopram 10 mg oral tablet 1 tablet = 10 mg, By Mouth, Daily, # 30 tablet, 11 Refills, Maintenance, 04/16/22 16:59:00 EST, Tablet, [facility] #[id number], Partial fill upon patient request if the [...] Gm, 5 Refills, Maintenance, 07/19/19 15:19:00 EDT, [place], [facility] #[id number], 2 sprays Nares, Both Daily in AM,x30 [...] Replace Required Details, Route to Pharmacy Electronically, [facility] #[id number], 162.56, cm,... Start Date: 11/27/21 Status: Ordered [...] Replace Required Details, Route to Pharmacy Electronically, [facility] . Start Date: 04/16/22 Status: Ordered Glucose [...] Mouth, Daily, # 30 tablet, 5 Refills, [facility] #05320, 162, cm, 10/09/21 16:19:00 EDT, Height, 86.3, kg, 09/29/20 15:30:00 EDT, Dry Weight Start Date: 10/20/21 Status: Ordered meclizine 25 mg oral tablet 1 tablet = 25 mg, By Mouth, 2 times a day, # 30 tablet, 1 Refills, Maintenance, 07/10/21 17:25:00 EDT, Tablet, [facility] #77070, 162, cm, 06/19/21 15:40:00 EDT, Height, 86.3, kg, 09/29/20 15:30:00 EDT, Dry Weight Start Date: 07/10/21 Status: Ordered multivitamin with iron Multiple Vitamins with Iron oral tablet 1 tablet, By Mouth, Daily, # 30 tablet, 11 Refills, Maintenance, 04/17/22 7:51:00 EST, Tablet, [facility] #32967, 1 tablet By Mouth Daily, 162.56, cm, 04/16/22 16:00:00 EST, Height, 87.6, kg, 10/24/21 8:00:00 EDT, Dry Weight Start Date: 04/17/22 Status: Ordered Narcan 4 mg/0.1 mL nasal spray = 4 mg, Inhalation, Once, # 2 each, 1 Refills, Soft Stop, 10/29/20 12:23:00 EDT, [facility] #92562, Partial fill upon patient request if the prescription is for a schedule II opioid drug., 162, cm, 09/29/20 15:30:00 EDT, Height, 86.3, kg, 08... Start Date: 10/29/20 Status: Ordered ondansetron 4 mg oral tablet 1 tablet = 4 mg, By Mouth, Daily, PRN Nausea & Vomiting, # 10 tablet, 3 Refills, Maintenance, 04/16/22 17:07:00 EST, [facility] #51835, 162.56, cm, 04/16/22 16:00:00 EST, Height, 87.6, [...] each, 0 Refills, Maintenance, 06/04/20 16:46:00 EDT, [facility] #[id number], OK to sub for any gallon prep, used as directed, 162.56, cm, 05/23/20 14:31:00 EDT, Height, 77, kg, 03/21/20 15:04:00 EST, Dry We... Start Date: 06/04/20 Status: Ordered Senna 8.6 mg oral tablet 1-3 tablet, By Mouth, Daily, for constipation, # 90 tablet, Refills 5, Tot. Refills 5, Maintenance,03/26/20 15:25:00 EST, Route to Pharmacy Electronically, [facility] #[id number] Tablet, 162.56, cm, 03/21/20 15:01:00 EST, Height, [...] tablet, 5 Refills, Maintenance, 04/17/22 7:53:00 EST, [facility] #06172, 162.56, cm, 04/16/22 16:00:00 EST, Height, 87.6, kg, 10/24/21 8:00:00 EDT, Dry Weight Start Date: 04/17/22 Status: Ordered Suboxone 8 mg-2 mg Sublingual Film 2 film, Sublingual, Daily, dissolve under the tongue may fill less due 05/12/2022, # 14 film, 0 Refills, Maintenance, 05/12/22 2:02:00 EDT, Film, [facility], 2 film Sublingual Daily,x7 days,Instr:dissolve under the tongue; may fi... Start Date: 05/12/22 Stop Date: 05/19/22 Status: Ordered Suboxone 8 mg-2 mg Sublingual Film 2.5 film, Sublingual, Daily, dissolve under the tongue increase in dose Iveth [id number] coveringfor Dino due on/after 08/22/2021, # 35 film, 0 Refills, Maintenance, 08/22/21 9:27:00 EDT, Film,[facility], 2.5 film Subli... Start Date: 08/22/21 Stop Date: 09/05/21 Status: Ordered SUMAtriptan 25 mg oral tablet 1 tablet = 25 mg, By Mouth, Daily, PRN as needed for migraine headache, may repeat dose after 2 hours up to a maximum of 2, # 6 tablet, 1 Refills, Maintenance, 03/02/20 19:47:00 EST, Tablet, [facility] #[id number], 162.56, cm, 01/04/20 9:40:00 ES... 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 2genotype 02/02: [id number] is only mutation detected 3death of sister, caring for mother w/ dementia 4repeat screening colonoscopy in 2020 Social History Social History Type Response Smoking Status Former smoker, quit more than 30 days ago entered on: 12/05/21 Sex Patient Care team information Care Team Personnel Name: Kahlil Sun MD Position: [facility] Primary Care Physician Member Role: PCP Address: Address: [address] [place] [address] Name: Sharri Prince Position: [facility] PCO Associate Professional Member Role: Lifetime Consulting Provider Care Team Related Persons Name: SHANITA MENDOZA Address: [address] [place] [address] Name: SHANITA MENDOZA [facility] Address: home [address] Name: ULICES PEARSON Name: ULICES ESPARZA Address: [place] [address] Name: LALA LI
--- OUTSIDE RECORDS SUMMARY | 2022-12-13 21:32 | XMS_ITS | Continuity of Care Document ---
Author Name Unknown Organization [facility] Address [address] [place] [address]- Care Team Providers Care Set Rider Name Role Phone Kahlil Sun MD Primary Care Physician [phone] Encounter [facility] [place] Date(s): 03/24/21 - 04/23/21 [facility] [address], [place] [address] Attending Physician: Ankit Keller Admitting Physician: AdmAnkit hughes Referring Physician: Admtr, Ar8 Allergies, Adverse Reactions, [...] or observed. 2Result Comment: #2, [facility] 3Result Comment: [facility] 4Result Comment: pharmacy 5Location History: [place] 6Admin Note: vis 08/31/11 7Admin Note: ADMIN.BY RN 8Result Comment: [facility] 9Admin Note: Admin. by RN 10Admin [...] 1 Refills, Maintenance, 09/12/20 16:18:00EDT, CR Tablet, [facility] #63565, Partial fill upon patient request if the prescription is for a schedule II opioid drug., 162, cm, 09/12/20... Start Date: 09/12/20 Status: Ordered acyclovir 400 mg oral tablet 1 tablet = 400 mg, By Mouth, 2 times a day, # 10 tablet, 5 Refills, Maintenance, 01/08/21 18:41:00 EST, [facility] #57747, 162, cm, 12/17/20 23:19:00 EDT, Height, 86.3, kg, 09/29/20 15:30:00 EDT, Dry Weight Start Date: 01/08/21 Stop Date: 02/07/21 Status: Ordered Albuterol (Eqv-ProAir HFA) 90 mcg/inh inhalation aerosol 2 puffs, Inhalation, Every 4 hours, PRN NEEDED FOR WHEEZING/SHORTNESS OF BREATH, USE WITH SPACERCHAMBER, # 8.5 Gm, 5 Refills, [facility] #41485, 16, INHALE 2 PUFFS INTO LUNGS EVERY 4 HOURS NEEDED FOR WHEEZING/SHORTNESS OF BREATH. USE... Start Date: 11/13/20 Status: Ordered albuterol 0.083% inhalation solution 3 mL = 2.5 mg, Inhalation, Every 6 hours, PRN Wheezing/Shortness of Breath, # 60 each, 0 Refills, Maintenance, 06/07/20 12:51:00 EDT, Solution, [facility] #59701, 162.56, cm, 05/23/20 14:31:00 EDT, Height, 77, [...] tablet, 3 Refills, Maintenance, 03/02/20 19:50:00 EST, [facility] #50270, 1 tablet By Mouth Daily, 162.56, cm, [...] 2 Refills, Maintenance, 06/29/19 16:02:00 EDT, Tablet, [facility] #97362, 162.56, cm, 05/03/19 16:30:00 EST, Height, 72.3, kg, 09/26/18 16:01:00 EDT, Dry Weight Start Date: 06/29/19 Status: Ordered cloNIDine 0.1 mg oral tablet 0.1 mg, 1, tablet, By Mouth, 3 times a day, as needed for anxiety, # 25 tablet, Refills 0, Tot. Refills 0, Maintenance, 10/10/19 21:36:00 EDT, Route to Pharmacy Electronically, [facility] #00422, 162.56, cm, 10/09/19 10:36:00 EDT, Height, 72... Start Date: 10/10/19 Status: Ordered Dulera 200 mcg-5 mcg/inh inhalation aerosol 2 puffs, Inhalation, 2 times a day, # 1 each, 3 Refills, Maintenance, 01/28/21 16:44:00 EST, Aerosol, [facility], STOP FLOVENT, 2 puffs Inhalation [...] Gm, 5 Refills, Maintenance, 07/19/19 15:19:00 EDT, [place], [facility] #32397, 2 sprays Nares, Both Daily in AM,x30 days, 162.56, cm, 05/03/19 16:30:00 EST, Height, 72.3, kg, 09/26/18 16:01:00 EDT, Dry... Start Date: 07/19/19 Stop Date: 01/15/20 Status: Ordered fluconazole 150 mg oral tablet 1 tablet = 150 mg, By Mouth, Once, # 1 tablet, 1 Refills, Soft Stop, 01/08/21 19:37:00 EST, Tablet,[facility] #81376, 162, cm, 12/17/20 23:19:00 EDT, Height, 86.3, [...] 01/28/21 16:28:00 EST, Route to Pharmacy Electronically, [facility], STOP HCTZ, 162, cm, 01/28/21 16:02:00 [...] # 1 each, Maintenance, covering for [facility] Blood pressure monitor neededto monitor [...] 05/12/18 14:45:33 EDT, Route to Pharmacy Electronically, [id number], [facility] Start Date: 05/12/18 Status: Ordered LORazepam 0.5 mg oral tablet 0.5 tablet = 0.25 mg, By Mouth, 2 times a day, PRN as needed for anxiety, # 20 tablet, 1 Refills, Maintenance, 05/16/19 23:11:00 EDT, Tablet, [facility] #60766, 162.56, cm, 05/03/19 16:30:00 EST, Height, 72.3, kg, 09/26/18 16:01:00 EDT, Dry... Start Date: 05/16/19 Status: Ordered losartan 100 mg oral tablet 1 tablet, By Mouth, Daily, # 30 tablet, 5 Refills, Maintenance, 09/24/20 16:00:00 EDT, [facility] #61118, 162, cm, 09/19/20 15:59:00 EDT, Height, 82.1, kg, 06/08/20 17:25:00 EDT, Dry Weight Start Date: 09/24/20 Status: Ordered meclizine 25 mg oral tablet 1 tablet = 25 mg, By Mouth, 2 times a day, # 30 tablet, 1 Refills, Maintenance, 03/30/19 15:49:00 EST, Tablet, [facility] #71315, 162.56, cm, 03/08/19 14:34:00 EST, Height, 72.3, kg, 09/26/18 16:01:00 EDT, Dry Weight Start Date: 03/30/19 Status: Ordered Narcan 4 mg/0.1 mL nasal spray = 4 mg, Inhalation, Once, # 2 each, 1 Refills, Soft Stop, 10/29/20 12:23:00 EDT, [facility] #16479, Partial fill upon patient request if the [...] each, 0 Refills, Maintenance, 06/04/20 16:46:00 EDT, [facility] #12588, OK to sub for any gallon prep, used as directed, 162.56, cm, 05/23/20 14:31:00 EDT, Height, 77, kg, 03/21/20 15:04:00 EST, Dry We... Start Date: 06/04/20 Status: Ordered predniSONE 50 mg oral tablet 1 tablet = 50 mg, By Mouth, Daily, # 7 tablet, 0 Refills, Maintenance, 01/28/21 16:37:00 EST, Tablet, [facility], Partial fill upon patient request if the prescription is for a schedule II opioid drug., 162, cm, 01/28/21 16:02:00 E... Start Date: 01/28/21 Stop Date: 02/04/21 Status: Ordered Senna 8.6 mg oral tablet 1-3 tablet, By Mouth, Daily, for constipation, # 90 tablet, Refills 5, Tot. Refills 5, Maintenance,03/26/20 15:25:00 EST, [id number]t, 162.56, cm, 03/21/20 15:01:00 EST, Height, [...] 4 Refills, Maintenance, 01/28/21 16:29:00 EST, Tablet, [facility], STOP HCTZ, 162, cm, 01/28/21 16:02:00 [...] dissolve under the tongue increase in dose [id number] due on/after 04/03/2021, # 35 film, 0 Refills, Maintenance, 03/31/21 17:46:00 EST, Film, [facility], 2.5 film Sublingual Daily,Instr:dissolve und... Start Date: 03/31/21 Status: Ordered SUMAtriptan 25 mg oral tablet 1 tablet = 25 mg, By Mouth, Daily, PRN as needed for migraine headache, may repeat dose after 2 hours up to a maximum of 2, # 6 tablet, 1 Refills, Maintenance, 03/02/20 19:47:00 EST, Tablet, [facility] #69468, 162.56, cm, 01/04/20 9:40:00 ES... Start Date: 03/02/20 Status: Ordered Zofran 4 mg oral tablet 1 tablet = 4 mg, By Mouth, 2 times a day, PRN Nausea & Vomiting, # 10 tablet, 0 Refills, Maintenance, 03/16/21 18:27:00 EST, Tablet, [facility] #92690, 162, cm, 02/11/21 15:27:00 EST, Height, 86.3, [...] Obese class II(Confirmed) Active Opioid dependence(Confirmed) Active *[id number] Care Partn renee Saavedra(Confirmed) Active Health care [...] tolerance, and QD need over. 2genotype 02/02: [id number] is only mutation detected 3death of sister, caring for mother w/ dementia 4repeat screening colonoscopy in 2020 Social History Social History Type Response Smoking Status Former smoker, quit more than 30 days ago entered on: 10/29/20 Sex
--- OUTSIDE RECORDS SUMMARY | 2022-12-13 21:32 | XMS_ITS | Continuity of Care Document ---
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 Name Role Phone Kahlil Sun MD Primary Care Physician Encounter [facility] [place] Date(s): 09/29/20 - 10/06/20 [facility] [address] [place], [place] [address] Attending Physician: Amita Ballard MD Referring Physician: [...] toxoids (Td) 03/10/01 Given 1Result Comment: #2, [facility] 2Result Comment: [facility] 3Result Comment: [facility] 4Result Comment: pharmacy [facility] 6Admin Note: vis 08/31/11 7Admin Note: ADMIN.BY RN 8Admin Note: Admin. by RN 9Admin Note: Admin. by RN 10Admin Note: Admin. by RN 11Admin Note: vis 06/15/15 12Admin Note: dose #6 (3rd in 2nd series) 13Admin Note: dose #5 14Admin Note: #3 15Admin Note: SARAHNI san[employer]i-pasteur 16Admin Note: ADMIN BEN, CRUTCHING [employer]OR 17Admin Note: BY LEXI Agudelo 18Admin Note: [...] 1 Refills, Maintenance, 09/12/20 16:18:00EDT, CR Tablet, [facility] #54070, Partial fill upon patient request if the prescription is for a schedule II opioid drug., 162, cm, 09/12/20... Start Date: 09/12/20 Status: Ordered acyclovir 400 mg oral tablet 1 tablet = 400 mg, By Mouth, 2 times a day, # 10 tablet, 5 Refills, Maintenance, 01/26/20 16:20:00 EST, [facility], 162.56, cm, 10/09/19 10:36:00 EDT, Height, 72.3, kg, 09/26/18 16:01:00 EDT, Dry Weight Start Date: 01/26/20 Stop Date: 02/25/20 Status: Ordered albuterol 0.083% inhalation solution 3 mL = 2.5 mg, Inhalation, Every 6 hours, PRN Wheezing/Shortness of Breath, # 60 each, 0 Refills, Maintenance, 06/07/20 12:51:00 EDT, Solution, [facility] #[id number], 162.56, cm, 05/23/20 14:31:00 EDT, Height, 77, [...] tablet, 3 Refills, Maintenance, 03/02/20 19:50:00 EST, [facility] #10776, 1 tablet By Mouth Daily, 162.56, cm, 01/04/20 9:40:00 EST, Height, 72.3, kg, 09/26/18 16:01:00 EDT, Dry Weight Start Date: 03/02/20 Status: Ordered Blood Pressure Meter Blood Pressure Meter, See Instructions, # 1 each, Refills 0, Tot. Refills 0, Maintenance, Use for, 07/11/18 16:11:47 EDT, Compound Start Date: 07/11/18 Status: Ordered buprenorphine-naloxone 2 mg-0.5 mg sublingual film 0.25 each, Sublingual, Daily, [facility] [id number], # 8 film, 0 Refills, Maintenance, 12/15/19 19:00:00 EDT, [facility] #11085, Partial fill on request., 0.25 each Sublingual Daily,Instr:[facility]ino [id number], 162.56, cm, 10/09/19 10:36:00 EDT, Hei... Start Date: 12/15/19 Status: Ordered buprenorphine-naloxone 8 mg-2 mg sublingual film 1 film, Sublingual, Daily, dissolve under the tongue, # 7 film, 0 Refills, Maintenance, 09/12/20 15:38:00 EDT, Film, [facility] #18024, Partial fill upon patient request if the prescriptionis for a schedule II opioid drug., 1 film Sublingua... Start Date: 09/12/20 Stop Date: 09/19/20 Status: Ordered cetirizine 10 mg oral tablet 1 tablet = 10 mg, By Mouth, Daily, For allergies., # 30 tablet, 2 Refills, Maintenance, 06/29/19 16:02:00 EDT, Tablet, [facility] #95497, 162.56, cm, 05/03/19 16:30:00 EST, Height, 72.3, kg, 09/26/18 16:01:00 EDT, Dry Weight Start Date: 06/29/19 Status: Ordered cloNIDine 0.1 mg oral tablet 0.1 mg, 1, tablet, By Mouth, 3 times a day, as needed for anxiety, # 25 tablet, Refills 0, Tot. Refills 0, Maintenance, 10/10/19 21:36:00 EDT, Route to Pharmacy Electronically, [facility] #94323, 162.56, cm, 10/09/19 10:36:00 EDT, Height, 72... [...] Gm, 5 Refills, Maintenance, 07/19/19 15:19:00 EDT, [place], [facility] #08025, 2 sprays Nares, Both Daily in AM,x30 days, 162.56, cm, 05/03/19 16:30:00 EST, Height, 72.3, kg, 09/26/18 16:01:00 EDT, Dry... Start Date: 07/19/19 Stop Date: 01/15/20 Status: Ordered Flovent HFA 44 mcg/inh inhalation aerosol 1 puffs, Inhalation, 2 times a day, # 1 each, 5 Refills, Maintenance, 06/07/20 12:52:00 EDT, Aerosol, [facility] #49520, 162.56, cm, 05/23/20 14:31:00 EDT, Height, 77, [...] 3 Refills, Maintenance, 03/02/20 19:48:00 EST, Tablet, [facility] #50117, 30 day supply preferred for present, 162.56, [...] 05/12/18 14:45:33 EDT, Route to Pharmacy Electronically, [id number], [facility] Start Date: 05/12/18 Status: Ordered LORazepam 0.5 mg oral tablet 0.5 tablet = 0.25 mg, By Mouth, 2 times a day, PRN as needed for anxiety, # 20 tablet, 1 Refills, Maintenance, 05/16/19 23:11:00 EDT, Tablet, [facility] #21894, 162.56, cm, 05/03/19 16:30:00 EST, Height, 72.3, kg, 09/26/18 16:01:00 EDT, Dry... Start Date: 05/16/19 Status: Ordered losartan 100 mg oral tablet 1 tablet, By Mouth, Daily, # 30 tablet, 5 Refills, Maintenance, 09/24/20 16:00:00 EDT, [facility] #90640, 162, cm, 09/19/20 15:59:00 EDT, Height, 82.1, kg, 06/08/20 17:25:00 EDT, Dry Weight Start Date: 09/24/20 Status: Ordered meclizine 25 mg oral tablet 1 tablet = 25 mg, By Mouth, 2 times a day, # 30 tablet, 1 Refills, Maintenance, 03/30/19 15:49:00 EST, Tablet, [facility] #09423, 162.56, cm, 03/08/19 14:34:00 EST, Height, 72.3, kg, 09/26/18 16:01:00 EDT, Dry Weight Start Date: 03/30/19 Status: Ordered Mucinex DM oral tablet, extended release 1 tablet, By Mouth, Every 12 hours, for 10 days, # 20 tablet, 0 Refills, Acute 10/08/20 13:40:00 EDT, 09/28/20 13:40:00 EDT, ER Tablet, [facility] #38805, Partial fill upon patient request if the prescription is for a schedule II opioid drug... Start Date: 09/28/20 Stop Date: 10/08/20 Status: Ordered pantoprazole 20 mg oral delayed [...] each, 0 Refills, Maintenance, 06/04/20 16:46:00 EDT, [facility] #03036, OK to sub for any gallon prep, [...] 12:51:00 EDT, Aerosol, Route to Pharmacy Electronically, [id number], [facility] #[id number], 1... Start Date: 06/07/20 Status: Ordered Senna 8.6 mg oral tablet 1-3 tablet, By Mouth, Daily, for constipation, # 90 tablet, Refills 5, Tot. Refills 5, Maintenance,03/26/20 15:25:00 EST, Route to Pharmacy Electronically, [facility] #[id number] Tablet, 162.56, cm, 03/21/20 15:01:00 EST, Height, 77, kg, ... Start Date: 03/26/20 Status: Ordered Spacer for inhalers Spacer for inhalers, See Instructions, # 1 each, Refills 0, Tot. Refills 0, Maintenance, Use with inhalers as directed. Faroese., 06/07/19 15:07:00 EDT, Compound, 162.56, cm, 05/03/19 16:30:00 EST, Height, 72.3, kg, 09/26/18 16:01:00 EDT, Dry Weight Start Date: 06/07/19 Status: Ordered Sublocade 100 mg/0.5 mL subcutaneous solution, extended release = 100 mg, Subcutaneous Infusion, Every 28 days, [facility], # 1 each, 0 Refills, Maintenance, [...] 1 Refills, Maintenance, 03/02/20 19:47:00 EST, Tablet, [facility] #49476, 162.56, cm, 01/04/20 9:40:00 ES... Start Date: 03/02/20 Status: Ordered Zofran 4 mg oral tablet 1 tablet = 4 mg, By Mouth, 2 times a day, PRN Nausea & Vomiting, # 10 tablet, 0 Refills, Maintenance, 09/19/20 18:37:00 EDT, Tablet, [facility] #74259, 162, cm, 09/19/20 15:59:00 EDT, Height, 82.1, [...] 2016 Active Migraine(Confirmed) Active Opioid dependence(Confirmed) Active *[id number] Care Partn renee Saavedra(Confirmed) Active Health care [...] tolerance, and QD need over. 2genotype 02/02: [id number] is only mutation detected 3death of sister, caring for mother w/ dementia 4repeat screening colonoscopy in 2020 Vital Signs Most recent to oldest [Reference Range]: 1 Height 162 cm (09/29/20 3:30 PM) Weight 86.3 kg (09/29/20 3:30 PM) Oxygen Saturation [94-100 %] 100 % (09/29/20 3:30 PM) Pulse Rate [55-90 bpm] 83 bpm (09/29/20 3:30 PM) Body Mass Index [18.5-24.99] 32.88 *>HHI* (09/29/20 3:30 PM) Blood Pressure [90-138/55-84 mm Hg] 118/ 71mm Hg (09/29/20 3:30 PM) Temperature [96.8-100.4 DegF] 98.5 DegF (09/29/20 3:30 PM) Mode of Delivery (Oxygen) Room air (09/29/20 3:30 PM) Blood pressure sites Arm, right (09/29/20 3:30 PM) Temperature Route Temporal (09/29/20 3:30 PM) Dry Weight 86.3 kg (09/29/20 3:30 PM) Weight Obtained Via Standing scale (09/29/20 3:30 PM) Dry Weight Obtained Via Standing scale (09/29/20 3:30 PM) Social History Social History Type Response Smoking Status Former smoker, quit more than 30 days ago entered on: 05/24/18 Sex
--- OUTSIDE RECORDS SUMMARY | 2022-12-13 21:32 | XMS_ITS | Continuity of Care Document ---
Author Name Unknown Organization [facility] Address Unknown Care Team Providers Care Drug Room Clerk Name Role Phone Kahlil Sun MD Primary Care Physician [phone] Encounter [facility] Date(s): 01/08/21 - 02/07/21 [facility] Allergies, Adverse Reactions, Alerts Substance Reaction Severity Status amitriptyline 1 Mental status Active nevirapine Active Levaquin 2 Active Ziagen Active aspirin 3 facial edema and sob Severe Active 1dreaming, near halliucinations 2itchy, nervous 3facial [...] toxoids (Td) 03/10/01 Given 1Result Comment: #2, [facility] 2Result Comment: [facility] 3Result Comment: [facility] 4Result Comment: pharmacy 5Location History: [place] 6Admin Note: vis 08/31/11 7Admin Note: ADMIN.BY RN 8Admin Note: Admin. by RN 9Admin Note: Admin. by RN 10Admin Note: Admin. by RN 11Admin Note: vis 06/15/15 12Admin Note: dose #6 (3rd in 2nd series) 13Admin Note: dose #5 14Admin Note: #3 15Admin Note: LITO sanofi-pasteur 16Admin Note: ADMIN BEN, CAR MOVER 17Admin Note: BY LEXI Agudelo 18Admin Note: [...] 1 Refills, Maintenance, 09/12/20 16:18:00EDT, CR Tablet, [facility] #18595, Partial fill upon patient request if the prescription is for a schedule II opioid drug., 162, cm, 09/12/20... Start Date: 09/12/20 Status: Ordered acyclovir 400 mg oral tablet 1 tablet = 400 mg, By Mouth, 2 times a day, # 10 tablet, 5 Refills, Maintenance, 01/08/21 18:41:00 EST, [facility] #72084, 162, cm, 12/17/20 23:19:00 EDT, Height, 86.3, kg, 09/29/20 15:30:00 EDT, Dry Weight Start Date: 01/08/21 Stop Date: 02/07/21 Status: Ordered Albuterol (Eqv-ProAir HFA) 90 mcg/inh inhalation aerosol 2 puffs, Inhalation, Every 4 hours, PRN NEEDED FOR WHEEZING/SHORTNESS OF BREATH, USE WITH SPACERCHAMBER, # 8.5 Gm, 5 Refills, [facility] #[id number], 16, INHALE 2 PUFFS INTO LUNGS EVERY 4 HOURS NEEDED FOR WHEEZING/SHORTNESS OF BREATH. USE... Start Date: 11/13/20 Status: Ordered albuterol 0.083% inhalation solution 3 mL = 2.5 mg, Inhalation, Every 6 hours, PRN Wheezing/Shortness of Breath, # 60 each, 0 Refills, Maintenance, 06/07/20 12:51:00 EDT, Solution, [facility] #62989, 162.56, cm, 05/23/20 14:31:00 EDT, Height, 77, [...] tablet, 3 Refills, Maintenance, 03/02/20 19:50:00 EST, [facility] #47756, 1 tablet By Mouth Daily, 162.56, cm, [...] 2 Refills, Maintenance, 06/29/19 16:02:00 EDT, Tablet, [facility] #16315, 162.56, cm, 05/03/19 16:30:00 EST, Height, 72.3, kg, 09/26/18 16:01:00 EDT, Dry Weight Start Date: 06/29/19 Status: Ordered cloNIDine 0.1 mg oral tablet 0.1 mg, 1, tablet, By Mouth, 3 times a day, as needed for anxiety, # 25 tablet, Refills 0, Tot. Refills 0, Maintenance, 10/10/19 21:36:00 EDT, Route to Pharmacy Electronically, [facility] #[id number], 162.56, cm, 10/09/19 10:36:00 EDT, Height, 72... Start Date: 10/10/19 Status: Ordered Dulera 200 mcg-5 mcg/inh inhalation aerosol 2 puffs, Inhalation, 2 times a day, # 1 each, 3 Refills, Maintenance, 01/28/21 16:44:00 EST, Aerosol, [facility], STOP FLOVENT, 2 puffs Inhalation 2 [...] Gm, 5 Refills, Maintenance, 07/19/19 15:19:00 EDT, [place], [facility] #75152, 2 sprays Nares, Both Daily in AM,x30 days, 162.56, cm, 05/03/19 16:30:00 EST, Height, 72.3, kg, 09/26/18 16:01:00 EDT, Dry... Start Date: 07/19/19 Stop Date: 01/15/20 Status: Ordered fluconazole 150 mg oral tablet 1 tablet = 150 mg, By Mouth, Once, # 1 tablet, 1 Refills, Soft Stop, 01/08/21 19:37:00 EST, Tablet,[facility] #62263, 162, cm, 12/17/20 23:19:00 EDT, Height, 86.3, [...] 01/28/21 16:28:00 EST, Route to Pharmacy Electronically, [facility], STOP HCTZ, 162, cm, 01/28/21 16:02:00 [...] Instructions, # 1 each, Maintenance, covering for [facility] Blood pressure monitor neededto monitor blood [...] 3 Refills, Maintenance, 03/02/20 19:48:00 EST, Tablet, [facility] #99925, 30 day supply preferred for present, 162.56, [...] 05/12/18 14:45:33 EDT, Route to Pharmacy Electronically, [id number], [facility] Start Date: 05/12/18 Status: Ordered LORazepam 0.5 mg oral tablet 0.5 tablet = 0.25 mg, By Mouth, 2 times a day, PRN as needed for anxiety, # 20 tablet, 1 Refills, Maintenance, 05/16/19 23:11:00 EDT, Tablet, [facility] #45404, 162.56, cm, 05/03/19 16:30:00 EST, Height, 72.3, kg, 09/26/18 16:01:00 EDT, Dry... Start Date: 05/16/19 Status: Ordered losartan 100 mg oral tablet 1 tablet, By Mouth, Daily, # 30 tablet, 5 Refills, Maintenance, 09/24/20 16:00:00 EDT, [facility] #77941, 162, cm, 09/19/20 15:59:00 EDT, Height, 82.1, kg, 06/08/20 17:25:00 EDT, Dry Weight Start Date: 09/24/20 Status: Ordered meclizine 25 mg oral tablet 1 tablet = 25 mg, By Mouth, 2 times a day, # 30 tablet, 1 Refills, Maintenance, 03/30/19 15:49:00 EST, Tablet, [facility] #76647, 162.56, cm, 03/08/19 14:34:00 EST, Height, 72.3, kg, 09/26/18 16:01:00 EDT, Dry Weight Start Date: 03/30/19 Status: Ordered Narcan 4 mg/0.1 mL nasal spray = 4 mg, Inhalation, Once, # 2 each, 1 Refills, Soft Stop, 10/29/20 12:23:00 EDT, [facility] #64954, Partial fill upon patient request if the [...] each, 0 Refills, Maintenance, 06/04/20 16:46:00 EDT, [facility] #94970, OK to sub for any gallon prep, used as directed, 162.56, cm, 05/23/20 14:31:00 EDT, Height, 77, kg, 03/21/20 15:04:00 EST, Dry We... Start Date: 06/04/20 Status: Ordered predniSONE 50 mg oral tablet 1 tablet = 50 mg, By Mouth, Daily, # 7 tablet, 0 Refills, Maintenance, 01/28/21 16:37:00 EST, Tablet, [facility], Partial fill upon patient request if the prescription is for a schedule II opioid drug., 162, cm, 01/28/21 16:02:00 E... Start Date: 01/28/21 Stop Date: 02/04/21 Status: Ordered Senna 8.6 mg oral tablet 1-3 tablet, By Mouth, Daily, for constipation, # 90 tablet, Refills 5, Tot. Refills 5, Maintenance,03/26/20 15:25:00 EST, Route to Pharmacy Electronically, [facility] #[id number] Tablet, 162.56, cm, 03/21/20 15:01:00 EST, Height, [...] 4 Refills, Maintenance, 01/28/21 16:29:00 EST, Tablet, [facility], STOP HCTZ, 162, cm, 01/28/21 16:02:00 [...] under the tongue increase in dose 01/22/2021 [id number], # 60 film, 0 Refills, Maintenance, 01/22/21 13:49:00 EST, Film, [facility] #92915, Partial fill upon patient request if the prescription is for a... Start Date: 01/22/21 Status: Ordered SUMAtriptan 25 mg oral tablet 1 tablet = 25 mg, By Mouth, Daily, PRN as needed for migraine headache, may repeat dose after 2 hours up to a maximum of 2, # 6 tablet, 1 Refills, Maintenance, 03/02/20 19:47:00 EST, Tablet, [facility] #95043, 162.56, cm, 01/04/20 9:40:00 ES... Start Date: 03/02/20 Status: Ordered Zofran 4 mg oral tablet 1 tablet = 4 mg, By Mouth, 2 times a day, PRN Nausea & Vomiting, # 10 tablet, 0 Refills, Maintenance, 12/01/20 20:26:00 EDT, Tablet, [facility] #00135, 162, cm, 10/29/20 17:08:00 EDT, Height, 86.3, [...] Obese class II(Confirmed) Active Opioid dependence(Confirmed) Active *[phone] Care Partn renee Saavedra(Confirmed) Active Health care [...] tolerance, and QD need over. 2genotype 02/02: [id number] is only mutation detected 3death of sister, caring for mother w/ dementia 4repeat screening colonoscopy in 2020 Social History Social History Type Response Smoking Status Former smoker, quit more than 30 days ago entered on: 10/29/20 Sex
--- OUTSIDE RECORDS SUMMARY | 2022-12-13 21:32 | XMS_ITS | Continuity of Care Document ---
Author Name Unknown Organization [facility] Address [address] [place] [address]- Care Team Providers Care News Copy Editor Name Role Phone Dino PEREZ, Kahlil Barrera Primary Care Physician [place] [facility] [place] 10/05/20 [facility] [address] [place] [address]- Encounter Diagnosis External otitis of left ear(Discharge Diagnosis) - 09/28/20 Asthma exacerbation(Discharge Diagnosis) - 09/28/20 Attending Physician: Amita Ballard MD Referring Physician: [...] toxoids (Td) 03/10/01 Given 1Result Comment: #2, [facility] 2Result Comment: [facility] 3Result Comment: [facility] 4Result Comment: pharmacy 5Location History: [place] 6Admin Note: vis 08/31/11 7Admin Note: ADMIN.BY RN 8Admin Note: Admin. by RN 9Admin Note: Admin. by RN 10Admin Note: Admin. by RN 11Admin Note: vis 06/15/15 12Admin Note: dose #6 (3rd in 2nd series) 13Admin Note: dose #5 14Admin Note: #3 15Admin Note: SARAHNI sanofi-pasteur 16Admin Note: ADMIN BEN, ACTIVATED SLUDGE OPERATOR 17Admin Note: BY LEXI Agudelo 18Admin [...] 1 Refills, Maintenance, 09/12/20 16:18:00EDT, CR Tablet, [facility] #[id number], Partial fill upon patient request if the prescription is for a schedule II opioid drug., 162, cm, 09/12/20... Start Date: 09/12/20 Status: Ordered acyclovir 400 mg oral tablet 1 tablet = 400 mg, By Mouth, 2 times a day, # 10 tablet, 5 Refills, Maintenance, 01/26/20 16:20:00 EST, [facility], 162.56, cm, 10/09/19 10:36:00 EDT, Height, 72.3, kg, 09/26/18 16:01:00 EDT, Dry Weight Start Date: 01/26/20 Stop Date: 02/25/20 Status: Ordered albuterol 0.083% inhalation solution 3 mL = 2.5 mg, Inhalation, Every 6 hours, PRN Wheezing/Shortness of Breath, # 60 each, 0 Refills, Maintenance, 06/07/20 12:51:00 EDT, Solution, [facility] #[id number], 162.56, cm, 05/23/20 14:31:00 EDT, Height, 77, kg, 03/21/20 15:04:00 EST, Dry... Start Date: 06/07/20 Status: Ordered Alcohol Wipes See Instructions, # 100 each, Refills 2, Tot. Refills 2, Maintenance, for glucose testing as directed. Dx: E16.1 - hypoglycemia, R73.9 - Hyperglycemia, 06/12/20 17:54:00 EDT, Compound, 163, cm, 06/08/20 17:25:00 EDT, Height, 82.1, kg, 06/08/20 17:25:0... Start Date: 06/12/20 Status: Ordered amoxicillin 500 mg oral capsule 2 capsule = 1,000 mg, By Mouth, 2 times a day, for 7 days, # 28 capsule, 0 Refills, Acute 10/06/20 15:50:00 EDT, 09/29/20 15:50:00 EDT, Capsule, [facility] #[id number], Partial fill upon patientrequest if the prescription is for a schedule II op... Start Date: 09/29/20 Stop Date: 10/06/20 Status: Ordered Biktarvy oral tablet 1 tablet, By Mouth, Daily, # 90 tablet, 3 Refills, Maintenance, 03/02/20 19:50:00 EST, [facility] #[id number], 1 tablet By Mouth Daily, 162.56, cm, 01/04/20 9:40:00 EST, Height, 72.3, kg, 09/26/18 16:01:00 EDT, Dry Weight Start Date: 03/02/20 Status: Ordered Blood Pressure Meter Blood Pressure Meter, See Instructions, # 1 each, Refills 0, Tot. Refills 0, Maintenance, Use for, 07/11/18 16:11:47 EDT, Compound Start Date: 07/11/18 Status: Ordered buprenorphine-naloxone 2 mg-0.5 mg sublingual film 0.25 each, Sublingual, Daily, Dino [id number], # 8 film, 0 Refills, Maintenance, 12/15/19 19:00:00 EDT, [facility] #[id number], Partial fill on request., 0.25 each Sublingual Daily,Instr:Dino [id number], 162.56, cm, 10/09/19 10:36:00 EDT, Hei... Start Date: 12/15/19 Status: Ordered buprenorphine-naloxone 8 mg-2 mg sublingual film 1 film, Sublingual, Daily, dissolve under the tongue, # 7 film, 0 Refills, Maintenance, 09/12/20 15:38:00 EDT, Film, [facility] #[id number], Partial fill upon patient request if the prescriptionis for a schedule II opioid drug., 1 film Sublingua... Start Date: 09/12/20 Stop Date: 09/19/20 Status: Ordered cetirizine 10 mg oral tablet 1 tablet = 10 mg, By Mouth, Daily, For allergies., # 30 tablet, 2 Refills, Maintenance, 06/29/19 16:02:00 EDT, Tablet, [facility] #[id number], 162.56, cm, 05/03/19 16:30:00 EST, Height, 72.3, kg, 09/26/18 16:01:00 EDT, Dry Weight Start Date: 06/29/19 Status: Ordered cloNIDine 0.1 mg oral tablet 0.1 mg, 1, tablet, By Mouth, 3 times a day, as needed for anxiety, # 25 tablet, Refills 0, Tot. Refills 0, Maintenance, 10/10/19 21:36:00 EDT, Route to Pharmacy Electronically, [facility] #[id number], 162.56, cm, 10/09/19 10:36:00 EDT, Height, 72... [...] Gm, 5 Refills, Maintenance, 07/19/19 15:19:00 EDT, [place], [facility] #[id number], 2 sprays Nares, Both Daily in AM,x30 days, 162.56, cm, 05/03/19 16:30:00 EST, Height, 72.3, kg, 09/26/18 16:01:00 EDT, Dry... Start Date: 07/19/19 Stop Date: 01/15/20 Status: Ordered Flovent HFA 44 mcg/inh inhalation aerosol 1 puffs, Inhalation, 2 times a day, # 1 each, 5 Refills, Maintenance, 06/07/20 12:52:00 EDT, Aerosol, [facility] #[id number], 162.56, cm, 05/23/20 14:31:00 EDT, Height, 77, [...] Instructions, # 1 each, Maintenance, covering for Sharrihumberto Lares Blood pressure monitor neededto monitor blood [...] 3 Refills, Maintenance, 03/02/20 19:48:00 EST, Tablet, [facility] #[id number], 30 day supply preferred for present, 162.56, [...] 05/12/18 14:45:33 EDT, Route to Pharmacy Electronically, [id number], [facility] Start Date: 05/12/18 Status: Ordered LORazepam 0.5 mg oral tablet 0.5 tablet = 0.25 mg, By Mouth, 2 times a day, PRN as needed for anxiety, # 20 tablet, 1 Refills, Maintenance, 05/16/19 23:11:00 EDT, Tablet, [facility] #[id number], 162.56, cm, 05/03/19 16:30:00 EST, Height, 72.3, kg, 09/26/18 16:01:00 EDT, Dry... Start Date: 05/16/19 Status: Ordered losartan 100 mg oral tablet 1 tablet, By Mouth, Daily, # 30 tablet, 5 Refills, Maintenance, 09/24/20 16:00:00 EDT, [facility] #[id number], 162, cm, 09/19/20 15:59:00 EDT, Height, 82.1, kg, 06/08/20 17:25:00 EDT, Dry Weight Start Date: 09/24/20 Status: Ordered meclizine 25 mg oral tablet 1 tablet = 25 mg, By Mouth, 2 times a day, # 30 tablet, 1 Refills, Maintenance, 03/30/19 15:49:00 EST, Tablet, [facility] #[id number], 162.56, cm, 03/08/19 14:34:00 EST, Height, 72.3, kg, 09/26/18 16:01:00 EDT, Dry Weight Start Date: 03/30/19 Status: Ordered Mucinex DM oral tablet, extended release 1 tablet, By Mouth, Every 12 hours, for 10 days, # 20 tablet, 0 Refills, Acute 10/08/20 13:40:00 EDT, 09/28/20 13:40:00 EDT, ER Tablet, [facility] #[id number], Partial fill upon patient request if the [...] each, 0 Refills, Maintenance, 06/04/20 16:46:00 EDT, [facility] #[id number], OK to sub for any gallon prep, [...] 12:51:00 EDT, Aerosol, Route to Pharmacy Electronically, [id number], [facility] #[id number], 1... Start Date: 06/07/20 Status: Ordered Senna 8.6 mg oral tablet 1-3 tablet, By Mouth, Daily, for constipation, # 90 tablet, Refills 5, Tot. Refills 5, Maintenance,03/26/20 15:25:00 EST, Route to Pharmacy Electronically, [facility] #[id number] Tablet, 162.56, cm, 03/21/20 15:01:00 EST, Height, [...] 100 mg, Subcutaneous Infusion, Every 28 days, [facility], # 1 each, 0 Refills, Maintenance, 09/12/20 [...] 1 Refills, Maintenance, 03/02/20 19:47:00 EST, Tablet, [facility] #[id number], 162.56, cm, 01/04/20 9:40:00 ES... Start Date: 03/02/20 Status: Ordered Zofran 4 mg oral tablet 1 tablet = 4 mg, By Mouth, 2 times a day, PRN Nausea & Vomiting, # 10 tablet, 0 Refills, Maintenance, 09/19/20 18:37:00 EDT, Tablet, [facility] #[id number], 162, cm, 09/19/20 15:59:00 EDT, Height, 82.1, [...] 2016 Active Migraine(Confirmed) Active Opioid dependence(Confirmed) Active *[id number] Care Partn renee Saavedra(Confirmed) Active Health care maintenance(Confirmed) Active Routine screening for STI (s exually transmitted infection)(Confirmed) Active Diabetes mellitus screening(Confirmed) Active Portal hypertensive gastropathy(Confirmed) 10/1/12 Active Psychological stress(Confirmed) 3 Active Rectal pain(Confirmed) [...] tolerance, and QD need over. 2genotype 02/02: [id number] is only mutation detected 3death of sister, caring for mother w/ dementia 4repeat screening colonoscopy in 2020 Diagnosis Diagnosis Type Effective Dates Health Status Clinical Service Informant External otitis of left ear Discharge Diagnosis 09/28/20 Asthma exacerbation Discharge Diagnosis 09/28/20 Vital Signs Most recent to oldest [Reference Range]: 1 Height 162 cm (09/28/20 11:25 AM) Oxygen Saturation [94-100 %] 98 % (09/28/20 11:25 AM) Pulse Rate [55-90 bpm] 91 bpm *H* (09/28/20 11:25 AM) Blood Pressure [90-138/55-84 mm Hg] 142/ 87mm Hg *H* (09/28/20 11:25 AM) Respiratory Rate [16-30 br/min] 20 br/mi n (09/28/20 11:25 AM) Temperature [96.8-100.4 DegF] 98.4 DegF (09/28/20 11:25 AM) Mode of Delivery (Oxygen) Room air (09/28/20 11:25 AM) Blood pressure sites Arm, right (09/28/20 11:25 AM) Temperature Route Oral (09/28/20 11:25 AM) Dry Weight 86.4 kg (09/28/20 11:25 AM) Dry Weight Obtained Via Standing scale (09/28/20 11:25 AM) Social History Social History Type Response Smoking Status Former smoker, quit more than 30 days ago entered on: 05/24/18 Sex
--- OUTSIDE RECORDS SUMMARY | 2022-12-13 21:32 | XMS_ITS | Continuity of Care Document ---
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 2Result Comment: #2, [facility] 3Result Comment: [facility] 4Result Comment: pharmacy 5Location History: [facility] 6Admin Note: vis 08/31/11 7Admin Note: ADMIN.BY RN 8Result Comment: [facility] 9Admin Note: Admin. by RN 10Admin Note: Admin. by RN 11Admin Note: Admin. by RN 12Admin Note: vis 06/15/15 13Admin Note: dose #6 (3rd in 2nd series) 14Admin Note: dose #5 15Admin Note: #3 16Admin Note: HINI sanofi-pasteur 17Admin Note: ADMIN BEN, INTAKE MANAGER 18Admin Note: BY LEXI Agudelo 19Admin Note: [...] tablet, 5 Refills, Maintenance, 01/08/21 18:41:00 EST, [facility] #[id number], 162, cm, 12/17/20 23:19:00 EDT, Height, 86.3, kg, 09/29/20 15:30:00 EDT, Dry Weight Start Date: 01/08/21 Stop Date: 02/07/21 Status: Ordered Albuterol (Eqv-ProAir HFA) 90 mcg/inh inhalation aerosol 2 puffs, Inhalation, Every 4 hours, PRN NEEDED FOR WHEEZING/SHORTNESS OF BREATH, USE WITH SPACERCHAMBER, # 8.5 Gm, 5 Refills, [facility] #[id number], 16, INHALE 2 PUFFS INTO LUNGS EVERY 4 HOURS NEEDED FOR WHEEZING/SHORTNESS OF BREATH. USE... Start Date: 11/13/20 Status: Ordered albuterol 0.083% inhalation solution 3 mL = 2.5 mg, Inhalation, Every 6 hours, PRN Wheezing/Shortness of Breath, # 60 each, 0 Refills, Maintenance, 06/07/20 12:51:00 EDT, Solution, [facility] #[id number], 162.56, cm, 05/23/20 14:31:00 EDT, Height, 77, [...] 2 Refills, Maintenance, 08/30/22 11:09:00 EDT, Gel, [facility] #[id number], 1 applic... Start Date: 08/30/22 Status: Ordered benzoyl peroxide 2.5% topical gel 1 application, Topically, 2 times a day, keep away from eyes and mucous membranes. clean affected area before application. Start daily and increase to twice a day if tolerated., # 60 Gm, 3 Refills, Maintenance, 09/08/22 22:51:00 EDT, [facility]... Start Date: 09/08/22 Status: Ordered Biktarvy oral tablet 1 tablet, By Mouth, Daily, # 30 tablet, 12 Refills, Maintenance, 04/17/22 7:54:00 EST, [facility] #21633, 1 tablet By Mouth Daily, 162.56, cm, 04/16/22 16:00:00 EST, Height, 87.6, kg, 10/24/21 8:00:00 EDT, Dry Weight Start Date: 04/17/22 Status: Ordered Biktarvy oral tablet See Instructions, TAKE 1 TABLET BY MOUTH DAILY, # 90 tablet, 0 Refills, Maintenance, 07/15/22 13:50:00 EDT, [facility] #[id number], 90, TAKE 1 TABLET BY MOUTH DAILY, [...] 1 Refills, Maintenance, 07/10/21 18:35:00 EDT, Tablet, [facility] #[id number], Partial fill upon patient request if the [...] 08/12/22 15:06:00 EDT, Route to Pharmacy Electronically, [facility] #[id number], 162.56, cm, 07/30/22 10:55:00 EDT, Height, 79.... Start Date: 08/12/22 Status: Ordered Colace Clear 50 mg oral capsule 1 capsule = 50 mg, By Mouth, 2 times a day, PRN as needed for constipation, # 60 capsule, 0 Refills, Maintenance, 12/05/21 15:09:00 EDT, [facility] #[id number], Partial fill upon patient requestif the prescription is for a schedule II opioid nhi... Start Date: 12/05/21 Status: Ordered diclofenac 1% topical gel = 2 Gm, Topically, 4 times a day, PRN for pain, not to exceed: 10 gm/day, # 100 Gm, 1 Refills, Maintenance, 05/29/21 16:52:00 EDT, Gel, [facility], Partial fill upon patient request if the prescription is for a schedule II opioid... Start Date: 05/29/21 Status: Ordered Dulera 200 mcg-5 mcg/inh inhalation aerosol 2 puffs, Inhalation, 2 times a day, # 1 each, 3 Refills, Maintenance, 01/28/21 16:44:00 EST, Aerosol, [facility], STOP FLOVENT, 2 puffs Inhalation 2 times a day,x30 days, 162, cm,01/28/21 16:02:00 EST, Height, 86.3, kg, 09/29/20 1... Start Date: 01/28/21 Stop Date: 05/28/21 Status: Ordered escitalopram 20 mg oral tablet 1 tablet = 20 mg, By Mouth, Daily, # 90 tablet, 3 Refills, Maintenance, 11/04/22 16:35:00 EDT, Tablet, [facility] #[id number], 162.56, cm, 10/20/22 7:18:00 EDT, Height, 79.54, kg, 07/30/22 10:55:00 EDT, Dry Weight Start Date: 11/04/22 Status: Ordered ferrous fumarate 324 mg oral tablet 1 tablet = 324 mg, By Mouth, Every other day, # 45 tablet, 0 Refills, Maintenance, 07/31/22 11:19:00 EDT, Tablet, [facility] #[id number], Partial fill upon patient request if the [...] Gm, 5 Refills, Maintenance, 07/19/19 15:19:00 EDT, [place], [facility] #[id number], 2 sprays Nares, Both Daily in AM,x30 [...] 09/24/22 17:20:00 EDT, Route to Pharmacy Electronically, [facility] #[id number], 162.56, cm, 09/17/22 12:56:00 EDT, Heigh... Start [...] Instructions, # 1 each, Maintenance, covering for [facility] Blood pressure monitor neededto monitor blood [...] 2 Refills, Maintenance, 07/30/22 12:17:00 EDT, Syrup, [facility] #[id number], 30 mL By Mouth 4 times a day, 162.56, cm, 07/30/22 10:55:00 EDT,Height, 79.54, kg, 07/30/22 10:55:00 EDT, Dry Weight Start Date: 07/30/22 Status: Ordered losartan 100 mg oral tablet 1 tablet, By Mouth, Daily, # 30 tablet, 5 Refills, [facility] #[id number], 162, cm, 10/09/21 16:19:00 EDT, Height, 86.3, kg, 09/29/20 15:30:00 EDT, Dry Weight Start Date: 10/20/21 Status: Ordered meclizine 25 mg oral tablet 1 tablet = 25 mg, By Mouth, 2 times a day, # 30 tablet, 1 Refills, Maintenance, 07/10/21 17:25:00 EDT, Tablet, [facility] #[id number], 162, cm, 06/19/21 15:40:00 EDT, Height, 86.3, kg, 09/29/20 15:30:00 EDT, Dry Weight Start Date: 07/10/21 Status: Ordered multivitamin with iron Multiple Vitamins with Iron oral tablet 1 tablet, By Mouth, Daily, # 30 tablet, 11 Refills, Maintenance, 04/17/22 7:51:00 EST, Tablet, [facility] #[id number], 1 tablet By Mouth Daily, 162.56, cm, 04/16/22 16:00:00 EST, Height, 87.6, kg, 10/24/21 8:00:00 EDT, Dry Weight Start Date: 04/17/22 Status: Ordered Narcan 4 mg/0.1 mL nasal spray = 4 mg, Inhalation, Once, # 2 each, 1 Refills, Soft Stop, 10/29/20 12:23:00 EDT, [facility] #[id number], Partial fill upon patient request if the prescription is for a schedule II opioid drug., 162, cm, 09/29/20 15:30:00 EDT, Height, 86.3, kg, 08... Start Date: 10/29/20 Status: Ordered ondansetron 4 mg oral tablet 1 tablet = 4 mg, By Mouth, Daily, PRN Nausea & Vomiting, # 10 tablet, 3 Refills, Maintenance, 06/25/22 17:28:00 EDT, [facility] #[id number], 162.56, cm, 06/25/22 16:16:00 EDT, Height, 87.6, [...] tablet, 11 Refills, Maintenance, 11/30/22 11:14:00EDT, Tablet, [facility] #[id number], 162.56, cm, 11/26/22 13:24:00 EDT, Height, 79.54, kg, 07/30/22 10:55:00 EDT, Dry Weight Start Date: 11/30/22 Status: Ordered Senna 8.6 mg oral tablet 1-3 tablet, By Mouth, Daily, for constipation, # 90 tablet, Refills 5, Tot. Refills 5, Maintenance,03/26/20 15:25:00 EST, Route to Pharmacy Electronically, [facility] #[id number] Tablet, 162.56, cm, 03/21/20 15:01:00 EST, Height, [...] 09/24/22 17:20:00 EDT, Route to Pharmacy Electronically, [facility] #[id number], 162.56, cm, 09/17/22 12:56:00 EDT, Heigh... Start Date: 09/24/22 Status: Ordered Suboxone 8 mg-2 mg Sublingual Film 2 film, Sublingual, Daily, dissolve under the tongue may fill less, # 28 film, 0 Refills, Maintenance, 12/02/22 18:26:00 EDT, Film, [facility] #[id number], 2 film Sublingual Daily,x14 days,Instr:dissolve under the tongue; may fill less, 162.56,... Start Date: 12/02/22 Stop Date: 12/16/22 Status: Ordered SUMAtriptan 25 mg oral tablet 1 tablet = 25 mg, By Mouth, Daily, PRN as needed for migraine headache, may repeat dose after 2 hours up to a maximum of 2, # 6 tablet, 1 Refills, Maintenance, 03/02/20 19:47:00 EST, Tablet, [facility] #35006, 162.56, cm, 01/04/20 9:40:00 ES... 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 2genotype 02/02: [id number] is only mutation detected 3death of sister, caring for mother w/ dementia 4repeat screening colonoscopy in 2020 Social History Social History Type Response Smoking Status Former smoker, quit more than 30 days ago entered on: 12/05/21 Sex Patient Care team information Care Team Personnel Name: Kahlil Sun MD Position: [facility] Physician - Primary Care Member Role: PCP Address: Address: [address] [place] [address] Name: Sharri Prince Position: [facility] PCO Associate Professional Member Role: Lifetime Consulting Provider Care Team Related Persons Name: SHANITA MENDOZA Address: [address] [place] [address] Name: SHANITA MENDOZA [facility] Address: home [address] Name: ULICES PEARSON Name: ULICES ESPARZA Address: [place] [address] Name: LALA LI
--- OUTSIDE RECORDS SUMMARY | 2022-12-13 21:32 | XMS_ITS | Continuity of Care Document ---
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 Start Date: 06/07/19 Status: Ordered Biktarvy oral tablet 1 tablet, By Mouth, Daily, # 30 tablet, 11 Refills, Maintenance, 06/29/19 16:26:00 EDT, [facility] #[id number], 1 tablet By Mouth Daily, 162.56, cm, 05/03/19 16:30:00 EST, Height, 72.3, kg, 09/26/18 16:01:00 EDT, Dry Weight Start Date: 06/29/19 Status: Ordered Blood Pressure Meter Blood Pressure Meter, See Instructions, # 1 each, Refills 0, Tot. Refills 0, Maintenance, Use for, 07/11/18 16:11:47 EDT, Compound Start Date: 07/11/18 Status: Ordered buprenorphine-naloxone 2 mg-0.5 mg sublingual film 0.25 each, Sublingual, Daily, Dino [id number], # 8 film, 0 Refills, Maintenance, 12/15/19 19:00:00 EDT, [facility] #[id number], Partial fill on request., 0.25 each Sublingual Daily,Instr:Dino [id number], 162.56, cm, 10/09/19 10:36:00 EDT, .. Start Date: 12/15/19 Status: Ordered cetirizine 10 mg oral tablet 1 tablet = 10 mg, By Mouth, Daily, For allergies., # 30 tablet, 2 Refills, Maintenance, 06/29/19 16:02:00 EDT, Tablet, [facility] #[id number], 162.56, cm, 05/03/19 16:30:00 EST, Height, 72.3, kg, 09/26/18 16:01:00 EDT, Dry Weight Start Date: 06/29/19 Status: Ordered cloNIDine 0.1 mg oral tablet 0.1 mg, 1, tablet, By Mouth, 3 times a day, as needed for anxiety, # 25 tablet, Refills 0, Tot. Refills 0, Maintenance, 10/10/19 21:36:00 EDT, Route to Pharmacy Electronically, [facility] #[id number], 162.56, cm, 10/09/19 10:36:00 EDT, Height, 72... [...] Gm, 5 Refills, Maintenance, 07/19/19 15:19:00 EDT, [place], [facility] #[id number], 2 sprays Nares, Both Daily in AM,x30 days, 162.56, cm, 05/03/19 16:30:00 EST, Height, 72.3, kg, 09/26/18 16:01:00 EDT, Dry... Start Date: 07/19/19 Stop Date: 01/15/20 Status: Ordered Flovent HFA 44 mcg/inh inhalation aerosol 1 puffs, Inhalation, 2 times a day, # 1 each, 5 Refills, Maintenance, 06/29/19 16:26:00 EDT, Aerosol, [facility] #[id number], 162.56, cm, 05/03/19 16:30:00 EST, Height, 72.3, [...] 5 Refills, Maintenance, 09/11/19 10:29:00 EDT, Tablet, [facility] #[id number], 30 day supply preferred for present, 162.56, [...] 05/12/18 14:45:33 EDT, Route to Pharmacy Electronically, [id number], [facility] Start Date: 05/12/18 Status: Ordered LORazepam 0.5 mg oral tablet 0.5 tablet = 0.25 mg, By Mouth, 2 times a day, PRN as needed for anxiety, # 20 tablet, 1 Refills, Maintenance, 05/16/19 23:11:00 EDT, Tablet, [facility] #[id number], 162.56, cm, 05/03/19 16:30:00 EST, Height, 72.3, kg, 09/26/18 16:01:00 EDT, Dry... Start Date: 05/16/19 Status: Ordered losartan 100 mg oral tablet 1 tablet = 100 mg, By Mouth, Daily, # 30 tablet, 11 Refills, Maintenance, 06/29/19 15:59:00 EDT, Tablet, [facility] #[id number], 162.56, cm, 05/03/19 16:30:00 EST, Height, 72.3, kg, 09/26/18 16:01:00 EDT, Dry Weight Start Date: 06/29/19 Status: Ordered meclizine 25 mg oral tablet 1 tablet = 25 mg, By Mouth, 2 times a day, # 30 tablet, 1 Refills, Maintenance, 03/30/19 15:49:00 EST, Tablet, [facility] #[id number], 162.56, cm, 03/08/19 14:34:00 EST, Height, 72.3, [...] 15:00:00 EDT, Aerosol, Route to Pharmacy Electronically, [id number], [facility] #[id number], 1... Start Date: 06/07/19 Status: Ordered Senna 8.6 mg oral tablet 1-3 tablet, By Mouth, Daily, for constipation, # 90 tablet, Refills 5, Tot. Refills 5, Maintenance,02/17/18 15:12:45 EST, Route to Pharmacy Electronically, [id number], [facility] Tablet Start Date: 02/17/18 Status: Ordered Spacer for inhalers Spacer for inhalers, See Instructions, # 1 each, Refills 0, Tot. Refills 0, Maintenance, Use with inhalers as directed. Ukrainian., 04/08/20 15:07:00 EDT, Compound, 162.56, cm, 05/03/19 16:30:00 EST, Height, 72.3, kg, 09/26/18 16:01:00 EDT, Dry Weight Start Date: 06/07/19 Status: Ordered SUMAtriptan 25 mg oral tablet 1 tablet = 25 mg, By Mouth, Daily, PRN as needed for migraine headache, may repeat dose after 2 hours up to a maximum of 2, # 6 tablet, 1 Refills, Maintenance, 04/18/19 13:31:00 EST, Tablet, [facility] #92936, 162.56, cm, 03/08/19 14:34:00 E... Start Date: 04/18/19 Status: Ordered Zofran 4 mg oral tablet 1 tablet = 4 mg, By Mouth, 2 times a day, PRN Nausea & Vomiting, # 10 tablet, 0 Refills, Maintenance, 11/20/19 21:40:00 EDT, Tablet, [facility] #[id number], 162.56, cm, 10/09/19 10:36:00 EDT, Height, 72.3, kg, 09/26/18 16:01:00 EDT, Dry Weight Start Date: 11/20/19 Status: Ordered zolpidem 5 mg oral tablet [...] 2016 Active Migraine(Confirmed) Active Opioid dependence(Confirmed) Active *[id number] Care Partn er April Saavedra(Confirmed) Active Health [...] tolerance, and QD need over. 2genotype 02/02: [id number] is only mutation detected 3death of sister, caring for mother w/ dementia 4repeat screening colonoscopy in 2020 Social History Social History Type Response Smoking Status Former smoker, quit more than 30 days ago entered on: 05/24/18 Sex
--- OUTSIDE RECORDS SUMMARY | 2022-12-13 21:32 | XMS_ITS | Continuity of Care Document ---
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 Phone Kahlil Sun MD Primary Care Physician [phone] Encounter [facility] Date(s): 03/21/20 - 04/20/20 [facility] [address] [place] [address]- Allergies, Adverse Reactions, Alerts Substance Reaction Severity [...] tetanus-diphtheria toxoids (Td) 03/10/01 Given 1Result Comment: [facility] 2Result Comment: pharmacy 3Location History: [facility] [...] tablet, 5 Refills, Maintenance, 01/26/20 16:20:00 EST, [facility], 162.56, cm, 10/09/19 10:36:00 EDT, Height, 72.3, kg, 09/26/18 16:01:00 EDT, Dry Weight Start Date: 01/26/20 Stop Date: 02/25/20 Status: Ordered albuterol 0.083% inhalation solution 3 mL = 2.5 mg, Inhalation, Every 6 hours, PRN Wheezing/Shortness of Breath, # 60 each, 0 Refills, Maintenance, 06/07/19 14:59:00 EDT, Solution, [email or web address] #63955, 162.56, cm, 05/03/19 16:30:00 EST, Height, 72.3, kg, 09/26/18 16:01:00 EDT, Start Date: 06/07/19 Status: Ordered Biktarvy oral tablet 1 tablet, By Mouth, Daily, # 90 tablet, 3 Refills, Maintenance, 03/02/20 19:50:00 EST, [email or web address] #18809, 1 tablet By Mouth Daily, 162.56, cm, 01/04/20 9:40:00 EST, Height, 72.3, kg, 09/26/18 16:01:00 EDT, Dry Weight Start Date: 03/02/20 Status: Ordered Blood Pressure Meter Blood Pressure Meter, See Instructions, # 1 each, Refills 0, Tot. Refills 0, Maintenance, Use for, 07/11/18 16:11:47 EDT, Compound Start Date: 07/11/18 Status: Ordered buprenorphine-naloxone 2 mg-0.5 mg sublingual film 1 film, Sublingual, Daily, [place] [id number], # 14 film, 0 Refills, Maintenance, 02/08/20 16:47:00 EST, [email or web address] #15450, Partial fill on request., 1 film Sublingual Daily,Instr:Dino [id number], 162.56, cm, 01/04/20 9:40:00 EST, Height, 7... Start Date: 02/08/20 Status: Ordered buprenorphine-naloxone 2 mg-0.5 mg sublingual film 0.25 each, Sublingual, Daily, Dino [id number], # 8 film, 0 Refills, Maintenance, 12/15/19 19:00:00 EDT, [facility] #[id number], Partial fill on request., 0.25 each Sublingual Daily,Instr:Dino [id number], 162.56, cm, 10/09/19 10:36:00 EDT, [place]i... Start Date: 12/15/19 Status: Ordered cetirizine 10 mg oral tablet 1 tablet = 10 mg, By Mouth, Daily, For allergies., # 30 tablet, 2 Refills, Maintenance, 06/29/19 16:02:00 EDT, Tablet, [facility] #[id number], 162.56, cm, 05/03/19 16:30:00 EST, Height, 72.3, kg, 09/26/18 16:01:00 EDT, Dry Weight Start Date: 06/29/19 Status: Ordered cloNIDine 0.1 mg oral tablet 0.1 mg, 1, tablet, By Mouth, 3 times a day, as needed for anxiety, # 25 tablet, Refills 0, Tot. Refills 0, Maintenance, 10/10/19 21:36:00 EDT, Route to Pharmacy Electronically, [facility] #[id number], 162.56, cm, 10/09/19 10:36:00 EDT, Height, 72... [...] Gm, 5 Refills, Maintenance, 07/19/19 15:19:00 EDT, [place], [facility] #[id number], 2 sprays Nares, Both Daily in AM,x30 days, 162.56, cm, 05/03/19 16:30:00 EST, Height, 72.3, kg, 09/26/18 16:01:00 EDT, Dry... Start Date: 07/19/19 Stop Date: 01/15/20 Status: Ordered Flovent HFA 44 mcg/inh inhalation aerosol 1 puffs, Inhalation, 2 times a day, # 1 each, 5 Refills, Maintenance, 06/29/19 16:26:00 EDT, Aerosol, [email or web address] #90041, 162.56, cm, 05/03/19 16:30:00 EST, Height, 72.3, [...] # 1 each, Maintenance, covering for [facility] Blood pressure monitor neededto monitor [...] 3 Refills, Maintenance, 03/02/20 19:48:00 EST, Tablet, [email or web address] #14293, 30 day supply preferred for present, 162.56, [...] 05/12/18 14:45:33 EDT, Route to Pharmacy Electronically, [id number], [facility] Start Date: 05/12/18 Status: Ordered LORazepam 0.5 mg oral tablet 0.5 tablet = 0.25 mg, By Mouth, 2 times a day, PRN as needed for anxiety, # 20 tablet, 1 Refills, Maintenance, 05/16/19 23:11:00 EDT, Tablet, [email or web address] #98781, 162.56, cm, 05/03/19 16:30:00 EST, Height, 72.3, kg, 09/26/18 16:01:00 EDT, Dry... Start Date: 05/16/19 Status: Ordered losartan 100 mg oral tablet 1 tablet = 100 mg, By Mouth, Daily, # 30 tablet, 11 Refills, Maintenance, 06/29/19 15:59:00 EDT, Tablet, [email or web address] #21940, 162.56, cm, 05/03/19 16:30:00 EST, Height, 72.3, kg, 09/26/18 16:01:00 EDT, Dry Weight Start Date: 06/29/19 Status: Ordered meclizine 25 mg oral tablet 1 tablet = 25 mg, By Mouth, 2 times a day, # 30 tablet, 1 Refills, Maintenance, 03/30/19 15:49:00 EST, Tablet, [email or web address] #81070, 162.56, cm, 03/08/19 14:34:00 EST, Height, 72.3, [...] 15:00:00 EDT, Aerosol, Route to Pharmacy Electronically, [id number], [facility] #[id number], 1... Start Date: 06/07/19 Status: Ordered Senna 8.6 mg oral tablet 1-3 tablet, By Mouth, Daily, for constipation, # 90 tablet, Refills 5, Tot. Refills 5, Maintenance,03/26/20 15:25:00 EST, Route to Pharmacy Electronically, [email or web address] #17278 Tablet, 162.56, cm, 03/21/20 15:01:00 EST, Height, 77, kg, ... Start Date: 03/26/20 Status: Ordered Spacer for inhalers Spacer for inhalers, See Instructions, # 1 each, Refills 0, Tot. Refills 0, Maintenance, Use with inhalers as directed. Ghanaian., 06/07/19 15:07:00 EDT, Compound, 162.56, cm, 05/03/19 16:30:00 EST, Height, 72.3, kg, 09/26/18 16:01:00 EDT, Dry Weight Start Date: 06/07/19 Status: Ordered SUMAtriptan 25 mg oral tablet 1 tablet = 25 mg, By Mouth, Daily, PRN as needed for migraine headache, may repeat dose after 2 hours up to a maximum of 2, # 6 tablet, 1 Refills, Maintenance, 03/02/20 19:47:00 EST, Tablet, [facility] #04887, 162.56, cm, 01/04/20 9:40:00 ES... Start Date: 03/02/20 Status: Ordered Zofran 4 mg oral tablet 1 tablet = 4 mg, By Mouth, 2 times a day, PRN Nausea & Vomiting, # 10 tablet, 0 Refills, Maintenance, 03/02/20 19:47:00 EST, Tablet, [facility] #[id number], 162.56, cm, 01/04/20 9:40:00 EST,Height, 72.3, kg, [...] 2016 Active Migraine(Confirmed) Active Opioid dependence(Confirmed) Active *[id number] Care Partn renee Chen Saavedra(Confirmed) Active Health [...] tolerance, and QD need over. 2genotype 02/02: [id number] is only mutation detected 3death of sister, caring for mother w/ dementia 4repeat screening colonoscopy in 2020 Social History Social History Type Response Smoking Status Former smoker, quit more than 30 days ago entered on: 05/24/18 Sex
--- OUTSIDE RECORDS SUMMARY | 2022-12-13 21:32 | XMS_ITS | Continuity of Care Document ---
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 2Result Comment: #2, [facility] 3Result Comment: [facility] 4Result Comment: pharmacy 5Location History: [facility] 6Admin Note: vis 08/31/11 7Admin Note: ADMIN.BY RN 8Result Comment: [facility] 9Admin Note: Admin. by RN 10Admin Note: Admin. by RN 11Admin Note: Admin. 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, [employer] 18Admin Note: BY LEXI Agudelo 19Admin Note: [...] 1 Refills, Maintenance, 09/12/20 16:18:00EDT, CR Tablet, [facility] #[id number], Partial fill upon patient request if the prescription is for a schedule II opioid drug., 162, cm, 09/12/20... Start Date: 09/12/20 Status: Ordered acyclovir 400 mg oral tablet 1 tablet = 400 mg, By Mouth, 2 times a day, # 10 tablet, 5 Refills, Maintenance, 01/08/21 18:41:00 EST, [facility] #14291, 162, cm, 12/17/20 23:19:00 EDT, Height, 86.3, kg, 09/29/20 15:30:00 EDT, Dry Weight Start Date: 01/08/21 Stop Date: 02/07/21 Status: Ordered Albuterol (Eqv-ProAir HFA) 90 mcg/inh inhalation aerosol 2 puffs, Inhalation, Every 4 hours, PRN NEEDED FOR WHEEZING/SHORTNESS OF BREATH, USE WITH SPACERCHAMBER, # 8.5 Gm, 5 Refills, [facility] #[id number], 16, INHALE 2 PUFFS INTO LUNGS EVERY 4 HOURS NEEDED FOR WHEEZING/SHORTNESS OF BREATH. USE... Start Date: 11/13/20 Status: Ordered albuterol 0.083% inhalation solution 3 mL = 2.5 mg, Inhalation, Every 6 hours, PRN Wheezing/Shortness of Breath, # 60 each, 0 Refills, Maintenance, 06/07/20 12:51:00 EDT, Solution, [facility] #[id number], 162.56, cm, 05/23/20 14:31:00 EDT, Height, 77, [...] tablet, 3 Refills, Maintenance, 03/02/20 19:50:00 EST, [facility] #71850, 1 tablet By Mouth Daily, 162.56, cm, [...] 2 Refills, Maintenance, 06/29/19 16:02:00 EDT, Tablet, [facility] #60531, 162.56, cm, 05/03/19 16:30:00 EST, Height, 72.3, kg, 09/26/18 16:01:00 EDT, Dry Weight Start Date: 06/29/19 Status: Ordered cloNIDine 0.1 mg oral tablet 0.1 mg, 1, tablet, By Mouth, 3 times a day, as needed for anxiety, # 25 tablet, Refills 0, Tot. Refills 0, Maintenance, 10/10/19 21:36:00 EDT, Route to Pharmacy Electronically, [facility] #[id number], 162.56, cm, 10/09/19 10:36:00 EDT, Height, 72... Start Date: 10/10/19 Status: Ordered Dulera 200 mcg-5 mcg/inh inhalation aerosol 2 puffs, Inhalation, 2 times a day, # 1 each, 3 Refills, Maintenance, 01/28/21 16:44:00 EST, Aerosol, [facility], STOP FLOVENT, 2 puffs Inhalation [...] Gm, 5 Refills, Maintenance, 07/19/19 15:19:00 EDT, [place], [facility] #43551, 2 sprays Nares, Both Daily in AM,x30 days, 162.56, cm, 05/03/19 16:30:00 EST, Height, 72.3, kg, 09/26/18 16:01:00 EDT, Dry... Start Date: 07/19/19 Stop Date: 01/15/20 Status: Ordered fluconazole 150 mg oral tablet 1 tablet = 150 mg, By Mouth, Once, # 1 tablet, 1 Refills, Soft Stop, 01/08/21 19:37:00 EST, Tablet,[facility] #77609, 162, cm, 12/17/20 23:19:00 EDT, Height, 86.3, [...] 01/28/21 16:28:00 EST, Route to Pharmacy Electronically, [facility], STOP HCTZ, 162, cm, 01/28/21 [...] 05/12/18 14:45:33 EDT, Route to Pharmacy Electronically, [id number], [facility] Start Date: 05/12/18 Status: Ordered LORazepam 0.5 mg oral tablet 0.5 tablet = 0.25 mg, By Mouth, 2 times a day, PRN as needed for anxiety, # 20 tablet, 1 Refills, Maintenance, 05/16/19 23:11:00 EDT, Tablet, [facility] #71455, 162.56, cm, 05/03/19 16:30:00 EST, Height, 72.3, kg, 09/26/18 16:01:00 EDT, Dry... Start Date: 05/16/19 Status: Ordered losartan 100 mg oral tablet 1 tablet, By Mouth, Daily, # 30 tablet, 5 Refills, Maintenance, 09/24/20 16:00:00 EDT, [facility] #99458, 162, cm, 09/19/20 15:59:00 EDT, Height, 82.1, kg, 06/08/20 17:25:00 EDT, Dry Weight Start Date: 09/24/20 Status: Ordered meclizine 25 mg oral tablet 1 tablet = 25 mg, By Mouth, 2 times a day, # 30 tablet, 1 Refills, Maintenance, 03/30/19 15:49:00 EST, Tablet, [facility] #56638, 162.56, cm, 03/08/19 14:34:00 EST, Height, 72.3, kg, 09/26/18 16:01:00 EDT, Dry Weight Start Date: 03/30/19 Status: Ordered Narcan 4 mg/0.1 mL nasal spray = 4 mg, Inhalation, Once, # 2 each, 1 Refills, Soft Stop, 10/29/20 12:23:00 EDT, [facility] #[id number], Partial fill upon patient request if the [...] each, 0 Refills, Maintenance, 06/04/20 16:46:00 EDT, [facility] #27402, OK to sub for any gallon prep, used as directed, 162.56, cm, 05/23/20 14:31:00 EDT, Height, 77, kg, 03/21/20 15:04:00 EST, Dry We... Start Date: 06/04/20 Status: Ordered predniSONE 50 mg oral tablet 1 tablet = 50 mg, By Mouth, Daily, # 7 tablet, 0 Refills, Maintenance, 01/28/21 16:37:00 EST, Tablet, [facility], Partial fill upon patient request if the prescription is for a schedule II opioid drug., 162, cm, 01/28/21 16:02:00 E... Start Date: 01/28/21 Stop Date: 02/04/21 Status: Ordered Senna 8.6 mg oral tablet 1-3 tablet, By Mouth, Daily, for constipation, # 90 tablet, Refills 5, Tot. Refills 5, Maintenance,03/26/20 15:25:00 EST, Route to Pharmacy Electronically, [facility] #[id number] Tablet, 162.56, cm, 03/21/20 15:01:00 EST, Height, [...] Refills, Maintenance, 01/28/21 16:29:00 EST, Tablet, [facility], STOP HCTZ, 162, cm, 01/28/21 [...] under the tongue increase in dose 01/22/2021 [id number], # 60 film, 0 Refills, Maintenance, 01/22/21 13:49:00 EST, Film, [facility] #[id number], Partial fill upon patient request if the prescription is for a... Start Date: 01/22/21 Status: Ordered SUMAtriptan 25 mg oral tablet 1 tablet = 25 mg, By Mouth, Daily, PRN as needed for migraine headache, may repeat dose after 2 hours up to a maximum of 2, # 6 tablet, 1 Refills, Maintenance, 03/02/20 19:47:00 EST, Tablet, [facility] #[id number], 162.56, cm, 01/04/20 9:40:00 ES... Start Date: 03/02/20 Status: Ordered Zofran 4 mg oral tablet 1 tablet = 4 mg, By Mouth, 2 times a day, PRN Nausea & Vomiting, # 10 tablet, 0 Refills, Maintenance, 12/01/20 20:26:00 EDT, Tablet, [facility] #24102, 162, cm, 10/29/20 17:08:00 EDT, Height, 86.3, [...] Obese class II(Confirmed) Active Opioid dependence(Confirmed) Active *[id number] Care Partn er April Saavedra(Confirmed) Active Health [...] tolerance, and QD need over. 2genotype 02/02: [id number] is only mutation detected 3death of sister, caring for mother w/ dementia 4repeat screening colonoscopy in 2020 Social History Social History Type Response Smoking Status Former smoker, quit more than 30 days ago entered on: 10/29/20 Sex
--- OUTSIDE RECORDS SUMMARY | 2022-12-13 21:32 | XMS_ITS | Continuity of Care Document ---
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 Phone Dino PEREZ, Kahlil Barrera Primary Care Physician Encounter [facility] Date(s): 02/08/20 - 03/09/20 [facility] De Annabelle [address] [place] [id number]- Allergies, Adverse Reactions, Alerts Substance Reaction Severity [...] tetanus-diphtheria toxoids (Td) 03/10/01 Given 1Result Comment: [facility] 2Result Comment: pharmacy 3Location History: [facility] 4Admin [...] tablet, 5 Refills, Maintenance, 01/26/20 16:20:00 EST, [facility], 162.56, cm, 10/09/19 10:36:00 EDT, Height, 72.3, kg, 09/26/18 16:01:00 EDT, Dry Weight Start Date: 01/26/20 Stop Date: 02/25/20 Status: Ordered albuterol 0.083% inhalation solution 3 mL = 2.5 mg, Inhalation, Every 6 hours, PRN Wheezing/Shortness of Breath, # 60 each, 0 Refills, Maintenance, 06/07/19 14:59:00 EDT, Solution, [facility] #[id number], 162.56, cm, 05/03/19 16:30:00 EST, Height, 72.3, kg, 09/26/18 16:01:00 EDT, . Start Date: 06/07/19 Status: Ordered Biktarvy oral tablet 1 tablet, By Mouth, Daily, # 90 tablet, 3 Refills, Maintenance, 03/02/20 19:50:00 EST, [facility] #[id number], 1 tablet By Mouth Daily, 162.56, cm, 01/04/20 9:40:00 EST, Height, 72.3, kg, 09/26/18 16:01:00 EDT, Dry Weight Start Date: 03/02/20 Status: Ordered Blood Pressure Meter Blood Pressure Meter, See Instructions, # 1 each, Refills 0, Tot. Refills 0, Maintenance, Use for, 07/11/18 16:11:47 EDT, Compound Start Date: 07/11/18 Status: Ordered buprenorphine-naloxone 2 mg-0.5 mg sublingual film 1 film, Sublingual, Daily, [place] [id number], # 14 film, 0 Refills, Maintenance, 02/08/20 16:47:00 EST, [facility] #[id number], Partial fill on request., 1 film Sublingual Daily,Instr:Dino [id number], 162.56, cm, 01/04/20 9:40:00 EST, Height, 7... Start Date: 02/08/20 Status: Ordered buprenorphine-naloxone 2 mg-0.5 mg sublingual film 0.25 each, Sublingual, Daily, [place] [id number], # 8 film, 0 Refills, Maintenance, 12/15/19 19:00:00 EDT, [facility] #51599, Partial fill on request., 0.25 each Sublingual Daily,Instr:Dino [id number], 162.56, cm, 10/09/19 10:36:00 EDT, Hei... Start Date: 12/15/19 Status: Ordered cetirizine 10 mg oral tablet 1 tablet = 10 mg, By Mouth, Daily, For allergies., # 30 tablet, 2 Refills, Maintenance, 06/29/19 16:02:00 EDT, Tablet, [facility] #60915, 162.56, cm, 05/03/19 16:30:00 EST, Height, 72.3, kg, 09/26/18 16:01:00 EDT, Dry Weight Start Date: 06/29/19 Status: Ordered cloNIDine 0.1 mg oral tablet 0.1 mg, 1, tablet, By Mouth, 3 times a day, as needed for anxiety, # 25 tablet, Refills 0, Tot. Refills 0, Maintenance, 10/10/19 21:36:00 EDT, Route to Pharmacy Electronically, [facility] #[id number], 162.56, cm, 10/09/19 10:36:00 EDT, Height, 72... [...] 5 Refills, Maintenance, 07/19/19 15:19:00 EDT, [place], [facility] #49940, 2 sprays Nares, Both Daily in AM,x30 days, 162.56, cm, 05/03/19 16:30:00 EST, Height, 72.3, kg, 09/26/18 16:01:00 EDT, Dry... Start Date: 07/19/19 Stop Date: 01/15/20 Status: Ordered Flovent HFA 44 mcg/inh inhalation aerosol 1 puffs, Inhalation, 2 times a day, # 1 each, 5 Refills, Maintenance, 06/29/19 16:26:00 EDT, Aerosol, [facility] #42543, 162.56, cm, 05/03/19 16:30:00 EST, Height, 72.3, [...] Instructions, # 1 each, Maintenance, covering for [facility] Blood pressure monitor neededto monitor blood [...] 3 Refills, Maintenance, 03/02/20 19:48:00 EST, Tablet, [facility] #[id number], 30 day supply preferred for present, 162.56, [...] 05/12/18 14:45:33 EDT, Route to Pharmacy Electronically, [id number], [facility] Start Date: 05/12/18 Status: Ordered LORazepam 0.5 mg oral tablet 0.5 tablet = 0.25 mg, By Mouth, 2 times a day, PRN as needed for anxiety, # 20 tablet, 1 Refills, Maintenance, 05/16/19 23:11:00 EDT, Tablet, [facility] #[id number], 162.56, cm, 05/03/19 16:30:00 EST, Height, 72.3, kg, 09/26/18 16:01:00 EDT, Dry... Start Date: 05/16/19 Status: Ordered losartan 100 mg oral tablet 1 tablet = 100 mg, By Mouth, Daily, # 30 tablet, 11 Refills, Maintenance, 06/29/19 15:59:00 EDT, Tablet, [facility] #[id number], 162.56, cm, 05/03/19 16:30:00 EST, Height, 72.3, kg, 09/26/18 16:01:00 EDT, Dry Weight Start Date: 06/29/19 Status: Ordered meclizine 25 mg oral tablet 1 tablet = 25 mg, By Mouth, 2 times a day, # 30 tablet, 1 Refills, Maintenance, 03/30/19 15:49:00 EST, Tablet, [facility] #34338, 162.56, cm, 03/08/19 14:34:00 EST, Height, 72.3, [...] 15:00:00 EDT, Aerosol, Route to Pharmacy Electronically, [id number], [facility] #[id number], 1... Start Date: 06/07/19 Status: Ordered Senna 8.6 mg oral tablet 1-3 tablet, By Mouth, Daily, for constipation, # 90 tablet, Refills 5, Tot. Refills 5, Maintenance,02/17/18 15:12:45 EST, Route to Pharmacy Electronically, [id number], [facility] Tablet Start Date: 02/17/18 Status: Ordered Spacer for inhalers Spacer for inhalers, See Instructions, # 1 each, Refills 0, Tot. Refills 0, Maintenance, Use with inhalers as directed. Italian., 06/07/19 15:07:00 EDT, Compound, 162.56, cm, 05/03/19 16:30:00 EST, Height, 72.3, kg, 09/26/18 16:01:00 EDT, Dry Weight Start Date: 06/07/19 Status: Ordered SUMAtriptan 25 mg oral tablet 1 tablet = 25 mg, By Mouth, Daily, PRN as needed for migraine headache, may repeat dose after 2 hours up to a maximum of 2, # 6 tablet, 1 Refills, Maintenance, 03/02/20 19:47:00 EST, Tablet, [facility] #[id number], 162.56, cm, 01/04/20 9:40:00 ES... Start Date: 03/02/20 Status: Ordered Zofran 4 mg oral tablet 1 tablet = 4 mg, By Mouth, 2 times a day, PRN Nausea & Vomiting, # 10 tablet, 0 Refills, Maintenance, 03/02/20 19:47:00 EST, Tablet, [facility] #77541, 162.56, cm, 01/04/20 9:40:00 EST,Height, 72.3, kg, [...] 2016 Active Migraine(Confirmed) Active Opioid dependence(Confirmed) Active *[id number] Care Partn renee Saavedra(Confirmed) Active Health care [...] tolerance, and QD need over. 2genotype 02/02: [id number] is only mutation detected 3death of sister, caring for mother w/ dementia 4repeat screening colonoscopy in 2021 Social History Social History Type Response Smoking Status Former smoker, quit more than 30 days ago entered on: 05/24/18 Sex
--- OUTSIDE RECORDS SUMMARY | 2022-12-13 21:32 | XMS_ITS | Continuity of Care Document ---
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 by RN 9Admin Note: Admin. by RN 10Admin Note: Admin. 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 Start Date: 09/12/20 Status: Ordered acyclovir 400 mg oral tablet 1 tablet = 400 mg, By Mouth, 2 times a day, # 10 tablet, 5 Refills, Maintenance, 01/26/20 16:20:00 EST, [facility], 162.56, cm, 10/09/19 10:36:00 EDT, Height, 72.3, kg, 09/26/18 16:01:00 EDT, Dry Weight Start Date: 01/26/20 Stop Date: 02/25/20 Status: Ordered albuterol 0.083% inhalation solution 3 mL = 2.5 mg, Inhalation, Every 6 hours, PRN Wheezing/Shortness of Breath, # 60 each, 0 Refills, Maintenance, 06/07/20 12:51:00 EDT, Solution, [facility] #[id number], 162.56, cm, 05/23/20 14:31:00 EDT, Height, 77, [...] tablet, 3 Refills, Maintenance, 03/02/20 19:50:00 EST, [facility] #44205, 1 tablet By Mouth Daily, 162.56, cm, 01/04/20 9:40:00 EST, Height, 72.3, kg, 09/26/18 16:01:00 EDT, Dry Weight Start Date: 03/02/20 Status: Ordered Blood Pressure Meter Blood Pressure Meter, See Instructions, # 1 each, Refills 0, Tot. Refills 0, Maintenance, Use for, 07/11/18 16:11:47 EDT, Compound Start Date: 07/11/18 Status: Ordered buprenorphine-naloxone 2 mg-0.5 mg sublingual film 0.25 each, Sublingual, Daily, [place] [id number], # 8 film, 0 Refills, Maintenance, 12/15/19 19:00:00 EDT, [facility] #[id number], Partial fill on request., 0.25 each Sublingual Daily,Instr:Dino [id number], 162.56, cm, 10/09/19 10:36:00 EDT, Hei... Start Date: 12/15/19 Status: Ordered buprenorphine-naloxone 8 mg-2 mg sublingual film 1 film, Sublingual, Daily, dissolve under the tongue, # 7 film, 0 Refills, Maintenance, 09/12/20 15:38:00 EDT, Film, [facility] #41491, Partial fill upon patient request if the prescriptionis for a schedule II opioid drug., 1 film Sublingua... Start Date: 09/12/20 Stop Date: 09/19/20 Status: Ordered cetirizine 10 mg oral tablet 1 tablet = 10 mg, By Mouth, Daily, For allergies., # 30 tablet, 2 Refills, Maintenance, 06/29/19 16:02:00 EDT, Tablet, [facility] #08211, 162.56, cm, 05/03/19 16:30:00 EST, Height, 72.3, kg, 09/26/18 16:01:00 EDT, Dry Weight Start Date: 06/29/19 Status: Ordered cloNIDine 0.1 mg oral tablet 0.1 mg, 1, tablet, By Mouth, 3 times a day, as needed for anxiety, # 25 tablet, Refills 0, Tot. Refills 0, Maintenance, 10/10/19 21:36:00 EDT, Route to Pharmacy Electronically, [facility] #44282, 162.56, cm, 10/09/19 10:36:00 EDT, Height, 72... [...] Gm, 5 Refills, Maintenance, 07/19/19 15:19:00 EDT, [place], [facility] #[id number], 2 sprays Nares, Both Daily in AM,x30 days, 162.56, cm, 05/03/19 16:30:00 EST, Height, 72.3, kg, 09/26/18 16:01:00 EDT, Dry... Start Date: 07/19/19 Stop Date: 01/15/20 Status: Ordered Flovent HFA 44 mcg/inh inhalation aerosol 1 puffs, Inhalation, 2 times a day, # 1 each, 5 Refills, Maintenance, 06/07/20 12:52:00 EDT, Aerosol, [facility] #[id number], 162.56, cm, 05/23/20 14:31:00 EDT, Height, 77, [...] 3 Refills, Maintenance, 03/02/20 19:48:00 EST, Tablet, [facility] #02362, 30 day supply preferred for present, 162.56, [...] 05/12/18 14:45:33 EDT, Route to Pharmacy Electronically, [id number], [facility] Start Date: 05/12/18 Status: Ordered LORazepam 0.5 mg oral tablet 0.5 tablet = 0.25 mg, By Mouth, 2 times a day, PRN as needed for anxiety, # 20 tablet, 1 Refills, Maintenance, 05/16/19 23:11:00 EDT, Tablet, [facility] #27775, 162.56, cm, 05/03/19 16:30:00 EST, Height, 72.3, kg, 09/26/18 16:01:00 EDT, Dry... Start Date: 05/16/19 Status: Ordered losartan 100 mg oral tablet 1 tablet, By Mouth, Daily, # 30 tablet, 5 Refills, Maintenance, 09/24/20 16:00:00 EDT, [facility] #69052, 162, cm, 09/19/20 15:59:00 EDT, Height, 82.1, kg, 06/08/20 17:25:00 EDT, Dry Weight Start Date: 09/24/20 Status: Ordered meclizine 25 mg oral tablet 1 tablet = 25 mg, By Mouth, 2 times a day, # 30 tablet, 1 Refills, Maintenance, 03/30/19 15:49:00 EST, Tablet, [facility] #25400, 162.56, cm, 03/08/19 14:34:00 EST, Height, 72.3, [...] each, 0 Refills, Maintenance, 06/04/20 16:46:00 EDT, [facility] #10961, OK to sub for any gallon prep, [...] 12:51:00 EDT, Aerosol, Route to Pharmacy Electronically, [id number], [facility] #16289, 1... Start Date: 06/07/20 Status: Ordered Senna 8.6 mg oral tablet 1-3 tablet, By Mouth, Daily, for constipation, # 90 tablet, Refills 5, Tot. Refills 5, Maintenance,03/26/20 15:25:00 EST, Route to Pharmacy Electronically, [facility] #[id number] Tablet, 162.56, cm, 03/21/20 15:01:00 EST, Height, 77, kg, ... Start Date: 03/26/20 Status: Ordered Spacer for inhalers Spacer for inhalers, See Instructions, # 1 each, Refills 0, Tot. Refills 0, Maintenance, Use with inhalers as directed. [place]., 06/07/19 15:07:00 EDT, Compound, 162.56, cm, 05/03/19 16:30:00 EST, Height, 72.3, kg, 09/26/18 16:01:00 EDT, Dry Weight Start Date: 06/07/19 Status: Ordered Sublocade 100 mg/0.5 mL subcutaneous solution, extended release = 100 mg, Subcutaneous Infusion, Every 28 days, [facility], # 1 each, 0 Refills, Maintenance, [...] 1 Refills, Maintenance, 03/02/20 19:47:00 EST, Tablet, [facility] #[id number], 162.56, cm, 01/04/20 9:40:00 ES... Start Date: 03/02/20 Status: Ordered Zofran 4 mg oral tablet 1 tablet = 4 mg, By Mouth, 2 times a day, PRN Nausea & Vomiting, # 10 tablet, 0 Refills, Maintenance, 09/19/20 18:37:00 EDT, Tablet, [facility] #[id number], 162, cm, 09/19/20 15:59:00 EDT, Height, 82.1, [...] 2016 Active Migraine(Confirmed) Active Opioid dependence(Confirmed) Active *[id number] Care Partn April Saavedra(Confirmed) Active Health care [...] tolerance, and QD need over. 2genotype 02/02: [id number] is only mutation detected 3death of sister, caring for mother w/ dementia 4repeat screening colonoscopy in 2020 Social History Social History Type Response Smoking Status Former smoker, quit more than 30 days ago entered on: 05/24/18 Sex
--- OUTSIDE RECORDS SUMMARY | 2022-12-13 21:32 | XMS_ITS | Continuity of Care Document ---
Author Name Unknown Organization [facility] Address Unknown Care Team Providers Care Instructional Specialist Name Role Phone Kahlil Sun MD Primary Care Physician Encounter [facility] [place] Date(s): 02/11/21 - 03/13/21 [facility] Attending Physician: Ankit Keller Admitting Physician: Ankit [...] Gi feliciano Influenza Virus Vaccine (oldterm) 8 9/23/20 Recor ded Influenza Virus Vaccine (oldterm) 12/22/07 [...] events reported or observed. 2Result Comment: #2, [facility] 3Result Comment: [facility] 4Result Comment: pharmacy 5Location History: [facility] 6Admin Note: vis 08/31/11 7Admin Note: ADMIN.BY RN 8Result Comment: [facility] 9Admin Note: Admin. by RN 10Admin Note: Admin. by RN 11Admin Note: Admin. 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 Start Date: 09/12/20 Status: Ordered acyclovir 400 mg oral tablet 1 tablet = 400 mg, By Mouth, 2 times a day, # 10 tablet, 5 Refills, Maintenance, 01/08/21 18:41:00 EST, [facility] #74009, 162, cm, 12/17/20 23:19:00 EDT, Height, 86.3, kg, 09/29/20 15:30:00 EDT, Dry Weight Start Date: 01/08/21 Stop Date: 02/07/21 Status: Ordered Albuterol (Eqv-ProAir HFA) 90 mcg/inh inhalation aerosol 2 puffs, Inhalation, Every 4 hours, PRN NEEDED FOR WHEEZING/SHORTNESS OF BREATH, USE WITH SPACERCHAMBER, # 8.5 Gm, 5 Refills, [facility] #29995, 16, INHALE 2 PUFFS INTO LUNGS EVERY 4 HOURS NEEDED FOR WHEEZING/SHORTNESS OF BREATH. USE... Start Date: 11/13/20 Status: Ordered albuterol 0.083% inhalation solution 3 mL = 2.5 mg, Inhalation, Every 6 hours, PRN Wheezing/Shortness of Breath, # 60 each, 0 Refills, Maintenance, 06/07/20 12:51:00 EDT, Solution, [facility] #[id number], 162.56, cm, 05/23/20 14:31:00 EDT, Height, 77, [...] tablet, 3 Refills, Maintenance, 03/02/20 19:50:00 EST, [facility] #11778, 1 tablet By Mouth Daily, 162.56, cm, [...] Refills, Maintenance, 06/29/19 16:02:00 EDT, Tablet, [facility] #45875, 162.56, cm, 05/03/19 16:30:00 EST, Height, 72.3, kg, 09/26/18 16:01:00 EDT, Dry Weight Start Date: 06/29/19 Status: Ordered cloNIDine 0.1 mg oral tablet 0.1 mg, 1, tablet, By Mouth, 3 times a day, as needed for anxiety, # 25 tablet, Refills 0, Tot. Refills 0, Maintenance, 10/10/19 21:36:00 EDT, Route to Pharmacy Electronically, [facility] #74127, 162.56, cm, 10/09/19 10:36:00 EDT, Height, 72... Start Date: 10/10/19 Status: Ordered Dulera 200 mcg-5 mcg/inh inhalation aerosol 2 puffs, Inhalation, 2 times a day, # 1 each, 3 Refills, Maintenance, 01/28/21 16:44:00 EST, Aerosol, [facility], STOP FLOVENT, 2 puffs Inhalation [...] Gm, 5 Refills, Maintenance, 07/19/19 15:19:00 EDT, [place], [facility] #51285, 2 sprays Nares, Both Daily in AM,x30 days, 162.56, cm, 05/03/19 16:30:00 EST, Height, 72.3, kg, 09/26/18 16:01:00 EDT, Dry... Start Date: 07/19/19 Stop Date: 01/15/20 Status: Ordered fluconazole 150 mg oral tablet 1 tablet = 150 mg, By Mouth, Once, # 1 tablet, 1 Refills, Soft Stop, 01/08/21 19:37:00 EST, Tablet,[facility] #24971, 162, cm, 12/17/20 23:19:00 EDT, Height, 86.3, [...] 01/28/21 16:28:00 EST, Route to Pharmacy Electronically, [facility], STOP HCTZ, 162, cm, 01/28/21 [...] # 1 each, Maintenance, covering for Sharri Nicgia Blood pressure monitor neededto monitor blood pressure [...] 05/12/18 14:45:33 EDT, Route to Pharmacy Electronically, [id number], [facility] Start Date: 05/12/18 Status: Ordered LORazepam 0.5 mg oral tablet 0.5 tablet = 0.25 mg, By Mouth, 2 times a day, PRN as needed for anxiety, # 20 tablet, 1 Refills, Maintenance, 05/16/19 23:11:00 EDT, Tablet, [facility] #43621, 162.56, cm, 05/03/19 16:30:00 EST, Height, 72.3, kg, 09/26/18 16:01:00 EDT, Dry... Start Date: 05/16/19 Status: Ordered losartan 100 mg oral tablet 1 tablet, By Mouth, Daily, # 30 tablet, 5 Refills, Maintenance, 09/24/20 16:00:00 EDT, [facility] #45288, 162, cm, 09/19/20 15:59:00 EDT, Height, 82.1, kg, 06/08/20 17:25:00 EDT, Dry Weight Start Date: 09/24/20 Status: Ordered meclizine 25 mg oral tablet 1 tablet = 25 mg, By Mouth, 2 times a day, # 30 tablet, 1 Refills, Maintenance, 03/30/19 15:49:00 EST, Tablet, [facility] #58117, 162.56, cm, 03/08/19 14:34:00 EST, Height, 72.3, kg, 09/26/18 16:01:00 EDT, Dry Weight Start Date: 03/30/19 Status: Ordered Narcan 4 mg/0.1 mL nasal spray = 4 mg, Inhalation, Once, # 2 each, 1 Refills, Soft Stop, 10/29/20 12:23:00 EDT, [facility] #[id number], Partial fill upon patient request if the [...] each, 0 Refills, Maintenance, 06/04/20 16:46:00 EDT, [facility] #81788, OK to sub for any gallon prep, used as directed, 162.56, cm, 05/23/20 14:31:00 EDT, Height, 77, kg, 03/21/20 15:04:00 EST, Dry We... Start Date: 06/04/20 Status: Ordered predniSONE 50 mg oral tablet 1 tablet = 50 mg, By Mouth, Daily, # 7 tablet, 0 Refills, Maintenance, 01/28/21 16:37:00 EST, Tablet, [facility], Partial fill upon patient request if the prescription is for a schedule II opioid drug., 162, cm, 01/28/21 16:02:00 E... Start Date: 01/28/21 Stop Date: 02/04/21 Status: Ordered Senna 8.6 mg oral tablet 1-3 tablet, By Mouth, Daily, for constipation, # 90 tablet, Refills 5, Tot. Refills 5, Maintenance,03/26/20 15:25:00 EST, Route to Pharmacy Electronically, [facility] #32354 Tablet, 162.56, cm, 03/21/20 15:01:00 EST, Height, [...] 4 Refills, Maintenance, 01/28/21 16:29:00 EST, Tablet, [facility], STOP HCTZ, 162, cm, 01/28/21 [...] under the tongue increase in dose 01/22/2021 [id number], # 60 film, 0 Refills, Maintenance, 01/22/21 13:49:00 EST, Film, [facility] #21294, Partial fill upon patient request if the prescription is for a... Start Date: 01/22/21 Status: Ordered SUMAtriptan 25 mg oral tablet 1 tablet = 25 mg, By Mouth, Daily, PRN as needed for migraine headache, may repeat dose after 2 hours up to a maximum of 2, # 6 tablet, 1 Refills, Maintenance, 03/02/20 19:47:00 EST, Tablet, [facility] #21143, 162.56, cm, 01/04/20 9:40:00 ES... Start Date: 03/02/20 Status: Ordered Zofran 4 mg oral tablet 1 tablet = 4 mg, By Mouth, 2 times a day, PRN Nausea & Vomiting, # 10 tablet, 0 Refills, Maintenance, 12/01/20 20:26:00 EDT, Tablet, [facility] #68732, 162, cm, 10/29/20 17:08:00 EDT, Height, 86.3, [...] Obese class II(Confirmed) Active Opioid dependence(Confirmed) Active *[id number] Care Partn er April Saavedra(Confirmed) Active Health [...] tolerance, and QD need over. 2genotype 02/02: [id number] is only mutation detected 3death of sister, caring for mother w/ dementia 4repeat screening colonoscopy in 2020 Social History Social History Type Response Smoking Status Former smoker, quit more than 30 days ago entered on: 10/29/20 Sex
--- OUTSIDE RECORDS SUMMARY | 2022-12-13 21:32 | XMS_ITS | Continuity of Care Document ---
Author Name Unknown Organization [facility] Address Unknown Care Team Providers Care Handcrew Foreman Name Role Phone Kahlil Sun MD Primary Care Physician Encounter [facility] Date(s): 04/24/21 - 05/24/21 [facility] Allergies, Adverse Reactions, Alerts Substance Reaction [...] events reported or observed. 2Result Comment: #2, [facility] 3Result Comment: [facility] 4Result Comment: pharmacy 5Location History: [facility] 6Admin Note: vis 08/31/11 7Admin Note: ADMIN.BY RN 8[facility] Comment[facility] 9Admin Note: Admin. by RN 10Admin Note: Admin. by RN 11Admin Note: Admin. 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 Start Date: 09/12/20 Status: Ordered acyclovir 400 mg oral tablet 1 tablet = 400 mg, By Mouth, 2 times a day, # 10 tablet, 5 Refills, Maintenance, 01/08/21 18:41:00 EST, [email or web address] #22919, 162, cm, 12/17/20 23:19:00 EDT, Height, 86.3, kg, 09/29/20 15:30:00 EDT, Dry Weight Start Date: 01/08/21 Stop Date: 02/07/21 Status: Ordered Albuterol (Eqv-ProAir HFA) 90 mcg/inh inhalation aerosol 2 puffs, Inhalation, Every 4 hours, PRN NEEDED FOR WHEEZING/SHORTNESS OF BREATH, USE WITH SPACERCHAMBER, # 8.5 Gm, 5 Refills, [email or web address] #54186, 16, INHALE 2 PUFFS INTO LUNGS EVERY 4 HOURS NEEDED FOR WHEEZING/SHORTNESS OF BREATH. USE... Start Date: 11/13/20 Status: Ordered albuterol 0.083% inhalation solution 3 mL = 2.5 mg, Inhalation, Every 6 hours, PRN Wheezing/Shortness of Breath, # 60 each, 0 Refills, Maintenance, 06/07/20 12:51:00 EDT, Solution, [facility] #[id number], 162.56, cm, 05/23/20 14:31:00 EDT, Height, 77, [...] tablet, 3 Refills, Maintenance, 03/02/20 19:50:00 EST, [facility] #[id number], 1 tablet By Mouth Daily, 162.56, cm, [...] 2 Refills, Maintenance, 06/29/19 16:02:00 EDT, Tablet, [email or web address] #33262, 162.56, cm, 05/03/19 16:30:00 EST, Height, 72.3, kg, 09/26/18 16:01:00 EDT, Dry Weight Start Date: 06/29/19 Status: Ordered cloNIDine 0.1 mg oral tablet 0.1 mg, 1, tablet, By Mouth, 3 times a day, as needed for anxiety, # 25 tablet, Refills 0, Tot. Refills 0, Maintenance, 10/10/19 21:36:00 EDT, Route to Pharmacy Electronically, [facility] #[id number], 162.56, cm, 10/09/19 10:36:00 EDT, Height, 72... Start Date: 10/10/19 Status: Ordered Dulera 200 mcg-5 mcg/inh inhalation aerosol 2 puffs, Inhalation, 2 times a day, # 1 each, 3 Refills, Maintenance, 01/28/21 16:44:00 EST, Aerosol, [facility], STOP FLOVENT, 2 puffs Inhalation 2 times a day,x30 days, 162, cm,01/28/21 16:02:00 EST, Height, 86.3, kg, 09/29/20 1... Start Date: 01/28/21 Stop Date: 05/28/21 Status: Ordered escitalopram 5 mg oral tablet 1 tablet = 5 mg, By Mouth, Daily, # 30 tablet, 11 Refills, Maintenance, 05/07/21 9:48:00 EST, Tablet, [email or web address] #85741, Partial fill upon patient request if the prescription is for a schedule II opioid drug., 162, cm, 05/07/21 8:46:00 EST,... Start Date: 05/07/21 Status: Ordered Flonase 50 mcg/inh nasal spray 2 sprays, Nares, Both, Daily in AM, # 16 Gm, 5 Refills, Maintenance, 07/19/19 15:19:00 EDT, [place], [email or web address] #24788, 2 sprays Nares, Both Daily in AM,x30 days, 162.56, cm, 05/03/19 16:30:00 EST, Height, 72.3, kg, 09/26/18 16:01:00 EDT, Dry... Start Date: 07/19/19 Stop Date: 01/15/20 Status: Ordered fluconazole 150 mg oral tablet 1 tablet = 150 mg, By Mouth, Once, # 1 tablet, 1 Refills, Soft Stop, 01/08/21 19:37:00 EST, Tablet,[email or web address] #28420, 162, cm, 12/17/20 23:19:00 EDT, Height, 86.3, [...] 04/24/21 12:37:00 EST, Route to Pharmacy Electronically, [facility] #[id number], STOP HCTZ, 162, cm, 03/24/21 18:41:00 EST, [...] 1 each, Maintenance, covering for [facility] Blood pressure monitor neededto monitor blood [...] 05/12/18 14:45:33 EDT, Route to Pharmacy Electronically, [id number], [facility] Start Date: 05/12/18 Status: Ordered LORazepam 0.5 mg oral tablet 0.5 tablet = 0.25 mg, By Mouth, 2 times a day, PRN as needed for anxiety, # 20 tablet, 1 Refills, Maintenance, 05/16/19 23:11:00 EDT, Tablet, [email or web address] #41607, 162.56, cm, 05/03/19 16:30:00 EST, Height, 72.3, kg, 09/26/18 16:01:00 EDT, Dry... Start Date: 05/16/19 Status: Ordered losartan 100 mg oral tablet 1 tablet, By Mouth, Daily, # 30 tablet, 5 Refills, Maintenance, 09/24/20 16:00:00 EDT, [facility] #[id number], 162, cm, 09/19/20 15:59:00 EDT, Height, 82.1, kg, 06/08/20 17:25:00 EDT, Dry Weight Start Date: 09/24/20 Status: Ordered meclizine 25 mg oral tablet 1 tablet = 25 mg, By Mouth, 2 times a day, # 30 tablet, 1 Refills, Maintenance, 03/30/19 15:49:00 EST, Tablet, [facility] #[id number], 162.56, cm, 03/08/19 14:34:00 EST, Height, 72.3, kg, 09/26/18 16:01:00 EDT, Dry Weight Start Date: 03/30/19 Status: Ordered multivitamin with iron Multiple Vitamins with Iron oral tablet 1 tablet, By Mouth, Daily, # 30 tablet, 11 Refills, Maintenance, 05/07/21 9:45:00 EST, Tablet, [facility] #04356, Partial fill upon patient request if the prescription is for a schedule II opioid drug., 1 tablet By Mouth Daily, 162, cm, 0... Start Date: 05/07/21 Status: Ordered Narcan 4 mg/0.1 mL nasal spray = 4 mg, Inhalation, Once, # 2 each, 1 Refills, Soft Stop, 10/29/20 12:23:00 EDT, [facility] #[id number], Partial fill upon patient request if the [...] each, 0 Refills, Maintenance, 06/04/20 16:46:00 EDT, [facility] #[id number], OK to sub for any gallon prep, used as directed, 162.56, cm, 05/23/20 14:31:00 EDT, Height, 77, kg, 03/21/20 15:04:00 EST, Dry We... Start Date: 06/04/20 Status: Ordered predniSONE 50 mg oral tablet 1 tablet = 50 mg, By Mouth, Daily, # 7 tablet, 0 Refills, Maintenance, 01/28/21 16:37:00 EST, Tablet, [facility], Partial fill upon patient request if the prescription is for a schedule II opioid drug., 162, cm, 01/28/21 16:02:00 E... Start Date: 01/28/21 Stop Date: 02/04/21 Status: Ordered Senna 8.6 mg oral tablet 1-3 tablet, By Mouth, Daily, for constipation, # 90 tablet, Refills 5, Tot. Refills 5, Maintenance,03/26/20 15:25:00 EST, Route to Pharmacy Electronically, [facility] #[id number] Tablet, 162.56, cm, 03/21/20 15:01:00 EST, Height, [...] 5 Refills, Maintenance, 04/24/21 12:36:00 EST, Tablet, [email or web address] #53813, STOP HCTZ, 162, cm, 03/24/21 18:41:00 EST, [...] under the tongue increase in dose Marva [id number] covering Dino [id number] due on/after 05/02/2021, # 35 film, 0 Refills, Maintenance, 05/23/21 13:46:00 EDT,Film, [facility], 2.5 film... Start Date: 05/23/21 Status: Ordered SUMAtriptan 25 mg oral tablet 1 tablet = 25 mg, By Mouth, Daily, PRN as needed for migraine headache, may repeat dose after 2 hours up to a maximum of 2, # 6 tablet, 1 Refills, Maintenance, 03/02/20 19:47:00 EST, Tablet, [email or web address] #98993, 162.56, cm, 01/04/20 9:40:00 ES... Start Date: 03/02/20 Status: Ordered Zofran 4 mg oral tablet 1 tablet = 4 mg, By Mouth, 2 times a day, PRN Nausea & Vomiting, # 10 tablet, 0 Refills, Maintenance, 05/01/21 1:24:00 EST, Tablet, [email or web address] #78901, 162, cm, 03/24/21 18:41:00 EST, Height, 86.3, kg, 09/29/20 15:30:00 EDT, Dry Weight Start Date: 05/01/21 Status: Ordered zolpidem 5 mg oral tablet 0.5 tablet = 2.5 mg, By Mouth, Daily at bedtime, PRN sleep, # 5 tablet, 0 Refills, Acute 05/29/21 9:47:00 EDT, 05/07/21 9:46:00 EST, Tablet, [email or web address] #92129, Partial fill upon patient request if the [...] Obese class I(Confirmed) Active Opioid dependence(Confirmed) Active *[id number] Care Partn Parilleela LopezSaavedra(Confirmed) Active Health care maintenance(Confirmed) Active Portal [...] tolerance, and QD need over. 2genotype 02/02: [id number] is only mutation detected 3death of sister, caring for mother w/ dementia 4repeat screening colonoscopy in 2020 Social History Social History Type Response Smoking Status Former smoker, quit more than 30 days ago entered on: 10/29/20 Sex
--- OUTSIDE RECORDS SUMMARY | 2022-12-13 21:32 | XMS_ITS | Continuity of Care Document ---
Author Name Unknown Organization [facility] Address [address] [place] [address]- Care Team Providers Care Automotive Sales Executive Name Role Phone Kahlil Sun MD Primary Care Physician Encounter [id number] Date(s): 07/10/22 - 08/12/22 [facility] [address]- Attending Physician: Vida Goldsmith NP Admitting Physician: [...] reported or observed. 2Result Comment: #2, [facility] 3Result Comment: [facility] 4Result Comment: pharmacy 5Location History: [place] 6Admin Note: vis 08/31/11 7Admin Note: ADMIN.BY RN 8Result Comment: [facility] 9Admin Note: Admin. by [...] tablet, 5 Refills, Maintenance, 01/08/21 18:41:00 EST, [facility] #[id number], 162, cm, 12/17/20 23:19:00 EDT, Height, 86.3, kg, 09/29/20 15:30:00 EDT, Dry Weight Start Date: 01/08/21 Stop Date: 02/07/21 Status: Ordered Albuterol (Eqv-ProAir HFA) 90 mcg/inh inhalation aerosol 2 puffs, Inhalation, Every 4 hours, PRN NEEDED FOR WHEEZING/SHORTNESS OF BREATH, USE WITH SPACERCHAMBER, # 8.5 Gm, 5 Refills, [facility] #[id number], 16, INHALE 2 PUFFS INTO LUNGS EVERY 4 HOURS NEEDED FOR WHEEZING/SHORTNESS OF BREATH. USE... Start Date: 11/13/20 Status: Ordered albuterol 0.083% inhalation solution 3 mL = 2.5 mg, Inhalation, Every 6 hours, PRN Wheezing/Shortness of Breath, # 60 each, 0 Refills, Maintenance, 06/07/20 12:51:00 EDT, Solution, [facility] #[id number], 162.56, cm, 05/23/20 14:31:00 EDT, Height, 77, [...] tablet, 12 Refills, Maintenance, 04/17/22 7:54:00 EST, [facility] #[id number], 1 tablet By Mouth Daily, 162.56, cm, 04/16/22 16:00:00 EST, Height, 87.6, kg, 10/24/21 8:00:00 EDT, Dry Weight Start Date: 04/17/22 Status: Ordered Biktarvy oral tablet See Instructions, TAKE 1 TABLET BY MOUTH DAILY, # 90 tablet, 0 Refills, Maintenance, 07/15/22 13:50:00 EDT, [facility] #[id number], 90, TAKE 1 TABLET BY MOUTH DAILY, [...] 1 Refills, Maintenance, 07/10/21 18:35:00 EDT, Tablet, [facility] #31535, Partial fill upon patient request if the prescription is for a schedule II opioid drug., 162, cm, 06/19/21 15:40:00 EDT... Start Date: 07/10/21 Status: Ordered cloNIDine 0.1 mg oral tablet 1, tablet, By Mouth, 3 times a day, PRN, # 90 tablet, Refills 11, Tot. Refills 11, Maintenance, NEEDED FOR ANXIETY, 08/12/22 15:06:00 EDT, Route to Pharmacy Electronically, [facility] #[id number], 162.56, cm, 07/30/22 10:55:00 EDT, Height, 79.... Start Date: 08/12/22 Status: Ordered Colace Clear 50 mg oral capsule 1 capsule = 50 mg, By Mouth, 2 times a day, PRN as needed for constipation, # 60 capsule, 0 Refills, Maintenance, 12/05/21 15:09:00 EDT, [facility] #95177, Partial fill upon patient requestif the prescription is for a schedule II opioid nhi... Start Date: 12/05/21 Status: Ordered diclofenac 1% topical gel = 2 Gm, Topically, 4 times a day, PRN for pain, not to exceed: 10 gm/day, # 100 Gm, 1 Refills, Maintenance, 05/29/21 16:52:00 EDT, Gel, [facility], Partial fill upon patient request if the prescription is for a schedule II opioid... Start Date: 05/29/21 Status: Ordered Dulera 200 mcg-5 mcg/inh inhalation aerosol 2 puffs, Inhalation, 2 times a day, # 1 each, 3 Refills, Maintenance, 01/28/21 16:44:00 EST, Aerosol, [facility], STOP FLOVENT, 2 puffs Inhalation 2 times a day,x30 days, 162, cm,01/28/21 16:02:00 EST, Height, 86.3, kg, 09/29/20 1... Start Date: 01/28/21 Stop Date: 05/28/21 Status: Ordered escitalopram 20 mg oral tablet 1 tablet = 20 mg, By Mouth, Daily, # 90 tablet, 0 Refills, Maintenance, 07/30/22 12:03:00 EDT, Tablet, [facility] #[id number], Partial fill upon patient request if the prescription is for a schedule II opioid drug., 162.56, cm, 07/30/22 10:55:00... Start Date: 07/30/22 Status: Ordered ferrous fumarate 324 mg oral tablet 1 tablet = 324 mg, By Mouth, Every other day, # 45 tablet, 0 Refills, Maintenance, 07/31/22 11:19:00 EDT, Tablet, [facility] #[id number], Partial fill upon patient request if the [...] 5 Refills, Maintenance, 07/19/19 15:19:00 EDT, [place], [facility] #[id number], 2 sprays Nares, Both Daily in AM,x30 [...] Replace Required Details, Route to Pharmacy Electronically, [facility] #[id number], 162.56, cm,... Start Date: 11/27/21 Status: Ordered [...] Instructions, # 1 each, Maintenance, covering for [facility] Blood pressure monitor neededto monitor blood [...] 2 Refills, Maintenance, 07/30/22 12:17:00 EDT, Syrup, [facility] #[id number], 30 mL By Mouth 4 times a day, 162.56, cm, 07/30/22 10:55:00 EDT,Height, 79.54, kg, 07/30/22 10:55:00 EDT, Dry Weight Start Date: 07/30/22 Status: Ordered losartan 100 mg oral tablet 1 tablet, By Mouth, Daily, # 30 tablet, 5 Refills, [facility] #05716, 162, cm, 10/09/21 16:19:00 EDT, Height, 86.3, kg, 09/29/20 15:30:00 EDT, Dry Weight Start Date: 10/20/21 Status: Ordered meclizine 25 mg oral tablet 1 tablet = 25 mg, By Mouth, 2 times a day, # 30 tablet, 1 Refills, Maintenance, 07/10/21 17:25:00 EDT, Tablet, [facility] #81704, 162, cm, 06/19/21 15:40:00 EDT, Height, 86.3, kg, 09/29/20 15:30:00 EDT, Dry Weight Start Date: 07/10/21 Status: Ordered multivitamin with iron Multiple Vitamins with Iron oral tablet 1 tablet, By Mouth, Daily, # 30 tablet, 11 Refills, Maintenance, 04/17/22 7:51:00 EST, Tablet, [facility] #[id number], 1 tablet By Mouth Daily, 162.56, cm, 04/16/22 16:00:00 EST, Height, 87.6, kg, 10/24/21 8:00:00 EDT, Dry Weight Start Date: 04/17/22 Status: Ordered Narcan 4 mg/0.1 mL nasal spray = 4 mg, Inhalation, Once, # 2 each, 1 Refills, Soft Stop, 10/29/20 12:23:00 EDT, [facility] #[id number], Partial fill upon patient request if the prescription is for a schedule II opioid drug., 162, cm, 09/29/20 15:30:00 EDT, Height, 86.3, kg, 08... Start Date: 10/29/20 Status: Ordered ondansetron 4 mg oral tablet 1 tablet = 4 mg, By Mouth, Daily, PRN Nausea & Vomiting, # 10 tablet, 3 Refills, Maintenance, 06/25/22 17:28:00 EDT, [facility] #[id number], 162.56, cm, 06/25/22 16:16:00 EDT, Height, 87.6, [...] each, 0 Refills, Maintenance, 06/04/20 16:46:00 EDT, [facility] #54931, OK to sub for any gallon prep, used as directed, 162.56, cm, 05/23/20 14:31:00 EDT, Height, 77, kg, 03/21/20 15:04:00 EST, Dry We... Start Date: 06/04/20 Status: Ordered Senna 8.6 mg oral tablet 1-3 tablet, By Mouth, Daily, for constipation, # 90 tablet, Refills 5, Tot. Refills 5, Maintenance,03/26/20 15:25:00 EST, Route to Pharmacy Electronically, [facility] #[id number] Tablet, 162.56, cm, 03/21/20 15:01:00 EST, Height, [...] tablet, 5 Refills, Maintenance, 04/17/22 7:53:00 EST, [facility] #[id number], 162.56, cm, 04/16/22 16:00:00 EST, Height, 87.6, kg, 10/24/21 8:00:00 EDT, Dry Weight Start Date: 04/17/22 Status: Ordered Suboxone 8 mg-2 mg Sublingual Film 2 film, Sublingual, Daily, [id number] Randolph dissolve under the tongue may fill less due 08/13/2022,# 14 film, 0 Refills, Maintenance, 08/07/22 19:57:00 EDT, Film, [facility], 2 film Sublingual Daily,x7 days,Instr:[id number] Cathy... Start Date: 08/07/22 Stop Date: 08/14/22 Status: Ordered SUMAtriptan 25 mg oral tablet 1 tablet = 25 mg, By Mouth, Daily, PRN as needed for migraine headache, may repeat dose after 2 hours up to a maximum of 2, # 6 tablet, 1 Refills, Maintenance, 03/02/20 19:47:00 EST, Tablet, [facility] #[id number], 162.56, cm, 01/04/20 9:40:00 ES... Start Date: 03/02/20 Status: Ordered zolpidem 5 mg oral tablet 1 tablet = 5 mg, By Mouth, Daily at bedtime, PRN as needed for sleep, # 30 tablet, 1 Refills, Maintenance, 07/27/22 10:36:00 EDT, [facility] #[id number], 162.56, cm, 06/25/22 16:16:00 EDT, Height, 87.6, [...] disorder Confirmed Active Opioid dependence Confirmed Active *[id number] Interpreter April Saavedra Confirmed Active Health care maintenance [...] tolerance, and QD need over. 2genotype 02/02: [id number] is only mutation detected 3death of sister, caring for mother w/ dementia 4repeat screening colonoscopy in 2020 Social History Social History Type Response Smoking Status Former smoker, quit more than 30 days ago entered on: 12/05/21 Sex Patient Care team information Care Team Personnel Name: Kahlil Sun MD Position: [facility] Physician - Primary Care Member Role: PCP Address: Address: [address] [place] [address]- Name: Sharri Prince Position: [facility] PCO Associate Professional Member Role: Lifetime Consulting Provider Care Team Related Persons Name: SHANITA MENDOZA Address: home [address] [place] [address] Name: SHANITA MENDOZA BRITTNY Address: home [address] Name: ULICES PEARSON Name: ULICES ESPARZA Address: [place] [address] Name: LALA LI
--- OUTSIDE RECORDS SUMMARY | 2022-12-13 21:32 | XMS_ITS | Continuity of Care Document ---
Author Name Unknown Organization [facility] Address [address] [place] [address]- Care Team Providers Care Scientist Name Role Phone Dino PEREZ, Kahlil Barrera Primary Care Physician [phone] Encounter [facility] Date(s): 02/28/20 - 03/29/20 [facility] De Annabelle [address] [place] [id number]- Allergies, Adverse Reactions, Alerts Substance Reaction Severity [...] (Td) 03/10/01 Given 1Result Comment: [facility] 2Result Comment: pharmacy 3Location History: [...] 5 Refills, Maintenance, 01/26/20 16:20:00 EST, [facility], 162.56, cm, 10/09/19 10:36:00 EDT, Height, 72.3, kg, 09/26/18 16:01:00 EDT, Dry Weight Start Date: 01/26/20 Stop Date: 02/25/20 Status: Ordered albuterol 0.083% inhalation solution 3 mL = 2.5 mg, Inhalation, Every 6 hours, PRN Wheezing/Shortness of Breath, # 60 each, 0 Refills, Maintenance, 06/07/19 14:59:00 EDT, Solution, [facility] #67004, 162.56, cm, 05/03/19 16:30:00 EST, Height, 72.3, kg, 09/26/18 16:01:00 EDT, . Start Date: 06/07/19 Status: Ordered Biktarvy oral tablet 1 tablet, By Mouth, Daily, # 90 tablet, 3 Refills, Maintenance, 03/02/20 19:50:00 EST, [facility] #26213, 1 tablet By Mouth Daily, 162.56, cm, 01/04/20 9:40:00 EST, Height, 72.3, kg, 09/26/18 16:01:00 EDT, Dry Weight Start Date: 03/02/20 Status: Ordered Blood Pressure Meter Blood Pressure Meter, See Instructions, # 1 each, Refills 0, Tot. Refills 0, Maintenance, Use for, 07/11/18 16:11:47 EDT, Compound Start Date: 07/11/18 Status: Ordered buprenorphine-naloxone 2 mg-0.5 mg sublingual film 1 film, Sublingual, Daily, [place] [id number], # 14 film, 0 Refills, Maintenance, 02/08/20 16:47:00 EST, [facility] #[id number], Partial fill on request., 1 film Sublingual Daily,Instr:[place] [id number], 162.56, cm, 01/04/20 9:40:00 EST, Height, 7... Start Date: 02/08/20 Status: Ordered buprenorphine-naloxone 2 mg-0.5 mg sublingual film 0.25 each, Sublingual, Daily, Dino [id number], # 8 film, 0 Refills, Maintenance, 12/15/19 19:00:00 EDT, [facility] #[id number], Partial fill on request., 0.25 each Sublingual Daily,Instr:Dino [id number], 162.56, cm, 10/09/19 10:36:00 EDT, Hei... Start Date: 12/15/19 Status: Ordered cetirizine 10 mg oral tablet 1 tablet = 10 mg, By Mouth, Daily, For allergies., # 30 tablet, 2 Refills, Maintenance, 06/29/19 16:02:00 EDT, Tablet, [facility] #[id number], 162.56, cm, 05/03/19 16:30:00 EST, Height, 72.3, kg, 09/26/18 16:01:00 EDT, Dry Weight Start Date: 06/29/19 Status: Ordered cloNIDine 0.1 mg oral tablet 0.1 mg, 1, tablet, By Mouth, 3 times a day, as needed for anxiety, # 25 tablet, Refills 0, Tot. Refills 0, Maintenance, 10/10/19 21:36:00 EDT, Route to Pharmacy Electronically, [facility] #[id number], 162.56, cm, 10/09/19 10:36:00 EDT, Height, 72... [...] Gm, 5 Refills, Maintenance, 07/19/19 15:19:00 EDT, [place], [facility] #[id number], 2 sprays Nares, Both Daily in AM,x30 days, 162.56, cm, 05/03/19 16:30:00 EST, Height, 72.3, kg, 09/26/18 16:01:00 EDT, Dry... Start Date: 07/19/19 Stop Date: 01/15/20 Status: Ordered Flovent HFA 44 mcg/inh inhalation aerosol 1 puffs, Inhalation, 2 times a day, # 1 each, 5 Refills, Maintenance, 06/29/19 16:26:00 EDT, Aerosol, [facility] #[id number], 162.56, cm, 05/03/19 16:30:00 EST, Height, 72.3, [...] 1 each, Maintenance, covering for [facility] Blood pressure monitor neededto monitor blood [...] 3 Refills, Maintenance, 03/02/20 19:48:00 EST, Tablet, [facility] #97838, 30 day supply preferred for present, 162.56, [...] 05/12/18 14:45:33 EDT, Route to Pharmacy Electronically, [id number], [facility] Start Date: 05/12/18 Status: Ordered LORazepam 0.5 mg oral tablet 0.5 tablet = 0.25 mg, By Mouth, 2 times a day, PRN as needed for anxiety, # 20 tablet, 1 Refills, Maintenance, 05/16/19 23:11:00 EDT, Tablet, [facility] #84616, 162.56, cm, 05/03/19 16:30:00 EST, Height, 72.3, kg, 09/26/18 16:01:00 EDT, Dry... Start Date: 05/16/19 Status: Ordered losartan 100 mg oral tablet 1 tablet = 100 mg, By Mouth, Daily, # 30 tablet, 11 Refills, Maintenance, 06/29/19 15:59:00 EDT, Tablet, [facility] #59744, 162.56, cm, 05/03/19 16:30:00 EST, Height, 72.3, kg, 09/26/18 16:01:00 EDT, Dry Weight Start Date: 06/29/19 Status: Ordered meclizine 25 mg oral tablet 1 tablet = 25 mg, By Mouth, 2 times a day, # 30 tablet, 1 Refills, Maintenance, 03/30/19 15:49:00 EST, Tablet, [facility] #25767, 162.56, cm, 03/08/19 14:34:00 EST, Height, 72.3, [...] 15:00:00 EDT, Aerosol, Route to Pharmacy Electronically, [id number], [facility] #[id number], 1... Start Date: 06/07/19 Status: Ordered Senna 8.6 mg oral tablet 1-3 tablet, By Mouth, Daily, for constipation, # 90 tablet, Refills 5, Tot. Refills 5, Maintenance,03/26/20 15:25:00 EST, Route to Pharmacy Electronically, [facility] #[id number] Tablet, 162.56, cm, 03/21/20 15:01:00 EST, Height, 77, kg, 2... Start Date: 03/26/20 Status: Ordered Spacer for inhalers Spacer for inhalers, See Instructions, # 1 each, Refills 0, Tot. Refills 0, Maintenance, Use with inhalers as directed. Irish., 06/07/19 15:07:00 EDT, Compound, 162.56, cm, 05/03/19 16:30:00 EST, Height, 72.3, kg, 09/26/18 16:01:00 EDT, Dry Weight Start Date: 06/07/19 Status: Ordered SUMAtriptan 25 mg oral tablet 1 tablet = 25 mg, By Mouth, Daily, PRN as needed for migraine headache, may repeat dose after 2 hours up to a maximum of 2, # 6 tablet, 1 Refills, Maintenance, 03/02/20 19:47:00 EST, Tablet, [facility] #52109, 162.56, cm, 01/04/20 9:40:00 ES... Start Date: 03/02/20 Status: Ordered Zofran 4 mg oral tablet 1 tablet = 4 mg, By Mouth, 2 times a day, PRN Nausea & Vomiting, # 10 tablet, 0 Refills, Maintenance, 03/02/20 19:47:00 EST, Tablet, [facility] #[id number], 162.56, cm, 01/04/20 9:40:00 EST,Height, 72.3, kg, [...] 2016 Active Migraine(Confirmed) Active Opioid dependence(Confirmed) Active *[id number] Care Partn April Saavedra(Confirmed) Active Health care [...] tolerance, and QD need over. 2genotype 02/02: [id number] is only mutation detected 3death of sister, caring for mother w/ dementia 4repeat screening colonoscopy in 2020 Social History Social History Type Response Smoking Status Former smoker, quit more than 30 days ago entered on: 05/24/18 Sex
--- OUTSIDE RECORDS SUMMARY | 2022-12-13 21:32 | XMS_ITS | Continuity of Care Document ---
Author Name Unknown Organization [facility] ter Address [address] [place] [id number]- Care Team Providers Care Early Interventionist Name Role Phone Kahlil Sun MD Primary Care Physician Encounter [facility] Date(s): 05/23/21 - 05/23/[address] [address]- Encounter Diagnosis Lumbar strain(Final) - 05/23/21 Discharge Disposition: A-D/C Home Attending Physician: Amrita Dean MD Admitting Physician: Amrita Dean MD Referring Physician: Not on Staff, Referring [...] events reported or observed. 2Result Comment: [facility] 3Result Comment: [facility] 4Result Comment: pharmacy 5Location History: [facility] 6Admin Note: vis 08/31/11 7Admin Note: ADMIN.BY RN 8Result Comment: [facility] 9Admin Note: Admin. by RN 10Admin Note: Admin. by RN 11Admin Note: Admin. by RN 12Admin Note: vis 06/15/15 13Admin Note: dose #6 (3rd in 2nd series) 14Admin Note: dose #5 15Admin Note: #3 16Admin Note: LITO [employer]ur 17Admin Note: ADMIN BEN, TELETYPIST 18Admin Note: BY LEXI Agudelo 19Admin Note: [...] 1 Refills, Maintenance, 09/12/20 16:18:00EDT, CR Tablet, [facility] #[id number], Partial fill upon patient request if the prescription is for a schedule II opioid drug., 162, cm, 09/12/20... Start Date: 09/12/20 Status: Ordered acyclovir 400 mg oral tablet 1 tablet = 400 mg, By Mouth, 2 times a day, # 10 tablet, 5 Refills, Maintenance, 01/08/21 18:41:00 EST, [facility] #[id number], 162, cm, 12/17/20 23:19:00 EDT, Height, 86.3, kg, 09/29/20 15:30:00 EDT, Dry Weight Start Date: 01/08/21 Stop Date: 02/07/21 Status: Ordered Albuterol (Eqv-ProAir HFA) 90 mcg/inh inhalation aerosol 2 puffs, Inhalation, Every 4 hours, PRN NEEDED FOR WHEEZING/SHORTNESS OF BREATH, USE WITH SPACERCHAMBER, # 8.5 Gm, 5 Refills, [facility] #[id number], 16, INHALE 2 PUFFS INTO LUNGS EVERY 4 HOURS NEEDED FOR WHEEZING/SHORTNESS OF BREATH. USE... Start Date: 11/13/20 Status: Ordered albuterol 0.083% inhalation solution 3 mL = 2.5 mg, Inhalation, Every 6 hours, PRN Wheezing/Shortness of Breath, # 60 each, 0 Refills, Maintenance, 06/07/20 12:51:00 EDT, Solution, [facility] #[id number], 162.56, cm, 05/23/20 14:31:00 EDT, Height, 77, [...] tablet, 3 Refills, Maintenance, 03/02/20 19:50:00 EST, [facility] #[id number], 1 tablet By Mouth Daily, 162.56, cm, [...] 2 Refills, Maintenance, 06/29/19 16:02:00 EDT, Tablet, [facility] #14516, 162.56, cm, 05/03/19 16:30:00 EST, Height, 72.3, kg, 09/26/18 16:01:00 EDT, Dry Weight Start Date: 06/29/19 Status: Ordered cloNIDine 0.1 mg oral tablet 0.1 mg, 1, tablet, By Mouth, 3 times a day, as needed for anxiety, # 25 tablet, Refills 0, Tot. Refills 0, Maintenance, 10/10/19 21:36:00 EDT, Route to Pharmacy Electronically, [facility] #59162, 162.56, cm, 10/09/19 10:36:00 EDT, Height, 72... Start Date: 10/10/19 Status: Ordered Dulera 200 mcg-5 mcg/inh inhalation aerosol 2 puffs, Inhalation, 2 times a day, # 1 each, 3 Refills, Maintenance, 01/28/21 16:44:00 EST, Aerosol, [facility], STOP FLOVENT, 2 puffs Inhalation 2 times a day,x30 days, 162, cm,01/28/21 16:02:00 EST, Height, 86.3, kg, 09/29/20 1... Start Date: 01/28/21 Stop Date: 05/28/21 Status: Ordered escitalopram 5 mg oral tablet 1 tablet = 5 mg, By Mouth, Daily, # 30 tablet, 11 Refills, Maintenance, 05/07/21 9:48:00 EST, Tablet, [facility] #[id number], Partial fill upon patient request if the prescription is for a schedule II opioid drug., 162, cm, 05/07/21 8:46:00 EST,... Start Date: 05/07/21 Status: Ordered Flonase 50 mcg/inh nasal spray 2 sprays, Nares, Both, Daily in AM, # 16 Gm, 5 Refills, Maintenance, 07/19/19 15:19:00 EDT, [place], [facility] #[id number], 2 sprays Nares, Both Daily in AM,x30 days, 162.56, cm, 05/03/19 16:30:00 EST, Height, 72.3, kg, 09/26/18 16:01:00 EDT, Dry... Start Date: 07/19/19 Stop Date: 01/15/20 Status: Ordered fluconazole 150 mg oral tablet 1 tablet = 150 mg, By Mouth, Once, # 1 tablet, 1 Refills, Soft Stop, 01/08/21 19:37:00 EST, Tablet,[facility] #67624, 162, cm, 12/17/20 23:19:00 EDT, Height, 86.3, [...] 04/24/21 12:37:00 EST, Route to Pharmacy Electronically, [facility] #[id number], STOP HCTZ, 162, cm, 03/24/21 18:41:00 EST, [facility]... Start Date: 04/24/21 Stop Date: 10/21/21 Status: [...] # 1 each, Maintenance, covering for Sharri Arnaud Blood pressure monitor neededto monitor blood pressure [...] 05/12/18 14:45:33 EDT, Route to Pharmacy Electronically, [id number], [facility] Start Date: 05/12/18 Status: Ordered LORazepam 0.5 mg oral tablet 0.5 tablet = 0.25 mg, By Mouth, 2 times a day, PRN as needed for anxiety, # 20 tablet, 1 Refills, Maintenance, 05/16/19 23:11:00 EDT, Tablet, [facility] #[id number], 162.56, cm, 05/03/19 16:30:00 EST, Height, 72.3, kg, 09/26/18 16:01:00 EDT, Dry... Start Date: 05/16/19 Status: Ordered losartan 100 mg oral tablet 1 tablet, By Mouth, Daily, # 30 tablet, 5 Refills, Maintenance, 09/24/20 16:00:00 EDT, [facility] #[id number], 162, cm, 09/19/20 15:59:00 EDT, Height, 82.1, kg, 06/08/20 17:25:00 EDT, Dry Weight Start Date: 09/24/20 Status: Ordered meclizine 25 mg oral tablet 1 tablet = 25 mg, By Mouth, 2 times a day, # 30 tablet, 1 Refills, Maintenance, 03/30/19 15:49:00 EST, Tablet, [facility] #59903, 162.56, cm, 03/08/19 14:34:00 EST, Height, 72.3, kg, 09/26/18 16:01:00 EDT, Dry Weight Start Date: 03/30/19 Status: Ordered multivitamin with iron Multiple Vitamins with Iron oral tablet 1 tablet, By Mouth, Daily, # 30 tablet, 11 Refills, Maintenance, 05/07/21 9:45:00 EST, Tablet, [facility] #[id number], Partial fill upon patient request if the prescription is for a schedule II opioid drug., 1 tablet By Mouth Daily, 162, cm, 030... Start Date: 05/07/21 Status: Ordered Narcan 4 mg/0.1 mL nasal spray = 4 mg, Inhalation, Once, # 2 each, 1 Refills, Soft Stop, 10/29/20 12:23:00 EDT, [facility] #[id number], Partial fill upon patient request if the [...] each, 0 Refills, Maintenance, 06/04/20 16:46:00 EDT, [facility] #68890, OK to sub for any gallon prep, used as directed, 162.56, cm, 05/23/20 14:31:00 EDT, Height, 77, kg, 03/21/20 15:04:00 EST, Dry We... Start Date: 06/04/20 Status: Ordered predniSONE 50 mg oral tablet 1 tablet = 50 mg, By Mouth, Daily, # 7 tablet, 0 Refills, Maintenance, 01/28/21 16:37:00 EST, Tablet, [facility], Partial fill upon patient request if the prescription is for a schedule II opioid drug., 162, cm, 01/28/21 16:02:00 E... Start Date: 01/28/21 Stop Date: 02/04/21 Status: Ordered Senna 8.6 mg oral tablet 1-3 tablet, By Mouth, Daily, for constipation, # 90 tablet, Refills 5, Tot. Refills 5, Maintenance,03/26/20 15:25:00 EST, Route to Pharmacy Electronically, [facility] #[id number] Tablet, 162.56, cm, 03/21/20 15:01:00 EST, Height, [...] 5 Refills, Maintenance, 04/24/21 12:36:00 EST, Tablet, [facility] #[id number], STOP HCTZ, 162, cm, 03/24/21 18:41:00 EST, [...] dissolve under the tongue increase in dose Scavron [id number] covering Dino [id number] due on/after 05/02/2021, # 35 film, 0 Refills, Maintenance, 05/23/21 13:46:00 EDT,Film, [facility], 2.5 film... Start Date: 05/23/21 Status: Ordered SUMAtriptan 25 mg oral tablet 1 tablet = 25 mg, By Mouth, Daily, PRN as needed for migraine headache, may repeat dose after 2 hours up to a maximum of 2, # 6 tablet, 1 Refills, Maintenance, 03/02/20 19:47:00 EST, Tablet, [facility] #67715, 162.56, cm, 01/04/20 9:40:00 ES... Start Date: 03/02/20 Status: Ordered Zofran 4 mg oral tablet 1 tablet = 4 mg, By Mouth, 2 times a day, PRN Nausea & Vomiting, # 10 tablet, 0 Refills, Maintenance, 05/01/21 1:24:00 EST, Tablet, [facility] #32826, 162, cm, 03/24/21 18:41:00 EST, Height, 86.3, kg, 09/29/20 15:30:00 EDT, Dry Weight Start Date: 05/01/21 Status: Ordered zolpidem 5 mg oral tablet 0.5 tablet = 2.5 mg, By Mouth, Daily at bedtime, PRN sleep, # 5 tablet, 0 Refills, Acute 05/29/21 9:47:00 EDT, 05/07/21 9:46:00 EST, Tablet, [facility] #[id number], Partial fill upon patient request if the [...] Obese class I(Confirmed) Active Opioid dependence(Confirmed) Active *[id number] Care Partn er April Saavedra(Confirmed) Active Health [...] tolerance, and QD need over. 2genotype 02/02: [id number] is only mutation detected 3death of sister, caring for mother w/ dementia 4repeat screening colonoscopy in 2020 Results Radiology Reports * Exam Date Time Procedure Performing Provider Status 05/23/21 11:02 AM Tibia/Fibula 2 Views Left Ce [place]; Auth (Verified) Notes: (Tibia/Fibula 2 Views Left) Reason For Exam: Pain RESULT: Tibia/Fibula 2 Views Left Tibia/Fibula 2 Views Left Hx of Present Illness: slipped down 8 stairs. Pain to lower left back; Reason: Pain; Clinical Question(s): Fracture COMPARISON: None. FINDINGS: No fractures or bone lesions. Visualized joints are normal. Unremarkable overlying soft tissues. IMPRESSION: No acute osseous abnormality. WSN: [id number] Ordering Physician: Hernando Avila Dictated By: Suri Underwood MD Dictated Date/Time: 05/23/21 12:40 p Reviewed By: Suri Underwood MD Signed By: Suri Underwood MD Signed Date/Time: 05/23/21 12:40 pm Transcribed By: CSOrlando Transcribed Date/Time: 05/23/21 12:38 pm Vital Signs Most recent to oldest [Reference Range]: 1 2 Oxygen Saturation [94-100 %] 97 % (05/23/21 10:33 AM) Pulse Rate [55-90 bpm] 72 bpm (05/23/21 10:33 AM) Blood Pressure [90-138/55-84 mm Hg] 110/ 54mm Hg (05/23/21 10:33 AM) 110/54mm Hg (05/23/21 10:32 AM) Respiratory Rate [16-30 br/min] 18 br/mi n (05/23/21 10:33 AM) Temperature [96.8-100.4 DegF] 98.7 DegF (05/23/21 10:33 AM) Mode of Delivery (Oxygen) Room air (05/23/21 10:33 AM) Blood pressure sites Arm, right (05/23/21 10:33 AM) Temperature Route Oral (05/23/21 10:33 AM) Social History Social History Type Response Smoking Status Former smoker, quit more than 30 days ago entered on: 10/29/20 Sex
--- OUTSIDE RECORDS SUMMARY | 2022-12-13 21:33 | XMS_ITS | Continuity of Care Document ---
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 Start Date: 06/07/19 Status: Ordered Bactrim 400 mg-80 mg oral tablet 1 tablet, By Mouth, 2 times a day, # 14 tablet, 0 Refills, Acute 12/09/19 15:46:00 EDT, 06/13/19 15:46:00 EDT, Tablet, [facility] #[id number], 1 tablet By Mouth 2 times a day, 162.56, cm, 05/03/19 16:30:00 EST, Height, 72.3, kg, 09/26/18 16:01:00... Start Date: 06/13/19 Stop Date: 12/09/19 Status: Ordered Biktarvy oral tablet 1 tablet, By Mouth, Daily, # 30 tablet, 11 Refills, Maintenance, 06/29/19 16:26:00 EDT, [facility] #[id number], 1 tablet By Mouth Daily, 162.56, cm, 05/03/19 16:30:00 EST, Height, 72.3, kg, 09/26/18 16:01:00 EDT, Dry Weight Start Date: 06/29/19 Status: Ordered Blood Pressure Meter Blood Pressure Meter, See Instructions, # 1 each, Refills 0, Tot. Refills 0, Maintenance, Use for, 07/11/18 16:11:47 EDT, Compound Start Date: 07/11/18 Status: Ordered buprenorphine-naloxone 2 mg-0.5 mg sublingual film 0.25 each, Sublingual, Daily, Dino [id number], # 4 film, 0 Refills, Maintenance, 10/10/19 21:39:00 EDT, [facility] #[id number], Partial fill on request., 0.25 each Sublingual Daily,Instr:Dino [id number], 162.56, cm, 10/09/19 10:36:00 EDT, Hei... Start Date: 10/10/19 Status: Ordered cetirizine 10 mg oral tablet 1 tablet = 10 mg, By Mouth, Daily, For allergies., # 30 tablet, 2 Refills, Maintenance, 06/29/19 16:02:00 EDT, Tablet, [facility] #[id number], 162.56, cm, 05/03/19 16:30:00 EST, Height, 72.3, kg, 09/26/18 16:01:00 EDT, Dry Weight Start Date: 06/29/19 Status: Ordered cloNIDine 0.1 mg oral tablet 0.1 mg, 1, tablet, By Mouth, 3 times a day, as needed for anxiety, # 25 tablet, Refills 0, Tot. Refills 0, Maintenance, 10/10/19 21:36:00 EDT, Route to Pharmacy Electronically, [facility] #[id number], 162.56, cm, 10/09/19 10:36:00 EDT, Height, 72... [...] Gm, 5 Refills, Maintenance, 07/19/19 15:19:00 EDT, [place], [facility] #[id number], 2 sprays Nares, Both Daily in AM,x30 days, 162.56, cm, 05/03/19 16:30:00 EST, Height, 72.3, kg, 09/26/18 16:01:00 EDT, Dry... Start Date: 07/19/19 Stop Date: 01/15/20 Status: Ordered Flovent HFA 44 mcg/inh inhalation aerosol 1 puffs, Inhalation, 2 times a day, # 1 each, 5 Refills, Maintenance, 06/29/19 16:26:00 EDT, Aerosol, [facility] #87748, 162.56, cm, 05/03/19 16:30:00 EST, Height, 72.3, [...] 5 Refills, Maintenance, 09/11/19 10:29:00 EDT, Tablet, [facility] #[id number], 30 day supply preferred for present, 162.56, [...] 05/12/18 14:45:33 EDT, Route to Pharmacy Electronically, [id number], [facility] Start Date: 05/12/18 Status: Ordered LORazepam 0.5 mg oral tablet 0.5 tablet = 0.25 mg, By Mouth, 2 times a day, PRN as needed for anxiety, # 20 tablet, 1 Refills, Maintenance, 05/16/19 23:11:00 EDT, Tablet, [facility] #61649, 162.56, cm, 05/03/19 16:30:00 EST, Height, 72.3, kg, 09/26/18 16:01:00 EDT, Dry... Start Date: 05/16/19 Status: Ordered losartan 100 mg oral tablet 1 tablet = 100 mg, By Mouth, Daily, # 30 tablet, 11 Refills, Maintenance, 06/29/19 15:59:00 EDT, Tablet, [facility] #[id number], 162.56, cm, 05/03/19 16:30:00 EST, Height, 72.3, kg, 09/26/18 16:01:00 EDT, Dry Weight Start Date: 06/29/19 Status: Ordered meclizine 25 mg oral tablet 1 tablet = 25 mg, By Mouth, 2 times a day, # 30 tablet, 1 Refills, Maintenance, 03/30/19 15:49:00 EST, Tablet, [facility] #[id number], 162.56, cm, 03/08/19 14:34:00 EST, Height, 72.3, kg, 09/26/18 16:01:00 EDT, Dry Weight Start Date: 03/30/19 Status: Ordered metroNIDAZOLE 500 mg oral tablet 1 tablet = 500 mg, By Mouth, Every 12 hours, for 7 days, # 14 tablet, 0 Refills, Acute 10/16/19 12:03:00 EDT, 10/09/19 12:03:00 EDT, Tablet, [facility] #[id number], 162.56, cm, 10/09/19 10:36:00EDT, Height, 72.3, kg, 09/26/18 16:01:00 EDT, Dry W... Start Date: 10/09/19 Stop Date: 10/16/19 Status: Ordered pantoprazole 20 mg oral delayed [...] 15:00:00 EDT, Aerosol, Route to Pharmacy Electronically, [id number], [facility] #[id number], 1... Start Date: 06/07/19 Status: Ordered Senna 8.6 mg oral tablet 1-3 tablet, By Mouth, Daily, for constipation, # 90 tablet, Refills 5, Tot. Refills 5, Maintenance,02/17/18 15:12:45 EST, Route to Pharmacy Electronically, [id number], [facility] Tablet Start Date: 02/17/18 Status: Ordered Spacer for inhalers Spacer for inhalers, See Instructions, # 1 each, Refills 0, Tot. Refills 0, Maintenance, Use with inhalers as directed. Thai., 06/07/19 15:07:00 EDT, Compound, 162.56, cm, 05/03/19 16:30:00 EST, Height, 72.3, kg, 09/26/18 16:01:00 EDT, Dry Weight Start Date: 06/07/19 Status: Ordered SUMAtriptan 25 mg oral tablet 1 tablet = 25 mg, By Mouth, Daily, PRN as needed for migraine headache, may repeat dose after 2 hours up to a maximum of 2, # 6 tablet, 1 Refills, Maintenance, 04/18/19 13:31:00 EST, Tablet, [facility] #[id number], 162.56, cm, 03/08/19 14:34:00 E... Start Date: 04/18/19 Status: Ordered Zofran 4 mg oral tablet 1 tablet = 4 mg, By Mouth, 2 times a day, PRN Nausea & Vomiting, # 20 tablet, 0 Refills, Maintenance, 08/24/19 22:39:00 EDT, Tablet, [facility] #[id number], 162.56, cm, 05/03/19 16:30:00 EST, Height, 72.3, kg, 09/26/18 16:01:00 EDT, Dry Weight Start Date: 08/24/19 Status: Ordered zolpidem 5 mg oral tablet 0 Refills, Maintenance, 01/22/18 21:33:47 EST Start Date: 01/22/18 Status: Ordered Problem List Condition Effective Dates Status Health Status Inform ant Abdominal bloating(Confirmed) Active Acne(Confirmed) Active *[id number] Care Part ner April Saavedra(Confirmed) Active AIDS (acquired [...] tolerance, and QD need over. 2genotype 02/02: [id number] is only mutation detected 3death of sister, caring for mother w/ dementia 4repeat screening colonoscopy in 2020 Social History Social History Type Response Smoking Status Former smoker, quit more than 30 days ago entered on: 05/24/18 Sex
--- OUTSIDE RECORDS SUMMARY | 2022-12-13 21:33 | XMS_ITS | Continuity of Care Document ---
Author Name Unknown Organization [facility] Address [address] [place] [address]- Care Team Providers Care Exhibition Specialist Name Role Phone Kahlil Sun MD Primary Care Physician Encounter [facility] ACCT R [id number] Date(s): 05/13/22 - 06/13/22 [facility]/[place] [address]- Attending Physician: Luis Manuel Aguirre MD Admitting Physician: Luis Manuel Aguirre MD Allergies, Adverse Reactions, Alerts Substance Reaction [...] or observed. 2Result Comment: #2, [facility] 3Result Comment: [facility] 4Result Comment: pharmacy 5Location History: [facility] 6Admin Note: vis 08/31/11 7Admin Note: ADMIN.BY RN 8Result Comment: [facility] 9Admin Note: Admin. by RN 10Admin Note: Admin. by RN 11Admin Note: Admin. 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 Start Date: 12/05/21 Status: Ordered acyclovir 400 mg oral tablet 1 tablet = 400 mg, By Mouth, 2 times a day, # 10 tablet, 5 Refills, Maintenance, 01/08/21 18:41:00 EST, [facility] #[id number], 162, cm, 12/17/20 23:19:00 EDT, Height, 86.3, kg, 09/29/20 15:30:00 EDT, Dry Weight Start Date: 01/08/21 Stop Date: 02/07/21 Status: Ordered Albuterol (Eqv-ProAir HFA) 90 mcg/inh inhalation aerosol 2 puffs, Inhalation, Every 4 hours, PRN NEEDED FOR WHEEZING/SHORTNESS OF BREATH, USE WITH SPACERCHAMBER, # 8.5 Gm, 5 Refills, [facility] #[id number], 16, INHALE 2 PUFFS INTO LUNGS EVERY 4 HOURS NEEDED FOR WHEEZING/SHORTNESS OF BREATH. USE... Start Date: 11/13/20 Status: Ordered albuterol 0.083% inhalation solution 3 mL = 2.5 mg, Inhalation, Every 6 hours, PRN Wheezing/Shortness of Breath, # 60 each, 0 Refills, Maintenance, 06/07/20 12:51:00 EDT, Solution, [facility] #[id number], 162.56, cm, 05/23/20 14:31:00 EDT, Height, 77, [...] 01/04/22 19:11:00 EST, Route to Pharmacy Electronically, [facility] #[id number], 162.56, cm, 11/0... Start Date: 01/04/22 Status: Ordered Biktarvy oral tablet 1 tablet, By Mouth, Daily, # 30 tablet, 12 Refills, Maintenance, 04/17/22 7:54:00 EST, [facility] #[id number], 1 tablet By Mouth Daily, 162.56, cm, [...] 1 Refills, Maintenance, 07/10/21 18:35:00 EDT, Tablet, [facility] #[id number], Partial fill upon patient request if the prescription is for a schedule II opioid drug., 162, cm, 06/19/21 15:40:00 EDT... Start Date: 07/10/21 Status: Ordered cloNIDine 0.1 mg oral tablet 1, tablet, By Mouth, 3 times a day, PRN, # 270 tablet, Refills 0, Tot. Refills 0, Maintenance, NEEDED FOR ANXIETY, 05/13/22 16:45:00 EDT, Route to Pharmacy Electronically, [facility] #[id number], 162.56, cm, 05/07/22 12:32:00 EST, Height, 87.6... Start Date: 05/13/22 Status: Ordered Colace Clear 50 mg oral capsule 1 capsule = 50 mg, By Mouth, 2 times a day, PRN as needed for constipation, # 60 capsule, 0 Refills, Maintenance, 12/05/21 15:09:00 EDT, [facility] #[id number], Partial fill upon patient requestif the prescription is for a schedule II opioid nhi... Start Date: 12/05/21 Status: Ordered diclofenac 1% topical gel = 2 Gm, Topically, 4 times a day, PRN for pain, not to exceed: 10 gm/day, # 100 Gm, 1 Refills, Maintenance, 05/29/21 16:52:00 EDT, Gel, [facility], Partial fill upon patient request if the prescription is for a schedule II opioid... Start Date: 05/29/21 Status: Ordered Dulera 200 mcg-5 mcg/inh inhalation aerosol 2 puffs, Inhalation, 2 times a day, # 1 each, 3 Refills, Maintenance, 01/28/21 16:44:00 EST, Aerosol, [facility], STOP FLOVENT, 2 puffs Inhalation 2 times a day,x30 days, 162, cm,01/28/21 16:02:00 EST, Height, 86.3, kg, 09/29/20 1... Start Date: 01/28/21 Stop Date: 05/28/21 Status: Ordered escitalopram 10 mg oral tablet 1 tablet = 10 mg, By Mouth, Daily, # 30 tablet, 11 Refills, Maintenance, 04/16/22 16:59:00 EST, Tablet, [facility] #[id number], Partial fill upon patient request if the [...] Gm, 5 Refills, Maintenance, 07/19/19 15:19:00 EDT, [place], [facility] #[id number], 2 sprays Nares, Both Daily in AM,x30 [...] Replace Required Details, Route to Pharmacy Electronically, [facility] #[id number], 162.56, cm,... Start Date: 11/27/21 Status: Ordered [...] Replace Required Details, Route to Pharmacy Electronically, [facility] . Start Date: 04/16/22 Status: Ordered Glucose [...] # 1 each, Maintenance[facility] Blood pressure monitor neededto monitor blood pressure DX: hypertension, 07/11/18 17:28:42 EDT, Compound Start Date: 07/11/18 Status: Ordered humidifier humidifier, See Instructions, # 1 each, Refills 0, Tot. Refills 0, Maintenance, use as directed forchronic sinusitis J32, 04/09/17 14:21:37 EST, Compound Start Date: 04/09/17 Status: Ordered losartan 100 mg oral tablet 1 tablet, By Mouth, Daily, # 30 tablet, 5 Refills, [facility] #[id number], 162, cm, 10/09/21 16:19:00 EDT, Height, 86.3, kg, 09/29/20 15:30:00 EDT, Dry Weight Start Date: 10/20/21 Status: Ordered meclizine 25 mg oral tablet 1 tablet = 25 mg, By Mouth, 2 times a day, # 30 tablet, 1 Refills, Maintenance, 07/10/21 17:25:00 EDT, Tablet, [facility] #[id number], 162, cm, 06/19/21 15:40:00 EDT, Height, 86.3, kg, 09/29/20 15:30:00 EDT, Dry Weight Start Date: 07/10/21 Status: Ordered multivitamin with iron Multiple Vitamins with Iron oral tablet 1 tablet, By Mouth, Daily, # 30 tablet, 11 Refills, Maintenance, 04/17/22 7:51:00 EST, Tablet, [facility] #[id number], 1 tablet By Mouth Daily, 162.56, cm, 04/16/22 16:00:00 EST, Height, 87.6, kg, 10/24/21 8:00:00 EDT, Dry Weight Start Date: 04/17/22 Status: Ordered Narcan 4 mg/0.1 mL nasal spray = 4 mg, Inhalation, Once, # 2 each, 1 Refills, Soft Stop, 10/29/20 12:23:00 EDT, [facility] #[id number], Partial fill upon patient request if the prescription is for a schedule II opioid drug., 162, cm, 09/29/20 15:30:00 EDT, Height, 86.3, kg, 08... Start Date: 10/29/20 Status: Ordered ondansetron 4 mg oral tablet 1 tablet = 4 mg, By Mouth, Daily, PRN Nausea & Vomiting, # 10 tablet, 3 Refills, Maintenance, 04/16/22 17:07:00 EST, [facility] #[id number], 162.56, cm, 04/16/22 16:00:00 EST, Height, 87.6, [...] each, 0 Refills, Maintenance, 06/04/20 16:46:00 EDT, [facility] #[id number], OK to sub for any gallon prep, used as directed, 162.56, cm, 05/23/20 14:31:00 EDT, Height, 77, kg, 03/21/20 15:04:00 EST, Dry We... Start Date: 06/04/20 Status: Ordered Senna 8.6 mg oral tablet 1-3 tablet, By Mouth, Daily, for constipation, # 90 tablet, Refills 5, Tot. Refills 5, Maintenance,03/26/20 15:25:00 EST, Route to Pharmacy Electronically, [facility] #[id number] Tablet, 162.56, cm, 03/21/20 15:01:00 EST, Height, [...] tablet, 5 Refills, Maintenance, 04/17/22 7:53:00 EST, [facility] #[id number], 162.56, cm, 04/16/22 16:00:00 EST, Height, 87.6, kg, 10/24/21 8:00:00 EDT, Dry Weight Start Date: 04/17/22 Status: Ordered Suboxone 8 mg-2 mg Sublingual Film 2.5 film, Sublingual, Daily, dissolve under the tongue increase in dose [facility] [place] [place] [id number] [facility]/22/2021, # 35 film, 0 Refills, Maintenance, 08/22/21 9:27:00 EDT, Film,[facility], 2.5 film Subli... Start Date: 08/22/21 Stop Date: 09/05/21 Status: Ordered Suboxone 8 mg-2 mg Sublingual Film 2 film, Sublingual, Daily, dissolve under the tongue may fill less due 05/27/2022, # 14 film, 0 Refills, Maintenance, 05/28/22 8:17:00 EDT, Film, [facility], 2 film Sublingual Daily,x7 days,Instr:dissolve under the tongue; june fi... Start Date: 05/28/22 Stop Date: 06/04/22 Status: Ordered SUMAtriptan 25 mg oral tablet 1 tablet = 25 mg, By Mouth, Daily, PRN as needed for migraine headache, may repeat dose after 2 hours up to a maximum of 2, # 6 tablet, 1 Refills, Maintenance, 03/02/20 19:47:00 EST, Tablet, [facility] #[id number], 162.56, cm, 01/04/20 9:40:00 ES... Start Date: 03/02/20 Status: Ordered zolpidem 5 mg oral tablet 1 tablet = 5 mg, By Mouth, Daily at bedtime, PRN as needed for sleep, # 30 tablet, 1 Refills, Maintenance, 05/16/22 22:14:00 EDT, [facility] #[id number], 162.56, cm, 05/07/22 12:32:00 EST, Height, 87.6, [...] disorder Confirmed Active Opioid dependence Confirmed Active *[id number] Patient Biller April Saavedra Confirmed Active Health care maintenance [...] tolerance, and QD need over. 2genotype 02/02: AL830C is only mutation detected 3death of sister, caring for mother w/ dementia 4repeat screening colonoscopy in 2020 Social History Social History Type Response Smoking Status Former smoker, quit more than 30 days ago entered on: 12/05/21 Sex Patient Care team information Care Team Personnel Name: Kahlil Sun MD Position: [facility] Primary Care Physician Member Role: PCP Address: Address: [address] [place] [address]- Name: Sharri Prince Position: [facility] PCO Associate Professional Member Role: Lifetime Consulting Provider Care Team Related Persons Name: MENDOZA, SHANITA Address: [address] [place] [address] Name: SHANITA MENDOZA Address: home [address] Name: ULICES PEARSON Name: ULICES ESPARZA Address: [place] [address] Name: LALA LI
--- OUTSIDE RECORDS SUMMARY | 2022-12-13 21:33 | XMS_ITS | Continuity of Care Document ---
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 Job Lithographer Name Role Phone Kahlil Sun MD Primary Care Physician [phone] Encounter [facility] [place] Date(s): 05/09/19 - 05/19/19 [facility] [address] [address]- [facility] Attending Physician: Admtr, [id number] Admitting Physician: [...] sublingual film 0.25 each, Sublingual, Daily, Dino [id number], # 4 film, 0 Refills, Maintenance, 05/16/19 23:15:00 EDT, [facility] #[id number], Partial fill on request., 0.25 each Sublingual Daily,Instr:Dino [id number], 162.56, cm, 05/03/19 16:30:00 EST, Hei... Start Date: 05/16/19 Status: Ordered Flonase 50 mcg/inh nasal spray 1 sprays, Nares, Both, 2 times a day, # 1 each, 0 Refills, Maintenance, 05/24/18 16:00:06 EDT, [place], 1 sprays Nares, Both 2 times a [...] # 1 each, Maintenance, covering for [facility] Blood pressure monitor neededto monitor [...] 2 Refills, Maintenance, 05/29/19 21:12:00 EDT, Tablet, [facility] #[id number], 30 day supply preferred for present, 162.56, cm, 05/03/19 16:30:00 EST, Height, 72.3, kg, 09/26/18 16:01:00 EDT, Dry... Start Date: 05/29/19 Status: Ordered hydrochlorothiazide 12.5 mg oral tablet 1 tablet = 12.5 mg, By Mouth, Daily, for 30 days, # 30 tablet, 0 Refills, Hard Stop 05/29/19 21:12:00 EDT, 04/29/19 21:12:00 EST, Tablet, [facility] #[id number], 162.56, cm, 04/24/19 16:09:00 EST, Height, 72.3, kg, 09/26/18 16:01:00 EDT, Dry Weight Start Date: 04/29/19 Stop Date: 05/29/19 Status: Ordered Lexapro 5 mg [...] 05/12/18 14:45:33 EDT, Route to Pharmacy Electronically, [id number], [facility] Start Date: 05/12/18 Status: Ordered LORazepam 0.5 mg oral tablet 0.5 tablet = 0.25 mg, By Mouth, 2 times a day, PRN as needed for anxiety, # 20 tablet, 1 Refills, Maintenance, 05/16/19 23:11:00 EDT, Tablet, [facility] #[id number], 162.56, cm, 05/03/19 16:30:00 EST, Height, 72.3, kg, 09/26/18 16:01:00 EDT, Dry... Start Date: 05/16/19 Status: Ordered losartan 50 mg oral tablet 1 tablet = 50 mg, By Mouth, Daily, # 30 tablet, 5 Refills, Maintenance, 04/28/19 0:32:00 EST, Tablet, [facility] #[id number], 162.56, cm, 04/24/19 16:09:00 EST, Height, 72.3, kg, 09/26/18 16:01:00 EDT, Dry Weight Start Date: 04/28/19 Status: Ordered meclizine 25 mg oral tablet 1 tablet = 25 mg, By Mouth, 2 times a day, # 30 tablet, 1 Refills, Maintenance, 03/30/19 15:49:00 EST, Tablet, [facility] #[id number], 162.56, cm, 03/08/19 14:34:00 EST, Height, 72.3, [...] 12/05/15 14:17:14, Aerosol, Route to Pharmacy Electronically, [id number], [facility] [id number] Start Date: 12/05/15 Status: Ordered Senna 8.6 mg oral tablet 1-3 tablet, By Mouth, Daily, for constipation, # 90 tablet, Refills 5, Tot. Refills 5, Maintenance,02/17/18 15:12:45 EST, Route to Pharmacy Electronically, [id number], [facility] Tablet Start Date: 02/17/18 Status: Ordered SUMAtriptan 25 mg oral tablet 1 tablet = 25 mg, By Mouth, Daily, PRN as needed for migraine headache, may repeat dose after 2 hours up to a maximum of 2, # 6 tablet, 1 Refills, Maintenance, 04/18/19 13:31:00 EST, Tablet, [facility] #[id number], 162.56, cm, 03/08/19 14:34:00 E... Start Date: [...] 2016 Active Migraine(Confirmed) Active Opioid dependence(Confirmed) Active *[id number]-[facility] Partn renee Saavedra(Confirmed) Active Health care maintenance(Confirmed) [...] tolerance, and QD need over. 2genotype 02/02: [id number] is only mutation detected 3death of sister, caring for mother w/ dementia 4repeat screening colonoscopy in 2020 Social History Social History Type Response Smoking Status Former smoker, quit more than 30 days ago entered on: 05/24/18 Sex
--- OUTSIDE RECORDS SUMMARY | 2022-12-13 21:33 | XMS_ITS | Continuity of Care Document ---
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 2Result Comment: #2, [facility] 3Result Comment: [facility] 4Result Comment: pharmacy 5Location History: [facility] [...] tablet, 5 Refills, Maintenance, 01/08/21 18:41:00 EST, [facility] #[id number], 162, cm, 12/17/20 23:19:00 EDT, Height, 86.3, kg, 09/29/20 15:30:00 EDT, Dry Weight Start Date: 01/08/21 Stop Date: 02/07/21 Status: Ordered Albuterol (Eqv-ProAir HFA) 90 mcg/inh inhalation aerosol 2 puffs, Inhalation, Every 4 hours, PRN NEEDED FOR WHEEZING/SHORTNESS OF BREATH, USE WITH SPACERCHAMBER, # 8.5 Gm, 5 Refills, [facility] #[id number], 16, INHALE 2 PUFFS INTO LUNGS EVERY 4 HOURS NEEDED FOR WHEEZING/SHORTNESS OF BREATH. USE... Start Date: 11/13/20 Status: Ordered albuterol 0.083% inhalation solution 3 mL = 2.5 mg, Inhalation, Every 6 hours, PRN Wheezing/Shortness of Breath, # 60 each, 0 Refills, Maintenance, 06/07/20 12:51:00 EDT, Solution, [facility] #[id number], 162.56, cm, 05/23/20 14:31:00 EDT, Height, 77, [...] 2 Refills, Maintenance, 08/30/22 11:09:00 EDT, Gel, [facility] #51289, 1 applic... Start Date: 08/30/22 Status: Ordered Biktarvy oral tablet 1 tablet, By Mouth, Daily, # 30 tablet, 12 Refills, Maintenance, 04/17/22 7:54:00 EST, [facility] #41900, 1 tablet By Mouth Daily, 162.56, cm, 04/16/22 16:00:00 EST, Height, 87.6, kg, 10/24/21 8:00:00 EDT, Dry Weight Start Date: 04/17/22 Status: Ordered Biktarvy oral tablet See Instructions, TAKE 1 TABLET BY MOUTH DAILY, # 90 tablet, 0 Refills, Maintenance, 07/15/22 13:50:00 EDT, [facility] #[id number], 90, TAKE 1 TABLET BY MOUTH DAILY, [...] 1 Refills, Maintenance, 07/10/21 18:35:00 EDT, Tablet, [facility] #51965, Partial fill upon patient request if the prescription is for a schedule II opioid drug., 162, cm, 06/19/21 15:40:00 EDT... Start Date: 07/10/21 Status: Ordered cloNIDine 0.1 mg oral tablet 1, tablet, By Mouth, 3 times a day, PRN, # 90 tablet, Refills 11, Tot. Refills 11, Maintenance, NEEDED FOR ANXIETY, 08/12/22 15:06:00 EDT, Route to Pharmacy Electronically, [facility] #[id number], 162.56, cm, 07/30/22 10:55:00 EDT, Height, 79.... Start Date: 08/12/22 Status: Ordered Colace Clear 50 mg oral capsule 1 capsule = 50 mg, By Mouth, 2 times a day, PRN as needed for constipation, # 60 capsule, 0 Refills, Maintenance, 12/05/21 15:09:00 EDT, [facility] #60201, Partial fill upon patient requestif the prescription is for a schedule II opioid nhi... Start Date: 12/05/21 Status: Ordered diclofenac 1% topical gel = 2 Gm, Topically, 4 times a day, PRN for pain, not to exceed: 10 gm/day, # 100 Gm, 1 Refills, Maintenance, 05/29/21 16:52:00 EDT, Gel, [facility], Partial fill upon patient request if the prescription is for a schedule II opioid... Start Date: 05/29/21 Status: Ordered Dulera 200 mcg-5 mcg/inh inhalation aerosol 2 puffs, Inhalation, 2 times a day, # 1 each, 3 Refills, Maintenance, 01/28/21 16:44:00 EST, Aerosol, [facility], STOP FLOVENT, 2 puffs Inhalation 2 times a day,x30 days, 162, cm,01/28/21 16:02:00 EST, Height, 86.3, kg, 09/29/20 1... Start Date: 01/28/21 Stop Date: 05/28/21 Status: Ordered escitalopram 20 mg oral tablet 1 tablet = 20 mg, By Mouth, Daily, # 90 tablet, 0 Refills, Maintenance, 07/30/22 12:03:00 EDT, Tablet, [facility] #[id number], Partial fill upon patient request if the prescription is for a schedule II opioid drug., 162.56, cm, 07/30/22 10:55:00... Start Date: 07/30/22 Status: Ordered ferrous fumarate 324 mg oral tablet 1 tablet = 324 mg, By Mouth, Every other day, # 45 tablet, 0 Refills, Maintenance, 07/31/22 11:19:00 EDT, Tablet, [facility] #63726, Partial fill upon patient request if the [...] Gm, 5 Refills, Maintenance, 07/19/19 15:19:00 EDT, [place], [facility] #29924, 2 sprays Nares, Both Daily in AM,x30 [...] 08/30/22 13:09:00 EDT, Route to Pharmacy Electronically, [facility] #[id number], 162.56, cm, 08/20/22 13:54:00 EDT, Height, 79.54, [...] 2 Refills, Maintenance, 07/30/22 12:17:00 EDT, Syrup, [facility] #[id number], 30 mL By Mouth 4 times a day, 162.56, cm, 07/30/22 10:55:00 EDT,Height, 79.54, kg, 07/30/22 10:55:00 EDT, Dry Weight Start Date: 07/30/22 Status: Ordered losartan 100 mg oral tablet 1 tablet, By Mouth, Daily, # 30 tablet, 5 Refills, [facility] #70181, 162, cm, 10/09/21 16:19:00 EDT, Height, 86.3, kg, 09/29/20 15:30:00 EDT, Dry Weight Start Date: 10/20/21 Status: Ordered meclizine 25 mg oral tablet 1 tablet = 25 mg, By Mouth, 2 times a day, # 30 tablet, 1 Refills, Maintenance, 07/10/21 17:25:00 EDT, Tablet, [facility] #26855, 162, cm, 06/19/21 15:40:00 EDT, Height, 86.3, kg, 09/29/20 15:30:00 EDT, Dry Weight Start Date: 07/10/21 Status: Ordered multivitamin with iron Multiple Vitamins with Iron oral tablet 1 tablet, By Mouth, Daily, # 30 tablet, 11 Refills, Maintenance, 04/17/22 7:51:00 EST, Tablet, [facility] #[id number], 1 tablet By Mouth Daily, 162.56, cm, 04/16/22 16:00:00 EST, Height, 87.6, kg, 10/24/21 8:00:00 EDT, Dry Weight Start Date: 04/17/22 Status: Ordered Narcan 4 mg/0.1 mL nasal spray = 4 mg, Inhalation, Once, # 2 each, 1 Refills, Soft Stop, 10/29/20 12:23:00 EDT, [facility] #[id number], Partial fill upon patient request if the prescription is for a schedule II opioid drug., 162, cm, 09/29/20 15:30:00 EDT, Height, 86.3, kg, 08... Start Date: 10/29/20 Status: Ordered ondansetron 4 mg oral tablet 1 tablet = 4 mg, By Mouth, Daily, PRN Nausea & Vomiting, # 10 tablet, 3 Refills, Maintenance, 06/25/22 17:28:00 EDT, [facility] #[id number], 162.56, cm, 06/25/22 16:16:00 EDT, Height, 87.6, [...] 2 Refills, Maintenance, 08/21/22 17:50:00 EDT, Tablet, [facility] #22063, this is correct dose. 200mg Rx just sent by mistake., 162.56, cm, 08/20/22 13:54:00 EDT, Height, 79.54, kg, 06... Start Date: 08/21/22 Status: Ordered Senna 8.6 mg oral tablet 1-3 tablet, By Mouth, Daily, for constipation, # 90 tablet, Refills 5, Tot. Refills 5, Maintenance,03/26/20 15:25:00 EST, Route to Pharmacy Electronically, [facility] #[id number] Tablet, 162.56, cm, 03/21/20 15:01:00 EST, Height, [...] tablet, 5 Refills, Maintenance, 04/17/22 7:53:00 EST, [facility] #[id number], 162.56, cm, 04/16/22 16:00:00 EST, Height, 87.6, kg, 10/24/21 8:00:00 EDT, Dry Weight Start Date: 04/17/22 Status: Ordered Suboxone 8 mg-2 mg Sublingual Film 2 film, Sublingual, Daily, [id number] Scavron covering [id number] [place] dissolve under the tongue may fill less due 09/03/2022, # 14 film, 0 Refills, Maintenance, 09/03/22 11:42:00 EDT, Film, [facility], 2 film Sublingual Daily,x7... Start Date: 09/03/22 Stop Date: 09/10/22 Status: Ordered Suboxone 8 mg-2 mg Sublingual Film 2 film, Sublingual, Daily, [id number] [place] covering [id number] [place] dissolve under the tongue may fill less due 09/10/2022, # 14 film, 0 Refills, Maintenance, 09/03/22 12:54:00 EDT, Film, [facility], 2 film Sublingual Daily,x... Start Date: 09/03/22 Stop Date: 09/10/22 Status: Ordered SUMAtriptan 25 mg oral tablet 1 tablet = 25 mg, By Mouth, Daily, PRN as needed for migraine headache, may repeat dose after 2 hours up to a maximum of 2, # 6 tablet, 1 Refills, Maintenance, 03/02/20 19:47:00 EST, Tablet, [facility] #[id number], 162.56, cm, 01/04/20 9:40:00 ES... Start Date: 03/02/20 Status: Ordered zolpidem 5 mg oral tablet 0.5 tablet = 2.5 mg, By Mouth, Daily at bedtime, PRN as needed for sleep, Note decrease in dose., #14 tablet, 1 Refills, Maintenance, 09/10/22 17:51:00 EDT, [facility] #[id number], 09/10/22, 162.56, cm, 08/20/22 13:54:00 EDT, Height, [...] use disorder Confirmed Active Pancytopenia Confirmed Active *[id number] Surgical First Assistant April Saavedra Confirmed Active Portal hypertensive gastropathy [...] tolerance, and QD need over. 2genotype 02/02: [id number] is only mutation detected 3death of sister, caring for mother w/ dementia 4repeat screening colonoscopy in 2020 Social History Social History Type Response Smoking Status Former smoker, quit more than 30 days ago entered on: 12/05/21 Sex Patient Care team information Care Team Personnel Name: Kahlil Sun MD Position: [facility] Physician - Primary Care Member Role: PCP Address: Address: [address] [place] [address] Name: Sharri Prince Position: [facility] PCO Associate Professional Member Role: Lifetime Consulting Provider Care Team Related Persons Name: SHANITA MENDOZA Address: home [address] [place] [id number] Name: SHANITA MENDOZA [facility] Address: home [address] Name: ULICES PEARSON Name: ULICES ESPARZA Address: [place] [address] Name: LALA LI
--- OUTSIDE RECORDS SUMMARY | 2022-12-13 21:33 | XMS_ITS | Continuity of Care Document ---
Author Name Unknown Organization [facility] Address Unknown Care Team Providers Care [employer] Tube Bender Name Role Phone Kahlil Sun MD Primary Care Physician Encounter [facility] Date(s): 10/28/20 - 11/27/20 [facility] Allergies, Adverse Reactions, Alerts Substance Reaction [...] toxoids (Td) 03/10/01 Given 1Result Comment: #2, [facility] 2Result Comment: [facility] 3Result Comment: [facility] 4Result Comment: pharmacy 5Location History: [facility] 6Admin Note: vis 08/31/11 7Admin Note: ADMIN.BY RN 8Admin Note: Admin. by RN 9Admin Note: Admin. by RN 10Admin Note: Admin. by RN 11Admin Note: vis 06/15/15 12Admin Note: dose #6 (3rd in 2nd series) 13Admin Note: dose #5 14Admin Note: #3 15Admin Note: SARAHNI sanofi-pasteur 16Admin Note: ADMIN BEN, OCCUPATIONAL THERAPY AIDE 17Admin Note: BY LEXI Agudelo 18Admin Note: [...] 1 Refills, Maintenance, 09/12/20 16:18:00EDT, CR Tablet, [facility] #[id number], Partial fill upon patient request if the prescription is for a schedule II opioid drug., 162, cm, 09/12/20... Start Date: 09/12/20 Status: Ordered acyclovir 400 mg oral tablet 1 tablet = 400 mg, By Mouth, 2 times a day, # 10 tablet, 5 Refills, Maintenance, 01/26/20 16:20:00 EST, [facility], 162.56, cm, 10/09/19 10:36:00 EDT, Height, 72.3, kg, 09/26/18 16:01:00 EDT, Dry Weight Start Date: 01/26/20 Stop Date: 02/25/20 Status: Ordered Albuterol (Eqv-ProAir HFA) 90 mcg/inh inhalation aerosol 2 puffs, Inhalation, Every 4 hours, PRN NEEDED FOR WHEEZING/SHORTNESS OF BREATH, USE WITH SPACERCHAMBER, # 8.5 Gm, 5 Refills, [facility] #[id number], 16, INHALE 2 PUFFS INTO LUNGS EVERY 4 HOURS NEEDED FOR WHEEZING/SHORTNESS OF BREATH. USE... Start Date: 11/13/20 Status: Ordered albuterol 0.083% inhalation solution 3 mL = 2.5 mg, Inhalation, Every 6 hours, PRN Wheezing/Shortness of Breath, # 60 each, 0 Refills, Maintenance, 06/07/20 12:51:00 EDT, Solution, [facility] #[id number], 162.56, cm, 05/23/20 14:31:00 EDT, Height, 77, [...] tablet, 3 Refills, Maintenance, 03/02/20 19:50:00 EST, [facility] #[id number], 1 tablet By Mouth Daily, 162.56, cm, 01/04/20 9:40:00 EST, Height, 72.3, kg, 09/26/18 16:01:00 EDT, Dry Weight Start Date: 03/02/20 Status: Ordered Blood Pressure Meter Blood Pressure Meter, See Instructions, # 1 each, Refills 0, Tot. Refills 0, Maintenance, Use for, 07/11/18 16:11:47 EDT, Compound Start Date: 07/11/18 Status: Ordered buprenorphine-naloxone 2 mg-0.5 mg sublingual film 0.25 each, Sublingual, Daily, Dino [id number], # 8 film, 0 Refills, Maintenance, 12/15/19 19:00:00 EDT, [facility] #[id number], Partial fill on request., 0.25 each Sublingual Daily,Instr:Dino [id number], 162.56, cm, 10/09/19 10:36:00 EDT, Hei... Start Date: 12/15/19 Status: Ordered buprenorphine-naloxone 8 mg-2 mg sublingual film 1 film, Sublingual, Daily, dissolve under the tongue Scavron [id number] covering for [place] [id number], # 7 film, 0 Refills, Maintenance, 11/27/20 12:26:00 EDT, Film, [facility], Partial fill upon patient request if the prescriptio... Start Date: 11/27/20 Stop Date: 12/04/20 Status: Ordered cetirizine 10 mg oral tablet 1 tablet = 10 mg, By Mouth, Daily, For allergies., # 30 tablet, 2 Refills, Maintenance, 06/29/19 16:02:00 EDT, Tablet, [facility] #[id number], 162.56, cm, 05/03/19 16:30:00 EST, Height, 72.3, kg, 09/26/18 16:01:00 EDT, Dry Weight Start Date: 06/29/19 Status: Ordered cloNIDine 0.1 mg oral tablet 0.1 mg, 1, tablet, By Mouth, 3 times a day, as needed for anxiety, # 25 tablet, Refills 0, Tot. Refills 0, Maintenance, 10/10/19 21:36:00 EDT, Route to Pharmacy Electronically, [facility] #[id number], 162.56, cm, 10/09/19 10:36:00 EDT, Height, 72... [...] 5 Refills, Maintenance, 07/19/19 15:19:00 EDT, [place], [facility] #88487, 2 sprays Nares, Both Daily in AM,x30 days, 162.56, cm, 05/03/19 16:30:00 EST, Height, 72.3, kg, 09/26/18 16:01:00 EDT, Dry... Start Date: 07/19/19 Stop Date: 01/15/20 Status: Ordered Flovent HFA 44 mcg/inh inhalation aerosol 1 puffs, Inhalation, 2 times a day, # 1 each, 5 Refills, Maintenance, 06/07/20 12:52:00 EDT, Aerosol, [facility] #52057, 162.56, cm, 05/23/20 14:31:00 EDT, Height, 77, [...] 3 Refills, Maintenance, 03/02/20 19:48:00 EST, Tablet, [facility] #89861, 30 day supply preferred for present, 162.56, [...] 05/12/18 14:45:33 EDT, Route to Pharmacy Electronically, [id number], [facility] Start Date: 05/12/18 Status: Ordered LORazepam 0.5 mg oral tablet 0.5 tablet = 0.25 mg, By Mouth, 2 times a day, PRN as needed for anxiety, # 20 tablet, 1 Refills, Maintenance, 05/16/19 23:11:00 EDT, Tablet, [facility] #01099, 162.56, cm, 05/03/19 16:30:00 EST, Height, 72.3, kg, 09/26/18 16:01:00 EDT, Dry... Start Date: 05/16/19 Status: Ordered losartan 100 mg oral tablet 1 tablet, By Mouth, Daily, # 30 tablet, 5 Refills, Maintenance, 09/24/20 16:00:00 EDT, [facility] #[id number], 162, cm, 09/19/20 15:59:00 EDT, Height, 82.1, kg, 06/08/20 17:25:00 EDT, Dry Weight Start Date: 09/24/20 Status: Ordered meclizine 25 mg oral tablet 1 tablet = 25 mg, By Mouth, 2 times a day, # 30 tablet, 1 Refills, Maintenance, 03/30/19 15:49:00 EST, Tablet, [facility] #[id number], 162.56, cm, 03/08/19 14:34:00 EST, Height, 72.3, kg, 09/26/18 16:01:00 EDT, Dry Weight Start Date: 03/30/19 Status: Ordered Narcan 4 mg/0.1 mL nasal spray = 4 mg, Inhalation, Once, # 2 each, 1 Refills, Soft Stop, 10/29/20 12:23:00 EDT, [facility] #[id number], Partial fill upon patient request if the [...] each, 0 Refills, Maintenance, 06/04/20 16:46:00 EDT, [facility] #38862, OK to sub for any gallon prep, used as directed, 162.56, cm, 05/23/20 14:31:00 EDT, Height, 77, kg, 03/21/20 15:04:00 EST, Dry We... Start Date: 06/04/20 Status: Ordered Senna 8.6 mg oral tablet 1-3 tablet, By Mouth, Daily, for constipation, # 90 tablet, Refills 5, Tot. Refills 5, Maintenance,03/26/20 15:25:00 EST, Route to Pharmacy Electronically, [facility] #[id number] Tablet, 162.56, cm, 03/21/20 15:01:00 EST, Height, 77, kg, ... Start Date: 03/26/20 Status: Ordered Spacer for inhalers Spacer for inhalers, See Instructions, # 1 each, Refills 0, Tot. Refills 0, Maintenance, Use with inhalers as directed. [place]., 06/07/19 15:07:00 EDT, Compound, 162.56, cm, 05/03/19 [...] 1 Refills, Maintenance, 03/02/20 19:47:00 EST, Tablet, [facility] #16025, 162.56, cm, 01/04/20 9:40:00 ES... Start Date: 03/02/20 Status: Ordered Zofran 4 mg oral tablet 1 tablet = 4 mg, By Mouth, 2 times a day, PRN Nausea & Vomiting, # 10 tablet, 0 Refills, Maintenance, 09/19/20 18:37:00 EDT, Tablet, [facility] #50585, 162, cm, 09/19/20 15:59:00 EDT, Height, 82.1, [...] Active Opioid dependence(Confirmed) Active Opioid dependence(Confirmed) Active *[id number] Care Partn er April Saavedra(Confirmed) Active Health [...] tolerance, and QD need over. 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
--- OUTSIDE RECORDS SUMMARY | 2022-12-13 21:33 | XMS_ITS | Continuity of Care Document ---
Author Name Unknown Organization [facility] Address Unknown Care Team Providers Care Active Directory Administrator Name Role Phone Kahill Sun MD Primary Care Physician [phone] Encounter [facility] Date(s): 11/04/20 - 12/04/20 [facility] Allergies, Adverse Reactions, Alerts [...] toxoids (Td) 03/10/01 Given 1Result Comment: #2, [facility] 2Result Comment: [facility] 3Result Comment: [facility] 4Result Comment: pharmacy 5Location History: [facility] 6Admin Note: vis 08/31/11 7Admin Note: ADMIN.BY RN 8Admin Note: Admin. by RN 9Admin Note: Admin. by RN 10Admin Note: Admin. by RN 11Admin Note: vis 06/15/15 12Admin Note: dose #6 (3rd in 2nd series) 13Admin Note: dose #5 14Admin Note: #3 15Admin Note: SARAHNI sanofi-pasteur 16Admin Note: ADMIN BEN, MERCHANDISE COMPLAINT ADJUSTER 17Admin Note: BY LEXI Agudelo 18Admin Note: [...] 1 Refills, Maintenance, 09/12/20 16:18:00EDT, CR Tablet, [facility] #[id number], Partial fill upon patient request if the prescription is for a schedule II opioid drug., 162, cm, 09/12/20... Start Date: 09/12/20 Status: Ordered acyclovir 400 mg oral tablet 1 tablet = 400 mg, By Mouth, 2 times a day, # 10 tablet, 5 Refills, Maintenance, 01/26/20 16:20:00 EST, [facility], 162.56, cm, 10/09/19 10:36:00 EDT, Height, 72.3, kg, 09/26/18 16:01:00 EDT, Dry Weight Start Date: 01/26/20 Stop Date: 02/25/20 Status: Ordered Albuterol (Eqv-ProAir HFA) 90 mcg/inh inhalation aerosol 2 puffs, Inhalation, Every 4 hours, PRN NEEDED FOR WHEEZING/SHORTNESS OF BREATH, USE WITH SPACERCHAMBER, # 8.5 Gm, 5 Refills, [facility] #[id number], 16, INHALE 2 PUFFS INTO LUNGS EVERY 4 HOURS NEEDED FOR WHEEZING/SHORTNESS OF BREATH. USE... Start Date: 11/13/20 Status: Ordered albuterol 0.083% inhalation solution 3 mL = 2.5 mg, Inhalation, Every 6 hours, PRN Wheezing/Shortness of Breath, # 60 each, 0 Refills, Maintenance, 06/07/20 12:51:00 EDT, Solution, [facility] #[id number], 162.56, cm, 05/23/20 14:31:00 EDT, Height, 77, [...] tablet, 3 Refills, Maintenance, 03/02/20 19:50:00 EST, [facility] #[id number], 1 tablet By Mouth Daily, 162.56, cm, 01/04/20 9:40:00 EST, Height, 72.3, kg, 09/26/18 16:01:00 EDT, Dry Weight Start Date: 03/02/20 Status: Ordered Blood Pressure Meter Blood Pressure Meter, See Instructions, # 1 each, Refills 0, Tot. Refills 0, Maintenance, Use for, 07/11/18 16:11:47 EDT, Compound Start Date: 07/11/18 Status: Ordered buprenorphine-naloxone 2 mg-0.5 mg sublingual film 0.25 each, Sublingual, Daily, Dino [id number], # 8 film, 0 Refills, Maintenance, 12/15/19 19:00:00 EDT, [facility] #[id number], Partial fill on request., 0.25 each Sublingual Daily,Instr:Dino [id number], 162.56, cm, 10/09/19 10:36:00 EDT, Hei... Start Date: 12/15/19 Status: Ordered buprenorphine-naloxone 8 mg-2 mg sublingual film 1 film, Sublingual, Daily, dissolve under the tongue Scavron [id number] covering for [place] [id number], # 7 film, 0 Refills, Maintenance, 12/04/20 12:32:00 EDT, Film, [facility], Partial fill upon patient request if the prescriptio... Start Date: 12/04/20 Stop Date: 12/11/20 Status: Ordered cetirizine 10 mg oral tablet 1 tablet = 10 mg, By Mouth, Daily, For allergies., # 30 tablet, 2 Refills, Maintenance, 06/29/19 16:02:00 EDT, Tablet, [facility] #19689, 162.56, cm, 05/03/19 16:30:00 EST, Height, 72.3, kg, 09/26/18 16:01:00 EDT, Dry Weight Start Date: 06/29/19 Status: Ordered cloNIDine 0.1 mg oral tablet 0.1 mg, 1, tablet, By Mouth, 3 times a day, as needed for anxiety, # 25 tablet, Refills 0, Tot. Refills 0, Maintenance, 10/10/19 21:36:00 EDT, Route to Pharmacy Electronically, [facility] #[id number], 162.56, cm, 10/09/19 10:36:00 EDT, Height, 72... [...] Gm, 5 Refills, Maintenance, 07/19/19 15:19:00 EDT, [place], [facility] #[id number], 2 sprays Nares, Both Daily in AM,x30 days, 162.56, cm, 05/03/19 16:30:00 EST, Height, 72.3, kg, 09/26/18 16:01:00 EDT, Dry... Start Date: 07/19/19 Stop Date: 01/15/20 Status: Ordered Flovent HFA 44 mcg/inh inhalation aerosol 1 puffs, Inhalation, 2 times a day, # 1 each, 5 Refills, Maintenance, 06/07/20 12:52:00 EDT, Aerosol, [facility] #[id number], 162.56, cm, 05/23/20 14:31:00 EDT, Height, 77, [...] Instructions, # 1 each, Maintenance, covering for [facility] Blood pressure monitor neededto monitor [...] 3 Refills, Maintenance, 03/02/20 19:48:00 EST, Tablet, [facility] #03175, 30 day supply preferred for present, 162.56, [...] 05/12/18 14:45:33 EDT, Route to Pharmacy Electronically, [id number], [facility] Start Date: 05/12/18 Status: Ordered LORazepam 0.5 mg oral tablet 0.5 tablet = 0.25 mg, By Mouth, 2 times a day, PRN as needed for anxiety, # 20 tablet, 1 Refills, Maintenance, 05/16/19 23:11:00 EDT, Tablet, [facility] #[id number], 162.56, cm, 05/03/19 16:30:00 EST, Height, 72.3, kg, 09/26/18 16:01:00 EDT, Dry... Start Date: 05/16/19 Status: Ordered losartan 100 mg oral tablet 1 tablet, By Mouth, Daily, # 30 tablet, 5 Refills, Maintenance, 09/24/20 16:00:00 EDT, [facility] #63553, 162, cm, 09/19/20 15:59:00 EDT, Height, 82.1, kg, 06/08/20 17:25:00 EDT, Dry Weight Start Date: 09/24/20 Status: Ordered meclizine 25 mg oral tablet 1 tablet = 25 mg, By Mouth, 2 times a day, # 30 tablet, 1 Refills, Maintenance, 03/30/19 15:49:00 EST, Tablet, [facility] #[id number], 162.56, cm, 03/08/19 14:34:00 EST, Height, 72.3, kg, 09/26/18 16:01:00 EDT, Dry Weight Start Date: 03/30/19 Status: Ordered Narcan 4 mg/0.1 mL nasal spray = 4 mg, Inhalation, Once, # 2 each, 1 Refills, Soft Stop, 10/29/20 12:23:00 EDT, [facility] #[id number], Partial fill upon patient request if the [...] each, 0 Refills, Maintenance, 06/04/20 16:46:00 EDT, [facility] #09046, OK to sub for any gallon prep, used as directed, 162.56, cm, 05/23/20 14:31:00 EDT, Height, 77, kg, 03/21/20 15:04:00 EST, Dry We... Start Date: 06/04/20 Status: Ordered Senna 8.6 mg oral tablet 1-3 tablet, By Mouth, Daily, for constipation, # 90 tablet, Refills 5, Tot. Refills 5, Maintenance,03/26/20 15:25:00 EST, Route to Pharmacy Electronically, [facility] #36079 Tablet, 162.56, cm, 03/21/20 15:01:00 EST, Height, 77, kg, ... Start Date: 03/26/20 Status: Ordered Spacer for inhalers Spacer for inhalers, See Instructions, # 1 each, Refills 0, Tot. Refills 0, Maintenance, Use with inhalers as directed. Sami., 06/07/19 15:07:00 EDT, Compound, 162.56, cm, 05/03/19 [...] 1 Refills, Maintenance, 03/02/20 19:47:00 EST, Tablet, [facility] #[id number], 162.56, cm, 01/04/20 9:40:00 ES... Start Date: 03/02/20 Status: Ordered Zofran 4 mg oral tablet 1 tablet = 4 mg, By Mouth, 2 times a day, PRN Nausea & Vomiting, # 10 tablet, 0 Refills, Maintenance, 12/01/20 20:26:00 EDT, Tablet, [facility] #68311, 162, cm, 10/29/20 17:08:00 EDT, Height, 86.3, [...] Active Opioid dependence(Confirmed) Active Opioid dependence(Confirmed) Active *[id number] Care Partn er April Saavedra(Confirmed) Active Health [...] tolerance, and QD need over. 2genotype 02/02: [id number] is only mutation detected 3death of sister, caring for mother w/ dementia 4repeat screening colonoscopy in 2020 Social History Social History Type Response Smoking Status Former smoker, quit more than 30 days ago entered on: 10/29/20 Sex
--- OUTSIDE RECORDS SUMMARY | 2022-12-13 21:33 | XMS_ITS | Continuity of Care Document ---
Author Name Unknown Organization [facility] Address Unknown Care Team Providers Care Bending Shed Worker Name Role Phone Kahlil Sun MD Primary Care Physician [phone] Encounter [facility] Date(s): 04/24/21 - 05/24/21 [facility] Allergies, Adverse Reactions, Alerts [...] events reported or observed. 2Result Comment: #2, [facility] 3Result Comment: [facility] 4Result Comment: pharmacy 5Location History: [facility] 6Admin Note: vis 08/31/11 7Admin Note: ADMIN.BY RN 8Result Comment: [facility] 9Admin Note: Admin. by RN 10Admin Note: Admin. by RN 11Admin Note: Admin. by RN 12Admin Note: vis 06/14/16 13Admin Note: dose #6 (3rd in 2nd series) 14Admin Note: dose #5 15Admin Note: #3 16Admin Note: LITO sanofi-pasteur 17Admin Note: ADMIN BEN, LEGAL REFEREE 18Admin Note: BY LEXI Agudelo 19Admin Note: [...] 1 Refills, Maintenance, 09/12/20 16:18:00EDT, CR Tablet, [facility] #[id number], Partial fill upon patient request if the prescription is for a schedule II opioid drug., 162, cm, 09/12/20... Start Date: 09/12/20 Status: Ordered acyclovir 400 mg oral tablet 1 tablet = 400 mg, By Mouth, 2 times a day, # 10 tablet, 5 Refills, Maintenance, 01/08/21 18:41:00 EST, [facility] #[id number], 162, cm, 12/17/20 23:19:00 EDT, Height, 86.3, kg, 09/29/20 15:30:00 EDT, Dry Weight Start Date: 01/08/21 Stop Date: 02/07/21 Status: Ordered Albuterol (Eqv-ProAir HFA) 90 mcg/inh inhalation aerosol 2 puffs, Inhalation, Every 4 hours, PRN NEEDED FOR WHEEZING/SHORTNESS OF BREATH, USE WITH SPACERCHAMBER, # 8.5 Gm, 5 Refills, [facility] #[id number], 16, INHALE 2 PUFFS INTO LUNGS EVERY 4 HOURS NEEDED FOR WHEEZING/SHORTNESS OF BREATH. USE... Start Date: 11/13/20 Status: Ordered albuterol 0.083% inhalation solution 3 mL = 2.5 mg, Inhalation, Every 6 hours, PRN Wheezing/Shortness of Breath, # 60 each, 0 Refills, Maintenance, 06/07/20 12:51:00 EDT, Solution, [facility] #[id number], 162.56, cm, 05/23/20 14:31:00 EDT, Height, 77, [...] tablet, 3 Refills, Maintenance, 03/02/20 19:50:00 EST, [facility] #42583, 1 tablet By Mouth Daily, 162.56, cm, [...] 2 Refills, Maintenance, 06/29/19 16:02:00 EDT, Tablet, [facility] #[id number], 162.56, cm, 05/03/19 16:30:00 EST, Height, 72.3, kg, 09/26/18 16:01:00 EDT, Dry Weight Start Date: 06/29/19 Status: Ordered cloNIDine 0.1 mg oral tablet 0.1 mg, 1, tablet, By Mouth, 3 times a day, as needed for anxiety, # 25 tablet, Refills 0, Tot. Refills 0, Maintenance, 10/10/19 21:36:00 EDT, Route to Pharmacy Electronically, [facility] #[id number], 162.56, cm, 10/09/19 10:36:00 EDT, Height, 72... Start Date: 10/10/19 Status: Ordered Dulera 200 mcg-5 mcg/inh inhalation aerosol 2 puffs, Inhalation, 2 times a day, # 1 each, 3 Refills, Maintenance, 01/28/21 16:44:00 EST, Aerosol, [facility], STOP FLOVENT, 2 puffs Inhalation 2 times a day,x30 days, 162, cm,01/28/21 16:02:00 EST, Height, 86.3, kg, 09/29/20 1... Start Date: 01/28/21 Stop Date: 05/28/21 Status: Ordered escitalopram 5 mg oral tablet 1 tablet = 5 mg, By Mouth, Daily, # 30 tablet, 11 Refills, Maintenance, 05/07/21 9:48:00 EST, Tablet, [facility] #[id number], Partial fill upon patient request if the prescription is for a schedule II opioid drug., 162, cm, 05/07/21 8:46:00 EST,... Start Date: 05/07/21 Status: Ordered Flonase 50 mcg/inh nasal spray 2 sprays, Nares, Both, Daily in AM, # 16 Gm, 5 Refills, Maintenance, 07/19/19 15:19:00 EDT, [place], [facility] #[id number], 2 sprays Nares, Both Daily in AM,x30 days, 162.56, cm, 05/03/19 16:30:00 EST, Height, 72.3, kg, 09/26/18 16:01:00 EDT, Dry... Start Date: 07/19/19 Stop Date: 01/15/20 Status: Ordered fluconazole 150 mg oral tablet 1 tablet = 150 mg, By Mouth, Once, # 1 tablet, 1 Refills, Soft Stop, 01/08/21 19:37:00 EST, Tablet,[facility] #[id number], 162, cm, 12/17/20 23:19:00 EDT, Height, 86.3, [...] 04/24/21 12:37:00 EST, Route to Pharmacy Electronically, [facility] #[id number], STOP HCTZ, 162, cm, 03/24/21 18:41:00 EST, [...] 05/12/18 14:45:33 EDT, Route to Pharmacy Electronically, [id number], [facility] Start Date: 05/12/18 Status: Ordered LORazepam 0.5 mg oral tablet 0.5 tablet = 0.25 mg, By Mouth, 2 times a day, PRN as needed for anxiety, # 20 tablet, 1 Refills, Maintenance, 05/16/19 23:11:00 EDT, Tablet, [facility] #[id number], 162.56, cm, 05/03/19 16:30:00 EST, Height, 72.3, kg, 09/26/18 16:01:00 EDT, Dry... Start Date: 05/16/19 Status: Ordered losartan 100 mg oral tablet 1 tablet, By Mouth, Daily, # 30 tablet, 5 Refills, Maintenance, 09/24/20 16:00:00 EDT, [facility] #82557, 162, cm, 09/19/20 15:59:00 EDT, Height, 82.1, kg, 06/08/20 17:25:00 EDT, Dry Weight Start Date: 09/24/20 Status: Ordered meclizine 25 mg oral tablet 1 tablet = 25 mg, By Mouth, 2 times a day, # 30 tablet, 1 Refills, Maintenance, 03/30/19 15:49:00 EST, Tablet, [facility] #[id number], 162.56, cm, 03/08/19 14:34:00 EST, Height, 72.3, kg, 09/26/18 16:01:00 EDT, Dry Weight Start Date: 03/30/19 Status: Ordered multivitamin with iron Multiple Vitamins with Iron oral tablet 1 tablet, By Mouth, Daily, # 30 tablet, 11 Refills, Maintenance, 05/07/21 9:45:00 EST, Tablet, [facility] #51494, Partial fill upon patient request if the prescription is for a schedule II opioid drug., 1 tablet By Mouth Daily, 162, cm, 0... Start Date: 05/07/21 Status: Ordered Narcan 4 mg/0.1 mL nasal spray = 4 mg, Inhalation, Once, # 2 each, 1 Refills, Soft Stop, 10/29/20 12:23:00 EDT, [facility] #72614, Partial fill upon patient request if the [...] each, 0 Refills, Maintenance, 06/04/20 16:46:00 EDT, [facility] #33265, OK to sub for any gallon prep, used as directed, 162.56, cm, 05/23/20 14:31:00 EDT, Height, 77, kg, 03/21/20 15:04:00 EST, Dry We... Start Date: 06/04/20 Status: Ordered predniSONE 50 mg oral tablet 1 tablet = 50 mg, By Mouth, Daily, # 7 tablet, 0 Refills, Maintenance, 01/28/21 16:37:00 EST, Tablet, [facility], Partial fill upon patient request if the prescription is for a schedule II opioid drug., 162, cm, 01/28/21 16:02:00 E... Start Date: 01/28/21 Stop Date: 02/04/21 Status: Ordered Senna 8.6 mg oral tablet 1-3 tablet, By Mouth, Daily, for constipation, # 90 tablet, Refills 5, Tot. Refills 5, Maintenance,03/26/20 15:25:00 EST, Route to Pharmacy Electronically, [facility] #[id number] Tablet, 162.56, cm, 03/21/20 15:01:00 EST, Height, [...] 5 Refills, Maintenance, 04/24/21 12:36:00 EST, Tablet, [facility] #[id number], STOP HCTZ, 162, cm, 03/24/21 18:41:00 EST, [...] under the tongue increase in dose Marva [id number] covering Dino [id number] due on/after 05/02/2021, # 35 film, 0 Refills, Maintenance, 05/23/21 13:46:00 EDT,Film, [facility], 2.5 film... Start Date: 05/23/21 Status: Ordered SUMAtriptan 25 mg oral tablet 1 tablet = 25 mg, By Mouth, Daily, PRN as needed for migraine headache, may repeat dose after 2 hours up to a maximum of 2, # 6 tablet, 1 Refills, Maintenance, 03/02/20 19:47:00 EST, Tablet, [facility] #[id number], 162.56, cm, 01/04/20 9:40:00 ES... Start Date: 03/02/20 Status: Ordered Zofran 4 mg oral tablet 1 tablet = 4 mg, By Mouth, 2 times a day, PRN Nausea & Vomiting, # 10 tablet, 0 Refills, Maintenance, 05/01/21 1:24:00 EST, Tablet, [facility] #[id number], 162, cm, 03/24/21 18:41:00 EST, Height, 86.3, kg, 09/29/20 15:30:00 EDT, Dry Weight Start Date: 05/01/21 Status: Ordered zolpidem 5 mg oral tablet 0.5 tablet = 2.5 mg, By Mouth, Daily at bedtime, PRN sleep, # 5 tablet, 0 Refills, Acute 05/29/21 9:47:00 EDT, 05/07/21 9:46:00 EST, Tablet, [facility] #[id number], Partial fill upon patient request if the [...] Obese class I(Confirmed) Active Opioid dependence(Confirmed) Active *[id number] Care Partn Aprilleela LopezSaavedra(Confirmed) Active Health care [...] tolerance, and QD need over. 2genotype 02/02: [id number] is only mutation detected 3death of sister, caring for mother w/ dementia 4repeat screening colonoscopy in 2020 Social History Social History Type Response Smoking Status Former smoker, quit more than 30 days ago entered on: 10/29/20 Sex
--- OUTSIDE RECORDS SUMMARY | 2022-12-13 21:33 | XMS_ITS | Continuity of Care Document ---
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 Name Role Phone Kahlil Sun MD Primary Care Physician Encounter [facility] [place] Date(s): 06/29/19 - 07/06/19 [facility] [address] [place] [address]- [facility] Attending Physician: Kahlil Sun MD Allergies, Adverse [...] 0 Refills, Maintenance, 06/07/19 14:59:00 EDT, Solution, [facility] #[id number], 162.56, cm, 05/03/19 16:30:00 EST, Height, 72.3, kg, 09/26/18 16:01:00 EDT, Start Date: 06/07/19 Status: Ordered Bactrim 400 mg-80 mg oral tablet 1 tablet, By Mouth, 2 times a day, # 14 tablet, 0 Refills, Acute 12/09/19 15:46:00 EDT, 06/13/19 15:46:00 EDT, Tablet, [facility] #[id number], 1 tablet By Mouth 2 times a day, 162.56, cm, 05/03/19 16:30:00 EST, Height, 72.3, kg, 09/26/18 16:01:00... Start Date: 06/13/19 Stop Date: 12/09/19 Status: Ordered Biktarvy oral tablet 1 tablet, By Mouth, Daily, # 30 tablet, 11 Refills, Maintenance, 06/29/19 16:26:00 EDT, [facility] #[id number], 1 tablet By Mouth Daily, 162.56, cm, 05/03/19 16:30:00 EST, Height, 72.3, kg, 09/26/18 16:01:00 EDT, Dry Weight Start Date: 06/29/19 Status: Ordered Blood Pressure Meter Blood Pressure Meter, See Instructions, # 1 each, Refills 0, Tot. Refills 0, Maintenance, Use for, 07/11/18 16:11:47 EDT, Compound Start Date: 07/11/18 Status: Ordered buprenorphine-naloxone 2 mg-0.5 mg sublingual film 0.25 each, Sublingual, Daily, Dino [id number], # 4 film, 0 Refills, Maintenance, 07/04/19 17:54:00 EDT, [facility][id number], Partial fill on request., 0.25 each Sublingual Daily,Instr:Dino [id number], 162.56, cm, 05/03/19 16:30:00 EST, Hei... Start Date: 07/04/19 Status: Ordered cetirizine 10 mg oral tablet 1 tablet = 10 mg, By Mouth, Daily, For allergies., # 30 tablet, 2 Refills, Maintenance, 06/29/19 16:02:00 EDT, Tablet, [facility] #[id number], 162.56, cm, 05/03/19 16:30:00 EST, Height, 72.3, [...] Gm, 0 Refills, Maintenance, 06/07/19 14:55:00 EDT, Tram, [facility] #[id number], 2 sprays Nares, Both Daily in AM,x30 days, 162.56, cm, 05/03/19 16:30:00 EST, Height, 72.3, kg, 09/26/18 16:01:00 EDT, Dry... Start Date: 06/07/19 Stop Date: 07/07/19 Status: Ordered Flovent HFA 44 mcg/inh inhalation aerosol 1 puffs, Inhalation, 2 times a day, # 1 each, 5 Refills, Maintenance, 06/29/19 16:26:00 EDT, Aerosol, [facility] #[id number], 162.56, cm, 05/03/19 16:30:00 EST, Height, 72.3, kg, 09/26/18 16:01:00 EDT, Dry Weight Start Date: 06/29/19 Status: Ordered Home Blood Pressure Monitor See Instructions, # 1 each, Maintenance, covering for [facility] Blood pressure monitor neededto monitor blood [...] 2 Refills, Maintenance, 05/29/19 21:12:00 EDT, Tablet, [facility] #[id number], 30 day supply preferred for present, 162.56, [...] 05/12/18 14:45:33 EDT, Route to Pharmacy Electronically, [id number], [facility] Start Date: 05/12/18 Status: Ordered LORazepam 0.5 mg oral tablet 0.5 tablet = 0.25 mg, By Mouth, 2 times a day, PRN as needed for anxiety, # 20 tablet, 1 Refills, Maintenance, 05/16/19 23:11:00 EDT, Tablet, [facility] #[id number], 162.56, cm, 05/03/19 16:30:00 EST, Height, 72.3, kg, 09/26/18 16:01:00 EDT, Dry... Start Date: 05/16/19 Status: Ordered losartan 100 mg oral tablet 1 tablet = 100 mg, By Mouth, Daily, # 30 tablet, 11 Refills, Maintenance, 06/29/19 15:59:00 EDT, Tablet, [facility] #45097, 162.56, cm, 05/03/19 16:30:00 EST, Height, 72.3, kg, 09/26/18 16:01:00 EDT, Dry Weight Start Date: 06/29/19 Status: Ordered meclizine 25 mg oral tablet 1 tablet = 25 mg, By Mouth, 2 times a day, # 30 tablet, 1 Refills, Maintenance, 03/30/19 15:49:00 EST, Tablet, [facility] #[id number], 162.56, cm, 03/08/19 14:34:00 EST, Height, 72.3, [...] 15:00:00 EDT, Aerosol, Route to Pharmacy Electronically, [id number], [facility] #[id number], 1... Start Date: 06/07/19 Status: Ordered Senna 8.6 mg oral tablet 1-3 tablet, By Mouth, Daily, for constipation, # 90 tablet, Refills 5, Tot. Refills 5, Maintenance,02/17/18 15:12:45 EST, Route to Pharmacy Electronically, [id number], [facility] Tablet Start Date: 02/17/18 Status: Ordered Spacer for inhalers Spacer for inhalers, See Instructions, # 1 each, Refills 0, Tot. Refills 0, Maintenance, Use with inhalers as directed. Tajik., 06/07/19 15:07:00 EDT, Compound, 162.56, cm, 05/03/19 16:30:00 EST, Height, 72.3, kg, 09/26/18 16:01:00 EDT, Dry Weight Start Date: 06/07/19 Status: Ordered SUMAtriptan 25 mg oral tablet 1 tablet = 25 mg, By Mouth, Daily, PRN as needed for migraine headache, may repeat dose after 2 hours up to a maximum of 2, # 6 tablet, 1 Refills, Maintenance, 04/18/19 13:31:00 EST, Tablet, [facility] #[id number], 162.56, cm, 03/08/19 14:34:00 E... Start Date: 04/18/19 Status: Ordered Zofran 4 mg oral tablet 1 tablet = 4 mg, By Mouth, 2 times a day, PRN Nausea & Vomiting, # 20 tablet, 0 Refills, Maintenance, 05/24/19 22:41:00 EDT, Tablet, [facility] #97884, 162.56, cm, 05/03/19 16:30:00 EST, Height, 72.3, kg, 09/26/18 16:01:00 EDT, Dry Weight Start Date: 05/24/19 Status: Ordered zolpidem 5 mg oral tablet 0 Refills, Maintenance, 01/22/18 21:33:47 EST Start Date: 01/22/18 Status: Ordered Problem List Condition Effective Dates Status Health Status Inform ant Abdominal bloating(Confirmed) Active Acne(Confirmed) Active *[id number]- Care Part ner pAril Saavedra(Confirmed) Active AIDS (acquired immunodeficie ncy syndrome). [...] tolerance, and QD need over. 2genotype 02/02: [id number] is only mutation detected 3death of sister, caring for mother w/ dementia 4repeat screening colonoscopy in 2020 Social History Social History Type Response Smoking Status Former smoker, quit more than 30 days ago entered on: 05/24/18 Sex
--- OUTSIDE RECORDS SUMMARY | 2022-12-13 21:33 | XMS_ITS | Continuity of Care Document ---
Author Name Unknown Organization [facility] Address [address] [place] [address]- Care Team Providers Care Technician'S Helper Name Role Phone Dino PEREZ, Kahlil Barrera Primary Care Physician [phone] Encounter [facility] [place] Date(s): 06/15/22 - 07/17/22 [facility] [address]- Attending Physician: Vida Goldsmith NP Admitting Physician: [...] or observed. 2Result Comment: #2, [facility] 3Result Comment: [facility] 4Result Comment: pharmacy 5Location History: [facility] 6Admin Note: vis 08/31/11 7Admin Note: ADMIN.BY RN 8Result Comment: [facility] 9Admin Note: Admin. by RN 10Admin Note: Admin. by RN 11Admin Note: Admin. 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 USE... Start Date: 11/13/20 Status: Ordered albuterol 0.083% inhalation solution 3 mL = 2.5 mg, Inhalation, Every 6 hours, PRN Wheezing/Shortness of Breath, # 60 each, 0 Refills, Maintenance, 06/07/20 12:51:00 EDT, Solution, [facility] #49685, 162.56, cm, 05/23/20 14:31:00 EDT, Height, 77, [...] tablet, 12 Refills, Maintenance, 04/17/22 7:54:00 EST, [facility] #70229, 1 tablet By Mouth Daily, 162.56, cm, 04/16/22 16:00:00 EST, Height, 87.6, kg, 10/24/21 8:00:00 EDT, Dry Weight Start Date: 04/17/22 Status: Ordered Biktarvy oral tablet See Instructions, TAKE 1 TABLET BY MOUTH DAILY, # 90 tablet, 0 Refills, Maintenance, 07/15/22 13:50:00 EDT, [facility] #54066, 90, TAKE 1 TABLET BY MOUTH DAILY, [...] 1 Refills, Maintenance, 07/10/21 18:35:00 EDT, Tablet, [facility] #29309, Partial fill upon patient request if the prescription is for a schedule II opioid drug., 162, cm, 06/19/21 15:40:00 EDT... Start Date: 07/10/21 Status: Ordered cloNIDine 0.1 mg oral tablet 1, tablet, By Mouth, 3 times a day, PRN, # 270 tablet, Refills 0, Tot. Refills 0, Maintenance, NEEDED FOR ANXIETY, 05/13/22 16:45:00 EDT, Route to Pharmacy Electronically, [facility] #[id number], 162.56, cm, 05/07/22 12:32:00 EST, Height, 87.6... Start Date: 05/13/22 Status: Ordered Colace Clear 50 mg oral capsule 1 capsule = 50 mg, By Mouth, 2 times a day, PRN as needed for constipation, # 60 capsule, 0 Refills, Maintenance, 12/05/21 15:09:00 EDT, [facility] #53247, Partial fill upon patient requestif the prescription is for a schedule II opioid nhi... Start Date: 12/05/21 Status: Ordered diclofenac 1% topical gel = 2 Gm, Topically, 4 times a day, PRN for pain, not to exceed: 10 gm/day, # 100 Gm, 1 Refills, Maintenance, 05/29/21 16:52:00 EDT, Gel, [facility], Partial fill upon patient request if the prescription is for a schedule II opioid... Start Date: 05/29/21 Status: Ordered Dulera 200 mcg-5 mcg/inh inhalation aerosol 2 puffs, Inhalation, 2 times a day, # 1 each, 3 Refills, Maintenance, 01/28/21 16:44:00 EST, Aerosol, [facility], STOP FLOVENT, 2 puffs Inhalation 2 times a day,x30 days, 162, cm,01/28/21 16:02:00 EST, Height, 86.3, kg, 09/29/20 1... Start Date: 01/28/21 Stop Date: 05/28/21 Status: Ordered escitalopram 10 mg oral tablet 1 tablet = 10 mg, By Mouth, Daily, # 30 tablet, 11 Refills, Maintenance, 04/16/22 16:59:00 EST, Tablet, [facility] #[id number], Partial fill upon patient request if the [...] Gm, 5 Refills, Maintenance, 07/19/19 15:19:00 EDT, [place], [facility] #30614, 2 sprays Nares, Both Daily in AM,x30 [...] Replace Required Details, Route to Pharmacy Electronically, [facility] #[id number], 162.56, cm,... Start Date: 11/27/21 Status: Ordered [...] 2 Refills, Maintenance, 06/25/22 18:17:00 EDT, Syrup, [facility] #93733, 30 mL By Mouth 2 times a day, 162.56, cm, 06/25/22 16:16:00 EDT,Height, 87.6, kg, 10/24/21 8:00:00 EDT, Dry Weight Start Date: 4/27/23 Status: Ordered losartan 100 mg oral tablet 1 tablet, By Mouth, Daily, # 30 tablet, 5 Refills, [facility] #96860, 162, cm, 10/09/21 16:19:00 EDT, Height, 86.3, kg, 09/29/20 15:30:00 EDT, Dry Weight Start Date: 10/20/21 Status: Ordered meclizine 25 mg oral tablet 1 tablet = 25 mg, By Mouth, 2 times a day, # 30 tablet, 1 Refills, Maintenance, 07/10/21 17:25:00 EDT, Tablet, [facility] #57260, 162, cm, 06/19/21 15:40:00 EDT, Height, 86.3, kg, 09/29/20 15:30:00 EDT, Dry Weight Start Date: 07/10/21 Status: Ordered multivitamin with iron Multiple Vitamins with Iron oral tablet 1 tablet, By Mouth, Daily, # 30 tablet, 11 Refills, Maintenance, 04/17/22 7:51:00 EST, Tablet, [facility] #52999, 1 tablet By Mouth Daily, 162.56, cm, 04/16/22 16:00:00 EST, Height, 87.6, kg, 10/24/21 8:00:00 EDT, Dry Weight Start Date: 04/17/22 Status: Ordered Narcan 4 mg/0.1 mL nasal spray = 4 mg, Inhalation, Once, # 2 each, 1 Refills, Soft Stop, 10/29/20 12:23:00 EDT, [facility] #[id number], Partial fill upon patient request if the prescription is for a schedule II opioid drug., 162, cm, 09/29/20 15:30:00 EDT, Height, 86.3, kg, 08... Start Date: 10/29/20 Status: Ordered ondansetron 4 mg oral tablet 1 tablet = 4 mg, By Mouth, Daily, PRN Nausea & Vomiting, # 10 tablet, 3 Refills, Maintenance, 06/25/22 17:28:00 EDT, [facility] #[id number], 162.56, cm, 06/25/22 16:16:00 EDT, Height, 87.6, [...] each, 0 Refills, Maintenance, 06/04/20 16:46:00 EDT, [facility] #58445, OK to sub for any gallon prep, used as directed, 162.56, cm, 05/23/20 14:31:00 EDT, Height, 77, kg, 03/21/20 15:04:00 EST, Dry We... Start Date: 06/04/20 Status: Ordered Senna 8.6 mg oral tablet 1-3 tablet, By Mouth, Daily, for constipation, # 90 tablet, Refills 5, Tot. Refills 5, Maintenance,03/26/20 15:25:00 EST, Route to Pharmacy Electronically, [facility] #[id number] Tablet, 162.56, cm, 03/21/20 15:01:00 EST, Height, [...] tablet, 5 Refills, Maintenance, 04/17/22 7:53:00 EST, [facility] #03102, 162.56, cm, 04/16/22 16:00:00 EST, Height, 87.6, kg, 10/24/21 8:00:00 EDT, Dry Weight Start Date: 04/17/22 Status: Ordered Suboxone 8 mg-2 mg Sublingual Film 2 film, Sublingual, Daily, [id number] [place] dissolve under the tongue may fill less due 07/13/2022,# 14 film, 0 Refills, Maintenance, 07/07/22 17:39:00 EDT, Film, [facility], 2 film Sublingual Daily,x7 days,Instr:[id number] Cathy... Start Date: 07/07/22 Stop Date: 07/14/22 Status: Ordered SUMAtriptan 25 mg oral tablet 1 tablet = 25 mg, By Mouth, Daily, PRN as needed for migraine headache, may repeat dose after 2 hours up to a maximum of 2, # 6 tablet, 1 Refills, Maintenance, 03/02/20 19:47:00 EST, Tablet, [facility] #65009, 162.56, cm, 01/04/20 9:40:00 ES... 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 2genotype 02/02: [id number] is only mutation detected 3death of sister, caring for mother w/ dementia 4repeat screening colonoscopy in 2020 Social History Social History Type Response Smoking Status Former smoker, quit more than 30 days ago entered on: 12/05/21 Sex Patient Care team information Care Team Personnel Name: Kahlil Sun MD Position: [facility] Primary Care Physician Member Role: PCP Address: Address: [address] [place] [id number] [place] Name: Sharri Prince Position: [facility] PCO Associate Professional Member Role: Lifetime Consulting Provider Care Team Related Persons Name: SHANITA MENDOZA Address: home [address] [place] [address] Name: SHANITA MENDOZA Address: home [address] Name: ULICES PEARSON Name: ULICES ESPARZA Address: [place] [address] Name: LALA LI
--- OUTSIDE RECORDS SUMMARY | 2022-12-13 21:33 | XMS_ITS | Continuity of Care Document ---
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 2Result Comment: #2, [facility] 3Result Comment: [facility] 4Result Comment: pharmacy 5Location History: [facility] 6Admin Note: vis 08/31/11 7Admin Note: ADMIN.BY RN 8Result Comment: [facility] 9Admin Note: Admin. by RN 10Admin Note: Admin. by RN 11Admin Note: Admin. 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 USE... Start Date: 11/13/20 Status: Ordered albuterol 0.083% inhalation solution 3 mL = 2.5 mg, Inhalation, Every 6 hours, PRN Wheezing/Shortness of Breath, # 60 each, 0 Refills, Maintenance, 06/07/20 12:51:00 EDT, Solution, [facility] #[id number], 162.56, cm, 05/23/20 14:31:00 EDT, Height, 77, [...] 2 Refills, Maintenance, 08/30/22 11:09:00 EDT, Gel, [facility] #[id number], 1 applic... Start Date: 08/30/22 Status: Ordered benzoyl peroxide 2.5% topical gel 1 application, Topically, 2 times a day, keep away from eyes and mucous membranes. clean affected area before application. Start daily and increase to twice a day if tolerated., # 60 Gm, 3 Refills, Maintenance, 09/08/22 22:51:00 EDT, [facility]... Start Date: 09/08/22 Status: Ordered Biktarvy oral tablet 1 tablet, By Mouth, Daily, # 30 tablet, 12 Refills, Maintenance, 04/17/22 7:54:00 EST, [facility] #52738, 1 tablet By Mouth Daily, 162.56, cm, 04/16/22 16:00:00 EST, Height, 87.6, kg, 10/24/21 8:00:00 EDT, Dry Weight Start Date: 04/17/22 Status: Ordered Biktarvy oral tablet See Instructions, TAKE 1 TABLET BY MOUTH DAILY, # 90 tablet, 0 Refills, Maintenance, 07/15/22 13:50:00 EDT, [facility] #15247, 90, TAKE 1 TABLET BY MOUTH DAILY, [...] 1 Refills, Maintenance, 07/10/21 18:35:00 EDT, Tablet, [facility] #53809, Partial fill upon patient request if the [...] 08/12/22 15:06:00 EDT, Route to Pharmacy Electronically, [facility] #[id number], 162.56, cm, 07/30/22 10:55:00 EDT, Height, 79.... Start Date: 08/12/22 Status: Ordered Colace Clear 50 mg oral capsule 1 capsule = 50 mg, By Mouth, 2 times a day, PRN as needed for constipation, # 60 capsule, 0 Refills, Maintenance, 12/05/21 15:09:00 EDT, [facility] #45053, Partial fill upon patient requestif the prescription [...] 0 Refills, Maintenance, 07/30/22 12:03:00 EDT, Tablet, [facility] #88485, Partial fill upon patient request if the prescription is for a schedule II opioid drug., 162.56, cm, 07/30/22 10:55:00... Start Date: 07/30/22 Status: Ordered ferrous fumarate 324 mg oral tablet 1 tablet = 324 mg, By Mouth, Every other day, # 45 tablet, 0 Refills, Maintenance, 07/31/22 11:19:00 EDT, Tablet, [facility] #[id number], Partial fill upon patient request if the [...] Gm, 5 Refills, Maintenance, 07/19/19 15:19:00 EDT, [place], [facility] #42224, 2 sprays Nares, Both Daily in AM,x30 [...] 09/24/22 17:20:00 EDT, Route to Pharmacy Electronically, [facility] #[id number], 162.56, cm, 09/17/22 12:56:00 EDT, Heigh... Start [...] Instructions, # 1 each, Maintenance, [facility] Blood pressure monitor neededto monitor blood [...] 2 Refills, Maintenance, 07/30/22 12:17:00 EDT, Syrup, [facility] #29306, 30 mL By Mouth 4 times a day, 162.56, cm, 07/30/22 10:55:00 EDT,Height, 79.54, kg, 07/30/22 10:55:00 EDT, Dry Weight Start Date: 07/30/22 Status: Ordered losartan 100 mg oral tablet 1 tablet, By Mouth, Daily, # 30 tablet, 5 Refills, [facility] #14102, 162, cm, 10/09/21 16:19:00 EDT, Height, 86.3, kg, 09/29/20 15:30:00 EDT, Dry Weight Start Date: 10/20/21 Status: Ordered meclizine 25 mg oral tablet 1 tablet = 25 mg, By Mouth, 2 times a day, # 30 tablet, 1 Refills, Maintenance, 07/10/21 17:25:00 EDT, Tablet, [facility] #25455, 162, cm, 06/19/21 15:40:00 EDT, Height, 86.3, kg, 09/29/20 15:30:00 EDT, Dry Weight Start Date: 07/10/21 Status: Ordered multivitamin with iron Multiple Vitamins with Iron oral tablet 1 tablet, By Mouth, Daily, # 30 tablet, 11 Refills, Maintenance, 04/17/22 7:51:00 EST, Tablet, [facility] #[id number], 1 tablet By Mouth Daily, 162.56, cm, 04/16/22 16:00:00 EST, Height, 87.6, kg, 10/24/21 8:00:00 EDT, Dry Weight Start Date: 04/17/22 Status: Ordered Narcan 4 mg/0.1 mL nasal spray = 4 mg, Inhalation, Once, # 2 each, 1 Refills, Soft Stop, 10/29/20 12:23:00 EDT, [facility] #42061, Partial fill upon patient request if the prescription is for a schedule II opioid drug., 162, cm, 09/29/20 15:30:00 EDT, Height, 86.3, kg, 08... Start Date: 10/29/20 Status: Ordered ondansetron 4 mg oral tablet 1 tablet = 4 mg, By Mouth, Daily, PRN Nausea & Vomiting, # 10 tablet, 3 Refills, Maintenance, 06/25/22 17:28:00 EDT, [facility] #62400, 162.56, cm, 06/25/22 16:16:00 EDT, Height, 87.6, [...] 2 Refills, Maintenance, 08/21/22 17:50:00 EDT, Tablet, [facility] #00502, this is correct dose. 200mg Rx just sent by mistake., 162.56, cm, 08/20/22 13:54:00 EDT, Height, 79.54, kg, 06... Start Date: 08/21/22 Status: Ordered Senna 8.6 mg oral tablet 1-3 tablet, By Mouth, Daily, for constipation, # 90 tablet, Refills 5, Tot. Refills 5, Maintenance,03/26/20 15:25:00 EST, Route to Pharmacy Electronically, [facility] #[id number] Tablet, 162.56, cm, 03/21/20 15:01:00 EST, Height, [...] 09/24/22 17:20:00 EDT, Route to Pharmacy Electronically, [facility] #[id number], 162.56, cm, 09/17/22 12:56:00 EDT, [facility]... Start Date: 09/24/22 Status: Ordered Suboxone 8 mg-2 mg Sublingual Film 2 film, Sublingual, Daily, [id number] D[place] dissolve under the tongue may fill less due 10/01/2022, # 14 film, 0 Refills, Maintenance, 09/24/22 17:02:00 EDT, Film, [facility], 2 film Sublingual Daily,x7 days,Instr:[id number] Linc... Start Date: 09/24/22 Stop Date: 10/01/22 Status: Ordered SUMAtriptan 25 mg oral tablet 1 tablet = 25 mg, By Mouth, Daily, PRN as needed for migraine headache, may repeat dose after 2 hours up to a maximum of 2, # 6 tablet, 1 Refills, Maintenance, 03/02/20 19:47:00 EST, Tablet, [facility] #[id number], 162.56, cm, 01/04/20 9:40:00 ES... 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 2genotype 02/02: [id number] is only mutation detected 3death of sister, caring for mother w/ dementia 4repeat screening colonoscopy in 2020 Social History Social History Type Response Smoking Status Former smoker, quit more than 30 days ago entered on: 12/05/21 Sex Patient Care team information Care Team Personnel Name: Kahlil Sun MD Position: [facility] Physician - Primary Care Member Role: PCP Address: Address: [address] [place] [address] Name: Sharri Prince Position: [facility] PCO Associate Professional Member Role: Lifetime Consulting Provider Care Team Related Persons Name: SHANITA MENDOZA Address: home [address] [place] [address] Name: SHANITA MENDOZA [facility] Address: home [address] Name: ULICES PEARSON Name: ULICES ESPARZA Address: [place] [address] Name: LALA LI
--- OUTSIDE RECORDS SUMMARY | 2022-12-13 21:33 | XMS_ITS | Continuity of Care Document ---
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 by RN 9Admin Note: Admin. by RN 10Admin Note: Admin. 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 Refills 0, Maintenance, Use for, 07/11/18 16:11:47 EDT, Compound Start Date: 07/11/18 Status: Ordered buprenorphine-naloxone 2 mg-0.5 mg sublingual film 1 film, Sublingual, Daily, [place] [id number], # 14 film, 0 Refills, Maintenance, 06/17/20 16:56:00 EDT, [facility] #07258, Partial fill on request., 1 film Sublingual Daily,Instr:Wright [id number], 163, cm, 06/08/20 17:25:00 EDT, Height, 82.... Start Date: 06/17/20 Status: Ordered buprenorphine-naloxone 2 mg-0.5 mg sublingual film 0.25 each, Sublingual, Daily, [place] [id number], # 8 film, 0 Refills, Maintenance, 12/15/19 19:00:00 EDT, [facility] #71651, Partial fill on request., 0.25 each Sublingual Daily,Instr:W[place] [id number], 162.56, cm, 10/09/19 10:36:00 EDT, Hei... Start Date: 12/15/19 Status: Ordered cetirizine 10 mg oral tablet 1 tablet = 10 mg, By Mouth, Daily, For allergies., # 30 tablet, 2 Refills, Maintenance, 06/29/19 16:02:00 EDT, Tablet, [facility] #50419, 162.56, cm, 05/03/19 16:30:00 EST, Height, 72.3, kg, 09/26/18 16:01:00 EDT, Dry Weight Start Date: 06/29/19 Status: Ordered cloNIDine 0.1 mg oral tablet 0.1 mg, 1, tablet, By Mouth, 3 times a day, as needed for anxiety, # 25 tablet, Refills 0, Tot. Refills 0, Maintenance, 10/10/19 21:36:00 EDT, Route to Pharmacy Electronically, [facility] #62232, 162.56, cm, 10/09/19 10:36:00 EDT, Height, 72... [...] Gm, 5 Refills, Maintenance, 07/19/19 15:19:00 EDT, [place], [facility] #47328, 2 sprays Nares, Both Daily in AM,x30 days, 162.56, cm, 05/03/19 16:30:00 EST, Height, 72.3, kg, 09/26/18 16:01:00 EDT, Dry... Start Date: 07/19/19 Stop Date: 01/15/20 Status: Ordered Flovent HFA 44 mcg/inh inhalation aerosol 1 puffs, Inhalation, 2 times a day, # 1 each, 5 Refills, Maintenance, 06/07/20 12:52:00 EDT, Aerosol, [facility] #48388, 162.56, cm, 05/23/20 14:31:00 EDT, Height, 77, [...] 3 Refills, Maintenance, 03/02/20 19:48:00 EST, Tablet, [facility] #32514, 30 day supply preferred for present, 162.56, [...] 05/12/18 14:45:33 EDT, Route to Pharmacy Electronically, [id number], [facility] Start Date: 05/12/18 Status: Ordered LORazepam 0.5 mg oral tablet 0.5 tablet = 0.25 mg, By Mouth, 2 times a day, PRN as needed for anxiety, # 20 tablet, 1 Refills, Maintenance, 05/16/19 23:11:00 EDT, Tablet, [facility] #24532, 162.56, cm, 05/03/19 16:30:00 EST, Height, 72.3, kg, 09/26/18 16:01:00 EDT, Dry... Start Date: 05/16/19 Status: Ordered losartan 100 mg oral tablet 1 tablet = 100 mg, By Mouth, Daily, # 30 tablet, 2 Refills, Maintenance, 06/26/20 8:47:00 EDT, Tablet, [facility] #22379, 162, cm, 06/19/20 8:04:00 EDT, Height, 82.1, kg, 06/08/20 17:25:00 EDT, Dry Weight Start Date: 06/26/20 Status: Ordered meclizine 25 mg oral tablet 1 tablet = 25 mg, By Mouth, 2 times a day, # 30 tablet, 1 Refills, Maintenance, 03/30/19 15:49:00 EST, Tablet, [facility] #19969, 162.56, cm, 03/08/19 14:34:00 EST, Height, 72.3, [...] each, 0 Refills, Maintenance, 06/04/20 16:46:00 EDT, [facility] #38836, OK to sub for any gallon prep, [...] 12:51:00 EDT, Aerosol, Route to Pharmacy Electronically, [id number], [facility] #52618, 1... Start Date: 06/07/20 Status: Ordered Senna 8.6 mg oral tablet 1-3 tablet, By Mouth, Daily, for constipation, # 90 tablet, Refills 5, Tot. Refills 5, Maintenance,03/26/20 15:25:00 EST, Route to Pharmacy Electronically, [facility] #36427 Tablet, 162.56, cm, 03/21/20 15:01:00 EST, Height, [...] 1 Refills, Maintenance, 03/02/20 19:47:00 EST, Tablet, [facility] #78378, 162.56, cm, 01/04/20 9:40:00 ES... Start Date: 03/02/20 Status: Ordered Zofran 4 mg oral tablet 1 tablet = 4 mg, By Mouth, 2 times a day, PRN Nausea & Vomiting, # 10 tablet, 0 Refills, Maintenance, 05/04/20 17:09:00 EST, Tablet, [facility] #80117, 162.56, cm, 05/03/20 9:23:00 EST,Height, 77, kg, [...] 2016 Active Migraine(Confirmed) Active Opioid dependence(Confirmed) Active *[id number] Care Partn er April Saavedra(Confirmed) Active Health [...] tolerance, and QD need over. 2genotype 02/02: [id number] is only mutation detected 3death of sister, caring for mother w/ dementia 4repeat screening colonoscopy in 2020 Social History Social History Type Response Smoking Status Former smoker, quit more than 30 days ago entered on: 05/24/18 Sex
--- OUTSIDE RECORDS SUMMARY | 2022-12-13 21:33 | XMS_ITS | Continuity of Care Document ---
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 2Result Comment: #2, [facility] 3Result Comment: [facility] 4Result Comment: pharmacy 5Location History: [place] 6Admin Note: vis 08/31/11 7Admin Note: ADMIN.BY RN 8Result Comment: [facility] 9Admin Note: Admin. by RN [...] 5 Refills, Maintenance, 12/05/21 14:43:00EDT, CR Tablet, [facility] #91829, Partial fill upon patient request if the prescription is for a schedule II opioid drug., 162.56, cm, 12/05... Start Date: 12/05/21 Status: Ordered acyclovir 400 mg oral tablet 1 tablet = 400 mg, By Mouth, 2 times a day, # 10 tablet, 5 Refills, Maintenance, 01/08/21 18:41:00 EST, [facility] #47204, 162, cm, 12/17/20 23:19:00 EDT, Height, 86.3, kg, 09/29/20 15:30:00 EDT, Dry Weight Start Date: 01/08/21 Stop Date: 02/07/21 Status: Ordered Albuterol (Eqv-ProAir HFA) 90 mcg/inh inhalation aerosol 2 puffs, Inhalation, Every 4 hours, PRN NEEDED FOR WHEEZING/SHORTNESS OF BREATH, USE WITH SPACERCHAMBER, # 8.5 Gm, 5 Refills, [facility] #05114, 16, INHALE 2 PUFFS INTO LUNGS EVERY 4 HOURS NEEDED FOR WHEEZING/SHORTNESS OF BREATH. USE... Start Date: 11/13/20 Status: Ordered albuterol 0.083% inhalation solution 3 mL = 2.5 mg, Inhalation, Every 6 hours, PRN Wheezing/Shortness of Breath, # 60 each, 0 Refills, Maintenance, 06/07/20 12:51:00 EDT, Solution, [facility] #11784, 162.56, cm, 05/23/20 14:31:00 EDT, Height, 77, [...] 01/04/22 19:11:00 EST, Route to Pharmacy Electronically, [facility] #41281, 162.56, cm, 11/0... Start Date: 01/04/22 Status: Ordered Biktarvy oral tablet 1 tablet, By Mouth, Daily, # 30 tablet, 12 Refills, Maintenance, 04/17/22 7:54:00 EST, [facility] #79046, 1 tablet By Mouth Daily, 162.56, cm, [...] 1 Refills, Maintenance, 07/10/21 18:35:00 EDT, Tablet, [facility] #88754, Partial fill upon patient request if the prescription is for a schedule II opioid drug., 162, cm, 06/19/21 15:40:00 EDT... Start Date: 07/10/21 Status: Ordered cloNIDine 0.1 mg oral tablet 1, tablet, By Mouth, 3 times a day, PRN, # 270 tablet, Refills 0, Tot. Refills 0, Maintenance, NEEDED FOR ANXIETY, 05/13/22 16:45:00 EDT, Route to Pharmacy Electronically, [facility] #79094, 162.56, cm, 05/07/22 12:32:00 EST, Height, 87.6... Start Date: 05/13/22 Status: Ordered Colace Clear 50 mg oral capsule 1 capsule = 50 mg, By Mouth, 2 times a day, PRN as needed for constipation, # 60 capsule, 0 Refills, Maintenance, 12/05/21 15:09:00 EDT, [facility] #32004, Partial fill upon patient requestif the prescription is for a schedule II opioid nhi... Start Date: 12/05/21 Status: Ordered diclofenac 1% topical gel = 2 Gm, Topically, 4 times a day, PRN for pain, not to exceed: 10 gm/day, # 100 Gm, 1 Refills, Maintenance, 05/29/21 16:52:00 EDT, Gel, [facility], Partial fill upon patient request if the prescription is for a schedule II opioid... Start Date: 05/29/21 Status: Ordered Dulera 200 mcg-5 mcg/inh inhalation aerosol 2 puffs, Inhalation, 2 times a day, # 1 each, 3 Refills, Maintenance, 01/28/21 16:44:00 EST, Aerosol, [facility], STOP FLOVENT, 2 puffs Inhalation 2 times a day,x30 days, 162, cm,01/28/21 16:02:00 EST, Height, 86.3, kg, 09/29/20 1... Start Date: 01/28/21 Stop Date: 05/28/21 Status: Ordered escitalopram 10 mg oral tablet 1 tablet = 10 mg, By Mouth, Daily, # 30 tablet, 11 Refills, Maintenance, 04/16/22 16:59:00 EST, Tablet, [facility] #02447, Partial fill upon patient request if the [...] Gm, 5 Refills, Maintenance, 07/19/19 15:19:00 EDT, [place], [facility] #09417, 2 sprays Nares, Both Daily in AM,x30 [...] Replace Required Details, Route to Pharmacy Electronically, [facility] #99685, 162.56, cm,... Start Date: 11/27/21 Status: Ordered [...] Replace Required Details, Route to Pharmacy Electronically, [facility] . Start Date: 04/16/22 Status: Ordered Glucose [...] # 1 each, Maintenance, covering for Sharri Larryrohithgia Blood pressure monitor neededto monitor blood pressure DX: hypertension, 07/11/18 17:28:42 EDT, Compound Start Date: 07/11/18 Status: Ordered humidifier humidifier, See Instructions, # 1 each, Refills 0, Tot. Refills 0, Maintenance, use as directed forchronic sinusitis J32, 04/09/17 14:21:37 EST, Compound Start Date: 04/09/17 Status: Ordered losartan 100 mg oral tablet 1 tablet, By Mouth, Daily, # 30 tablet, 5 Refills, [facility] #56567, 162, cm, 10/09/21 16:19:00 EDT, Height, 86.3, kg, 09/29/20 15:30:00 EDT, Dry Weight Start Date: 10/20/21 Status: Ordered meclizine 25 mg oral tablet 1 tablet = 25 mg, By Mouth, 2 times a day, # 30 tablet, 1 Refills, Maintenance, 07/10/21 17:25:00 EDT, Tablet, [facility] #64852, 162, cm, 06/19/21 15:40:00 EDT, Height, 86.3, kg, 09/29/20 15:30:00 EDT, Dry Weight Start Date: 07/10/21 Status: Ordered multivitamin with iron Multiple Vitamins with Iron oral tablet 1 tablet, By Mouth, Daily, # 30 tablet, 11 Refills, Maintenance, 04/17/22 7:51:00 EST, Tablet, [facility] #45132, 1 tablet By Mouth Daily, 162.56, cm, 04/16/22 16:00:00 EST, Height, 87.6, kg, 10/24/21 8:00:00 EDT, Dry Weight Start Date: 04/17/22 Status: Ordered Narcan 4 mg/0.1 mL nasal spray = 4 mg, Inhalation, Once, # 2 each, 1 Refills, Soft Stop, 10/29/20 12:23:00 EDT, [facility] #95103, Partial fill upon patient request if the prescription is for a schedule II opioid drug., 162, cm, 09/29/20 15:30:00 EDT, Height, 86.3, kg, 08... Start Date: 10/29/20 Status: Ordered ondansetron 4 mg oral tablet 1 tablet = 4 mg, By Mouth, Daily, PRN Nausea & Vomiting, # 10 tablet, 3 Refills, Maintenance, 04/16/22 17:07:00 EST, [facility] #95689, 162.56, cm, 04/16/22 16:00:00 EST, Height, 87.6, [...] each, 0 Refills, Maintenance, 06/04/20 16:46:00 EDT, [facility] #85697, OK to sub for any gallon prep, used as directed, 162.56, cm, 05/23/20 14:31:00 EDT, Height, 77, kg, 03/21/20 15:04:00 EST, Dry We... Start Date: 06/04/20 Status: Ordered Senna 8.6 mg oral tablet 1-3 tablet, By Mouth, Daily, for constipation, # 90 tablet, Refills 5, Tot. Refills 5, Maintenance,03/26/20 15:25:00 EST, Route to Pharmacy Electronically, [facility] #59417 Tablet, 162.56, cm, 03/21/20 15:01:00 EST, Height, [...] tablet, 5 Refills, Maintenance, 04/17/22 7:53:00 EST, [facility] #88512, 162.56, cm, 04/16/22 16:00:00 EST, Height, 87.6, kg, 10/24/21 8:00:00 EDT, Dry Weight Start Date: 04/17/22 Status: Ordered Suboxone 8 mg-2 mg Sublingual Film 2 film, Sublingual, Daily, dissolve under the tongue may fill less due 05/12/2022, # 14 film, 0 Refills, Maintenance, 05/12/22 2:02:00 EDT, Film, [facility], 2 film Sublingual Daily,x7 days,Instr:dissolve under the tongue; may fi... Start Date: 05/12/22 Stop Date: 05/19/22 Status: Ordered Suboxone 8 mg-2 mg Sublingual Film 2.5 film, Sublingual, Daily, dissolve under the tongue increase in dose Iveth [id number] coveringfor [place] due on/after 08/22/2021, # 35 film, 0 Refills, Maintenance, 08/22/21 9:27:00 EDT, Film,[facility], 2.5 film Subli... Start Date: 08/22/21 Stop Date: 09/05/21 Status: Ordered SUMAtriptan 25 mg oral tablet 1 tablet = 25 mg, By Mouth, Daily, PRN as needed for migraine headache, may repeat dose after 2 hours up to a maximum of 2, # 6 tablet, 1 Refills, Maintenance, 03/02/20 19:47:00 EST, Tablet, [facility] #23533, 162.56, cm, 01/04/20 9:40:00 ES... Start Date: 03/02/20 Status: Ordered zolpidem 5 mg oral tablet 1 tablet = 5 mg, By Mouth, Daily at bedtime, PRN as needed for sleep, # 30 tablet, 1 Refills, Maintenance, 05/16/22 22:14:00 EDT, [facility] #04598, 162.56, cm, 05/07/22 12:32:00 EST, Height, 87.6, [...] disorder Confirmed Active Opioid dependence Confirmed Active *[id number] Potato Bucker April Saavedra Confirmed Active Health care maintenance [...] tolerance, and QD need over. 2genotype 02/02: [id number] is only mutation detected 3death of sister, caring for mother w/ dementia 4repeat screening colonoscopy in 2020 Social History Social History Type Response Smoking Status Former smoker, quit more than 30 days ago entered on: 12/05/21 Sex Patient Care team information Care Team Personnel Name: Kahlil Sun MD Position: [facility] Primary Care Physician Member Role: PCP Address: Address: [address] [place] [address] Name: Sharri Prince Position: [facility] PCO Associate Professional Member Role: Lifetime Consulting Provider Care Team Related Persons Name: SHANITA MENDOZA Address: [address] [place] [address] Name: SHANITA MENDOZA [facility] Address: home [address] Name: ULICES PEARSON Name: ULICES ESPARZA Address: [place] [address] Name: LALA LI
--- OUTSIDE RECORDS SUMMARY | 2022-12-13 21:33 | XMS_ITS | Continuity of Care Document ---
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 Start Date: 03/30/19 Stop Date: 04/06/19 Status: Ordered Flonase 50 mcg/inh nasal spray 1 sprays, Nares, Both, 2 times a day, # 1 each, 0 Refills, Maintenance, 05/24/18 16:00:06 EDT, [place], 1 sprays Nares, Both 2 times a [...] 03/12/19 21:36:00 EST, Route to Pharmacy Electronically, [facility] #01069, dose increase from 5mg,162.56, cm, 03/08/19 14:34:00 EST, Height, 72.3, kg... Start Date: 03/12/19 Status: Ordered loratadine 10 mg oral tablet 10 mg, 1, tablet, By Mouth, Daily, PRN, # 30 tablet, Refills 3, Tot. Refills 3, Maintenance, allergy/itch, 05/12/18 14:45:33 EDT, Route to Pharmacy Electronically, [id number], [facility] Start Date: 05/12/18 Status: Ordered LORazepam 0.5 [...] 1 Refills, Maintenance, 03/30/19 15:49:00 EST, Tablet, [facility] #65997, 162.56, cm, 03/08/19 14:34:00 EST, Height, 72.3, [...] 12/05/15 14:17:14, Aerosol, Route to Pharmacy Electronically, [id number], [facility] Start Date: 12/05/15 Status: Ordered Senna 8.6 mg oral tablet 1-3 tablet, By Mouth, Daily, for constipation, # 90 tablet, Refills 5, Tot. Refills 5, Maintenance,02/17/18 15:12:45 EST, Route to Pharmacy Electronically, [id number], [facility] Start Date: 02/17/18 Status: Ordered SUMAtriptan [...] 2016 Active Migraine(Confirmed) Active Opioid dependence(Confirmed) Active *[id number]-[facility] Partn renee Saavedra(Confirmed) Active Health care maintenance(Confirmed) [...] tolerance, and QD need over. 2genotype 02/02: [id number] is only mutation detected 3death of sister, caring for mother w/ dementia 4repeat screening colonoscopy in 2020 Social History Social History Type Response Smoking Status Former smoker, quit more than 30 days ago entered on: 05/24/18 Sex
--- OUTSIDE RECORDS SUMMARY | 2022-12-13 21:33 | XMS_ITS | Continuity of Care Document ---
Author Name Unknown Organization [facility] ter Address [address] [place] [id number]- Care Team Providers Care Inspector Material Disposition Name Role Phone Kahlil Sun MD Primary Care Physician Encounter [facility] Date(s): 11/04/22 - 11/04/[address] [address]- Discharge Disposition: A-D/C Home Attending Physician: Edgar Enamorado MD Admitting Physician: Edgar Enamorado MD Referring Physician: Not on Staff, Referring [...] events reported or observed. 2Result Comment: #[facility], [facility] 3Result Comment: [facility] 4Result Comment: pharmacy 5Location History: [facility] 6Admin Note: vis 08/31/11 7Admin Note: ADMIN.BY RN 8Result Comment: [facility] 9Admin Note: Admin. by RN 10Admin Note: Admin. by RN 11Admin Note: Admin. by RN 12Admin Note: vis 06/15/15 13Admin Note: dose #6 (3rd in 2nd series) 14Admin Note: dose #5 15Admin Note: #3 16Admin Note: LITO [employer] 17Admin Note: ADMIN BEN, LILLIAN 18Admin Note: BY LEXI Agudelo 19Admin Note: [...] EST, Compound Start Date: 01/25/18 Status: Ordered acetaminophen 500 mg oral tablet 1 tablet = 500 mg, By Mouth, Every 4 hours, PRN as needed for pain, for 7 days, # 50 tablet, 0 Refills, Acute 11/11/22 10:19:00 EDT, 11/04/22 10:19:00 EDT, Tablet, [facility] #[id number], Partial fill upon patient request if the prescription is f... Start Date: 11/04/22 Stop Date: 11/11/22 Status: Ordered acyclovir 400 mg oral tablet 1 tablet = 400 mg, By Mouth, 2 times a day, # 10 tablet, 5 Refills, Maintenance, 01/08/21 18:41:00 EST, [facility] #[id number], 162, cm, 12/17/20 23:19:00 EDT, Height, 86.3, kg, 09/29/20 15:30:00 EDT, Dry Weight Start Date: 01/08/21 Stop Date: 02/07/21 Status: Ordered Albuterol (Eqv-ProAir HFA) 90 mcg/inh inhalation aerosol 2 puffs, Inhalation, Every 4 hours, PRN NEEDED FOR WHEEZING/SHORTNESS OF BREATH, USE WITH SPACERCHAMBER, # 8.5 Gm, 5 Refills, [facility] #[id number], 16, INHALE 2 PUFFS INTO LUNGS EVERY 4 HOURS NEEDED FOR WHEEZING/SHORTNESS OF BREATH. USE... Start Date: 11/13/20 Status: Ordered albuterol 0.083% inhalation solution 3 mL = 2.5 mg, Inhalation, Every 6 hours, PRN Wheezing/Shortness of Breath, # 60 each, 0 Refills, Maintenance, 06/07/20 12:51:00 EDT, Solution, [facility] #[id number], 162.56, cm, 05/23/20 14:31:00 EDT, Height, 77, [...] Gm, 2 Refills, Maintenance, 08/30/22 11:09:00 EDT, [facility] #[id number], 1 applic... Start Date: 08/30/22 Status: Ordered benzoyl peroxide 2.5% topical gel 1 application, Topically, 2 times a day, keep away from eyes and mucous membranes. clean affected area before application. Start daily and increase to twice a day if tolerated., # 60 Gm, 3 Refills, Maintenance, 09/08/22 22:51:00 EDT, [facility]... Start Date: 09/08/22 Status: Ordered Biktarvy oral tablet 1 tablet, By Mouth, Daily, # 30 tablet, 12 Refills, Maintenance, 04/17/22 7:54:00 EST, [facility] #[id number], 1 tablet By Mouth Daily, 162.56, cm, 04/16/22 16:00:00 EST, Height, 87.6, kg, 10/24/21 8:00:00 EDT, Dry Weight Start Date: 04/17/22 Status: Ordered Biktarvy oral tablet See Instructions, TAKE 1 TABLET BY MOUTH DAILY, # 90 tablet, 0 Refills, Maintenance, 07/15/22 13:50:00 EDT, [facility] #[id number], 90, TAKE 1 TABLET BY MOUTH DAILY, [...] 1 Refills, Maintenance, 07/10/21 18:35:00 EDT, Tablet, [facility] #[id number], Partial fill upon patient request if the [...] 08/12/22 15:06:00 EDT, Route to Pharmacy Electronically, [facility] #[id number], 162.56, cm, 07/30/22 10:55:00 EDT, Height, 79.... Start Date: 08/12/22 Status: Ordered Colace Clear 50 mg oral capsule 1 capsule = 50 mg, By Mouth, 2 times a day, PRN as needed for constipation, # 60 capsule, 0 Refills, Maintenance, 12/05/21 15:09:00 EDT, [facility] #[id number], Partial fill upon patient requestif the prescription is for a schedule II opioid nhi... Start Date: 12/05/21 Status: Ordered diclofenac 1% topical gel = 2 Gm, Topically, 4 times a day, PRN for pain, not to exceed: 10 gm/day, # 100 Gm, 1 Refills, Maintenance, 05/29/21 16:52:00 EDT, Gel, [facility], Partial fill upon patient request if the prescription is for a schedule II opioid... Start Date: 05/29/21 Status: Ordered Dulera 200 mcg-5 mcg/inh inhalation aerosol 2 puffs, Inhalation, 2 times a day, # 1 each, 3 Refills, Maintenance, 01/28/21 16:44:00 EST, Aerosol, [facility], STOP FLOVENT, 2 puffs Inhalation 2 times a day,x30 days, 162, cm,01/28/21 16:02:00 EST, Height, 86.3, kg, 09/29/20 1... Start Date: 01/28/21 Stop Date: 05/28/21 Status: Ordered escitalopram 20 mg oral tablet 1 tablet = 20 mg, By Mouth, Daily, # 90 tablet, 3 Refills, Maintenance, 11/04/22 16:35:00 EDT, Tablet, [facility] #[id number], 162.56, cm, 10/20/22 7:18:00 EDT, Height, 79.54, kg, 07/30/22 10:55:00 EDT, Dry Weight Start Date: 11/04/22 Status: Ordered FENTanyl Inj 75 mcg, Injection, IV Push Slowly, Once, STAT, 11/04/22 8:24:00 EDT, Stop date 11/04/22 8:24:00 EDT Start Date: 11/04/22 Stop Date: 11/04/22 Status: Completed ferrous fumarate 324 mg oral tablet 1 tablet = 324 mg, By Mouth, Every other day, # 45 tablet, 0 Refills, Maintenance, 07/31/22 11:19:00 EDT, Tablet, [facility] #[id number], Partial fill upon patient request if the [...] Gm, 5 Refills, Maintenance, 07/19/19 15:19:00 EDT, [place], [facility] #[id number], 2 sprays Nares, Both Daily in AM,x30 [...] 09/24/22 17:20:00 EDT, Route to Pharmacy Electronically, [facility] #[id number], 162.56, cm, 09/17/22 12:56:00 EDT, Heigh... Start [...] 1 each, Maintenance, covering for [facility] Blood pressure monitor neededto monitor [...] 2 Refills, Maintenance, 07/30/22 12:17:00 EDT, Syrup, [facility] #[id number], 30 mL By Mouth 4 times a day, 162.56, cm, 07/30/22 10:55:00 EDT,Height, 79.54, kg, 07/30/22 10:55:00 EDT, Dry Weight Start Date: 07/30/22 Status: Ordered losartan 100 mg oral tablet 1 tablet, By Mouth, Daily, # 30 tablet, 5 Refills, [facility] #[id number], 162, cm, 10/09/21 16:19:00 EDT, Height, 86.3, kg, 09/29/20 15:30:00 EDT, Dry Weight Start Date: 10/20/21 Status: Ordered meclizine 25 mg oral tablet 1 tablet = 25 mg, By Mouth, 2 times a day, # 30 tablet, 1 Refills, Maintenance, 07/10/21 17:25:00 EDT, Tablet, [facility] #[id number], 162, cm, 06/19/21 15:40:00 EDT, Height, 86.3, kg, 09/29/20 15:30:00 EDT, Dry Weight Start Date: 07/10/21 Status: Ordered multivitamin with iron Multiple Vitamins with Iron oral tablet 1 tablet, By Mouth, Daily, # 30 tablet, 11 Refills, Maintenance, 04/17/22 7:51:00 EST, Tablet, [facility] #[id number], 1 tablet By Mouth Daily, 162.56, cm, 04/16/22 16:00:00 EST, Height, 87.6, kg, 10/24/21 8:00:00 EDT, Dry Weight Start Date: 04/17/22 Status: Ordered Narcan 4 mg/0.1 mL nasal spray = 4 mg, Inhalation, Once, # 2 each, 1 Refills, Soft Stop, 10/29/20 12:23:00 EDT, [facility] #[id number], Partial fill upon patient request if the prescription is for a schedule II opioid drug., 162, cm, 09/29/20 15:30:00 EDT, Height, 86.3, kg, 08... Start Date: 10/29/20 Status: Ordered ondansetron 4 mg oral tablet 1 tablet = 4 mg, By Mouth, Daily, PRN Nausea & Vomiting, # 10 tablet, 3 Refills, Maintenance, 06/25/22 17:28:00 EDT, [facility] #[id number], 162.56, cm, 06/25/22 16:16:00 EDT, Height, 87.6, kg, 10/24/21 8:00:00 EDT, Dry Weight Start Date: 06/25/22 Status: Ordered oxyCODONE 5 mg oral tablet 5 mg, 1, tablet, By Mouth, Every 6 hours, PRN, for 2 days, # 5 tablet, Refills 0, Tot. Refills 0, Acute 11/06/22 10:19:00 EDT, for pain, 11/04/22 10:19:00 EDT, Route to Pharmacy Electronically, [facility] #[id number], Partial fill upon patient re... Start Date: 11/04/22 Stop Date: 11/06/22 Status: Ordered pantoprazole 20 mg oral delayed [...] 2 Refills, Maintenance, 08/21/22 17:50:00 EDT, Tablet, [facility] #[id number], this is correct dose. 200mg Rx just sent by mistake., 162.56, cm, 08/20/22 13:54:00 EDT, Height, 79.54, kg, 06... Start Date: 08/21/22 Status: Ordered Senna 8.6 mg oral tablet 1-3 tablet, By Mouth, Daily, for constipation, # 90 tablet, Refills 5, Tot. Refills 5, Maintenance,03/26/20 15:25:00 EST, Route to Pharmacy Electronically, [facility] #[id number] Tablet, 162.56, cm, 03/21/20 15:01:00 EST, Height, [...] 09/24/22 17:20:00 EDT, Route to Pharmacy Electronically, [facility] #[id number], 162.56, cm, 09/17/22 12:56:00 EDT, [facility]... Start Date: 09/24/22 Status: Ordered Suboxone 8 mg-2 mg Sublingual Film 2 film, Sublingual, Daily, [id number] Dino dissolve under the tongue may fill less due 10/26/2022,# 28 film, 0 Refills, Maintenance, 10/15/22 16:24:00 EDT, Film, [facility], 2 film Sublingual Daily,x14 days,Instr:[id number] Li... Start Date: 10/15/22 Stop Date: 10/29/22 Status: Ordered SUMAtriptan 25 mg oral tablet 1 tablet = 25 mg, By Mouth, Daily, PRN as needed for migraine headache, may repeat dose after 2 hours up to a maximum of 2, # 6 tablet, 1 Refills, Maintenance, 03/02/20 19:47:00 EST, Tablet, [facility] #[id number], 162.56, cm, 01/04/20 9:40:00 ES... Start Date: 03/02/20 Status: Ordered zolpidem 5 mg oral tablet 0.5 tablet = 2.5 mg, By Mouth, Daily at bedtime, PRN as needed for sleep, Note decrease in dose., #14 tablet, 1 Refills, Maintenance, 09/10/22 17:51:00 EDT, [facility] #[id number], 09/10/22, 162.56, cm, 08/20/22 13:54:00 EDT, Height, [...] use disorder Confirmed Active Pancytopenia Confirmed Active *[id number] Domain Architect April Saavedra Confirmed Active Portal hypertensive gastropathy [...] tolerance, and QD need over. 2genotype 02/02: EU530R is only mutation detected 3death of sister, caring for mother w/ dementia 4repeat screening colonoscopy in 2020 Results Radiology Reports * Exam Date Time Procedure Performing Provider Status 11/04/22 10:25 AM Hand Min 3 Views Left Satnam Watson; Auth (Verified) Notes: (Hand Min 3 Views Left) Reason For Exam: with Pain;Trauma RESULT: Hand Min 3 Views Left Hand Min 3 Views Left, 3 views HX OF PRESENT ILLNESS: Pt presented with left hand abrasions due to fall on glass, bleeding controlled. COMPARISON: None. FINDINGS: No acute displaced fractures or bone lesions. No arthritic changes. Mild soft tissue swelling overlying the proximal phalanx of the index finger with a few lucencies near represent soft tissue lacerations. A similar appearance is seen anterior to the proximal phalanxof the 3rd digit. IMPRESSION: No acute osseous process. Suspected lacerations and soft tissue swelling/hematomas of the proximal phalanges of the 2nd and 3rd digits. I have personally reviewed the images and I agree with this report. WSN: [id number] Ordering Physician: Taz Owens Dictated By: Bryan Almanzar MD Dictated Date/Time: 11/04/22 10:58 a Reviewed By: Mee Canseco MD Signed By: Mee Canseco MD Signed Date/Time: 11/04/22 11:03 am Transcribed By: ELIAZAR Transcribed Date/Time: 11/04/22 10:54 am Vital Signs Most recent to oldest [Reference Range]: 1 2 3 Oxygen Saturation [94-100 %] 95 % (11/04/22 9:16 AM) 95 % (11/04/22 7:41 AM) 95 % (11/04/22 6:25 AM) Pulse Rate [55-90 bpm] 91 bpm *H* (11/04/22 9:16 AM) 84 bpm (11/04/22 7:41 AM) 97 bpm *H* (11/04/22 6:25 AM) Blood Pressure [90-138/55-84 mm Hg] 119/89mm Hg (11/04/22 9:16 AM) 115/81mm Hg (11/04/22 7:41 AM) 119/83mm Hg (11/04/22 6:25 AM) Respiratory Rate [16-30 br/min] 16 br/min (11/04/22 9:16 AM) 18 br/min (11/04/22 8:26 AM) 16 br/min (11/04/22 7:41 AM) Temperature [96.8-100.4 DegF] 97.1 DegF (11/04/22 6:25 AM) Mode of Delivery (Oxygen) Room air (11/04/22 9:16 AM) Room air (11/04/22 7:41 AM) Room air (11/04/22 6:25 AM) Temperature Route Oral (11/04/22 6:25 AM) Social History Social History Type Response Smoking Status Former smoker, quit more than 30 days ago entered on: 12/05/21 Sex Consult note * Olivier Boudreaux: PERFORM, MODIFY, MODIFY, MODIFY Event Display: Consultation Note Authored Date: [id number] Patient: ??ELADIO GARCIA ? Age:??47 Years?Sex:??Female?:??1975?? Chief Complaint/Reason for Consult Left??palmar??venous bleed History of Present Illness Orthopedic consultation was requested by??Taz Owens PA-C??in [facility] emergency department under the supervision of Dr. Enamorado ?? Eladio is a 47-year-old female??with a past medical history of??HIV??on [place], GERD, asthma, ascites,??cirrhosis of the liver,??hypertension,??and iron deficiency anemia who presented to [facility] this morning after after cutting her left palm from a broken water glass.?? The patient stated that she got out of bed to grab a glass of water when she accidentally tripped and fell directly on the water glass in her left hand which caused a laceration to the palmar aspect of her left hand.?She began to have significant pain in the left palm and noted significant pooling of blood.?? She stated she then put pressure on the wound and came to the ED for further evaluation.?? She denies any head strike or LOC at this time.?? Orthopedics was consulted for further treatment recommendations. Review of Systems Patient is well-developed and in no acute distress. ??Alert and cooperative with examination. ??Mood and affect appropriate. ??Examined on a stretcher in the emergency department. ??Denies fevers, chills or sweats. ??Denies shortness of breath and chest pain. ??Denies other injuries or painful joints. Physical Exam Vitals & Measurements T:??97.1?F?? HR:??84??(Peripheral)?? RR:??18?? BP:??115/81?? SpO2:??95%?? Patient is well-developed and in moderate distress. ??Alert and cooperative with examination. ??Mood and affect appropriate. ??Alert and oriented x4. ??Examined on a stretcher in the emergency department.? HEENT: Atraumatic and normocephalic Cardiac: Per ED provider Pulmonary: Per ED provider Abdomen: Soft, nontender, nondistended. ?? Right upper extremity: Full, supple, nonpainful range of motion of shoulder, elbow, wrist and digits. ??No tenderness to palpation. ??Radial pulse 2+. Grossly neurovascularly intact radial, median, ulnar nerve distributions. ?? Left upper extremity: Full, supple, nonpainful range of motion of shoulder and elbow.??No tenderness to palpation about the same. ??There is obvious dried blood??noted??about the patient's??forearm and hand. ??There is approximately a??3 cm??laceration??noted on the??proximal hypothenar region??of the hand. ??No foreign bodies??can be noted??when examining the laceration. ??Limited active range of motion of the??wrist and digits secondary to??laceration and pain.?? Patient is able to??perform??a thumbs up, okay sign,??abduction and abduction. ??Radial pulse 2+. ??Grossly neurovascularly intact radial, median, ulnar nerve distributions.? Procedure:??The patient??was given adequate??pain control??and a tourniquet??was applied??to thepatient's left brachium. The incision was then reevaluated??and??a??local block using??approximately 3 cc of??2% lidocaine??with epi was performed. ??The laceration was then washed out with hydrogen peroxide??followed by??a mixture of normal saline and Betadine. Three??rvsebf-[id number]-rlpak??sutures werethen placed??over the laceration. ??Tourniquet was then??deflated??at approximately 25 minutes and a dressing??was placed over the laceration??and pressure was held??for approximately 15 to 20 minutes. A pressure dressing was then applied using 4x4 gauze followed by karmen. Assessment/Plan Left palmar venous bleed ?? Plan: No acute??hand??surgical intervention needed at this time.?? The patient's laceration??wasreapproximated with 3??[id number]-wg-ciljl??sutures.?? When reevaluated??after??wound closure and??15 to 20 minutes of pressure/patient hemostasis was obtained.??Patient??had??full sensation??to the radial, ulnar,??median??nerve distributions??and had a palpable??2+ radial pulse. ??The patient may follow-up??with her PCP??or??return??to [facility] in??approximately 14 days for suture removal. ?? Case discussed with Dr. Lo Problem List/Past Medical History Ongoing *[id number] Domain Architect April Saavedra Abdominal bloating Acid reflux Acne Alcohol use disorder, severe, in early remission, dependence Ascites Asthma Breast lump in upper inner quadrant Cervicovaginal cytology: Low grade squamous intraepithelial lesion Cirrhosis of liver, hx of hepatitis C treated 2013 Diabetes mellitus screening Encounter for diagnostic colonoscopy due to change in bowel habits Epigastric pain Excision of condyloma acuminatum- anal Gastropathy H/O heartburn H/O nausea H/O syphilis - serofast 1:1 Health care maintenance Hepatic encephalopathy syndrome Herpes simplex, genital, & L buttock Herpes zoster HIV-AIDS-. ART hx in 01/19/18 note. Hypertension Insomnia Iron deficiency anemia Lumbosacral pain, chronic Migraine Obese class I Opioid use disorder Pancytopenia Portal hypertensive gastropathy Psychological stress Rectal pain Routine screening for STI (sexually transmitted infection) Screening for tuberculosis Secondary oligomenorrhea Straining with stools TMJ - click Tubular adenoma of colon UTI symptoms Varicose veins of both lower extremities Vertigo, migrainous, and possible BPPV hx Vitamin D deficiency Procedure/Surgical History Esophagogastroduodenoscopy and biopsy: 10/24/21 Colonoscopy: 06/19/20 Esophagogastroduodenoscopy and biopsy: 04/11/18 Colonoscopy, flexible, proximal to splenic flexure; diagnostic, with or without collection of specimen(s) by brushing or washing, with or without colon decompression (separate procedure): 03/29/17 Upper gastrointestinal endoscopy including esophagus, stomach, and either the duodenum and/or jejunum as appropriate; diagnostic, with or without collection of specimen(s) by brushing or washing (separate procedure): 09/30/16 Upper gastrointestinal endoscopy including esophagus, stomach, and either the duodenum and/or jejunum as appropriate; diagnostic, with or without collection of specimen(s) by brushing or washing (separate procedure): 05/08/13 Upper gastrointestinal endoscopy including esophagus, stomach, and either the duodenum and/or jejunum as appropriate; diagnostic, with or without collection of specimen(s) by brushing or washing (separate procedure): 11/30/11 Colonoscopy Allergies aspirin??(facial edema and sob) Levaquin Ziagen amitriptyline??(Mental status) nevirapine Social History Currently lives at home??with her partner Right hand dominant female 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 Drinks alcohol occasionally, drinks??this morning before coming to [facility] Denies any tobacco use Denies any??illicit drug use Family History Family history: Denies history of adverse reaction to anesthesia, bleeding dyscrasias, DVT. Note * Graciela WALKER, Taz Brown: PERFORM Event Display: Patient Education Leaflets Authored Date: [id number] Hand Laceration with Possible Nerve Injury, Stitches or Skin Glue ?? [id number] Hand Laceration with Possible Nerve Injury, Stitches or Skin Glue A laceration is a cut. It's possible for a laceration to the hand to injure a nerve. This type of injury can cause numbness, loss of feeling, and weakness in the hand, finger, or thumb. In some cases, a simple bruise or swelling around the nerve will cause numbness or tingling for a few days. After this, normal feeling and function return. If the feeling doesn???t return within 10 days, the nerve has likely been cut. In that case, a specialist will look at your injury. They will determine if a nerve repair would help. A nerve repair is a surgery that locates the ends of the nerve and sews them together. Your healthcare provider may close a deep cut with stitches or skin glue. They'll tell you if they're using stitches or skin glue. They may use skin glue if your cut has smooth edges, isn't gaping open, and isn't infected. Skin glue is less painful than stitches. In some cases, your provider may stitch a lower layer of skin before putting on the skin glue. The skin glue closes the cut in a few minutes. It also provides a water-resistant cover. You won't need a bandage. Skin glue peels off on its own in 5 to 10 days. Don't pick at it and peel it off sooner. Most skin wounds heal within 10 days. You may also need a tetanus shot. Your provider will give you this if you have no record of a shot,and the type of cut may lead to tetanus. Home care Your healthcare provider may prescribe an antibiotic cream or ointment. This is to help prevent infection. Follow all instructions for using this medicine. If you have pain, you can take pain medicine as advised by your provider. General care ??? Follow your healthcare provider???s directions on how to care for the cut ??? If your cut was over a joint or on the finger, you may be given a splint to keep the area still and prevent the wound from reopening after it was repaired. It's OK to remove the splint for a short time tocare for the cut. ??? Wash your hands with soap and clean, running water before and after caring for the cut. This is to help prevent infection. ??? Leave the original bandage in place for 24 hours. Replace it if it becomes wet or dirty. After 24 hours, change it once a day or as directed. ??? For stitches. Clean the wound daily. First, remove the bandage. Then wash the area gently with soap and clean, running water, or as advised by your healthcare provider. Use a wet cotton swab to loosen andremove any blood or crust that forms. Don???t clean the wound with peroxide. After cleaning, put a thin layer of antibiotic ointment on the cut if advised. Then put on a new bandage. ??? For skin glue. Don???t put liquid, ointment, or cream on the wound while the glue is in place. Don't do activities that cause heavy sweating. Protect the wound from sunlight. The glue should peel off in 5 to 10 days. If it hasn't fallen off after 10 days, you can take it off yourself. Put mineral oil or petroleum jelly on a cotton ball and gently rub the glue until it's removed. ??? Check your wound daily forsigns of infection. An infection can occur even with correct care. Signs of infection include redness, warmth, increased pain, and thick fluid leaking from the cut. ??? Don???t scratch, rub, or pick at the area. ??? Protect the wound from prolonged sunshine or tanning lamps. ??? Don't soak the cut in water. This can delay healing. Shower or take sponge baths instead of tub baths. Don???t go swimming. ??? If the area gets wet, gently pat it dry with a clean cloth. Replace the wet bandage with a dry one. ?? Follow-up care Follow up with your healthcare provider as advised. It's important for your healthcare provider to examine you again to find out if nerve function has recovered. If not, you may need a nerve repair. Your provider will take out the stitches within 7 to 14 days. If skin glue was used, it will fall off by itself in 5 to 10 days. ?? When to get medical advice Call your healthcare provider right away if any of the following occur: ??? Fever of 100.4??F (38??C) or higher, or as advised by your provider ??? Chills ??? Increasing pain in the wound ??? Redness, swelling, or pus coming from the wound ??? Stitches come apart or fall out before your next appointment ??? Surgical tape that falls off before 7 days, or wound edges that reopen ??? Bleeding that is not controlled by direct pressure ??? New weakness or dropping of a finger or thumb ?? Last Reviewed Date: 2021 ?? 5017-6148 [employer]. All rights reserved. This information is not intended as a substitute for professional medical care. Always follow your healthcare professional's instructions. ?? Patient Care team information Care Team Personnel Name: Kahlil Sun MD Position: [facility] Physician - Primary Care Member Role: PCP Address: Address: [address] [place] [address] Name: Sharri Prince Position: [facility] PCO Associate Professional Member Role: [employer] Provider Name: Taz Gaines Position: [facility] Associate Professional Member Role: ED Physician Dairy Lab Technician Address: Address: [address] [place] [id number]- Name: Edgar Enamorado MD Position: [facility] ED Medicine MD Member Role: Admitting Physician Address: Address: [address] [place], [place] [id number] Name: Mary Jaquez Position: [facility] TA [facility] Member Role: School Age Lead Teacher Name: Darlene Gauthier RN Position: [facility] RN W/OE and Tasks Member Role: Patient Care Provider Care Team Related Persons Name: SHANITA MENDOZA Address: home [address] [place] [id number] Name: SHANITA MENDOZA [facility] Address: home [address] Name: ULICES PEARSON Name: ULICES ESPARZA Address: [place] [address] Name: LALA LI
--- OUTSIDE RECORDS SUMMARY | 2022-12-13 21:33 | XMS_ITS | Continuity of Care Document ---
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 2Result Comment: #2, [facility] 3Result Comment: [facility] 4Result Comment: pharmacy 5Location History: [facility] 6Admin Note: vis 08/31/11 7Admin Note: ADMIN.BY RN 8Result Comment: [facility] 9Admin Note: Admin. by RN 10Admin Note: Admin. by RN 11Admin Note: Admin. 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 USE... Start Date: 11/13/20 Status: Ordered albuterol 0.083% inhalation solution 3 mL = 2.5 mg, Inhalation, Every 6 hours, PRN Wheezing/Shortness of Breath, # 60 each, 0 Refills, Maintenance, 06/07/20 12:51:00 EDT, Solution, [facility] #64730, 162.56, cm, 05/23/20 14:31:00 EDT, Height, 77, [...] tablet, 12 Refills, Maintenance, 04/17/22 7:54:00 EST, [facility] #[id number], 1 tablet By Mouth Daily, 162.56, cm, 04/16/22 16:00:00 EST, Height, 87.6, kg, 10/24/21 8:00:00 EDT, Dry Weight Start Date: 04/17/22 Status: Ordered Biktarvy oral tablet See Instructions, TAKE 1 TABLET BY MOUTH DAILY, # 90 tablet, 0 Refills, Maintenance, 07/15/22 13:50:00 EDT, [facility] #[id number], 90, TAKE 1 TABLET BY MOUTH DAILY, [...] 1 Refills, Maintenance, 07/10/21 18:35:00 EDT, Tablet, [facility] #72157, Partial fill upon patient request if the prescription is for a schedule II opioid drug., 162, cm, 06/19/21 15:40:00 EDT... Start Date: 07/10/21 Status: Ordered cloNIDine 0.1 mg oral tablet 1, tablet, By Mouth, 3 times a day, PRN, # 270 tablet, Refills 0, Tot. Refills 0, Maintenance, NEEDED FOR ANXIETY, 05/13/22 16:45:00 EDT, Route to Pharmacy Electronically, [facility] #[id number], 162.56, cm, 05/07/22 12:32:00 EST, Height, 87.6... Start Date: 05/13/22 Status: Ordered Colace Clear 50 mg oral capsule 1 capsule = 50 mg, By Mouth, 2 times a day, PRN as needed for constipation, # 60 capsule, 0 Refills, Maintenance, 12/05/21 15:09:00 EDT, [facility] #[id number], Partial fill upon patient requestif the prescription is for a schedule II opioid nhi... Start Date: 12/05/21 Status: Ordered diclofenac 1% topical gel = 2 Gm, Topically, 4 times a day, PRN for pain, not to exceed: 10 gm/day, # 100 Gm, 1 Refills, Maintenance, 05/29/21 16:52:00 EDT, Gel, [facility], Partial fill upon patient request if the prescription is for a schedule II opioid... Start Date: 05/29/21 Status: Ordered Dulera 200 mcg-5 mcg/inh inhalation aerosol 2 puffs, Inhalation, 2 times a day, # 1 each, 3 Refills, Maintenance, 01/28/21 16:44:00 EST, Aerosol, [facility], STOP FLOVENT, 2 puffs Inhalation 2 times a day,x30 days, 162, cm,01/28/21 16:02:00 EST, Height, 86.3, kg, 09/29/20 1... Start Date: 01/28/21 Stop Date: 05/28/21 Status: Ordered escitalopram 10 mg oral tablet 1 tablet = 10 mg, By Mouth, Daily, # 30 tablet, 11 Refills, Maintenance, 04/16/22 16:59:00 EST, Tablet, [facility] #[id number], Partial fill upon patient request if the [...] Gm, 5 Refills, Maintenance, 07/19/19 15:19:00 EDT, [place], [facility] #[id number], 2 sprays Nares, Both Daily in AM,x30 [...] Replace Required Details, Route to Pharmacy Electronically, [facility] #[id number], 162.56, cm,... Start Date: 11/27/21 Status: Ordered [...] Instructions, # 1 each, Maintenance, covering for [facility] Blood pressure monitor neededto monitor [...] 2 Refills, Maintenance, 06/25/22 18:17:00 EDT, Syrup, [facility] #[id number], 30 mL By Mouth 2 times a day, 162.56, cm, 06/25/22 16:16:00 EDT,Height, 87.6, kg, 10/24/21 8:00:00 EDT, Dry Weight Start Date: 06/25/22 Status: Ordered losartan 100 mg oral tablet 1 tablet, By Mouth, Daily, # 30 tablet, 5 Refills, [facility] #11034, 162, cm, 10/09/21 16:19:00 EDT, Height, 86.3, kg, 09/29/20 15:30:00 EDT, Dry Weight Start Date: 10/20/21 Status: Ordered meclizine 25 mg oral tablet 1 tablet = 25 mg, By Mouth, 2 times a day, # 30 tablet, 1 Refills, Maintenance, 07/10/21 17:25:00 EDT, Tablet, [facility] #62736, 162, cm, 06/19/21 15:40:00 EDT, Height, 86.3, kg, 09/29/20 15:30:00 EDT, Dry Weight Start Date: 07/10/21 Status: Ordered multivitamin with iron Multiple Vitamins with Iron oral tablet 1 tablet, By Mouth, Daily, # 30 tablet, 11 Refills, Maintenance, 04/17/22 7:51:00 EST, Tablet, [facility] #02347, 1 tablet By Mouth Daily, 162.56, cm, 04/16/22 16:00:00 EST, Height, 87.6, kg, 10/24/21 8:00:00 EDT, Dry Weight Start Date: 04/17/22 Status: Ordered Narcan 4 mg/0.1 mL nasal spray = 4 mg, Inhalation, Once, # 2 each, 1 Refills, Soft Stop, 10/29/20 12:23:00 EDT, [facility] #23987, Partial fill upon patient request if the prescription is for a schedule II opioid drug., 162, cm, 09/29/20 15:30:00 EDT, Height, 86.3, kg, 08... Start Date: 10/29/20 Status: Ordered ondansetron 4 mg oral tablet 1 tablet = 4 mg, By Mouth, Daily, PRN Nausea & Vomiting, # 10 tablet, 3 Refills, Maintenance, 06/25/22 17:28:00 EDT, [facility] #46714, 162.56, cm, 06/25/22 16:16:00 EDT, Height, 87.6, [...] each, 0 Refills, Maintenance, 06/04/20 16:46:00 EDT, [facility] #15304, OK to sub for any gallon prep, used as directed, 162.56, cm, 05/23/20 14:31:00 EDT, Height, 77, kg, 03/21/20 15:04:00 EST, Dry We... Start Date: 06/04/20 Status: Ordered Senna 8.6 mg oral tablet 1-3 tablet, By Mouth, Daily, for constipation, # 90 tablet, Refills 5, Tot. Refills 5, Maintenance,03/26/20 15:25:00 EST, Route to Pharmacy Electronically, [facility] #36423 Tablet, 162.56, cm, 03/21/20 15:01:00 EST, Height, [...] tablet, 5 Refills, Maintenance, 04/17/22 7:53:00 EST, [facility] #55393, 162.56, cm, 04/16/22 16:00:00 EST, Height, 87.6, kg, 10/24/21 8:00:00 EDT, Dry Weight Start Date: 04/17/22 Status: Ordered Suboxone 8 mg-2 mg Sublingual Film 2 film, Sublingual, Daily, [id number] Orosi dissolve under the tongue may fill less due 07/21/2022,# 18 film, 0 Refills, Maintenance, 07/21/22 8:28:00 EDT, Film, [facility], 2 film Sublingual Daily,x9 days,Instr:[id number] Linc... Start Date: 07/21/22 Stop Date: 07/30/22 Status: Ordered SUMAtriptan 25 mg oral tablet 1 tablet = 25 mg, By Mouth, Daily, PRN as needed for migraine headache, may repeat dose after 2 hours up to a maximum of 2, # 6 tablet, 1 Refills, Maintenance, 03/02/20 19:47:00 EST, Tablet, [facility] #[id number], 162.56, cm, 01/04/20 9:40:00 ES... 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 2genotype 02/02: [id number] is only mutation detected 3death of sister, caring for mother w/ dementia 4repeat screening colonoscopy in 2020 Social History Social History Type Response Smoking Status Former smoker, quit more than 30 days ago entered on: 12/05/21 Sex Patient Care team information Care Team Personnel Name: Kahlil Sun MD Position: [facility] Physician - Primary Care Member Role: PCP Address: Address: [address] [place] [address] Name: Sharri Prince Position: [facility] PCO Associate Professional Member Role: Lifetime Consulting Provider Care Team Related Persons Name: SHANITA MENDOZA Address: home [address] [place] [address] Name: SHANITA MENDOZA Address: home [address] Name: ULICES PEARSON Name: ULICES ESPARZA Address: [place] [address] Name: LALA LI
--- OUTSIDE RECORDS SUMMARY | 2022-12-13 21:34 | XMS_ITS | Continuity of Care Document ---
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 2Result Comment: #2, [facility] 3Result Comment: [facility] 4Result Comment: pharmacy 5Location History: [place] 6Admin Note: vis 08/31/11 7Admin Note: ADMIN.BY RN 8Result Comment: [facility] 9Admin Note: Admin. by RN [...] tablet, 5 Refills, Maintenance, 01/08/21 18:41:00 EST, [facility] #[id number], 162, cm, 12/17/20 23:19:00 EDT, Height, 86.3, kg, 09/29/20 15:30:00 EDT, Dry Weight Start Date: 01/08/21 Stop Date: 02/07/21 Status: Ordered Albuterol (Eqv-ProAir HFA) 90 mcg/inh inhalation aerosol 2 puffs, Inhalation, Every 4 hours, PRN NEEDED FOR WHEEZING/SHORTNESS OF BREATH, USE WITH SPACERCHAMBER, # 8.5 Gm, 5 Refills, [facility] #98476, 16, INHALE 2 PUFFS INTO LUNGS EVERY 4 HOURS NEEDED FOR WHEEZING/SHORTNESS OF BREATH. USE... Start Date: 11/13/20 Status: Ordered albuterol 0.083% inhalation solution 3 mL = 2.5 mg, Inhalation, Every 6 hours, PRN Wheezing/Shortness of Breath, # 60 each, 0 Refills, Maintenance, 06/07/20 12:51:00 EDT, Solution, [facility] #[id number], 162.56, cm, 05/23/20 14:31:00 EDT, Height, 77, [...] 2 Refills, Maintenance, 08/30/22 11:09:00 EDT, Gel, [facility] #68755, 1 applic... Start Date: 08/30/22 Status: Ordered Biktarvy oral tablet 1 tablet, By Mouth, Daily, # 30 tablet, 12 Refills, Maintenance, 04/17/22 7:54:00 EST, [facility] #16708, 1 tablet By Mouth Daily, 162.56, cm, 04/16/22 16:00:00 EST, Height, 87.6, kg, 10/24/21 8:00:00 EDT, Dry Weight Start Date: 04/17/22 Status: Ordered Biktarvy oral tablet See Instructions, TAKE 1 TABLET BY MOUTH DAILY, # 90 tablet, 0 Refills, Maintenance, 07/15/22 13:50:00 EDT, [facility] #37542, 90, TAKE 1 TABLET BY MOUTH DAILY, [...] 1 Refills, Maintenance, 07/10/21 18:35:00 EDT, Tablet, [facility] #52080, Partial fill upon patient request if the prescription is for a schedule II opioid drug., 162, cm, 06/19/21 15:40:00 EDT... Start Date: 07/10/21 Status: Ordered cloNIDine 0.1 mg oral tablet 1, tablet, By Mouth, 3 times a day, PRN, # 90 tablet, Refills 11, Tot. Refills 11, Maintenance, NEEDED FOR ANXIETY, 08/12/22 15:06:00 EDT, Route to Pharmacy Electronically, [facility] #[id number], 162.56, cm, 07/30/22 10:55:00 EDT, Height, 79.... Start Date: 08/12/22 Status: Ordered Colace Clear 50 mg oral capsule 1 capsule = 50 mg, By Mouth, 2 times a day, PRN as needed for constipation, # 60 capsule, 0 Refills, Maintenance, 12/05/21 15:09:00 EDT, [facility] #11637, Partial fill upon patient requestif the prescription is for a schedule II opioid nhi... Start Date: 12/05/21 Status: Ordered diclofenac 1% topical gel = 2 Gm, Topically, 4 times a day, PRN for pain, not to exceed: 10 gm/day, # 100 Gm, 1 Refills, Maintenance, 05/29/21 16:52:00 EDT, Gel, [facility], Partial fill upon patient request if the prescription is for a schedule II opioid... Start Date: 05/29/21 Status: Ordered Dulera 200 mcg-5 mcg/inh inhalation aerosol 2 puffs, Inhalation, 2 times a day, # 1 each, 3 Refills, Maintenance, 01/28/21 16:44:00 EST, Aerosol, [facility], STOP FLOVENT, 2 puffs Inhalation 2 times a day,x30 days, 162, cm,01/28/21 16:02:00 EST, Height, 86.3, kg, 09/29/20 1... Start Date: 01/28/21 Stop Date: 05/28/21 Status: Ordered escitalopram 20 mg oral tablet 1 tablet = 20 mg, By Mouth, Daily, # 90 tablet, 0 Refills, Maintenance, 07/30/22 12:03:00 EDT, Tablet, [facility] #42657, Partial fill upon patient request if the prescription is for a schedule II opioid drug., 162.56, cm, 07/30/22 10:55:00... Start Date: 07/30/22 Status: Ordered ferrous fumarate 324 mg oral tablet 1 tablet = 324 mg, By Mouth, Every other day, # 45 tablet, 0 Refills, Maintenance, 07/31/22 11:19:00 EDT, Tablet, [facility] #71840, Partial fill upon patient request if the [...] Gm, 5 Refills, Maintenance, 07/19/19 15:19:00 EDT, [place], [facility] #40175, 2 sprays Nares, Both Daily in AM,x30 [...] 08/30/22 13:09:00 EDT, Route to Pharmacy Electronically, [facility] #[id number], 162.56, cm, 08/20/22 13:54:00 EDT, Height, 79.54, [...] 1 each, [facility] Blood pressure monitor neededto monitor blood [...] 2 Refills, Maintenance, 07/30/22 12:17:00 EDT, Syrup, [facility] #67379, 30 mL By Mouth 4 times a day, 162.56, cm, 07/30/22 10:55:00 EDT,Height, 79.54, kg, 07/30/22 10:55:00 EDT, Dry Weight Start Date: 07/30/22 Status: Ordered losartan 100 mg oral tablet 1 tablet, By Mouth, Daily, # 30 tablet, 5 Refills, [facility] #92561, 162, cm, 10/09/21 16:19:00 EDT, Height, 86.3, kg, 09/29/20 15:30:00 EDT, Dry Weight Start Date: 10/20/21 Status: Ordered meclizine 25 mg oral tablet 1 tablet = 25 mg, By Mouth, 2 times a day, # 30 tablet, 1 Refills, Maintenance, 07/10/21 17:25:00 EDT, Tablet, [facility] #02408, 162, cm, 06/19/21 15:40:00 EDT, Height, 86.3, kg, 09/29/20 15:30:00 EDT, Dry Weight Start Date: 07/10/21 Status: Ordered multivitamin with iron Multiple Vitamins with Iron oral tablet 1 tablet, By Mouth, Daily, # 30 tablet, 11 Refills, Maintenance, 04/17/22 7:51:00 EST, Tablet, [facility] #[id number], 1 tablet By Mouth Daily, 162.56, cm, 04/16/22 16:00:00 EST, Height, 87.6, kg, 10/24/21 8:00:00 EDT, Dry Weight Start Date: 04/17/22 Status: Ordered Narcan 4 mg/0.1 mL nasal spray = 4 mg, Inhalation, Once, # 2 each, 1 Refills, Soft Stop, 10/29/20 12:23:00 EDT, [facility] #[id number], Partial fill upon patient request if the prescription is for a schedule II opioid drug., 162, cm, 09/29/20 15:30:00 EDT, Height, 86.3, kg, 08... Start Date: 10/29/20 Status: Ordered ondansetron 4 mg oral tablet 1 tablet = 4 mg, By Mouth, Daily, PRN Nausea & Vomiting, # 10 tablet, 3 Refills, Maintenance, 06/25/22 17:28:00 EDT, [facility] #[id number], 162.56, cm, 06/25/22 16:16:00 EDT, Height, 87.6, [...] 2 Refills, Maintenance, 08/21/22 17:50:00 EDT, Tablet, [facility] #[id number], this is correct dose. 200mg Rx just sent by mistake., 162.56, cm, 08/20/22 13:54:00 EDT, Height, 79.54, kg, 06... Start Date: 08/21/22 Status: Ordered Senna 8.6 mg oral tablet 1-3 tablet, By Mouth, Daily, for constipation, # 90 tablet, Refills 5, Tot. Refills 5, Maintenance,03/26/20 15:25:00 EST, Route to Pharmacy Electronically, [facility] #[id number] Tablet, 162.56, cm, 03/21/20 15:01:00 EST, Height, [...] tablet, 5 Refills, Maintenance, 04/17/22 7:53:00 EST, [facility] #62674, 162.56, cm, 04/16/22 16:00:00 EST, Height, 87.6, kg, 10/24/21 8:00:00 EDT, Dry Weight Start Date: 04/17/22 Status: Ordered Suboxone 8 mg-2 mg Sublingual Film 2 film, Sublingual, Daily, [id number] Scavron covering [id number] Dino dissolve under the tongue may fill less due 09/03/2022, # 14 film, 0 Refills, Maintenance, 09/03/22 11:42:00 EDT, Film, [facility], 2 film Sublingual Daily,x7... Start Date: 09/03/22 Stop Date: 09/10/22 Status: Ordered Suboxone 8 mg-2 mg Sublingual Film 2 film, Sublingual, Daily, [id number] Scavron covering [id number] Prentiss dissolve under the tongue may fill less due 09/10/2022, # 14 film, 0 Refills, Maintenance, 09/03/22 12:54:00 EDT, Film, [facility], 2 film Sublingual Daily,x... Start Date: 09/03/22 Stop Date: 09/10/22 Status: Ordered SUMAtriptan 25 mg oral tablet 1 tablet = 25 mg, By Mouth, Daily, PRN as needed for migraine headache, may repeat dose after 2 hours up to a maximum of 2, # 6 tablet, 1 Refills, Maintenance, 03/02/20 19:47:00 EST, Tablet, [facility] #[id number], 162.56, cm, 01/04/20 9:40:00 ES... 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 2genotype 02/02: [id number] is only mutation detected 3death of sister, caring for mother w/ dementia 4repeat screening colonoscopy in 2020 Social History Social History Type Response Smoking Status Former smoker, quit more than 30 days ago entered on: 12/05/21 Sex Patient Care team information Care Team Personnel Name: Kahlil Sun MD Position: [facility] Physician - Primary Care Member Role: PCP Address: Address: [address] [place] [address] Name: Sharri Prince Position: [facility] PCO Associate Professional Member Role: Lifetime Consulting Provider Care Team Related Persons Name: SHANITA MENDOZA Address: home [address] [place] [address] Name: SHANITA MENDOZA BRITTNY Address: home [address] Name: ULICES PEARSON Name: ULICES ESPARZA Address: [place] [address] Name: LALA LI
--- OUTSIDE RECORDS SUMMARY | 2022-12-13 21:34 | XMS_ITS | Continuity of Care Document ---
Author Name Unknown Organization [facility] Address [address] [place] [address]- Care Team Providers Care Wind Science And Planning Name Role Phone Kahlil Sun MD Primary Care Physician Encounter [facility] [place] Date(s): 03/08/19 - 03/18/19 [facility] [address] [place] [address]- [facility] Attending Physician: Admtr, [id number] Admitting Physician: [...] Date: 05/12/18 Stop Date: 06/11/18 Status: Ordered Ativan 1 mg oral tablet See Instructions, TAKE 1 TABLET AT BEDTIME AND 1 TABLET 1 AND HALF HOURS PRIOR TO PROCEDURE, # 2 tablet, 0 Refills, Acute 03/21/19 9:48:00 EST, 03/06/19 9:47:00 EST Start Date: 03/06/19 Stop Date: 03/21/19 Status: Ordered Biktarvy oral tablet 1 tablet, [...] mg sublingual film 0.5 each, Sublingual, Daily, [place] [id number], # 4 film, 0 Refills, Maintenance, 02/02/19 17:01:00EST, 0.5 each Sublingual Daily,x7 days,Instr:Dino [id number], 162.56, cm, 09/26/18 16:01:28 EDT, Height, 72.3, kg, 09/26/18 16:01:28 EDT, Dry Weight Start Date: 02/02/19 Stop Date: 02/09/19 Status: Ordered Flonase 50 mcg/inh nasal spray 1 sprays, Nares, Both, 2 times a day, # 1 each, 0 Refills, Maintenance, 05/24/18 16:00:06 EDT, [place], 1 sprays Nares, Both 2 times a [...] # 1 each, Maintenance, [facility] Blood pressure monitor neededto monitor blood [...] 03/12/19 21:36:00 EST, Route to Pharmacy Electronically, [facility] #[id number], dose increase from 5mg,162.56, cm, 03/08/19 14:34:00 EST, Height, 72.3, kg... Start Date: 03/12/19 Status: Ordered loratadine 10 mg oral tablet 10 mg, 1, tablet, By Mouth, Daily, PRN, # 30 tablet, Refills 3, Tot. Refills 3, Maintenance, allergy/itch, 05/12/18 14:45:33 EDT, Route to Pharmacy Electronically, [id number], [facility] Start Date: 05/12/18 Status: Ordered LORazepam 0.5 mg oral tablet 0.5 tablet = 0.25 mg, By Mouth, 2 times a day, PRN as needed for anxiety, # 20 tablet, 1 Refills, Maintenance, 11/08/18 14:34:00 EDT, Tablet Start Date: 11/08/18 Status: Ordered pantoprazole 20 mg oral delayed [...] 12/05/15 14:17:14, Aerosol, Route to Pharmacy Electronically, [id number], [facility] [id number] Start Date: 12/05/15 Status: Ordered Senna 8.6 mg oral tablet 1-3 tablet, By Mouth, Daily, for constipation, # 90 tablet, Refills 5, Tot. Refills 5, Maintenance,02/17/18 15:12:45 EST, Route to Pharmacy Electronically, [id number], [facility] Tablet Start Date: 02/17/18 Status: [...] 2016 Active Migraine(Confirmed) Active Opioid dependence(Confirmed) Active *[id number]-[facility] [place] Partn renee Saavedra(Confirmed) Active [...] tolerance, and QD need over. 2genotype 02/02: [id number] is only mutation detected 3death of sister, caring for mother w/ dementia 4repeat screening colonoscopy in 2020 Social History Social History Type Response Smoking Status Former smoker, quit more than 30 days ago entered on: 05/24/18 Sex
--- OUTSIDE RECORDS SUMMARY | 2022-12-13 21:34 | XMS_ITS | Continuity of Care Document ---
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 2Result Comment: #2, [facility] 3Result Comment: [facility] 4Result Comment: pharmacy 5Location History: [facility] 6Admin Note: vis 08/31/11 7Admin Note: ADMIN.BY RN 8Result Comment: on license of [facility] 9Admin Note: Admin. by RN 10Admin Note: Admin. by RN 11Admin Note: Admin. 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 USE... Start Date: 11/13/20 Status: Ordered albuterol 0.083% inhalation solution 3 mL = 2.5 mg, Inhalation, Every 6 hours, PRN Wheezing/Shortness of Breath, # 60 each, 0 Refills, Maintenance, 06/07/20 12:51:00 EDT, Solution, [facility] #[id number], 162.56, cm, 05/23/20 14:31:00 EDT, Height, 77, [...] tablet, 3 Refills, Maintenance, 06/13/21 22:19:00 EDT, [facility] #36892, 1 tablet By Mouth Daily, 162, cm, [...] 1 Refills, Maintenance, 07/10/21 18:35:00 EDT, Tablet, [facility] #88725, Partial fill upon patient request if the prescription is for a schedule II opioid drug., 162, cm, 06/19/21 15:40:00 EDT... Start Date: 07/10/21 Status: Ordered cetirizine 10 mg oral tablet 1 tablet = 10 mg, By Mouth, Daily, For allergies., # 30 tablet, 2 Refills, Maintenance, 06/29/19 16:02:00 EDT, Tablet, [facility] #86904, 162.56, cm, 05/03/19 16:30:00 EST, Height, 72.3, kg, 09/26/18 16:01:00 EDT, Dry Weight Start Date: 06/29/19 Status: Ordered cloNIDine 0.1 mg oral tablet 0.1 mg, 1, tablet, By Mouth, 3 times a day, as needed for anxiety, # 25 tablet, Refills 0, Tot. Refills 0, Maintenance, 10/10/19 21:36:00 EDT, Route to Pharmacy Electronically, [facility] #[id number], 162.56, cm, 10/09/19 10:36:00 EDT, Height, 72... Start Date: 10/10/19 Status: Ordered diclofenac 1% topical gel = 2 Gm, Topically, 4 times a day, PRN for pain, not to exceed: 10 gm/day, # 100 Gm, 1 Refills, Maintenance, 05/29/21 16:52:00 EDT, Gel, [facility], Partial fill upon patient request if the prescription is for a schedule II opioid... Start Date: 05/29/21 Status: Ordered Dulera 200 mcg-5 mcg/inh inhalation aerosol 2 puffs, Inhalation, 2 times a day, # 1 each, 3 Refills, Maintenance, 01/28/21 16:44:00 EST, Aerosol, [facility], STOP FLOVENT, 2 puffs Inhalation 2 times a day,x30 days, 162, cm,01/28/21 16:02:00 EST, Height, 86.3, kg, 09/29/20 1... Start Date: 01/28/21 Stop Date: 05/28/21 Status: Ordered escitalopram 5 mg oral tablet 1 tablet = 5 mg, By Mouth, Daily, # 30 tablet, 11 Refills, Maintenance, 05/07/21 9:48:00 EST, Tablet, [facility] #[id number], Partial fill upon patient request if the prescription is for a schedule II opioid drug., 162, cm, 05/07/21 8:46:00 EST,... Start Date: 05/07/21 Status: Ordered Flonase 50 mcg/inh nasal spray 2 sprays, Nares, Both, Daily in AM, # 16 Gm, 5 Refills, Maintenance, 07/19/19 15:19:00 EDT, [place], [facility] #05826, 2 sprays Nares, Both Daily in AM,x30 days, 162.56, cm, 05/03/19 16:30:00 EST, Height, 72.3, kg, 09/26/18 16:01:00 EDT, Dry... Start Date: 07/19/19 Stop Date: 01/15/20 Status: Ordered fluconazole 150 mg oral tablet 1 tablet = 150 mg, By Mouth, Once, # 1 tablet, 1 Refills, Soft Stop, 01/08/21 19:37:00 EST, Tablet,[facility] #81297, 162, cm, 12/17/20 23:19:00 EDT, Height, 86.3, [...] 04/24/21 12:37:00 EST, Route to Pharmacy Electronically, [facility] #84273, STOP HCTZ, 162, cm, 03/24/21 18:41:00 EST, [...] each, Maintenance, [facility] Blood pressure monitor neededto monitor [...] 05/12/18 14:45:33 EDT, Route to Pharmacy Electronically, [id number], [facility] Start Date: 05/12/18 Status: Ordered LORazepam 0.5 mg oral tablet 0.5 tablet = 0.25 mg, By Mouth, 2 times a day, PRN as needed for anxiety, # 20 tablet, 1 Refills, Maintenance, 05/16/19 23:11:00 EDT, Tablet, [facility] #72581, 162.56, cm, 05/03/19 16:30:00 EST, Height, 72.3, kg, 09/26/18 16:01:00 EDT, Dry... Start Date: 05/16/19 Status: Ordered losartan 100 mg oral tablet 1 tablet, By Mouth, Daily, # 30 tablet, 2 Refills, [facility] #03394, 162, cm, 06/19/21 15:40:00 EDT, Height, 86.3, kg, 09/29/20 15:30:00 EDT, Dry Weight Start Date: 07/10/21 Status: Ordered meclizine 25 mg oral tablet 1 tablet = 25 mg, By Mouth, 2 times a day, # 30 tablet, 1 Refills, Maintenance, 07/10/21 17:25:00 EDT, Tablet, [facility] #12452, 162, cm, 06/19/21 15:40:00 EDT, Height, 86.3, kg, 09/29/20 15:30:00 EDT, Dry Weight Start Date: 07/10/21 Status: Ordered multivitamin with iron Multiple Vitamins with Iron oral tablet 1 tablet, By Mouth, Daily, # 30 tablet, 11 Refills, Maintenance, 05/07/21 9:45:00 EST, Tablet, [facility] #64083, Partial fill upon patient request if the prescription is for a schedule II opioid drug., 1 tablet By Mouth Daily, 162, cm, 030... Start Date: 05/07/21 Status: Ordered Narcan 4 mg/0.1 mL nasal spray = 4 mg, Inhalation, Once, # 2 each, 1 Refills, Soft Stop, 10/29/20 12:23:00 EDT, [facility] #05617, Partial fill upon patient request if the [...] each, 0 Refills, Maintenance, 06/04/20 16:46:00 EDT, [facility] #46300, OK to sub for any gallon prep, used as directed, 162.56, cm, 05/23/20 14:31:00 EDT, Height, 77, kg, 03/21/20 15:04:00 EST, Dry We... Start Date: 06/04/20 Status: Ordered predniSONE 50 mg oral tablet 1 tablet = 50 mg, By Mouth, Daily, # 7 tablet, 0 Refills, Maintenance, 01/28/21 16:37:00 EST, Tablet, [facility], Partial fill upon patient request if the prescription is for a schedule II opioid drug., 162, cm, 01/28/21 16:02:00 E... Start Date: 01/28/21 Stop Date: 02/04/21 Status: Ordered Senna 8.6 mg oral tablet 1-3 tablet, By Mouth, Daily, for constipation, # 90 tablet, Refills 5, Tot. Refills 5, Maintenance,03/26/20 15:25:00 EST, Route to Pharmacy Electronically, [facility] #[id number] Tablet, 162.56, cm, 03/21/20 15:01:00 EST, Height, [...] 5 Refills, Maintenance, 04/24/21 12:36:00 EST, Tablet, [facility] #93241, STOP HCTZ, 162, cm, 03/24/21 18:41:00 EST, [...] under the tongue increase in dose Iveth [id number] coveringfor Mongo due on/after 07/25/2021, # 35 film, 0 Refills, Maintenance, 07/25/21 12:07:00 EDT, Film, [facility], 2.5 film Subl... Start Date: 07/25/21 Stop Date: 08/08/21 Status: Ordered SUMAtriptan 25 mg oral tablet 1 tablet = 25 mg, By Mouth, Daily, PRN as needed for migraine headache, may repeat dose after 2 hours up to a maximum of 2, # 6 tablet, 1 Refills, Maintenance, 03/02/20 19:47:00 EST, Tablet, [facility] #25625, 162.56, cm, 01/04/20 9:40:00 ES... Start Date: 03/02/20 Status: Ordered Zofran 4 mg oral tablet 1 tablet = 4 mg, By Mouth, 2 times a day, PRN Nausea & Vomiting, # 10 tablet, 1 Refills, Maintenance, 06/19/21 17:01:00 EDT, Tablet, [facility] #12478, 162, cm, 06/19/21 15:40:00 EDT, Height, 86.3, kg, 09/29/20 15:30:00 EDT, Dry Weight Start Date: 06/19/21 Status: Ordered zolpidem 5 mg oral tablet 1 tablet = 5 mg, By Mouth, Daily at bedtime, PRN as needed for sleep, # 30 tablet, 0 Refills, Maintenance, 06/28/21 16:47:00 EDT, [facility] #35621, Partial fill upon patient request if theprescription [...] Obese class I(Confirmed) Active Opioid dependence(Confirmed) Active *[id number] Care Partn er April Saavedra(Confirmed) Active Health [...] tolerance, and QD need over. 2genotype 02/02: [id number] is only mutation detected 3death of sister, caring for mother w/ dementia 4repeat screening colonoscopy in 2020 Social History Social History Type Response Smoking Status Former smoker, quit more than 30 days ago entered on: 10/29/20 Sex
--- OUTSIDE RECORDS SUMMARY | 2022-12-13 21:34 | XMS_ITS | Continuity of Care Document ---
Author Name Unknown Organization [facility] Address [address] [place] [address]- Care Team Providers Care Chief Controller Station Name Role Phone Kahlil Snu MD Primary Care Physician Encounter [facility] Date(s): 08/23/20 - 09/22/20 [facility] [address] [place] [address]- Allergies, Adverse Reactions, Alerts Substance Reaction Severity [...] influenza virus vaccine, inactivated 7 01/30/04 Gi felciiano hepatitis B adult vaccine 08/23/18 Given hepatitis [...] toxoids (Td) 03/10/01 Given 1Result Comment: #2, [facility] 2Result Comment: [facility] 3Result Comment: [facility] 4Result Comment: pharmacy 5Location History: [facility] 6Admin [...] 1 Refills, Maintenance, 09/12/20 16:18:00EDT, CR Tablet, [facility] #86794, Partial fill upon patient request if the prescription is for a schedule II opioid drug., 162, cm, 09/12/20... Start Date: 09/12/20 Status: Ordered acyclovir 400 mg oral tablet 1 tablet = 400 mg, By Mouth, 2 times a day, # 10 tablet, 5 Refills, Maintenance, 01/26/20 16:20:00 EST, [facility], 162.56, cm, 10/09/19 10:36:00 EDT, Height, 72.3, kg, 09/26/18 16:01:00 EDT, Dry Weight Start Date: 01/26/20 Stop Date: 02/25/20 Status: Ordered albuterol 0.083% inhalation solution 3 mL = 2.5 mg, Inhalation, Every 6 hours, PRN Wheezing/Shortness of Breath, # 60 each, 0 Refills, Maintenance, 06/07/20 12:51:00 EDT, Solution, [facility] #57305, 162.56, cm, 05/23/20 14:31:00 EDT, Height, 77, [...] tablet, 3 Refills, Maintenance, 03/02/20 19:50:00 EST, [facility] #19952, 1 tablet By Mouth Daily, 162.56, cm, 01/04/20 9:40:00 EST, Height, 72.3, kg, 09/26/18 16:01:00 EDT, Dry Weight Start Date: 03/02/20 Status: Ordered Blood Pressure Meter Blood Pressure Meter, See Instructions, # 1 each, Refills 0, Tot. Refills 0, Maintenance, Use for, 07/11/18 16:11:47 EDT, Compound Start Date: 07/11/18 Status: Ordered buprenorphine-naloxone 2 mg-0.5 mg sublingual film 0.25 each, Sublingual, Daily, Dino [id number], # 8 film, 0 Refills, Maintenance, 12/15/19 19:00:00 EDT, [facility] #18667, Partial fill on request., 0.25 each Sublingual Daily,Instr:Dino [id number], 162.56, cm, 10/09/19 10:36:00 EDT, Hei... Start Date: 12/15/19 Status: Ordered buprenorphine-naloxone 8 mg-2 mg sublingual film 1 film, Sublingual, Daily, dissolve under the tongue, # 7 film, 0 Refills, Maintenance, 09/12/20 15:38:00 EDT, Film, [facility] #34763, Partial fill upon patient request if the prescriptionis for a schedule II opioid drug., 1 film Sublingua... Start Date: 09/12/20 Stop Date: 09/19/20 Status: Ordered cetirizine 10 mg oral tablet 1 tablet = 10 mg, By Mouth, Daily, For allergies., # 30 tablet, 2 Refills, Maintenance, 06/29/19 16:02:00 EDT, Tablet, [facility] #87844, 162.56, cm, 05/03/19 16:30:00 EST, Height, 72.3, kg, 09/26/18 16:01:00 EDT, Dry Weight Start Date: 06/29/19 Status: Ordered cloNIDine 0.1 mg oral tablet 0.1 mg, 1, tablet, By Mouth, 3 times a day, as needed for anxiety, # 25 tablet, Refills 0, Tot. Refills 0, Maintenance, 10/10/19 21:36:00 EDT, Route to Pharmacy Electronically, [facility] #27689, 162.56, cm, 10/09/19 10:36:00 EDT, Height, 72... [...] Gm, 5 Refills, Maintenance, 07/19/19 15:19:00 EDT, [place], [facility] #27223, 2 sprays Nares, Both Daily in AM,x30 days, 162.56, cm, 05/03/19 16:30:00 EST, Height, 72.3, kg, 09/26/18 16:01:00 EDT, Dry... Start Date: 07/19/19 Stop Date: 01/15/20 Status: Ordered Flovent HFA 44 mcg/inh inhalation aerosol 1 puffs, Inhalation, 2 times a day, # 1 each, 5 Refills, Maintenance, 06/07/20 12:52:00 EDT, Aerosol, [facility] #77374, 162.56, cm, 05/23/20 14:31:00 EDT, Height, 77, [...] covering for [facility] Blood pressure monitor neededto monitor blood pressure [...] 3 Refills, Maintenance, 03/02/20 19:48:00 EST, Tablet, [facility] #56057, 30 day supply preferred for present, 162.56, [...] 05/12/18 14:45:33 EDT, Route to Pharmacy Electronically, [id number], [facility] Start Date: 05/12/18 Status: Ordered LORazepam 0.5 mg oral tablet 0.5 tablet = 0.25 mg, By Mouth, 2 times a day, PRN as needed for anxiety, # 20 tablet, 1 Refills, Maintenance, 05/16/19 23:11:00 EDT, Tablet, [facility] #[id number], 162.56, cm, 05/03/19 16:30:00 EST, Height, 72.3, kg, 09/26/18 16:01:00 EDT, Dry... Start Date: 05/16/19 Status: Ordered losartan 100 mg oral tablet 1 tablet = 100 mg, By Mouth, Daily, # 30 tablet, 2 Refills, Maintenance, 06/26/20 8:47:00 EDT, Tablet, [facility] #15468, 162, cm, 06/19/20 8:04:00 EDT, Height, 82.1, kg, 06/08/20 17:25:00 EDT, Dry Weight Start Date: 06/26/20 Status: Ordered meclizine 25 mg oral tablet 1 tablet = 25 mg, By Mouth, 2 times a day, # 30 tablet, 1 Refills, Maintenance, 03/30/19 15:49:00 EST, Tablet, [facility] #97900, 162.56, cm, 03/08/19 14:34:00 EST, Height, 72.3, [...] each, 0 Refills, Maintenance, 06/04/20 16:46:00 EDT, [facility] #37063, OK to sub for any gallon prep, [...] 12:51:00 EDT, Aerosol, Route to Pharmacy Electronically, [id number], [facility] #[id number], 1... Start Date: 06/07/20 Status: Ordered Senna 8.6 mg oral tablet 1-3 tablet, By Mouth, Daily, for constipation, # 90 tablet, Refills 5, Tot. Refills 5, Maintenance,03/26/20 15:25:00 EST, Route to Pharmacy Electronically, [facility] #72553 Tablet, 162.56, cm, 03/21/20 15:01:00 EST, Height, 77, kg, ... Start Date: 03/26/20 Status: Ordered Spacer for inhalers Spacer for inhalers, See Instructions, # 1 each, Refills 0, Tot. Refills 0, Maintenance, Use with inhalers as directed. Kyrgyz., 06/07/19 15:07:00 EDT, Compound, 162.56, cm, 05/03/19 16:30:00 EST, Height, 72.3, kg, 09/26/18 16:01:00 EDT, Dry Weight Start Date: 06/07/19 Status: Ordered Sublocade 100 mg/0.5 mL subcutaneous solution, extended release = 100 mg, Subcutaneous Infusion, Every 28 days, [facility], # 1 each, 0 Refills, [...] 1 Refills, Maintenance, 03/02/20 19:47:00 EST, Tablet, [facility] #10553, 162.56, cm, 01/04/20 9:40:00 ES... Start Date: 03/02/20 Status: Ordered Zofran 4 mg oral tablet 1 tablet = 4 mg, By Mouth, 2 times a day, PRN Nausea & Vomiting, # 10 tablet, 0 Refills, Maintenance, 09/19/20 18:37:00 EDT, Tablet, [facility] #36301, 162, cm, 09/19/20 15:59:00 EDT, Height, 82.1, [...] 2016 Active Migraine(Confirmed) Active Opioid dependence(Confirmed) Active *[phone] Care Partn er April Saavedra(Confirmed) Active Health [...] tolerance, and QD need over. 2genotype 02/02: [id number] is only mutation detected 3death of sister, caring for mother w/ dementia 4repeat screening colonoscopy in 2020 Social History Social History Type Response Smoking Status Former smoker, quit more than 30 days ago entered on: 05/24/18 Sex
--- OUTSIDE RECORDS SUMMARY | 2022-12-13 21:34 | XMS_ITS | Continuity of Care Document ---
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 by RN 9Admin Note: Admin. by RN 10Admin Note: Admin. 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 Start Date: 09/12/20 Status: Ordered acyclovir 400 mg oral tablet 1 tablet = 400 mg, By Mouth, 2 times a day, # 10 tablet, 5 Refills, Maintenance, 01/08/21 18:41:00 EST, [facility] #06794, 162, cm, 12/17/20 23:19:00 EDT, Height, 86.3, kg, 09/29/20 15:30:00 EDT, Dry Weight Start Date: 01/08/21 Stop Date: 02/07/21 Status: Ordered Albuterol (Eqv-ProAir HFA) 90 mcg/inh inhalation aerosol 2 puffs, Inhalation, Every 4 hours, PRN NEEDED FOR WHEEZING/SHORTNESS OF BREATH, USE WITH SPACERCHAMBER, # 8.5 Gm, 5 Refills, [facility] #43505, 16, INHALE 2 PUFFS INTO LUNGS EVERY 4 HOURS NEEDED FOR WHEEZING/SHORTNESS OF BREATH. USE... Start Date: 11/13/20 Status: Ordered albuterol 0.083% inhalation solution 3 mL = 2.5 mg, Inhalation, Every 6 hours, PRN Wheezing/Shortness of Breath, # 60 each, 0 Refills, Maintenance, 06/07/20 12:51:00 EDT, Solution, [facility] #36937, 162.56, cm, 05/23/20 14:31:00 EDT, Height, 77, [...] tablet, 3 Refills, Maintenance, 03/02/20 19:50:00 EST, [facility] #58997, 1 tablet By Mouth Daily, 162.56, cm, [...] 2 Refills, Maintenance, 06/29/19 16:02:00 EDT, Tablet, [facility] #67257, 162.56, cm, 05/03/19 16:30:00 EST, Height, 72.3, kg, 09/26/18 16:01:00 EDT, Dry Weight Start Date: 06/29/19 Status: Ordered cloNIDine 0.1 mg oral tablet 0.1 mg, 1, tablet, By Mouth, 3 times a day, as needed for anxiety, # 25 tablet, Refills 0, Tot. Refills 0, Maintenance, 10/10/19 21:36:00 EDT, Route to Pharmacy Electronically, [facility] #99059, 162.56, cm, 10/09/19 10:36:00 EDT, Height, 72... [...] Gm, 5 Refills, Maintenance, 07/19/19 15:19:00 EDT, [place], [facility] #99362, 2 sprays Nares, Both Daily in AM,x30 days, 162.56, cm, 05/03/19 16:30:00 EST, Height, 72.3, kg, 09/26/18 16:01:00 EDT, Dry... Start Date: 07/19/19 Stop Date: 01/15/20 Status: Ordered fluconazole 150 mg oral tablet 1 tablet = 150 mg, By Mouth, Once, # 1 tablet, 1 Refills, Soft Stop, 01/08/21 19:37:00 EST, Tablet,[facility] #45812, 162, cm, 12/17/20 23:19:00 EDT, Height, 86.3, [...] 01/28/21 16:28:00 EST, Route to Pharmacy Electronically, [facility], STOP HCTZ, 162, cm, 01/28/21 16:02:00 [...] 3 Refills, Maintenance, 03/02/20 19:48:00 EST, Tablet, [facility] #40321, 30 day supply preferred for present, 162.56, [...] 05/12/18 14:45:33 EDT, Route to Pharmacy Electronically, [id number], [facility] Start Date: 05/12/18 Status: Ordered LORazepam 0.5 mg oral tablet 0.5 tablet = 0.25 mg, By Mouth, 2 times a day, PRN as needed for anxiety, # 20 tablet, 1 Refills, Maintenance, 05/16/19 23:11:00 EDT, Tablet, [facility] #45939, 162.56, cm, 05/03/19 16:30:00 EST, Height, 72.3, kg, 09/26/18 16:01:00 EDT, Dry... Start Date: 05/16/19 Status: Ordered losartan 100 mg oral tablet 1 tablet, By Mouth, Daily, # 30 tablet, 5 Refills, Maintenance, 09/24/20 16:00:00 EDT, [facility] #64273, 162, cm, 09/19/20 15:59:00 EDT, Height, 82.1, kg, 06/08/20 17:25:00 EDT, Dry Weight Start Date: 09/24/20 Status: Ordered meclizine 25 mg oral tablet 1 tablet = 25 mg, By Mouth, 2 times a day, # 30 tablet, 1 Refills, Maintenance, 03/30/19 15:49:00 EST, Tablet, [facility] #16373, 162.56, cm, 03/08/19 14:34:00 EST, Height, 72.3, kg, 09/26/18 16:01:00 EDT, Dry Weight Start Date: 03/30/19 Status: Ordered Narcan 4 mg/0.1 mL nasal spray = 4 mg, Inhalation, Once, # 2 each, 1 Refills, Soft Stop, 10/29/20 12:23:00 EDT, [facility] #15591, Partial fill upon patient request if the [...] each, 0 Refills, Maintenance, 06/04/20 16:46:00 EDT, [facility] #39265, OK to sub for any gallon prep, used as directed, 162.56, cm, 05/23/20 14:31:00 EDT, Height, 77, kg, 03/21/20 15:04:00 EST, Dry We... Start Date: 06/04/20 Status: Ordered predniSONE 50 mg oral tablet 1 tablet = 50 mg, By Mouth, Daily, # 7 tablet, 0 Refills, Maintenance, 01/28/21 16:37:00 EST, Tablet, [facility], Partial fill upon patient request if the prescription is for a schedule II opioid drug., 162, cm, 01/28/21 16:02:00 E... Start Date: 01/28/21 Stop Date: 02/04/21 Status: Ordered Senna 8.6 mg oral tablet 1-3 tablet, By Mouth, Daily, for constipation, # 90 tablet, Refills 5, Tot. Refills 5, Maintenance,03/26/20 15:25:00 EST, Route to Pharmacy Electronically, [facility] #29447 Tablet, 162.56, cm, 03/21/20 15:01:00 EST, Height, [...] 4 Refills, Maintenance, 01/28/21 16:29:00 EST, Tablet, [facility], STOP HCTZ, 162, cm, 01/28/21 16:02:00 [...] under the tongue increase in dose 01/22/2021 [id number], # 60 film, 0 Refills, Maintenance, 01/22/21 13:49:00 EST, Film, [facility] #20014, Partial fill upon patient request if the prescription is for a... Start Date: 01/22/21 Status: Ordered SUMAtriptan 25 mg oral tablet 1 tablet = 25 mg, By Mouth, Daily, PRN as needed for migraine headache, may repeat dose after 2 hours up to a maximum of 2, # 6 tablet, 1 Refills, Maintenance, 03/02/20 19:47:00 EST, Tablet, [facility] #66002, 162.56, cm, 01/04/20 9:40:00 ES... Start Date: 03/02/20 Status: Ordered Zofran 4 mg oral tablet 1 tablet = 4 mg, By Mouth, 2 times a day, PRN Nausea & Vomiting, # 10 tablet, 0 Refills, Maintenance, 12/01/20 20:26:00 EDT, Tablet, [facility] #89245, 162, cm, 10/29/20 17:08:00 EDT, Height, 86.3, [...] Obese class II(Confirmed) Active Opioid dependence(Confirmed) Active *[phone] Care Partn renee Saavedra(Confirmed) Active Health care [...] tolerance, and QD need over. 2genotype 02/02: [id number] is only mutation detected 3death of sister, caring for mother w/ dementia 4repeat screening colonoscopy in 2020 Social History Social History Type Response Smoking Status Former smoker, quit more than 30 days ago entered on: 10/29/20 Sex
--- OUTSIDE RECORDS SUMMARY | 2022-12-13 21:34 | XMS_ITS | Continuity of Care Document ---
Author Name Unknown [facility] Address [address] [place] [address]- Care Team Providers Care Rate Engineer Name Role Phone Kahlil Sun MD Primary Care Physician Encounter [facility] Date(s): 08/07/20 - 09/06/20 [facility] [address] [place] [address]- Allergies, Adverse Reactions, Alerts Substance Reaction Severity [...] toxoids (Td) 03/10/01 Given 1Result Comment: #2, [facility] 2Result Comment: [facility] 3Result Comment: [facility] 4Result Comment: pharmacy 5Location History: [...] 5 Refills, Maintenance, 01/26/20 16:20:00 EST, [facility], 162.56, cm, 10/09/19 10:36:00 EDT, Height, 72.3, kg, 09/26/18 16:01:00 EDT, Dry Weight Start Date: 01/26/20 Stop Date: 02/25/20 Status: Ordered albuterol 0.083% inhalation solution 3 mL = 2.5 mg, Inhalation, Every 6 hours, PRN Wheezing/Shortness of Breath, # 60 each, 0 Refills, Maintenance, 06/07/20 12:51:00 EDT, Solution, [email or web address] #[id number], 162.56, cm, 05/23/20 14:31:00 EDT, Height, 77, [...] tablet, 3 Refills, Maintenance, 03/02/20 19:50:00 EST, [email or web address] #[id number], 1 tablet By Mouth Daily, 162.56, cm, 01/04/20 9:40:00 EST, Height, 72.3, kg, 09/26/18 16:01:00 EDT, Dry Weight Start Date: 03/02/20 Status: Ordered Blood Pressure Meter Blood Pressure Meter, See Instructions, # 1 each, Refills 0, Tot. Refills 0, Maintenance, Use for, 07/11/18 16:11:47 EDT, Compound Start Date: 07/11/18 Status: Ordered buprenorphine-naloxone 2 mg-0.5 mg sublingual film 0.25 each, Sublingual, Daily, [place] [id number], # 8 film, 0 Refills, Maintenance, 12/15/19 19:00:00 EDT, [facility] #[id number], Partial fill on request., 0.25 each Sublingual Daily,Instr:[place] [id number], 162.56, cm, 10/09/19 10:36:00 EDT, Hei... Start Date: 12/15/19 Status: Ordered buprenorphine-naloxone 2 mg-0.5 mg sublingual film 1 film, Sublingual, Daily, [place] [id number], # 7 film, 0 Refills, Maintenance, 08/28/20 17:26:00 EDT, [facility] #[id number], Partial fill on request., 1 film Sublingual Daily,Instr:[place] [id number], 162, cm, 06/19/20 8:04:00 EDT, Height, 82.1,... Start Date: 08/28/20 Status: Ordered cetirizine 10 mg oral tablet 1 tablet = 10 mg, By Mouth, Daily, For allergies., # 30 tablet, 2 Refills, Maintenance, 06/29/19 16:02:00 EDT, Tablet, [email or web address] #[id number], 162.56, cm, 05/03/19 16:30:00 EST, Height, 72.3, kg, 09/26/18 16:01:00 EDT, Dry Weight Start Date: 06/29/19 Status: Ordered cloNIDine 0.1 mg oral tablet 0.1 mg, 1, tablet, By Mouth, 3 times a day, as needed for anxiety, # 25 tablet, Refills 0, Tot. Refills 0, Maintenance, 10/10/19 21:36:00 EDT, Route to Pharmacy Electronically, [facility] #[id number], 162.56, cm, 10/09/19 10:36:00 EDT, Height, 72... [...] Gm, 5 Refills, Maintenance, 07/19/19 15:19:00 EDT, [place], [email or web address] #[id number], 2 sprays Nares, Both Daily in AM,x30 days, 162.56, cm, 05/03/19 16:30:00 EST, Height, 72.3, kg, 09/26/18 16:01:00 EDT, Dry... Start Date: 07/19/19 Stop Date: 01/15/20 Status: Ordered Flovent HFA 44 mcg/inh inhalation aerosol 1 puffs, Inhalation, 2 times a day, # 1 each, 5 Refills, Maintenance, 06/07/20 12:52:00 EDT, Aerosol, [email or web address] #[id number], 162.56, cm, 05/23/20 14:31:00 EDT, Height, 77, [...] 3 Refills, Maintenance, 03/02/20 19:48:00 EST, Tablet, [facility] #[id number], 30 day supply preferred for present, 162.56, [...] 05/12/18 14:45:33 EDT, Route to Pharmacy Electronically, [id number], [facility] Start Date: 05/12/18 Status: Ordered LORazepam 0.5 mg oral tablet 0.5 tablet = 0.25 mg, By Mouth, 2 times a day, PRN as needed for anxiety, # 20 tablet, 1 Refills, Maintenance, 05/16/19 23:11:00 EDT, Tablet, [email or web address] #[id number], 162.56, cm, 05/03/19 16:30:00 EST, Height, 72.3, kg, 09/26/18 16:01:00 EDT, Dry... Start Date: 05/16/19 Status: Ordered losartan 100 mg oral tablet 1 tablet = 100 mg, By Mouth, Daily, # 30 tablet, 2 Refills, Maintenance, 06/26/20 8:47:00 EDT, Tablet, [email or web address] #[id number], 162, cm, 06/19/20 8:04:00 EDT, Height, 82.1, kg, 06/08/20 17:25:00 EDT, Dry Weight Start Date: 06/26/20 Status: Ordered meclizine 25 mg oral tablet 1 tablet = 25 mg, By Mouth, 2 times a day, # 30 tablet, 1 Refills, Maintenance, 03/30/19 15:49:00 EST, Tablet, [facility] #[id number], 162.56, cm, 03/08/19 14:34:00 EST, Height, 72.3, [...] each, 0 Refills, Maintenance, 06/04/20 16:46:00 EDT, [facility] #[id number], OK to sub for any gallon prep, [...] 12:51:00 EDT, Aerosol, Route to Pharmacy Electronically, [id number], [facility] #[id number], 1... Start Date: 06/07/20 Status: Ordered Senna 8.6 mg oral tablet 1-3 tablet, By Mouth, Daily, for constipation, # 90 tablet, Refills 5, Tot. Refills 5, Maintenance,03/26/20 15:25:00 EST, Route to Pharmacy Electronically, [facility] #[id number] Tablet, 162.56, cm, 03/21/20 15:01:00 EST, Height, 77, kg, ... Start Date: 03/26/20 Status: Ordered Spacer for inhalers Spacer for inhalers, See Instructions, # 1 each, Refills 0, Tot. Refills 0, Maintenance, Use with inhalers as directed. [place]., 06/07/19 15:07:00 EDT, Compound, 162.56, cm, 05/03/19 16:30:00 EST, Height, 72.3, kg, 09/26/18 16:01:00 EDT, Dry Weight Start Date: 06/07/19 Status: Ordered SUMAtriptan 25 mg oral tablet 1 tablet = 25 mg, By Mouth, Daily, PRN as needed for migraine headache, may repeat dose after 2 hours up to a maximum of 2, # 6 tablet, 1 Refills, Maintenance, 03/02/20 19:47:00 EST, Tablet, [email or web address] #59904, 162.56, cm, 01/04/20 9:40:00 ES... Start Date: 03/02/20 Status: Ordered Zofran 4 mg oral tablet 1 tablet = 4 mg, By Mouth, 2 times a day, PRN Nausea & Vomiting, # 10 tablet, 0 Refills, Maintenance, 05/04/20 17:09:00 EST, Tablet, [email or web address] #52545, 162.56, cm, 05/03/20 9:23:00 EST,Height, 77, kg, [...] 2016 Active Migraine(Confirmed) Active Opioid dependence(Confirmed) Active *[id number] Care Partn Aprilleela Saavedra(Confirmed) Active Health care maintenance(Confirmed) Active Routine [...] tolerance, and QD need over. 2genotype 02/02: [id number] is only mutation detected 3death of sister, caring for mother w/ dementia 4repeat screening colonoscopy in 2020 Social History Social History Type Response Smoking Status Former smoker, quit more than 30 days ago entered on: 05/24/18 Sex
--- OUTSIDE RECORDS SUMMARY | 2022-12-13 21:34 | XMS_ITS | Continuity of Care Document ---
Author Name Unknown Organization [facility] Address [address] [place] [address]- Care Team Providers Care Health Inspector Food Name Role Phone Kahlil Sun MD Primary Care Physician [id number] Date(s): 07/06/22 - 08/12/22 [facility] [address]- Attending Physician: Kahlil Sun MD Admitting Physician: [...] events reported or observed. 2Result Comment: #2, [facility] 3Result Comment: [facility] 4Result Comment: pharmacy 5Location History: [place] 6Admin Note: vis 08/31/11 7Admin Note: ADMIN.BY RN 8Result Comment: [facility] 9Admin Note: Admin. by RN 10Admin Note: Admin. by RN 11Admin Note: Admin. by RN 12Admin Note: vis 06/15/15 13Admin Note: dose #6 (3rd in 2nd series) 14Admin Note: dose #5 15Admin Note: #3 16Admin Note: LITO [employer] 17Admin Note: ADMIN BEN, [employer] 18Admin Note: BY LEXI Agudelo 19Admin Note: [...] tablet, 5 Refills, Maintenance, 01/08/21 18:41:00 EST, [facility] #[id number], 162, cm, 12/17/20 23:19:00 EDT, Height, 86.3, kg, 09/29/20 15:30:00 EDT, Dry Weight Start Date: 01/08/21 Stop Date: 02/07/21 Status: Ordered Albuterol (Eqv-ProAir HFA) 90 mcg/inh inhalation aerosol 2 puffs, Inhalation, Every 4 hours, PRN NEEDED FOR WHEEZING/SHORTNESS OF BREATH, USE WITH SPACERCHAMBER, # 8.5 Gm, 5 Refills, [facility] #[id number], 16, INHALE 2 PUFFS INTO LUNGS EVERY 4 HOURS NEEDED FOR WHEEZING/SHORTNESS OF BREATH. USE... Start Date: 11/13/20 Status: Ordered albuterol 0.083% inhalation solution 3 mL = 2.5 mg, Inhalation, Every 6 hours, PRN Wheezing/Shortness of Breath, # 60 each, 0 Refills, Maintenance, 06/07/20 12:51:00 EDT, Solution, [facility] #[id number], 162.56, cm, 05/23/20 14:31:00 EDT, Height, 77, [...] tablet, 12 Refills, Maintenance, 04/17/22 7:54:00 EST, [facility] #[id number], 1 tablet By Mouth Daily, 162.56, cm, 04/16/22 16:00:00 EST, Height, 87.6, kg, 10/24/21 8:00:00 EDT, Dry Weight Start Date: 04/17/22 Status: Ordered Biktarvy oral tablet See Instructions, TAKE 1 TABLET BY MOUTH DAILY, # 90 tablet, 0 Refills, Maintenance, 07/15/22 13:50:00 EDT, [facility] #[id number], 90, TAKE 1 TABLET BY MOUTH DAILY, [...] 1 Refills, Maintenance, 07/10/21 18:35:00 EDT, Tablet, [facility] #[id number], Partial fill upon patient request if the prescription is for a schedule II opioid drug., 162, cm, 06/19/21 15:40:00 EDT... Start Date: 07/10/21 Status: Ordered cloNIDine 0.1 mg oral tablet 1, tablet, By Mouth, 3 times a day, PRN, # 90 tablet, Refills 11, Tot. Refills 11, Maintenance, NEEDED FOR ANXIETY, 08/12/22 15:06:00 EDT, Route to Pharmacy Electronically, [facility] #[id number], 162.56, cm, 07/30/22 10:55:00 EDT, Height, 79.... Start Date: 08/12/22 Status: Ordered Colace Clear 50 mg oral capsule 1 capsule = 50 mg, By Mouth, 2 times a day, PRN as needed for constipation, # 60 capsule, 0 Refills, Maintenance, 12/05/21 15:09:00 EDT, [facility] #[id number], Partial fill upon patient requestif the prescription is for a schedule II opioid nhi... Start Date: 12/05/21 Status: Ordered diclofenac 1% topical gel = 2 Gm, Topically, 4 times a day, PRN for pain, not to exceed: 10 gm/day, # 100 Gm, 1 Refills, Maintenance, 05/29/21 16:52:00 EDT, Gel, [facility], Partial fill upon patient request if the prescription is for a schedule II opioid... Start Date: 05/29/21 Status: Ordered Dulera 200 mcg-5 mcg/inh inhalation aerosol 2 puffs, Inhalation, 2 times a day, # 1 each, 3 Refills, Maintenance, 01/28/21 16:44:00 EST, Aerosol, [facility], STOP FLOVENT, 2 puffs Inhalation 2 times a day,x30 days, 162, cm,01/28/21 16:02:00 EST, Height, 86.3, kg, 09/29/20 1... Start Date: 01/28/21 Stop Date: 05/28/21 Status: Ordered escitalopram 20 mg oral tablet 1 tablet = 20 mg, By Mouth, Daily, # 90 tablet, 0 Refills, Maintenance, 07/30/22 12:03:00 EDT, Tablet, [facility] #[id number], Partial fill upon patient request if the prescription is for a schedule II opioid drug., 162.56, cm, 07/30/22 10:55:00... Start Date: 07/30/22 Status: Ordered ferrous fumarate 324 mg oral tablet 1 tablet = 324 mg, By Mouth, Every other day, # 45 tablet, 0 Refills, Maintenance, 07/31/22 11:19:00 EDT, Tablet, [facility] #[id number], Partial fill upon patient request if the [...] Gm, 5 Refills, Maintenance, 07/19/19 15:19:00 EDT, [place], [facility] #[id number], 2 sprays Nares, Both Daily in AM,x30 [...] Replace Required Details, Route to Pharmacy Electronically, [facility] #[id number], 162.56, cm,... Start Date: 11/27/21 Status: Ordered [...] 1 each, Maintenance[facility] neededto monitor blood pressure [...] 2 Refills, Maintenance, 07/30/22 12:17:00 EDT, Syrup, [facility] #[id number], 30 mL By Mouth 4 times a day, 162.56, cm, 07/30/22 10:55:00 EDT,Height, 79.54, kg, 07/30/22 10:55:00 EDT, Dry Weight Start Date: 07/30/22 Status: Ordered losartan 100 mg oral tablet 1 tablet, By Mouth, Daily, # 30 tablet, 5 Refills, [facility] #[id number], 162, cm, 10/09/21 16:19:00 EDT, Height, 86.3, kg, 09/29/20 15:30:00 EDT, Dry Weight Start Date: 10/20/21 Status: Ordered meclizine 25 mg oral tablet 1 tablet = 25 mg, By Mouth, 2 times a day, # 30 tablet, 1 Refills, Maintenance, 07/10/21 17:25:00 EDT, Tablet, [facility] #[id number], 162, cm, 06/19/21 15:40:00 EDT, Height, 86.3, kg, 09/29/20 15:30:00 EDT, Dry Weight Start Date: 07/10/21 Status: Ordered multivitamin with iron Multiple Vitamins with Iron oral tablet 1 tablet, By Mouth, Daily, # 30 tablet, 11 Refills, Maintenance, 04/17/22 7:51:00 EST, Tablet, [facility] #[id number], 1 tablet By Mouth Daily, 162.56, cm, 04/16/22 16:00:00 EST, Height, 87.6, kg, 10/24/21 8:00:00 EDT, Dry Weight Start Date: 04/17/22 Status: Ordered Narcan 4 mg/0.1 mL nasal spray = 4 mg, Inhalation, Once, # 2 each, 1 Refills, Soft Stop, 10/29/20 12:23:00 EDT, [facility] #[id number], Partial fill upon patient request if the prescription is for a schedule II opioid drug., 162, cm, 09/29/20 15:30:00 EDT, Height, 86.3, kg, 08... Start Date: 10/29/20 Status: Ordered ondansetron 4 mg oral tablet 1 tablet = 4 mg, By Mouth, Daily, PRN Nausea & Vomiting, # 10 tablet, 3 Refills, Maintenance, 06/25/22 17:28:00 EDT, [facility] #[id number], 162.56, cm, 06/25/22 16:16:00 EDT, Height, 87.6, [...] each, 0 Refills, Maintenance, 06/04/20 16:46:00 EDT, [facility] #58514, OK to sub for any gallon prep, used as directed, 162.56, cm, 05/23/20 14:31:00 EDT, Height, 77, kg, 03/21/20 15:04:00 EST, Dry We... Start Date: 06/04/20 Status: Ordered Senna 8.6 mg oral tablet 1-3 tablet, By Mouth, Daily, for constipation, # 90 tablet, Refills 5, Tot. Refills 5, Maintenance,03/26/20 15:25:00 EST, Route to Pharmacy Electronically, [facility] #[id number] Tablet, 162.56, cm, 03/21/20 15:01:00 EST, Height, [...] tablet, 5 Refills, Maintenance, 04/17/22 7:53:00 EST, [facility] #[id number], 162.56, cm, 04/16/22 16:00:00 EST, Height, 87.6, kg, 10/24/21 8:00:00 EDT, Dry Weight Start Date: 04/17/22 Status: Ordered Suboxone 8 mg-2 mg Sublingual Film 2 film, Sublingual, Daily, [id number] [place] dissolve under the tongue may fill less due 08/13/2022,# 14 film, 0 Refills, Maintenance, 08/07/22 19:57:00 EDT, Film, [facility], 2 film Sublingual Daily,x7 days,Instr:[id number] Cathy... Start Date: 08/07/22 Stop Date: 08/14/22 Status: Ordered SUMAtriptan 25 mg oral tablet 1 tablet = 25 mg, By Mouth, Daily, PRN as needed for migraine headache, may repeat dose after 2 hours up to a maximum of 2, # 6 tablet, 1 Refills, Maintenance, 03/02/20 19:47:00 EST, Tablet, [facility] #[id number], 162.56, cm, 01/04/20 9:40:00 ES... 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 2genotype 02/02: [id number] is only mutation detected 3death of sister, caring for mother w/ dementia 4repeat screening colonoscopy in 2020 Social History Social History Type Response Smoking Status Former smoker, quit more than 30 days ago entered on: 12/05/21 Sex Patient Care team information Care Team Personnel Name: Kahlil Sun MD Position: [facility] Physician - Primary Care Member Role: PCP Address: Address: [address] [place] [address] Name: Sharri Prince Position: [facility] PCO Associate Professional Member Role: Lifetime Consulting Provider Care Team Related Persons Name: SHANITA MENDOZA Address: home [address] [place] [address] Name: SHANITA MENDOZA Address: home [address] Name: ULICES PEARSON Name: ULICES ESPARZA Address: [place] [address] Name: LALA LI
--- OUTSIDE RECORDS SUMMARY | 2022-12-13 21:34 | XMS_ITS | Continuity of Care Document ---
Author Name Unknown Organization [facility] Address Unknown Care Team Providers Care Rn Tele Name Role Phone Kahlil Sun MD Primary Care Physician [phone] [facility] [place] Date(s): 06/19/21 - 07/26/21 [facility] Attending Physician: Kahlil Sun MD [...] reported or observed. 2Result Comment: #2, [facility] 3Result Comment: [facility] 4Result Comment: pharmacy 5Location History: [facility] 6Admin Note: vis 08/31/11 7Admin Note: ADMIN.BY RN 8Result Comment: [facility] 9Admin Note: Admin. by RN 10Admin Note: Admin. by RN 11Admin Note: Admin. 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 USE... Start Date: 11/13/20 Status: Ordered albuterol 0.083% inhalation solution 3 mL = 2.5 mg, Inhalation, Every 6 hours, PRN Wheezing/Shortness of Breath, # 60 each, 0 Refills, Maintenance, 06/07/20 12:51:00 EDT, Solution, [facility] #[id number], 162.56, cm, 05/23/20 14:31:00 EDT, Height, 77, [...] tablet, 3 Refills, Maintenance, 06/13/21 22:19:00 EDT, [facility] #[id number], 1 tablet By Mouth Daily, 162, cm, [...] 1 Refills, Maintenance, 07/10/21 18:35:00 EDT, Tablet, [facility] #22109, Partial fill upon patient request if the prescription is for a schedule II opioid drug., 162, cm, 06/19/21 15:40:00 EDT... Start Date: 07/10/21 Status: Ordered cetirizine 10 mg oral tablet 1 tablet = 10 mg, By Mouth, Daily, For allergies., # 30 tablet, 2 Refills, Maintenance, 06/29/19 16:02:00 EDT, Tablet, [facility] #70907, 162.56, cm, 05/03/19 16:30:00 EST, Height, 72.3, kg, 09/26/18 16:01:00 EDT, Dry Weight Start Date: 06/29/19 Status: Ordered cloNIDine 0.1 mg oral tablet 0.1 mg, 1, tablet, By Mouth, 3 times a day, as needed for anxiety, # 25 tablet, Refills 0, Tot. Refills 0, Maintenance, 10/10/19 21:36:00 EDT, Route to Pharmacy Electronically, [facility] #[id number], 162.56, cm, 10/09/19 10:36:00 EDT, Height, 72... Start Date: 10/10/19 Status: Ordered diclofenac 1% topical gel = 2 Gm, Topically, 4 times a day, PRN for pain, not to exceed: 10 gm/day, # 100 Gm, 1 Refills, Maintenance, 05/29/21 16:52:00 EDT, Gel, [facility], Partial fill upon patient request if the prescription is for a schedule II opioid... Start Date: 05/29/21 Status: Ordered Dulera 200 mcg-5 mcg/inh inhalation aerosol 2 puffs, Inhalation, 2 times a day, # 1 each, 3 Refills, Maintenance, 01/28/21 16:44:00 EST, Aerosol, [facility], STOP FLOVENT, 2 puffs Inhalation 2 times a day,x30 days, 162, cm,01/28/21 16:02:00 EST, Height, 86.3, kg, 09/29/20 1... Start Date: 01/28/21 Stop Date: 05/28/21 Status: Ordered escitalopram 5 mg oral tablet 1 tablet = 5 mg, By Mouth, Daily, # 30 tablet, 11 Refills, Maintenance, 05/07/21 9:48:00 EST, Tablet, [facility] #21208, Partial fill upon patient request if the prescription is for a schedule II opioid drug., 162, cm, 05/07/21 8:46:00 EST,... Start Date: 05/07/21 Status: Ordered Flonase 50 mcg/inh nasal spray 2 sprays, Nares, Both, Daily in AM, # 16 Gm, 5 Refills, Maintenance, 07/19/19 15:19:00 EDT, [place], [facility] #[id number], 2 sprays Nares, Both Daily in AM,x30 days, 162.56, cm, 05/03/19 16:30:00 EST, Height, 72.3, kg, 09/26/18 16:01:00 EDT, Dry... Start Date: 07/19/19 Stop Date: 01/15/20 Status: Ordered fluconazole 150 mg oral tablet 1 tablet = 150 mg, By Mouth, Once, # 1 tablet, 1 Refills, Soft Stop, 01/08/21 19:37:00 EST, [facility] #[id number], 162, cm, 12/17/20 23:19:00 EDT, Height, 86.3, [...] 04/24/21 12:37:00 EST, Route to Pharmacy Electronically, [facility] #[id number], STOP HCTZ, 162, cm, 03/24/21 18:41:00 EST, [...] # 1 each, Maintenance, [facility] Blood pressure monitor neededto monitor [...] 05/12/18 14:45:33 EDT, Route to Pharmacy Electronically, [id number], [facility] Start Date: 05/12/18 Status: Ordered LORazepam 0.5 mg oral tablet 0.5 tablet = 0.25 mg, By Mouth, 2 times a day, PRN as needed for anxiety, # 20 tablet, 1 Refills, Maintenance, 05/16/19 23:11:00 EDT, Tablet, [facility] #44637, 162.56, cm, 05/03/19 16:30:00 EST, Height, 72.3, kg, 09/26/18 16:01:00 EDT, Dry... Start Date: 05/16/19 Status: Ordered losartan 100 mg oral tablet 1 tablet, By Mouth, Daily, # 30 tablet, 2 Refills, [facility] #[id number], 162, cm, 06/19/21 15:40:00 EDT, Height, 86.3, kg, 09/29/20 15:30:00 EDT, Dry Weight Start Date: 07/10/21 Status: Ordered meclizine 25 mg oral tablet 1 tablet = 25 mg, By Mouth, 2 times a day, # 30 tablet, 1 Refills, Maintenance, 07/10/21 17:25:00 EDT, Tablet, [facility] #[id number], 162, cm, 06/19/21 15:40:00 EDT, Height, 86.3, kg, 09/29/20 15:30:00 EDT, Dry Weight Start Date: 07/10/21 Status: Ordered multivitamin with iron Multiple Vitamins with Iron oral tablet 1 tablet, By Mouth, Daily, # 30 tablet, 11 Refills, Maintenance, 05/07/21 9:45:00 EST, Tablet, [facility] #[id number], Partial fill upon patient request if the prescription is for a schedule II opioid drug., 1 tablet By Mouth Daily, 162, cm, 030... Start Date: 05/07/21 Status: Ordered Narcan 4 mg/0.1 mL nasal spray = 4 mg, Inhalation, Once, # 2 each, 1 Refills, Soft Stop, 10/29/20 12:23:00 EDT, [facility] #[id number], Partial fill upon patient request if the [...] each, 0 Refills, Maintenance, 06/04/20 16:46:00 EDT, [facility] #[id number], OK to sub for any gallon prep, used as directed, 162.56, cm, 05/23/20 14:31:00 EDT, Height, 77, kg, 03/21/20 15:04:00 EST, Dry We... Start Date: 06/04/20 Status: Ordered predniSONE 50 mg oral tablet 1 tablet = 50 mg, By Mouth, Daily, # 7 tablet, 0 Refills, Maintenance, 01/28/21 16:37:00 EST, Tablet, [facility], Partial fill upon patient request if the prescription is for a schedule II opioid drug., 162, cm, 01/28/21 16:02:00 E... Start Date: 01/28/21 Stop Date: 02/04/21 Status: Ordered Senna 8.6 mg oral tablet 1-3 tablet, By Mouth, Daily, for constipation, # 90 tablet, Refills 5, Tot. Refills 5, Maintenance,03/26/20 15:25:00 EST, Route to Pharmacy Electronically, [facility] #[id number] Tablet, 162.56, cm, 03/21/20 15:01:00 EST, Height, [...] 5 Refills, Maintenance, 04/24/21 12:36:00 EST, Tablet, [facility] #88765, STOP HCTZ, 162, cm, 03/24/21 18:41:00 EST, [...] under the tongue increase in dose Iveth [id number] coveringfor [place] due on/after 07/25/2021, # 35 film, 0 Refills, Maintenance, 07/25/21 12:07:00 EDT, Film, [facility], 2.5 film Subl... Start Date: 07/25/21 Stop Date: 08/08/21 Status: Ordered SUMAtriptan 25 mg oral tablet 1 tablet = 25 mg, By Mouth, Daily, PRN as needed for migraine headache, may repeat dose after 2 hours up to a maximum of 2, # 6 tablet, 1 Refills, Maintenance, 03/02/20 19:47:00 EST, Tablet, [facility] #52536, 162.56, cm, 01/04/20 9:40:00 ES... Start Date: 03/02/20 Status: Ordered Zofran 4 mg oral tablet 1 tablet = 4 mg, By Mouth, 2 times a day, PRN Nausea & Vomiting, # 10 tablet, 1 Refills, Maintenance, 06/19/21 17:01:00 EDT, Tablet, [facility] #63025, 162, cm, 06/19/21 15:40:00 EDT, Height, 86.3, kg, 09/29/20 15:30:00 EDT, Dry Weight Start Date: 06/19/21 Status: Ordered zolpidem 5 mg oral tablet 1 tablet = 5 mg, By Mouth, Daily at bedtime, PRN as needed for sleep, # 30 tablet, 0 Refills, Maintenance, 06/28/21 16:47:00 EDT, [facility] #[id number], Partial fill upon patient request if theprescription [...] Obese class I(Confirmed) Active Opioid dependence(Confirmed) Active *[phone] Care Partn er April Saavedra(Confirmed) Active Health [...] tolerance, and QD need over. 2genotype 02/02: [id number] is only mutation detected 3death of sister, caring for mother w/ dementia 4repeat screening colonoscopy in 2020 Social History Social History Type Response Smoking Status Former smoker, quit more than 30 days ago entered on: 10/29/20 Sex
--- OUTSIDE RECORDS SUMMARY | 2022-12-13 21:34 | XMS_ITS | Continuity of Care Document ---
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 by RN [...] 11/11/22 10:19:00 EDT, 11/04/22 10:19:00 EDT, Tablet, [facility] #[id number], Partial fill upon patient request if the prescription is f... Start Date: 11/04/22 Stop Date: 11/11/22 Status: Ordered acyclovir 400 mg oral tablet 1 tablet = 400 mg, By Mouth, 2 times a day, # 10 tablet, 5 Refills, Maintenance, 01/08/21 18:41:00 EST, [facility] #[id number], 162, cm, 12/17/20 23:19:00 EDT, Height, 86.3, kg, 09/29/20 15:30:00 EDT, Dry Weight Start Date: 01/08/21 Stop Date: 02/07/21 Status: Ordered Albuterol (Eqv-ProAir HFA) 90 mcg/inh inhalation aerosol 2 puffs, Inhalation, Every 4 hours, PRN NEEDED FOR WHEEZING/SHORTNESS OF BREATH, USE WITH SPACERCHAMBER, # 8.5 Gm, 5 Refills, [facility] #38024, 16, INHALE 2 PUFFS INTO LUNGS EVERY 4 HOURS NEEDED FOR WHEEZING/SHORTNESS OF BREATH. USE... Start Date: 11/13/20 Status: Ordered albuterol 0.083% inhalation solution 3 mL = 2.5 mg, Inhalation, Every 6 hours, PRN Wheezing/Shortness of Breath, # 60 each, 0 Refills, Maintenance, 06/07/20 12:51:00 EDT, Solution, [facility] #[id number], 162.56, cm, 05/23/20 14:31:00 EDT, Height, 77, [...] Gm, 2 Refills, Maintenance, 08/30/22 11:09:00 EDT, [facility] #50858, 1 applic... Start Date: 08/30/22 Status: Ordered benzoyl peroxide 2.5% topical gel 1 application, Topically, 2 times a day, keep away from eyes and mucous membranes. clean affected area before application. Start daily and increase to twice a day if tolerated., # 60 Gm, 3 Refills, Maintenance, 09/08/22 22:51:00 EDT, [facility]... Start Date: 09/08/22 Status: Ordered Biktarvy oral tablet 1 tablet, By Mouth, Daily, # 30 tablet, 12 Refills, Maintenance, 04/17/22 7:54:00 [facility]17302, 1 tablet By Mouth Daily, 162.56, cm, 04/16/22 16:00:00 EST, Height, 87.6, kg, 10/24/21 8:00:00 EDT, Dry Weight Start Date: 04/17/22 Status: Ordered Biktarvy oral tablet See Instructions, TAKE 1 TABLET BY MOUTH DAILY, # 90 tablet, 0 Refills, Maintenance, 07/15/22 13:50:00 EDT, [facility] #[id number], 90, TAKE 1 TABLET BY MOUTH DAILY, [...] 1 Refills, Maintenance, 07/10/21 18:35:00 EDT, Tablet, [facility] #69630, Partial fill upon patient request if the [...] 08/12/22 15:06:00 EDT, Route to Pharmacy Electronically, [facility] #66633, 162.56, cm, 07/30/22 10:55:00 EDT, Height, 79.... Start Date: 08/12/22 Status: Ordered Colace Clear 50 mg oral capsule 1 capsule = 50 mg, By Mouth, 2 times a day, PRN as needed for constipation, # 60 capsule, 0 Refills, Maintenance, 12/05/21 15:09:00 EDT, [facility] #62044, Partial fill upon patient requestif the prescription is for a schedule II opioid nhi... Start Date: 12/05/21 Status: Ordered diclofenac 1% topical gel = 2 Gm, Topically, 4 times a day, PRN for pain, not to exceed: 10 gm/day, # 100 Gm, 1 Refills, Maintenance, 05/29/21 16:52:00 EDT, Gel, [facility], Partial fill upon patient request if the prescription is for a schedule II opioid... Start Date: 05/29/21 Status: Ordered Dulera 200 mcg-5 mcg/inh inhalation aerosol 2 puffs, Inhalation, 2 times a day, # 1 each, 3 Refills, Maintenance, 01/28/21 16:44:00 EST, Aerosol, [facility], STOP FLOVENT, 2 puffs Inhalation 2 times a day,x30 days, 162, cm,01/28/21 16:02:00 EST, Height, 86.3, kg, 09/29/20 1... Start Date: 01/28/21 Stop Date: 05/28/21 Status: Ordered escitalopram 20 mg oral tablet 1 tablet = 20 mg, By Mouth, Daily, # 90 tablet, 3 Refills, Maintenance, 11/04/22 16:35:00 EDT, Tablet, [facility] #02470, 162.56, cm, 10/20/22 7:18:00 EDT, Height, 79.54, kg, 07/30/22 10:55:00 EDT, Dry Weight Start Date: 11/04/22 Status: Ordered ferrous fumarate 324 mg oral tablet 1 tablet = 324 mg, By Mouth, Every other day, # 45 tablet, 0 Refills, Maintenance, 07/31/22 11:19:00 EDT, Tablet, [facility] #40065, Partial fill upon patient request if the [...] Gm, 5 Refills, Maintenance, 07/19/19 15:19:00 EDT, [place], [facility] #18899, 2 sprays Nares, Both Daily in AM,x30 [...] 09/24/22 17:20:00 EDT, Route to Pharmacy Electronically, [facility] #40536, 162.56, cm, 09/17/22 12:56:00 EDT, Heigh... Start [...] 1 each, Maintenance, covering for [facility] Blood pressure monitor neededto monitor blood [...] 2 Refills, Maintenance, 07/30/22 12:17:00 EDT, Syrup, [facility] #85570, 30 mL By Mouth 4 times a day, 162.56, cm, 07/30/22 10:55:00 EDT,Height, 79.54, kg, 07/30/22 10:55:00 EDT, Dry Weight Start Date: 07/30/22 Status: Ordered losartan 100 mg oral tablet 1 tablet, By Mouth, Daily, # 30 tablet, 5 Refills, [facility] #37406, 162, cm, 10/09/21 16:19:00 EDT, Height, 86.3, kg, 09/29/20 15:30:00 EDT, Dry Weight Start Date: 10/20/21 Status: Ordered meclizine 25 mg oral tablet 1 tablet = 25 mg, By Mouth, 2 times a day, # 30 tablet, 1 Refills, Maintenance, 07/10/21 17:25:00 EDT, Tablet, [facility] #[id number], 162, cm, 06/19/21 15:40:00 EDT, Height, 86.3, kg, 09/29/20 15:30:00 EDT, Dry Weight Start Date: 07/10/21 Status: Ordered multivitamin with iron Multiple Vitamins with Iron oral tablet 1 tablet, By Mouth, Daily, # 30 tablet, 11 Refills, Maintenance, 04/17/22 7:51:00 EST, Tablet, [facility] #32155, 1 tablet By Mouth Daily, 162.56, cm, 04/16/22 16:00:00 EST, Height, 87.6, kg, 10/24/21 8:00:00 EDT, Dry Weight Start Date: 04/17/22 Status: Ordered Narcan 4 mg/0.1 mL nasal spray = 4 mg, Inhalation, Once, # 2 each, 1 Refills, Soft Stop, 10/29/20 12:23:00 EDT, [facility] #[id number], Partial fill upon patient request if the prescription is for a schedule II opioid drug., 162, cm, 09/29/20 15:30:00 EDT, Height, 86.3, kg, 08... Start Date: 10/29/20 Status: Ordered ondansetron 4 mg oral tablet 1 tablet = 4 mg, By Mouth, Daily, PRN Nausea & Vomiting, # 10 tablet, 3 Refills, Maintenance, 06/25/22 17:28:00 EDT, [facility] #[id number], 162.56, cm, 06/25/22 16:16:00 EDT, Height, 87.6, [...] 2 Refills, Maintenance, 08/21/22 17:50:00 EDT, Tablet, [facility] #58292, this is correct dose. 200mg Rx just sent by mistake., 162.56, cm, 08/20/22 13:54:00 EDT, Height, 79.54, kg, 06... Start Date: 08/21/22 Status: Ordered Senna 8.6 mg oral tablet 1-3 tablet, By Mouth, Daily, for constipation, # 90 tablet, Refills 5, Tot. Refills 5, Maintenance,03/26/20 15:25:00 EST, Route to Pharmacy Electronically, [facility] #[id number] Tablet, 162.56, cm, 03/21/20 15:01:00 EST, Height, [...] 09/24/22 17:20:00 EDT, Route to Pharmacy Electronically, [facility] #[id number], 162.56, cm, 09/17/22 12:56:00 EDT, David... Start Date: 09/24/22 Status: Ordered Suboxone 8 mg-2 mg Sublingual Film 2 film, Sublingual, Daily, [id number] [place] dissolve under the tongue may fill less due 11/11/2022,# 28 film, 0 Refills, Maintenance, 11/06/22 18:48:00 EDT, Film, [facility], 2 film Sublingual Daily,x14 days,Instr:[id number] Li... Start Date: 11/06/22 Stop Date: 11/20/22 Status: Ordered SUMAtriptan 25 mg oral tablet 1 tablet = 25 mg, By Mouth, Daily, PRN as needed for migraine headache, may repeat dose after 2 hours up to a maximum of 2, # 6 tablet, 1 Refills, Maintenance, 03/02/20 19:47:00 EST, Tablet, [facility] #[id number], 162.56, cm, 01/04/20 9:40:00 ES... 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 3death of sister, caring for mother w/ dementia 4repeat screening colonoscopy in 2020 Social History Social History Type Response Smoking Status Former smoker, quit more than 30 days ago entered on: 12/05/21 Sex Patient Care team information Care Team Personnel Name: Kahlil Sun MD Position: [facility] Physician - Primary Care Member Role: PCP Address: Address: [address] [place] [address]- Name: Sharri Prince Position: [facility] PCO Associate Professional Member Role: Lifetime Consulting Provider Care Team Related Persons Name: SHANITA MENDOZA Address: home [address] [place] [address] Name: SHANITA MENDOZA Address: home [address] Name: ULICES PEARSON Name: ULICES ESPARZA Address: [place] [address] Name: LALA LI
--- OUTSIDE RECORDS SUMMARY | 2022-12-13 21:34 | XMS_ITS | Continuity of Care Document ---
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 by [...] tablet, 5 Refills, Maintenance, 01/08/21 18:41:00 EST, [facility] #[id number], 162, cm, 12/17/20 23:19:00 EDT, Height, 86.3, kg, 09/29/20 15:30:00 EDT, Dry Weight Start Date: 01/08/21 Stop Date: 02/07/21 Status: Ordered Albuterol (Eqv-ProAir HFA) 90 mcg/inh inhalation aerosol 2 puffs, Inhalation, Every 4 hours, PRN NEEDED FOR WHEEZING/SHORTNESS OF BREATH, USE WITH SPACERCHAMBER, # 8.5 Gm, 5 Refills, [facility] #[id number], 16, INHALE 2 PUFFS INTO LUNGS EVERY 4 HOURS NEEDED FOR WHEEZING/SHORTNESS OF BREATH. USE... Start Date: 11/13/20 Status: Ordered albuterol 0.083% inhalation solution 3 mL = 2.5 mg, Inhalation, Every 6 hours, PRN Wheezing/Shortness of Breath, # 60 each, 0 Refills, Maintenance, 06/07/20 12:51:00 EDT, Solution, [facility] #04189, 162.56, cm, 05/23/20 14:31:00 EDT, Height, 77, [...] 2 Refills, Maintenance, 08/30/22 11:09:00 EDT, Gel, [facility] #99725, 1 applic... Start Date: 08/30/22 Status: Ordered benzoyl peroxide 2.5% topical gel 1 application, Topically, 2 times a day, keep away from eyes and mucous membranes. clean affected area before application. Start daily and increase to twice a day if tolerated., # 60 Gm, 3 Refills, Maintenance, 09/08/22 22:51:00 EDT, [facility]... Start Date: 09/08/22 Status: Ordered Biktarvy oral tablet 1 tablet, By Mouth, Daily, # 30 tablet, 12 Refills, Maintenance, 04/17/22 7:54:00 EST, [facility] #02079, 1 tablet By Mouth Daily, 162.56, cm, 04/16/22 16:00:00 EST, Height, 87.6, kg, 10/24/21 8:00:00 EDT, Dry Weight Start Date: 04/17/22 Status: Ordered Biktarvy oral tablet See Instructions, TAKE 1 TABLET BY MOUTH DAILY, # 90 tablet, 0 Refills, Maintenance, 07/15/22 13:50:00 EDT, [facility] #40072, 90, TAKE 1 TABLET BY MOUTH DAILY, [...] 1 Refills, Maintenance, 07/10/21 18:35:00 EDT, Tablet, [facility] #95743, Partial fill upon patient request if the [...] 08/12/22 15:06:00 EDT, Route to Pharmacy Electronically, [facility] #65243, 162.56, cm, 07/30/22 10:55:00 EDT, Height, 79.... Start Date: 08/12/22 Status: Ordered Colace Clear 50 mg oral capsule 1 capsule = 50 mg, By Mouth, 2 times a day, PRN as needed for constipation, # 60 capsule, 0 Refills, Maintenance, 12/05/21 15:09:00 EDT, [facility] #04547, Partial fill upon patient requestif the prescription is for a schedule II opioid nhi... Start Date: 12/05/21 Status: Ordered diclofenac 1% topical gel = 2 Gm, Topically, 4 times a day, PRN for pain, not to exceed: 10 gm/day, # 100 Gm, 1 Refills, Maintenance, 05/29/21 16:52:00 EDT, Gel, [facility], Partial fill upon patient request if the prescription is for a schedule II opioid... Start Date: 05/29/21 Status: Ordered Dulera 200 mcg-5 mcg/inh inhalation aerosol 2 puffs, Inhalation, 2 times a day, # 1 each, 3 Refills, Maintenance, 01/28/21 16:44:00 EST, Aerosol, [facility], STOP FLOVENT, 2 puffs Inhalation 2 times a day,x30 days, 162, cm,01/28/21 16:02:00 EST, Height, 86.3, kg, 09/29/20 1... Start Date: 01/28/21 Stop Date: 05/28/21 Status: Ordered escitalopram 20 mg oral tablet 1 tablet = 20 mg, By Mouth, Daily, # 90 tablet, 0 Refills, Maintenance, 07/30/22 12:03:00 EDT, Tablet, [facility] #67974, Partial fill upon patient request if the prescription is for a schedule II opioid drug., 162.56, cm, 07/30/22 10:55:00... Start Date: 07/30/22 Status: Ordered ferrous fumarate 324 mg oral tablet 1 tablet = 324 mg, By Mouth, Every other day, # 45 tablet, 0 Refills, Maintenance, 07/31/22 11:19:00 EDT, [facility] #[id number], Partial fill upon patient request if the [...] Gm, 5 Refills, Maintenance, 07/19/19 15:19:00 EDT, [place], [facility] #32124, 2 sprays Nares, Both Daily in AM,x30 [...] 09/24/22 17:20:00 EDT, Route to Pharmacy Electronically, [facility] #[id number], 162.56, cm, 09/17/22 12:56:00 EDT, Heigh... Start [...] Instructions, # 1 each, Maintenance, covering for [facility] Blood pressure monitor neededto monitor blood pressure [...] 2 Refills, Maintenance, 07/30/22 12:17:00 EDT, Syrup, [facility] #70437, 30 mL By Mouth 4 times a day, 162.56, cm, 07/30/22 10:55:00 EDT,Height, 79.54, kg, 07/30/22 10:55:00 EDT, Dry Weight Start Date: 07/30/22 Status: Ordered losartan 100 mg oral tablet 1 tablet, By Mouth, Daily, # 30 tablet, 5 Refills, [facility] #40113, 162, cm, 10/09/21 16:19:00 EDT, Height, 86.3, kg, 09/29/20 15:30:00 EDT, Dry Weight Start Date: 10/20/21 Status: Ordered meclizine 25 mg oral tablet 1 tablet = 25 mg, By Mouth, 2 times a day, # 30 tablet, 1 Refills, Maintenance, 07/10/21 17:25:00 EDT, Tablet, [facility] #42404, 162, cm, 06/19/21 15:40:00 EDT, Height, 86.3, kg, 09/29/20 15:30:00 EDT, Dry Weight Start Date: 07/10/21 Status: Ordered multivitamin with iron Multiple Vitamins with Iron oral tablet 1 tablet, By Mouth, Daily, # 30 tablet, 11 Refills, Maintenance, 04/17/22 7:51:00 EST, Tablet, [facility] #20819, 1 tablet By Mouth Daily, 162.56, cm, 04/16/22 16:00:00 EST, Height, 87.6, kg, 10/24/21 8:00:00 EDT, Dry Weight Start Date: 04/17/22 Status: Ordered Narcan 4 mg/0.1 mL nasal spray = 4 mg, Inhalation, Once, # 2 each, 1 Refills, Soft Stop, 10/29/20 12:23:00 EDT, [facility] #06999, Partial fill upon patient request if the prescription is for a schedule II opioid drug., 162, cm, 09/29/20 15:30:00 EDT, Height, 86.3, kg, 08... Start Date: 10/29/20 Status: Ordered ondansetron 4 mg oral tablet 1 tablet = 4 mg, By Mouth, Daily, PRN Nausea & Vomiting, # 10 tablet, 3 Refills, Maintenance, 06/25/22 17:28:00 EDT, [facility] #47313, 162.56, cm, 06/25/22 16:16:00 EDT, Height, 87.6, [...] 2 Refills, Maintenance, 08/21/22 17:50:00 EDT, Tablet, [facility] #16957, this is correct dose. 200mg Rx just sent by mistake., 162.56, cm, 08/20/22 13:54:00 EDT, Height, 79.54, kg, 06... Start Date: 08/21/22 Status: Ordered Senna 8.6 mg oral tablet 1-3 tablet, By Mouth, Daily, for constipation, # 90 tablet, Refills 5, Tot. Refills 5, Maintenance,03/26/20 15:25:00 EST, Route to Pharmacy Electronically, [facility] #51950 Tablet, 162.56, cm, 03/21/20 15:01:00 EST, Height, [...] 09/24/22 17:20:00 EDT, Route to Pharmacy Electronically, [facility] #95389, 162.56, cm, 09/17/22 12:56:00 EDT, [place]... Start Date: 09/24/22 Status: Ordered Suboxone 8 mg-2 mg Sublingual Film 2 film, Sublingual, Daily, [id number] [place] dissolve under the tongue may fill less due 10/26/2022,# 28 film, 0 Refills, Maintenance, 10/15/22 16:24:00 EDT, Film, [facility], 2 film Sublingual Daily,x14 days,Instr:[id number] Li... Start Date: 10/15/22 Stop Date: 10/29/22 Status: Ordered SUMAtriptan 25 mg oral tablet 1 tablet = 25 mg, By Mouth, Daily, PRN as needed for migraine headache, may repeat dose after 2 hours up to a maximum of 2, # 6 tablet, 1 Refills, Maintenance, 03/02/20 19:47:00 EST, Tablet, [facility] #40723, 162.56, cm, 01/04/20 9:40:00 ES... 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 2genotype 02/02: [id number] is only mutation detected 3death of sister, caring for mother w/ dementia 4repeat screening colonoscopy in 2020 Social History Social History Type Response Smoking Status Former smoker, quit more than 30 days ago entered on: 12/05/21 Sex Patient Care team information Care Team Personnel Name: Kahlil Sun MD Position: [facility] Physician - Primary Care Member Role: PCP Address: Address: [address] [place] [address] Name: Sharri Prince Position: [facility] PCO Associate Professional Member Role: Lifetime Consulting Provider Care Team Related Persons Name: SHANITA MENDOZA Address: home [address] [place] [address] Name: SHANITA MENDOZA Address: home [address] Name: ULICES PEARSON Name: ULICES ESPARZA Address: [place] [address] Name: LALA LI
--- OUTSIDE RECORDS SUMMARY | 2022-12-13 21:34 | XMS_ITS | Continuity of Care Document ---
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 by RN 9Admin Note: Admin. by RN 10Admin Note: Admin. 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 17Admin Note: BY LEXI Agudelo 18Admin Note: [...] tablet, 5 Refills, Maintenance, 01/26/20 16:20:00 EST, [facility], 162.56, cm, 10/09/19 10:36:00 EDT, Height, 72.3, kg, 09/26/18 16:01:00 EDT, Dry Weight Start Date: 01/26/20 Stop Date: 02/25/20 Status: Ordered albuterol 0.083% inhalation solution 3 mL = 2.5 mg, Inhalation, Every 6 hours, PRN Wheezing/Shortness of Breath, # 60 each, 0 Refills, Maintenance, 06/07/20 12:51:00 EDT, Solution, [facility] #[id number], 162.56, cm, 05/23/20 14:31:00 EDT, Height, 77, [...] tablet, 3 Refills, Maintenance, 03/02/20 19:50:00 EST, [facility] #38529, 1 tablet By Mouth Daily, 162.56, cm, 01/04/20 9:40:00 EST, Height, 72.3, kg, 09/26/18 16:01:00 EDT, Dry Weight Start Date: 03/02/20 Status: Ordered Blood Pressure Meter Blood Pressure Meter, See Instructions, # 1 each, Refills 0, Tot. Refills 0, Maintenance, Use for, 07/11/18 16:11:47 EDT, Compound Start Date: 07/11/18 Status: Ordered buprenorphine-naloxone 2 mg-0.5 mg sublingual film 1 film, Sublingual, Daily, [place] [id number], # 14 film, 0 Refills, Maintenance, 06/17/20 16:56:00 EDT, [facility] #[id number], Partial fill on request., 1 film Sublingual Daily,Instr:[place]ino [id number], 163, cm, 06/08/20 17:25:00 EDT, Height, 82.... Start Date: 06/17/20 Status: Ordered buprenorphine-naloxone 2 mg-0.5 mg sublingual film 0.25 each, Sublingual, Daily, [place] [id number], # 8 film, 0 Refills, Maintenance, 12/15/19 19:00:00 EDT, [facility] #[id number], Partial fill on request., 0.25 each Sublingual Daily,Instr:[place] [id number], 162.56, cm, 10/09/19 10:36:00 EDT, Hei... Start Date: 12/15/19 Status: Ordered cetirizine 10 mg oral tablet 1 tablet = 10 mg, By Mouth, Daily, For allergies., # 30 tablet, 2 Refills, Maintenance, 06/29/19 16:02:00 EDT, Tablet, [facility] #31603, 162.56, cm, 05/03/19 16:30:00 EST, Height, 72.3, kg, 09/26/18 16:01:00 EDT, Dry Weight Start Date: 06/29/19 Status: Ordered cloNIDine 0.1 mg oral tablet 0.1 mg, 1, tablet, By Mouth, 3 times a day, as needed for anxiety, # 25 tablet, Refills 0, Tot. Refills 0, Maintenance, 10/10/19 21:36:00 EDT, Route to Pharmacy Electronically, [facility] #[id number], 162.56, cm, 10/09/19 10:36:00 EDT, Height, 72... [...] 5 Refills, Maintenance, 07/19/19 15:19:00 EDT, [place], [facility] #47571, 2 sprays Nares, Both Daily in AM,x30 days, 162.56, cm, 05/03/19 16:30:00 EST, Height, 72.3, kg, 09/26/18 16:01:00 EDT, Dry... Start Date: 07/19/19 Stop Date: 01/15/20 Status: Ordered Flovent HFA 44 mcg/inh inhalation aerosol 1 puffs, Inhalation, 2 times a day, # 1 each, 5 Refills, Maintenance, 06/07/20 12:52:00 EDT, Aerosol, [facility] #84128, 162.56, cm, 05/23/20 14:31:00 EDT, Height, 77, [...] # 1 each, Maintenance, covering for [facility] Blood pressure monitor neededto monitor blood [...] 3 Refills, Maintenance, 03/02/20 19:48:00 EST, Tablet, [facility] #78590, 30 day supply preferred for present, 162.56, [...] 05/12/18 14:45:33 EDT, Route to Pharmacy Electronically, [id number], [facility] Start Date: 05/12/18 Status: Ordered LORazepam 0.5 mg oral tablet 0.5 tablet = 0.25 mg, By Mouth, 2 times a day, PRN as needed for anxiety, # 20 tablet, 1 Refills, Maintenance, 05/16/19 23:11:00 EDT, Tablet, [facility] #40071, 162.56, cm, 05/03/19 16:30:00 EST, Height, 72.3, kg, 09/26/18 16:01:00 EDT, Dry... Start Date: 05/16/19 Status: Ordered losartan 100 mg oral tablet 1 tablet = 100 mg, By Mouth, Daily, # 30 tablet, 11 Refills, Maintenance, 06/29/19 15:59:00 EDT, Tablet, [facility] #04719, 162.56, cm, 05/03/19 16:30:00 EST, Height, 72.3, kg, 09/26/18 16:01:00 EDT, Dry Weight Start Date: 06/29/19 Status: Ordered meclizine 25 mg oral tablet 1 tablet = 25 mg, By Mouth, 2 times a day, # 30 tablet, 1 Refills, Maintenance, 03/30/19 15:49:00 EST, Tablet, [facility] #14287, 162.56, cm, 03/08/19 14:34:00 EST, Height, 72.3, [...] each, 0 Refills, Maintenance, 06/04/20 16:46:00 EDT, [facility] #54418, OK to sub for any gallon prep, [...] 12:51:00 EDT, Aerosol, Route to Pharmacy Electronically, [id number], [facility] #90194, 1... Start Date: 06/07/20 Status: Ordered Senna 8.6 mg oral tablet 1-3 tablet, By Mouth, Daily, for constipation, # 90 tablet, Refills 5, Tot. Refills 5, Maintenance,03/26/20 15:25:00 EST, Route to Pharmacy Electronically, [facility] #[id number] Tablet, 162.56, cm, 03/21/20 15:01:00 EST, Height, 77, kg, ... Start Date: 03/26/20 Status: Ordered Spacer for inhalers Spacer for inhalers, See Instructions, # 1 each, Refills 0, Tot. Refills 0, Maintenance, Use with inhalers as directed. Stateless., 06/07/19 15:07:00 EDT, Compound, 162.56, cm, 05/03/19 16:30:00 EST, Height, 72.3, kg, 09/26/18 16:01:00 EDT, Dry Weight Start Date: 06/07/19 Status: Ordered SUMAtriptan 25 mg oral tablet 1 tablet = 25 mg, By Mouth, Daily, PRN as needed for migraine headache, may repeat dose after 2 hours up to a maximum of 2, # 6 tablet, 1 Refills, Maintenance, 03/02/20 19:47:00 EST, Tablet, [facility] #74553, 162.56, cm, 01/04/20 9:40:00 ES... Start Date: 03/02/20 Status: Ordered Zofran 4 mg oral tablet 1 tablet = 4 mg, By Mouth, 2 times a day, PRN Nausea & Vomiting, # 10 tablet, 0 Refills, Maintenance, 05/04/20 17:09:00 EST, Tablet, [facility] #27597, 162.56, cm, 05/03/20 9:23:00 EST,Height, 77, kg, [...] 2016 Active Migraine(Confirmed) Active Opioid dependence(Confirmed) Active *[id number] Care Partn er April Saavedra(Confirmed) Active Health [...] tolerance, and QD need over. 2genotype 02/02: [id number] is only mutation detected 3death of sister, caring for mother w/ dementia 4repeat screening colonoscopy in 2020 Social History Social History Type Response Smoking Status Former smoker, quit more than 30 days ago entered on: 05/24/18 Sex
--- OUTSIDE RECORDS SUMMARY | 2022-12-13 21:34 | XMS_ITS | Continuity of Care Document ---
Author Name Unknown Organization [facility] Address [address] [place] [address]- Care Team Providers Care Patternmaker All Around Name Role Phone Dino PEREZ, Kahlil Barrera Primary Care Physician Encounter [facility] Date(s): 02/28/20 - 03/29/20 [facility] [place] [address] [place] [address]- Allergies, Adverse Reactions, Alerts Substance Reaction Severity [...] tetanus-diphtheria toxoids (Td) 03/10/01 Given 1Result Comment: [facility] 2Result Comment: pharmacy 3Location History: [place] 4Admin [...] tablet, 5 Refills, Maintenance, 01/26/20 16:20:00 EST, [facility], 162.56, cm, 10/09/19 10:36:00 EDT, Height, 72.3, kg, 09/26/18 16:01:00 EDT, Dry Weight Start Date: 01/26/20 Stop Date: 02/25/20 Status: Ordered albuterol 0.083% inhalation solution 3 mL = 2.5 mg, Inhalation, Every 6 hours, PRN Wheezing/Shortness of Breath, # 60 each, 0 Refills, Maintenance, 06/07/19 14:59:00 EDT, Solution, [facility] #[id number], 162.56, cm, 05/03/19 16:30:00 EST, Height, 72.3, kg, 09/26/18 16:01:00 EDT, Start Date: 06/07/19 Status: Ordered Biktarvy oral tablet 1 tablet, By Mouth, Daily, # 90 tablet, 3 Refills, Maintenance, 03/02/20 19:50:00 EST, [facility] #86477, 1 tablet By Mouth Daily, 162.56, cm, 01/04/20 9:40:00 EST, Height, 72.3, kg, 09/26/18 16:01:00 EDT, Dry Weight Start Date: 03/02/20 Status: Ordered Blood Pressure Meter Blood Pressure Meter, See Instructions, # 1 each, Refills 0, Tot. Refills 0, Maintenance, Use for, 07/11/18 16:11:47 EDT, Compound Start Date: 07/11/18 Status: Ordered buprenorphine-naloxone 2 mg-0.5 mg sublingual film 1 film, Sublingual, Daily, [place] [id number], # 14 film, 0 Refills, Maintenance, 02/08/20 16:47:00 EST, [facility] #08363, Partial fill on request., 1 film Sublingual Daily,Instr:[place] [id number], 162.56, cm, 01/04/20 9:40:00 EST, Height, 7... Start Date: 02/08/20 Status: Ordered buprenorphine-naloxone 2 mg-0.5 mg sublingual film 0.25 each, Sublingual, Daily, [place] [id number], # 8 film, 0 Refills, Maintenance, 12/15/19 19:00:00 EDT, [facility] #64730, Partial fill on request., 0.25 each Sublingual Daily,Instr:[place] [id number], 162.56, cm, 10/09/19 10:36:00 EDT, Hei... Start Date: 12/15/19 Status: Ordered cetirizine 10 mg oral tablet 1 tablet = 10 mg, By Mouth, Daily, For allergies., # 30 tablet, 2 Refills, Maintenance, 06/29/19 16:02:00 EDT, Tablet, [facility] #66903, 162.56, cm, 05/03/19 16:30:00 EST, Height, 72.3, kg, 09/26/18 16:01:00 EDT, Dry Weight Start Date: 06/29/19 Status: Ordered cloNIDine 0.1 mg oral tablet 0.1 mg, 1, tablet, By Mouth, 3 times a day, as needed for anxiety, # 25 tablet, Refills 0, Tot. Refills 0, Maintenance, 10/10/19 21:36:00 EDT, Route to Pharmacy Electronically, [facility] #[id number], 162.56, cm, 10/09/19 10:36:00 EDT, Height, 72... [...] Gm, 5 Refills, Maintenance, 07/19/19 15:19:00 EDT, [place], [facility] #90902, 2 sprays Nares, Both Daily in AM,x30 days, 162.56, cm, 05/03/19 16:30:00 EST, Height, 72.3, kg, 09/26/18 16:01:00 EDT, Dry... Start Date: 07/19/19 Stop Date: 01/15/20 Status: Ordered Flovent HFA 44 mcg/inh inhalation aerosol 1 puffs, Inhalation, 2 times a day, # 1 each, 5 Refills, Maintenance, 06/29/19 16:26:00 EDT, Aerosol, [facility] #50783, 162.56, cm, 05/03/19 16:30:00 EST, Height, 72.3, [...] each, Maintenance, covering for [facility] Blood pressure monitor neededto monitor blood pressure [...] 3 Refills, Maintenance, 03/02/20 19:48:00 EST, Tablet, [facility] #79080, 30 day supply preferred for present, 162.56, [...] 05/12/18 14:45:33 EDT, Route to Pharmacy Electronically, [id number], [facility] Start Date: 05/12/18 Status: Ordered LORazepam 0.5 mg oral tablet 0.5 tablet = 0.25 mg, By Mouth, 2 times a day, PRN as needed for anxiety, # 20 tablet, 1 Refills, Maintenance, 05/16/19 23:11:00 EDT, Tablet, [facility] #82984, 162.56, cm, 05/03/19 16:30:00 EST, Height, 72.3, kg, 09/26/18 16:01:00 EDT, Dry... Start Date: 05/16/19 Status: Ordered losartan 100 mg oral tablet 1 tablet = 100 mg, By Mouth, Daily, # 30 tablet, 11 Refills, Maintenance, 06/29/19 15:59:00 EDT, Tablet, [facility] #34414, 162.56, cm, 05/03/19 16:30:00 EST, Height, 72.3, kg, 09/26/18 16:01:00 EDT, Dry Weight Start Date: 06/29/19 Status: Ordered meclizine 25 mg oral tablet 1 tablet = 25 mg, By Mouth, 2 times a day, # 30 tablet, 1 Refills, Maintenance, 03/30/19 15:49:00 EST, Tablet, [facility] #95006, 162.56, cm, 03/08/19 14:34:00 EST, Height, 72.3, [...] 15:00:00 EDT, Aerosol, Route to Pharmacy Electronically, [id number], [facility] #62489, 1... Start Date: 06/07/19 Status: Ordered Senna 8.6 mg oral tablet 1-3 tablet, By Mouth, Daily, for constipation, # 90 tablet, Refills 5, Tot. Refills 5, Maintenance,03/26/20 15:25:00 EST, Route to Pharmacy Electronically, [facility] #48365 Tablet, 162.56, cm, 03/21/20 15:01:00 EST, Height, [...] 1 Refills, Maintenance, 03/02/20 19:47:00 EST, Tablet, [facility] #27429, 162.56, cm, 01/04/20 9:40:00 ES... Start Date: 03/02/20 Status: Ordered Zofran 4 mg oral tablet 1 tablet = 4 mg, By Mouth, 2 times a day, PRN Nausea & Vomiting, # 10 tablet, 0 Refills, Maintenance, 03/02/20 19:47:00 EST, Tablet, [facility] #81390, 162.56, cm, 01/04/20 9:40:00 EST,Height, 72.3, kg, [...] 2016 Active Migraine(Confirmed) Active Opioid dependence(Confirmed) Active *[id number] Care Partn April Saavedra(Confirmed) Active Health care [...] tolerance, and QD need over. 2genotype 02/02: [id number] is only mutation detected 3death of sister, caring for mother w/ dementia 4repeat screening colonoscopy in 2020 Social History Social History Type Response Smoking Status Former smoker, quit more than 30 days ago entered on: 05/24/18 Sex
--- OUTSIDE RECORDS SUMMARY | 2022-12-13 21:34 | XMS_ITS | Continuity of Care Document ---
Author Name Unknown Organization [facility] Address [address] [place] [address]- Care Team Providers Care Signal Wirer Name Role Phone Dino PEREZ, Kahlil Barrera Primary Care Physician [phone] Encounter [facility] Date(s): 07/31/22 - 08/30/22 [facility] [address]- [place] Allergies, Adverse Reactions, Alerts Substance Reaction Severity Status amitriptyline 1 Mental status Active aspirin 2 facial edema and sob Severe Active Ziagen Active nevirapine Active Levaquin 3 Active 1dreaming, [...] events reported or observed. 2Result Comment: #2, [facility] 3Result Comment: [facility] 4Result Comment: pharmacy 5Location History: [facility] 6Admin Note: vis 08/31/11 7Admin Note: ADMIN.BY RN 8Result Comment: [facility] 9Admin Note: Admin. by RN 10Admin Note: Admin. by RN 11Admin Note: Admin. 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 USE... Start Date: 11/13/20 Status: Ordered albuterol 0.083% inhalation solution 3 mL = 2.5 mg, Inhalation, Every 6 hours, PRN Wheezing/Shortness of Breath, # 60 each, 0 Refills, Maintenance, 06/07/20 12:51:00 EDT, Solution, [facility] #[id number], 162.56, cm, 05/23/20 14:31:00 EDT, Height, 77, [...] 2 Refills, Maintenance, 08/30/22 11:09:00 EDT, Gel, [facility] #[id number], 1 applic... Start Date: 08/30/22 Status: Ordered Biktarvy oral tablet 1 tablet, By Mouth, Daily, # 30 tablet, 12 Refills, Maintenance, 04/17/22 7:54:00 EST, [facility] #[id number], 1 tablet By Mouth Daily, 162.56, cm, 04/16/22 16:00:00 EST, Height, 87.6, kg, 10/24/21 8:00:00 EDT, Dry Weight Start Date: 04/17/22 Status: Ordered Biktarvy oral tablet See Instructions, TAKE 1 TABLET BY MOUTH DAILY, # 90 tablet, 0 Refills, Maintenance, 07/15/22 13:50:00 EDT, [facility] #[id number], 90, TAKE 1 TABLET BY MOUTH DAILY, [...] 1 Refills, Maintenance, 07/10/21 18:35:00 EDT, Tablet, [facility] #22745, Partial fill upon patient request if the prescription is for a schedule II opioid drug., 162, cm, 06/19/21 15:40:00 EDT... Start Date: 07/10/21 Status: Ordered cloNIDine 0.1 mg oral tablet 1, tablet, By Mouth, 3 times a day, PRN, # 90 tablet, Refills 11, Tot. Refills 11, Maintenance, NEEDED FOR ANXIETY, 08/12/22 15:06:00 EDT, Route to Pharmacy Electronically, [facility] #[id number], 162.56, cm, 07/30/22 10:55:00 EDT, Height, 79.... Start Date: 08/12/22 Status: Ordered Colace Clear 50 mg oral capsule 1 capsule = 50 mg, By Mouth, 2 times a day, PRN as needed for constipation, # 60 capsule, 0 Refills, Maintenance, 12/05/21 15:09:00 EDT, [facility] #[id number], Partial fill upon patient requestif the prescription is for a schedule II opioid nhi... Start Date: 12/05/21 Status: Ordered diclofenac 1% topical gel = 2 Gm, Topically, 4 times a day, PRN for pain, not to exceed: 10 gm/day, # 100 Gm, 1 Refills, Maintenance, 05/29/21 16:52:00 EDT, Gel, [facility], Partial fill upon patient request if the prescription is for a schedule II opioid... Start Date: 05/29/21 Status: Ordered Dulera 200 mcg-5 mcg/inh inhalation aerosol 2 puffs, Inhalation, 2 times a day, # 1 each, 3 Refills, Maintenance, 01/28/21 16:44:00 EST, Aerosol, [facility], STOP FLOVENT, 2 puffs Inhalation 2 times a day,x30 days, 162, cm,01/28/21 16:02:00 EST, Height, 86.3, kg, 09/29/20 1... Start Date: 01/28/21 Stop Date: 05/28/21 Status: Ordered escitalopram 20 mg oral tablet 1 tablet = 20 mg, By Mouth, Daily, # 90 tablet, 0 Refills, Maintenance, 07/30/22 12:03:00 EDT, Tablet, [facility] #[id number], Partial fill upon patient request if the prescription is for a schedule II opioid drug., 162.56, cm, 07/30/22 10:55:00... Start Date: 07/30/22 Status: Ordered ferrous fumarate 324 mg oral tablet 1 tablet = 324 mg, By Mouth, Every other day, # 45 tablet, 0 Refills, Maintenance, 07/31/22 11:19:00 EDT, Tablet, [facility] #[id number], Partial fill upon patient request if the [...] Gm, 5 Refills, Maintenance, 07/19/19 15:19:00 EDT, [place], [facility] #[id number], 2 sprays Nares, Both Daily in AM,x30 [...] 08/30/22 13:09:00 EDT, Route to Pharmacy Electronically, [facility] #[id number], 162.56, cm, 08/20/22 13:54:00 EDT, Height, 79.54, [...] Instructions, # 1 each, Maintenance, covering for [facility] Blood pressure monitor neededto monitor blood [...] 2 Refills, Maintenance, 07/30/22 12:17:00 EDT, Syrup, [facility] #[id number], 30 mL By Mouth 4 times a day, 162.56, cm, 07/30/22 10:55:00 EDT,Height, 79.54, kg, 07/30/22 10:55:00 EDT, Dry Weight Start Date: 07/30/22 Status: Ordered losartan 100 mg oral tablet 1 tablet, By Mouth, Daily, # 30 tablet, 5 Refills, [facility] #[id number], 162, cm, 10/09/21 16:19:00 EDT, Height, 86.3, kg, 09/29/20 15:30:00 EDT, Dry Weight Start Date: 10/20/21 Status: Ordered meclizine 25 mg oral tablet 1 tablet = 25 mg, By Mouth, 2 times a day, # 30 tablet, 1 Refills, Maintenance, 07/10/21 17:25:00 EDT, Tablet, [facility] #[id number], 162, cm, 06/19/21 15:40:00 EDT, Height, 86.3, kg, 09/29/20 15:30:00 EDT, Dry Weight Start Date: 07/10/21 Status: Ordered multivitamin with iron Multiple Vitamins with Iron oral tablet 1 tablet, By Mouth, Daily, # 30 tablet, 11 Refills, Maintenance, 04/17/22 7:51:00 EST, Tablet, [facility] #[id number], 1 tablet By Mouth Daily, 162.56, cm, 04/16/22 16:00:00 EST, Height, 87.6, kg, 10/24/21 8:00:00 EDT, Dry Weight Start Date: 04/17/22 Status: Ordered Narcan 4 mg/0.1 mL nasal spray = 4 mg, Inhalation, Once, # 2 each, 1 Refills, Soft Stop, 10/29/20 12:23:00 EDT, [facility] #[id number], Partial fill upon patient request if the prescription is for a schedule II opioid drug., 162, cm, 09/29/20 15:30:00 EDT, Height, 86.3, kg, 08... Start Date: 10/29/20 Status: Ordered ondansetron 4 mg oral tablet 1 tablet = 4 mg, By Mouth, Daily, PRN Nausea & Vomiting, # 10 tablet, 3 Refills, Maintenance, 06/25/22 17:28:00 EDT, [facility] #[id number], 162.56, cm, 06/25/22 16:16:00 EDT, Height, 87.6, [...] 2 Refills, Maintenance, 08/21/22 17:50:00 EDT, Tablet, [facility] #[id number], this is correct dose. 200mg Rx just sent by mistake., 162.56, cm, 08/20/22 13:54:00 EDT, Height, 79.54, kg, 06... Start Date: 08/21/22 Status: Ordered Senna 8.6 mg oral tablet 1-3 tablet, By Mouth, Daily, for constipation, # 90 tablet, Refills 5, Tot. Refills 5, Maintenance,03/26/20 15:25:00 EST, Route to Pharmacy Electronically, [facility] #[id number] Tablet, 162.56, cm, 03/21/20 15:01:00 EST, Height, [...] tablet, 5 Refills, Maintenance, 04/17/22 7:53:00 EST, [facility] #[id number], 162.56, cm, 04/16/22 16:00:00 EST, Height, 87.6, kg, 10/24/21 8:00:00 EDT, Dry Weight Start Date: 04/17/22 Status: Ordered Suboxone 8 mg-2 mg Sublingual Film 2 film, Sublingual, Daily, [id number] Dino dissolve under the tongue may fill less due 08/27/2022,# 14 film, 0 Refills, Maintenance, 08/27/22 7:50:00 EDT, Film, [facility], 2 film Sublingual Daily,x7 days,Instr:[id number] Linc... Start Date: 08/27/22 Stop Date: 09/03/22 Status: Ordered SUMAtriptan 25 mg oral tablet 1 tablet = 25 mg, By Mouth, Daily, PRN as needed for migraine headache, may repeat dose after 2 hours up to a maximum of 2, # 6 tablet, 1 Refills, Maintenance, 03/02/20 19:47:00 EST, Tablet, [facility] #[id number], 162.56, cm, 01/04/20 9:40:00 ES... Start Date: 03/02/20 Status: Ordered zolpidem 5 mg oral tablet 0.5 tablet = 2.5 mg, By Mouth, Daily at bedtime, PRN as needed for sleep, Note decrease in dose., #14 tablet, 1 Refills, Maintenance, 09/10/22 17:51:00 EDT, [facility] #[id number], 09/10/22, 162.56, cm, 08/20/22 13:54:00 EDT, Height, [...] use disorder Confirmed Active Pancytopenia Confirmed Active *[id number] Plaster Maker April Saavedra Confirmed Active Portal hypertensive gastropathy [...] tolerance, and QD need over. 2genotype 02/02: [id number] is only mutation detected 3death of sister, caring for mother w/ dementia 4repeat screening colonoscopy in 2020 Social History Social History Type Response Smoking Status Former smoker, quit more than 30 days ago entered on: 12/05/21 Sex Patient Care team information Care Team Personnel Name: Kahlil Sun MD Position: [facility] Physician - Primary Care Member Role: PCP Address: Address: [address] [place] [address]- Name: Sharri Prince Position: [facility] PCO Associate Professional Member Role: [employer] Consulting Provider Care Team Related Persons Name: SHANITA MENDOZA Address: home [address] [place] [id number] Name: SHANITA MENDOZA Address: home [address] Name: ULICES PEARSON Name: ULICES ESPARZA Address: [place] [address] Name: LALA LI
--- OUTSIDE RECORDS SUMMARY | 2022-12-13 21:34 | XMS_ITS | Continuity of Care Document ---
Author Name Unknown Organization [facility] Address [address] [place] [address]- Care Team Providers Care Neuro Ophthalmologist Name Role Phone Dino PEREZ, Kahlil Barrera Primary Care Physician Encounter [facility] Date(s): 01/19/19 - 04/23/19 [facility] [address] [place] [address] Attending Physician: Cristy SNYDER, Cha Ozuna Admitting Physician: Cristy SNYDER, Cha Ozuna Referring Physician: Kahlil Sun MD Allergies, Adverse [...] #5 11Admin Note: #3 12Admin Note: LITO sanofi-steve 13Admin Note: ADMIN LILLIAN CONTRERAS 14Admin Note: [...] sublingual film 0.5 each, Sublingual, Daily, [facility] [id number] Covering for Dino [id number], # 4 film, 0 Refills, Maintenance, 03/30/19 17:44:00 EST, [facility] #[id number], 0.5 each Sublingual Daily,x7 days,Instr:[place] [id number] Covering for Dino [id number]... Start Date: 03/30/19 [...] 03/12/19 21:36:00 EST, Route to Pharmacy Electronically, [facility] #[id number], dose increase from 5mg,162.56, cm, 03/08/19 14:34:00 EST, Height, 72.3, kg... Start Date: 03/12/19 Status: Ordered loratadine 10 mg oral tablet 10 mg, 1, tablet, By Mouth, Daily, PRN, # 30 tablet, Refills 3, Tot. Refills 3, Maintenance, allergy/itch, 05/12/18 14:45:33 EDT, Route to Pharmacy Electronically, [id number], [facility] Start Date: 05/12/18 Status: [...] 1 Refills, Maintenance, 03/30/19 15:49:00 EST, Tablet, [facility] #[id number], 162.56, cm, 03/08/19 14:34:00 EST, Height, 72.3, [...] 12/05/15 14:17:14, Aerosol, Route to Pharmacy Electronically, [id number], [facility] [id number] Start Date: 12/05/15 Status: Ordered Senna 8.6 mg oral tablet 1-3 tablet, By Mouth, Daily, for constipation, # 90 tablet, Refills 5, Tot. Refills 5, Maintenance,02/17/18 15:12:45 EST, Route to Pharmacy Electronically, [id number], [facility] Tablet Start Date: 02/17/18 Status: Ordered SUMAtriptan 25 mg oral tablet 1 tablet = 25 mg, By Mouth, Daily, PRN as needed for migraine headache, may repeat dose after 2 hours up to a maximum of 2, # 6 tablet, 1 Refills, Maintenance, 04/18/19 13:31:00 EST, Tablet, [facility] #[id number], 162.56, cm, 03/08/19 14:34:00 E... Start Date: [...] 2016 Active Migraine(Confirmed) Active Opioid dependence(Confirmed) Active *[id number]-[facility] Partn er April Saavedra(Confirmed) Active Health care [...] tolerance, and QD need over. 2genotype 02/02: [id number] is only mutation detected 3death of sister, caring for mother w/ dementia 4repeat screening colonoscopy in 2020 Social History Social History Type Response Smoking Status Former smoker, quit more than 30 days ago entered on: 05/24/18 Sex
--- OUTSIDE RECORDS SUMMARY | 2022-12-13 21:35 | XMS_ITS | Continuity of Care Document ---
Author Name Unknown Organization [facility] Address [address] [place] [address]- Care Team Providers Care Web Operations Administrator Name Role Phone Kahlil Sun MD Primary Care Physician [phone] Encounter [facility] R [id number] Date(s): 01/30/22 - 03/01/22 [facility] [address]- Attending Physician: Ankit Keller Admitting Physician: AdmtrAnkit Referring Physician: Admtr, Ar8 [...] Comment: #2, [facility] 3Result Comment: [facility] 4Result Comment: pharmacy 5Location History: [facility] 6Admin Note: vis 08/31/11 7Admin Note: ADMIN.BY RN 8Result Comment: [facility] 9Admin Note: Admin. by RN 10Admin Note: Admin. by RN 11Admin Note: Admin. 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 Start Date: 12/05/21 Status: Ordered acyclovir 400 mg oral tablet 1 tablet = 400 mg, By Mouth, 2 times a day, # 10 tablet, 5 Refills, Maintenance, 01/08/21 18:41:00 EST, [facility] #[id number], 162, cm, 12/17/20 23:19:00 EDT, Height, 86.3, kg, 09/29/20 15:30:00 EDT, Dry Weight Start Date: 01/08/21 Stop Date: 02/07/21 Status: Ordered Albuterol (Eqv-ProAir HFA) 90 mcg/inh inhalation aerosol 2 puffs, Inhalation, Every 4 hours, PRN NEEDED FOR WHEEZING/SHORTNESS OF BREATH, USE WITH SPACERCHAMBER, # 8.5 Gm, 5 Refills, [facility] #[id number], 16, INHALE 2 PUFFS INTO LUNGS EVERY 4 HOURS NEEDED FOR WHEEZING/SHORTNESS OF BREATH. USE... Start Date: 11/13/20 Status: Ordered albuterol 0.083% inhalation solution 3 mL = 2.5 mg, Inhalation, Every 6 hours, PRN Wheezing/Shortness of Breath, # 60 each, 0 Refills, Maintenance, 06/07/20 12:51:00 EDT, Solution, [facility] #[id number], 162.56, cm, 05/23/20 14:31:00 EDT, Height, 77, [...] 01/04/22 19:11:00 EST, Route to Pharmacy Electronically, [facility] #[id number], 162.56, cm, 11/0... Start Date: 01/04/22 Status: Ordered Biktarvy oral tablet 1 tablet, By Mouth, Daily, # 90 tablet, 3 Refills, Maintenance, 06/13/21 22:19:00 EDT, [facility] #40695, 1 tablet By Mouth Daily, 162, cm, [...] 1 Refills, Maintenance, 07/10/21 18:35:00 EDT, Tablet, [facility] #14216, Partial fill upon patient request if the prescription is for a schedule II opioid drug., 162, cm, 06/19/21 15:40:00 EDT... Start Date: 07/10/21 Status: Ordered cloNIDine 0.1 mg oral tablet 1, tablet, By Mouth, 3 times a day, PRN, # 270 tablet, Refills 0, Maintenance, NEEDED FOR ANXIETY, 01/01/22 10:42:00 EDT, Route to Pharmacy Electronically, [facility] #[id number], 162.56, cm,12/05/21 14:12:00 EDT, Height, 87.6, kg, 10/24/21 8... Start Date: 01/01/22 Status: Ordered Colace Clear 50 mg oral capsule 1 capsule = 50 mg, By Mouth, 2 times a day, PRN as needed for constipation, # 60 capsule, 0 Refills, Maintenance, 12/05/21 15:09:00 EDT, [facility] #77801, Partial fill upon patient requestif the prescription is for a schedule II opioid nhi... Start Date: 12/05/21 Status: Ordered diclofenac 1% topical gel = 2 Gm, Topically, 4 times a day, PRN for pain, not to exceed: 10 gm/day, # 100 Gm, 1 Refills, Maintenance, 05/29/21 16:52:00 EDT, Gel, [facility], Partial fill upon patient request if the prescription is for a schedule II opioid... Start Date: 05/29/21 Status: Ordered Dulera 200 mcg-5 mcg/inh inhalation aerosol 2 puffs, Inhalation, 2 times a day, # 1 each, 3 Refills, Maintenance, 01/28/21 16:44:00 EST, Aerosol, [facility], STOP FLOVENT, 2 puffs Inhalation 2 times a day,x30 days, 162, cm,01/28/21 16:02:00 EST, Height, 86.3, kg, 09/29/20 1... Start Date: 01/28/21 Stop Date: 05/28/21 Status: Ordered escitalopram 10 mg oral tablet 1 tablet = 10 mg, By Mouth, Daily, # 30 tablet, 11 Refills, Maintenance, 07/31/21 17:50:00 EDT, Tablet, [facility] #[id number], Partial fill upon patient request if the [...] Gm, 5 Refills, Maintenance, 07/19/19 15:19:00 EDT, [place], [facility] #32124, 2 sprays Nares, Both Daily [...] Replace Required Details, Route to Pharmacy Electronically, [facility] #[id number], 162.56, cm,... Start Date: 11/27/21 Status: Ordered [...] 1 each, Maintenance, covering for [facility] Blood pressure monitor neededto monitor blood pressure DX: hypertension, 07/11/18 17:28:42 EDT, Compound Start Date: 07/11/18 Status: Ordered humidifier humidifier, See Instructions, # 1 each, Refills 0, Tot. Refills 0, Maintenance, use as directed forchronic sinusitis J32, 04/09/17 14:21:37 EST, Compound Start Date: 04/09/17 Status: Ordered losartan 100 mg oral tablet 1 tablet, By Mouth, Daily, # 30 tablet, 5 Refills, [facility] #[id number], 162, cm, 10/09/21 16:19:00 EDT, Height, 86.3, kg, 09/29/20 15:30:00 EDT, Dry Weight Start Date: 10/20/21 Status: Ordered meclizine 25 mg oral tablet 1 tablet = 25 mg, By Mouth, 2 times a day, # 30 tablet, 1 Refills, Maintenance, 07/10/21 17:25:00 EDT, Tablet, [facility] #32318, 162, cm, 06/19/21 15:40:00 EDT, Height, 86.3, kg, 09/29/20 15:30:00 EDT, Dry Weight Start Date: 07/10/21 Status: Ordered multivitamin with iron Multiple Vitamins with Iron oral tablet 1 tablet, By Mouth, Daily, # 30 tablet, 11 Refills, Maintenance, 09/06/21 19:08:00 EDT, Tablet, [facility] #12663, 1 tablet By Mouth Daily, 162, cm, 07/31/21 16:00:00 EDT, Height, 86.3, kg,09/29/20 15:30:00 EDT, Dry Weight Start Date: 09/06/21 Status: Ordered Narcan 4 mg/0.1 mL nasal spray = 4 mg, Inhalation, Once, # 2 each, 1 Refills, Soft Stop, 10/29/20 12:23:00 EDT, [facility] #[id number], Partial fill upon patient request if the prescription is for a schedule II opioid drug., 162, cm, 09/29/20 15:30:00 EDT, Height, 86.3, kg, 08... Start Date: 10/29/20 Status: Ordered ondansetron 4 mg oral tablet 1 tablet = 4 mg, By Mouth, Daily, PRN Nausea & Vomiting, # 10 tablet, 3 Refills, Maintenance, 10/08/21 22:17:00 EDT, [facility] #01301, 162, cm, 10/09/21 16:19:00 EDT, Height, 86.3, [...] each, 0 Refills, Maintenance, 06/04/20 16:46:00 EDT, [facility] #99534, OK to sub for any gallon prep, used as directed, 162.56, cm, 05/23/20 14:31:00 EDT, Height, 77, kg, 03/21/20 15:04:00 EST, Dry We... Start Date: 06/04/20 Status: Ordered Senna 8.6 mg oral tablet 1-3 tablet, By Mouth, Daily, for constipation, # 90 tablet, Refills 5, Tot. Refills 5, Maintenance,03/26/20 15:25:00 EST, Route to Pharmacy Electronically, [facility] #14197 Tablet, 162.56, cm, 03/21/20 15:01:00 EST, Height, [...] tablet, 2 Refills, Maintenance, 12/23/21 16:29:00 EDT, [facility] #94915, 162.56, cm, 12/05/21 14:12:00 EDT, Height, 87.6, kg, 10/24/21 8:00:00 EDT, Dry Weight Start Date: 12/23/21 Status: Ordered Suboxone 8 mg-2 mg Sublingual Film 2.5 film, Sublingual, Daily, dissolve under the tongue may fill less due 01/30/2022 Marva [id number] covering for Dr Sun [id number], # 70 film, 0 Refills, Maintenance, 01/30/22 11:01:00 EST, Film, [facility], 2.5 film Subling... Start Date: 01/30/22 Stop Date: 02/27/22 Status: Ordered Suboxone 8 mg-2 mg Sublingual Film 2.5 film, Sublingual, Daily, dissolve under the tongue increase in dose Iveth [id number] coveringfor Dino due on/after 08/22/2021, # 35 film, 0 Refills, Maintenance, 08/22/21 9:27:00 EDT, Film,[facility], 2.5 film Subli... Start Date: 08/22/21 Stop Date: 09/05/21 Status: Ordered SUMAtriptan 25 mg oral tablet 1 tablet = 25 mg, By Mouth, Daily, PRN as needed for migraine headache, may repeat dose after 2 hours up to a maximum of 2, # 6 tablet, 1 Refills, Maintenance, 03/02/20 19:47:00 EST, Tablet, [facility] #70015, 162.56, cm, 01/04/20 9:40:00 ES... Start Date: 03/02/20 Status: Ordered zolpidem 5 mg oral tablet 1 tablet = 5 mg, By Mouth, Daily at bedtime, PRN as needed for sleep, # 30 tablet, 1 Refills, Maintenance, 02/23/22 22:36:00 EST, [facility] #47312, 162.56, cm, 01/02/22 12:19:00 EDT, Height, 87.6, [...] disorder Confirmed Active Opioid dependence Confirmed Active *[phone] Nurse Ob April Saavedra Confirmed Active Health care maintenance [...] tolerance, and QD need over. 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 , Sharri: PERFORM, SIGN, VERIFY Event Display: Patient Education/Instruction Authored Date: [id number] [facility] Clinical Summary Person Information Name ELADIO GARCIA Age 38 Years 1975 12:00 AM PCP Kahlil Sun MD PCP Reason for Visit: Allergy Info: Ziagen; nevirapine; aspirin; amitriptyline Vital Signs Height Weight BMI Blood Pressure / Temperature Pulse Rate Respiratory Rate 02 Sat Mode of Delivery / Medication Information Acyclovir (acyclovir 400 mg oral tablet) 1 tablet, Oral, twice a day, 5 days, Refills: 5 Albuterol (albuterol 0.083% inhalation solution) 3 mL, Inhalation, every 6 hours, As Needed, Wheezing/Shortness of Breath, Refills: 3 Albuterol (albuterol CFC free 90 mcg/inh inhalation aerosol) 2 puffs, Inhalation, 4 times a day, AsNeeded, Wheezing/Shortness of Breath, Refills: 3 Beclomethasone (Qvar 40 mcg/inh inhalation aerosol with adapter) 2 puffs, Inhalation, twice a day, Refills: 2 Buprenorphine-Naloxone (buprenorphine-naloxone 2 mg-0.5 mg sublingual tablet, disintegrating) 1 tablet, Sublingual, Daily, [id number]. [facility]. To be filled on or after 02/18/13. (handwritten done), Refills: 0 Dicyclomine (dicyclomine 10 mg oral capsule) 1 capsule, Oral, 4 times a day, As Needed, abdominal cramps, Refills: 1 Docusate (docusate sodium 100 mg oral capsule) 2 capsule, Oral, twice a day, As Needed, for constipation, Refills: 0 Durable Medical Equipment (Compression Stockings) , See Instructions, surgical, calf length 20-30 mm Hg dx: edema Durable Medical Equipment (right hand wrist splint) , See Instructions, DX: Carpel Tunnel, Refills:0 Durable Medical Equipment (Splint) , See Instructions, wrist cock-up splints, bilateral, Refills: 0 Emtricitabine-Tenofovir (Truvada 200 mg-300 mg oral tablet) 1 tablet, Oral, Daily, Refills: 11 Gabapentin (gabapentin 100 mg oral capsule) , 1-2 capsule, Oral, 3 times a day, Refills: 3 Ibuprofen (ibuprofen 600 mg oral tablet) 1 tablet, Oral, every 8 hours, As Needed, Migraine Headache, Refills: 2 Loratadine (loratadine 10 mg oral tablet) 1 tablet, Oral, Daily, Refills: 3 Meclizine (meclizine 25 mg oral tablet) 1 tablet, Oral, twice a day, Refills: 1 Miscellaneous Rx (dolutegravir/ Tivicay 50 mg one tabelt daily) , See Instructions, one tablet eachday, Refills: 5 Ondansetron (ondansetron 4 mg oral tablet) 0.5 tablet, Oral, twice a day, As Needed, Nausea & Vomiting, Refills: 3 Polyethylene Glycol 3350 (MiraLax oral powder for reconstitution) 17 Gm, Oral, Daily, Refills: 5 Ranitidine (ranitidine 300 mg oral capsule) 1 capsule, Oral, Daily at Bedtime, for heartburn., Refills: 2 Spironolactone (spironolactone 25 mg oral tablet) 1 tablet, Oral, Daily at Bedtime, for fluid., Refills: 2 Sumatriptan (sumatriptan 25 mg oral tablet) 1 tablet, Oral, Daily, may repeat dose after 2 hours upto a maximum of 2, As Needed, as needed for migraine headache, Refills: 1 Problem List Date Problem 11/30/11 Portal hypertensive gastropathy 08/14/10 Secondary oligomenorrhea 04/10/11 Vitamin D deficiency 03/15/09 Excision of condyloma acuminatum 07/28/06 AIDS - Acquired immunodeficiency syndrome 02/21/13 Chronic hepatitis C 07/28/06 Opioid dependence 07/28/06 Genital herpes simplex 07/28/06 Asthma 11/10/06 Psychological stress 12/16/07 Migraine 06/02/11 TMJ - click 08/07/12 Vertigo 10/04/12 Cervicovaginal cytology: Low grade squamous intraepithelial lesion If the following labs have been performed in the last year, the most recent result is displayed below. Diagnostic Results Lab Result Value Date Lead Hemoglobin A1C LDL HDL Triglycerides Total Cholesterol Disclaimer: The information provided is of a general nature and is intended to be used in conjunction with the recommendations and advice of your health care practitioner. Every effort has been made to ensure that the information provided is accurate and complete at the time it is provided to you however, as your needs change, or, as new information becomes available, different or additional instructions may be required. If you have questions, please consult with your primary care provider or pharmacist, as appropriate. This information is not intended to serve as substitution for assessment and evaluation by a qualified health care provider. If you do not have a primary care provider, you may find a [facility] provider by calling [facility] at [phone]. Patient Education Information Follow-up Details: Patient Education Material: Please follow instructions discussed with your provider during this visit as well as any education documents you were given today. * Zuri Rivas: PERFORM Event Display: Radiology Results Scanned Authored Date: [id number] * Yas Nagel.: PERFORM Event Display: Radiology Results Scanned Authored Date: [id number] * Yas Nagel.: PERFORM Event Display: Radiology Results Scanned Authored Date: [id number] * Yas Nagel: PERFORM Event Display: Laboratory Results Scanned Authored Date: [id number] * Yas Nagel.: PERFORM Event Display: Laboratory Results Scanned Authored Date: [id number] Patient Care team information Care Team Personnel Name: Kahlil Sun MD Position: [facility] Primary Care Physician Member Role: PCP Address: Address: [address] [place] [address] Name: Sharri Prince Position: [facility] PCO Associate Professional Member Role: Lifetime Consulting Provider Care Team Related Persons Name: SHANITA MENDOZA Address: home [address] [place] [id number] Name: SHANITA MENDOZA BRITTNY Address: home [address] Name: ULICES PEARSON Name: ULICES ESPARZA Address: [place] [address] Name: LALA LI
--- OUTSIDE RECORDS SUMMARY | 2022-12-13 21:35 | XMS_ITS | Continuity of Care Document ---
Author Name Unknown Organization [facility] Address [address] [place] [id number]- Care Team Providers Care Transitional Care Liaison Name Role Phone Kahlil Sun MD Primary Care Physician Encounter [facility] Date(s): 06/19/20 - 06/19/[address] [address]- Discharge Disposition: A-D/C Home Attending Physician: Rian Kenny MD Admitting Physician: Rian Kenny MD Referring Physician: Rian Kenny MD Allergies, Adverse Reactions, Alerts Substance Reaction [...] toxoids (Td) 03/10/01 Given 1Result Comment: #2, [facility] 2Result Comment: [facility] 3Result Comment: [facility] 4Result Comment: pharmacy 5Location History: [facility] 6Admin Note: vis 08/31/11 7Admin Note: ADMIN.BY RN 8Admin Note: Admin. by RN 9Admin Note: Admin. by RN 10Admin Note: Admin. 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 17Admin Note: BY LEXI Agudelo 18Admin Note: [...] tablet, 5 Refills, Maintenance, 01/26/20 16:20:00 EST, [facility], 162.56, cm, 10/09/19 10:36:00 EDT, Height, 72.3, kg, 09/26/18 16:01:00 EDT, Dry Weight Start Date: 01/26/20 Stop Date: 02/25/20 Status: Ordered albuterol 0.083% inhalation solution 3 mL = 2.5 mg, Inhalation, Every 6 hours, PRN Wheezing/Shortness of Breath, # 60 each, 0 Refills, Maintenance, 06/07/20 12:51:00 EDT, Solution, [facility] #[id number], 162.56, cm, 05/23/20 14:31:00 EDT, Height, 77, [...] tablet, 3 Refills, Maintenance, 03/02/20 19:50:00 EST, [facility] #76441, 1 tablet By Mouth Daily, 162.56, cm, 01/04/20 9:40:00 EST, Height, 72.3, kg, 09/26/18 16:01:00 EDT, Dry Weight Start Date: 03/02/20 Status: Ordered Blood Pressure Meter Blood Pressure Meter, See Instructions, # 1 each, Refills 0, Tot. Refills 0, Maintenance, Use for, 07/11/18 16:11:47 EDT, Compound Start Date: 07/11/18 Status: Ordered buprenorphine-naloxone 2 mg-0.5 mg sublingual film 1 film, Sublingual, Daily, Emery [id number], # 14 film, 0 Refills, Maintenance, 06/17/20 16:56:00 EDT, [facility] #32375, Partial fill on request., 1 film Sublingual Daily,Instr:Dino [id number], 163, cm, 06/08/20 17:25:00 EDT, Height, 82.... Start Date: 06/17/20 Status: Ordered buprenorphine-naloxone 2 mg-0.5 mg sublingual film 0.25 each, Sublingual, Daily, Emery [id number], # 8 film, 0 Refills, Maintenance, 12/15/19 19:00:00 EDT, [facility] #73105, Partial fill on request., 0.25 each Sublingual Daily,Instr:Emery [id number], 162.56, cm, 10/09/19 10:36:00 EDT, Hei... Start Date: 12/15/19 Status: Ordered cetirizine 10 mg oral tablet 1 tablet = 10 mg, By Mouth, Daily, For allergies., # 30 tablet, 2 Refills, Maintenance, 06/29/19 16:02:00 EDT, Tablet, [facility] #07390, 162.56, cm, 05/03/19 16:30:00 EST, Height, 72.3, kg, 09/26/18 16:01:00 EDT, Dry Weight Start Date: 06/29/19 Status: Ordered cloNIDine 0.1 mg oral tablet 0.1 mg, 1, tablet, By Mouth, 3 times a day, as needed for anxiety, # 25 tablet, Refills 0, Tot. Refills 0, Maintenance, 10/10/19 21:36:00 EDT, Route to Pharmacy Electronically, [facility] #71510, 162.56, cm, 10/09/19 10:36:00 EDT, Height, 72... [...] Gm, 5 Refills, Maintenance, 07/19/19 15:19:00 EDT, [place], [facility] #83658, 2 sprays Nares, Both Daily in AM,x30 days, 162.56, cm, 05/03/19 16:30:00 EST, Height, 72.3, kg, 09/26/18 16:01:00 EDT, Dry... Start Date: 07/19/19 Stop Date: 01/15/20 Status: Ordered Flovent HFA 44 mcg/inh inhalation aerosol 1 puffs, Inhalation, 2 times a day, # 1 each, 5 Refills, Maintenance, 06/07/20 12:52:00 EDT, Aerosol, [facility] #88698, 162.56, cm, 05/23/20 14:31:00 EDT, Height, 77, [...] 1 each, Maintenance, covering for [facility] Blood pressure monitor neededto monitor blood [...] 3 Refills, Maintenance, 03/02/20 19:48:00 EST, Tablet, [facility] #44553, 30 day supply preferred for present, 162.56, [...] 05/12/18 14:45:33 EDT, Route to Pharmacy Electronically, [id number], [facility] Start Date: 05/12/18 Status: Ordered LORazepam 0.5 mg oral tablet 0.5 tablet = 0.25 mg, By Mouth, 2 times a day, PRN as needed for anxiety, # 20 tablet, 1 Refills, Maintenance, 05/16/19 23:11:00 EDT, Tablet, [facility] #32359, 162.56, cm, 05/03/19 16:30:00 EST, Height, 72.3, kg, 09/26/18 16:01:00 EDT, Dry... Start Date: 05/16/19 Status: Ordered losartan 100 mg oral tablet 1 tablet = 100 mg, By Mouth, Daily, # 30 tablet, 11 Refills, Maintenance, 06/29/19 15:59:00 EDT, Tablet, [facility] #68927, 162.56, cm, 05/03/19 16:30:00 EST, Height, 72.3, kg, 09/26/18 16:01:00 EDT, Dry Weight Start Date: 06/29/19 Status: Ordered meclizine 25 mg oral tablet 1 tablet = 25 mg, By Mouth, 2 times a day, # 30 tablet, 1 Refills, Maintenance, 03/30/19 15:49:00 EST, Tablet, [facility] #42654, 162.56, cm, 03/08/19 14:34:00 EST, Height, 72.3, [...] each, 0 Refills, Maintenance, 06/04/20 16:46:00 EDT, [facility] #97482, OK to sub for any gallon prep, [...] 12:51:00 EDT, Aerosol, Route to Pharmacy Electronically, [id number], [facility] #51219, 1... Start Date: 06/07/20 Status: Ordered Senna 8.6 mg oral tablet 1-3 tablet, By Mouth, Daily, for constipation, # 90 tablet, Refills 5, Tot. Refills 5, Maintenance,03/26/20 15:25:00 EST, Route to Pharmacy Electronically, [facility] #[id number] Tablet, 162.56, cm, 03/21/20 15:01:00 EST, Height, 77, kg, ... Start Date: 03/26/20 Status: Ordered Spacer for inhalers Spacer for inhalers, See Instructions, # 1 each, Refills 0, Tot. Refills 0, Maintenance, Use with inhalers as directed. Occitan., 06/07/19 15:07:00 EDT, Compound, 162.56, cm, 05/03/19 16:30:00 EST, Height, 72.3, kg, 09/26/18 16:01:00 EDT, Dry Weight Start Date: 06/07/19 Status: Ordered SUMAtriptan 25 mg oral tablet 1 tablet = 25 mg, By Mouth, Daily, PRN as needed for migraine headache, may repeat dose after 2 hours up to a maximum of 2, # 6 tablet, 1 Refills, Maintenance, 03/02/20 19:47:00 EST, Tablet, [facility] #79473, 162.56, cm, 01/04/20 9:40:00 ES... Start Date: 03/02/20 Status: Ordered Zofran 4 mg oral tablet 1 tablet = 4 mg, By Mouth, 2 times a day, PRN Nausea & Vomiting, # 10 tablet, 0 Refills, Maintenance, 05/04/20 17:09:00 EST, Tablet, [facility] #76651, 162.56, cm, 05/03/20 9:23:00 EST,Height, 77, kg, [...] 2016 Active Migraine(Confirmed) Active Opioid dependence(Confirmed) Active *[id number] Care Partn er April Saavedra(Confirmed) Active Health [...] tolerance, and QD need over. 2genotype 02/02: [id number] is only mutation detected 3death of sister, caring for mother w/ dementia 4repeat screening colonoscopy in 2020 Procedures Procedure Date Related Diagnosis Body Site Status Colonoscopy 06/19/20 Completed Vital Signs Most recent to oldest [Reference Range]: 1 2 3 Height 162 cm (06/19/20 8:04 AM) Weight 81 kg (06/19/20 8:04 AM) Oxygen Saturation [94-100 %] 100 % (06/19/20 10:31 AM) 99 % (06/19/20 10:22 AM) 100 % (06/19/20 8:04 AM) Pulse Rate [55-90 bpm] 70 bpm (06/19/20 10:22 AM) 64 bpm (06/19/20 8:04 AM) Body Mass Index [18.5-24.99] 30.86 *>HHI* (06/19/20 8:04 AM) Blood Pressure [90-138/55-84 mm Hg] 108/63mm Hg (06/19/20 10:31 AM) 91/50mm Hg (06/19/20 10:22 AM) 115/78mm Hg (06/19/20 8:04 AM) Respiratory Rate [16-30 br/min] 17 br/min (06/19/20 10:31 AM) 17 br/min (06/19/20 10:22 AM) 17 br/min (06/19/20 8:04 AM) Temperature [96.8-100.4 DegF] 98.6 DegF (06/19/20 8:04 AM) Mode of Delivery (Oxygen) Room air (06/19/20 10:31 AM) Room air (06/19/20 10:22 AM) Room air (06/19/20 8:04 AM) Blood pressure sites Arm, right (06/19/20 10:31 AM) Arm, right (06/19/20 10:22 AM) Arm, right (06/19/20 8:04 AM) Temperature Route Temporal (06/19/20 8:04 AM) Social History Social History Type Response Smoking Status Former smoker, quit more than 30 days ago entered on: 05/24/18 Sex
--- OUTSIDE RECORDS SUMMARY | 2022-12-13 21:35 | XMS_ITS | Continuity of Care Document ---
Author Name Unknown Organization [facility] Address [address] [place] [address]- Care Team Providers Care Chocolate Maker Name Role Phone Kahlil Sun MD Primary Care Physician [place] [facility] [place] 05/16/22 [facility] [address] [place] [address]- Attending Physician: Admtr, Ar8 Admitting Physician: Admtr, [...] reported or observed. 2Result Comment: #2, [facility] 3Result Comment: [facility] 4Result Comment: pharmacy 5Location History: [facility] 6Admin Note: vis 08/31/11 7Admin Note: ADMIN.BY RN 8Result Comment: [facility] 9Admin Note: Admin. by RN 10Admin Note: Admin. by RN 11Admin Note: Admin. 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 Start Date: 12/05/21 Status: Ordered acyclovir 400 mg oral tablet 1 tablet = 400 mg, By Mouth, 2 times a day, # 10 tablet, 5 Refills, Maintenance, 01/08/21 18:41:00 EST, [facility] #[id number], 162, cm, 12/17/20 23:19:00 EDT, Height, 86.3, kg, 09/29/20 15:30:00 EDT, Dry Weight Start Date: 01/08/21 Stop Date: 02/07/21 Status: Ordered Albuterol (Eqv-ProAir HFA) 90 mcg/inh inhalation aerosol 2 puffs, Inhalation, Every 4 hours, PRN NEEDED FOR WHEEZING/SHORTNESS OF BREATH, USE WITH SPACERCHAMBER, # 8.5 Gm, 5 Refills, [facility] #[id number], 16, INHALE 2 PUFFS INTO LUNGS EVERY 4 HOURS NEEDED FOR WHEEZING/SHORTNESS OF BREATH. USE... Start Date: 11/13/20 Status: Ordered albuterol 0.083% inhalation solution 3 mL = 2.5 mg, Inhalation, Every 6 hours, PRN Wheezing/Shortness of Breath, # 60 each, 0 Refills, Maintenance, 06/07/20 12:51:00 EDT, Solution, [facility] #[id number], 162.56, cm, 05/23/20 14:31:00 EDT, Height, 77, [...] 01/04/22 19:11:00 EST, Route to Pharmacy Electronically, [facility] #[id number], 162.56, cm, 11/0... Start Date: 01/04/22 Status: Ordered Biktarvy oral tablet 1 tablet, By Mouth, Daily, # 30 tablet, 12 Refills, Maintenance, 04/17/22 7:54:00 EST, [facility] #[id number], 1 tablet By Mouth Daily, 162.56, cm, [...] 1 Refills, Maintenance, 07/10/21 18:35:00 EDT, Tablet, [facility] #[id number], Partial fill upon patient request if the prescription is for a schedule II opioid drug., 162, cm, 06/19/21 15:40:00 EDT... Start Date: 07/10/21 Status: Ordered cloNIDine 0.1 mg oral tablet 1, tablet, By Mouth, 3 times a day, PRN, # 270 tablet, Refills 0, Tot. Refills 0, Maintenance, NEEDED FOR ANXIETY, 05/13/22 16:45:00 EDT, Route to Pharmacy Electronically, [facility] #[id number], 162.56, cm, 05/07/22 12:32:00 EST, Height, 87.6... Start Date: 05/13/22 Status: Ordered Colace Clear 50 mg oral capsule 1 capsule = 50 mg, By Mouth, 2 times a day, PRN as needed for constipation, # 60 capsule, 0 Refills, Maintenance, 12/05/21 15:09:00 EDT, [facility] #[id number], Partial fill upon patient requestif the prescription is for a schedule II opioid nhi... Start Date: 12/05/21 Status: Ordered diclofenac 1% topical gel = 2 Gm, Topically, 4 times a day, PRN for pain, not to exceed: 10 gm/day, # 100 Gm, 1 Refills, Maintenance, 05/29/21 16:52:00 EDT, Gel, [facility], Partial fill upon patient request if the prescription is for a schedule II opioid... Start Date: 05/29/21 Status: Ordered Dulera 200 mcg-5 mcg/inh inhalation aerosol 2 puffs, Inhalation, 2 times a day, # 1 each, 3 Refills, Maintenance, 01/28/21 16:44:00 EST, Aerosol, [facility], STOP FLOVENT, 2 puffs Inhalation 2 times a day,x30 days, 162, cm,01/28/21 16:02:00 EST, Height, 86.3, kg, 09/29/20 1... Start Date: 01/28/21 Stop Date: 05/28/21 Status: Ordered escitalopram 10 mg oral tablet 1 tablet = 10 mg, By Mouth, Daily, # 30 tablet, 11 Refills, Maintenance, 04/16/22 16:59:00 EST, Tablet, [facility] #[id number], Partial fill upon patient request if the [...] Gm, 5 Refills, Maintenance, 07/19/19 15:19:00 EDT, [place], [facility] #[id number], 2 sprays Nares, Both Daily in AM,x30 [...] Replace Required Details, Route to Pharmacy Electronically, [facility] #[id number], 162.56, cm,... Start Date: 11/27/21 Status: Ordered [...] Replace Required Details, Route to Pharmacy Electronically, [facility] .. Start Date: 04/16/22 Status: Ordered Glucose Monitor [...] # 1 each, Maintenance, covering for Sharri Laronoggia Blood pressure monitor neededto monitor blood pressure DX: hypertension, 07/11/18 17:28:42 EDT, Compound Start Date: 07/11/18 Status: Ordered humidifier humidifier, See Instructions, # 1 each, Refills 0, Tot. Refills 0, Maintenance, use as directed forchronic sinusitis J32, 04/09/17 14:21:37 EST, Compound Start Date: 04/09/17 Status: Ordered losartan 100 mg oral tablet 1 tablet, By Mouth, Daily, # 30 tablet, 5 Refills, [facility] #[id number], 162, cm, 10/09/21 16:19:00 EDT, Height, 86.3, kg, 09/29/20 15:30:00 EDT, Dry Weight Start Date: 10/20/21 Status: Ordered meclizine 25 mg oral tablet 1 tablet = 25 mg, By Mouth, 2 times a day, # 30 tablet, 1 Refills, Maintenance, 07/10/21 17:25:00 EDT, Tablet, [facility] #[id number], 162, cm, 06/19/21 15:40:00 EDT, Height, 86.3, kg, 09/29/20 15:30:00 EDT, Dry Weight Start Date: 07/10/21 Status: Ordered multivitamin with iron Multiple Vitamins with Iron oral tablet 1 tablet, By Mouth, Daily, # 30 tablet, 11 Refills, Maintenance, 04/17/22 7:51:00 EST, Tablet, [facility] #[id number], 1 tablet By Mouth Daily, 162.56, cm, 04/16/22 16:00:00 EST, Height, 87.6, kg, 10/24/21 8:00:00 EDT, Dry Weight Start Date: 04/17/22 Status: Ordered Narcan 4 mg/0.1 mL nasal spray = 4 mg, Inhalation, Once, # 2 each, 1 Refills, Soft Stop, 10/29/20 12:23:00 EDT, [facility] #[id number], Partial fill upon patient request if the prescription is for a schedule II opioid drug., 162, cm, 09/29/20 15:30:00 EDT, Height, 86.3, kg, 08... Start Date: 10/29/20 Status: Ordered ondansetron 4 mg oral tablet 1 tablet = 4 mg, By Mouth, Daily, PRN Nausea & Vomiting, # 10 tablet, 3 Refills, Maintenance, 04/16/22 17:07:00 EST, [facility] #[id number], 162.56, cm, 04/16/22 16:00:00 EST, Height, 87.6, [...] each, 0 Refills, Maintenance, 06/04/20 16:46:00 EDT, [facility] #[id number], OK to sub for any gallon prep, used as directed, 162.56, cm, 05/23/20 14:31:00 EDT, Height, 77, kg, 03/21/20 15:04:00 EST, Dry We... Start Date: 06/04/20 Status: Ordered Senna 8.6 mg oral tablet 1-3 tablet, By Mouth, Daily, for constipation, # 90 tablet, Refills 5, Tot. Refills 5, Maintenance,03/26/20 15:25:00 EST, Route to Pharmacy Electronically, [facility] #[id number] Tablet, 162.56, cm, 03/21/20 15:01:00 EST, Height, [...] tablet, 5 Refills, Maintenance, 04/17/22 7:53:00 EST, [facility] #[id number], 162.56, cm, 04/16/22 16:00:00 EST, Height, 87.6, kg, 10/24/21 8:00:00 EDT, Dry Weight Start Date: 04/17/22 Status: Ordered Suboxone 8 mg-2 mg Sublingual Film 2 film, Sublingual, Daily, dissolve under the tongue may fill less due 05/12/2022, # 14 film, 0 Refills, Maintenance, 05/12/22 2:02:00 EDT, Film, [facility], 2 film Sublingual Daily,x7 days,Instr:dissolve under the tongue; june fi... Start Date: 05/12/22 Stop Date: 05/19/22 Status: Ordered Suboxone 8 mg-2 mg Sublingual Film 2.5 film, Sublingual, Daily, dissolve under the tongue increase in dose Iveth [id number] coveringfor Dino due on/after 08/22/2021, # 35 film, 0 Refills, Maintenance, 08/22/21 9:27:00 EDT, Film,[facility], 2.5 film Subli... Start Date: 08/22/21 Stop Date: 09/05/21 Status: Ordered SUMAtriptan 25 mg oral tablet 1 tablet = 25 mg, By Mouth, Daily, PRN as needed for migraine headache, may repeat dose after 2 hours up to a maximum of 2, # 6 tablet, 1 Refills, Maintenance, 03/02/20 19:47:00 EST, Tablet, [facility] #[id number], 162.56, cm, 01/04/20 9:40:00 ES... 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 3death of sister, caring for mother w/ dementia 4repeat screening colonoscopy in 2020 Vital Signs Most recent to oldest [Reference Range]: 1 2 Height 162.56 cm (08/22/13 4:23 PM) 162.56 cm (08/03/13 2:38 PM) Weight 78.0 kg (08/22/13 4:23 PM) 75 kg (08/03/13 2:38 PM) Pulse Rate [55-90 bpm] 88 bpm (08/22/13 4:23 PM) 86 bpm (08/03/13 2:38 PM) Body Mass Index [18.50-24.99] 29.52 *H* (08/22/13 4:23 PM) 28.38 *H* (08/03/13 2:38 PM) Blood Pressure [90-138/55-84 mm Hg] 132/ 78mm Hg (08/22/13 4:23 PM) 126/72mm Hg (08/03/13 2:38 PM) Respiratory Rate [16-30 br/min] 22 br/mi n (08/22/13 4:23 PM) 18 br/min (08/03/13 2:38 PM) Temperature [96.8-100.4 DegF] 98.2 DegF (08/22/13 4:23 PM) 98.1 DegF (08/03/13 2:38 PM) Blood pressure sites Arm, left (08/22/13 4:23 PM) Leg, left (08/03/13 2:38 PM) Temperature Route Temporal (08/22/13 4:23 PM) Temporal (08/03/13 2:38 PM) Weight Obtained Via Standing scale (08/22/13 4:23 PM) Standing scale (08/03/13 2:38 PM) Social History Social History Type Response Smoking Status Former smoker, quit more than 30 days ago entered on: 12/05/21 Sex Note * Event Display: Laboratory Result Scanned Authored Date: Patient Care team information Care Team Personnel Name: Kahlil Sun MD Position: [facility] Primary Care Physician Member Role: PCP Address: Address: [address] [place] [address] Name: Sharri Prince Position: [facility] PCO Associate Professional Member Role: Lifetime Consulting Provider Care Team Related Persons Name: SHANITA MENDOZA Address: home [address] [place] [address] Name: SHANITA MENDOZA Address: home [address] Name: ULICES PEARSON Name: ULICES ESPARZA Address: [place] [address] Name: LALA LI
--- OUTSIDE RECORDS SUMMARY | 2022-12-13 21:35 | XMS_ITS | Continuity of Care Document ---
Author Name Unknown Organization [facility] Address [address] [place] [address]- Care Team Providers Care Reducer Name Role Phone Kahlil Sun MD Primary Care Physician [phone] Encounter [facility] [place] Date(s): 09/16/22 - 10/16/22 [facility] [address]- [place] Allergies, Adverse Reactions, Alerts Substance Reaction [...] or observed. 2Result Comment: #2, [facility] 3Result Comment: [facility] 4Result Comment: pharmacy 5Location History: [facility] 6Admin Note: vis 08/31/11 7Admin Note: ADMIN.BY RN 8Result Comment: [facility] 9Admin Note: Admin. by RN 10Admin Note: Admin. by RN 11Admin Note: Admin. 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 USE... Start Date: 11/13/20 Status: Ordered albuterol 0.083% inhalation solution 3 mL = 2.5 mg, Inhalation, Every 6 hours, PRN Wheezing/Shortness of Breath, # 60 each, 0 Refills, Maintenance, 06/07/20 12:51:00 EDT, Solution, [facility] #[id number], 162.56, cm, 05/23/20 14:31:00 EDT, Height, 77, [...] 2 Refills, Maintenance, 08/30/22 11:09:00 EDT, Gel, [facility] #[id number], 1 applic... Start Date: 08/30/22 Status: Ordered benzoyl peroxide 2.5% topical gel 1 application, Topically, 2 times a day, keep away from eyes and mucous membranes. clean affected area before application. Start daily and increase to twice a day if tolerated., # 60 Gm, 3 Refills, Maintenance, 09/08/22 22:51:00 EDT, [facility]... Start Date: 09/08/22 Status: Ordered Biktarvy oral tablet 1 tablet, By Mouth, Daily, # 30 tablet, 12 Refills, Maintenance, 04/17/22 7:54:00 EST, [facility] #[id number], 1 tablet By Mouth Daily, 162.56, cm, 04/16/22 16:00:00 EST, Height, 87.6, kg, 10/24/21 8:00:00 EDT, Dry Weight Start Date: 04/17/22 Status: Ordered Biktarvy oral tablet See Instructions, TAKE 1 TABLET BY MOUTH DAILY, # 90 tablet, 0 Refills, Maintenance, 07/15/22 13:50:00 EDT, [facility] #[id number], 90, TAKE 1 TABLET BY MOUTH DAILY, [...] 1 Refills, Maintenance, 07/10/21 18:35:00 EDT, Tablet, [facility] #[id number], Partial fill upon patient request if the [...] 08/12/22 15:06:00 EDT, Route to Pharmacy Electronically, [facility] #[id number], 162.56, cm, 07/30/22 10:55:00 EDT, Height, 79.... Start Date: 08/12/22 Status: Ordered Colace Clear 50 mg oral capsule 1 capsule = 50 mg, By Mouth, 2 times a day, PRN as needed for constipation, # 60 capsule, 0 Refills, Maintenance, 12/05/21 15:09:00 EDT, [facility] #[id number], Partial fill upon patient requestif the prescription is for a schedule II opioid nhi... Start Date: 12/05/21 Status: Ordered diclofenac 1% topical gel = 2 Gm, Topically, 4 times a day, PRN for pain, not to exceed: 10 gm/day, # 100 Gm, 1 Refills, Maintenance, 05/29/21 16:52:00 EDT, Gel, [facility], Partial fill upon patient request if the prescription is for a schedule II opioid... Start Date: 05/29/21 Status: Ordered Dulera 200 mcg-5 mcg/inh inhalation aerosol 2 puffs, Inhalation, 2 times a day, # 1 each, 3 Refills, Maintenance, 01/28/21 16:44:00 EST, Aerosol, [facility], STOP FLOVENT, 2 puffs Inhalation 2 times a day,x30 days, 162, cm,01/28/21 16:02:00 EST, Height, 86.3, kg, 09/29/20 1... Start Date: 01/28/21 Stop Date: 05/28/21 Status: Ordered escitalopram 20 mg oral tablet 1 tablet = 20 mg, By Mouth, Daily, # 90 tablet, 0 Refills, Maintenance, 07/30/22 12:03:00 EDT, Tablet, [facility] #[id number], Partial fill upon patient request if the prescription is for a schedule II opioid drug., 162.56, cm, 07/30/22 10:55:00... Start Date: 07/30/22 Status: Ordered ferrous fumarate 324 mg oral tablet 1 tablet = 324 mg, By Mouth, Every other day, # 45 tablet, 0 Refills, Maintenance, 07/31/22 11:19:00 EDT, Tablet, [facility] #[id number], Partial fill upon patient request if the [...] Gm, 5 Refills, Maintenance, 07/19/19 15:19:00 EDT, [place], [facility] #23149, 2 sprays Nares, Both Daily in AM,x30 [...] 09/24/22 17:20:00 EDT, Route to Pharmacy Electronically, [facility] #[id number], 162.56, cm, 09/17/22 12:56:00 EDT, Heigh... Start [...] Instructions, # 1 each, Maintenance, covering for [facility] Blood pressure monitor neededto [...] 2 Refills, Maintenance, 07/30/22 12:17:00 EDT, Syrup, [facility] #[id number], 30 mL By Mouth 4 times a day, 162.56, cm, 07/30/22 10:55:00 EDT,Height, 79.54, kg, 07/30/22 10:55:00 EDT, Dry Weight Start Date: 07/30/22 Status: Ordered losartan 100 mg oral tablet 1 tablet, By Mouth, Daily, # 30 tablet, 5 Refills, [facility] #[id number], 162, cm, 10/09/21 16:19:00 EDT, Height, 86.3, kg, 09/29/20 15:30:00 EDT, Dry Weight Start Date: 10/20/21 Status: Ordered meclizine 25 mg oral tablet 1 tablet = 25 mg, By Mouth, 2 times a day, # 30 tablet, 1 Refills, Maintenance, 07/10/21 17:25:00 EDT, Tablet, [facility] #[id number], 162, cm, 06/19/21 15:40:00 EDT, Height, 86.3, kg, 09/29/20 15:30:00 EDT, Dry Weight Start Date: 07/10/21 Status: Ordered multivitamin with iron Multiple Vitamins with Iron oral tablet 1 tablet, By Mouth, Daily, # 30 tablet, 11 Refills, Maintenance, 04/17/22 7:51:00 EST, Tablet, [facility] #[id number], 1 tablet By Mouth Daily, 162.56, cm, 04/16/22 16:00:00 EST, Height, 87.6, kg, 10/24/21 8:00:00 EDT, Dry Weight Start Date: 04/17/22 Status: Ordered Narcan 4 mg/0.1 mL nasal spray = 4 mg, Inhalation, Once, # 2 each, 1 Refills, Soft Stop, 10/29/20 12:23:00 EDT, [facility] #[id number], Partial fill upon patient request if the prescription is for a schedule II opioid drug., 162, cm, 09/29/20 15:30:00 EDT, Height, 86.3, kg, 08... Start Date: 10/29/20 Status: Ordered ondansetron 4 mg oral tablet 1 tablet = 4 mg, By Mouth, Daily, PRN Nausea & Vomiting, # 10 tablet, 3 Refills, Maintenance, 06/25/22 17:28:00 EDT, [facility] #[id number], 162.56, cm, 06/25/22 16:16:00 EDT, Height, 87.6, [...] 2 Refills, Maintenance, 08/21/22 17:50:00 EDT, Tablet, [facility] #[id number], this is correct dose. 200mg Rx just sent by mistake., 162.56, cm, 08/20/22 13:54:00 EDT, Height, 79.54, kg, 06... Start Date: 08/21/22 Status: Ordered Senna 8.6 mg oral tablet 1-3 tablet, By Mouth, Daily, for constipation, # 90 tablet, Refills 5, Tot. Refills 5, Maintenance,03/26/20 15:25:00 EST, Route to Pharmacy Electronically, [facility] #[id number] Tablet, 162.56, cm, 03/21/20 15:01:00 EST, Height, [...] 09/24/22 17:20:00 EDT, Route to Pharmacy Electronically, [facility] #[id number], 162.56, cm, 09/17/22 12:56:00 EDT, David... Start Date: 09/24/22 Status: Ordered Suboxone 8 mg-2 mg Sublingual Film 2 film, Sublingual, Daily, [id number] Dino dissolve under the tongue may fill less due 10/26/2022,# 28 film, 0 Refills, Maintenance, 10/15/22 16:24:00 EDT, Film, [facility], 2 film Sublingual Daily,x14 days,Instr:[id number] Li... Start Date: 10/15/22 Stop Date: 10/29/22 Status: Ordered SUMAtriptan 25 mg oral tablet 1 tablet = 25 mg, By Mouth, Daily, PRN as needed for migraine headache, may repeat dose after 2 hours up to a maximum of 2, # 6 tablet, 1 Refills, Maintenance, 03/02/20 19:47:00 EST, Tablet, [facility] #[id number], 162.56, cm, 01/04/20 9:40:00 ES... Start Date: 03/02/20 Status: Ordered zolpidem 5 mg oral tablet 0.5 tablet = 2.5 mg, By Mouth, Daily at bedtime, PRN as needed for sleep, Note decrease in dose., #14 tablet, 1 Refills, Maintenance, 09/10/22 17:51:00 EDT, [facility] #[id number], 09/10/22, 162.56, cm, 08/20/22 13:54:00 EDT, Height, [...] use disorder Confirmed Active Pancytopenia Confirmed Active *[id number] [employer] Lead April Saavedra Confirmed Active Portal hypertensive gastropathy [...] tolerance, and QD need over. 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 3death of sister, caring for mother w/ dementia 4repeat screening colonoscopy in 2020 Social History Social History Type Response Smoking Status Former smoker, quit more than 30 days ago entered on: 12/05/21 Sex Patient Care team information Care Team Personnel Name: Kahlil Sun MD Position: [facility] Physician - Primary Care Member Role: PCP Address: Address: [address] [place] [address] Name: Sharri Prince Position: [facility] PCO Associate Professional Member Role: Lifetime Consulting Provider Care Team Related Persons Name: SHANITA MENDOZA Address: home [address] [place] [id number] Name: SHANITA MENDOZA Address: home [id number] Name: ULICES PEARSON Name: ULICES ESPARZA Address: [place] [address] Name: LALA LI
--- OUTSIDE RECORDS SUMMARY | 2022-12-13 21:35 | XMS_ITS | Continuity of Care Document ---
Author Name Unknown Organization [facility] Address Unknown Care Team Providers Care Swatch Checker Name Role Phone Kahlil Sun MD Primary Care Physician [phone] Encounter [facility] Date(s): 11/29/20 - 12/29/20 [facility] Allergies, Adverse Reactions, Alerts Substance [...] 2Result Comment: [facility] 4[facility] Comment: [facility] 5Location History: [place] 6Admin [...] 1 Refills, Maintenance, 09/12/20 16:18:00EDT, CR Tablet, [facility] #[id number], Partial fill upon patient request if the prescription is for a schedule II opioid drug., 162, cm, 09/12/20... Start Date: 09/12/20 Status: Ordered acyclovir 400 mg oral tablet 1 tablet = 400 mg, By Mouth, 2 times a day, # 10 tablet, 5 Refills, Maintenance, 01/26/20 16:20:00 EST, [facility], 162.56, cm, 10/09/19 10:36:00 EDT, Height, 72.3, kg, 09/26/18 16:01:00 EDT, Dry Weight Start Date: 01/26/20 Stop Date: 02/25/20 Status: Ordered Albuterol (Eqv-ProAir HFA) 90 mcg/inh inhalation aerosol 2 puffs, Inhalation, Every 4 hours, PRN NEEDED FOR WHEEZING/SHORTNESS OF BREATH, USE WITH SPACERCHAMBER, # 8.5 Gm, 5 Refills, [facility] #[id number], 16, INHALE 2 PUFFS INTO LUNGS EVERY 4 HOURS NEEDED FOR WHEEZING/SHORTNESS OF BREATH. USE... Start Date: 11/13/20 Status: Ordered albuterol 0.083% inhalation solution 3 mL = 2.5 mg, Inhalation, Every 6 hours, PRN Wheezing/Shortness of Breath, # 60 each, 0 Refills, Maintenance, 06/07/20 12:51:00 EDT, Solution, [facility] #82957, 162.56, cm, 05/23/20 14:31:00 EDT, Height, 77, [...] tablet, 3 Refills, Maintenance, 03/02/20 19:50:00 EST, [facility] #80498, 1 tablet By Mouth Daily, 162.56, cm, 01/04/20 9:40:00 EST, Height, 72.3, kg, 09/26/18 16:01:00 EDT, Dry Weight Start Date: 03/02/20 Status: Ordered Blood Pressure Meter Blood Pressure Meter, See Instructions, # 1 each, Refills 0, Tot. Refills 0, Maintenance, Use for, 07/11/18 16:11:47 EDT, Compound Start Date: 07/11/18 Status: Ordered buprenorphine-naloxone 12 mg-3 mg sublingual film 1 film, Sublingual, Daily, [id number]. dissolve under the tongue. dose increase from 8mg due 12/24/2020, # 7 film, 0 Refills, Maintenance, 12/18/20 22:37:00 EDT, Film, [facility], Partial fill upon patient request if the prescripti... Start Date: 12/18/20 Status: Ordered cetirizine 10 mg oral tablet 1 tablet = 10 mg, By Mouth, Daily, For allergies., # 30 tablet, 2 Refills, Maintenance, 06/29/19 16:02:00 EDT, Tablet, [facility] #78543, 162.56, cm, 05/03/19 16:30:00 EST, Height, 72.3, kg, 09/26/18 16:01:00 EDT, Dry Weight Start Date: 06/29/19 Status: Ordered cloNIDine 0.1 mg oral tablet 0.1 mg, 1, tablet, By Mouth, 3 times a day, as needed for anxiety, # 25 tablet, Refills 0, Tot. Refills 0, Maintenance, 10/10/19 21:36:00 EDT, Route to Pharmacy Electronically, [facility] #[id number], 162.56, cm, 10/09/19 10:36:00 EDT, Height, 72... Start Date: 10/10/19 Status: Ordered escitalopram 5 mg oral tablet 1 tablet = 5 mg, Daily, Maintenance, 12/17/20 22:33:00 EDT Start Date: 12/17/20 Status: Ordered Flonase 50 mcg/inh nasal spray 2 sprays, Nares, Both, Daily in AM, # 16 Gm, 5 Refills, Maintenance, 07/19/19 15:19:00 EDT, [place], [facility] #57763, 2 sprays Nares, Both Daily in AM,x30 days, 162.56, cm, 05/03/19 16:30:00 EST, Height, 72.3, kg, 09/26/18 16:01:00 EDT, Dry... Start Date: 07/19/19 Stop Date: 01/15/20 Status: Ordered Flovent HFA 44 mcg/inh inhalation aerosol 1 puffs, Inhalation, 2 times a day, # 1 each, 5 Refills, Maintenance, 06/07/20 12:52:00 EDT, Aerosol, [facility] #30787, 162.56, cm, 05/23/20 14:31:00 EDT, Height, 77, [...] Instructions, # 1 each, Maintenance, covering for [facility] Blood pressure monitor neededto monitor blood [...] 3 Refills, Maintenance, 03/02/20 19:48:00 EST, Tablet, [facility] #29989, 30 day supply preferred for present, 162.56, [...] 05/12/18 14:45:33 EDT, Route to Pharmacy Electronically, [id number], [facility] Start Date: 05/12/18 Status: Ordered LORazepam 0.5 mg oral tablet 0.5 tablet = 0.25 mg, By Mouth, 2 times a day, PRN as needed for anxiety, # 20 tablet, 1 Refills, Maintenance, 05/16/19 23:11:00 EDT, Tablet, [facility] #84921, 162.56, cm, 05/03/19 16:30:00 EST, Height, 72.3, kg, 09/26/18 16:01:00 EDT, Dry... Start Date: 05/16/19 Status: Ordered losartan 100 mg oral tablet 1 tablet, By Mouth, Daily, # 30 tablet, 5 Refills, Maintenance, 09/24/20 16:00:00 EDT, [facility] #61635, 162, cm, 09/19/20 15:59:00 EDT, Height, 82.1, kg, 06/08/20 17:25:00 EDT, Dry Weight Start Date: 09/24/20 Status: Ordered meclizine 25 mg oral tablet 1 tablet = 25 mg, By Mouth, 2 times a day, # 30 tablet, 1 Refills, Maintenance, 03/30/19 15:49:00 EST, Tablet, [facility] #47192, 162.56, cm, 03/08/19 14:34:00 EST, Height, 72.3, kg, 09/26/18 16:01:00 EDT, Dry Weight Start Date: 03/30/19 Status: Ordered Narcan 4 mg/0.1 mL nasal spray = 4 mg, Inhalation, Once, # 2 each, 1 Refills, Soft Stop, 10/29/20 12:23:00 EDT, [facility] #37172, Partial fill upon patient request if the [...] each, 0 Refills, Maintenance, 06/04/20 16:46:00 EDT, [facility] #94766, OK to sub for any gallon prep, used as directed, 162.56, cm, 05/23/20 14:31:00 EDT, Height, 77, kg, 03/21/20 15:04:00 EST, Dry We... Start Date: 06/04/20 Status: Ordered Senna 8.6 mg oral tablet 1-3 tablet, By Mouth, Daily, for constipation, # 90 tablet, Refills 5, Tot. Refills 5, Maintenance,03/26/20 15:25:00 EST, Route to Pharmacy Electronically, [facility] #60343 Tablet, 162.56, cm, 03/21/20 15:01:00 EST, Height, 77, kg, ... Start Date: 03/26/20 Status: Ordered Spacer for inhalers Spacer for inhalers, See Instructions, # 1 each, Refills 0, Tot. Refills 0, Maintenance, Use with inhalers as directed. [place] 06/07/19 15:07:00 EDT, Compound, 162.56, cm, 05/03/19 [...] 1 Refills, Maintenance, 03/02/20 19:47:00 EST, Tablet, [facility] #92357, 162.56, cm, 01/04/20 9:40:00 ES... Start Date: 03/02/20 Status: Ordered Zofran 4 mg oral tablet 1 tablet = 4 mg, By Mouth, 2 times a day, PRN Nausea & Vomiting, # 10 tablet, 0 Refills, Maintenance, 12/01/20 20:26:00 EDT, Tablet, [facility] #36397, 162, cm, 10/29/20 17:08:00 EDT, Height, 86.3, [...] 2016 Active Migraine(Confirmed) Active Opioid dependence(Confirmed) Active *[id number] Care Partn er April Saavedra(Confirmed) Active Health [...] tolerance, and QD need over. 2genotype 02/02: [id number] is only mutation detected 3death of sister, caring for mother w/ dementia 4repeat screening colonoscopy in 2020 Social History Social History Type Response Smoking Status Former smoker, quit more than 30 days ago entered on: 10/29/20 Sex
--- OUTSIDE RECORDS SUMMARY | 2022-12-13 21:35 | XMS_ITS | Continuity of Care Document ---
Author Name Unknown Organization [facility] Address [address] [place] [address]- Care Team Providers Care Production Associate Name Role Phone Dino PEREZ, Kahlil Barrera Primary Care Physician [phone] [place] [facility]/23/19 [facility] [address] [place] [address]- [facility] Attending Physician: Cristy SNYDER, Cha Ozuna Admitting Physician: Cristy SNYDER, Cha Ozuna Referring Physician: Cristy SNYDER, Cha Ozuna Allergies, Adverse Reactions, Alerts Substance Reaction Severity [...] sublingual film 0.5 each, Sublingual, Daily, [place] [id number] Covering for [place] [id number], # 4 film, 0 Refills, Maintenance, 03/30/19 17:44:00 EST, [facility] #79133, 0.5 each Sublingual Daily,x7 days,Instr:[place] [id number] Covering for [place] [id number]... Start Date: 03/30/19 Stop Date: 04/06/19 Status: Ordered Flonase 50 mcg/inh nasal spray 1 sprays, Nares, Both, 2 times a day, # 1 each, 0 Refills, Maintenance, 05/24/18 16:00:06 EDT, [place], 1 sprays Nares, Both 2 times a [...] 03/12/19 21:36:00 EST, Route to Pharmacy Electronically, [facility] #[id number], dose increase from 5mg,162.56, cm, 03/08/19 14:34:00 EST, Height, 72.3, kg... Start Date: 03/12/19 Status: Ordered loratadine 10 mg oral tablet 10 mg, 1, tablet, By Mouth, Daily, PRN, # 30 tablet, Refills 3, Tot. Refills 3, Maintenance, allergy/itch, 05/12/18 14:45:33 EDT, Route to Pharmacy Electronically, [id number], [facility] Start Date: 05/12/18 Status: Ordered [...] 1 Refills, Maintenance, 03/30/19 15:49:00 EST, Tablet, [facility] #[id number], 162.56, cm, 03/08/19 14:34:00 EST, Height, 72.3, [...] 12/05/15 14:17:14, Aerosol, Route to Pharmacy Electronically, [id number], [facility] [address] Start Date: 12/05/15 Status: Ordered Senna 8.6 mg oral tablet 1-3 tablet, By Mouth, Daily, for constipation, # 90 tablet, Refills 5, Tot. Refills 5, Maintenance,02/17/18 15:12:45 EST, Route to Pharmacy Electronically, [id number], [facility] Tablet Start Date: 02/17/18 Status: Ordered SUMAtriptan 25 mg oral tablet 1 tablet = 25 mg, By Mouth, Daily, PRN as needed for migraine headache, may repeat dose after 2 hours up to a maximum of 2, # 6 tablet, 1 Refills, Maintenance, 04/18/19 13:31:00 EST, Tablet, [facility] #65725, 162.56, cm, 03/08/19 14:34:00 E... Start Date: [...] 2016 Active Migraine(Confirmed) Active Opioid dependence(Confirmed) Active *[id number]-[facility] Partn er April Saavedra(Confirmed) Active Health [...] tolerance, and QD need over. 2genotype 02/02: [id number] is only mutation detected 3death of sister, caring for mother w/ dementia 4repeat screening colonoscopy in 2020 Social History Social History Type Response Smoking Status Former smoker, quit more than 30 days ago entered on: 05/24/18 Sex
--- OUTSIDE RECORDS SUMMARY | 2022-12-13 21:35 | XMS_ITS | Continuity of Care Document ---
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 Name Role Phone Dino PEREZ, Kahlil Barrera Primary Care Physician [place] [facility] [place]16[place] - 02/26/19 [facility] [address] [place] [address]- [facility] Attending Physician: Admellen, [id number] Admitting Physician: Admtr, Ankit Referring Physician: Admtr, Ar8 Allergies, Adverse Reactions, Alerts Substance Reaction Severity Status amitriptyline 1 Mental status Active aspirin 2 facial edema and sob Severe Active nevirapine Active Levaquin 3 Active Ziagen Active 1dreaming, near halliucinations 2facial edema and sob 3itchy, nervous Immunizations Given and Recorded Vaccine Date Status Refusal Reason hepatitis B adult vaccine 08/23/18 Given hepatitis B adult vaccine 08/23/18 Given hepatitis B adult vaccine 1 08/29/01 Given hepatitis B adult vaccine 2 03/10/01 Given hepatitis B adult vaccine 3 10/28/00 Given influenza virus vaccine, inactivated 4 12/19/17 Re corded influenza virus vaccine, inactivated 12/09/15 Give n influenza virus vaccine, inactivated 12/04/14 Give n influenza virus vaccine, inactivated 12/14/13 Give n influenza virus vaccine, inactivated 12/15/12 Give n influenza virus vaccine, inactivated 5 11/18/11 Gi feliciano influenza virus vaccine, inactivated 11/20/09 Give n influenza virus vaccine, inactivated 6 01/30/04 Gi feliciano Afluria (oldterm) 12/03/16 Given pneumococcal 13-valent vaccine 7 03/24/12 Given Adacel (Tdap) (oldterm) 05/16/09 Given Hepatitis B Vaccine (old term) 8 04/11/09 Given Hepatitis B Vaccine (old term) 9 12/22/07 Given Hepatitis B Vaccine (old term) 12/28/06 Given Hepatitis B Vaccine (old term) 10 09/27/01 Given Influenza Vaccine (oldterm) 11 12/27/08 Given Influenza Vaccine (oldterm) 12 12/28/06 Given Influenza Inactive (IM) (oldterm) 13 11/29/08 Give n Influenza Virus Vaccine (oldterm) 12/22/07 Given diphtheria-tetanus toxoids (DT) 14 02/16/07 Given Hepatitis A Vaccine (oldterm) 12/28/06 Given Hepatitis A Vaccine (oldterm) 15 10/27/05 Given Pneumococcal Poly (PPV23) (oldterm) 11/10/06 Given Hepatitis A Adult Vaccine 16 04/14/05 Given tetanus-diphtheria toxoids (Td) 03/10/01 Given 1Admin Note: Admin. by RN 2Admin Note: Admin. by RN 3Admin Note: Admin. by RN 4Location History: [facility] 5Admin Note: vis 08/31/11 6Admin Note: ADMIN.BY RN 7Admin Note: vis 06/15/15 8Admin Note: dose #6 (3rd in 2nd series) 9Admin Note: dose #5 10Admin Note: #3 11Admin Note: LITO sanofi-pasteur 12Admin Note: ADMIN BEN, RAIL LOADER 13Admin Note: BY LEXI Agudelo 14Admin Note: not Adacel 15Admin Note: #2 16Admin Note: Admin. by RN Medications 10,000 lux [...] mg sublingual film 0.5 each, Sublingual, Daily, [place] [id number], # 4 film, 0 Refills, Maintenance, 02/02/19 17:01:00EST, 0.5 each Sublingual Daily,x7 days,Instr:[place] [id number], 162.56, cm, 09/26/18 16:01:28 EDT, Height, 72.3, kg, 09/26/18 16:01:28 EDT, Dry Weight Start Date: 02/02/19 Stop Date: 02/09/19 Status: Ordered Flonase 50 mcg/inh nasal spray 1 sprays, Nares, Both, 2 times a day, # 1 each, 0 Refills, Maintenance, 05/24/18 16:00:06 EDT, [place], 1 sprays Nares, Both 2 times a [...] # 1 each, Maintenance, [facility] Blood pressure monitor neededto monitor blood pressure [...] EDT Start Date: 07/11/18 Status: Ordered lisinopril 5 mg oral tablet 5 mg, 1, tablet, By Mouth, Daily, # 30 tablet, Refills 11, Tot. Refills 11, Maintenance, 08/23/18 16:58:35 EDT, Route to Pharmacy Electronically, [id number], [facility] Start Date: 08/23/18 Status: Ordered loratadine 10 mg oral tablet 10 mg, 1, tablet, By Mouth, Daily, PRN, # 30 tablet, Refills 3, Tot. Refills 3, Maintenance, allergy/itch, 05/12/18 14:45:33 EDT, Route to Pharmacy Electronically, [id number], [facility] Start Date: 05/12/18 Status: Ordered LORazepam [...] 12/05/15 14:17:14, Aerosol, Route to Pharmacy Electronically, [id number], [facility] [id number] Start Date: 12/05/15 Status: Ordered Senna 8.6 mg oral tablet 1-3 tablet, By Mouth, Daily, for constipation, # 90 tablet, Refills 5, Tot. Refills 5, Maintenance,02/17/18 15:12:45 EST, Route to Pharmacy Electronically, [id number], [facility] Tablet Start Date: 02/17/18 Status: Ordered [...] 2016 Active Migraine(Confirmed) Active Opioid dependence(Confirmed) Active *[id number]-[facility] Partn renee Saavedra(Confirmed) Active Health care maintenance(Confirmed) [...] tolerance, and QD need over. 2genotype 02/02: [id number] is only mutation detected 3death of sister, [...] Respiratory Rate [16-30 br/min] 22 br/mi n (6/24/14 4:23 PM) 18 br/min (08/03/13 2:38 PM) [...]
--- OUTSIDE RECORDS SUMMARY | 2022-12-13 21:35 | XMS_ITS | Continuity of Care Document ---
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 2Result Comment: #2, [facility] 3Result Comment: [facility] 4Result Comment: pharmacy 5Location History: [facility] 6Admin Note: vis 08/31/11 7Admin Note: ADMIN.BY RN 8Result Comment: [facility] 9Admin Note: Admin. by RN 10Admin Note: Admin. by RN 11Admin Note: Admin. 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 USE... Start Date: 11/13/20 Status: Ordered albuterol 0.083% inhalation solution 3 mL = 2.5 mg, Inhalation, Every 6 hours, PRN Wheezing/Shortness of Breath, # 60 each, 0 Refills, Maintenance, 06/07/20 12:51:00 EDT, Solution, [facility] #03700, 162.56, cm, 05/23/20 14:31:00 EDT, Height, 77, [...] tablet, 3 Refills, Maintenance, 06/13/21 22:19:00 EDT, [facility] #76503, 1 tablet By Mouth Daily, 162, cm, [...] 1 Refills, Maintenance, 07/10/21 18:35:00 EDT, Tablet, [facility] #76167, Partial fill upon patient request if the prescription is for a schedule II opioid drug., 162, cm, 06/19/21 15:40:00 EDT... Start Date: 07/10/21 Status: Ordered cloNIDine 0.1 mg oral tablet 0.1 mg, 1, tablet, By Mouth, 3 times a day, as needed for anxiety, # 25 tablet, Refills 0, Tot. Refills 0, Maintenance, 10/10/19 21:36:00 EDT, Route to Pharmacy Electronically, [facility] #[id number], 162.56, cm, 10/09/19 10:36:00 EDT, Height, 72... Start Date: 10/10/19 Status: Ordered diclofenac 1% topical gel = 2 Gm, Topically, 4 times a day, PRN for pain, not to exceed: 10 gm/day, # 100 Gm, 1 Refills, Maintenance, 05/29/21 16:52:00 EDT, Gel, [facility], Partial fill upon patient request if the prescription is for a schedule II opioid... Start Date: 05/29/21 Status: Ordered Dulera 200 mcg-5 mcg/inh inhalation aerosol 2 puffs, Inhalation, 2 times a day, # 1 each, 3 Refills, Maintenance, 01/28/21 16:44:00 EST, Aerosol, [facility], STOP FLOVENT, 2 puffs Inhalation 2 times a day,x30 days, 162, cm,01/28/21 16:02:00 EST, Height, 86.3, kg, 09/29/20 1... Start Date: 01/28/21 Stop Date: 05/28/21 Status: Ordered escitalopram 10 mg oral tablet 1 tablet = 10 mg, By Mouth, Daily, # 30 tablet, 11 Refills, Maintenance, 07/31/21 17:50:00 EDT, Tablet, [facility] #[id number], Partial fill upon patient request if the [...] Gm, 5 Refills, Maintenance, 07/19/19 15:19:00 EDT, [place], [facility] #[id number], 2 sprays Nares, Both Daily in AM,x30 [...] 04/24/21 12:37:00 EST, Route to Pharmacy Electronically, [facility] #[id number], STOP HCTZ, 162, cm, 03/24/21 18:41:00 EST, [...] 16:17:37 EDT Start Date: 07/11/18 Status: Ordered LORazepam 0.5 mg oral tablet 0.5 tablet = 0.25 mg, By Mouth, 2 times a day, PRN as needed for anxiety, # 20 tablet, 1 Refills, Maintenance, 05/16/19 23:11:00 EDT, Tablet, [facility] #75787, 162.56, cm, 05/03/19 16:30:00 EST, Height, 72.3, kg, 09/26/18 16:01:00 EDT, Dry... Start Date: 05/16/19 Status: Ordered losartan 100 mg oral tablet 1 tablet, By Mouth, Daily, # 30 tablet, 5 Refills, [facility] #04419, 162, cm, 10/09/21 16:19:00 EDT, Height, 86.3, kg, 09/29/20 15:30:00 EDT, Dry Weight Start Date: 10/20/21 Status: Ordered meclizine 25 mg oral tablet 1 tablet = 25 mg, By Mouth, 2 times a day, # 30 tablet, 1 Refills, Maintenance, 07/10/21 17:25:00 EDT, Tablet, [facility] #17562, 162, cm, 06/19/21 15:40:00 EDT, Height, 86.3, kg, 09/29/20 15:30:00 EDT, Dry Weight Start Date: 07/10/21 Status: Ordered multivitamin with iron Multiple Vitamins with Iron oral tablet 1 tablet, By Mouth, Daily, # 30 tablet, 11 Refills, Maintenance, 09/06/21 19:08:00 EDT, Tablet, [facility] #78483, 1 tablet By Mouth Daily, 162, cm, 07/31/21 16:00:00 EDT, Height, 86.3, kg,09/29/20 15:30:00 EDT, Dry Weight Start Date: 09/06/21 Status: Ordered Narcan 4 mg/0.1 mL nasal spray = 4 mg, Inhalation, Once, # 2 each, 1 Refills, Soft Stop, 10/29/20 12:23:00 EDT, [facility] #04897, Partial fill upon patient request if the prescription is for a schedule II opioid drug., 162, cm, 09/29/20 15:30:00 EDT, Height, 86.3, kg, 08... Start Date: 10/29/20 Status: Ordered ondansetron 4 mg oral tablet 1 tablet = 4 mg, By Mouth, Daily, PRN Nausea & Vomiting, # 10 tablet, 3 Refills, Maintenance, 10/08/21 22:17:00 EDT, [facility] #10766, 162, cm, 10/09/21 16:19:00 EDT, Height, 86.3, [...] cm, 10/09/21 16:19:00 EDT, Height, 86.3, kg, 01... Start Date: 10/09/21 Status: Ordered pantoprazole 20 [...] each, 0 Refills, Maintenance, 06/04/20 16:46:00 EDT, [facility] #83504, OK to sub for any gallon prep, used as directed, 162.56, cm, 05/23/20 14:31:00 EDT, Height, 77, kg, 03/21/20 15:04:00 EST, Dry We... Start Date: 06/04/20 Status: Ordered Senna 8.6 mg oral tablet 1-3 tablet, By Mouth, Daily, for constipation, # 90 tablet, Refills 5, Tot. Refills 5, Maintenance,03/26/20 15:25:00 EST, Route to Pharmacy Electronically, [facility] #[id number] Tablet, 162.56, cm, 03/21/20 15:01:00 EST, Height, [...] 5 Refills, Maintenance, 04/24/21 12:36:00 EST, Tablet, [facility] #[id number], STOP HCTZ, 162, cm, 03/24/21 18:41:00 EST, [...] under the tongue increase in dose Dino [id number] due on/after 09/25/2021, # 70 film, 0 Refills, Maintenance, 09/25/21 14:31:00 EDT, Film, [facility], 2.5 film Sublingual Daily,x28 days,In... Start Date: 09/25/21 Stop Date: 10/23/21 Status: Ordered Suboxone 8 mg-2 mg Sublingual Film 2.5 film, Sublingual, Daily, dissolve under the tongue increase in dose [place] [id number] coveringfor [place] due on/after 08/22/2021, # 35 film, 0 Refills, Maintenance, 08/22/21 9:27:00 EDT, Film,[facility], 2.5 film Subli... Start Date: 08/22/21 Stop Date: 09/05/21 Status: Ordered SUMAtriptan 25 mg oral tablet 1 tablet = 25 mg, By Mouth, Daily, PRN as needed for migraine headache, may repeat dose after 2 hours up to a maximum of 2, # 6 tablet, 1 Refills, Maintenance, 03/02/20 19:47:00 EST, Tablet, [facility] #[id number], 162.56, cm, 01/04/20 9:40:00 ES... Start Date: 03/02/20 Status: Ordered zolpidem 5 mg oral tablet 1 tablet = 5 mg, By Mouth, Daily at bedtime, PRN as needed for sleep, # 30 tablet, 1 Refills, Maintenance, 10/09/21 22:14:00 EDT, [facility] #16564, 162, cm, 10/09/21 16:19:00 EDT, Height, 86.3, [...] Obese class I(Confirmed) Active Opioid dependence(Confirmed) Active *[phone] Care Partn er April Saavedra(Confirmed) Active Health [...] tolerance, and QD need over. 2genotype 02/02: [id number] is only mutation detected 3death of sister, caring for mother w/ dementia 4repeat screening colonoscopy in 2020 Social History Social History Type Response Smoking Status Former smoker, quit more than 30 days ago entered on: 10/29/20 Sex Care Team Personnel Name: Kahlil Sun MD Address: [address] [place] [address]
--- OUTSIDE RECORDS SUMMARY | 2022-12-13 21:35 | XMS_ITS | Continuity of Care Document ---
Author Name Unknown Organization [facility] Address Unknown Care Team Providers Care Package Pick Up Name Role Phone Kahlil Sun MD Primary Care Physician [phone] [place] [facility] [place]/21 [facility] Attending Physician: Kahlil Sun MD Admitting [...] events reported or observed. 2Result Comment: #2, [facility] 3Result Comment: [facility] 4Result Comment: pharmacy 5Location History: [facility] 6Admin Note: vis 08/31/11 7Admin Note: ADMIN.BY RN 8Result Comment: [facility] 9Admin Note: Admin. by RN 10Admin Note: Admin. by RN 11Admin Note: Admin. 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 USE... Start Date: 11/13/20 Status: Ordered albuterol 0.083% inhalation solution 3 mL = 2.5 mg, Inhalation, Every 6 hours, PRN Wheezing/Shortness of Breath, # 60 each, 0 Refills, Maintenance, 06/07/20 12:51:00 EDT, Solution, [facility] #[id number], 162.56, cm, 05/23/20 14:31:00 EDT, Height, 77, [...] tablet, 3 Refills, Maintenance, 06/13/21 22:19:00 EDT, [facility] #[id number], 1 tablet By Mouth Daily, 162, cm, [...] 1 Refills, Maintenance, 07/10/21 18:35:00 EDT, Tablet, [facility] #60748, Partial fill upon patient request if the prescription is for a schedule II opioid drug., 162, cm, 06/19/21 15:40:00 EDT... Start Date: 07/10/21 Status: Ordered cetirizine 10 mg oral tablet 1 tablet = 10 mg, By Mouth, Daily, For allergies., # 30 tablet, 2 Refills, Maintenance, 06/29/19 16:02:00 EDT, Tablet, [facility] #[id number], 162.56, cm, 05/03/19 16:30:00 EST, Height, 72.3, kg, 09/26/18 16:01:00 EDT, Dry Weight Start Date: 06/29/19 Status: Ordered cloNIDine 0.1 mg oral tablet 0.1 mg, 1, tablet, By Mouth, 3 times a day, as needed for anxiety, # 25 tablet, Refills 0, Tot. Refills 0, Maintenance, 10/10/19 21:36:00 EDT, Route to Pharmacy Electronically, [facility] #[id number], 162.56, cm, 10/09/19 10:36:00 EDT, Height, 72... Start Date: 10/10/19 Status: Ordered diclofenac 1% topical gel = 2 Gm, Topically, 4 times a day, PRN for pain, not to exceed: 10 gm/day, # 100 Gm, 1 Refills, Maintenance, 05/29/21 16:52:00 EDT, Gel, [facility], Partial fill upon patient request if the prescription is for a schedule II opioid... Start Date: 05/29/21 Status: Ordered Dulera 200 mcg-5 mcg/inh inhalation aerosol 2 puffs, Inhalation, 2 times a day, # 1 each, 3 Refills, Maintenance, 01/28/21 16:44:00 EST, Aerosol, [facility], STOP FLOVENT, 2 puffs Inhalation 2 times a day,x30 days, 162, cm,01/28/21 16:02:00 EST, Height, 86.3, kg, 09/29/20 1... Start Date: 01/28/21 Stop Date: 05/28/21 Status: Ordered escitalopram 10 mg oral tablet 1 tablet = 10 mg, By Mouth, Daily, # 30 tablet, 11 Refills, Maintenance, 07/31/21 17:50:00 EDT, Tablet, [facility] #[id number], Partial fill upon patient request if the prescription is for a schedule II opioid drug., 162, cm, 07/31/21 16:00:00 ED... Start Date: 07/31/21 Status: Ordered Flonase 50 mcg/inh nasal spray 2 sprays, Nares, Both, Daily in AM, # 16 Gm, 5 Refills, Maintenance, 07/19/19 15:19:00 EDT, [place], [facility] #[id number], 2 sprays Nares, Both Daily in AM,x30 days, 162.56, cm, 05/03/19 16:30:00 EST, Height, 72.3, kg, 09/26/18 16:01:00 EDT, Dry... Start Date: 07/19/19 Stop Date: 01/15/20 Status: Ordered fluconazole 150 mg oral tablet 1 tablet = 150 mg, By Mouth, Once, # 1 tablet, 1 Refills, Soft Stop, 01/08/21 19:37:00 EST, Tablet,[facility] #[id number], 162, cm, 12/17/20 23:19:00 EDT, Height, 86.3, [...] 04/24/21 12:37:00 EST, Route to Pharmacy Electronically, [facility] #[id number], STOP HCTZ, 162, cm, 03/24/21 18:41:00 EST, [...] # 1 each, Maintenance[facility] Blood pressure monitor neededto monitor blood pressure [...] 05/12/18 14:45:33 EDT, Route to Pharmacy Electronically, [id number], [facility] Start Date: 05/12/18 Status: Ordered LORazepam 0.5 mg oral tablet 0.5 tablet = 0.25 mg, By Mouth, 2 times a day, PRN as needed for anxiety, # 20 tablet, 1 Refills, Maintenance, 05/16/19 23:11:00 EDT, Tablet, [facility] #[id number], 162.56, cm, 05/03/19 16:30:00 EST, Height, 72.3, kg, 09/26/18 16:01:00 EDT, Dry... Start Date: 05/16/19 Status: Ordered losartan 100 mg oral tablet 1 tablet, By Mouth, Daily, # 30 tablet, 2 Refills, [facility] #[id number], 162, cm, 06/19/21 15:40:00 EDT, Height, 86.3, kg, 09/29/20 15:30:00 EDT, Dry Weight Start Date: 07/10/21 Status: Ordered meclizine 25 mg oral tablet 1 tablet = 25 mg, By Mouth, 2 times a day, # 30 tablet, 1 Refills, Maintenance, 07/10/21 17:25:00 EDT, Tablet, [facility] #[id number], 162, cm, 06/19/21 15:40:00 EDT, Height, 86.3, kg, 09/29/20 15:30:00 EDT, Dry Weight Start Date: 07/10/21 Status: Ordered multivitamin with iron Multiple Vitamins with Iron oral tablet 1 tablet, By Mouth, Daily, # 30 tablet, 11 Refills, Maintenance, 05/07/21 9:45:00 EST, Tablet, [facility] #[id number], Partial fill upon patient request if the prescription is for a schedule II opioid drug., 1 tablet By Mouth Daily, 162, cm, 030... Start Date: 05/07/21 Status: Ordered Narcan 4 mg/0.1 mL nasal spray = 4 mg, Inhalation, Once, # 2 each, 1 Refills, Soft Stop, 10/29/20 12:23:00 EDT, [facility] #[id number], Partial fill upon patient request if the [...] each, 0 Refills, Maintenance, 06/04/20 16:46:00 EDT, [facility] #[id number], OK to sub for any gallon prep, used as directed, 162.56, cm, 05/23/20 14:31:00 EDT, Height, 77, kg, 03/21/20 15:04:00 EST, Dry We... Start Date: 06/04/20 Status: Ordered predniSONE 50 mg oral tablet 1 tablet = 50 mg, By Mouth, Daily, # 7 tablet, 0 Refills, Maintenance, 01/28/21 16:37:00 EST, Tablet, [facility], Partial fill upon patient request if the prescription is for a schedule II opioid drug., 162, cm, 01/28/21 16:02:00 E... Start Date: 01/28/21 Stop Date: 02/04/21 Status: Ordered Senna 8.6 mg oral tablet 1-3 tablet, By Mouth, Daily, for constipation, # 90 tablet, Refills 5, Tot. Refills 5, Maintenance,03/26/20 15:25:00 EST, Route to Pharmacy Electronically, [facility] #[id number] Tablet, 162.56, cm, 03/21/20 15:01:00 EST, Height, [...] 5 Refills, Maintenance, 04/24/21 12:36:00 EST, Tablet, [facility] #54889, STOP HCTZ, 162, cm, 03/24/21 18:41:00 EST, [...] dissolve under the tongue increase in dose [facility] [id number] coveringfor Dino due on/after 07/25/2021, # 35 film, 0 Refills, Maintenance, 07/25/21 12:07:00 EDT, Film, [facility], 2.5 film Subl... Start Date: 07/25/21 Stop Date: 08/08/21 Status: Ordered SUMAtriptan 25 mg oral tablet 1 tablet = 25 mg, By Mouth, Daily, PRN as needed for migraine headache, may repeat dose after 2 hours up to a maximum of 2, # 6 tablet, 1 Refills, Maintenance, 03/02/20 19:47:00 EST, Tablet, [facility] #99863, 162.56, cm, 01/04/20 9:40:00 ES... Start Date: 03/02/20 Status: Ordered Zofran 4 mg oral tablet 1 tablet = 4 mg, By Mouth, 2 times a day, PRN Nausea & Vomiting, # 10 tablet, 1 Refills, Maintenance, 06/19/21 17:01:00 EDT, Tablet, [facility] #51235, 162, cm, 06/19/21 15:40:00 EDT, Height, 86.3, kg, 09/29/20 15:30:00 EDT, Dry Weight Start Date: 06/19/21 Status: Ordered zolpidem 5 mg oral tablet 1 tablet = 5 mg, By Mouth, Daily at bedtime, PRN as needed for sleep, # 25 tablet, 0 Refills, Maintenance, 07/31/21 17:57:00 EDT, [facility] #[id number], Partial fill upon patient request if theprescription [...] Obese class I(Confirmed) Active Opioid dependence(Confirmed) Active *[id number] Care Partn er April Saavedra(Confirmed) Active Health [...] tolerance, and QD need over. 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
--- OUTSIDE RECORDS SUMMARY | 2022-12-13 21:35 | XMS_ITS | Continuity of Care Document ---
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 by RN 10Admin Note: Admin. by RN 11Admin Note: Admin. 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 Start Date: 12/05/21 Status: Ordered acyclovir 400 mg oral tablet 1 tablet = 400 mg, By Mouth, 2 times a day, # 10 tablet, 5 Refills, Maintenance, 01/08/21 18:41:00 EST, [facility] #[id number], 162, cm, 12/17/20 23:19:00 EDT, Height, 86.3, kg, 09/29/20 15:30:00 EDT, Dry Weight Start Date: 01/08/21 Stop Date: 02/07/21 Status: Ordered Albuterol (Eqv-ProAir HFA) 90 mcg/inh inhalation aerosol 2 puffs, Inhalation, Every 4 hours, PRN NEEDED FOR WHEEZING/SHORTNESS OF BREATH, USE WITH SPACERCHAMBER, # 8.5 Gm, 5 Refills, [facility] #[id number], 16, INHALE 2 PUFFS INTO LUNGS EVERY 4 HOURS NEEDED FOR WHEEZING/SHORTNESS OF BREATH. USE... Start Date: 11/13/20 Status: Ordered albuterol 0.083% inhalation solution 3 mL = 2.5 mg, Inhalation, Every 6 hours, PRN Wheezing/Shortness of Breath, # 60 each, 0 Refills, Maintenance, 06/07/20 12:51:00 EDT, Solution, [facility] #[id number], 162.56, cm, 05/23/20 14:31:00 EDT, Height, 77, [...] 01/04/22 19:11:00 EST, Route to Pharmacy Electronically, [facility] #[id number], 162.56, cm, 11/0... Start Date: 01/04/22 Status: Ordered Biktarvy oral tablet 1 tablet, By Mouth, Daily, # 30 tablet, 12 Refills, Maintenance, 04/17/22 7:54:00 EST, [facility] #[id number], 1 tablet By Mouth Daily, 162.56, cm, [...] 1 Refills, Maintenance, 07/10/21 18:35:00 EDT, Tablet, [facility] #05914, Partial fill upon patient request if the prescription is for a schedule II opioid drug., 162, cm, 06/19/21 15:40:00 EDT... Start Date: 07/10/21 Status: Ordered cloNIDine 0.1 mg oral tablet 1, tablet, By Mouth, 3 times a day, PRN, # 270 tablet, Refills 0, Tot. Refills 0, Maintenance, NEEDED FOR ANXIETY, 05/13/22 16:45:00 EDT, Route to Pharmacy Electronically, [facility] #[id number], 162.56, cm, 05/07/22 12:32:00 EST, Height, 87.6... Start Date: 05/13/22 Status: Ordered Colace Clear 50 mg oral capsule 1 capsule = 50 mg, By Mouth, 2 times a day, PRN as needed for constipation, # 60 capsule, 0 Refills, Maintenance, 12/05/21 15:09:00 EDT, [facility] #[id number], Partial fill upon patient requestif the prescription is for a schedule II opioid nhi... Start Date: 12/05/21 Status: Ordered diclofenac 1% topical gel = 2 Gm, Topically, 4 times a day, PRN for pain, not to exceed: 10 gm/day, # 100 Gm, 1 Refills, Maintenance, 05/29/21 16:52:00 EDT, Gel, [facility], Partial fill upon patient request if the prescription is for a schedule II opioid... Start Date: 05/29/21 Status: Ordered Dulera 200 mcg-5 mcg/inh inhalation aerosol 2 puffs, Inhalation, 2 times a day, # 1 each, 3 Refills, Maintenance, 01/28/21 16:44:00 EST, Aerosol, [facility], STOP FLOVENT, 2 puffs Inhalation 2 times a day,x30 days, 162, cm,01/28/21 16:02:00 EST, Height, 86.3, kg, 09/29/20 1... Start Date: 01/28/21 Stop Date: 05/28/21 Status: Ordered escitalopram 10 mg oral tablet 1 tablet = 10 mg, By Mouth, Daily, # 30 tablet, 11 Refills, Maintenance, 04/16/22 16:59:00 EST, Tablet, [facility] #[id number], Partial fill upon patient request if the [...] Gm, 5 Refills, Maintenance, 07/19/19 15:19:00 EDT, [place], [facility] #[id number], 2 sprays Nares, Both Daily in AM,x30 [...] Replace Required Details, Route to Pharmacy Electronically, [facility] #[id number], 162.56, cm,... Start Date: 11/27/21 Status: Ordered [...] Replace Required Details, Route to Pharmacy Electronically, [facility] .. Start Date: 04/16/22 Status: Ordered Glucose [...] # 1 each, Maintenance[facility] pressure monitor neededto monitor blood pressure DX: hypertension, 07/11/18 17:28:42 EDT, Compound Start Date: 07/11/18 Status: Ordered humidifier humidifier, See Instructions, # 1 each, Refills 0, Tot. Refills 0, Maintenance, use as directed forchronic sinusitis J32, 04/09/17 14:21:37 EST, [facility] Start Date: 04/09/17 Status: Ordered losartan 100 mg oral tablet 1 tablet, By Mouth, Daily, # 30 tablet, 5 Refills, [facility] #[id number], 162, cm, 10/09/21 16:19:00 EDT, Height, 86.3, kg, 09/29/20 15:30:00 EDT, Dry Weight Start Date: 10/20/21 Status: Ordered meclizine 25 mg oral tablet 1 tablet = 25 mg, By Mouth, 2 times a day, # 30 tablet, 1 Refills, Maintenance, 07/10/21 17:25:00 EDT, Tablet, [facility] #[id number], 162, cm, 06/19/21 15:40:00 EDT, Height, 86.3, kg, 09/29/20 15:30:00 EDT, Dry Weight Start Date: 07/10/21 Status: Ordered multivitamin with iron Multiple Vitamins with Iron oral tablet 1 tablet, By Mouth, Daily, # 30 tablet, 11 Refills, Maintenance, 04/17/22 7:51:00 EST, Tablet, [facility] #[id number], 1 tablet By Mouth Daily, 162.56, cm, 04/16/22 16:00:00 EST, Height, 87.6, kg, 10/24/21 8:00:00 EDT, Dry Weight Start Date: 04/17/22 Status: Ordered Narcan 4 mg/0.1 mL nasal spray = 4 mg, Inhalation, Once, # 2 each, 1 Refills, Soft Stop, 10/29/20 12:23:00 EDT, [facility] #[id number], Partial fill upon patient request if the prescription is for a schedule II opioid drug., 162, cm, 09/29/20 15:30:00 EDT, Height, 86.3, kg, 08... Start Date: 10/29/20 Status: Ordered ondansetron 4 mg oral tablet 1 tablet = 4 mg, By Mouth, Daily, PRN Nausea & Vomiting, # 10 tablet, 3 Refills, Maintenance, 04/16/22 17:07:00 EST, [facility] #[id number], 162.56, cm, 04/16/22 16:00:00 EST, Height, 87.6, [...] each, 0 Refills, Maintenance, 06/04/20 16:46:00 EDT, [facility] #[id number], OK to sub for any gallon prep, used as directed, 162.56, cm, 05/23/20 14:31:00 EDT, Height, 77, kg, 03/21/20 15:04:00 EST, Dry We... Start Date: 06/04/20 Status: Ordered Senna 8.6 mg oral tablet 1-3 tablet, By Mouth, Daily, for constipation, # 90 tablet, Refills 5, Tot. Refills 5, Maintenance,03/26/20 15:25:00 EST, Route to Pharmacy Electronically, [facility] #[id number] Tablet, 162.56, cm, 03/21/20 15:01:00 EST, Height, [...] tablet, 5 Refills, Maintenance, 04/17/22 7:53:00 EST, [facility] #[id number], 162.56, cm, 04/16/22 16:00:00 EST, Height, 87.6, kg, 10/24/21 8:00:00 EDT, Dry Weight Start Date: 04/17/22 Status: Ordered Suboxone 8 mg-2 mg Sublingual Film 2.5 film, Sublingual, Daily, dissolve under the tongue increase in dose Mariettanyla [id number] coveringfor Dino due on/after 08/22/2021, # 35 film, 0 Refills, Maintenance, 08/22/21 9:27:00 EDT, Film,[facility], 2.5 film Subli... Start Date: 08/22/21 Stop Date: 09/05/21 Status: Ordered Suboxone 8 mg-2 mg Sublingual Film 2 film, Sublingual, Daily, dissolve under the tongue may fill less due 05/27/2022, # 14 film, 0 Refills, Maintenance, 05/28/22 8:17:00 EDT, Film, [facility], 2 film Sublingual Daily,x7 days,Instr:dissolve under the tongue; june fi... Start Date: 05/28/22 Stop Date: 06/04/22 Status: Ordered SUMAtriptan 25 mg oral tablet 1 tablet = 25 mg, By Mouth, Daily, PRN as needed for migraine headache, may repeat dose after 2 hours up to a maximum of 2, # 6 tablet, 1 Refills, Maintenance, 03/02/20 19:47:00 EST, Tablet, [facility] #[id number], 162.56, cm, 01/04/20 9:40:00 ES... 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 3death of sister, caring for mother w/ dementia 4repeat screening colonoscopy in 2020 Social History Social History Type Response Smoking Status Former smoker, quit more than 30 days ago entered on: 12/05/21 Sex Patient Care team information Care Team Personnel Name: Kahlil Sun MD Position: [facility] Primary Care Physician Member Role: PCP Address: Address: [address] [place] [address] Name: Sharri Prince Position: [facility] PCO Associate Professional Member Role: Lifetime Consulting Provider Care Team Related Persons Name: SHANITA MENDOZA Address: home [address] [place] [address] Name: SHANITA MENDOZA Address: home [address] Name: ULICES PEARSON Name: ULICES ESPARZA Address: [place] [address] Name: LALA LI
--- OUTSIDE RECORDS SUMMARY | 2022-12-13 21:35 | XMS_ITS | Continuity of Care Document ---
Author Name Unknown Organization [facility] Address [address] [place] [address]- Care Team Providers Care Clinical Nurse Specialist Name Role Phone Kahlil Sun MD Primary Care Physician [phone] Encounter [facility] Date(s): 01/09/22 - 02/08/22 [facility] [address]- [place] Allergies, Adverse Reactions, Alerts Substance Reaction [...] events reported or observed. 2Result Comment: #2, [facility] 3Result Comment: [facility] 4Result Comment: pharmacy 5Location History: [facility] 6Admin Note: vis 08/31/11 7Admin Note: ADMIN.BY RN 8Result Comment: [facility] 9Admin Note: Admin. by RN 10Admin Note: Admin. by RN 11Admin Note: Admin. 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 Start Date: 12/05/21 Status: Ordered acyclovir 400 mg oral tablet 1 tablet = 400 mg, By Mouth, 2 times a day, # 10 tablet, 5 Refills, Maintenance, 01/08/21 18:41:00 EST, [facility] #[id number], 162, cm, 12/17/20 23:19:00 EDT, Height, 86.3, kg, 09/29/20 15:30:00 EDT, Dry Weight Start Date: 01/08/21 Stop Date: 02/07/21 Status: Ordered Albuterol (Eqv-ProAir HFA) 90 mcg/inh inhalation aerosol 2 puffs, Inhalation, Every 4 hours, PRN NEEDED FOR WHEEZING/SHORTNESS OF BREATH, USE WITH SPACERCHAMBER, # 8.5 Gm, 5 Refills, [facility] #[id number], 16, INHALE 2 PUFFS INTO LUNGS EVERY 4 HOURS NEEDED FOR WHEEZING/SHORTNESS OF BREATH. USE... Start Date: 11/13/20 Status: Ordered albuterol 0.083% inhalation solution 3 mL = 2.5 mg, Inhalation, Every 6 hours, PRN Wheezing/Shortness of Breath, # 60 each, 0 Refills, Maintenance, 06/07/20 12:51:00 EDT, Solution, [facility] #52324, 162.56, cm, 05/23/20 14:31:00 EDT, Height, 77, [...] 01/04/22 19:11:00 EST, Route to Pharmacy Electronically, [facility] #[id number], 162.56, cm, 110... Start Date: 01/04/22 Status: Ordered Biktarvy oral tablet 1 tablet, By Mouth, Daily, # 90 tablet, 3 Refills, Maintenance, 06/13/21 22:19:00 EDT, [facility] #72515, 1 tablet By Mouth Daily, 162, cm, [...] 1 Refills, Maintenance, 07/10/21 18:35:00 EDT, Tablet, [facility] #73972, Partial fill upon patient request if the prescription is for a schedule II opioid drug., 162, cm, 06/19/21 15:40:00 EDT... Start Date: 07/10/21 Status: Ordered cloNIDine 0.1 mg oral tablet 1, tablet, By Mouth, 3 times a day, PRN, # 270 tablet, Refills 0, Maintenance, NEEDED FOR ANXIETY, 01/01/22 10:42:00 EDT, Route to Pharmacy Electronically, [facility] #66352, 162.56, cm,12/05/21 14:12:00 EDT, Height, 87.6, kg, 10/24/21 8... Start Date: 01/01/22 Status: Ordered Colace Clear 50 mg oral capsule 1 capsule = 50 mg, By Mouth, 2 times a day, PRN as needed for constipation, # 60 capsule, 0 Refills, Maintenance, 12/05/21 15:09:00 EDT, [facility] #02255, Partial fill upon patient requestif the prescription [...] 11 Refills, Maintenance, 07/31/21 17:50:00 EDT, Tablet, [facility] #00692, Partial fill upon patient request if the [...] Gm, 5 Refills, Maintenance, 07/19/19 15:19:00 EDT, [place], [facility] #55493, 2 sprays Nares, Both Daily in AM,x30 [...] Replace Required Details, Route to Pharmacy Electronically, [facility] #[id number], 162.56, cm,... Start Date: 11/27/21 Status: Ordered [...] 1 each, Maintenance, covering for [facility] Blood pressure monitor neededto monitor blood pressure DX: hypertension, 07/11/18 17:28:42 EDT, Compound Start Date: 07/11/18 Status: Ordered humidifier humidifier, See Instructions, # 1 each, Refills 0, Tot. Refills 0, Maintenance, use as directed forchronic sinusitis J32, 04/09/17 14:21:37 EST, Compound Start Date: 04/09/17 Status: Ordered losartan 100 mg oral tablet 1 tablet, By Mouth, Daily, # 30 tablet, 5 Refills, [facility] #43043, 162, cm, 10/09/21 16:19:00 EDT, Height, 86.3, kg, 09/29/20 15:30:00 EDT, Dry Weight Start Date: 10/20/21 Status: Ordered meclizine 25 mg oral tablet 1 tablet = 25 mg, By Mouth, 2 times a day, # 30 tablet, 1 Refills, Maintenance, 07/10/21 17:25:00 EDT, Tablet, [facility] #13950, 162, cm, 06/19/21 15:40:00 EDT, Height, 86.3, kg, 09/29/20 15:30:00 EDT, Dry Weight Start Date: 07/10/21 Status: Ordered multivitamin with iron Multiple Vitamins with Iron oral tablet 1 tablet, By Mouth, Daily, # 30 tablet, 11 Refills, Maintenance, 09/06/21 19:08:00 EDT, Tablet, [facility] #58248, 1 tablet By Mouth Daily, 162, cm, 07/31/21 16:00:00 EDT, Height, 86.3, kg,09/29/20 15:30:00 EDT, Dry Weight Start Date: 09/06/21 Status: Ordered Narcan 4 mg/0.1 mL nasal spray = 4 mg, Inhalation, Once, # 2 each, 1 Refills, Soft Stop, 10/29/20 12:23:00 EDT, [facility] #29832, Partial fill upon patient request if the prescription is for a schedule II opioid drug., 162, cm, 09/29/20 15:30:00 EDT, Height, 86.3, kg, 08... Start Date: 10/29/20 Status: Ordered ondansetron 4 mg oral tablet 1 tablet = 4 mg, By Mouth, Daily, PRN Nausea & Vomiting, # 10 tablet, 3 Refills, Maintenance, 10/08/21 22:17:00 EDT, [facility] #52256, 162, cm, 10/09/21 16:19:00 EDT, Height, 86.3, [...] each, 0 Refills, Maintenance, 06/04/20 16:46:00 EDT, [facility] #76893, OK to sub for any gallon prep, used as directed, 162.56, cm, 05/23/20 14:31:00 EDT, Height, 77, kg, 03/21/20 15:04:00 EST, Dry We... Start Date: 06/04/20 Status: Ordered Senna 8.6 mg oral tablet 1-3 tablet, By Mouth, Daily, for constipation, # 90 tablet, Refills 5, Tot. Refills 5, Maintenance,03/26/20 15:25:00 EST, Route to Pharmacy Electronically, [facility] #64233 Tablet, 162.56, cm, 03/21/20 15:01:00 EST, Height, [...] tablet, 2 Refills, Maintenance, 12/23/21 16:29:00 EDT, [facility] #74101, 162.56, cm, 12/05/21 14:12:00 EDT, Height, 87.6, kg, 10/24/21 8:00:00 EDT, Dry Weight Start Date: 12/23/21 Status: Ordered Suboxone 8 mg-2 mg Sublingual Film 2.5 film, Sublingual, Daily, dissolve under the tongue may fill less due 01/30/2022 [place] [id number] [address] Sun [id number], # 70 film, 0 Refills, Maintenance, 01/30/22 11:01:00 EST, Film, [facility], 2.5 film Subling... Start Date: 01/30/22 Stop Date: 02/27/22 Status: Ordered Suboxone 8 mg-2 mg Sublingual Film 2.5 film, Sublingual, Daily, dissolve under the tongue increase in dose Iveth [id number] coveringfor Dino due on/after 08/22/2021, # 35 film, 0 Refills, Maintenance, 08/22/21 9:27:00 EDT, Film,[facility], 2.5 film Subli... Start Date: 08/22/21 Stop Date: 09/05/21 Status: Ordered SUMAtriptan 25 mg oral tablet 1 tablet = 25 mg, By Mouth, Daily, PRN as needed for migraine headache, may repeat dose after 2 hours up to a maximum of 2, # 6 tablet, 1 Refills, Maintenance, 03/02/20 19:47:00 EST, Tablet, [facility] #79848, 162.56, cm, 01/04/20 9:40:00 ES... Start Date: 03/02/20 Status: Ordered zolpidem 5 mg oral tablet 1 tablet = 5 mg, By Mouth, Daily at bedtime, PRN as needed for sleep, covering for Dr. 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 2genotype 02/02: [id number] is only mutation detected 3death of sister, caring for mother w/ dementia 4repeat screening colonoscopy in 2020 Social History Social History Type Response Smoking Status Former smoker, quit more than 30 days ago entered on: 12/05/21 Sex Patient Care team information Care Team Personnel Name: Kahlil Sun MD Position: [facility] Primary Care Physician Member Role: PCP Address: Address: [address] [place] [address] Name: Sharri Prince Position: [facility] PCO Associate Professional Member Role: Lifetime Consulting Provider Care Team Related Persons Name: SHANITA MENDOZA Address: home [address] [place] [address] Name: SHANITA MENDOZA BRITTNY Address: home [address] Name: ULICES PEARSON Name: ULICES ESPARZA Address: [place] [address] Name: LALA LI
--- OUTSIDE RECORDS SUMMARY | 2022-12-13 21:35 | XMS_ITS | Continuity of Care Document ---
Author Name Unknown Organization [facility] Address [address] [place] [address]- Care Team Providers Care Retail Wireless Sales Representative Name Role Phone Dino PEREZ, Kahlil Barrera Primary Care Physician [facility]counter [facility] Date(s): 02/13/20 - 03/14/20 [facility] [place] [address] [place] [phone]- Allergies, Adverse Reactions, Alerts Substance Reaction Severity [...] tetanus-diphtheria toxoids (Td) 03/10/01 Given 1Result Comment: [facility] 2Result Comment: pharmacy 3Location History: [facility] [...] tablet, 5 Refills, Maintenance, 01/26/20 16:20:00 EST, [facility], 162.56, cm, 10/09/19 10:36:00 EDT, Height, 72.3, kg, 09/26/18 16:01:00 EDT, Dry Weight Start Date: 01/26/20 Stop Date: 02/25/20 Status: Ordered albuterol 0.083% inhalation solution 3 mL = 2.5 mg, Inhalation, Every 6 hours, PRN Wheezing/Shortness of Breath, # 60 each, 0 Refills, Maintenance, 06/07/19 14:59:00 EDT, Solution, [facility] #65351, 162.56, cm, 05/03/19 16:30:00 EST, Height, 72.3, kg, 09/26/18 16:01:00 EDT, . Start Date: 06/07/19 Status: Ordered Biktarvy oral tablet 1 tablet, By Mouth, Daily, # 90 tablet, 3 Refills, Maintenance, 03/02/20 19:50:00 EST, [facility] #[id number], 1 tablet By Mouth Daily, 162.56, cm, 01/04/20 9:40:00 EST, Height, 72.3, kg, 09/26/18 16:01:00 EDT, Dry Weight Start Date: 03/02/20 Status: Ordered Blood Pressure Meter Blood Pressure Meter, See Instructions, # 1 each, Refills 0, Tot. Refills 0, Maintenance, Use for, 07/11/18 16:11:47 EDT, Compound Start Date: 07/11/18 Status: Ordered buprenorphine-naloxone 2 mg-0.5 mg sublingual film 1 film, Sublingual, Daily, [place] [id number], # 14 film, 0 Refills, Maintenance, 02/08/20 16:47:00 EST, [facility] #[id number], Partial fill on request., 1 film Sublingual Daily,Instr:[place] [id number], 162.56, cm, 01/04/20 9:40:00 EST, Height, 7... Start Date: 02/08/20 Status: Ordered buprenorphine-naloxone 2 mg-0.5 mg sublingual film 0.25 each, Sublingual, Daily, [place]ino [id number], # 8 film, 0 Refills, Maintenance, 12/15/19 19:00:00 EDT, [facility] #79836, Partial fill on request., 0.25 each Sublingual Daily,Instr:Dino [id number], 162.56, cm, 10/09/19 10:36:00 EDT, Hei... Start Date: 12/15/19 Status: Ordered cetirizine 10 mg oral tablet 1 tablet = 10 mg, By Mouth, Daily, For allergies., # 30 tablet, 2 Refills, Maintenance, 06/29/19 16:02:00 EDT, Tablet, [facility] #31512, 162.56, cm, 05/03/19 16:30:00 EST, Height, 72.3, kg, 09/26/18 16:01:00 EDT, Dry Weight Start Date: 06/29/19 Status: Ordered cloNIDine 0.1 mg oral tablet 0.1 mg, 1, tablet, By Mouth, 3 times a day, as needed for anxiety, # 25 tablet, Refills 0, Tot. Refills 0, Maintenance, 10/10/19 21:36:00 EDT, Route to Pharmacy Electronically, [facility] #07438, 162.56, cm, 10/09/19 10:36:00 EDT, Height, 72... [...] Gm, 5 Refills, Maintenance, 07/19/19 15:19:00 EDT, [place], [facility] #76074, 2 sprays Nares, Both Daily in AM,x30 days, 162.56, cm, 05/03/19 16:30:00 EST, Height, 72.3, kg, 09/26/18 16:01:00 EDT, Dry... Start Date: 07/19/19 Stop Date: 01/15/20 Status: Ordered Flovent HFA 44 mcg/inh inhalation aerosol 1 puffs, Inhalation, 2 times a day, # 1 each, 5 Refills, Maintenance, 06/29/19 16:26:00 EDT, Aerosol, [facility] #93250, 162.56, cm, 05/03/19 16:30:00 EST, Height, 72.3, [...] Instructions, # 1 each, Maintenance, covering for [facility] Blood pressure monitor neededto monitor [...] 3 Refills, Maintenance, 03/02/20 19:48:00 EST, Tablet, [facility] #79644, 30 day supply preferred for present, 162.56, [...] 05/12/18 14:45:33 EDT, Route to Pharmacy Electronically, [id number], [facility] Start Date: 05/12/18 Status: Ordered LORazepam 0.5 mg oral tablet 0.5 tablet = 0.25 mg, By Mouth, 2 times a day, PRN as needed for anxiety, # 20 tablet, 1 Refills, Maintenance, 05/16/19 23:11:00 EDT, Tablet, [facility] #98133, 162.56, cm, 05/03/19 16:30:00 EST, Height, 72.3, kg, 09/26/18 16:01:00 EDT, Dry... Start Date: 05/16/19 Status: Ordered losartan 100 mg oral tablet 1 tablet = 100 mg, By Mouth, Daily, # 30 tablet, 11 Refills, Maintenance, 06/29/19 15:59:00 EDT, Tablet, [facility] #35748, 162.56, cm, 05/03/19 16:30:00 EST, Height, 72.3, kg, 09/26/18 16:01:00 EDT, Dry Weight Start Date: 06/29/19 Status: Ordered meclizine 25 mg oral tablet 1 tablet = 25 mg, By Mouth, 2 times a day, # 30 tablet, 1 Refills, Maintenance, 03/30/19 15:49:00 EST, Tablet, [facility] #19175, 162.56, cm, 03/08/19 14:34:00 EST, Height, 72.3, [...] 15:00:00 EDT, Aerosol, Route to Pharmacy Electronically, [id number], [facility] #[id number], 1... Start Date: 06/07/19 Status: Ordered Senna 8.6 mg oral tablet 1-3 tablet, By Mouth, Daily, for constipation, # 90 tablet, Refills 5, Tot. Refills 5, Maintenance,02/17/18 15:12:45 EST, Route to Pharmacy Electronically, [id number], [facility] Tablet Start Date: 02/17/18 Status: Ordered Spacer for inhalers Spacer for inhalers, See Instructions, # 1 each, Refills 0, Tot. Refills 0, Maintenance, Use with inhalers as directed. Syriac., 06/07/19 15:07:00 EDT, Compound, 162.56, cm, 05/03/19 16:30:00 EST, Height, 72.3, kg, 09/26/18 16:01:00 EDT, Dry Weight Start Date: 06/07/19 Status: Ordered SUMAtriptan 25 mg oral tablet 1 tablet = 25 mg, By Mouth, Daily, PRN as needed for migraine headache, may repeat dose after 2 hours up to a maximum of 2, # 6 tablet, 1 Refills, Maintenance, 03/02/20 19:47:00 EST, Tablet, [facility] #21762, 162.56, cm, 01/04/20 9:40:00 ES... Start Date: 03/02/20 Status: Ordered Zofran 4 mg oral tablet 1 tablet = 4 mg, By Mouth, 2 times a day, PRN Nausea & Vomiting, # 10 tablet, 0 Refills, Maintenance, 03/02/20 19:47:00 EST, Tablet, [facility] #53484, 162.56, cm, 01/04/20 9:40:00 EST,Height, 72.3, kg, [...] 2016 Active Migraine(Confirmed) Active Opioid dependence(Confirmed) Active *[id number] Care Partn renee Saavedra(Confirmed) Active Health care [...] tolerance, and QD need over. 2genotype 02/02: [id number] is only mutation detected 3death of sister, caring for mother w/ dementia 4repeat screening colonoscopy in 2021 Social History Social History Type Response Smoking Status Former smoker, quit more than 30 days ago entered on: 05/24/18 Sex
--- OUTSIDE RECORDS SUMMARY | 2022-12-13 21:35 | XMS_ITS | Continuity of Care Document ---
Author Name Unknown Organization [facility] Address [address] [place] [address]- Care Team Providers Care Manager Contract Name Role Phone Kahlil Sun MD Primary Care Physician Encounter [facility] Date(s): 08/28/20 - 09/27/20 [facility] [address] [place] [address]- Attending Physician: Kahlil Sun MD Admitting Physician: [...] toxoids (Td) 03/10/01 Given 1Result Comment: #2, [facility] 2Result Comment: [facility] 3Result Comment: [facility] 4Result Comment: pharmacy 5Location History: [facility] 6Admin Note: vis 08/31/11 7Admin Note: ADMIN.BY RN 8Admin Note: Admin. by RN 9Admin Note: Admin. by RN 10Admin Note: Admin. 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 Start Date: 09/12/20 Status: Ordered acyclovir 400 mg oral tablet 1 tablet = 400 mg, By Mouth, 2 times a day, # 10 tablet, 5 Refills, Maintenance, 01/26/20 16:20:00 EST, [facility], 162.56, cm, 10/09/19 10:36:00 EDT, Height, 72.3, kg, 09/26/18 16:01:00 EDT, Dry Weight Start Date: 01/26/20 Stop Date: 02/25/20 Status: Ordered albuterol 0.083% inhalation solution 3 mL = 2.5 mg, Inhalation, Every 6 hours, PRN Wheezing/Shortness of Breath, # 60 each, 0 Refills, Maintenance, 06/07/20 12:51:00 EDT, Solution, [facility] #72750, 162.56, cm, 05/23/20 14:31:00 EDT, Height, 77, [...] tablet, 3 Refills, Maintenance, 03/02/20 19:50:00 EST, [facility] #11291, 1 tablet By Mouth Daily, 162.56, cm, 01/04/20 9:40:00 EST, Height, 72.3, kg, 09/26/18 16:01:00 EDT, Dry Weight Start Date: 03/02/20 Status: Ordered Blood Pressure Meter Blood Pressure Meter, See Instructions, # 1 each, Refills 0, Tot. Refills 0, Maintenance, Use for, 07/11/18 16:11:47 EDT, Compound Start Date: 07/11/18 Status: Ordered buprenorphine-naloxone 2 mg-0.5 mg sublingual film 0.25 each, Sublingual, Daily, [place] [id number], # 8 film, 0 Refills, Maintenance, 12/15/19 19:00:00 EDT, [facility] #13610, Partial fill on request., 0.25 each Sublingual Daily,Instr:Dino [id number], 162.56, cm, 10/09/19 10:36:00 EDT, Hei... Start Date: 12/15/19 Status: Ordered buprenorphine-naloxone 8 mg-2 mg sublingual film 1 film, Sublingual, Daily, dissolve under the tongue, # 7 film, 0 Refills, Maintenance, 09/12/20 15:38:00 EDT, Film, [facility] #48212, Partial fill upon patient request if the prescriptionis for a schedule II opioid drug., 1 film Sublingua... Start Date: 09/12/20 Stop Date: 09/19/20 Status: Ordered cetirizine 10 mg oral tablet 1 tablet = 10 mg, By Mouth, Daily, For allergies., # 30 tablet, 2 Refills, Maintenance, 06/29/19 16:02:00 EDT, Tablet, [facility] #09900, 162.56, cm, 05/03/19 16:30:00 EST, Height, 72.3, kg, 09/26/18 16:01:00 EDT, Dry Weight Start Date: 06/29/19 Status: Ordered cloNIDine 0.1 mg oral tablet 0.1 mg, 1, tablet, By Mouth, 3 times a day, as needed for anxiety, # 25 tablet, Refills 0, Tot. Refills 0, Maintenance, 10/10/19 21:36:00 EDT, Route to Pharmacy Electronically, [facility] #69241, 162.56, cm, 10/09/19 10:36:00 EDT, Height, 72... [...] Gm, 5 Refills, Maintenance, 07/19/19 15:19:00 EDT, [place], [facility] #90549, 2 sprays Nares, Both Daily in AM,x30 days, 162.56, cm, 05/03/19 16:30:00 EST, Height, 72.3, kg, 09/26/18 16:01:00 EDT, Dry... Start Date: 07/19/19 Stop Date: 01/15/20 Status: Ordered Flovent HFA 44 mcg/inh inhalation aerosol 1 puffs, Inhalation, 2 times a day, # 1 each, 5 Refills, Maintenance, 06/07/20 12:52:00 EDT, Aerosol, [facility] #52411, 162.56, cm, 05/23/20 14:31:00 EDT, Height, 77, [...] 3 Refills, Maintenance, 03/02/20 19:48:00 EST, Tablet, [facility] #78552, 30 day supply preferred for present, 162.56, [...] 05/12/18 14:45:33 EDT, Route to Pharmacy Electronically, [id number], [facility] Start Date: 05/12/18 Status: Ordered LORazepam 0.5 mg oral tablet 0.5 tablet = 0.25 mg, By Mouth, 2 times a day, PRN as needed for anxiety, # 20 tablet, 1 Refills, Maintenance, 05/16/19 23:11:00 EDT, Tablet, [facility] #12043, 162.56, cm, 05/03/19 16:30:00 EST, Height, 72.3, kg, 09/26/18 16:01:00 EDT, Dry... Start Date: 05/16/19 Status: Ordered losartan 100 mg oral tablet 1 tablet, By Mouth, Daily, # 30 tablet, 5 Refills, Maintenance, 09/24/20 16:00:00 EDT, [facility] #13674, 162, cm, 09/19/20 15:59:00 EDT, Height, 82.1, kg, 06/08/20 17:25:00 EDT, Dry Weight Start Date: 09/24/20 Status: Ordered meclizine 25 mg oral tablet 1 tablet = 25 mg, By Mouth, 2 times a day, # 30 tablet, 1 Refills, Maintenance, 03/30/19 15:49:00 EST, Tablet, [facility] #09874, 162.56, cm, 03/08/19 14:34:00 EST, Height, 72.3, [...] each, 0 Refills, Maintenance, 06/04/20 16:46:00 EDT, [facility] #97259, OK to sub for any gallon prep, [...] 12:51:00 EDT, Aerosol, Route to Pharmacy Electronically, [id number], [facility] #51626, 1... Start Date: 06/07/20 Status: Ordered Senna 8.6 mg oral tablet 1-3 tablet, By Mouth, Daily, for constipation, # 90 tablet, Refills 5, Tot. Refills 5, Maintenance,03/26/20 15:25:00 EST, Route to Pharmacy Electronically, [facility] #67906 Tablet, 162.56, cm, 03/21/20 15:01:00 EST, Height, 77, kg, ... Start Date: 03/26/20 Status: Ordered Spacer for inhalers Spacer for inhalers, See Instructions, # 1 each, Refills 0, Tot. Refills 0, Maintenance, Use with inhalers as directed. Bulgarian., 06/07/19 15:07:00 EDT, Compound, 162.56, cm, 05/03/19 16:30:00 EST, Height, 72.3, kg, 09/26/18 16:01:00 EDT, Dry Weight Start Date: 06/07/19 Status: Ordered Sublocade 100 mg/0.5 mL subcutaneous solution, extended release = 100 mg, Subcutaneous Infusion, Every 28 days, [facility], # 1 each, 0 Refills, Maintenance, [...] 1 Refills, Maintenance, 03/02/20 19:47:00 EST, Tablet, [facility] #39272, 162.56, cm, 01/04/20 9:40:00 ES... Start Date: 03/02/20 Status: Ordered Zofran 4 mg oral tablet 1 tablet = 4 mg, By Mouth, 2 times a day, PRN Nausea & Vomiting, # 10 tablet, 0 Refills, Maintenance, 09/19/20 18:37:00 EDT, Tablet, [facility] #62467, 162, cm, 09/19/20 15:59:00 EDT, Height, 82.1, [...] 2016 Active Migraine(Confirmed) Active Opioid dependence(Confirmed) Active *[id number] Care Partn April Saavedra(Confirmed) Active Health care [...] tolerance, and QD need over. 2genotype 02/02: [id number] is only mutation detected 3death of sister, caring for mother w/ dementia 4repeat screening colonoscopy in 2020 Social History Social History Type Response Smoking Status Former smoker, quit more than 30 days ago entered on: 05/24/18 Sex
--- OUTSIDE RECORDS SUMMARY | 2022-12-13 21:35 | XMS_ITS | Continuity of Care Document ---
Author Name Unknown Organization [facility] Address [address] [place] [address]- Care Team Providers Care Ent Consultant Name Role Phone Kahlil Sun MD Primary Care Physician Encounter [facility] Date(s): 10/04/22 - 11/03/22 [facility]/[address] [address]- [place] Allergies, Adverse Reactions, Alerts Substance Reaction [...] reported or observed. 2Result Comment: #2, [facility] 3Result Comment: [facility] 4Result Comment: pharmacy 5Location [...] tablet, 5 Refills, Maintenance, 01/08/21 18:41:00 EST, [facility] #[id number], 162, cm, 12/17/20 23:19:00 EDT, Height, 86.3, kg, 09/29/20 15:30:00 EDT, Dry Weight Start Date: 01/08/21 Stop Date: 02/07/21 Status: Ordered Albuterol (Eqv-ProAir HFA) 90 mcg/inh inhalation aerosol 2 puffs, Inhalation, Every 4 hours, PRN NEEDED FOR WHEEZING/SHORTNESS OF BREATH, USE WITH SPACERCHAMBER, # 8.5 Gm, 5 Refills, [facility] #[id number], 16, INHALE 2 PUFFS INTO LUNGS EVERY 4 HOURS NEEDED FOR WHEEZING/SHORTNESS OF BREATH. USE... Start Date: 11/13/20 Status: Ordered albuterol 0.083% inhalation solution 3 mL = 2.5 mg, Inhalation, Every 6 hours, PRN Wheezing/Shortness of Breath, # 60 each, 0 Refills, Maintenance, 06/07/20 12:51:00 EDT, Solution, [facility] #[id number], 162.56, cm, 05/23/20 14:31:00 EDT, Height, 77, [...] 2 Refills, Maintenance, 08/30/22 11:09:00 EDT, Gel, [facility] #[id number], 1 applic... Start Date: 08/30/22 Status: Ordered benzoyl peroxide 2.5% topical gel 1 application, Topically, 2 times a day, keep away from eyes and mucous membranes. clean affected area before application. Start daily and increase to twice a day if tolerated., # 60 Gm, 3 Refills, Maintenance, 09/08/22 22:51:00 EDT, [facility]... Start Date: 09/08/22 Status: Ordered Biktarvy oral tablet 1 tablet, By Mouth, Daily, # 30 tablet, 12 Refills, Maintenance, 04/17/22 7:54:00 EST, [facility] #[id number], 1 tablet By Mouth Daily, 162.56, cm, 04/16/22 16:00:00 EST, Height, 87.6, kg, 10/24/21 8:00:00 EDT, Dry Weight Start Date: 04/17/22 Status: Ordered Biktarvy oral tablet See Instructions, TAKE 1 TABLET BY MOUTH DAILY, # 90 tablet, 0 Refills, Maintenance, 07/15/22 13:50:00 EDT, [facility] #[id number], 90, TAKE 1 TABLET BY MOUTH DAILY, [...] 1 Refills, Maintenance, 07/10/21 18:35:00 EDT, Tablet, [facility] #[id number], Partial fill upon patient request if the [...] 08/12/22 15:06:00 EDT, Route to Pharmacy Electronically, [facility] #[id number], 162.56, cm, 07/30/22 10:55:00 EDT, Height, 79.... Start Date: 08/12/22 Status: Ordered Colace Clear 50 mg oral capsule 1 capsule = 50 mg, By Mouth, 2 times a day, PRN as needed for constipation, # 60 capsule, 0 Refills, Maintenance, 12/05/21 15:09:00 EDT, [facility] #[id number], Partial fill upon patient requestif the prescription is for a schedule II opioid nhi... Start Date: 12/05/21 Status: Ordered diclofenac 1% topical gel = 2 Gm, Topically, 4 times a day, PRN for pain, not to exceed: 10 gm/day, # 100 Gm, 1 Refills, Maintenance, 05/29/21 16:52:00 EDT, Gel, [facility], Partial fill upon patient request if the prescription is for a schedule II opioid... Start Date: 05/29/21 Status: Ordered Dulera 200 mcg-5 mcg/inh inhalation aerosol 2 puffs, Inhalation, 2 times a day, # 1 each, 3 Refills, Maintenance, 01/28/21 16:44:00 EST, Aerosol, [facility], STOP FLOVENT, 2 puffs Inhalation 2 times a day,x30 days, 162, cm,01/28/21 16:02:00 EST, Height, 86.3, kg, 09/29/20 1... Start Date: 01/28/21 Stop Date: 05/28/21 Status: Ordered escitalopram 20 mg oral tablet 1 tablet = 20 mg, By Mouth, Daily, # 90 tablet, 0 Refills, Maintenance, 07/30/22 12:03:00 EDT, Tablet, [facility] #[id number], Partial fill upon patient request if the prescription is for a schedule II opioid drug., 162.56, cm, 07/30/22 10:55:00... Start Date: 07/30/22 Status: Ordered ferrous fumarate 324 mg oral tablet 1 tablet = 324 mg, By Mouth, Every other day, # 45 tablet, 0 Refills, Maintenance, 07/31/22 11:19:00 EDT, Tablet, [facility] #[id number], Partial fill upon patient request if the [...] Gm, 5 Refills, Maintenance, 07/19/19 15:19:00 EDT, [place], [facility] #[id number], 2 sprays Nares, Both Daily in AM,x30 [...] 09/24/22 17:20:00 EDT, Route to Pharmacy Electronically, [facility] #[id number], 162.56, cm, 09/17/22 12:56:00 EDT, Heigh... Start [...] 1 each, Maintenance, covering for [facility] Blood pressure monitor neededto monitor blood [...] 2 Refills, Maintenance, 07/30/22 12:17:00 EDT, Syrup, [facility] #[id number], 30 mL By Mouth 4 times a day, 162.56, cm, 07/30/22 10:55:00 EDT,Height, 79.54, kg, 07/30/22 10:55:00 EDT, Dry Weight Start Date: 07/30/22 Status: Ordered losartan 100 mg oral tablet 1 tablet, By Mouth, Daily, # 30 tablet, 5 Refills, [facility] #[id number], 162, cm, 10/09/21 16:19:00 EDT, Height, 86.3, kg, 09/29/20 15:30:00 EDT, Dry Weight Start Date: 10/20/21 Status: Ordered meclizine 25 mg oral tablet 1 tablet = 25 mg, By Mouth, 2 times a day, # 30 tablet, 1 Refills, Maintenance, 07/10/21 17:25:00 EDT, Tablet, [facility] #[id number], 162, cm, 06/19/21 15:40:00 EDT, Height, 86.3, kg, 09/29/20 15:30:00 EDT, Dry Weight Start Date: 07/10/21 Status: Ordered multivitamin with iron Multiple Vitamins with Iron oral tablet 1 tablet, By Mouth, Daily, # 30 tablet, 11 Refills, Maintenance, 04/17/22 7:51:00 EST, Tablet, [facility] #[id number], 1 tablet By Mouth Daily, 162.56, cm, 04/16/22 16:00:00 EST, Height, 87.6, kg, 10/24/21 8:00:00 EDT, Dry Weight Start Date: 04/17/22 Status: Ordered Narcan 4 mg/0.1 mL nasal spray = 4 mg, Inhalation, Once, # 2 each, 1 Refills, Soft Stop, 10/29/20 12:23:00 EDT, [facility] #[id number], Partial fill upon patient request if the prescription is for a schedule II opioid drug., 162, cm, 09/29/20 15:30:00 EDT, Height, 86.3, kg, 08... Start Date: 10/29/20 Status: Ordered ondansetron 4 mg oral tablet 1 tablet = 4 mg, By Mouth, Daily, PRN Nausea & Vomiting, # 10 tablet, 3 Refills, Maintenance, 06/25/22 17:28:00 EDT, [facility] #[id number], 162.56, cm, 06/25/22 16:16:00 EDT, Height, 87.6, [...] 2 Refills, Maintenance, 08/21/22 17:50:00 EDT, Tablet, [facility] #[id number], this is correct dose. 200mg Rx just sent by mistake., 162.56, cm, 08/20/22 13:54:00 EDT, Height, 79.54, kg, 06... Start Date: 08/21/22 Status: Ordered Senna 8.6 mg oral tablet 1-3 tablet, By Mouth, Daily, for constipation, # 90 tablet, Refills 5, Tot. Refills 5, Maintenance,03/26/20 15:25:00 EST, Route to Pharmacy Electronically, [facility] #[id number] Tablet, 162.56, cm, 03/21/20 15:01:00 EST, Height, [...] 09/24/22 17:20:00 EDT, Route to Pharmacy Electronically, [facility] #[id number], 162.56, cm, 09/17/22 12:56:00 EDT, Heigh... Start Date: 09/24/22 Status: Ordered Suboxone 8 mg-2 mg Sublingual Film 2 film, Sublingual, Daily, [id number] [place] dissolve under the tongue may fill less due 10/26/2022,# 28 film, 0 Refills, Maintenance, 10/15/22 16:24:00 EDT, Film, [facility], 2 film Sublingual Daily,x14 days,Instr:[id number] Li... Start Date: 10/15/22 Stop Date: 10/29/22 Status: Ordered SUMAtriptan 25 mg oral tablet 1 tablet = 25 mg, By Mouth, Daily, PRN as needed for migraine headache, may repeat dose after 2 hours up to a maximum of 2, # 6 tablet, 1 Refills, Maintenance, 03/02/20 19:47:00 EST, Tablet, [facility] #[id number], 162.56, cm, 01/04/20 9:40:00 ES... 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 2genotype 02/02: [id number] is only mutation detected 3death of sister, caring for mother w/ dementia 4repeat screening colonoscopy in 2020 Social History Social History Type Response Smoking Status Former smoker, quit more than 30 days ago entered on: 12/05/21 Sex Patient Care team information Care Team Personnel Name: Kahlil Sun MD Position: [facility] Physician - Primary Care Member Role: PCP Address: Address: [address] [place] [address] Name: Sharri Prince Position: [facility] PCO Associate Professional Member Role: Lifetime Consulting Provider Care Team Related Persons Name: SHANITA MENDOZA Address: [address] [place] [address] Name: SHANITA MENDOZA Address: home [address] Name: ULICES PEARSON Name: ULICES ESPARZA Address: [place] [address] Name: LALA LI
--- OUTSIDE RECORDS SUMMARY | 2022-12-13 21:36 | XMS_ITS | Continuity of Care Document ---
Author Name Unknown Organization [facility] Address Unknown Care Team Providers Care Government Teacher Name Role Phone Kahlil Sun MD Primary Care Physician Encounter [facility] Date(s): 01/30/21 - 03/01/21 [facility] Allergies, Adverse Reactions, Alerts Substance Reaction [...] Vaccine (oldterm) 12/22/07 Given pneumococcal 23-valent vaccine 7/23/20 Given hepatitis B adult vaccine 08/23/18 Given [...] events reported or observed. 2Result Comment: #2, [facility] 3Result Comment: [facility] 4Result Comment: pharmacy 5Location History: [facility] 6Admin Note: vis 08/31/11 7Admin Note: ADMIN.BY RN 8Result Comment: [facility] 9Admin Note: Admin. by RN 10Admin Note: Admin. by RN 11Admin Note: Admin. by RN 12Admin Note: vis 06/14/16 13Admin Note: dose #6 (3rd in 2nd series) 14Admin Note: dose #5 15Admin Note: #3 16Admin Note: LITO [employer] 17Admin Note: ADMIN BEN, LEGAL RECEPTIONIST 18Admin Note: BY LEXI Agudelo 19Admin Note: [...] 1 Refills, Maintenance, 09/12/20 16:18:00EDT, CR Tablet, [facility] #[id number], Partial fill upon patient request if the prescription is for a schedule II opioid drug., 162, cm, 09/12/20... Start Date: 09/12/20 Status: Ordered acyclovir 400 mg oral tablet 1 tablet = 400 mg, By Mouth, 2 times a day, # 10 tablet, 5 Refills, Maintenance, 01/08/21 18:41:00 EST, [facility] #[id number], 162, cm, 12/17/20 23:19:00 EDT, Height, 86.3, kg, 09/29/20 15:30:00 EDT, Dry Weight Start Date: 01/08/21 Stop Date: 02/07/21 Status: Ordered Albuterol (Eqv-ProAir HFA) 90 mcg/inh inhalation aerosol 2 puffs, Inhalation, Every 4 hours, PRN NEEDED FOR WHEEZING/SHORTNESS OF BREATH, USE WITH SPACERCHAMBER, # 8.5 Gm, 5 Refills, [facility] #[id number], 16, INHALE 2 PUFFS INTO LUNGS EVERY 4 HOURS NEEDED FOR WHEEZING/SHORTNESS OF BREATH. USE... Start Date: 11/13/20 Status: Ordered albuterol 0.083% inhalation solution 3 mL = 2.5 mg, Inhalation, Every 6 hours, PRN Wheezing/Shortness of Breath, # 60 each, 0 Refills, Maintenance, 06/07/20 12:51:00 EDT, Solution, [facility] #[id number], 162.56, cm, 05/23/20 14:31:00 EDT, Height, 77, [...] tablet, 3 Refills, Maintenance, 03/02/20 19:50:00 EST, [facility] #[id number], 1 tablet By Mouth Daily, 162.56, cm, [...] 2 Refills, Maintenance, 06/29/19 16:02:00 EDT, Tablet, [facility] #[id number], 162.56, cm, 05/03/19 16:30:00 EST, Height, 72.3, kg, 09/26/18 16:01:00 EDT, Dry Weight Start Date: 06/29/19 Status: Ordered cloNIDine 0.1 mg oral tablet 0.1 mg, 1, tablet, By Mouth, 3 times a day, as needed for anxiety, # 25 tablet, Refills 0, Tot. Refills 0, Maintenance, 10/10/19 21:36:00 EDT, Route to Pharmacy Electronically, [facility] #[id number], 162.56, cm, 10/09/19 10:36:00 EDT, Height, 72... Start Date: 10/10/19 Status: Ordered Dulera 200 mcg-5 mcg/inh inhalation aerosol 2 puffs, Inhalation, 2 times a day, # 1 each, 3 Refills, Maintenance, 01/28/21 16:44:00 EST, Aerosol, [facility], STOP FLOVENT, 2 puffs Inhalation 2 times [...] Gm, 5 Refills, Maintenance, 07/19/19 15:19:00 EDT, [place], [facility] #[id number], 2 sprays Nares, Both Daily in AM,x30 days, 162.56, cm, 05/03/19 16:30:00 EST, Height, 72.3, kg, 09/26/18 16:01:00 EDT, Dry... Start Date: 07/19/19 Stop Date: 01/15/20 Status: Ordered fluconazole 150 mg oral tablet 1 tablet = 150 mg, By Mouth, Once, # 1 tablet, 1 Refills, Soft Stop, 01/08/21 19:37:00 EST, Tablet,[facility] #[id number], 162, cm, 12/17/20 23:19:00 EDT, Height, 86.3, [...] 01/28/21 16:28:00 EST, Route to Pharmacy Electronically, [facility], STOP HCTZ, 162, cm, 01/28/21 16:02:00 EST, [...] # 1 each, Maintenance, covering for Sharri [place] Blood pressure monitor neededto monitor blood pressure [...] 05/12/18 14:45:33 EDT, Route to Pharmacy Electronically, [id number], [facility] Start Date: 05/12/18 Status: Ordered LORazepam 0.5 mg oral tablet 0.5 tablet = 0.25 mg, By Mouth, 2 times a day, PRN as needed for anxiety, # 20 tablet, 1 Refills, Maintenance, 05/16/19 23:11:00 EDT, Tablet, [facility] #[id number], 162.56, cm, 05/03/19 16:30:00 EST, Height, 72.3, kg, 09/26/18 16:01:00 EDT, Dry... Start Date: 05/16/19 Status: Ordered losartan 100 mg oral tablet 1 tablet, By Mouth, Daily, # 30 tablet, 5 Refills, Maintenance, 09/24/20 16:00:00 EDT, [facility] #[id number], 162, cm, 09/19/20 15:59:00 EDT, Height, 82.1, kg, 06/08/20 17:25:00 EDT, Dry Weight Start Date: 09/24/20 Status: Ordered meclizine 25 mg oral tablet 1 tablet = 25 mg, By Mouth, 2 times a day, # 30 tablet, 1 Refills, Maintenance, 03/30/19 15:49:00 EST, Tablet, [facility] #[id number], 162.56, cm, 03/08/19 14:34:00 EST, Height, 72.3, kg, 09/26/18 16:01:00 EDT, Dry Weight Start Date: 03/30/19 Status: Ordered Narcan 4 mg/0.1 mL nasal spray = 4 mg, Inhalation, Once, # 2 each, 1 Refills, Soft Stop, 10/29/20 12:23:00 EDT, [facility] #[id number], Partial fill upon patient request if the [...] each, 0 Refills, Maintenance, 06/04/20 16:46:00 EDT, [facility] #[id number], OK to sub for any gallon prep, used as directed, 162.56, cm, 05/23/20 14:31:00 EDT, Height, 77, kg, 03/21/20 15:04:00 EST, Dry We... Start Date: 06/04/20 Status: Ordered predniSONE 50 mg oral tablet 1 tablet = 50 mg, By Mouth, Daily, # 7 tablet, 0 Refills, Maintenance, 01/28/21 16:37:00 EST, Tablet, [facility], Partial fill upon patient request if the prescription is for a schedule II opioid drug., 162, cm, 01/28/21 16:02:00 E... Start Date: 01/28/21 Stop Date: 02/04/21 Status: Ordered Senna 8.6 mg oral tablet 1-3 tablet, By Mouth, Daily, for constipation, # 90 tablet, Refills 5, Tot. Refills 5, Maintenance,03/26/20 15:25:00 EST, Route to Pharmacy Electronically, [facility] #[id number] Tablet, 162.56, cm, 03/21/20 15:01:00 EST, Height, [...] 4 Refills, Maintenance, 01/28/21 16:29:00 EST, Tablet, [facility], STOP HCTZ, 162, cm, 01/28/21 16:02:00 EST, [...] under the tongue increase in dose 01/22/2021 [id number], # 60 film, 0 Refills, Maintenance, 01/22/21 13:49:00 EST, [facility] #[id number], Partial fill upon patient request if the prescription is for a... Start Date: 01/22/21 Status: Ordered SUMAtriptan 25 mg oral tablet 1 tablet = 25 mg, By Mouth, Daily, PRN as needed for migraine headache, may repeat dose after 2 hours up to a maximum of 2, # 6 tablet, 1 Refills, Maintenance, 03/02/20 19:47:00 EST, Tablet, [facility] #[id number], 162.56, cm, 01/04/20 9:40:00 ES... Start Date: 03/02/20 Status: Ordered Zofran 4 mg oral tablet 1 tablet = 4 mg, By Mouth, 2 times a day, PRN Nausea & Vomiting, # 10 tablet, 0 Refills, Maintenance, 12/01/20 20:26:00 EDT, Tablet, [facility] #[id number], 162, cm, 10/29/20 17:08:00 EDT, Height, 86.3, [...] Obese class II(Confirmed) Active Opioid dependence(Confirmed) Active *[id number] Care Partn renee Saavedra(Confirmed) Active Health care [...] tolerance, and QD need over. 2genotype 02/02: [id number] is only mutation detected 3death of sister, caring for mother w/ dementia 4repeat screening colonoscopy in 2020 Social History Social History Type Response Smoking Status Former smoker, quit more than 30 days ago entered on: 10/29/20 Sex
--- OUTSIDE RECORDS SUMMARY | 2022-12-13 21:36 | XMS_ITS | Continuity of Care Document ---
Author Name Unknown Organization [facility] Address [address] [place] [address]- Care Team Providers Care Site Interpreter Name Role Phone Kahlil Sun MD Primary Care Physician Encounter [facility] Date(s): 05/18/22 - 06/17/22 [facility]/[place] [id number]- [place] Allergies, Adverse Reactions, Alerts Substance Reaction [...] [facility] 4Result Comment: pharmacy 5Location History: [facility] 6Admin Note: vis 08/31/11 7Admin Note: ADMIN.BY RN 8Result Comment: [facility] 9Admin Note: Admin. by RN 10Admin Note: Admin. by RN 11Admin Note: Admin. by RN 12Admin Note: vis 06/15/15 13Admin Note: dose #6 (3rd in 2nd series) 14Admin Note: dose #5 15Admin Note: #3 16Admin Note: LITO sanofi-pasteur 17Admin Note: ADMIN BEN, INSURANCE VERIFIER 18Admin Note: BY JEA R.N 19Admin Note: [...] 5 Refills, Maintenance, 12/05/21 14:43:00EDT, CR Tablet, [facility] #[id number], Partial fill upon patient request if the prescription is for a schedule II opioid drug., 162.56, cm, 12/05... Start Date: 12/05/21 Status: Ordered acyclovir 400 mg oral tablet 1 tablet = 400 mg, By Mouth, 2 times a day, # 10 tablet, 5 Refills, Maintenance, 01/08/21 18:41:00 EST, [facility] #[id number], 162, cm, 12/17/20 23:19:00 EDT, Height, 86.3, kg, 09/29/20 15:30:00 EDT, Dry Weight Start Date: 01/08/21 Stop Date: 02/07/21 Status: Ordered Albuterol (Eqv-ProAir HFA) 90 mcg/inh inhalation aerosol 2 puffs, Inhalation, Every 4 hours, PRN NEEDED FOR WHEEZING/SHORTNESS OF BREATH, USE WITH SPACERCHAMBER, # 8.5 Gm, 5 Refills, [facility] #[id number], 16, INHALE 2 PUFFS INTO LUNGS EVERY 4 HOURS NEEDED FOR WHEEZING/SHORTNESS OF BREATH. USE... Start Date: 11/13/20 Status: Ordered albuterol 0.083% inhalation solution 3 mL = 2.5 mg, Inhalation, Every 6 hours, PRN Wheezing/Shortness of Breath, # 60 each, 0 Refills, Maintenance, 06/07/20 12:51:00 EDT, Solution, [facility] #[id number], 162.56, cm, 05/23/20 14:31:00 EDT, Height, 77, [...] 01/04/22 19:11:00 EST, Route to Pharmacy Electronically, [facility] #[id number], 162.56, cm, 11/0... Start Date: 01/04/22 Status: Ordered Biktarvy oral tablet 1 tablet, By Mouth, Daily, # 30 tablet, 12 Refills, Maintenance, 04/17/22 7:54:00 EST, [facility] #[id number], 1 tablet By Mouth Daily, 162.56, cm, [...] 1 Refills, Maintenance, 07/10/21 18:35:00 EDT, Tablet, [facility] #[id number], Partial fill upon patient request if the prescription is for a schedule II opioid drug., 162, cm, 06/19/21 15:40:00 EDT... Start Date: 07/10/21 Status: Ordered cloNIDine 0.1 mg oral tablet 1, tablet, By Mouth, 3 times a day, PRN, # 270 tablet, Refills 0, Tot. Refills 0, Maintenance, NEEDED FOR ANXIETY, 05/13/22 16:45:00 EDT, Route to Pharmacy Electronically, [facility] #[id number], 162.56, cm, 05/07/22 12:32:00 EST, Height, 87.6... Start Date: 05/13/22 Status: Ordered Colace Clear 50 mg oral capsule 1 capsule = 50 mg, By Mouth, 2 times a day, PRN as needed for constipation, # 60 capsule, 0 Refills, Maintenance, 12/05/21 15:09:00 EDT, [facility] #[id number], Partial fill upon patient requestif the prescription is for a schedule II opioid nhi... Start Date: 12/05/21 Status: Ordered diclofenac 1% topical gel = 2 Gm, Topically, 4 times a day, PRN for pain, not to exceed: 10 gm/day, # 100 Gm, 1 Refills, Maintenance, 05/29/21 16:52:00 EDT, Gel, [facility], Partial fill upon patient request if the prescription is for a schedule II opioid... Start Date: 05/29/21 Status: Ordered Dulera 200 mcg-5 mcg/inh inhalation aerosol 2 puffs, Inhalation, 2 times a day, # 1 each, 3 Refills, Maintenance, 01/28/21 16:44:00 EST, Aerosol, [facility], STOP FLOVENT, 2 puffs Inhalation 2 times a day,x30 days, 162, cm,01/28/21 16:02:00 EST, Height, 86.3, kg, 09/29/20 1... Start Date: 01/28/21 Stop Date: 05/28/21 Status: Ordered escitalopram 10 mg oral tablet 1 tablet = 10 mg, By Mouth, Daily, # 30 tablet, 11 Refills, Maintenance, 04/16/22 16:59:00 EST, Tablet, [facility] #[id number], Partial fill upon patient request if the [...] Gm, 5 Refills, Maintenance, 07/19/19 15:19:00 EDT, [place], [facility] #[id number], 2 sprays Nares, Both Daily in AM,x30 [...] Replace Required Details, Route to Pharmacy Electronically, [facility] #[id number], 162.56, cm,... Start Date: 11/27/21 Status: Ordered [...] Replace Required Details, Route to Pharmacy Electronically, [facility] .. Start Date: 04/16/22 Status: Ordered Glucose [...] # 1 each, Maintenance, [facility] Blood pressure monitor neededto monitor blood pressure DX: hypertension, 07/11/18 17:28:42 EDT, Compound Start Date: 07/11/18 Status: Ordered humidifier humidifier, See Instructions, # 1 each, Refills 0, Tot. Refills 0, Maintenance, use as directed forchronic sinusitis J32, 04/09/17 14:21:37 EST, Compound Start Date: 04/09/17 Status: Ordered losartan 100 mg oral tablet 1 tablet, By Mouth, Daily, # 30 tablet, 5 Refills, [facility] #[id number], 162, cm, 10/09/21 16:19:00 EDT, Height, 86.3, kg, 09/29/20 15:30:00 EDT, Dry Weight Start Date: 10/20/21 Status: Ordered meclizine 25 mg oral tablet 1 tablet = 25 mg, By Mouth, 2 times a day, # 30 tablet, 1 Refills, Maintenance, 07/10/21 17:25:00 EDT, Tablet, [facility] #[id number], 162, cm, 06/19/21 15:40:00 EDT, Height, 86.3, kg, 09/29/20 15:30:00 EDT, Dry Weight Start Date: 07/10/21 Status: Ordered multivitamin with iron Multiple Vitamins with Iron oral tablet 1 tablet, By Mouth, Daily, # 30 tablet, 11 Refills, Maintenance, 04/17/22 7:51:00 EST, Tablet, [facility] #29025, 1 tablet By Mouth Daily, 162.56, cm, 04/16/22 16:00:00 EST, Height, 87.6, kg, 10/24/21 8:00:00 EDT, Dry Weight Start Date: 04/17/22 Status: Ordered Narcan 4 mg/0.1 mL nasal spray = 4 mg, Inhalation, Once, # 2 each, 1 Refills, Soft Stop, 10/29/20 12:23:00 EDT, [facility] #[id number], Partial fill upon patient request if the prescription is for a schedule II opioid drug., 162, cm, 09/29/20 15:30:00 EDT, Height, 86.3, kg, 08... Start Date: 10/29/20 Status: Ordered ondansetron 4 mg oral tablet 1 tablet = 4 mg, By Mouth, Daily, PRN Nausea & Vomiting, # 10 tablet, 3 Refills, Maintenance, 04/16/22 17:07:00 EST, [facility] #66829, 162.56, cm, 04/16/22 16:00:00 EST, Height, 87.6, [...] each, 0 Refills, Maintenance, 06/04/20 16:46:00 EDT, [facility] #99775, OK to sub for any gallon prep, used as directed, 162.56, cm, 05/23/20 14:31:00 EDT, Height, 77, kg, 03/21/20 15:04:00 EST, Dry We... Start Date: 06/04/20 Status: Ordered Senna 8.6 mg oral tablet 1-3 tablet, By Mouth, Daily, for constipation, # 90 tablet, Refills 5, Tot. Refills 5, Maintenance,03/26/20 15:25:00 EST, Route to Pharmacy Electronically, [facility] #[id number] Tablet, 162.56, cm, 03/21/20 15:01:00 EST, Height, [...] tablet, 5 Refills, Maintenance, 04/17/22 7:53:00 EST, [facility] #56071, 162.56, cm, 04/16/22 16:00:00 EST, Height, 87.6, kg, 10/24/21 8:00:00 EDT, Dry Weight Start Date: 04/17/22 Status: Ordered Suboxone 8 mg-2 mg Sublingual Film 2 film, Sublingual, Daily, dissolve under the tongue may fill less due 06/16/2022, # 14 film, 0 Refills, Maintenance, 06/16/22 12:07:00 EDT, Film, [facility], 2 film Sublingual Daily,x7 days,Instr:dissolve under the tongue; june f... Start Date: 06/16/22 Stop Date: 06/23/22 Status: Ordered Suboxone 8 mg-2 mg Sublingual Film 2.5 film, Sublingual, Daily, dissolve under the tongue increase in dose [id number], # 35 film, 0 Refills, Maintenance, 08/22/21 9:27:00 EDT, Film,[facility], 2.5 film Subli... Start Date: 08/22/21 Stop Date: 09/05/21 Status: Ordered Suboxone 8 mg-2 mg Sublingual Film 2 film, Sublingual, Daily, dissolve under the tongue may fill less due 05/27/2022, # 14 film, 0 Refills, Maintenance, 05/28/22 8:17:00 EDT, Film, [facility], 2 film Sublingual Daily,x7 days,Instr:dissolve under the tongue; june fi... Start Date: 05/28/22 Stop Date: 06/04/22 Status: Ordered SUMAtriptan 25 mg oral tablet 1 tablet = 25 mg, By Mouth, Daily, PRN as needed for migraine headache, may repeat dose after 2 hours up to a maximum of 2, # 6 tablet, 1 Refills, Maintenance, 03/02/20 19:47:00 EST, Tablet, [facility] #[id number], 162.56, cm, 01/04/20 9:40:00 ES... 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 is only mutation detected 3death of sister, caring for mother w/ dementia 4repeat screening colonoscopy in 2020 Social History Social History Type Response Smoking Status Former smoker, quit more than 30 days ago entered on: 12/05/21 Sex Patient Care team information Care Team Personnel Name: Kahlil Sun MD Position: [facility] Primary Care Physician Member Role: PCP Address: Address: [address] [place] [address] Name: Sharri Prince Position: [facility] PCO Associate Professional Member Role: Lifetime Consulting Provider Care Team Related Persons Name: SHANITA MENDOZA Address: home [address] [place] [address] Name: SHANITA MENDOZA BRITTNY Address: home [address] Name: ULICES PEARSON Name: ULICES ESPARZA Address: [place] [address] Name: LALA LI
--- OUTSIDE RECORDS SUMMARY | 2022-12-13 21:36 | XMS_ITS | Continuity of Care Document ---
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 2Result Comment: #2, [facility] 3Result Comment: [facility] 4Result Comment: pharmacy 5Location History: [facility] 6Admin Note: vis 08/31/11 7Admin Note: ADMIN.BY RN 8Result Comment: [facility] 9Admin Note: Admin. by RN 10Admin Note: Admin. by RN 11Admin Note: Admin. by RN 12Admin Note: vis 06/14/16 13Admin Note: dose #6 (3rd in 2nd series) 14Admin Note: dose #5 15Admin Note: #3 16Admin Note: LITO sanofi-pasteur 17Admin Note: ADMIN BEN, PROVIDER NETWORK MGR 18Admin Note: BY LEXI Agudelo 19Admin Note: [...] 1 Refills, Maintenance, 09/12/20 16:18:00EDT, CR Tablet, [facility] #[id number], Partial fill upon patient request if the prescription is for a schedule II opioid drug., 162, cm, 09/12/20... Start Date: 09/12/20 Status: Ordered acyclovir 400 mg oral tablet 1 tablet = 400 mg, By Mouth, 2 times a day, # 10 tablet, 5 Refills, Maintenance, 01/08/21 18:41:00 EST, [facility] #[id number], 162, cm, 12/17/20 23:19:00 EDT, Height, 86.3, kg, 09/29/20 15:30:00 EDT, Dry Weight Start Date: 01/08/21 Stop Date: 02/07/21 Status: Ordered Albuterol (Eqv-ProAir HFA) 90 mcg/inh inhalation aerosol 2 puffs, Inhalation, Every 4 hours, PRN NEEDED FOR WHEEZING/SHORTNESS OF BREATH, USE WITH SPACERCHAMBER, # 8.5 Gm, 5 Refills, [facility] #[id number], 16, INHALE 2 PUFFS INTO LUNGS EVERY 4 HOURS NEEDED FOR WHEEZING/SHORTNESS OF BREATH. USE... Start Date: 11/13/20 Status: Ordered albuterol 0.083% inhalation solution 3 mL = 2.5 mg, Inhalation, Every 6 hours, PRN Wheezing/Shortness of Breath, # 60 each, 0 Refills, Maintenance, 06/07/20 12:51:00 EDT, Solution, [facility] #[id number], 162.56, cm, 05/23/20 14:31:00 EDT, Height, 77, [...] tablet, 3 Refills, Maintenance, 03/02/20 19:50:00 EST, [facility] #49633, 1 tablet By Mouth Daily, 162.56, cm, [...] 2 Refills, Maintenance, 06/29/19 16:02:00 EDT, Tablet, [facility] #[id number], 162.56, cm, 05/03/19 16:30:00 EST, Height, 72.3, kg, 09/26/18 16:01:00 EDT, Dry Weight Start Date: 06/29/19 Status: Ordered cloNIDine 0.1 mg oral tablet 0.1 mg, 1, tablet, By Mouth, 3 times a day, as needed for anxiety, # 25 tablet, Refills 0, Tot. Refills 0, Maintenance, 10/10/19 21:36:00 EDT, Route to Pharmacy Electronically, [facility] #[id number], 162.56, cm, 10/09/19 10:36:00 EDT, Height, 72... [...] 11 Refills, Maintenance, 05/07/21 9:48:00 EST, Tablet, [facility] #[id number], Partial fill upon patient request if the prescription is for a schedule II opioid drug., 162, cm, 05/07/21 8:46:00 EST,... Start Date: 05/07/21 Status: Ordered Flonase 50 mcg/inh nasal spray 2 sprays, Nares, Both, Daily in AM, # 16 Gm, 5 Refills, Maintenance, 07/19/19 15:19:00 EDT, [place], [facility] #[id number], 2 sprays Nares, Both Daily in AM,x30 days, 162.56, cm, 05/03/19 16:30:00 EST, Height, 72.3, kg, 09/26/18 16:01:00 EDT, Dry... Start Date: 07/19/19 Stop Date: 01/15/20 Status: Ordered fluconazole 150 mg oral tablet 1 tablet = 150 mg, By Mouth, Once, # 1 tablet, 1 Refills, Soft Stop, 01/08/21 19:37:00 EST, Tablet,[facility] #[id number], 162, cm, 12/17/20 23:19:00 EDT, Height, 86.3, [...] 04/24/21 12:37:00 EST, Route to Pharmacy Electronically, [facility] #[id number], STOP HCTZ, 162, cm, 03/24/21 18:41:00 EST, [...] Instructions, # 1 each, Maintenance, covering for [facility] Blood pressure monitor neededto monitor blood [...] 05/12/18 14:45:33 EDT, Route to Pharmacy Electronically, [id number], [facility] Start Date: 05/12/18 Status: Ordered LORazepam 0.5 mg oral tablet 0.5 tablet = 0.25 mg, By Mouth, 2 times a day, PRN as needed for anxiety, # 20 tablet, 1 Refills, Maintenance, 05/16/19 23:11:00 EDT, Tablet, [facility] #[id number], 162.56, cm, 05/03/19 16:30:00 EST, Height, 72.3, kg, 09/26/18 16:01:00 EDT, Dry... Start Date: 05/16/19 Status: Ordered losartan 100 mg oral tablet 1 tablet, By Mouth, Daily, # 30 tablet, 5 Refills, Maintenance, 09/24/20 16:00:00 EDT, [facility] #39741, 162, cm, 09/19/20 15:59:00 EDT, Height, 82.1, kg, 06/08/20 17:25:00 EDT, Dry Weight Start Date: 09/24/20 Status: Ordered meclizine 25 mg oral tablet 1 tablet = 25 mg, By Mouth, 2 times a day, # 30 tablet, 1 Refills, Maintenance, 03/30/19 15:49:00 EST, Tablet, [facility] #88524, 162.56, cm, 03/08/19 14:34:00 EST, Height, 72.3, kg, 09/26/18 16:01:00 EDT, Dry Weight Start Date: 03/30/19 Status: Ordered multivitamin with iron Multiple Vitamins with Iron oral tablet 1 tablet, By Mouth, Daily, # 30 tablet, 11 Refills, Maintenance, 05/07/21 9:45:00 EST, Tablet, [facility] #10558, Partial fill upon patient request if the prescription is for a schedule II opioid drug., 1 tablet By Mouth Daily, 162, cm, 0... Start Date: 05/07/21 Status: Ordered Narcan 4 mg/0.1 mL nasal spray = 4 mg, Inhalation, Once, # 2 each, 1 Refills, Soft Stop, 10/29/20 12:23:00 EDT, [facility] #[id number], Partial fill upon patient request if the [...] each, 0 Refills, Maintenance, 06/04/20 16:46:00 EDT, [facility] #21729, OK to sub for any gallon prep, used as directed, 162.56, cm, 05/23/20 14:31:00 EDT, Height, 77, kg, 03/21/20 15:04:00 EST, Dry We... Start Date: 06/04/20 Status: Ordered predniSONE 50 mg oral tablet 1 tablet = 50 mg, By Mouth, Daily, # 7 tablet, 0 Refills, Maintenance, 01/28/21 16:37:00 EST, Tablet, [facility], Partial fill upon patient request if the prescription is for a schedule II opioid drug., 162, cm, 01/28/21 16:02:00 E... Start Date: 01/28/21 Stop Date: 02/04/21 Status: Ordered Senna 8.6 mg oral tablet 1-3 tablet, By Mouth, Daily, for constipation, # 90 tablet, Refills 5, Tot. Refills 5, Maintenance,03/26/20 15:25:00 EST, Route to Pharmacy Electronically, [facility] #[id number] Tablet, 162.56, cm, 03/21/20 15:01:00 EST, Height, [...] 5 Refills, Maintenance, 04/24/21 12:36:00 EST, Tablet, [facility] #[id number], STOP HCTZ, 162, cm, 03/24/21 18:41:00 EST, [...] under the tongue increase in dose Marva [id number] covering Dino [id number] due on/after 05/02/2021, # 35 film, 0 Refills, Maintenance, 05/23/21 13:46:00 EDT,Film, [facility], 2.5 film... Start Date: 05/23/21 Status: Ordered SUMAtriptan 25 mg oral tablet 1 tablet = 25 mg, By Mouth, Daily, PRN as needed for migraine headache, may repeat dose after 2 hours up to a maximum of 2, # 6 tablet, 1 Refills, Maintenance, 03/02/20 19:47:00 EST, Tablet, [facility] #[id number], 162.56, cm, 01/04/20 9:40:00 ES... Start Date: 03/02/20 Status: Ordered Zofran 4 mg oral tablet 1 tablet = 4 mg, By Mouth, 2 times a day, PRN Nausea & Vomiting, # 10 tablet, 0 Refills, Maintenance, 05/01/21 1:24:00 EST, Tablet, [facility] #[id number], 162, cm, 03/24/21 18:41:00 EST, Height, 86.3, kg, 09/29/20 15:30:00 EDT, Dry Weight Start Date: 05/01/21 Status: Ordered zolpidem 5 mg oral tablet 0.5 tablet = 2.5 mg, By Mouth, Daily at bedtime, PRN sleep, # 5 tablet, 0 Refills, Acute 05/29/21 9:47:00 EDT, 05/07/21 9:46:00 EST, Tablet, [facility] #[id number], Partial fill upon patient request if the [...] Obese class I(Confirmed) Active Opioid dependence(Confirmed) Active *[id number] Care Partn Aprilleela LopezSaavedra(Confirmed) Active Health care [...] tolerance, and QD need over. 2genotype 02/02: [id number] is only mutation detected 3death of sister, caring for mother w/ dementia 4repeat screening colonoscopy in 2020 Social History Social History Type Response Smoking Status Former smoker, quit more than 30 days ago entered on: 10/29/20 Sex
--- OUTSIDE RECORDS SUMMARY | 2022-12-13 21:36 | XMS_ITS | Continuity of Care Document ---
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 by RN 7Admin Note: Admin. by RN 8Admin Note: Admin. by RN 9Admin Note: vis 06/15/15 10Admin Note: dose #6 (3rd in 2nd series) 11Admin Note: dose #5 12Admin Note: #3 13Admin Note: LITO sanofi-pasteur 14Admin Note: ADMIN BEN, NURSE SPECIAL 15Admin Note: BY LEXI Agudelo 16Admin Note: [...] 0 Refills, Maintenance, 06/07/19 14:59:00 EDT, Solution, [facility] #[id number], 162.56, cm, 05/03/19 16:30:00 EST, Height, 72.3, kg, 09/26/18 16:01:00 EDT, Start Date: 06/07/19 Status: Ordered Biktarvy oral tablet 1 tablet, By Mouth, Daily, # 90 tablet, 3 Refills, Maintenance, 03/02/20 19:50:00 EST, [facility] #[id number], 1 tablet By Mouth Daily, 162.56, cm, 01/04/20 9:40:00 EST, Height, 72.3, kg, 09/26/18 16:01:00 EDT, Dry Weight Start Date: 03/02/20 Status: Ordered Blood Pressure Meter Blood Pressure Meter, See Instructions, # 1 each, Refills 0, Tot. Refills 0, Maintenance, Use for, 07/11/18 16:11:47 EDT, Compound Start Date: 07/11/18 Status: Ordered buprenorphine-naloxone 2 mg-0.5 mg sublingual film 1 film, Sublingual, Daily, [place] [id number], # 14 film, 0 Refills, Maintenance, 02/08/20 16:47:00 EST, [facility] #42550, Partial fill on request., 1 film Sublingual Daily,Instr:[place] [id number], 162.56, cm, 01/04/20 9:40:00 EST, Height, 7... Start Date: 02/08/20 Status: Ordered buprenorphine-naloxone 2 mg-0.5 mg sublingual film 0.25 each, Sublingual, Daily, [place] [id number], # 8 film, 0 Refills, Maintenance, 12/15/19 19:00:00 EDT, [facility] #[id number], Partial fill on request., 0.25 each Sublingual Daily,Instr:[place] [id number], 162.56, cm, 10/09/19 10:36:00 EDT, Hei... Start Date: 12/15/19 Status: Ordered cetirizine 10 mg oral tablet 1 tablet = 10 mg, By Mouth, Daily, For allergies., # 30 tablet, 2 Refills, Maintenance, 06/29/19 16:02:00 EDT, Tablet, [facility] #56235, 162.56, cm, 05/03/19 16:30:00 EST, Height, 72.3, kg, 09/26/18 16:01:00 EDT, Dry Weight Start Date: 06/29/19 Status: Ordered cloNIDine 0.1 mg oral tablet 0.1 mg, 1, tablet, By Mouth, 3 times a day, as needed for anxiety, # 25 tablet, Refills 0, Tot. Refills 0, Maintenance, 10/10/19 21:36:00 EDT, Route to Pharmacy Electronically, [facility] #07523, 162.56, cm, 10/09/19 10:36:00 EDT, Height, 72... [...] Gm, 5 Refills, Maintenance, 07/19/19 15:19:00 EDT, [place], [facility] #25889, 2 sprays Nares, Both Daily in AM,x30 days, 162.56, cm, 05/03/19 16:30:00 EST, Height, 72.3, kg, 09/26/18 16:01:00 EDT, Dry... Start Date: 07/19/19 Stop Date: 01/15/20 Status: Ordered Flovent HFA 44 mcg/inh inhalation aerosol 1 puffs, Inhalation, 2 times a day, # 1 each, 5 Refills, Maintenance, 06/29/19 16:26:00 EDT, Aerosol, [facility] #94311, 162.56, cm, 05/03/19 16:30:00 EST, Height, 72.3, [...] 3 Refills, Maintenance, 03/02/20 19:48:00 EST, Tablet, [facility] #58216, 30 day supply preferred for present, 162.56, [...] 05/12/18 14:45:33 EDT, Route to Pharmacy Electronically, [id number], [facility] Start Date: 05/12/18 Status: Ordered LORazepam 0.5 mg oral tablet 0.5 tablet = 0.25 mg, By Mouth, 2 times a day, PRN as needed for anxiety, # 20 tablet, 1 Refills, Maintenance, 05/16/19 23:11:00 EDT, Tablet, [facility] #50715, 162.56, cm, 05/03/19 16:30:00 EST, Height, 72.3, kg, 09/26/18 16:01:00 EDT, Dry... Start Date: 05/16/19 Status: Ordered losartan 100 mg oral tablet 1 tablet = 100 mg, By Mouth, Daily, # 30 tablet, 11 Refills, Maintenance, 06/29/19 15:59:00 EDT, Tablet, [facility] #08992, 162.56, cm, 05/03/19 16:30:00 EST, Height, 72.3, kg, 09/26/18 16:01:00 EDT, Dry Weight Start Date: 06/29/19 Status: Ordered meclizine 25 mg oral tablet 1 tablet = 25 mg, By Mouth, 2 times a day, # 30 tablet, 1 Refills, Maintenance, 03/30/19 15:49:00 EST, Tablet, [facility] #74715, 162.56, cm, 03/08/19 14:34:00 EST, Height, 72.3, [...] 15:00:00 EDT, Aerosol, Route to Pharmacy Electronically, [id number], [facility] #[id number], 1... Start Date: 06/07/19 Status: Ordered Senna 8.6 mg oral tablet 1-3 tablet, By Mouth, Daily, for constipation, # 90 tablet, Refills 5, Tot. Refills 5, Maintenance,03/26/20 15:25:00 EST, Route to Pharmacy Electronically, [facility] #[id number] Tablet, 162.56, cm, 03/21/20 15:01:00 EST, Height, [...] 1 Refills, Maintenance, 03/02/20 19:47:00 EST, Tablet, [facility] #93295, 162.56, cm, 01/04/20 9:40:00 ES... Start Date: 03/02/20 Status: Ordered Zofran 4 mg oral tablet 1 tablet = 4 mg, By Mouth, 2 times a day, PRN Nausea & Vomiting, # 10 tablet, 0 Refills, Maintenance, 03/02/20 19:47:00 EST, Tablet, [facility] #[id number], 162.56, cm, 01/04/20 9:40:00 EST,Height, 72.3, kg, [...] 2016 Active Migraine(Confirmed) Active Opioid dependence(Confirmed) Active *[id number] Care Partn renee Saavedra(Confirmed) Active Health care [...] upperGI tolerance, and QD need over. 2genotype 12/05: [id number] is only mutation detected 3death of sister, caring for mother w/ dementia 4repeat screening colonoscopy in 2020 Social History Social History Type Response Smoking Status Former smoker, quit more than 30 days ago entered on: 05/24/18 Sex
--- OUTSIDE RECORDS SUMMARY | 2022-12-13 21:36 | XMS_ITS | Continuity of Care Document ---
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 3Result Comment: [facility] 4Result Comment: pharmacy 5Location History: [facility] 6Admin Note: vis 08/31/11 7Admin Note: ADMIN.BY RN 8Result Comment: [facility] 9Admin Note: Admin. by RN 10Admin Note: Admin. by RN 11Admin Note: Admin. by RN 12Admin Note: vis 06/15/15 13Admin Note: dose #6 (3rd in 2nd series) 14Admin Note: dose #5 15Admin Note: #3 16Admin Note: LITO sanofi-pasteur 17Admin Note: ADMIN BEN, [facility] 18Admin Note: BY LEXI Agudelo 19Admin Note: [...] 1 Refills, Maintenance, 09/12/20 16:18:00EDT, CR Tablet, [facility] #[id number], Partial fill upon patient request if the prescription is for a schedule II opioid drug., 162, cm, 09/12/20... Start Date: 09/12/20 Status: Ordered acyclovir 400 mg oral tablet 1 tablet = 400 mg, By Mouth, 2 times a day, # 10 tablet, 5 Refills, Maintenance, 01/08/21 18:41:00 EST, [facility] #[id number], 162, cm, 12/17/20 23:19:00 EDT, Height, 86.3, kg, 09/29/20 15:30:00 EDT, Dry Weight Start Date: 01/08/21 Stop Date: 02/07/21 Status: Ordered Albuterol (Eqv-ProAir HFA) 90 mcg/inh inhalation aerosol 2 puffs, Inhalation, Every 4 hours, PRN NEEDED FOR WHEEZING/SHORTNESS OF BREATH, USE WITH SPACERCHAMBER, # 8.5 Gm, 5 Refills, [facility] #[id number], 16, INHALE 2 PUFFS INTO LUNGS EVERY 4 HOURS NEEDED FOR WHEEZING/SHORTNESS OF BREATH. USE... Start Date: 11/13/20 Status: Ordered albuterol 0.083% inhalation solution 3 mL = 2.5 mg, Inhalation, Every 6 hours, PRN Wheezing/Shortness of Breath, # 60 each, 0 Refills, Maintenance, 06/07/20 12:51:00 EDT, Solution, [facility] #[id number], 162.56, cm, 05/23/20 14:31:00 EDT, Height, 77, [...] tablet, 3 Refills, Maintenance, 03/02/20 19:50:00 EST, [facility] #[id number], 1 tablet By Mouth Daily, 162.56, cm, [...] 2 Refills, Maintenance, 06/29/19 16:02:00 EDT, Tablet, [facility] #31873, 162.56, cm, 05/03/19 16:30:00 EST, Height, 72.3, kg, 09/26/18 16:01:00 EDT, Dry Weight Start Date: 06/29/19 Status: Ordered cloNIDine 0.1 mg oral tablet 0.1 mg, 1, tablet, By Mouth, 3 times a day, as needed for anxiety, # 25 tablet, Refills 0, Tot. Refills 0, Maintenance, 10/10/19 21:36:00 EDT, Route to Pharmacy Electronically, [facility] #[id number], 162.56, cm, 10/09/19 10:36:00 EDT, Height, 72... [...] 11 Refills, Maintenance, 05/07/21 9:48:00 EST, Tablet, [facility] #[id number], Partial fill upon patient request if the prescription is for a schedule II opioid drug., 162, cm, 05/07/21 8:46:00 EST,... Start Date: 05/07/21 Status: Ordered Flonase 50 mcg/inh nasal spray 2 sprays, Nares, Both, Daily in AM, # 16 Gm, 5 Refills, Maintenance, 07/19/19 15:19:00 EDT, [place], [facility] #[id number], 2 sprays Nares, Both Daily in AM,x30 days, 162.56, cm, 05/03/19 16:30:00 EST, Height, 72.3, kg, 09/26/18 16:01:00 EDT, Dry... Start Date: 07/19/19 Stop Date: 01/15/20 Status: Ordered fluconazole 150 mg oral tablet 1 tablet = 150 mg, By Mouth, Once, # 1 tablet, 1 Refills, Soft Stop, 01/08/21 19:37:00 EST, Tablet,[facility] #[id number], 162, cm, 12/17/20 23:19:00 EDT, Height, 86.3, [...] 04/24/21 12:37:00 EST, Route to Pharmacy Electronically, [facility] #[id number], STOP HCTZ, 162, cm, 03/24/21 18:41:00 EST, [...] # 1 each, Maintenance, covering for [facility] Blood pressure monitor neededto monitor [...] 05/12/18 14:45:33 EDT, Route to Pharmacy Electronically, [id number], [facility] Start Date: 05/12/18 Status: Ordered LORazepam 0.5 mg oral tablet 0.5 tablet = 0.25 mg, By Mouth, 2 times a day, PRN as needed for anxiety, # 20 tablet, 1 Refills, Maintenance, 05/16/19 23:11:00 EDT, Tablet, [facility] #[id number], 162.56, cm, 05/03/19 16:30:00 EST, Height, 72.3, kg, 09/26/18 16:01:00 EDT, Dry... Start Date: 05/16/19 Status: Ordered losartan 100 mg oral tablet 1 tablet, By Mouth, Daily, # 30 tablet, 5 Refills, Maintenance, 09/24/20 16:00:00 EDT, [facility] #88094, 162, cm, 09/19/20 15:59:00 EDT, Height, 82.1, kg, 06/08/20 17:25:00 EDT, Dry Weight Start Date: 09/24/20 Status: Ordered meclizine 25 mg oral tablet 1 tablet = 25 mg, By Mouth, 2 times a day, # 30 tablet, 1 Refills, Maintenance, 03/30/19 15:49:00 EST, Tablet, [facility] #52685, 162.56, cm, 03/08/19 14:34:00 EST, Height, 72.3, kg, 09/26/18 16:01:00 EDT, Dry Weight Start Date: 03/30/19 Status: Ordered multivitamin with iron Multiple Vitamins with Iron oral tablet 1 tablet, By Mouth, Daily, # 30 tablet, 11 Refills, Maintenance, 05/07/21 9:45:00 EST, Tablet, [facility] #37301, Partial fill upon patient request if the prescription is for a schedule II opioid drug., 1 tablet By Mouth Daily, 162, cm, ... Start Date: 05/07/21 Status: Ordered Narcan 4 mg/0.1 mL nasal spray = 4 mg, Inhalation, Once, # 2 each, 1 Refills, Soft Stop, 10/29/20 12:23:00 EDT, [facility] #10083, Partial fill upon patient request if the [...] each, 0 Refills, Maintenance, 06/04/20 16:46:00 EDT, [facility] #49256, OK to sub for any gallon prep, [...] Maintenance,03/26/20 15:25:00 EST, Route to Pharmacy Electronically, [facility] #[id number] Tablet, 162.56, cm, 03/21/20 15:01:00 EST, Height, [...] 5 Refills, Maintenance, 04/24/21 12:36:00 EST, Tablet, [facility] #74017, STOP HCTZ, 162, cm, 03/24/21 18:41:00 EST, [...] under the tongue increase in dose [place] [id number] covering Dino [id number] due on/after 05/02/2021, # 35 film, 0 Refills, Maintenance, 05/05/21 15:07:00 EST,Film, [facility] #59175, 2.5 film Sub... Start Date: 05/05/21 Status: Ordered SUMAtriptan 25 mg oral tablet 1 tablet = 25 mg, By Mouth, Daily, PRN as needed for migraine headache, may repeat dose after 2 hours up to a maximum of 2, # 6 tablet, 1 Refills, Maintenance, 03/02/20 19:47:00 EST, Tablet, [facility] #62089, 162.56, cm, 01/04/20 9:40:00 ES... Start Date: 03/02/20 Status: Ordered Zofran 4 mg oral tablet 1 tablet = 4 mg, By Mouth, 2 times a day, PRN Nausea & Vomiting, # 10 tablet, 0 Refills, Maintenance, 05/01/21 1:24:00 EST, Tablet, [facility] #88669, 162, cm, 03/24/21 18:41:00 EST, Height, 86.3, kg, 09/29/20 15:30:00 EDT, Dry Weight Start Date: 05/01/21 Status: Ordered zolpidem 5 mg oral tablet 0.5 tablet = 2.5 mg, By Mouth, Daily at bedtime, PRN sleep, # 5 tablet, 0 Refills, Acute 05/29/21 9:47:00 EDT, 05/07/21 9:46:00 EST, Tablet, [facility] #12975, Partial fill upon patient request if the [...] Obese class I(Confirmed) Active Opioid dependence(Confirmed) Active *[id number] Care Partn er April Saavedra(Confirmed) Active Health [...] tolerance, and QD need over. 2genotype 02/02: [id number] is only mutation detected 3death of sister, caring for mother w/ dementia 4repeat screening colonoscopy in 2020 Social History Social History Type Response Smoking Status Former smoker, quit more than 30 days ago entered on: 10/29/20 Sex
--- OUTSIDE RECORDS SUMMARY | 2022-12-13 21:36 | XMS_ITS | Continuity of Care Document ---
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 2Result Comment: #2, [facility] 3Result Comment: [facility] 4Result Comment: pharmacy 5Location History: [place] [...] tablet, 5 Refills, Maintenance, 01/08/21 18:41:00 EST, [facility] #96766, 162, cm, 12/17/20 23:19:00 EDT, Height, 86.3, kg, 09/29/20 15:30:00 EDT, Dry Weight Start Date: 01/08/21 Stop Date: 02/07/21 Status: Ordered Albuterol (Eqv-ProAir HFA) 90 mcg/inh inhalation aerosol 2 puffs, Inhalation, Every 4 hours, PRN NEEDED FOR WHEEZING/SHORTNESS OF BREATH, USE WITH SPACERCHAMBER, # 8.5 Gm, 5 Refills, [facility] #79066, 16, INHALE 2 PUFFS INTO LUNGS EVERY 4 HOURS NEEDED FOR WHEEZING/SHORTNESS OF BREATH. USE... Start Date: 11/13/20 Status: Ordered albuterol 0.083% inhalation solution 3 mL = 2.5 mg, Inhalation, Every 6 hours, PRN Wheezing/Shortness of Breath, # 60 each, 0 Refills, Maintenance, 06/07/20 12:51:00 EDT, Solution, [facility] #[id number], 162.56, cm, 05/23/20 14:31:00 EDT, Height, 77, [...] tablet, 3 Refills, Maintenance, 06/13/21 22:19:00 EDT, [facility] #28517, 1 tablet By Mouth Daily, 162, cm, [...] 1 Refills, Maintenance, 07/10/21 18:35:00 EDT, Tablet, [facility] #93764, Partial fill upon patient request if the prescription is for a schedule II opioid drug., 162, cm, 06/19/21 15:40:00 EDT... Start Date: 07/10/21 Status: Ordered cloNIDine 0.1 mg oral tablet 0.1 mg, 1, tablet, By Mouth, 3 times a day, as needed for anxiety, # 25 tablet, Refills 0, Tot. Refills 0, Maintenance, 10/10/19 21:36:00 EDT, Route to Pharmacy Electronically, [facility] #[id number], 162.56, cm, 10/09/19 10:36:00 EDT, Height, 72... Start Date: 10/10/19 Status: Ordered diclofenac 1% topical gel = 2 Gm, Topically, 4 times a day, PRN for pain, not to exceed: 10 gm/day, # 100 Gm, 1 Refills, Maintenance, 05/29/21 16:52:00 EDT, Gel, [facility], Partial fill upon patient request if the prescription is for a schedule II opioid... Start Date: 05/29/21 Status: Ordered Dulera 200 mcg-5 mcg/inh inhalation aerosol 2 puffs, Inhalation, 2 times a day, # 1 each, 3 Refills, Maintenance, 01/28/21 16:44:00 EST, Aerosol, [facility], STOP FLOVENT, 2 puffs Inhalation 2 times a day,x30 days, 162, cm,01/28/21 16:02:00 EST, Height, 86.3, kg, 09/29/20 1... Start Date: 01/28/21 Stop Date: 05/28/21 Status: Ordered escitalopram 10 mg oral tablet 1 tablet = 10 mg, By Mouth, Daily, # 30 tablet, 11 Refills, Maintenance, 07/31/21 17:50:00 EDT, Tablet, [facility] #22306, Partial fill upon patient request if the [...] Gm, 5 Refills, Maintenance, 07/19/19 15:19:00 EDT, [place], [facility] #45648, 2 sprays Nares, Both Daily in AM,x30 [...] 04/24/21 12:37:00 EST, Route to Pharmacy Electronically, [facility] #[id number], STOP HCTZ, 162, cm, 03/24/21 18:41:00 EST, [...] # 1 each, Maintenance, covering for [facility] Blood pressure monitor neededto monitor blood pressure DX: hypertension, 07/11/18 17:28:42 EDT, Compound Start Date: 07/11/18 Status: Ordered humidifier humidifier, See Instructions, # 1 each, Refills 0, Tot. Refills 0, Maintenance, use as directed forchronic sinusitis J32, 04/09/17 14:21:37 EST, Compound Start Date: 04/09/17 Status: Ordered losartan 100 mg oral tablet 1 tablet, By Mouth, Daily, # 30 tablet, 5 Refills, [facility] #49896, 162, cm, 10/09/21 16:19:00 EDT, Height, 86.3, kg, 09/29/20 15:30:00 EDT, Dry Weight Start Date: 10/20/21 Status: Ordered meclizine 25 mg oral tablet 1 tablet = 25 mg, By Mouth, 2 times a day, # 30 tablet, 1 Refills, Maintenance, 07/10/21 17:25:00 EDT, Tablet, [facility] #69014, 162, cm, 06/19/21 15:40:00 EDT, Height, 86.3, kg, 09/29/20 15:30:00 EDT, Dry Weight Start Date: 07/10/21 Status: Ordered multivitamin with iron Multiple Vitamins with Iron oral tablet 1 tablet, By Mouth, Daily, # 30 tablet, 11 Refills, Maintenance, 09/06/21 19:08:00 EDT, Tablet, [facility] #04924, 1 tablet By Mouth Daily, 162, cm, 07/31/21 16:00:00 EDT, Height, 86.3, kg,09/29/20 15:30:00 EDT, Dry Weight Start Date: 09/06/21 Status: Ordered Narcan 4 mg/0.1 mL nasal spray = 4 mg, Inhalation, Once, # 2 each, 1 Refills, Soft Stop, 10/29/20 12:23:00 EDT, [facility] #57596, Partial fill upon patient request if the prescription is for a schedule II opioid drug., 162, cm, 09/29/20 15:30:00 EDT, Height, 86.3, kg, 08... Start Date: 10/29/20 Status: Ordered ondansetron 4 mg oral tablet 1 tablet = 4 mg, By Mouth, Daily, PRN Nausea & Vomiting, # 10 tablet, 3 Refills, Maintenance, 10/08/21 22:17:00 EDT, [facility] #23060, 162, cm, 10/09/21 16:19:00 EDT, Height, 86.3, [...] each, 0 Refills, Maintenance, 06/04/20 16:46:00 EDT, [facility] #90911, OK to sub for any gallon prep, used as directed, 162.56, cm, 05/23/20 14:31:00 EDT, Height, 77, kg, 03/21/20 15:04:00 EST, Dry We... Start Date: 06/04/20 Status: Ordered Senna 8.6 mg oral tablet 1-3 tablet, By Mouth, Daily, for constipation, # 90 tablet, Refills 5, Tot. Refills 5, Maintenance,03/26/20 15:25:00 EST, Route to Pharmacy Electronically, [facility] #[id number] Tablet, 162.56, cm, 03/21/20 15:01:00 EST, Height, [...] 5 Refills, Maintenance, 04/24/21 12:36:00 EST, Tablet, [facility] #11930, STOP HCTZ, 162, cm, 03/24/21 18:41:00 EST, Height, 86.3, kg, 09/29/20 15:30:00 EDT, Dry Weight Start Date: 04/24/21 Stop Date: 10/21/21 Status: Ordered Suboxone 8 mg-2 mg Sublingual Film 2.5 film, Sublingual, Daily, dissolve under the tongue increase in dose [place] [id number] due on/after 09/25/2021, # 70 film, 0 Refills, Maintenance, 09/25/21 14:31:00 EDT, Film, [facility], 2.5 film Sublingual Daily,x28 days,In... Start Date: 09/25/21 Stop Date: 10/23/21 Status: Ordered Suboxone 8 mg-2 mg Sublingual Film 2.5 film, Sublingual, Daily, dissolve under the tongue increase in dose [place] [id number] coveringfor [place] due on/after 08/22/2021, # 35 film, 0 Refills, Maintenance, 08/22/21 9:27:00 EDT, Film,[facility], 2.5 film Subli... Start Date: 08/22/21 Stop Date: 09/05/21 Status: Ordered SUMAtriptan 25 mg oral tablet 1 tablet = 25 mg, By Mouth, Daily, PRN as needed for migraine headache, may repeat dose after 2 hours up to a maximum of 2, # 6 tablet, 1 Refills, Maintenance, 03/02/20 19:47:00 EST, Tablet, [facility] #59383, 162.56, cm, 01/04/20 9:40:00 ES... Start Date: 03/02/20 Status: Ordered zolpidem 5 mg oral tablet 1 tablet = 5 mg, By Mouth, Daily at bedtime, PRN as needed for sleep, # 30 tablet, 1 Refills, Maintenance, 10/09/21 22:14:00 EDT, [facility] #28865, 162, cm, 10/09/21 16:19:00 EDT, Height, 86.3, [...] Obese class I(Confirmed) Active Opioid dependence(Confirmed) Active *[id number] Care Partn er April Saavedra(Confirmed) Active Health [...] tolerance, and QD need over. 2genotype 02/02: [id number] is only mutation detected 3death of sister, caring for mother w/ dementia 4repeat screening colonoscopy in 2020 Social History Social History Type Response Smoking Status Former smoker, quit more than 30 days ago entered on: 10/29/20 Sex Care Team Personnel Name: Dino PEREZ, Kahlil Barrera Address: [address] [place] [address]
--- OUTSIDE RECORDS SUMMARY | 2022-12-13 21:36 | XMS_ITS | Continuity of Care Document ---
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 2Result Comment: #2, [facility] 3Result Comment: [facility] 4Result Comment: pharmacy 5Location History: [facility] 6Admin Note: vis 08/31/11 7Admin Note: ADMIN.BY RN 8Result Comment: [facility] 9Admin Note: Admin. by RN 10Admin Note: Admin. by RN 11Admin Note: Admin. 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 USE... Start Date: 11/13/20 Status: Ordered albuterol 0.083% inhalation solution 3 mL = 2.5 mg, Inhalation, Every 6 hours, PRN Wheezing/Shortness of Breath, # 60 each, 0 Refills, Maintenance, 06/07/20 12:51:00 EDT, Solution, [facility] #00415, 162.56, cm, 05/23/20 14:31:00 EDT, Height, 77, [...] tablet, 3 Refills, Maintenance, 06/13/21 22:19:00 EDT, [facility] #27203, 1 tablet By Mouth Daily, 162, cm, [...] 1 Refills, Maintenance, 07/10/21 18:35:00 EDT, Tablet, [facility] #57748, Partial fill upon patient request if the prescription is for a schedule II opioid drug., 162, cm, 06/19/21 15:40:00 EDT... Start Date: 07/10/21 Status: Ordered cloNIDine 0.1 mg oral tablet 0.1 mg, 1, tablet, By Mouth, 3 times a day, as needed for anxiety, # 25 tablet, Refills 0, Tot. Refills 0, Maintenance, 10/10/19 21:36:00 EDT, Route to Pharmacy Electronically, [facility] #[id number], 162.56, cm, 10/09/19 10:36:00 EDT, Height, 72... [...] 11 Refills, Maintenance, 07/31/21 17:50:00 EDT, Tablet, [facility] #87433, Partial fill upon patient request if the [...] Gm, 5 Refills, Maintenance, 07/19/19 15:19:00 EDT, [place], [facility] #03417, 2 sprays Nares, Both Daily in AM,x30 [...] 04/24/21 12:37:00 EST, Route to Pharmacy Electronically, [facility] #[id number], STOP HCTZ, 162, cm, 03/24/21 18:41:00 EST, [...] Instructions, # 1 each, Maintenance, covering for [facility] Blood pressure monitor neededto [...] Mouth, Daily, # 30 tablet, 5 Refills, [facility] #53242, 162, cm, 10/09/21 16:19:00 EDT, Height, 86.3, kg, 09/29/20 15:30:00 EDT, Dry Weight Start Date: 10/20/21 Status: Ordered meclizine 25 mg oral tablet 1 tablet = 25 mg, By Mouth, 2 times a day, # 30 tablet, 1 Refills, Maintenance, 07/10/21 17:25:00 EDT, Tablet, [facility] #12789, 162, cm, 06/19/21 15:40:00 EDT, Height, 86.3, kg, 09/29/20 15:30:00 EDT, Dry Weight Start Date: 07/10/21 Status: Ordered multivitamin with iron Multiple Vitamins with Iron oral tablet 1 tablet, By Mouth, Daily, # 30 tablet, 11 Refills, Maintenance, 09/06/21 19:08:00 EDT, Tablet, [facility] #27833, 1 tablet By Mouth Daily, 162, cm, 07/31/21 16:00:00 EDT, Height, 86.3, kg,09/29/20 15:30:00 EDT, Dry Weight Start Date: 09/06/21 Status: Ordered Narcan 4 mg/0.1 mL nasal spray = 4 mg, Inhalation, Once, # 2 each, 1 Refills, Soft Stop, 10/29/20 12:23:00 EDT, [facility] #20533, Partial fill upon patient request if the prescription is for a schedule II opioid drug., 162, cm, 09/29/20 15:30:00 EDT, Height, 86.3, kg, 08... Start Date: 10/29/20 Status: Ordered ondansetron 4 mg oral tablet 1 tablet = 4 mg, By Mouth, Daily, PRN Nausea & Vomiting, # 10 tablet, 3 Refills, Maintenance, 10/08/21 22:17:00 EDT, [facility] #33276, 162, cm, 10/09/21 16:19:00 EDT, Height, 86.3, [...] each, 0 Refills, Maintenance, 06/04/20 16:46:00 EDT, [facility] #82340, OK to sub for any gallon prep, used as directed, 162.56, cm, 05/23/20 14:31:00 EDT, Height, 77, kg, 03/21/20 15:04:00 EST, Dry We... Start Date: 06/04/20 Status: Ordered Senna 8.6 mg oral tablet 1-3 tablet, By Mouth, Daily, for constipation, # 90 tablet, Refills 5, Tot. Refills 5, Maintenance,03/26/20 15:25:00 EST, Route to Pharmacy Electronically, [facility] #[id number] Tablet, 162.56, cm, 03/21/20 15:01:00 EST, Height, [...] Refills, Maintenance, 04/24/21 12:36:00 EST, Tablet, [facility] #11444, STOP HCTZ, 162, cm, 03/24/21 18:41:00 EST, Height, 86.3, kg, 09/29/20 15:30:00 EDT, Dry Weight Start Date: 04/24/21 Stop Date: 10/21/21 Status: Ordered Suboxone 8 mg-2 mg Sublingual Film 2.5 film, Sublingual, Daily, dissolve under the tongue increase in dose [place] [id number] due on/after 09/25/2021, # 70 film, 0 Refills, Maintenance, 09/25/21 14:31:00 EDT, Film, [facility], 2.5 film Sublingual Daily,x28 days,In... Start Date: 09/25/21 Stop Date: 10/23/21 Status: Ordered Suboxone 8 mg-2 mg Sublingual Film 2.5 film, Sublingual, Daily, dissolve under the tongue increase in dose [place] [id number] coveringfor [place] due on/after 08/22/2021, # 35 film, 0 Refills, Maintenance, 08/22/21 9:27:00 EDT, Film,[facility], 2.5 film Subli... Start Date: 08/22/21 Stop Date: 09/05/21 Status: Ordered SUMAtriptan 25 mg oral tablet 1 tablet = 25 mg, By Mouth, Daily, PRN as needed for migraine headache, may repeat dose after 2 hours up to a maximum of 2, # 6 tablet, 1 Refills, Maintenance, 03/02/20 19:47:00 EST, Tablet, [facility] #14307, 162.56, cm, 01/04/20 9:40:00 ES... Start Date: 03/02/20 Status: Ordered zolpidem 5 mg oral tablet 1 tablet = 5 mg, By Mouth, Daily at bedtime, PRN as needed for sleep, # 30 tablet, 1 Refills, Maintenance, 10/09/21 22:14:00 EDT, [facility] #33768, 162, cm, 10/09/21 16:19:00 EDT, Height, 86.3, [...] Obese class I(Confirmed) Active Opioid dependence(Confirmed) Active *[id number] Care Partn er Arpil Saavedra(Confirmed) Active Health care maintenance(Confirmed) Active Portal [...] tolerance, and QD need over. 2genotype 02/02: [id number] is only mutation detected 3death of sister, caring for mother w/ dementia 4repeat screening colonoscopy in 2020 Social History Social History Type Response Smoking Status Former smoker, quit more than 30 days ago entered on: 10/29/20 Sex Care Team Personnel Name: Kahlil Sun MD Address: [address] [place] [address]
--- OUTSIDE RECORDS SUMMARY | 2022-12-13 21:36 | XMS_ITS | Continuity of Care Document ---
Author Name Unknown Organization [facility] ter Address [address] [place] [address]- Care Team Providers Care Rn Medicare Name Role Phone Kahlil Sun MD Primary Care Physician [phone] [place] [facility] [place] - 12/03/[address] [address]- Attending Physician: Rian Kenny MD Admitting Physician: [...] events reported or observed. 2[facility] Comment[facility] 3Result Comment: [facility] 4Result Comment: pharmacy 5Location History: [facility] 6Admin Note: vis 08/31/11 7Admin Note: ADMIN.BY RN 8Result Comment: [facility] 9Admin Note: Admin. by RN 10Admin Note: Admin. by RN 11Admin Note: Admin. by RN 12Admin Note: vis 06/15/15 13Admin Note: dose #6 (3rd in 2nd series) 14Admin Note: dose #5 15Admin Note: #3 16Admin Note: LITO sanofi-pasteur 17Admin Note: ADMIN BEN, OBIEE ARCHITECT 18Admin Note: BY LEXI Agudelo 19Admin [...] tablet, 5 Refills, Maintenance, 01/08/21 18:41:00 EST, [facility] #[id number], 162, cm, 12/17/20 23:19:00 EDT, Height, 86.3, kg, 09/29/20 15:30:00 EDT, Dry Weight Start Date: 01/08/21 Stop Date: 02/07/21 Status: Ordered Albuterol (Eqv-ProAir HFA) 90 mcg/inh inhalation aerosol 2 puffs, Inhalation, Every 4 hours, PRN NEEDED FOR WHEEZING/SHORTNESS OF BREATH, USE WITH SPACERCHAMBER, # 8.5 Gm, 5 Refills, [facility] #16160, 16, INHALE 2 PUFFS INTO LUNGS EVERY 4 HOURS NEEDED FOR WHEEZING/SHORTNESS OF BREATH. USE... Start Date: 11/13/20 Status: Ordered albuterol 0.083% inhalation solution 3 mL = 2.5 mg, Inhalation, Every 6 hours, PRN Wheezing/Shortness of Breath, # 60 each, 0 Refills, Maintenance, 06/07/20 12:51:00 EDT, Solution, [facility] #52735, 162.56, cm, 05/23/20 14:31:00 EDT, Height, 77, [...] 2 Refills, Maintenance, 08/30/22 11:09:00 EDT, Gel, [facility] #65606, 1 applic... Start Date: 08/30/22 Status: Ordered benzoyl peroxide 2.5% topical gel 1 application, Topically, 2 times a day, keep away from eyes and mucous membranes. clean affected area before application. Start daily and increase to twice a day if tolerated., # 60 Gm, 3 Refills, Maintenance, 09/08/22 22:51:00 EDT, [facility]... Start Date: 09/08/22 Status: Ordered Biktarvy oral tablet 1 tablet, By Mouth, Daily, # 30 tablet, 12 Refills, Maintenance, 04/17/22 7:54:00 EST, [facility] #03474, 1 tablet By Mouth Daily, 162.56, cm, 04/16/22 16:00:00 EST, Height, 87.6, kg, 10/24/21 8:00:00 EDT, Dry Weight Start Date: 04/17/22 Status: Ordered Biktarvy oral tablet See Instructions, TAKE 1 TABLET BY MOUTH DAILY, # 90 tablet, 0 Refills, Maintenance, 07/15/22 13:50:00 EDT, [facility] #32241, 90, TAKE 1 TABLET BY MOUTH DAILY, [...] 1 Refills, Maintenance, 07/10/21 18:35:00 EDT, Tablet, [facility] #15287, Partial fill upon patient request if the [...] 08/12/22 15:06:00 EDT, Route to Pharmacy Electronically, [facility] #28029, 162.56, cm, 07/30/22 10:55:00 EDT, Height, 79.... Start Date: 08/12/22 Status: Ordered Colace Clear 50 mg oral capsule 1 capsule = 50 mg, By Mouth, 2 times a day, PRN as needed for constipation, # 60 capsule, 0 Refills, Maintenance, 12/05/21 15:09:00 EDT, [facility] #76363, Partial fill upon patient requestif the prescription [...] 3 Refills, Maintenance, 11/04/22 16:35:00 EDT, Tablet, [facility] #37440, 162.56, cm, 10/20/22 7:18:00 EDT, Height, 79.54, kg, 07/30/22 10:55:00 EDT, Dry Weight Start Date: 11/04/22 Status: Ordered ferrous fumarate 324 mg oral tablet 1 tablet = 324 mg, By Mouth, Every other day, # 45 tablet, 0 Refills, Maintenance, 07/31/22 11:19:00 EDT, Tablet, [facility] #54979, Partial fill upon patient request if the [...] Gm, 5 Refills, Maintenance, 07/19/19 15:19:00 EDT, [place], [facility] #13086, 2 sprays Nares, Both Daily in AM,x30 [...] 09/24/22 17:20:00 EDT, Route to Pharmacy Electronically, [facility] #43870, 162.56, cm, 09/17/22 12:56:00 EDT, Heigh... Start [...] # 1 each, Maintenance, covering for [facility] Blood pressure monitor neededto monitor blood [...] 2 Refills, Maintenance, 07/30/22 12:17:00 EDT, Syrup, [facility] #69458, 30 mL By Mouth 4 times a day, 162.56, cm, 07/30/22 10:55:00 EDT,Height, 79.54, kg, 07/30/22 10:55:00 EDT, Dry Weight Start Date: 07/30/22 Status: Ordered losartan 100 mg oral tablet 1 tablet, By Mouth, Daily, # 30 tablet, 5 Refills, [facility] #94495, 162, cm, 10/09/21 16:19:00 EDT, Height, 86.3, kg, 09/29/20 15:30:00 EDT, Dry Weight Start Date: 10/20/21 Status: Ordered meclizine 25 mg oral tablet 1 tablet = 25 mg, By Mouth, 2 times a day, # 30 tablet, 1 Refills, Maintenance, 07/10/21 17:25:00 EDT, Tablet, [facility] #04179, 162, cm, 06/19/21 15:40:00 EDT, Height, 86.3, kg, 09/29/20 15:30:00 EDT, Dry Weight Start Date: 07/10/21 Status: Ordered multivitamin with iron Multiple Vitamins with Iron oral tablet 1 tablet, By Mouth, Daily, # 30 tablet, 11 Refills, Maintenance, 04/17/22 7:51:00 EST, Tablet, [facility] #37286, 1 tablet By Mouth Daily, 162.56, cm, 04/16/22 16:00:00 EST, Height, 87.6, kg, 10/24/21 8:00:00 EDT, Dry Weight Start Date: 04/17/22 Status: Ordered Narcan 4 mg/0.1 mL nasal spray = 4 mg, Inhalation, Once, # 2 each, 1 Refills, Soft Stop, 10/29/20 12:23:00 EDT, [facility] #31251, Partial fill upon patient request if the prescription is for a schedule II opioid drug., 162, cm, 09/29/20 15:30:00 EDT, Height, 86.3, kg, 08... Start Date: 10/29/20 Status: Ordered ondansetron 4 mg oral tablet 1 tablet = 4 mg, By Mouth, Daily, PRN Nausea & Vomiting, # 10 tablet, 3 Refills, Maintenance, 06/25/22 17:28:00 EDT, [facility] #76308, 162.56, cm, 06/25/22 16:16:00 EDT, Height, 87.6, [...] tablet, 11 Refills, Maintenance, 11/30/22 11:14:00EDT, Tablet, [facility] #58570, 162.56, cm, 11/26/22 13:24:00 EDT, Height, 79.54, kg, 07/30/22 10:55:00 EDT, Dry Weight Start Date: 11/30/22 Status: Ordered Senna 8.6 mg oral tablet 1-3 tablet, By Mouth, Daily, for constipation, # 90 tablet, Refills 5, Tot. Refills 5, Maintenance,03/26/20 15:25:00 EST, Route to Pharmacy Electronically, [facility] #[id number] Tablet, 162.56, cm, 03/21/20 15:01:00 EST, Height, [...] 09/24/22 17:20:00 EDT, Route to Pharmacy Electronically, [facility] #42653, 162.56, cm, 09/17/22 12:56:00 EDT, Heigh... Start Date: 09/24/22 Status: Ordered Suboxone 8 mg-2 mg Sublingual Film 2 film, Sublingual, Daily, dissolve under the tongue may fill less, # 28 film, 0 Refills, Maintenance, 12/02/22 18:26:00 EDT, Film, [facility] #85463, 2 film Sublingual Daily,x14 days,Instr:dissolve under the tongue; may fill less, 162.56,... Start Date: 12/02/22 Stop Date: 12/16/22 Status: Ordered SUMAtriptan 25 mg oral tablet 1 tablet = 25 mg, By Mouth, Daily, PRN as needed for migraine headache, may repeat dose after 2 hours up to a maximum of 2, # 6 tablet, 1 Refills, Maintenance, 03/02/20 19:47:00 EST, Tablet, [facility] #89747, 162.56, cm, 01/04/20 9:40:00 ES... 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 is only mutation detected 3death of sister, caring for mother w/ dementia 4repeat screening colonoscopy in 2020 Social History Social History Type Response Smoking Status Former smoker, quit more than 30 days ago entered on: 12/05/21 Sex Patient Care team information Care Team Personnel Name: Kahlil Sun MD Position: [facility] Physician - Primary Care Member Role: PCP Address: Address: [address] [place] [address]- Name: Sharri Prince Position: [facility] PCO Associate Professional Member Role: Lifetime Consulting Provider Name: Rian Kenny MD Position: [facility] Physician - Gastroenterology Med Service: Gastroenterology Member Role: Referring Physician Address: Address: [address] [place] [address], [address] [place], [place] [address] Care Team Related Persons Name: SHANITA MENDOZA Address: [address] [place] [address] Name: SHANITA MENDOZA [facility] Address: home [address] Name: ULICES PEARSON Name: ULICES ESPARZA Address: [place] [address] Name: LALA LI
--- OUTSIDE RECORDS SUMMARY | 2022-12-13 21:36 | XMS_ITS | Continuity of Care Document ---
Author Name Unknown Organization [facility] Address [address] [place] [address]- Care Team Providers Care Dissolver Operator Name Role Phone Kahlil Sun MD Primary Care Physician [place] [facility] [place]19 [facility] [address] [place] [address]- [facility] Attending Physician: Ankit Keller Admitting Physician: AdmAnkit hughes Referring Physician: AdmtrAnkit Allergies, Adverse Reactions, Alerts [...] sublingual film 0.5 each, Sublingual, Daily, [place] [id number] Covering for [place] [id number], # 4 film, 0 Refills, Maintenance, 03/30/19 17:44:00 EST, [facility] #[id number], 0.5 each Sublingual Daily,x7 days,Instr:[place] [id number] Covering for [place] XL258... Start Date: 03/30/19 Stop Date: 04/06/19 Status: Ordered Flonase 50 mcg/inh nasal spray 1 sprays, Nares, Both, 2 times a day, # 1 each, 0 Refills, Maintenance, 05/24/18 16:00:06 EDT, [place], 1 sprays Nares, Both 2 times a [...] 03/12/19 21:36:00 EST, Route to Pharmacy Electronically, [facility] #[id number], dose increase from 5mg,162.56, cm, 03/08/19 14:34:00 EST, Height, 72.3, kg... Start Date: 03/12/19 Status: Ordered loratadine 10 mg oral tablet 10 mg, 1, tablet, By Mouth, Daily, PRN, # 30 tablet, Refills 3, Tot. Refills 3, Maintenance, allergy/itch, 05/12/18 14:45:33 EDT, Route to Pharmacy Electronically, [id number], [facility] Start Date: 05/12/18 Status: Ordered LORazepam [...] 1 Refills, Maintenance, 03/30/19 15:49:00 EST, Tablet, [facility] #[id number], 162.56, cm, 03/08/19 14:34:00 EST, Height, 72.3, [...] 12/05/15 14:17:14, Aerosol, Route to Pharmacy Electronically, [id number], [facility] [address] Start Date: 12/05/15 Status: Ordered Senna 8.6 mg oral tablet 1-3 tablet, By Mouth, Daily, for constipation, # 90 tablet, Refills 5, Tot. Refills 5, Maintenance,02/17/18 15:12:45 EST, Route to Pharmacy Electronically, [id number], [facility] Tablet Start Date: 02/17/18 Status: Ordered [...] 2016 Active Migraine(Confirmed) Active Opioid dependence(Confirmed) Active *[id number]-[facility] Partn renee Saavedra(Confirmed) Active Health care maintenance(Confirmed) [...] tolerance, and QD need over. 2genotype 02/02: [id number] is only mutation detected 3death of sister, caring for mother w/ dementia 4repeat screening colonoscopy in 2020 Social History Social History Type Response Smoking Status Former smoker, quit more than 30 days ago entered on: 05/24/18 Sex
--- OUTSIDE RECORDS SUMMARY | 2022-12-13 21:36 | XMS_ITS | Continuity of Care Document ---
Author Name Unknown Organization 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 [address]- Attending Physician: Vida Goldsmith NP Admitting Physician: [...] or observed. 2Result Comment: #2, [facility] 3Result Comment: [facility] 4Result Comment: pharmacy 5Location History: [facility] 6Admin Note: vis 08/31/11 7Admin Note: ADMIN.BY RN 8Result Comment: [facility] 9Admin Note: Admin. by RN 10Admin Note: Admin. by RN 11Admin Note: Admin. by RN 12Admin Note: vis 06/15/15 13Admin Note: dose #6 (3rd in 2nd series) 14Admin Note: dose #5 15Admin Note: #3 16Admin Note: LITO sanofi-pasteur 17Admin Note: ADMIN BEN, MANAGER CULTURE 18Admin Note: BY LEXI Agudelo 19Admin Note: [...] tablet, 5 Refills, Maintenance, 01/08/21 18:41:00 EST, [facility] #[id number], 162, cm, 12/17/20 23:19:00 EDT, Height, 86.3, kg, 09/29/20 15:30:00 EDT, Dry Weight Start Date: 01/08/21 Stop Date: 02/07/21 Status: Ordered Albuterol (Eqv-ProAir HFA) 90 mcg/inh inhalation aerosol 2 puffs, Inhalation, Every 4 hours, PRN NEEDED FOR WHEEZING/SHORTNESS OF BREATH, USE WITH SPACERCHAMBER, # 8.5 Gm, 5 Refills, [facility] #[id number], 16, INHALE 2 PUFFS INTO LUNGS EVERY 4 HOURS NEEDED FOR WHEEZING/SHORTNESS OF BREATH. USE... Start Date: 11/13/20 Status: Ordered albuterol 0.083% inhalation solution 3 mL = 2.5 mg, Inhalation, Every 6 hours, PRN Wheezing/Shortness of Breath, # 60 each, 0 Refills, Maintenance, 06/07/20 12:51:00 EDT, Solution, [facility] #[id number], 162.56, cm, 05/23/20 14:31:00 EDT, Height, 77, [...] 2 Refills, Maintenance, 08/30/22 11:09:00 EDT, Gel, [facility] #[id number], 1 applic... Start Date: 08/30/22 Status: Ordered benzoyl peroxide 2.5% topical gel 1 application, Topically, 2 times a day, keep away from eyes and mucous membranes. clean affected area before application. Start daily and increase to twice a day if tolerated., # 60 Gm, 3 Refills, Maintenance, 09/08/22 22:51:00 EDT, [facility]... Start Date: 09/08/22 Status: Ordered Biktarvy oral tablet 1 tablet, By Mouth, Daily, # 30 tablet, 12 Refills, Maintenance, 04/17/22 7:54:00 EST, [facility] #[id number], 1 tablet By Mouth Daily, 162.56, cm, 04/16/22 16:00:00 EST, Height, 87.6, kg, 10/24/21 8:00:00 EDT, Dry Weight Start Date: 04/17/22 Status: Ordered Biktarvy oral tablet See Instructions, TAKE 1 TABLET BY MOUTH DAILY, # 90 tablet, 0 Refills, Maintenance, 07/15/22 13:50:00 EDT, [facility] #[id number], 90, TAKE 1 TABLET BY MOUTH DAILY, [...] 1 Refills, Maintenance, 07/10/21 18:35:00 EDT, Tablet, [facility] #73860, Partial fill upon patient request if the [...] 08/12/22 15:06:00 EDT, Route to Pharmacy Electronically, [facility] #14577, 162.56, cm, 07/30/22 10:55:00 EDT, Height, 79.... Start Date: 08/12/22 Status: Ordered Colace Clear 50 mg oral capsule 1 capsule = 50 mg, By Mouth, 2 times a day, PRN as needed for constipation, # 60 capsule, 0 Refills, Maintenance, 12/05/21 15:09:00 EDT, [facility] #40604, Partial fill upon patient requestif the prescription is for a schedule II opioid nhi... Start Date: 12/05/21 Status: Ordered diclofenac 1% topical gel = 2 Gm, Topically, 4 times a day, PRN for pain, not to exceed: 10 gm/day, # 100 Gm, 1 Refills, Maintenance, 05/29/21 16:52:00 EDT, Gel, [facility], Partial fill upon patient [...] 3 Refills, Maintenance, 11/04/22 16:35:00 EDT, Tablet, [facility] #11709, 162.56, cm, 10/20/22 7:18:00 EDT, Height, 79.54, kg, 07/30/22 10:55:00 EDT, Dry Weight Start Date: 11/04/22 Status: Ordered ferrous fumarate 324 mg oral tablet 1 tablet = 324 mg, By Mouth, Every other day, # 45 tablet, 0 Refills, Maintenance, 07/31/22 11:19:00 EDT, [facility] #11072, Partial fill upon patient request if the [...] Gm, 5 Refills, Maintenance, 07/19/19 15:19:00 EDT, [place], [facility] #67758, 2 sprays Nares, Both Daily in AM,x30 [...] 09/24/22 17:20:00 EDT, Route to Pharmacy Electronically, [facility] #56278, 162.56, cm, 09/17/22 12:56:00 EDT, [facility]... Start Date: 09/24/22 Status: Ordered Glucose Monitor [...] Instructions, # 1 each, Maintenance, covering for [facility] Blood pressure monitor neededto monitor blood [...] 2 Refills, Maintenance, 07/30/22 12:17:00 EDT, Syrup, [facility] #25710, 30 mL By Mouth 4 times a day, 162.56, cm, 07/30/22 10:55:00 EDT,Height, 79.54, kg, 07/30/22 10:55:00 EDT, Dry Weight Start Date: 07/30/22 Status: Ordered losartan 100 mg oral tablet 1 tablet, By Mouth, Daily, # 30 tablet, 5 Refills, [facility] #81056, 162, cm, 10/09/21 16:19:00 EDT, Height, 86.3, kg, 09/29/20 15:30:00 EDT, Dry Weight Start Date: 10/20/21 Status: Ordered meclizine 25 mg oral tablet 1 tablet = 25 mg, By Mouth, 2 times a day, # 30 tablet, 1 Refills, Maintenance, 07/10/21 17:25:00 EDT, Tablet, [facility] #15617, 162, cm, 06/19/21 15:40:00 EDT, Height, 86.3, kg, 09/29/20 15:30:00 EDT, Dry Weight Start Date: 07/10/21 Status: Ordered multivitamin with iron Multiple Vitamins with Iron oral tablet 1 tablet, By Mouth, Daily, # 30 tablet, 11 Refills, Maintenance, 04/17/22 7:51:00 EST, Tablet, [facility] #20300, 1 tablet By Mouth Daily, 162.56, cm, 04/16/22 16:00:00 EST, Height, 87.6, kg, 10/24/21 8:00:00 EDT, Dry Weight Start Date: 04/17/22 Status: Ordered Narcan 4 mg/0.1 mL nasal spray = 4 mg, Inhalation, Once, # 2 each, 1 Refills, Soft Stop, 10/29/20 12:23:00 EDT, [facility] #[id number], Partial fill upon patient request if the prescription is for a schedule II opioid drug., 162, cm, 09/29/20 15:30:00 EDT, Height, 86.3, kg, 08... Start Date: 10/29/20 Status: Ordered ondansetron 4 mg oral tablet 1 tablet = 4 mg, By Mouth, Daily, PRN Nausea & Vomiting, # 10 tablet, 3 Refills, Maintenance, 06/25/22 17:28:00 EDT, [facility] #24692, 162.56, cm, 06/25/22 16:16:00 EDT, Height, 87.6, [...] 2 Refills, Maintenance, 08/21/22 17:50:00 EDT, Tablet, [facility] #35807, this is correct dose. 200mg Rx just sent by mistake., 162.56, cm, 08/20/22 13:54:00 EDT, Height, 79.54, kg, 06... Start Date: 08/21/22 Status: Ordered Senna 8.6 mg oral tablet 1-3 tablet, By Mouth, Daily, for constipation, # 90 tablet, Refills 5, Tot. Refills 5, Maintenance,03/26/20 15:25:00 EST, Route to Pharmacy Electronically, [facility] #[id number] Tablet, 162.56, cm, 03/21/20 15:01:00 EST, Height, [...] 09/24/22 17:20:00 EDT, Route to Pharmacy Electronically, [facility] #63968, 162.56, cm, 09/17/22 12:56:00 EDT, [facility]... Start Date: 09/24/22 Status: Ordered Suboxone 8 mg-2 mg Sublingual Film 2 film, Sublingual, Daily, [id number] [place] dissolve under the tongue may fill less due 11/25/2022,# 28 film, 0 Refills, Maintenance, 11/21/22 9:48:00 EDT, Film, [facility], 2 film Sublingual Daily,x14 days,Instr:[id number] Cathy... Start Date: 11/21/22 Stop Date: 12/05/22 Status: Ordered SUMAtriptan 25 mg oral tablet 1 tablet = 25 mg, By Mouth, Daily, PRN as needed for migraine headache, may repeat dose after 2 hours up to a maximum of 2, # 6 tablet, 1 Refills, Maintenance, 03/02/20 19:47:00 EST, Tablet, [facility] #12714, 162.56, cm, 01/04/20 9:40:00 ES... 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 2genotype 02/02: [id number] is only mutation detected 3death of sister, caring for mother w/ dementia 4repeat screening colonoscopy in 2020 Social History Social History Type Response Smoking Status Former smoker, quit more than 30 days ago entered on: 12/05/21 Sex Patient Care team information Care Team Personnel Name: Kahlil Sun MD Position: [facility] Physician - Primary Care Member Role: PCP Address: Address: [address] [place] [address] Name: Sharri Prince Position: [facility] PCO Associate Professional Member Role: Lifetime Consulting Provider Care Team Related Persons Name: SHANITA MENDOZA Address: home [address] [place] [address] Name: SHANITA MENDOZA [facility] Address: home [address] Name: ULICES PEARSON Name: ULICES ESPARZA Address: [place] [address] Name: LALA LI
--- OUTSIDE RECORDS SUMMARY | 2022-12-13 21:36 | XMS_ITS | Continuity of Care Document ---
Author Name Unknown Organization [facility] Address [address] [place] [address]- Care Team Providers Care Director Medical Surgical Name Role Phone Kahlil Sun MD Primary Care Physician [phone] [place] [facility] [place]10[place]21 - 01/09/22 [facility] [address]- [place] Allergies, Adverse Reactions, Alerts Substance Reaction [...] [facility] 4Result Comment: pharmacy 5Location History: [facility] 6Admin Note: vis 08/31/11 7Admin Note: ADMIN.BY RN 8Result Comment: [facility] 9Admin Note: Admin. by RN 10Admin Note: Admin. by RN 11Admin Note: Admin. by RN 12Admin Note: vis 06/15/15 13Admin Note: dose #6 (3rd in 2nd series) 14Admin Note: dose #5 15Admin Note: #3 16Admin Note: LITO sanofi-pasteur 17Admin Note: ADMIN BEN, SECY 18Admin Note: BY JEA R.N 19Admin Note: [...] 5 Refills, Maintenance, 12/05/21 14:43:00EDT, CR Tablet, [facility] #26302, Partial fill upon patient request if the prescription is for a schedule II opioid drug., 162.56, cm, 12/05... Start Date: 12/05/21 Status: Ordered acyclovir 400 mg oral tablet 1 tablet = 400 mg, By Mouth, 2 times a day, # 10 tablet, 5 Refills, Maintenance, 01/08/21 18:41:00 EST, [facility] #[id number], 162, cm, 12/17/20 23:19:00 EDT, Height, 86.3, kg, 09/29/20 15:30:00 EDT, Dry Weight Start Date: 01/08/21 Stop Date: 02/07/21 Status: Ordered Albuterol (Eqv-ProAir HFA) 90 mcg/inh inhalation aerosol 2 puffs, Inhalation, Every 4 hours, PRN NEEDED FOR WHEEZING/SHORTNESS OF BREATH, USE WITH SPACERCHAMBER, # 8.5 Gm, 5 Refills, [facility] #36772, 16, INHALE 2 PUFFS INTO LUNGS EVERY 4 HOURS NEEDED FOR WHEEZING/SHORTNESS OF BREATH. USE... Start Date: 11/13/20 Status: Ordered albuterol 0.083% inhalation solution 3 mL = 2.5 mg, Inhalation, Every 6 hours, PRN Wheezing/Shortness of Breath, # 60 each, 0 Refills, Maintenance, 06/07/20 12:51:00 EDT, Solution, [facility] #[id number], 162.56, cm, 05/23/20 14:31:00 EDT, Height, 77, [...] 01/04/22 19:11:00 EST, Route to Pharmacy Electronically, [facility] #[id number], 162.56, cm, 11/0... Start Date: 01/04/22 Status: Ordered Biktarvy oral tablet 1 tablet, By Mouth, Daily, # 90 tablet, 3 Refills, Maintenance, 06/13/21 22:19:00 EDT, [facility] #[id number], 1 tablet By Mouth Daily, 162, cm, [...] 1 Refills, Maintenance, 07/10/21 18:35:00 EDT, Tablet, [facility] #[id number], Partial fill upon patient request if the prescription is for a schedule II opioid drug., 162, cm, 06/19/21 15:40:00 EDT... Start Date: 07/10/21 Status: Ordered cloNIDine 0.1 mg oral tablet 1, tablet, By Mouth, 3 times a day, PRN, # 270 tablet, Refills 0, Maintenance, NEEDED FOR ANXIETY, 01/01/22 10:42:00 EDT, Route to Pharmacy Electronically, [facility] #[id number], 162.56, cm,12/05/21 14:12:00 EDT, Height, 87.6, kg, 10/24/21 8... Start Date: 01/01/22 Status: Ordered Colace Clear 50 mg oral capsule 1 capsule = 50 mg, By Mouth, 2 times a day, PRN as needed for constipation, # 60 capsule, 0 Refills, Maintenance, 12/05/21 15:09:00 EDT, [facility] #[id number], Partial fill upon patient requestif the prescription is for a schedule II opioid nhi... Start Date: 12/05/21 Status: Ordered diclofenac 1% topical gel = 2 Gm, Topically, 4 times a day, PRN for pain, not to exceed: 10 gm/day, # 100 Gm, 1 Refills, Maintenance, 05/29/21 16:52:00 EDT, Gel, [facility], Partial fill upon patient request if the prescription is for a schedule II opioid... Start Date: 05/29/21 Status: Ordered Dulera 200 mcg-5 mcg/inh inhalation aerosol 2 puffs, Inhalation, 2 times a day, # 1 each, 3 Refills, Maintenance, 01/28/21 16:44:00 EST, Aerosol, [facility], STOP FLOVENT, 2 puffs Inhalation 2 times a day,x30 days, 162, cm,01/28/21 16:02:00 EST, Height, 86.3, kg, 09/29/20 1... Start Date: 01/28/21 Stop Date: 05/28/21 Status: Ordered escitalopram 10 mg oral tablet 1 tablet = 10 mg, By Mouth, Daily, # 30 tablet, 11 Refills, Maintenance, 07/31/21 17:50:00 EDT, Tablet, [facility] #[id number], Partial fill upon patient request if the [...] Gm, 5 Refills, Maintenance, 07/19/19 15:19:00 EDT, [place], [facility] #[id number], 2 sprays Nares, Both Daily in AM,x30 [...] Replace Required Details, Route to Pharmacy Electronically, [facility] #67264, 162.56, cm,... Start Date: 11/27/21 Status: Ordered [...] Instructions, # 1 each, Maintenance, covering for [facility] Blood pressure monitor neededto monitor blood pressure DX: hypertension, 07/11/18 17:28:42 EDT, Compound Start Date: 07/11/18 Status: Ordered humidifier humidifier, See Instructions, # 1 each, Refills 0, Tot. Refills 0, Maintenance, use as directed forchronic sinusitis J32, 04/09/17 14:21:37 EST, Compound Start Date: 04/09/17 Status: Ordered losartan 100 mg oral tablet 1 tablet, By Mouth, Daily, # 30 tablet, 5 Refills, [facility] #40697, 162, cm, 10/09/21 16:19:00 EDT, Height, 86.3, kg, 09/29/20 15:30:00 EDT, Dry Weight Start Date: 10/20/21 Status: Ordered meclizine 25 mg oral tablet 1 tablet = 25 mg, By Mouth, 2 times a day, # 30 tablet, 1 Refills, Maintenance, 07/10/21 17:25:00 EDT, Tablet, [facility] #58022, 162, cm, 06/19/21 15:40:00 EDT, Height, 86.3, kg, 09/29/20 15:30:00 EDT, Dry Weight Start Date: 07/10/21 Status: Ordered multivitamin with iron Multiple Vitamins with Iron oral tablet 1 tablet, By Mouth, Daily, # 30 tablet, 11 Refills, Maintenance, 09/06/21 19:08:00 EDT, Tablet, [facility] #45572, 1 tablet By Mouth Daily, 162, cm, 07/31/21 16:00:00 EDT, Height, 86.3, kg,09/29/20 15:30:00 EDT, Dry Weight Start Date: 09/06/21 Status: Ordered Narcan 4 mg/0.1 mL nasal spray = 4 mg, Inhalation, Once, # 2 each, 1 Refills, Soft Stop, 10/29/20 12:23:00 EDT, [facility] #[id number], Partial fill upon patient request if the prescription is for a schedule II opioid drug., 162, cm, 09/29/20 15:30:00 EDT, Height, 86.3, kg, 08... Start Date: 10/29/20 Status: Ordered ondansetron 4 mg oral tablet 1 tablet = 4 mg, By Mouth, Daily, PRN Nausea & Vomiting, # 10 tablet, 3 Refills, Maintenance, 10/08/21 22:17:00 EDT, [facility] #[id number], 162, cm, 10/09/21 16:19:00 EDT, Height, 86.3, [...] each, 0 Refills, Maintenance, 06/04/20 16:46:00 EDT, [facility] #[id number], OK to sub for any gallon prep, used as directed, 162.56, cm, 05/23/20 14:31:00 EDT, Height, 77, kg, 03/21/20 15:04:00 EST, Dry We... Start Date: 06/04/20 Status: Ordered Senna 8.6 mg oral tablet 1-3 tablet, By Mouth, Daily, for constipation, # 90 tablet, Refills 5, Tot. Refills 5, Maintenance,03/26/20 15:25:00 EST, Route to Pharmacy Electronically, [facility] #44739 Tablet, 162.56, cm, 03/21/20 15:01:00 EST, Height, [...] tablet, 2 Refills, Maintenance, 12/23/21 16:29:00 EDT, [facility] #[id number], 162.56, cm, 12/05/21 14:12:00 EDT, Height, 87.6, kg, 10/24/21 8:00:00 EDT, Dry Weight Start Date: 12/23/21 Status: Ordered Suboxone 8 mg-2 mg Sublingual Film 2.5 film, Sublingual, Daily, dissolve under the tongue may fill less due 01/02/2022 Dino [id number], # 70 film, 0 Refills, Maintenance, 12/31/21 7:56:00 EDT, Film, [facility] #[id number], 2.5 film Sublingual Daily,x28 days,Instr:dissolve unde... Start Date: 12/31/21 Stop Date: 01/28/22 Status: Ordered Suboxone 8 mg-2 mg Sublingual Film 2.5 film, Sublingual, Daily, dissolve under the tongue increase in dose Iveth [id number] coveringfor Dino baires on/after 08/22/2021, # 35 film, 0 Refills, Maintenance, 08/22/21 9:27:00 EDT, Film,[facility], 2.5 film Subli... Start Date: 08/22/21 Stop Date: 09/05/21 Status: Ordered SUMAtriptan 25 mg oral tablet 1 tablet = 25 mg, By Mouth, Daily, PRN as needed for migraine headache, may repeat dose after 2 hours up to a maximum of 2, # 6 tablet, 1 Refills, Maintenance, 03/02/20 19:47:00 EST, Tablet, [facility] #54097, 162.56, cm, 01/04/20 9:40:00 ES... Start Date: 03/02/20 Status: Ordered zolpidem 5 mg oral tablet 1 tablet = 5 mg, By Mouth, Daily at bedtime, PRN as needed for sleep, covering for Dr. Sun, # 30 tablet, 1 Refills, Maintenance, 12/26/21 13:13:00 EDT, [facility] #24320, 162.56, cm, 12/05/21 14:12:00 EDT, Height, 87.6, [...] disorder Confirmed Active Opioid dependence Confirmed Active *[id number] [employer] April Saavedra Confirmed Active Health care [...] tolerance, and QD need over. 2genotype 02/02: [id number] is only mutation detected 3death of sister, caring for mother w/ dementia 4repeat screening colonoscopy in 2020 Social History Social History Type Response Smoking Status Former smoker, quit more than 30 days ago entered on: 12/05/21 Sex Patient Care team information Care Team Personnel Name: Kahlil Sun MD Position: [facility] Primary Care Physician Member Role: PCP Address: Address: [address] [place] [address] Name: Sharri Prince Position: [facility] PCO Associate Professional Member Role: [employer] Consult[employer] Provider Care Team Related Persons Name: SHANITA MENDOZA Address: [address] [place] [address] Name: SHANITA MENDOZA BRITTNY Address: home [address] Name: ULICES PEARSON Name: ULICES ESPARZA Address: [place] [address] Name: LALA LI
--- OUTSIDE RECORDS SUMMARY | 2022-12-13 21:36 | XMS_ITS | Continuity of Care Document ---
Author Name Unknown Organization [facility] Address [address] [place] [address]- Care Team Providers Care Freelance Patternmaker Name Role Phone Kahlil Sun MD Primary Care Physician [phone] Encounter [facility] [place] Date(s): 05/01/21 - 05/31/21 [facility] [address] [place] [address]- Attending Physician: Admellen, Ar8 Admitting Physician: Admtr, Ar8 Referring Physician: [...] [facility] 4Result Comment: pharmacy 5Location History: [facility] 6Admin Note: vis 08/31/11 7Admin Note: ADMIN.BY RN 8Result Comment: [facility] 9Admin Note: Admin. by RN 10Admin Note: Admin. by RN 11Admin Note: Admin. by RN 12Admin Note: vis 06/15/15 13Admin Note: dose #6 (3rd in 2nd series) 14Admin Note: dose #5 15Admin Note: #3 16Admin Note: LITO sanofi-pasteur 17Admin Note: ADMIN BEN, BEAD CUTTER 18Admin Note: BY LEXI Agudelo 19Admin [...] 1 Refills, Maintenance, 09/12/20 16:18:00EDT, CR Tablet, [facility] #96941, Partial fill upon patient request if the prescription is for a schedule II opioid drug., 162, cm, 09/12/20... Start Date: 09/12/20 Status: Ordered acyclovir 400 mg oral tablet 1 tablet = 400 mg, By Mouth, 2 times a day, # 10 tablet, 5 Refills, Maintenance, 01/08/21 18:41:00 EST, [facility] #04799, 162, cm, 12/17/20 23:19:00 EDT, Height, 86.3, kg, 09/29/20 15:30:00 EDT, Dry Weight Start Date: 01/08/21 Stop Date: 02/07/21 Status: Ordered Albuterol (Eqv-ProAir HFA) 90 mcg/inh inhalation aerosol 2 puffs, Inhalation, Every 4 hours, PRN NEEDED FOR WHEEZING/SHORTNESS OF BREATH, USE WITH SPACERCHAMBER, # 8.5 Gm, 5 Refills, [facility] #76848, 16, INHALE 2 PUFFS INTO LUNGS EVERY 4 HOURS NEEDED FOR WHEEZING/SHORTNESS OF BREATH. USE... Start Date: 11/13/20 Status: Ordered albuterol 0.083% inhalation solution 3 mL = 2.5 mg, Inhalation, Every 6 hours, PRN Wheezing/Shortness of Breath, # 60 each, 0 Refills, Maintenance, 06/07/20 12:51:00 EDT, Solution, [facility] #[id number], 162.56, cm, 05/23/20 14:31:00 EDT, Height, 77, [...] tablet, 3 Refills, Maintenance, 03/02/20 19:50:00 EST, [facility] #99334, 1 tablet By Mouth Daily, 162.56, cm, [...] 2 Refills, Maintenance, 06/29/19 16:02:00 EDT, Tablet, [facility] #93568, 162.56, cm, 05/03/19 16:30:00 EST, Height, 72.3, kg, 09/26/18 16:01:00 EDT, Dry Weight Start Date: 06/29/19 Status: Ordered cloNIDine 0.1 mg oral tablet 0.1 mg, 1, tablet, By Mouth, 3 times a day, as needed for anxiety, # 25 tablet, Refills 0, Tot. Refills 0, Maintenance, 10/10/19 21:36:00 EDT, Route to Pharmacy Electronically, [facility] #11006, 162.56, cm, 10/09/19 10:36:00 EDT, Height, 72... [...] 11 Refills, Maintenance, 05/07/21 9:48:00 EST, Tablet, [facility] #52673, Partial fill upon patient request if the prescription is for a schedule II opioid drug., 162, cm, 05/07/21 8:46:00 EST,... Start Date: 05/07/21 Status: Ordered Flonase 50 mcg/inh nasal spray 2 sprays, Nares, Both, Daily in AM, # 16 Gm, 5 Refills, Maintenance, 07/19/19 15:19:00 EDT, [place], [facility] #63665, 2 sprays Nares, Both Daily in AM,x30 days, 162.56, cm, 05/03/19 16:30:00 EST, Height, 72.3, kg, 09/26/18 16:01:00 EDT, Dry... Start Date: 07/19/19 Stop Date: 01/15/20 Status: Ordered fluconazole 150 mg oral tablet 1 tablet = 150 mg, By Mouth, Once, # 1 tablet, 1 Refills, Soft Stop, 01/08/21 19:37:00 EST, Tablet,[facility] #[id number], 162, cm, 12/17/20 23:19:00 EDT, Height, 86.3, [...] 04/24/21 12:37:00 EST, Route to Pharmacy Electronically, [facility] #[id number], STOP HCTZ, 162, cm, 03/24/21 18:41:00 EST, [...] Instructions, # 1 each, Maintenance, covering for [facility] Blood pressure monitor neededto monitor blood [...] 05/12/18 14:45:33 EDT, Route to Pharmacy Electronically, [id number], [facility] Start Date: 05/12/18 Status: Ordered LORazepam 0.5 mg oral tablet 0.5 tablet = 0.25 mg, By Mouth, 2 times a day, PRN as needed for anxiety, # 20 tablet, 1 Refills, Maintenance, 05/16/19 23:11:00 EDT, Tablet, [facility] #05783, 162.56, cm, 05/03/19 16:30:00 EST, Height, 72.3, kg, 09/26/18 16:01:00 EDT, Dry... Start Date: 05/16/19 Status: Ordered losartan 100 mg oral tablet 1 tablet, By Mouth, Daily, # 30 tablet, 5 Refills, Maintenance, 09/24/20 16:00:00 EDT, [facility] #[id number], 162, cm, 09/19/20 15:59:00 EDT, Height, 82.1, kg, 06/08/20 17:25:00 EDT, Dry Weight Start Date: 09/24/20 Status: Ordered meclizine 25 mg oral tablet 1 tablet = 25 mg, By Mouth, 2 times a day, # 30 tablet, 1 Refills, Maintenance, 03/30/19 15:49:00 EST, Tablet, [facility] #[id number], 162.56, cm, 03/08/19 14:34:00 EST, Height, 72.3, kg, 09/26/18 16:01:00 EDT, Dry Weight Start Date: 03/30/19 Status: Ordered multivitamin with iron Multiple Vitamins with Iron oral tablet 1 tablet, By Mouth, Daily, # 30 tablet, 11 Refills, Maintenance, 05/07/21 9:45:00 EST, Tablet, [facility] #[id number], Partial fill upon patient request if the prescription is for a schedule II opioid drug., 1 tablet By Mouth Daily, 162, cm, 0... Start Date: 05/07/21 Status: Ordered Narcan 4 mg/0.1 mL nasal spray = 4 mg, Inhalation, Once, # 2 each, 1 Refills, Soft Stop, 10/29/20 12:23:00 EDT, [facility] #[id number], Partial fill upon patient request if the [...] each, 0 Refills, Maintenance, 06/04/20 16:46:00 EDT, [facility] #[id number], OK to sub for any gallon prep, used as directed, 162.56, cm, 05/23/20 14:31:00 EDT, Height, 77, kg, 03/21/20 15:04:00 EST, Dry We... Start Date: 06/04/20 Status: Ordered predniSONE 50 mg oral tablet 1 tablet = 50 mg, By Mouth, Daily, # 7 tablet, 0 Refills, Maintenance, 01/28/21 16:37:00 EST, Tablet, [facility], Partial fill upon patient request if the prescription is for a schedule II opioid drug., 162, cm, 01/28/21 16:02:00 E... Start Date: 01/28/21 Stop Date: 02/04/21 Status: Ordered Senna 8.6 mg oral tablet 1-3 tablet, By Mouth, Daily, for constipation, # 90 tablet, Refills 5, Tot. Refills 5, Maintenance,03/26/20 15:25:00 EST, Route to Pharmacy Electronically, [facility] #45522 Tablet, 162.56, cm, 03/21/20 15:01:00 EST, Height, [...] 5 Refills, Maintenance, 04/24/21 12:36:00 EST, Tablet, [facility] #93742, STOP HCTZ, 162, cm, 03/24/21 18:41:00 EST, [...] under the tongue increase in dose Dino [id number] due on/after 05/29/2021, # 35 film, 0 Refills, Maintenance, 05/29/21 13:16:00 EDT, Film, [facility], 2.5 film Sublingual Daily,Instr:diss... Start Date: 05/29/21 Status: Ordered SUMAtriptan 25 mg oral tablet 1 tablet = 25 mg, By Mouth, Daily, PRN as needed for migraine headache, may repeat dose after 2 hours up to a maximum of 2, # 6 tablet, 1 Refills, Maintenance, 03/02/20 19:47:00 EST, Tablet, [facility] #[id number], 162.56, cm, 01/04/20 9:40:00 ES... Start Date: 03/02/20 Status: Ordered Zofran 4 mg oral tablet 1 tablet = 4 mg, By Mouth, 2 times a day, PRN Nausea & Vomiting, # 10 tablet, 0 Refills, Maintenance, 05/01/21 1:24:00 EST, Tablet, [facility] #[id number], 162, cm, 03/24/21 18:41:00 EST, Height, 86.3, kg, 09/29/20 15:30:00 EDT, Dry Weight Start Date: 05/01/21 Status: Ordered zolpidem 5 mg oral tablet 1 tablet = 5 mg, By Mouth, Daily at bedtime, PRN as needed for sleep, # 20 tablet, 0 Refills, Acute06/28/21 16:47:00 EDT, 05/29/21 16:45:00 EDT, [facility], Partial fill upon patient request if the prescription is for a schedule I... Start Date: 05/29/21 Stop Date: 06/28/21 Status: Ordered Problem List Condition [...] Obese class II(Confirmed) Active Opioid dependence(Confirmed) Active *[id number] Care Partn er April Saavedra(Confirmed) Active Health [...] tolerance, and QD need over. 2genotype 02/02: [id number] is only mutation detected 3death of sister, [...]
--- OUTSIDE RECORDS SUMMARY | 2022-12-13 21:36 | XMS_ITS | Continuity of Care Document ---
Author Name Unknown Organization [facility] Address [address] [place] [address]- Care Team Providers Care Technology Assistant Name Role Phone Kahlil Sun MD Primary Care Physician Encounter [facility] Date(s): 06/17/20 - 07/17/20 [facility] [address] [place] [address]- Allergies, Adverse Reactions, Alerts Substance Reaction Severity [...] (Td) 03/10/01 Given 1Result Comment: #2, [facility] 2Result Comment: [facility] 3Result Comment: [facility] 4Result Comment: pharmacy 5Location History[facility] [...] 0 Refills, Maintenance, 06/07/20 12:51:00 EDT, Solution, [facility] #45936, 162.56, cm, 05/23/20 14:31:00 EDT, Height, 77, [...] tablet, 3 Refills, Maintenance, 03/02/20 19:50:00 EST, [facility] #94710, 1 tablet By Mouth Daily, 162.56, cm, 01/04/20 9:40:00 EST, Height, 72.3, kg, 09/26/18 16:01:00 EDT, Dry Weight Start Date: 03/02/20 Status: Ordered Blood Pressure Meter Blood Pressure Meter, See Instructions, # 1 each, Refills 0, Tot. Refills 0, Maintenance, Use for, 07/11/18 16:11:47 EDT, Compound Start Date: 07/11/18 Status: Ordered buprenorphine-naloxone 2 mg-0.5 mg sublingual film 1 film, Sublingual, Daily, [facility] [id number], # 14 film, 0 Refills, Maintenance, 06/17/20 16:56:00 EDT, [facility] #[id number], Partial fill on request., 1 film Sublingual Daily,Instr:Renner [id number], 163, cm, 06/08/20 17:25:00 EDT, Height, 82.... Start Date: 06/17/20 Status: Ordered buprenorphine-naloxone 2 mg-0.5 mg sublingual film 0.25 each, Sublingual, Daily, [facility] [id number], # 8 film, 0 Refills, Maintenance, 12/15/19 19:00:00 EDT, [facility] #54089, Partial fill on request., 0.25 each Sublingual Daily,Instr:Dino [id number], 162.56, cm, 10/09/19 10:36:00 EDT, Hei... Start Date: 12/15/19 Status: Ordered cetirizine 10 mg oral tablet 1 tablet = 10 mg, By Mouth, Daily, For allergies., # 30 tablet, 2 Refills, Maintenance, 06/29/19 16:02:00 EDT, Tablet, [facility] #51335, 162.56, cm, 05/03/19 16:30:00 EST, Height, 72.3, kg, 09/26/18 16:01:00 EDT, Dry Weight Start Date: 06/29/19 Status: Ordered cloNIDine 0.1 mg oral tablet 0.1 mg, 1, tablet, By Mouth, 3 times a day, as needed for anxiety, # 25 tablet, Refills 0, Tot. Refills 0, Maintenance, 10/10/19 21:36:00 EDT, Route to Pharmacy Electronically, [facility] #09452, 162.56, cm, 10/09/19 10:36:00 EDT, Height, 72... [...] 5 Refills, Maintenance, 07/19/19 15:19:00 EDT, [place], [facility] #45578, 2 sprays Nares, Both Daily in AM,x30 days, 162.56, cm, 05/03/19 16:30:00 EST, Height, 72.3, kg, 09/26/18 16:01:00 EDT, Dry... Start Date: 07/19/19 Stop Date: 01/15/20 Status: Ordered Flovent HFA 44 mcg/inh inhalation aerosol 1 puffs, Inhalation, 2 times a day, # 1 each, 5 Refills, Maintenance, 06/07/20 12:52:00 EDT, Aerosol, [facility] #01451, 162.56, cm, 05/23/20 14:31:00 EDT, Height, 77, [...] 3 Refills, Maintenance, 03/02/20 19:48:00 EST, Tablet, [facility] #17946, 30 day supply preferred for present, 162.56, [...] 05/12/18 14:45:33 EDT, Route to Pharmacy Electronically, [id number], [facility] Start Date: 05/12/18 Status: Ordered LORazepam 0.5 mg oral tablet 0.5 tablet = 0.25 mg, By Mouth, 2 times a day, PRN as needed for anxiety, # 20 tablet, 1 Refills, Maintenance, 05/16/19 23:11:00 EDT, Tablet, [facility] #23328, 162.56, cm, 05/03/19 16:30:00 EST, Height, 72.3, kg, 09/26/18 16:01:00 EDT, Dry... Start Date: 05/16/19 Status: Ordered losartan 100 mg oral tablet 1 tablet = 100 mg, By Mouth, Daily, # 30 tablet, 2 Refills, Maintenance, 06/26/20 8:47:00 EDT, Tablet, [facility] #91083, 162, cm, 06/19/20 8:04:00 EDT, Height, 82.1, kg, 06/08/20 17:25:00 EDT, Dry Weight Start Date: 06/26/20 Status: Ordered meclizine 25 mg oral tablet 1 tablet = 25 mg, By Mouth, 2 times a day, # 30 tablet, 1 Refills, Maintenance, 03/30/19 15:49:00 EST, Tablet, [facility] #16280, 162.56, cm, 03/08/19 14:34:00 EST, Height, 72.3, [...] each, 0 Refills, Maintenance, 06/04/20 16:46:00 EDT, [facility] #60538, OK to sub for any gallon prep, [...] 12:51:00 EDT, Aerosol, Route to Pharmacy Electronically, [id number], [facility] #80961, 1... Start Date: 06/07/20 Status: Ordered Senna 8.6 mg oral tablet 1-3 tablet, By Mouth, Daily, for constipation, # 90 tablet, Refills 5, Tot. Refills 5, Maintenance,03/26/20 15:25:00 EST, Route to Pharmacy Electronically, [facility] #[id number] Tablet, 162.56, cm, 03/21/20 15:01:00 EST, Height, 77, kg, ... Start Date: 03/26/20 Status: Ordered Spacer for inhalers Spacer for inhalers, See Instructions, # 1 each, Refills 0, Tot. Refills 0, Maintenance, Use with inhalers as directed. Swedish., 06/07/19 15:07:00 EDT, Compound, 162.56, cm, 05/03/19 16:30:00 EST, Height, 72.3, kg, 09/26/18 16:01:00 EDT, Dry Weight Start Date: 06/07/19 Status: Ordered SUMAtriptan 25 mg oral tablet 1 tablet = 25 mg, By Mouth, Daily, PRN as needed for migraine headache, may repeat dose after 2 hours up to a maximum of 2, # 6 tablet, 1 Refills, Maintenance, 03/02/20 19:47:00 EST, Tablet, [facility] #01847, 162.56, cm, 01/04/20 9:40:00 ES... Start Date: 03/02/20 Status: Ordered Zofran 4 mg oral tablet 1 tablet = 4 mg, By Mouth, 2 times a day, PRN Nausea & Vomiting, # 10 tablet, 0 Refills, Maintenance, 05/04/20 17:09:00 EST, Tablet, [facility] #27307, 162.56, cm, 05/03/20 9:23:00 EST,Height, 77, kg, [...] 2016 Active Migraine(Confirmed) Active Opioid dependence(Confirmed) Active *[id number] Care Partn April Saavedra(Confirmed) Active Health care [...] tolerance, and QD need over. 2genotype 02/02: [id number] is only mutation detected 3death of sister, caring for mother w/ dementia 4repeat screening colonoscopy in 2020 Social History Social History Type Response Smoking Status Former smoker, quit more than 30 days ago entered on: 05/24/18 Sex
[2022-12-13] MEDS: Thiamine HCL 100 MG in 0.9 % Sodium Chloride 100 ML 202 MG IV (21:53)
--- NOTE | 2022-12-13 22:00 | PC.NURSE ---
Attempted to get vitals on patient but at this time patient is still trashing in bed and vitals were unable to be obtained. Heart rate is noted to still be in the 110's, patient not keeping O2 monitor on.
[2022-12-13] MEDS: OLANZapine 10 MG VIAL IM (22:07)
[2022-12-13] MEDS: PHENobarbitaL sodium 130 MG/ML IM ONCE 219 MG IM (22:08)
[2022-12-13 22:20] LABS: Ethanol < 10 mg/dL; Iron 47 mcg/dL (30-160); Percent Iron Saturation 13 % (15-50); Total Iron Binding Capacity 372 mcg/dL (228-428); Unsaturated Iron Binding 325 ug/dL
[2022-12-13] MEDS: 0.9 % Sodium Chloride 1,000 ML 999 ML IV (22:33)
[2022-12-13] MEDS: LORazepam 2 MG/ML VIAL IVPUSH (23:06)
--- NOTE | 2022-12-13 23:11 | PC.NURSE ---
Patient continues to thrash around on the stretcher and attempting to get up. Provider aware and Ativan ordered and administered per APR.
[2022-12-13 23:53] VITALS: O2SAT 96
[2022-12-14] VITALS (36 sets, daily range): BP systolic 79–155; BP diastolic 41–98; PULSE 56–116; RESP 16–30; TEMP 32–37; O2SAT 93–100; BMI 29.7; BMI 31.0
[2022-12-14] MEDS: PHENobarbitaL sodium 130 MG/ML VIAL IM Q3Hx2 164 MG IM (00:37)
--- NOTE | 2022-12-14 01:10 | PC.NURSE ---
Patient continuously attempting to get out of bed, when asked where she was going patient stated that she needed to use the bathroom. Bladder scan showed >550 ml, scan was not able to capture full bladder as patient continued to move while scan was going on. Patient was straight cathed for 700ml of urine. Patient continues to attempt to get out of bed, not able to effectively communicate with staff.
[2022-12-14 01:14] LABS: Appearance Urine Cloudy; Color Urine Yellow; Glucose Urine UA Negative (Negative); Leukocyte Esterase Urine Trace (Negative); Nitrite Urine Positive (Negative); UMIC TRIGGER UACC YES; Urine Blood Small (1+) (Negative); Urine Ketones Negative (Negative); Urine Protein Negative (Neg-Trace)
[2022-12-14 01:21] LABS: Amphetamine Screen Urine Not Detected (Not Detect); Barbiturates, Urine POSITIVE (Not Detect); Benzodiazepines Screen Urine Not Detected (Not Detect); Cannabinoid Screen Urine Not Detected (Not Detect); Cocaine Screen Urine Not Detected (Not Detect); Fentanyl, urine POSITIVE (Not Detect); Opiate Screen Urine Not Detected (Not Detect); Phencyclidine Screen Urine Not Detected (Not Detect)
[2022-12-14 01:25] LABS: Bacteria Urine 4+ (None Seen); Hyaline Casts Urine 0-2 /LPF (0-2); Squamous Epithelial Cell Urine 0-2 /HPF (0-2); UACC Culture Trigger YES; WBC Urine 0-5 /HPF (0-5)
[2022-12-14] MEDS: dexmedeTOMIDidine HCL/NS 400 MCG/100 ML INFUS..BTL 20.41 MCG IVCONT (01:28)
[2022-12-14] MEDS: Dextrose 5 % and Lactated Ring 1,000 ML 100 ML IVCONT ×3 (01:30→19:16)
--- NOTE | 2022-12-14 01:30 | PC.NURSE ---
Pt arrived to ICU from ED at approx 0130. Upon initial assessment- pt agitated/ restless, trying to get out of bed. CIWA 26. Pt started on Precedex gtt and titrated to max dose per protocol with no effect. Pt tachycardic and tachypneic, not following commands, in severe withdrawal. HEARING AID REPAIRER Rory aware, decision made to intubate for airway protection and DT. Total of 160mg of Propofol and 50mg Sanjay for RSI. Successfully intubated at 0215, ETT 7.5, 24 at lip, ACVC settings. OGT placed and clamped. ETT and OGT confirmed with XR. Started on Propofol gtt for sedation, Rass -3/-4. Weak cough/ absent gag reflex. Responds to noxious stimuli, weakly LOPEZ. Levophed gtt titrated to maintain MAP >65. Sinus rhythm/ sinus benjamin 50-60s. Riojas placed, draining concentrated urine with sediment. Initial core temp 95.9- applied warm blankets to pt, temp increased to 96.6. Bed locked and in lowest position. Restraints in place. Report given to oncoming RN at 0700.
--- NOTE | 2022-12-14 01:31 | PM.CCHP ---
History of Present Illness Date of Service: 12/14/22 Attending physician on admission: Tre Tinoco Chief Complaint: Alcohol withdrawal Ms. Mauricio is a 47-year-old female with a history of alcohol and opiate abuse on suboxone, Aids, Asthma, cirrhosis, Hep C, HTN, portal htn gastropathy, tubular adenoma of the colon who was sent to ER today from [facility] for withdrawal. On arrival, the pt stated that she was withdrawing from alcohol and opiates. She denied dizziness, abdominal pain, nausea vomiting, chest pain, shortness of breath, or any other symptoms. At the facility the patient was given 1 mg of Ativan and 100 mg of Benadryl. Laboratory data significant for?plt 52, PTT 19.0, INR 1.6, PTT 38.4,? Tbili 4.1, AST 79, ALT 36, ETOH < 10. ED Course: The patient? was given 5 mg of Haldol IM, 5 mg Ambien, lorazepam 2 mg p.o., phenobarb 219 mg IM, Zyprexa 10 mg IM, lorazepam 2 mg IV, thiamine 100 mg. Review of Systems Review of Systems: Yes Unobtainable due to mental condition Neurologic: Reports confusion (restless) Psychiatric: Psychiatric: Reports confusion (restless) [facility] Social History Social History Patient Tobacco Use Status: Current everyday Tobacco user Smoked in Last 30 Days: Yes Use of substances other than those prescribed or required for medical reasons: Yes Substance Use Type: Crack/Cocaine and Heroin Substance Use Frequency: Daily Last Used Substance: Days (ago) Advance Directives: No Advance Directives Information Provided: No Nutrition Risks: No Nutritional Risk Meds Allergies Allergy/AdvReac Type Severity Reaction Status Date / Time aspirin Allergy Unknown Verified 12/13/22 19:23 Active Medications: Current Medications Dexmedetomidine HCl (Precedex) 400 mcg in 100 mls @ 0 mls/hr IVCONT .Q0M NOAH; Protocol Last Admin: 12/14/22 01:28 Dose: 1 mcg/kg/hr, 20.41 mls/hr Dextrose/Lactated Ringer's (D5lr) 1,000 mls @ 100 mls/hr IVCONT .Q10H NOAH Pantoprazole Sodium (Pantoprazole Sodium 40 Mg/10 Ml Vial) 40 mg IVPUSH DAILY@0630 [facility] Pharmacy Consult (Consult Rx Etoh Phenob Im/Po) 1 each MISCELLANE ONCE PRN; Protocol PRN Reason: Consult order Phenobarbital (Phenobarbital 15 Mg Tablet) 45 mg PO BID [facility]; Protocol Stop: 12/15/22 21:01 Phenobarbital (Phenobarbital 15 Mg Tablet) 15 mg PO BID [facility]; Protocol Stop: 12/17/22 21:01 Phenobarbital (Phenobarbital 15 Mg Tablet) 15 mg PO DAILY [facility]; Protocol Stop: 12/19/22 09:01 Phenobarbital Sodium (Phenobarbital Sodium 130 Mg/Ml Vial Im Q3hx2) 164 mg IM Q3H NOAH; Protocol Stop: 12/14/22 03:31 Last Admin: 12/14/22 00:37 Dose: 164 mg Physical Exam Vital Signs: Vital Signs: Last Vital Signs Temp 97.7 F 12/14/22 01:26 Pulse 106 H 12/14/22 01:26 Resp 26 H 12/14/22 01:26 BP 136/71 12/14/22 01:26 Pulse Ox 96 12/14/22 01:26 O2 Del Method Room Air 12/14/22 01:26 BMI result Body Mass Index 29.7 Const: General: confusion (restless) Orientation/consciousness: confusion (restless) HEENT: Head: Yes normocephalic and Yes atraumatic General nose exam: Normal external nose present (Nares patent, septum midline, sinuses nontender bilaterally.) Mouth: Normal oral and palatal mucosa present (No thrush, tongue in midline.) Teeth and gingiva: dentition normal Throat: Yes other (No erythema, no exudate.) Eyes: Pupils: Equal, round and reactive pupils present Neck: Neck: Yes supple (no thyromegaly, trachea midline.) Carotids: normal carotid upstroke Resp: Auscultation: clear to auscultation bilaterally (normal work of breathing, no accessory muscle use) Cardio: Jugular venous distension: no JVD Rate: regular rate Rhythm: regular rhythm Heart sounds: no gallops, no murmurs and no rubs Peripheral pulses: Peripheral pulses 2+ throughout GI: Palpation (GI): Soft to palpation (nondistended.) and nontender Skin: General skin exam: no rashes or lesions noted Neuro: General: confusion (restless) Cranial nerves: Yes Equal, round and reactive pupils present Extrem: General: Yes full ROM, Yes capillary refill normal and Yes no clubbing, cyanosis or edema Psych: Speech and movement: Psychomotor agitation in speech present and Restless speech present Results Labs 12/13/22 19:26 12/13/22 19:26 Labs: Laboratory Results - last 24 hr 12/13/22 12/13/22 12/14/22 19:26 21:54 01:07 MCV 75.9 L MCH 24.8 L MCHC 32.6 RDW 19.9 H Plt Count 52 L MPV TNP Immature Gran % (Auto) 0.2 Neut % (Auto) 72.3 Lymph % (Auto) 19.0 L [place] % (Auto) 8.1 Eos % (Auto) 0.2 Baso % (Auto) 0.2 Lymph # (Auto) 0.8 L [place] # (Auto) 0.3 Eos # (Auto) 0.0 Baso # (Auto) 0.0 Abs Immat Gran (auto) 0.01 Absolute Neuts (auto) 2.9 Absolute Nucleated RBC 0.000 Nucleated RBC % (auto) 0.0 PT 19.0 H INR 1.6 H APTT 38.4 H Anion Gap 17 Estim Creat Clear Calc 83.6 Estimated GFR > 60 Random Glucose 107 Calcium 10.4 H Magnesium 1.8 Iron 47 TIBC 372 % Saturation 13 L Unsat Iron Binding 325 Total Bilirubin 4.1 H AST 79 H ALT 36 H Alkaline Phosphatase 82 Total Protein 8.7 H Albumin 3.3 L Urine Color Yellow Urine Appearance Cloudy Urine pH 6.0 Ur Specific Carmen 1.010 Urine Protein Negative Urine Glucose (UA) Negative Urine Ketones Negative Urine Blood Small (1+) H Urine Nitrite Positive H Ur Leukocyte Esterase Trace H Urine RBC 3-5 H Urine WBC 0-5 Ur Squamous Epith Cells 0-2 Urine Bacteria 4+ Hyaline Casts 0-2 Urine Opiates Screen Not Detected Urine Fentanyl Screen POSITIVE H Ur Barbiturates Screen POSITIVE H Ur Phencyclidine Scrn Not Detected Ur Amphetamines Screen Not Detected U Benzodiazepines Scrn Not Detected Urine Cocaine Screen Not Detected U Marijuana (THC) Screen Not Detected Ethyl Alcohol < 10 Cancelled Influenza Type A (PCR) NEGATIVE Influenza Type B (PCR) NEGATIVE RSV RNA Qual (PCR) NEGATIVE SARS-CoV-2 RNA (RT-PCR) NEGATIVE Assessment and Plan (1) Alcohol withdrawal: Status: Acute (2) UTI (urinary tract infection): Status: Acute Plan Assessment: 47-year-old female with PMH of alcohol and opiate abuse, AIDS, Asthma, cirrhosis, Hep C, HTN, portal htn gastropathy, tubular adenoma of the colon admitted for alcohol withdrawal. Neuro: Alcohol withdrawal syndrome.? No history of seizures / delirium tremens. Phenobarb protocol. Precedex.? Cardiac: Tachycardia likely due to alcohol withdrawal.? Pulmonary: No acute issues Renal: No acute issues. Endo:? No acute issues.? GI:Transaminitis. Cont to monitor LFTs. : Urine positive for UTI. Ceftriaxone ordered. Heme/Onc: Thrombocytopenia likely due to alcohol intake, no signs of bleeding at this time Psych:? Tox screen positive for Fentanyl. Pt will be returning to [facility] upon discharge.? Miscellaneous: No acute issues. Case discussed with Dr. Tinoco. Time Spent With Patient Time: Total time managing care of this patient today ____ minutes.
[2022-12-14] MEDS: Rocuronium Bromide 50 MG/5 ML VIAL IVPUSH (02:12)
[2022-12-14] MEDS: propofoL 1,000 MG/100 ML VIAL 14.13 MG IVCONT ×4 (02:15→23:41)
--- NOTE | 2022-12-14 02:33 | W.PM.CCHP ---
Procedures Date of Service Date of Service: 12/14/22 Intubation Intubation Comments: The patient was unable to consent due to altered mental status. She was emergently intubated secondary to alcohol withdrawal. She was preoxygenated with Ambu bag 100%. RSI was carried out with the meds below.? The glottis was easily visualized with 4 GlideScope, and the trachea was intubated with a 7.5 ETT via? indirect video visualization, atraumatic.? BSBE, +CO2, SpO2 maintained.? The tube was secured at 24 cm at the upper lip. The patient tolerated the procedure well with no complications.? Placement confirmed with chest x-ray. Consent for Procedure: Emergent-no informed consent obtained Time out performed: Yes Sedative: propofol Mg given: 160 Paralytic: rocuronium Mg given: 50 Laryngoscope: fiber optic video scope ET tube size: 7.5 ET tube uncuffed: No Tube secured depth (cm): 24 Tube secured location: lips Tube placement confirmation: visualized tube passing through cords, equal breath sounds bilaterally, no breath sounds over epigastrium and confirmation by capnometry Patient tolerated procedure: well and no complications Intubation complications: none
[2022-12-14] MEDS: propofoL 200 MG/20 ML VIAL 160 MG IVPUSH (02:42)
[2022-12-14] MEDS: cefTRIAXone sodium 1 GM in 0.9 % Sodium Chloride 50 ML IV (03:56)
[2022-12-14 04:28] LABS: Eosinophils Percent Auto 0.3 % (0-4); Hematocrit 27.8 % (37.0-47.0); PLT ABN DIST 1; SCAN SMEAR FLAG 1
[2022-12-14 04:29] LABS: VBG Base Excess 5.4 mmol/L; VBG HCO3 27 mmol/L (22-26); VBG pCO2 31 mmHg; VBG pH 7.55 (7.32-7.43); VBG pO2 78 mmHg
[2022-12-14 04:30] LABS: Basophils Percent Auto 0.3 % (0-2); Hemoglobin 8.9 g/dl (12.0-16.0); Lymphocytes Absolute Auto 0.8 X10*3/uL (1.2-4.9); Lymphocytes Percent Auto 24.4 % (20-40); MANUAL DIFF FLAG NO; Mean Corpuscular Hemoglobin 23.8 pg (27.0-33.0); Mean Corpuscular Volume 74.3 fL (80.0-98.0); Monocytes Absolute Auto 0.2 X10*3/uL (0.1-1.2); Monocytes Percent Auto 7.1 % (2-11); Neutrophils Absolute Auto 2.1 x10*3/uL (2.0-8.3); Neutrophils Percent Auto 67.9 % (45-73); Platelet Count 40 X10*3/uL (160-400); Red Blood Count 3.74 X10*6/uL (4.20-5.50); Red Cell Distribution Width 18.6 % (11.0-16.0); White Blood Count 3.1 X10*3/uL (4.8-10.8)
[2022-12-14 04:30] LABS: Venous Blood Gas Refer to POC result
[2022-12-14] MEDS: propofoL 1,000 MG/100 ML VIAL 18.84 MG IVCONT (04:40)
[2022-12-14 04:49] LABS: Alanine Aminotransferase 30 U/L (0-31); Albumin Level 2.5 g/dL (3.5-5.0); Alkaline Phosphatase 61 U/L (39-117); Anion Gap 13 (12-20); Aspartate Amino Transferase 82 U/L (5-31); Bilirubin Total 3.5 mg/dL (0.0-1.0); Blood Urea Nitrogen 13 mg/dL (9-16); Calcium 8.8 mg/dL (8.4-10.2); Carbon Dioxide 23 mmol/L (22-29); Chloride 107 mmol/L (96-108); Estimated Glomerular Filt Rate > 60; Glucose Random 168 mg/dL (60-115); Magnesium 1.7 mg/dL (1.6-2.6); Phosphorus 3.1 mg/dL (2.7-4.5); Potassium 3.8 mmol/L (3.3-5.1); Sodium 139 mmol/L (135-145); Total Protein 6.8 g/dL (6.5-8.0)
[2022-12-14] MEDS: Norepinephrine Bitartrate/D5W 8 MG/250 ML PLAST..BAG 7.36 MG IV (04:54)
[2022-12-14] MEDS: Pantoprazole Sodium 40 MG/10 ML VIAL IVPUSH (05:36)
[2022-12-14 05:54] LABS: Lactic Acid 1.3 mmol/L (0.5-2.0)
[2022-12-14] MEDS: Albumin Human 25 % 100 ML IV ×4 (06:10→23:45)
--- NOTE | 2022-12-14 08:01 | P.PNCC_ITS ---
Subjective Subjective Date of Service: 12/15/22 Interval History: no interval overnight events Critical Care Time (minutes): 90 Physical Exam 2 Vital Signs: Vital Signs: Last Vital Signs Temp 96.6 F L 12/14/22 07:00 Pulse 61 12/14/22 07:00 Resp 18 12/14/22 07:00 BP 135/72 12/14/22 07:00 Pulse Ox 99 12/14/22 07:00 O2 Del Method Mechanical Ventil ation 12/14/22 06:00 FiO2 30 12/14/22 07:41 BMI result Body Mass Index 31.0 Const: Other: intubated, sedated; General: comfortable, no acute distress and well developed HEENT: Head: Yes normal to inspection, Yes normocephalic and Yes atraumatic Eyes: General: appearance normal, both eyes and all related structures Neck: Neck: Yes normal visual inspection and Yes supple Chest: Chest palpation & inspection: normal inspection of the chest Resp: Other: appreciable mild rhonchi R lung bhat; no rales, wheezing Cardio: Rate: regular rate Rhythm: regular rhythm Heart sounds: S1 normal heart sound present and S2 normal heart sound present GI: Inspection: Yes normal to inspection, No Abdominal wall edema and No distended Palpation (GI): Soft to palpation, not firm, nontender, no guarding and not rigid : External Female Exam: normal external appearance Skin: General skin exam: no rashes or lesions noted Neuro: Other: sedated General: no focal motor deficits Extrem: General: Yes normal to inspection, Yes capillary refill normal, No cyanosis and No edema Objective Data Labs 12/15/22 04:40 12/15/22 04:40 Labs: Laboratory Results - last 24 hr 12/13/22 12/13/22 12/14/22 19:26 21:54 01:07 WBC 4.1 L RBC 4.40 Hgb 10.9 L Hct 33.4 L MCV 75.9 L MCH 24.8 L MCHC 32.6 RDW 19.9 H Plt Count 52 L MPV TNP Immature Gran % (Auto) 0.2 Neut % (Auto) 72.3 Lymph % (Auto) 19.0 L Waller % (Auto) 8.1 Eos % (Auto) 0.2 Baso % (Auto) 0.2 Lymph # (Auto) 0.8 L Waller # (Auto) 0.3 Eos # (Auto) 0.0 Baso # (Auto) 0.0 Abs Immat Gran (auto) 0.01 Absolute Neuts (auto) 2.9 Absolute Nucleated RBC 0.000 Nucleated RBC % (auto) 0.0 PT 19.0 H INR 1.6 H APTT 38.4 H VBG pH VBG pCO2 VBG pO2 VBG HCO3 VBG O2 Saturation VBG Base Excess Sodium 138 Potassium 3.7 Chloride 104 Carbon Dioxide 21 L Anion Gap 17 BUN 11 Creatinine 0.86 Estim Creat Clear Calc 83.6 Estimated GFR > 60 Random Glucose 107 Lactic Acid Calcium 10.4 H Phosphorus Magnesium 1.8 Iron 47 TIBC 372 % Saturation 13 L Unsat Iron Binding 325 Total Bilirubin 4.1 H AST 79 H ALT 36 H Alkaline Phosphatase 82 Total Protein 8.7 H Albumin 3.3 L Urine Color Yellow Urine Appearance Cloudy Urine pH 6.0 Ur Specific [place] 1.010 Urine Protein Negative Urine Glucose (UA) Negative Urine Ketones Negative Urine Blood Small (1+) H Urine Nitrite Positive H Ur Leukocyte Esterase Trace H Urine RBC 3-5 H Urine WBC 0-5 Ur Squamous Epith Cells 0-2 Urine Bacteria 4+ Hyaline Casts 0-2 Urine Opiates Screen Not Detected Urine Fentanyl Screen POSITIVE H Ur Barbiturates Screen POSITIVE H Ur Phencyclidine Scrn Not Detected Ur Amphetamines Screen Not Detected U Benzodiazepines Scrn Not Detected Urine Cocaine Screen Not Detected U Marijuana (THC) Screen Not Detected Ethyl Alcohol < 10 Cancelled Influenza Type A (PCR) NEGATIVE Influenza Type B (PCR) NEGATIVE RSV RNA Qual (PCR) NEGATIVE SARS-CoV-2 RNA (RT-PCR) NEGATIVE 12/14/22 12/14/22 12/14/22 04:19 04:23 05:28 WBC 3.1 L RBC 3.74 L Hgb 8.9 L Hct 27.8 L MCV 74.3 L MCH 23.8 L MCHC 32.0 RDW 18.6 H Plt Count 40 L MPV Not Reportable Immature Gran % (Auto) 0.0 Neut % (Auto) 67.9 Lymph % (Auto) 24.4 Waller % (Auto) 7.1 Eos % (Auto) 0.3 Baso % (Auto) 0.3 Lymph # (Auto) 0.8 L Waller # (Auto) 0.2 Eos # (Auto) 0.0 Baso # (Auto) 0.0 Abs Immat Gran (auto) 0.00 Absolute Neuts (auto) 2.1 Absolute Nucleated RBC 0.000 Nucleated RBC % (auto) 0.0 PT INR APTT VBG pH 7.55 H VBG pCO2 31 VBG pO2 78 VBG HCO3 27 H VBG O2 Saturation 97.0 VBG Base Excess 5.4 Sodium 139 Potassium 3.8 Chloride 107 Carbon Dioxide 23 Anion Gap 13 BUN 13 Creatinine 0.75 Estim Creat Clear Calc 94.0 Estimated GFR > 60 Random Glucose 168 H Lactic Acid 1.3 Calcium 8.8 D Phosphorus 3.1 Magnesium 1.7 Iron TIBC % Saturation Unsat Iron Binding Total Bilirubin 3.5 H AST 82 H ALT 30 Alkaline Phosphatase 61 Total Protein 6.8 Albumin 2.5 L Urine Color Urine Appearance Urine pH Ur Specific [place] Urine Protein Urine Glucose (UA) Urine Ketones Urine Blood Urine Nitrite Ur Leukocyte Esterase Urine RBC Urine WBC Ur Squamous Epith Cells Urine Bacteria Hyaline Casts Urine Opiates Screen Urine Fentanyl Screen Ur Barbiturates Screen Ur Phencyclidine Scrn Ur Amphetamines Screen U Benzodiazepines Scrn Urine Cocaine Screen U Marijuana (THC) Screen Ethyl Alcohol Influenza Type A (PCR) Influenza Type B (PCR) RSV RNA Qual (PCR) SARS-CoV-2 RNA (RT-PCR) Progress Note: A&P Assessment and plan (1) Alcohol withdrawal: Status: Acute Plan Assessment: 47 Y F, alcohol misuse, opioid misuse on buprenorphine, hepatitis C c/b cirrhosis, AIDS, asthma, and tubular adenoma of the colon p/w withdrawal on 12/13, given multi-modal regimen for withdrawal, c/b sedation, Plan: N: s/p lorazepam, haloperidol, olanzapine, diphenhydramine, phenobarbital; now on propofol gtt; to wean sedation for neurological exam as appropriate CV: hypotension, likely d/t sedation, improved R: VC-AC, minimal support; daily assessment for extubation GI: no acute issues; hepatitis C c/b cirrhosis, transaminitis; : urinalysis not floridly suggestive of urinary tract infection; to continue to monitor H: AIDS; leukopenia; thrombocytopenia; to consider chemical DVT prophylaxis w/ improvement thrombocytopenia >50 ID: urinalysis not floridly suggestive of urinary tract infection; to continue to monitor E: no acute issues P: polysubstance misuse Quality Stroke Does the patient have a stroke diagnosis?: No VTE Prior VTE?: No VTE Risk Level:: Medical - moderate - high VTE Device Contraindication: N/A - Device Ordered VTE Drug Contraindication: Treatment Not Indicated
--- NOTE | 2022-12-14 08:26 | PHA.MEDREC ---
Pharmacy Consult ? Medication Reconciliation Pharmacy has completed the medication reconciliation. List faxed to pharmacy of medical record with current medications
[2022-12-14 10:09] LABS: VBG Base Excess 9.1 mmol/L; VBG HCO3 31 mmol/L (22-26); VBG pCO2 34 mmHg; VBG pH 7.56 (7.32-7.43); VBG pO2 82 mmHg
[2022-12-14] MEDS: Chlorhexidine Gluc Oral Rinse 15 ML MOUTHWASH BUCCAL ×3 (10:30→20:00)
--- NOTE | 2022-12-14 10:48 | MHC.CM.PN ---
PT IS CURRENTLY INTUBATED AND SEDATED IN ICU. CM IS UNABLE TO REACH SPOUSE LISTED PRIMARY CONTACT (SHIVANI LI [phone]) CM SPOKE WITH NURSE JUDY AT [facility] WHERE PT CAME FROM. A NEW REFERRAL WILL NEED TO BE MADE ON PT'S DC FROM [facility] BEFORE SHE CAN RETURN. PER NURSE, PT IS INDEPENDENT AND DOES NOT HAVE A HCP ON FILE WITH THEM. CM WILL CONTINUE TO TRY AND REACH SPOUSE AND FOLLOW FOR A DC PLAN/NEEDS.
[2022-12-14 14:04] LABS: Venous Blood Gas Refer to POC result
[2022-12-15] VITALS (32 sets, daily range): BP systolic 106–152; BP diastolic 59–90; PULSE 61–98; RESP 12–32; TEMP 34.8–37.3; O2SAT 90–100; BMI 30.8
[2022-12-15] MEDS: propofoL 1,000 MG/100 ML VIAL 18.84 MG IVCONT ×2 (02:40→08:32)
[2022-12-15] MEDS: Dextrose 5 % and Lactated Ring 1,000 ML 100 ML IVCONT ×2 (04:39→14:50)
[2022-12-15 04:50] LABS: VBG HCO3 31 mmol/L (22-26); VBG pCO2 36 mmHg; VBG pH 7.54 (7.32-7.43); VBG pO2 62 mmHg
[2022-12-15 04:58] LABS: Hemoglobin 8.7 g/dl (12.0-16.0); Monocytes Absolute Auto 0.3 X10*3/uL (0.1-1.2); PLT ABN DIST 1; SCAN SMEAR FLAG 1
[2022-12-15 04:59] LABS: Basophils Percent Auto 0.4 % (0-2); Eosinophils Absolute Auto 0.1 X10*3/uL (0.0-0.4); Eosinophils Percent Auto 3.4 % (0-4); Hematocrit 27.1 % (37.0-47.0); Lymphocytes Absolute Auto 0.9 X10*3/uL (1.2-4.9); Mean Corpuscular HGB Conc 32.1 g/dl (31.0-35.0); Mean Corpuscular Hemoglobin 24.1 pg (27.0-33.0); Mean Corpuscular Volume 75.1 fL (80.0-98.0); Monocytes Percent Auto 10.2 % (2-11); Neutrophils Absolute Auto 1.4 x10*3/uL (2.0-8.3); Red Blood Count 3.61 X10*6/uL (4.20-5.50); Red Cell Distribution Width 19.2 % (11.0-16.0); White Blood Count 2.6 X10*3/uL (4.8-10.8)
[2022-12-15 05:08] LABS: MANUAL DIFF FLAG NO; Platelet Count 39 X10*3/uL (160-400)
[2022-12-15 05:15] LABS: Alanine Aminotransferase 31 U/L (0-31); Albumin Level 3.4 g/dL (3.5-5.0); Alkaline Phosphatase 50 U/L (39-117); Anion Gap 10 (12-20); Aspartate Amino Transferase 79 U/L (5-31); Bilirubin Total 2.6 mg/dL (0.0-1.0); Blood Urea Nitrogen 14 mg/dL (9-16); Calcium 9.2 mg/dL (8.4-10.2); Carbon Dioxide 25 mmol/L (22-29); Chloride 109 mmol/L (96-108); Creatinine Clr Calc Pharmacy 83.7; Estimated Glomerular Filt Rate > 60; Glucose Random 121 mg/dL (60-115); Potassium 3.4 mmol/L (3.3-5.1); Sodium 141 mmol/L (135-145); Total Protein 6.9 g/dL (6.5-8.0)
[2022-12-15 05:20] LABS: Magnesium 1.8 mg/dL (1.6-2.6); Phosphorus 2.7 mg/dL (2.7-4.5)
[2022-12-15 05:24] LABS: Venous Blood Gas Refer to POC result
[2022-12-15] MEDS: Pantoprazole Sodium 40 MG/10 ML VIAL IVPUSH (06:05)
[2022-12-15] MEDS: Chlorhexidine Gluc Oral Rinse 15 ML MOUTHWASH BUCCAL (08:33)
[2022-12-15 09:22] LABS: HCG Quantitative < 2 mIU/mL
[2022-12-15] MEDS: cefTRIAXone sodium 1 GM in 0.9 % Sodium Chloride 50 ML IV (10:25)
--- NOTE | 2022-12-15 15:42 | MHC.SLORD ---
Speech Language Pathology Order Status: COMMERCIAL MAKEUP ARTIST in to attempt with Pt, not following commands still altered from sedation/withdrawl symptoms. Attempted moistened swab with limited stimulability, not following directions. Swallow evaluation pending for tomorrow.
[2022-12-16] VITALS (17 sets, daily range): BP systolic 109–145; BP diastolic 57–80; PULSE 60–75; RESP 16–32; TEMP 36.1–37; O2SAT 91–98; BMI 30.6
[2022-12-16] MEDS: Melatonin 3 MG TABLET 6 MG PO (00:02)
[2022-12-16] MEDS: Dextrose 5 % and Lactated Ring 1,000 ML 100 ML IVCONT (00:03)
[2022-12-16] MEDS: Acetaminophen 325 MG TABLET 975 MG PO (03:31)
[2022-12-16] MEDS: Pantoprazole Sodium 40 MG/10 ML VIAL IVPUSH (05:32)
[2022-12-16 07:36] LABS: Basophils Percent Auto 0.5 % (0-2); Eosinophils Absolute Auto 0.1 X10*3/uL (0.0-0.4); Eosinophils Percent Auto 3.1 % (0-4); Hematocrit 26.3 % (37.0-47.0); Hemoglobin 8.4 g/dl (12.0-16.0); Imm Gran Abs Auto 0.01 X10*3/uL (0.00-0.03); Imm Gran Pct Auto 0.5 % (0.0-0.4); Lymphocytes Absolute Auto 0.8 X10*3/uL (1.2-4.9); Lymphocytes Percent Auto 42.9 % (20-40); MANUAL DIFF FLAG SCAN; Mean Corpuscular HGB Conc 31.9 g/dl (31.0-35.0); Mean Corpuscular Volume 75.1 fL (80.0-98.0); Monocytes Absolute Auto 0.2 X10*3/uL (0.1-1.2); Monocytes Percent Auto 11.5 % (2-11); Neutrophils Absolute Auto 0.8 x10*3/uL (2.0-8.3); Neutrophils Percent Auto 41.5 % (45-73); Platelet Count 34 X10*3/uL (160-400); Red Cell Distribution Width 19.1 % (11.0-16.0); SCAN SMEAR FLAG 1; White Blood Count 1.9 X10*3/uL (4.8-10.8)
[2022-12-16 07:39] LABS: Alanine Aminotransferase 35 U/L (0-31); Alkaline Phosphatase 50 U/L (39-117); Anion Gap 11 (12-20); Aspartate Amino Transferase 86 U/L (5-31); Bilirubin Total 3.1 mg/dL (0.0-1.0); Blood Urea Nitrogen 10 mg/dL (9-16); Carbon Dioxide 23 mmol/L (22-29); Chloride 110 mmol/L (96-108); Creatinine Clr Calc Pharmacy 96.7; Estimated Glomerular Filt Rate > 60; Glucose Random 114 mg/dL (60-115); Potassium 3.3 mmol/L (3.3-5.1); Sodium 141 mmol/L (135-145); Total Protein 6.5 g/dL (6.5-8.0)
[2022-12-16] MEDS: Thiamine HCL 100 MG TABLET PO (08:10)
[2022-12-16] MEDS: Folic Acid 1 MG TABLET PO (08:10)
[2022-12-16] MEDS: Multivitamin TABLET 1 TAB PO (08:10)
--- NOTE | 2022-12-16 08:14 | P.PNCC_ITS ---
Subjective Subjective Date of Service: 12/16/22 Interval History: extubated; no interval overnight events Critical Care Time (minutes): 60 Physical Exam 2 Vital Signs: Vital Signs: Last Vital Signs Temp 98.0 F 12/16/22 08:00 Pulse 62 12/16/22 08:00 Resp 18 12/16/22 08:00 BP 113/70 12/16/22 08:00 Pulse Ox 96 12/16/22 08:00 O2 Del Method Room Air 12/16/22 08:00 O2 Flow Rate 1 12/16/22 06:00 FiO2 30 12/15/22 13:02 BMI result Body Mass Index 30.6 Const: General: cooperative, healthy appearing, comfortable, no acute distress, well developed, alert and awake Orientation/consciousness: patient oriented x3 HEENT: Head: Yes normal to inspection, Yes normocephalic and Yes atraumatic Eyes: General: appearance normal, both eyes and all related structures Neck: Neck: Yes normal visual inspection Chest: Chest palpation & inspection: normal inspection of the chest Resp: Other: no rales, rhonchi, wheezing Effort & Inspection: normal respiratory effort Cardio: Rate: regular rate Rhythm: regular rhythm Heart sounds: S1 normal heart sound present and S2 normal heart sound present GI: Inspection: Yes normal to inspection, No Abdominal wall edema and No distended Palpation (GI): Soft to palpation, not firm, nontender, no guarding and not rigid Skin: General skin exam: no rashes or lesions noted Neuro: General: patient oriented x3, moves all extremities and no focal motor deficits Extrem: General: Yes normal to inspection, Yes capillary refill normal and Yes no clubbing, cyanosis or edema Psych: Appearance: grossly normal Objective Data Labs 12/16/22 07:17 12/16/22 07:17 Labs: Laboratory Results - last 24 hr 12/15/22 12/16/22 08:50 07:17 WBC 1.9 L RBC 3.50 L Hgb 8.4 L Hct 26.3 L MCV 75.1 L MCH 24.0 L MCHC 31.9 RDW 19.1 H Plt Count 34 L MPV Not Reportable Hold Purple Top SEE NOTE Sodium 141 Potassium 3.3 Chloride 110 H Carbon Dioxide 23 Anion Gap 11 L BUN 10 Creatinine 0.74 Estim Creat Clear Calc 96.7 Estimated GFR > 60 Random Glucose 114 Calcium 9.0 Total Bilirubin 3.1 H AST 86 H ALT 35 H Alkaline Phosphatase 50 Total Protein 6.5 Albumin 3.0 L Beta HCG, Quant < 2 Blood Type O Positive Antibody Screen NEGATIVE Microbiology Microbiology Results: Microbiology 12/14/22 Unknown Urine Catheterized - Riojas Catheter Urine Culture - Final Escherichia coli 12/14/22 05:28 Blood - Venous Blood Culture - Preliminary No growth after 48 hours. 12/14/22 05:28 Blood - Venous Blood Culture - Preliminary No growth after 48 hours. Progress Note: A&P Assessment and plan (1) UTI (urinary tract infection): Status: Acute (2) Alcohol withdrawal: Status: Acute Plan Assessment: 47 Y F, alcohol misuse, opioid misuse on buprenorphine, hepatitis C c/b cirrhosis, AIDS, asthma, and tubular adenoma of the colon p/w withdrawal on 12/13, given multi-modal regimen for withdrawal, intubated for continued agitation, extubated Plan: N: s/p lorazepam, haloperidol, olanzapine, diphenhydramine, phenobarbital; now on propofol gtt; to wean sedation for neurological exam as appropriate CV: hypotension, likely d/t sedation, resolved R: intubated, extubated GI: no acute issues; hepatitis C c/b cirrhosis, transaminitis : urinary tract infection, on ceftriaxone 5 day course H: AIDS; leukopenia; thrombocytopenia; to consider chemical DVT prophylaxis w/ improvement thrombocytopenia >50 ID: urinary tract infection, on ceftriaxone 5 day course E: no acute issues P: polysubstance misuse, desires returning to [facility] Stroke Does the patient have a stroke diagnosis?: No VTE Prior VTE?: No VTE Risk Level:: Medical - moderate - high VTE Device Contraindication: N/A - Device Ordered VTE Drug Contraindication: Treatment Not Indicated
--- NOTE | 2022-12-16 08:54 | MHC.SLORD ---
Speech Language Pathology Order Status: Per chart review, pt was extubated 12/15 around 1300. Pt to be seen for AUDIT MGR swallow evaluation this afternoon following 24+ hour post extubation policy. RN and MD notified.
[2022-12-16] MEDS: cefTRIAXone sodium 1 GM in 0.9 % Sodium Chloride 50 ML IV (09:08)
[2022-12-16 09:15] LABS: SLIDE REVIEW VERIFIED
--- NOTE | 2022-12-16 09:29 | MHC.CLN ---
F/U PT EXTUBATED 12/16 REMAINS NPO -DAY 3 VARNISHING UNIT OPERATOR FOLLOWING PT TRANSFERRING TO MEDICAL FLOOR WHEN DIET TO ADVANCE, RECOMMEND REGULAR DIET WITH HIGH PROTEIN SUPPLEMENT FOLLOWING WITH TEAM
--- NOTE | 2022-12-16 14:28 | MHC.SL.SWA ---
Risk of Aspiration Due to: Lethargy Hx of Recent Extubation Dysphasia Diet Status: UPGRADE Liquid Consistency and Strategies for Safe Swallow: Liquid Intake Recommendation: Solid Food Consistency: Dietary Recommendations: Regular Oral Medication Intake: Whole with Liquid Please contact the pharmacy regarding appropriate crushable or liquid drug formulations that are available whenever modified delivery is recommended. Compensatory Strategies and Precautions to be Taken for Safe Swallow: Sitting Upright (90 deg) Small Bites and Sips Supervision While Eating and Drinking for Safe Swallow: Intermittent Supervision Foods to Avoid: Swallowing Recommended Treatments: Compens. Strategy Educat. Recommendation for Speech: Inpatient Speech Therapy Comment: Recommend UPGRADE from NPO status. Recommend UPGRADE to REGULAR solids and thin liquids. Pills whole in liquid. MEDICAL PRACTICE MANAGER to f/u 1x to ensure toleration of diet and to monitor vocal quality. Frequency/Duration: 1 f/u with MEDICAL PRACTICE MANAGER Concrete Technician Clinican/Clinical Fellow: No Supervisory Statement: I have reviewed and agree with the student/clinical fellow's documentation: N/A Speech Language Pathologist: Sylvia Schmidt M.A., CCC-MEDICAL PRACTICE MANAGER
--- NOTE | 2022-12-16 16:01 | MHC.CM.PN ---
CM MET WITH PT AND HER SPOUSE SHANITA MENDOZA ([phone]) AT BEDSIDE IN ICU. PT STILL SOMEWHAT VAGUE BUT ALERT AND ABLE TO PARTICIPATE. PER PT AND SPOUSE, THEY WISH FOR PT TO RETURN TO [facility] ON DC. CM REQUESTED A CARE TEAM REFERRAL FROM . CM WILL CONTINUE TO FOLLOW FOR ANY CHANGE TO DC PLAN/NEEDS.
[2022-12-16] MEDS: Chlorhexidine Gluc Oral Rinse 15 ML MOUTHWASH BUCCAL (17:03)
[2022-12-16] MEDS: PHENobarbitaL 15 MG TABLET 45 MG PO (20:59)
[2022-12-16] MEDS: Zolpidem Tartrate 5 MG TABLET PO (21:00)
[2022-12-17 03:50] VITALS: BP 110/62; PULSE 63; RESP 20; TEMP 36.1; O2SAT 95
[2022-12-17 07:32] VITALS: BP 118/69; PULSE 70; RESP 20; TEMP 36.6; O2SAT 98
[2022-12-17] MEDS: Thiamine HCL 100 MG TABLET PO (08:56)
[2022-12-17] MEDS: Chlorhexidine Gluc Oral Rinse 15 ML MOUTHWASH BUCCAL ×3 (08:56→20:58)
[2022-12-17] MEDS: PHENobarbitaL 15 MG TABLET 45 MG PO ×2 (08:56→20:54)
[2022-12-17] MEDS: Folic Acid 1 MG TABLET PO (08:56)
[2022-12-17] MEDS: Multivitamin TABLET 1 TAB PO (08:56)
[2022-12-17] MEDS: cefTRIAXone sodium 1 GM in 0.9 % Sodium Chloride 50 ML IV (08:57)
--- NOTE | 2022-12-17 09:49 | MHC.SL.SWA ---
Speech Pathologist Impression: Risk of Aspiration Due to: Lethargy Hx of Recent Extubation Dysphasia Diet Status: Continue on Regular Diet with Thin liquids, pills whole with water. DC Speech/Swallow TX. Liquid Consistency and Strategies for Safe Swallow: Liquid Intake Recommendation: Thin Liquid Intake Strategies: Unrestricted Solid Food Consistency: Dietary Recommendations: Regular Additional Modifications to Solid Foods: Oral Medication Intake: Whole with Liquid Please contact the pharmacy regarding appropriate crushable or liquid drug formulations that are available whenever modified delivery is recommended. Compensatory Strategies and Precautions to be Taken for Safe Swallow: Sitting Upright (90 deg) Small Bites and Sips Supervision While Eating and Drinking for Safe Swallow: None Needed Foods to Avoid: Swallowing Recommended Treatments: Compens. Strategy Educat. Recommendation for Speech: Inpatient Speech Therapy Comment: Patient seen at breakfast this morning for follow up on yesterday's eval, with recommendation of Regular/Thin diet as all swallow function WFL. Patient was on IPad, having finished what she wanted of her breakfast. Patient reported that she a little of each food on tray, but wasn't very hungry (minimal food appeared to have been consumed). MANAGEMENT TRAINEE MARKETING observed patient taking a sip of coffee, producing all aspects of swallow WFL. While patient ate little at breakfast this morning, indication is that patient has no issues with swallowing. Recommend DC speech at this time, please re-contact if any additional issues arise.. Frequency/Duration: D/C Date Range for Service Req: Timeline to reassess: Terminal Operations Supervisor Clinican/Clinical Fellow: No Supervisory Statement: I have reviewed and agree with the student/clinical fellow's documentation: N/A Speech Language Pathologist: Hilda Brumfield M.A., CCC-MANAGEMENT TRAINEE MARKETING
--- NOTE | 2022-12-17 10:23 | MHC.RECOVRN ---
Met with pt in 486 after consult placed to CARE Team for ATS. Pt had presented to the ED with alcohol and opioid withdrawal, subsequently admitted to ICU and intubated to manage withdrawal. Pt now in 486, laying in bed, awake, alert, easily engages in conversation. Appears comfortable. Pt reports having been admitted to [facility] and received Suboxone too soon, resulting in precipitated withdrawal. Pt reports she was then brought to [facility] to further manage opioid and alcohol withdrawal. Pt reports using oxycodone/pressed fentanyl, 30 mg tabs, 1-4 tabs daily, as well as 1/2 bottle wine daily. Pt also reports being prescribed Suboxone through [facility]. Pt had never experienced precipitated withdrawal before but feels the Suboxone was what caused symptoms to be so severe, pt does not believe it was alcohol withdrawal. Pt does not wish to return to [facility] at this time. Pt reports she needs to be home to obtain employment and support as he is having surgery the beginning of December. Pt needing to use the restroom during conversation, t/w to return later with information on recovery supports.
[2022-12-17 11:17] VITALS: BP 108/71; PULSE 71; RESP 20; TEMP 36.6; O2SAT 98
--- NOTE | 2022-12-17 14:10 | MHC.RECOVRN ---
Follow up with pt in 486. Pt reports taking Suboxone, 8 mg BID, last dose Tuesday 12/12 at [facility]. Pt currently denying withdrawal symptoms, reporting anxiety. Pt reports having 4 months in recovery up until one month ago when pt returned to using pressed pills and alcohol. Pt would like to restart Suboxone, concerned about precipitated withdrawal. Discussed and provided pt with recovery resources. Denies other questions or concerns at this time. Discussed with Karin Pena APRN.
[2022-12-17] MEDS: Buprenorphine/Naloxone 8/2 mg FILM 1 FILM SUBLINGUAL (14:32)
--- NOTE | 2022-12-17 15:41 | HO.PM.IMPN ---
Subjective Subjective Date of Service: 12/17/22 Interval History: No acute issues overnight. Remains stable on CIWA scale. No seizures Review of Systems Denies chest pain Denies shortness of breath Denies fever chills Denies nausea vomiting diarrhea Physical Exam Vital Signs: Vital Signs: Last Vital Signs Temp 97.9 F 12/17/22 11:17 Pulse 71 12/17/22 11:17 Resp 20 12/17/22 11:17 BP 108/71 12/17/22 11:17 Pulse Ox 98 12/17/22 11:17 O2 Del Method Room Air 12/17/22 11:17 O2 Flow Rate 1 12/16/22 06:00 FiO2 30 12/15/22 13:02 BMI result Body Mass Index 30.6 Const: Other: Awake alert no acute distress Resp: Other: Clear to auscultation bilaterally no rales rhonchi or wheezes Cardio: Other: No S4; positive S1-S2; no S3 murmurs rubs or gallops GI: Other: Soft nontender nondistended normoactive bowel sounds Extrem: Other: No edema bilaterally Objective Data Active Medications Chlorhexidine Gluconate (Chlorhexidine Gluc Oral Rinse 15 Ml Mouthwash) 15 ml BUCCAL TID [facility] Last Admin: 12/17/22 15:40 Dose: 15 ml Documented By: ALEXANDER Folic Acid (Folic Acid 1 Mg Tablet) 1 mg PO DAILY [facility] Stop: 12/19/22 08:59 Last Admin: 12/17/22 08:56 Dose: 1 mg Documented By: ALEXANDER Ceftriaxone Sodium 1 gm/ (Sodium Chloride) 50 mls @ 100 mls/hr IV Q24H [facility] Stop: 12/20/22 09:29 Last Infusion: 12/17/22 09:56 Dose: Infused Documented By: ALEXANDER Multivitamins/Vitamin C (Multivitamin Tablet) 1 tab PO DAILY [facility] Stop: 12/19/22 08:59 Last Admin: 12/17/22 08:56 Dose: 1 tab Documented By: ALEXANDER Pharmacy Consult (Consult Rx Etoh Phenob Im/Po) 1 each MISCELLANE ONCE PRN PRN Reason: Consult order Phenobarbital (Phenobarbital 15 Mg Tablet) 45 mg PO BID [facility] Stop: 12/17/22 21:01 Last Admin: 12/17/22 08:56 Dose: 45 mg Documented By: ALEXANDER Phenobarbital (Phenobarbital 15 Mg Tablet) 15 mg PO BID [facility] Stop: 12/19/22 21:01 Phenobarbital (Phenobarbital 15 Mg Tablet) 15 mg PO DAILY [facility]; Protocol Stop: 12/21/22 09:01 Thiamine HCl (Thiamine Hcl 100 Mg Tablet) 100 mg PO DAILY [facility] Stop: 12/19/22 08:59 Last Admin: 12/17/22 08:56 Dose: 100 mg Documented By: ALEXANDER Zolpidem Tartrate (Zolpidem Tartrate 5 Mg Tablet) 5 mg PO BEDTIME PRN PRN Reason: Insomnia Last Admin: 12/16/22 21:00 Dose: 5 mg Documented By: MAGALLANES Labs 12/16/22 07:17 12/16/22 07:17 Labs: Laboratory Results - last 24 hr 12/16/22 07:17 Smear Path Review SEE NOTE Assessment and Plan (1) Alcohol withdrawal: Status: Acute (2) UTI (urinary tract infection): Status: Acute Plan The patient is [age]-year-old female presents from local rehab with alcohol withdrawal/opiate withdrawal originally admitted to ICU. Started on phenobarb protocol and progressed as hoped. 1. Alcohol withdrawal -complete phenobarb protocol -addiction Medicine following -hopeful return to [facility] when appropriate 2. UTI (E coli) -ceftriaxone(3)... Switch to Ceftin upon DC -blood cultures negative times 48 hours -Lovenox -full code Requires ongoing hospitalization to complete phenobarb protocol for alcohol withdrawal Time Spent With Patient Time: Total time managing care of this patient today ____ minutes. Quality Stroke Does the patient have a stroke diagnosis?: No VTE Prior VTE?: No VTE Risk Level:: Medical - moderate - high VTE Device Contraindication: N/A - Device Ordered VTE Drug Contraindication: Treatment Not Indicated
[2022-12-17 15:50] VITALS: BP 143/83; PULSE 65; RESP 18; TEMP 36.2; O2SAT 98
[2022-12-17 20:00] VITALS: BP 143/78; PULSE 63; RESP 18; TEMP 36.4; O2SAT 99
[2022-12-17] MEDS: Zolpidem Tartrate 5 MG TABLET PO (22:27)
[2022-12-17 23:37] VITALS: BP 129/75; PULSE 19; RESP 20; TEMP 36.7; O2SAT 98
[2022-12-18 03:56] VITALS: BP 137/86; PULSE 75; RESP 19; TEMP 36.7; O2SAT 98
[2022-12-18 07:31] VITALS: BP 139/81; PULSE 66; RESP 16; TEMP 36.9; O2SAT 98
[2022-12-18] MEDS: Folic Acid 1 MG TABLET PO (09:02)
[2022-12-18] MEDS: PHENobarbitaL 15 MG TABLET PO ×3 (09:02→22:11)
[2022-12-18] MEDS: Thiamine HCL 100 MG TABLET PO (09:02)
[2022-12-18] MEDS: Multivitamin TABLET 1 TAB PO (09:02)
[2022-12-18] MEDS: cefTRIAXone sodium 1 GM in 0.9 % Sodium Chloride 50 ML IV (09:02)
[2022-12-18] MEDS: Chlorhexidine Gluc Oral Rinse 15 ML MOUTHWASH BUCCAL ×2 (09:04→16:32)
[2022-12-18] MEDS: Buprenorphine/Naloxone 8/2 mg FILM 1 FILM SUBLINGUAL ×3 (09:17→22:11)
[2022-12-18] MEDS: ondansetron HCL 4 MG/2 ML VIAL IVPUSH (09:17)
[2022-12-18 11:09] VITALS: BP 149/84; PULSE 75; RESP 16; TEMP 36.6; O2SAT 99
[2022-12-18] MEDS: Lactulose 20 GM/30 ML SOLUTION 30 GM PO (12:37)
--- NOTE | 2022-12-18 13:27 | P.PNIM_ITS ---
Subjective Subjective Date of Service: 12/18/22 Interval History: Somewhat confused this a.m.. No other acute issues Review of Systems Denies chest pain Denies shortness of breath Denies fever chills Denies nausea vomiting diarrhea Physical Exam 2 Vital Signs: Vital Signs: Last Vital Signs Temp 97.8 F 12/18/22 11:09 Pulse 75 12/18/22 11:09 Resp 16 12/18/22 11:09 BP 149/84 H 12/18/22 11:09 Pulse Ox 99 12/18/22 11:09 O2 Del Method Room Air 12/18/22 11:09 O2 Flow Rate 1 12/16/22 06:00 FiO2 98 12/18/22 03:56 BMI result Body Mass Index 30.6 Const: Other: Awake alert no acute distress Resp: Other: Clear to auscultation bilaterally no rales rhonchi or wheezes Cardio: Other: No S4; positive S1-S2; no S3 murmurs rubs or gallops GI: Other: Soft nontender nondistended normoactive bowel sounds Extrem: Other: No edema bilaterally Objective Data Active Medications Buprenorphine/Naloxone (Buprenorphine/Naloxone 8/2 Mg Film) 1 film SUBLINGUAL BID@0900,1600 [facility] Chlorhexidine Gluconate (Chlorhexidine Gluc Oral Rinse 15 Ml Mouthwash) 15 ml BUCCAL TID [facility] Last Admin: 12/18/22 09:04 Dose: 15 ml Documented By: ALEXANDER Folic Acid (Folic Acid 1 Mg Tablet) 1 mg PO DAILY [facility] Stop: 12/19/22 08:59 Last Admin: 12/18/22 09:02 Dose: 1 mg Documented By: ALEXANDER Ceftriaxone Sodium 1 gm/ (Sodium Chloride) 50 mls @ 100 mls/hr IV Q24H [facility] Stop: 12/20/22 09:29 Last Infusion: 12/18/22 09:49 Dose: Infused Documented By: ALEXANDER Lactulose (Lactulose 20 Gm/30 Ml Solution) 30 gm PO BID [facility] Last Admin: 12/18/22 12:37 Dose: 30 gm Documented By: ALEXANDER Multivitamins/Vitamin C (Multivitamin Tablet) 1 tab PO DAILY [facility] Stop: 12/19/22 08:59 Last Admin: 12/18/22 09:02 Dose: 1 tab Documented By: ALEXANDER Ondansetron HCl (Ondansetron Hcl 4 Mg/2 Ml Vial) 4 mg IVPUSH Q4H PRN PRN Reason: Nausea and Vomiting Last Admin: 12/18/22 09:17 Dose: 4 mg Documented By: ALEXANDER Pharmacy Consult (Consult Rx Etoh Phenob Im/Po) 1 each MISCELLANE ONCE PRN PRN Reason: Consult order Phenobarbital (Phenobarbital 15 Mg Tablet) 15 mg PO BID [facility] Stop: 12/19/22 21:01 Last Admin: 12/18/22 09:02 Dose: 15 mg Documented By: ALEXANDER Phenobarbital (Phenobarbital 15 Mg Tablet) 15 mg PO DAILY [facility]; Protocol Stop: 12/21/22 09:01 Thiamine HCl (Thiamine Hcl 100 Mg Tablet) 100 mg PO DAILY [facility] Stop: 12/19/22 08:59 Last Admin: 12/18/22 09:02 Dose: 100 mg Documented By: ALEXANDER Zolpidem Tartrate (Zolpidem Tartrate 5 Mg Tablet) 5 mg PO BEDTIME PRN PRN Reason: Insomnia Last Admin: 12/17/22 22:27 Dose: 5 mg Documented By: MAGALLANES Labs 12/16/22 07:17 12/16/22 07:17 Assessment and Plan (1) Alcohol withdrawal: Status: Acute (2) UTI (urinary tract infection): Status: Acute Plan The patient is [age]-year-old female presents from local rehab with alcohol withdrawal/opiate withdrawal originally admitted to ICU. Started on phenobarb protocol and progressed as hoped. 1. Alcohol withdrawal -complete phenobarb protocol -addiction Medicine following -ammonia this a.m. normal diet dot dot restart lactulose -hopeful return to [facility] when appropriate 2. UTI (E coli) -ceftriaxone(4)... Switch to Ceftin upon DC -blood cultures negative -Lovenox -full code Requires ongoing hospitalization to complete phenobarb protocol for alcohol withdrawal Time Spent With Patient Time: Total time managing care of this patient today ____ minutes. Quality Stroke Does the patient have a stroke diagnosis?: No VTE Prior VTE?: No VTE Risk Level:: Medical - moderate - high VTE Device Contraindication: N/A - Device Ordered VTE Drug Contraindication: Treatment Not Indicated
[2022-12-18 14:09] LABS: Ammonia 32 umol/L (13-55)
--- NOTE | 2022-12-18 14:28 | HO.ADDICT_ITS ---
History of Present Illness Date of Service: 12/18/2022 Chief Complaint: Alcohol withdrawal Sources of Information: patient interviewed and chart reviewed HPI Narrative: Patient is a 47 year old female currently medically admitted with alcohol withdrawal. Previously seen by dice maker and substance use history obtained. Patient was restarted on Suboxone 12/17. She is expressing anxiety about increasing dose back to 8mg BID, however also reporting thoughts of using percocet likely pressed pills. She is tearful when discussing he substance use and saddened that she is in this place as she was in recovery for several years. She denies any withdrawal sx. Most recently she has been drinking wine and possibly mixing it with other medications, however she is unsure. While she was very engaged in interview, she appeared to have difficulty speaking fluidly--spoke slowly and almost forced, was tangential, and not a great historian as details of stories changed several times. She reports recently losing her job and being arrested due to drinking. She stated that she had not been taking her suboxone for the last month and had been taking pressed pills instead. Her is not aware of her opioid use, but is aware of the alcohol use, she is expressing anxiety with having to tell him about her recurrence with opiates. She is engaged in treatment at [facility] and her OBAT nurse has been in contact with [facility] and the patient--OBAT RN reports that this is not patient's baseline and that she has decompensated fairly rapidly recently. Review of Systems Constitutional: Reports as per HPI Diagnostics Vital Signs (24Hr): Vital Signs - 24 hr 12/17/22 15:50 12/17/22 20:00 12/17/22 23:37 Temperature 97.1 F 97.6 F 98.0 F Pulse Rate 65 63 19 L Respiratory Rate 18 18 20 Blood Pressure 143/83 H 143/78 H 129/75 Pulse Oximetry 98 99 98 Oxygen Delivery Method Room Air Room Air Room Air Fraction of Inspired Oxygen 12/18/22 03:56 12/18/22 07:31 12/18/22 11:09 Temperature 98.0 F 98.5 F 97.8 F Pulse Rate 75 66 75 Respiratory Rate 19 16 16 Blood Pressure 137/86 139/81 149/84 H Pulse Oximetry 98 98 99 Oxygen Delivery Method Room Air Room Air Room Air Fraction of Inspired Oxygen 98 BMI result Body Mass Index 30.6 Labs 12/16/22 07:17 12/16/22 07:17 Labs: Laboratory Results - last 48 hr 12/16/22 12/18/22 07:17 13:51 Smear Path Review SEE NOTE Ammonia 32 Imaging Radiology Impressions: ITS Impressions Chest X-Ray 12/14/22 02:36 IMPRESSION: * Endotracheal tube terminates 1.5 cm above the nazia. * Enteric tube terminates in the stomach. * Mild bronchial wall thickening and right perihilar streaky opacities may represent bronchitis and/or atypical infection. Mental Status Exam Mental Status Exam Patient Appearance: Well Grooomed Level of Consciousness: Awake and Alert Patient Behavior: Talkative and Cooperative Mood Description: Anxious and Sad Speech Pattern: Delayed Thought Process: Slowed Thinking Thought Content: positive for Circumstantial and positive for Tangential Judgement: Fair Medications Medications Current Medications Buprenorphine/Naloxone (Buprenorphine/Naloxone 8/2 Mg Film) 1 film SUBLINGUAL BID@0900,1600 [facility] Chlorhexidine Gluconate (Chlorhexidine Gluc Oral Rinse 15 Ml Mouthwash) 15 ml BUCCAL TID [facility] Last Admin: 12/18/22 09:04 Dose: 15 ml Folic Acid (Folic Acid 1 Mg Tablet) 1 mg PO DAILY [facility] Stop: 12/19/22 08:59 Last Admin: 12/18/22 09:02 Dose: 1 mg Ceftriaxone Sodium 1 gm/ (Sodium Chloride) 50 mls @ 100 mls/hr IV Q24H [facility] Stop: 12/20/22 09:29 Last Infusion: 12/18/22 09:49 Dose: Infused Lactulose (Lactulose 20 Gm/30 Ml Solution) 30 gm PO BID [facility] Last Admin: 12/18/22 12:37 Dose: 30 gm Multivitamins/Vitamin C (Multivitamin Tablet) 1 tab PO DAILY [facility] Stop: 12/19/22 08:59 Last Admin: 12/18/22 09:02 Dose: 1 tab Ondansetron HCl (Ondansetron Hcl 4 Mg/2 Ml Vial) 4 mg IVPUSH Q4H PRN PRN Reason: Nausea and Vomiting Last Admin: 12/18/22 09:17 Dose: 4 mg Pharmacy Consult (Consult Rx Etoh Phenob Im/Po) 1 each MISCELLANE ONCE PRN PRN Reason: Consult order Phenobarbital (Phenobarbital 15 Mg Tablet) 15 mg PO BID [facility] Stop: 12/19/22 21:01 Last Admin: 12/18/22 09:02 Dose: 15 mg Phenobarbital (Phenobarbital 15 Mg Tablet) 15 mg PO DAILY [facility]; Protocol Stop: 12/21/22 09:01 Thiamine HCl (Thiamine Hcl 100 Mg Tablet) 100 mg PO DAILY [facility] Stop: 12/19/22 08:59 Last Admin: 12/18/22 09:02 Dose: 100 mg Zolpidem Tartrate (Zolpidem Tartrate 5 Mg Tablet) 5 mg PO BEDTIME PRN PRN Reason: Insomnia Last Admin: 12/17/22 22:27 Dose: 5 mg Allergies Allergies Allergy/AdvReac Type Severity Reaction Status Date / Time aspirin Allergy Unknown Verified 12/13/22 19:23 grapefruit Allergy Unknown Verified 12/15/22 04:12 Assessment & Plan Assessment & Plan (1) Opioid use disorder: Status: Acute Code(s): F11.90 - Opioid use, unspecified, uncomplicated Assessment and Plan: * subxone restarted at 8mg in AM and 4mg in afternoon (compromise as patient wanted to d/c afternoon dose, however still experiencing cravings) * already connected to [facility] treatment providers--will continue with [facility]. Discussed possibility of Sublocade, patient hesitant--will discuss with outpatient team * take home narcan at time of discharge (2) Alcohol use disorder, severe, dependence: Status: Acute Code(s): F10.20 - Alcohol dependence, uncomplicated Assessment and Plan: * patient not entirely clear. Ammonia level checked and WNL * reinforced risks with combining alcohol with any medications, but ziggy ambien. * challenging to make clinical plan with patient as it was unclear if she was fully absorbing information being presented. Total time managing care of this patient today __50_ minutes. [facility] Social History Social History Patient Tobacco Use Status: Current everyday Tobacco user Smoked in Last 30 Days: Yes Use of substances other than those prescribed or required for medical reasons: Yes Substance Use Type: Crack/Cocaine and Heroin Substance Use Frequency: Daily Last Used Substance: Days (ago) Currently Displaying Signs/Symptoms of Drug Intoxication Withdrawal: No Advance Directives: No Advance Directives Information Provided: No Nutrition Risks: No Nutritional Risk Patient : No service: No
[2022-12-18 15:50] VITALS: BP 150/89; PULSE 79; RESP 18; TEMP 36.6; O2SAT 99
[2022-12-18 19:23] VITALS: BP 139/87; PULSE 67; RESP 18; TEMP 36.2; O2SAT 99
[2022-12-18] MEDS: Zolpidem Tartrate 5 MG TABLET PO ×2 (22:08→22:11)
[2022-12-19] VITALS (7 sets, daily range): BP systolic 118–144; BP diastolic 61–78; PULSE 64–89; RESP 16–20; TEMP 36.2–36.8; O2SAT 96–100
[2022-12-19] MEDS: PHENobarbitaL 15 MG TABLET PO (10:18)
[2022-12-19] MEDS: Chlorhexidine Gluc Oral Rinse 15 ML MOUTHWASH BUCCAL ×2 (10:18→18:10)
[2022-12-19] MEDS: cefTRIAXone sodium 1 GM in 0.9 % Sodium Chloride 50 ML IV (11:07)
[2022-12-19] MEDS: Bictegrav/Emtricit/Tenofov Ala TABLET 1 TAB PO (11:30)
[2022-12-19] MEDS: SUMAtriptan succinate 25 MG TABLET PO ×2 (12:05→22:52)
[2022-12-19] MEDS: Buprenorphine/Naloxone 8/2 mg FILM 1 FILM SUBLINGUAL (13:48)
--- NOTE | 2022-12-19 14:06 | HO.PM.IMPN ---
Subjective Subjective Date of Service: 12/19/22 Interval History: Feels nervous, anxious about going home due to withdrawal symptoms on Suboxone, complaining migraine headache requesting for home medications sumatriptan denies visual symptoms, no weakness numbness no nausea, no vomiting tolerating diet, no shortness of breath, no cough complaining of persistent urinary burning, no back pain, no fevers, no chills. Review of Systems All other system reviewed and negative. Physical Exam Vital Signs: Vital Signs: Last Vital Signs Temp 97.8 F 12/19/22 11:49 Pulse 89 12/19/22 11:49 Resp 20 12/19/22 11:49 BP 144/74 H 12/19/22 11:49 Pulse Ox 99 12/19/22 11:49 O2 Del Method Room Air 12/19/22 11:49 O2 Flow Rate 1 12/16/22 06:00 FiO2 98 12/19/22 00:00 BMI result Body Mass Index 30.6 Const: Other: General awake alert x3, in no acute distress. Neck no JVD. CVS regular rate rhythm, Respiratory lungs clear to auscultation, no respiratory distress, no wheeze, no rhonchi. Gastrointestinal abdomen soft, non tender, bowel sounds audible, no guarding , no rigidity. Extremities no edema. Neuro nonfocal Skin no rash Psych appropriate affect Objective Data Active Medications Bictegravir/Emtricitabine/Tenofovir (Bictegrav/Emtricit/Tenofov Ala Tablet) 1 tab PO DAILY [facility] Last Admin: 12/19/22 11:30 Dose: 1 tab Documented By: KRISTINA Buprenorphine/Naloxone (Buprenorphine/Naloxone 8/2 Mg Film) 1 film SUBLINGUAL BID@0900,1600 [facility] Last Admin: 12/19/22 13:48 Dose: 1 film Documented By: KRISTINA Chlorhexidine Gluconate (Chlorhexidine Gluc Oral Rinse 15 Ml Mouthwash) 15 ml BUCCAL TID [facility] Last Admin: 12/19/22 10:18 Dose: 15 ml Documented By: TED Ceftriaxone Sodium 1 gm/ (Sodium Chloride) 50 mls @ 100 mls/hr IV Q24H [facility] Stop: 12/20/22 09:29 Last Infusion: 12/19/22 12:09 Dose: Infused Documented By: KRISTINA Lactulose (Lactulose 20 Gm/30 Ml Solution) 30 gm PO BID [facility] Last Admin: 12/19/22 12:10 Dose: Not Given Documented By: KRISTINA Non-Admin Reason: Patient Refused Multivitamins/Vitamin C (Multivitamin Tablet) 1 tab PO DAILY [facility] Ondansetron HCl (Ondansetron Hcl 4 Mg/2 Ml Vial) 4 mg IVPUSH Q4H PRN PRN Reason: Nausea and Vomiting Last Admin: 12/18/22 09:17 Dose: 4 mg Documented By: ALEXANDER Pharmacy Consult (Consult Rx Etoh Phenob Im/Po) 1 each MISCELLANE ONCE PRN PRN Reason: Consult order Phenobarbital (Phenobarbital 15 Mg Tablet) 15 mg PO BID [facility] Stop: 12/19/22 21:01 Last Admin: 12/19/22 10:18 Dose: 15 mg Documented By: TED Phenobarbital (Phenobarbital 15 Mg Tablet) 15 mg PO DAILY [facility]; Protocol Stop: 12/21/22 09:01 Rifaximin (Rifaximin 550 Mg Tablet) 550 mg PO BID [facility] Zolpidem Tartrate (Zolpidem Tartrate 5 Mg Tablet) 5 mg PO BEDTIME PRN PRN Reason: Insomnia Last Admin: 12/18/22 22:11 Dose: 5 mg Documented By: TED Labs 12/16/22 07:17 12/16/22 07:17 Labs: Laboratory Results - last 24 hr 12/18/22 13:51 Ammonia 32 Microbiology Microbiology Results: Microbiology 12/14/22 05:28 Blood Culture - Final Blood - Venous No growth after 5 days. 12/14/22 05:28 Blood Culture - Final Blood - Venous No growth after 5 days. Assessment and Plan (1) Alcohol withdrawal: Status: Acute (2) UTI (urinary tract infection): Status: Acute Plan The patient is [age]-year-old female presents from local rehab with alcohol withdrawal/opiate withdrawal originally admitted to ICU. Started on phenobarb protocol and progressed as hoped. 1. Alcohol withdrawal -on phenobarb protocol, no tremors, strongly advised to abstain from alcohol patient agreed to followed 12 step program, being followed by care team, patient is status post ICU admit and intubation to manage withdrawal symptoms, tolerating diet continue lactulose and rifaximin. 2. UTI (E coli) -continue IV ceftriaxone day 5 persistent urinary burning , blood cultures negative, urine culture grew E coli sensitive to ceftriaxone, encourage fluids 3. Opioid use disorder continue Suboxone, being followed by Addiction Team 4. History of HIV/aids resume HAART therapy, chronic pancytopenia stable. 5. Migraine headache will give sumatriptan 25 mg x 1 and follow -Lovenox -full code Requires ongoing hospitalization to complete phenobarb protocol for alcohol withdrawal and safe disposition, patient is very nervous going home due to withdrawal symptoms encourage ambulation. Time Spent With Patient Time: Total time managing care of this patient today ____ minutes. Quality Stroke Does the patient have a stroke diagnosis?: No VTE Prior VTE?: No VTE Risk Level:: Medical - moderate - high VTE Device Contraindication: N/A - Device Ordered VTE Drug Contraindication: Treatment Not Indicated
--- NOTE | 2022-12-19 16:12 | MHC.RECOVSUP ---
Met with pt in 486 to review recovery resources. Pt informs she is worried about going home tomorrow and needed some additional supports from a success coach. T/W took pt information to put in a success coach referral to contact pt upon discharge. Pt has no other questions or concerns at this time.
[2022-12-19] MEDS: rifAXIMin 550 MG TABLET PO (20:38)
[2022-12-19] MEDS: Lactulose 20 GM/30 ML SOLUTION 30 GM PO (20:38)
[2022-12-19] MEDS: Zolpidem Tartrate 5 MG TABLET PO (22:51)
[2022-12-20 04:00] VITALS: BP 119/68; PULSE 72; RESP 16; TEMP 36.9; O2SAT 97
[2022-12-20 07:19] VITALS: BP 122/59; PULSE 70; RESP 16; TEMP 37.1; O2SAT 97
[2022-12-20] MEDS: PHENobarbitaL 15 MG TABLET PO (08:44)
[2022-12-20] MEDS: Multivitamin TABLET 1 TAB PO (08:44)
[2022-12-20] MEDS: Buprenorphine/Naloxone 8/2 mg FILM 1 FILM SUBLINGUAL ×2 (08:44→15:25)
[2022-12-20] MEDS: Chlorhexidine Gluc Oral Rinse 15 ML MOUTHWASH BUCCAL ×3 (08:44→20:34)
[2022-12-20] MEDS: Bictegrav/Emtricit/Tenofov Ala TABLET 1 TAB PO (08:44)
--- NOTE | 2022-12-20 09:25 | PM.EVENT ---
Event Note Date of Service: 12/19/22 Event Note: Met with patient regarding need for suboxone script upon discharge. She informed t/w that she does not need one, as her outpatient provider will provide script, that one is already at pharmacy from her current OP provider. Time Spent With Patient Time: Total time managing care of this patient today __10__ minutes.
--- NOTE | 2022-12-20 10:48 | P.PNIM_ITS ---
Subjective Subjective Date of Service: 12/20/22 Interval History: Concern about returning home today's since is working and does not want to to be alone at home , feels anxious and nervous denies headache, no lightheadedness, no tremors slept well last night, no nausea no vomiting tolerating diet. Review of Systems All other system reviewed and negative. Physical Exam 2 Vital Signs: Vital Signs: Last Vital Signs Temp 98.8 F 12/20/22 07:19 Pulse 70 12/20/22 07:19 Resp 16 12/20/22 07:19 BP 122/59 L 12/20/22 07:19 Pulse Ox 97 12/20/22 07:19 O2 Del Method Room Air 12/20/22 07:19 O2 Flow Rate 1 12/16/22 06:00 FiO2 98 12/19/22 00:00 BMI result Body Mass Index 30.6 Const: Other: General awake alert x3, in no acute distress. Neck no JVD. CVS regular rate rhythm, Respiratory lungs clear to auscultation, no respiratory distress, no wheeze, no rhonchi. Gastrointestinal abdomen soft, non tender, bowel sounds audible, no guarding , no rigidity. Extremities no edema. Neuro non focal Skin no rash Psych appropriate affect Objective Data Active Medications Bictegravir/Emtricitabine/Tenofovir (Bictegrav/Emtricit/Tenofov Ala Tablet) 1 tab PO DAILY [facility] Last Admin: 12/20/22 08:44 Dose: 1 tab Documented By: SETH Buprenorphine/Naloxone (Buprenorphine/Naloxone 8/2 Mg Film) 1 film SUBLINGUAL BID@0900,1600 [facility] Last Admin: 12/20/22 08:44 Dose: 1 film Documented By: SETH Chlorhexidine Gluconate (Chlorhexidine Gluc Oral Rinse 15 Ml Mouthwash) 15 ml BUCCAL TID [facility] Last Admin: 12/20/22 08:44 Dose: 15 ml Documented By: SETH Lactulose (Lactulose 20 Gm/30 Ml Solution) 30 gm PO BID [facility] Last Admin: 12/20/22 08:45 Dose: Not Given Documented By: SETH Non-Admin Reason: Patient Refused Multivitamins/Vitamin C (Multivitamin Tablet) 1 tab PO DAILY [facility] Last Admin: 12/20/22 08:44 Dose: 1 tab Documented By: SETH Ondansetron HCl (Ondansetron Hcl 4 Mg/2 Ml Vial) 4 mg IVPUSH Q4H PRN PRN Reason: Nausea and Vomiting Last Admin: 12/18/22 09:17 Dose: 4 mg Documented By: ALEXANDER Pharmacy Consult (Consult Rx Etoh Phenob Im/Po) 1 each MISCELLANE ONCE PRN PRN Reason: Consult order Phenobarbital (Phenobarbital 15 Mg Tablet) 15 mg PO DAILY [facility]; Protocol Stop: 12/21/22 09:01 Last Admin: 12/20/22 08:44 Dose: 15 mg Documented By: SETH Rifaximin (Rifaximin 550 Mg Tablet) 550 mg PO BID [facility] Last Admin: 12/20/22 08:45 Dose: Not Given Documented By: SETH Non-Admin Reason: Patient Refused Zolpidem Tartrate (Zolpidem Tartrate 5 Mg Tablet) 5 mg PO BEDTIME PRN PRN Reason: Insomnia Last Admin: 12/19/22 22:51 Dose: 5 mg Documented By: CHRISTINESU Labs 12/16/22 07:17 12/16/22 07:17 Microbiology Microbiology Results: Microbiology 12/14/22 05:28 Blood Culture - Final Blood - Venous No growth after 5 days. 12/14/22 05:28 Blood Culture - Final Blood - Venous No growth after 5 days. Assessment and Plan (1) Alcohol withdrawal: Status: Acute (2) UTI (urinary tract infection): Status: Acute Plan The patient is [age]-year-old female presents from local rehab with alcohol withdrawal/opiate withdrawal originally admitted to ICU. Started on phenobarb protocol and progressed as hoped. 1. Alcohol withdrawal -on phenobarb protocol, no tremors, strongly advised to abstain from alcohol patient agreed to followed 12 step program, being followed by care team, patient is status post ICU admit and intubation to manage withdrawal symptoms, tolerating diet continue lactulose and rifaximin. Being followed closely by recovery team, success coach referral made to contact patient upon discharge 2. UTI (E coli) -finish course of IV ceftriaxone burning resolved, blood cultures negative, urine culture grew E coli sensitive to ceftriaxone, encourage fluids 3. Opioid use disorder continue Suboxone, being followed by Addiction Team 4. History of HIV/aids resume HAART therapy, chronic pancytopenia stable. 5. Migraine headache resolved status post sumatriptan 25 mg x 1 -Lovenox -full code Requires ongoing hospitalization to complete phenobarb protocol for alcohol withdrawal and safe disposition, patient is very nervous going home due to withdrawal symptoms encourage ambulation. Time Spent With Patient Time: Total time managing care of this patient today ____ minutes. Quality Stroke Does the patient have a stroke diagnosis?: No VTE Prior VTE?: No VTE Risk Level:: Medical - moderate - high VTE Device Contraindication: N/A - Device Ordered VTE Drug Contraindication: Treatment Not Indicated
[2022-12-20 11:36] VITALS: BP 117/76; PULSE 80; RESP 16; TEMP 36.4; O2SAT 97
[2022-12-20 15:13] VITALS: BP 138/70; PULSE 77; RESP 20; TEMP 36.3; O2SAT 99
[2022-12-20 19:18] VITALS: BP 143/76; PULSE 82; RESP 20; TEMP 36.9; O2SAT 100
[2022-12-20] MEDS: Lactulose 20 GM/30 ML SOLUTION 30 GM PO (20:31)
[2022-12-20] MEDS: rifAXIMin 550 MG TABLET PO (20:31)
[2022-12-20] MEDS: Zolpidem Tartrate 5 MG TABLET PO (22:27)
[2022-12-20 23:32] VITALS: BP 123/82; PULSE 78; RESP 19; TEMP 36.7; O2SAT 98
[2022-12-21 03:48] VITALS: BP 111/58; PULSE 85; RESP 16; TEMP 37.1; O2SAT 97
[2022-12-21 07:50] VITALS: BP 125/62; PULSE 81; RESP 18; TEMP 36.3; O2SAT 98
[2022-12-21] MEDS: Bictegrav/Emtricit/Tenofov Ala TABLET 1 TAB PO (09:24)
[2022-12-21] MEDS: Multivitamin TABLET 1 TAB PO (09:25)
[2022-12-21] MEDS: PHENobarbitaL 15 MG TABLET PO (09:25)
[2022-12-21] MEDS: rifAXIMin 550 MG TABLET PO (09:25)
[2022-12-21] MEDS: Buprenorphine/Naloxone 8/2 mg FILM 1 FILM SUBLINGUAL (09:26)
[2022-12-21] MEDS: Chlorhexidine Gluc Oral Rinse 15 ML MOUTHWASH BUCCAL (09:26)
--- NOTE | 2022-12-21 11:37 | MHC.CM.PN ---
Second IMM given 12/21, pt already left the building, copy placed in chart. Pt medically cleared for D/C to [facility] for STR. Transportation via [facility].
--- NOTE | 2022-12-21 12:22 | MHC.CM.PN ---
Pt medically cleared for D/C home self-care. Pts to transport her home.
--- NOTE | 2022-12-21 15:03 | PM.DS ---
DS: Providers Provider Date of Service: 12/22/22 Date of admission: 12/13/22 23:53 Primary care physician: Unknown Physician Consults: 12/16/22 13:20 Consult to Care Team Routine Comment: Reason for consultation: [facility] Referral DS: Diagnosis Discharge Diagnosis (1) Alcohol withdrawal: Status: Acute (2) UTI (urinary tract infection): Status: Acute DS: Summary Hospital Course Hospital Course: History of presenting illness: Date of Service: 12/14/22 Attending physician on admission: Tre Tinoco Chief Complaint: Alcohol withdrawal Ms. Mauricio is a 47-year-old female with a history of alcohol and opiate abuse on suboxone, Aids, Asthma, cirrhosis, Hep C, HTN, portal htn gastropathy, tubular adenoma of the colon who was sent to ER today from [facility] for withdrawal. On arrival, the pt stated that she was withdrawing from alcohol and opiates. She denied dizziness, abdominal pain, nausea vomiting, chest pain, shortness of breath, or any other symptoms. At the facility the patient was given 1 mg of Ativan and 100 mg of Benadryl. Laboratory data significant for?plt 52, PTT 19.0, INR 1.6, PTT 38.4,? Tbili 4.1, AST 79, ALT 36, ETOH < 10. ED Course: The patient? was given 5 mg of Haldol IM, 5 mg Ambien, lorazepam 2 mg p.o., phenobarb 219 mg IM, Zyprexa 10 mg IM, lorazepam 2 mg IV, thiamine 100 mg. Hospital course: [age]-year-old female presents from local rehab with alcohol withdrawal/opiate withdrawal originally admitted to ICU. Started on phenobarb protocol and progressed as hoped. 1. In regard to Alcohol withdrawal initially patient was noted to be agitated required intubation and ICU admission, was treated with lorazepam, Haldol, Zyprexa subsequently extubated and transferred to medical floor, treated with phenobarb protocol and was followed closely by assistant tennis coach, she was continued on lactulose and rifaximin, patient has been strongly advised to abstain from alcohol, she is being discharged home and will be followed closely by assistant tennis coach. She is tolerating diet and ambulating in hallways unsteady gait. 2. UTI (E coli) -finished course of IV ceftriaxone , blood cultures negative, urine culture grew E coli sensitive to ceftriaxone. 3. Opioid use disorder continue Suboxone, seen by addiction team recommend to continue Suboxone. 4. History of HIV/aids continue HAART therapy, chronic pancytopenia stable. 5. Migraine headache resolved continue sumatriptan 25 mg as needed. Time Spent with Patient Time attestation: Total time managing care of this patient today ____ minutes. Discharge coordination time: Greater than 30 minutes Quality: Safe Use of Opioids Does Pt have an Active Cancer Diagnosis on the Problem List?: No Quality: Stroke Does the patient have a stroke diagnosis?: No Physical Exam Vital Signs: Vital Signs: Last Vital Signs Temp 97.3 F 12/21/22 07:50 Pulse 81 12/21/22 07:50 Resp 18 12/21/22 07:50 BP 125/62 12/21/22 07:50 Pulse Ox 98 12/21/22 07:50 O2 Del Method Room Air 12/21/22 07:50 O2 Flow Rate 1 12/16/22 06:00 FiO2 98 12/19/22 00:00 BMI result Body Mass Index 30.6 Const: Other: General awake alert x3, in no acute distress. Neck no JVD. CVS regular rate rhythm, Respiratory lungs clear to auscultation, no respiratory distress, no wheeze, no rhonchi. Gastrointestinal abdomen soft, non tender, bowel sounds audible, no guarding , no rigidity. Extremities no edema. Neuro non focal Skin no rash Psych appropriate affect Discharge Plan Discharge Anticipated Discharge Date/Time: 12/21/22 10:23 Patient Disposition: Home, Self-Care Discharge Diagnosis: Alcohol withdrawal UTI Opioid use disorder Referrals: Physician,Unknown J [Primary Care Provider] - 1 Week Discharge Medications: New lactulose 20 gram/30 mL Solution 30 g PO BID Qty: 2880 0RF buprenorphine-naloxone [Suboxone] 8-2 mg film 1 film sublingual BID Qty: 4 0RF Continued multivitamin Tablet 1 tab PO DAILY furosemide 40 mg tablet 40 mg PO DAILY clonidine HCl 0.1 mg tablet 0.1 mg PO TID PRN (Reason: anxiety) benzoyl peroxide 2.5 % gel 1 appl topical BID PRN (Reason: Acne) spironolactone 100 mg tablet 100 mg PO DAILY acetaminophen 500 mg tablet 500 mg PO Q4H PRN (Reason: pain) pantoprazole 20 mg tablet,delayed release (DR/EC) 20 mg PO DAILY@0630 clindamycin phosphate 1 % gel 1 appl topical DAILY Rx Instructions: thin layer zolpidem 5 mg tablet 5 mg PO BEDTIME PRN (Reason: insomnia) escitalopram oxalate 10 mg tablet 10 mg PO DAILY Xifaxan 550 mg tablet 550 mg PO BID buprenorphine-naloxone [Suboxone] 8-2 mg film 2 film sublingual DAILY Biktarvy 50-200-25 mg tablet 1 tab PO DAILY Discharge Orders: Discharge Order (Routine); Ordered 12/21/22 Ordered By: Jenise Molina Diet: Advance to usual diet Activity on Discharge: As tolerated Stand Alone Forms: Patient Portal Discharge page Care Plan Goals: Strongly recommend to abstain from alcohol and follow-up with assistant tennis coach Take lactulose daily Continue Suboxone Finished course of antibiotics for urine infection Health Concerns: Resume all home medications as before Plan of Treatment: Call PCP for follow-up Assessment: As above Discharge Date/Time: 12/21/22 12:27
--- NOTE | 2022-12-24 04:02 | PC.NURSE ---
Late entry for 12/18/2022: Pt. recieved only the Zopidem 5mg and Phenobarbitol 15 mg as ordered at 2208. 2211 documentation is duplicate charting.
== END 2022-12-21 12:27 | disposition home or self-care (01) | DRG 463 ==
LOC: HO.ED 23:05 → HO.EDOVER 23:59 → HO.ICU 12-14 00:27 → HO.IMC 12-16 12:42
PROVIDERS: Hospitalist; Internal Medicine Critical Care Medicine; Internal Medicine Pulmonary Disease; Physician Assistant Medical; Admitting Provider Nurse Practitioner Family; Emergency Provider Emergency Medicine; Visit Provider Hospitalist
DX: N39.0 Urinary tract infection, site not specified (principal); B20 Human immunodeficiency virus [HIV] disease; D69.59 Other secondary thrombocytopenia; F10.239 Alcohol dependence with withdrawal, unspecified; F11.23 Opioid dependence with withdrawal; B96.20 Unspecified Escherichia coli [E. coli] as the cause of diseases classified elsewhere; I95.9 Hypotension, unspecified; G43.909 Migraine, unspecified, not intractable, without status migrainosus; F17.210 Nicotine dependence, cigarettes, uncomplicated; Z71.6 Tobacco abuse counseling; Z20.822 Contact with and (suspected) exposure to COVID-19; Z79.899 Other long term (current) drug therapy
CPT/HCPCS: 0241U; 36415; 71045; 80053; 80307; 81001; 82140; 82803; 83540; 83605; 83735; 84100; 84702; 85025; 85610; 85730; 86850; 86900; 86901; 87040; 87086; 87088; 87186; 92526; 92610; 93005; 94002; 94003; 94799; 99285; C1758; J0696; J2060; J2359; J2405; J2560; J3411; P9047

== ENCOUNTER → 2022-12-13 23:53 | Outpatient (BNV) | payer OTHER, SELFPAY | PROVIDERS: Admitting Provider Nurse Practitioner Family; Emergency Provider Emergency Medicine; Visit Provider Internal Medicine Critical Care Medicine | DX: F10.939 Alcohol use, unspecified with withdrawal, unspecified (principal); N39.0 Urinary tract infection, site not specified | CPT/HCPCS: 31500; 99291 ==

== ENCOUNTER → 2022-12-13 23:53 | Outpatient (BNV) | payer OTHER, SELFPAY | PROVIDERS: Admitting Provider Nurse Practitioner Family; Emergency Provider Emergency Medicine; Visit Provider Hospitalist | DX: F10.939 Alcohol use, unspecified with withdrawal, unspecified (principal); N39.0 Urinary tract infection, site not specified | CPT/HCPCS: 99232; 99233; 99239 ==

== ENCOUNTER → 2022-12-13 23:53 | Outpatient (BNV) | payer OTHER, SELFPAY | PROVIDERS: Admitting Provider Nurse Practitioner Family; Emergency Provider Emergency Medicine; Visit Provider Nurse Practitioner Psychiatric/Mental Health | DX: F11.20 Opioid dependence, uncomplicated (principal); F10.20 Alcohol dependence, uncomplicated | CPT/HCPCS: 99231; 99499 ==

== ENCOUNTER 2023-04-17 12:04 | Emergency (ER) | payer OTHER, SELFPAY ==
--- NOTE | ~2023-04-17 | CT_ITS ---
EXAM: CT scan of the head and cervical spine. Chest 2 views and left RIBS 3 views INDICATION: Reason for Exam fall, L neck pain TECHNIQUE: A noncontrast CT scan was performed from the skull base to the vertex. A noncontrast CT scan of the cervical spine was performed from the base of the skull through T1 at 2.5 mm and 1.25 mm collimation. Coronal and sagittal reformats were obtained at the acquisition workstation. This CT examination was performed using dose optimization techniques as appropriate, variously including the following: *Automated exposure control *Adjustment of mA and/or kV according to patient size (this includes techniques or standardized protocols for targeted exams where dose is matched to indication/reason for exam; i.e. extremities or head) *Use of iterative reconstruction technique DLP: 568 and 337 mGy-cm COMPARISON: None FINDINGS: Head: There is no evidence of acute intracranial hemorrhage or territorial infarction. Hunter-white matter differentiation is preserved. No abnormal mass effect or midline shift. No extra-axial fluid collections. No abnormal attenuation is demonstrated within the brain parenchyma. Scattered periventricular and deep white matter hypodensities consistent with microangiopathy. The ventricles and sulcal spaces are proportional without hydrocephalus. Proportional prominence of the ventricles and sulcal spaces. No acute osseous or soft tissue abnormalities. The mastoid air cells and visualized portions of the paranasal sinuses are notable for diffuse ethmoid sinus disease.. Cervical Spine: The atlantooccipital and atlantoaxial articulations remain well aligned. Reversal of the normal cervical lordosis. Otherwise, there is anatomic alignment of the vertebral bodies and posterior elements. No evidence of acute fracture or subluxation. Diffuse degenerative disc disease of moderate severity with disc space narrowing throughout the mid and lower cervical spine. Bulky anterior osteophytes and small posterior osteophytes particularly at C6-C7.. There is no prevertebral soft tissue swelling. The thyroid gland and remaining cervical soft tissues are normal in appearance. The lung apices demonstrate no abnormalities. CT/CT cervical spine wo IV con IMPRESSION: No acute intracranial pathology. No acute fracture subluxation cervical spine. Chest and left rib imaging demonstrates no deformity. Small granuloma left upper lobe laterally. No pneumothorax. No displaced rib fracture grossly. IMPRESSION: No acute deformity of the left ribs and no acute chest pathology.
--- NOTE | 2023-04-17 12:22 | ED.FALL ---
HPI - Fall General Chief Complaint: Fall Stated Complaint: fall Time Seen by Provider: 04/17/23 13:01 Source: patient and family Mode of arrival: ambulatory Limitations: no limitations History of Present Illness HPI Narrative: 48-year-old female with a history of alcohol and opiate abuse, HIV, asthma, liver cirrhosis, hepatitis-C, hypertension presents to the ER with complaints of fall with head and neck strike yesterday. patient reports she was getting out of bed when she lost her balance hitting left side of her head and neck on a bureau. There was no loss of consciousness. She denies AC therapy use. She reports initially she had a headache and some mild disorientation but this seems improved. Today she woke with left-sided head and neck pain. Also complaining of left sided back pain. she denies any chest pain, shortness of breath, vomiting, diarrhea, vision changes, dizziness, urinary symptoms. She arrives ambulatory. Related Data Home Medications Medication Instructions Recorded Confirmed acetaminophen 500 mg tablet 500 mg PO Q4H PRN pain 12/14/22 12/14/22 benzoyl peroxide 2.5 % topical gel 1 appl topical BID PRN Acne 12/14/22 12/14/22 bictegravir 50 mg-emtricitabine 1 tab PO DAILY 12/14/22 12/14/22 200 mg-tenofovir alafenam 25 mg tablet (Biktarvy) buprenorphine 8 mg-naloxone 2 mg 2 film sublingual DAILY 12/14/22 12/14/22 sublingual film (Suboxone) clindamycin phosphate 1 % topical 1 appl topical DAILY 12/14/22 12/14/22 gel clonidine HCl 0.1 mg tablet 0.1 mg PO TID PRN anxiety 12/14/22 12/14/22 escitalopram oxalate 10 mg tablet 10 mg PO DAILY 12/14/22 12/14/22 furosemide 40 mg tablet 40 mg PO DAILY 12/14/22 12/14/22 multivitamin 1 tab PO DAILY 12/14/22 12/14/22 pantoprazole 20 mg tablet,delayed 20 mg PO DAILY@0630 12/14/22 12/14/22 release rifaximin 550 mg tablet (Xifaxan) 550 mg PO BID 12/14/22 12/14/22 spironolactone 100 mg tablet 100 mg PO DAILY 12/14/22 12/14/22 zolpidem 5 mg tablet 5 mg PO BEDTIME PRN insomnia 12/14/22 12/14/22 Previous Rx's Medication Instructions Recorded buprenorphine 8 mg-naloxone 2 mg 1 film sublingual BID #4 ea 12/21/22 sublingual film (Suboxone) lactulose 20 gram/30 mL oral 30 g (45 mL) PO BID #2,880 mL 12/21/22 solution Allergies Allergy/AdvReac Type Severity Reaction Status Date / Time aspirin Allergy Unknown Verified 04/17/23 12:27 grapefruit Allergy Unknown Verified 04/17/23 12:27 Review of Systems Review of Systems: Yes all other systems are reviewed and are negative Constitutional: Constitutional: Reports no additional constitutional complaints, Denies body ache(s), Denies chills, Denies fever(s), Reports headache(s) and Denies weakness Eyes: Eyes: Reports no additional eye complaints and Denies change in vision ENT: Reports system reviewed and no additional complaints, except as documented, Denies dizziness, Reports headache(s), Denies nasal congestion, Denies nasal discharge and Reports neck pain Cardiovascular: Cardiovascular: Reports no additional cardiovascular complaints, Denies chest pain, Denies leg edema and Denies dyspnea Respiratory: Respiratory: Reports no additional respiratory complaints, Denies cough and Denies dyspnea Gastrointestinal: Gastrointestinal: Reports no additional gastrointestinal complaints, Denies abdominal pain, Denies diarrhea, Denies nausea and Denies vomiting Genitourinary: Genitourinary: Reports no additional female genitourinary complaints and Denies urinary incontinence Musculoskeletal: Musculoskeletal: Reports no additional musculoskeletal complaints, Denies back pain, Denies arthralgias, Denies joint swelling, Reports neck pain, Denies numbness and Denies tingling Integumentary/Breasts: Skin/Breast: Reports system reviewed and no additional complaints, except as docu and Denies rash Neurologic: Reports system reviewed and no additional complaints, except as documented, Denies Abnormal speech present, Denies dizziness, Reports headache(s), Denies numbness, Denies tingling and Denies weakness PMFSH Past Medical History Attestation statement: The following information was validated with the patient. Source: old records reviewed and nursing notes reviewed Medical History Alcohol use disorder, severe, dependence Opioid use disorder Social History Social History Comment: refusing bed alarm Patient Tobacco Use Status: Current everyday Tobacco user Substance Use Type: Crack/Cocaine and Heroin Advance Directives: No Advance Directives Information Provided: No service: No Physical Exam Vital Signs: Vital Signs: Last Vital Signs Temp 97.1 F 04/17/23 14:57 Pulse 50 04/17/23 14:57 Resp 16 04/17/23 14:57 BP 106/57 L 04/17/23 14:57 Pulse Ox 96 04/17/23 14:57 O2 Del Method Room Air 04/17/23 14:57 BMI result Body Mass Index 30.6 Const: General: cooperative, healthy appearing, comfortable and no acute distress Orientation/consciousness: patient oriented x3 Limitations: no limitations HEENT: Head: Yes normal to inspection, No Casillas's sign and No raccoon eyes Ears: hearing grossly normal bilaterally and TM's normal bilaterally General nose exam: Normal external nose present Face and sinus: Yes normal facial exam Mouth: Normal oral and palatal mucosa present Throat: Yes posterior oropharynx normal Eyes: General: appearance normal, both eyes and all related structures Pupils: Equal, round and reactive pupils present Neck: Other: no cervical midline tenderness, step-offs deformities Neck: Yes normal visual inspection and Yes full ROM Neck images: 1. Mild tenderness with no swelling, ecchymosis, thrill or bruit Chest: Chest palpation & inspection: normal inspection of the chest Resp: Effort & Inspection: normal respiratory effort Auscultation: clear to auscultation bilaterally Cardio: Rate: regular rate Rhythm: regular rhythm Peripheral pulses: Peripheral pulses 2+ throughout GI: Inspection: Yes normal to inspection Palpation (GI): Soft to palpation and nontender Auscultation: normal bowel sounds Back/Spine/Pelvis: Thoracic/Lumbar Spine: thoracic and lumbar spine normal to inspection Skin: General skin exam: no rashes or lesions noted Neuro: General: patient oriented x3, moves all extremities, no focal motor deficits and normal sensation to monofilament Cranial nerves: Yes CN's II-XII intact bilaterally, Yes Equal, round and reactive pupils present, Yes Bilaterally intact EOM present, Yes Nystagmus not present, Yes Normal facial strength present and Yes Midline tongue present Cognition (Neuro): normal cognition Speech: No Abnormal speech present Gait exam (Neuro): Normal gait present Motor exam (neuro): 5/5 motor strength present throughout Sensory Exam: Normal double simultaneous stimulation for sensation Extrem: General: Yes normal to inspection, Yes no pedal edema and Yes no calf tenderness Shoulder/upper arm images: 1. mild tenderness with no ecchymosis, crepitus or deformity Course Course Course Narrative: RME: 48 year-old F w/ PMHx ETOH abuse, opiate use, presenting to the ED c/o left sided neck, ACUNA & left back pain s/p slip & fall onto bureau after getting out of bed yesterday around 12noon. Denies LOC. denies sx prior to fall +superficial abrasion to L neck, +L anterior lateral rib ttp. Head/C-spine CT, rib XR ordered Full HPI, ROS and PE to be performed by primary ED provider. Medical Decision Making Medical Decision Making MDM Narrative: 48-year-old female with a history of alcohol and opiate abuse, HIV, asthma, liver cirrhosis, hepatitis-C, hypertension presents to the ER with complaints of fall with head and neck strike yesterday. patient reports she was getting out of bed when she lost her balance hitting left side of her head and neck on a bureau. There was no loss of consciousness. She denies AC therapy use. She reports initially she had a headache and some mild disorientation but this seems improved. Today she woke with left-sided head and neck pain. Also complaining of left sided back pain. she denies any chest pain, shortness of breath, vomiting, diarrhea, vision changes, dizziness, urinary symptoms. She arrives ambulatory. the left soft tissue neck. No midline tenderness, step-offs or deformities. Normal neuro exam no focal deficits. Also some mild tenderness the left posterior ribs. Will obtain CT head and cervical spine, ribs x-ray Differential Diagnosis Differential Diagnoses: The differential diagnosis associated with the presentation includes contusion low suspicion for skull fracture, SAH, cervical fracture, intrathoracic or intra-abdominal pathology Admission/Observation Consideration of admission/observation: Escalation of care including admission/observation considered Independent Interpretation I performed an independent interpretation of an: Plain X-Ray and CT Scan Interpretation: I independently reviewed the CT scan and the x-ray and agree with the radiology report Radiology Impression Discussion of test interpretation with radiology: I have reviewed the radiologist's reading. Radiologist Impression: [facility] [address] [place] [address] CT Scan Report Signed Patient: Virginie Mauricio MR#: [id number] : 1975 Acct:[id number] Age/Sex: 48 / F ADM Date: 04/17/23 Loc: HO.ED Attending Dr: Ordering Physician: Daphne Cao Date of Service: 04/17/23 Procedure(s): CT cervical spine wo IV con Accession Number(s): [id number] cc: KAHLIL SOSA MD; Daphne Cao~ EXAM: CT scan of the head and cervical spine. Chest 2 views and left RIBS 3 views INDICATION: Reason for Exam fall, L neck pain TECHNIQUE: A noncontrast CT scan was performed from the skull base to the vertex. A noncontrast CT scan of the cervical spine was performed from the base of the skull through T1 at 2.5 mm and 1.25 mm collimation. Coronal and sagittal reformats were obtained at the acquisition workstation. This CT examination was performed using dose optimization techniques as appropriate, variously including the following: *Automated exposure control *Adjustment of mA and/or kV according to patient size (this includes techniques or standardized protocols for targeted exams where dose is matched to indication/reason for exam; i.e. extremities or head) *Use of iterative reconstruction technique DLP: 568 and 337 mGy-cm COMPARISON: None FINDINGS: Head: There is no evidence of acute intracranial hemorrhage or territorial infarction. Hunter-white matter differentiation is preserved. No abnormal mass effect or midline shift. No extra-axial fluid collections. No abnormal attenuation is demonstrated within the brain parenchyma. Scattered periventricular and deep white matter hypodensities consistent with microangiopathy. The ventricles and sulcal spaces are proportional without hydrocephalus. Proportional prominence of the ventricles and sulcal spaces. No acute osseous or soft tissue abnormalities. The mastoid air cells and visualized portions of the paranasal sinuses are notable for diffuse ethmoid sinus disease.. Cervical Spine: The atlantooccipital and atlantoaxial articulations remain well aligned. Reversal of the normal cervical lordosis. Otherwise, there is anatomic alignment of the vertebral bodies and posterior elements. No evidence of acute fracture or subluxation. Diffuse degenerative disc disease of moderate severity with disc space narrowing throughout the mid and lower cervical spine. Bulky anterior osteophytes and small posterior osteophytes particularly at C6-C7.. There is no prevertebral soft tissue swelling. The thyroid gland and remaining cervical soft tissues are normal in appearance. The lung apices demonstrate no abnormalities. CT/CT cervical spine wo IV con IMPRESSION: No acute intracranial pathology. No acute fracture subluxation cervical spine. Chest and left rib imaging demonstrates no deformity. Small granuloma left upper lobe laterally. No pneumothorax. No displaced rib fracture grossly. IMPRESSION: No acute deformity of the left ribs and no acute chest pathology. Independent Historian Clinical information obtained from an independent historian. History obtained from or confirmed by: Spouse Discharge Plan Discharge Clinical Impression: Contusion of neck, Back contusion Patient Disposition: Home, Self-Care Instructions: Contusion in Adults (ED) Additional Instructions: heat or ice to the area gentle stretching Tylenol for pain your x-rays show no fracture Your CT scan shows no fractures and no bleeding Prescriptions: No Action multivitamin Tablet 1 tab PO DAILY furosemide 40 mg tablet 40 mg PO DAILY clonidine HCl 0.1 mg tablet 0.1 mg PO TID PRN (Reason: anxiety) benzoyl peroxide 2.5 % gel 1 appl topical BID PRN (Reason: Acne) spironolactone 100 mg tablet 100 mg PO DAILY acetaminophen 500 mg tablet 500 mg PO Q4H PRN (Reason: pain) pantoprazole 20 mg tablet,delayed release (DR/EC) 20 mg PO DAILY@0630 clindamycin phosphate 1 % gel 1 appl topical DAILY Rx Instructions: thin layer zolpidem 5 mg tablet 5 mg PO BEDTIME PRN (Reason: insomnia) escitalopram oxalate 10 mg tablet 10 mg PO DAILY Xifaxan 550 mg tablet 550 mg PO BID buprenorphine-naloxone [Suboxone] 8-2 mg film 2 film sublingual DAILY Biktarvy 50-200-25 mg tablet 1 tab PO DAILY lactulose 20 gram/30 mL Solution 30 g PO BID Qty: 2880 0RF buprenorphine-naloxone [Suboxone] 8-2 mg film 1 film sublingual BID Qty: 4 0RF Referrals: Kahlil Sosa MD [Primary Care Provider] - 1 week
[2023-04-17 12:23] VITALS: BP 112/58; PULSE 56; RESP 18; TEMP 36.4; O2SAT 98; BMI 30.6
[2023-04-17 14:57] VITALS: BP 106/57; PULSE 50; RESP 16; TEMP 36.2; O2SAT 96
== END 2023-04-17 15:39 | disposition home or self-care (01) ==
PROVIDERS: Emergency Provider Internal Medicine; PCP Internal Medicine
DX: S10.93XA Contusion of unspecified part of neck, initial encounter (principal); S20.222A Contusion of left back wall of thorax, initial encounter; W06.XXXA Fall from bed, initial encounter; Y93.89 Activity, other specified; Y92.013 Bedroom of single-family (private) house as the place of occurrence of the external cause; Y99.9 Unspecified external cause status
CPT/HCPCS: 70450; 71101; 72125; 99283; 99284

== ENCOUNTER 2024-01-11 17:51 | Emergency (ER) | payer OTHER, SELFPAY ==
[2024-01-11 18:32] VITALS: BP 131/78; PULSE 88; RESP 18; TEMP 36.8; O2SAT 99; BMI 33.4
[2024-01-11 18:59] LABS: MANUAL DIFF FLAG NO
[2024-01-11 19:10] LABS: Ammonia 82 umol/L (13-55)
[2024-01-11 19:13] LABS: Basophils Percent Auto 0.7 % (0-2); Eosinophils Absolute Auto 0.1 X10*3/uL (0.0-0.4); Eosinophils Percent Auto 4.3 % (0-4); Hematocrit 32.3 % (37.0-47.0); Hemoglobin 11.2 g/dl (12.0-16.0); Imm Gran Abs Auto 0.01 X10*3/uL (0.00-0.03); Imm Gran Pct Auto 0.3 % (0.0-0.4); Lymphocytes Absolute Auto 1.1 X10*3/uL (1.2-4.9); Lymphocytes Percent Auto 36.2 % (20-40); Mean Corpuscular HGB Conc 34.7 g/dl (31.0-35.0); Mean Corpuscular Hemoglobin 28.6 pg (27.0-33.0); Mean Corpuscular Volume 82.4 fL (80.0-98.0); Monocytes Absolute Auto 0.2 X10*3/uL (0.1-1.2); Monocytes Percent Auto 7.2 % (2-11); Neutrophils Absolute Auto 1.6 x10*3/uL (2.0-8.3); Neutrophils Percent Auto 51.3 % (45-73); Red Blood Count 3.92 X10*6/uL (4.20-5.50); Red Cell Distribution Width 20.1 % (11.0-16.0)
[2024-01-11 19:14] LABS: Platelet Count 33 X10*3/uL (160-400)
[2024-01-11 19:16] LABS: Ethanol 86 mg/dL
[2024-01-11 19:19] LABS: Alanine Aminotransferase 50 U/L (0-31); Albumin Level 2.7 g/dL (3.5-5.0); Alkaline Phosphatase 78 U/L (39-117); Anion Gap 12 (12-20); Aspartate Amino Transferase 94 U/L (5-31); Bilirubin Total 2.5 mg/dL (0.0-1.0); Blood Urea Nitrogen 10 mg/dL (9-16); Calcium 8.9 mg/dL (8.4-10.2); Carbon Dioxide 21 mmol/L (22-29); Chloride 111 mmol/L (96-108); Creatinine Clr Calc Pharmacy 113.9; Estimated Glomerular Filt Rate > 60; Glucose Random 102 mg/dL (60-115); Potassium 3.7 mmol/L (3.3-5.1); Sodium 140 mmol/L (135-145); Total Protein 7.1 g/dL (6.5-8.0)
[2024-01-11 22:38] VITALS: BP 132/77; PULSE 70; RESP 20; TEMP 36.8; O2SAT 99
[2024-01-11 22:58] LABS: Appearance Urine Clear; Color Urine Dark Yellow; Glucose Urine UA Negative (Negative); Leukocyte Esterase Urine Negative (Negative); Nitrite Urine Negative (Negative); Specific Gravity - Urine 1.015 (1.005-1.025); UMIC TRIGGER UACC YES; Urine Blood Moderate (2+) (Negative); Urine Ketones Negative (Negative); Urine Protein Negative (Neg-Trace)
[2024-01-11 23:01] LABS: Amphetamine Screen Urine Not Detected (Not Detect); Barbiturates, Urine Not Detected (Not Detect); Benzodiazepines Screen Urine Not Detected (Not Detect); Buprenorphine Scr Positive (Not Detect); Cannabinoid Screen Urine POSITIVE (Not Detect); Cocaine Screen Urine Not Detected (Not Detect); Fentanyl, urine Not Detected (Not Detect); Methadone Screen, Urine Not Detected (Not Detect); Opiate Screen Urine Not Detected (Not Detect); Oxycodone Screen Urine Not Detected (Not Detect); Phencyclidine Screen Urine Not Detected (Not Detect)
[2024-01-11 23:38] LABS: Bacteria Urine None Seen (None Seen); Hyaline Casts Urine 0-2 /LPF (0-2); WBC Urine 0-5 /HPF (0-5)
== END 2024-01-12 00:21 | disposition left against medical advice (07) ==
PROVIDERS: Emergency Provider Emergency Medicine Emergency Medical Services; PCP Internal Medicine
DX: F33.1 Major depressive disorder, recurrent, moderate (principal); Z51.81 Encounter for therapeutic drug level monitoring; Z79.899 Other long term (current) drug therapy
CPT/HCPCS: 36415; 80053; 80307; 81001; 82140; 85025; 99283